=== PATIENT | male | born 1940 | race Caucasian/White ===

== ENCOUNTER → 2016-06-23 | Outpatient (CLI) | payer OTHER, BC ==
[~2016-06-23] MED LIST: CLC100 PO; CMD5 PO; CRD4 PO; CZR25 PO; DOCU100C31 PO; DOXA4TAB2 PO; FINA5TAB PO; FLV1 PO; HMLI SC; INSDGI SC; INSDGIPEN SC; INSU100I2 SQ; ISOS30TA3 PO; LEVO25TA5 PO; LSN25 PO; LUTE15CA PO; LUTE20CA PO; MAGN250T3 PO; MELA1TAB49 PO; METO25TA56 PO; MULT-506 PO; NTRGSL/4 UT; PLV75 PO; RPF/8 PO; SIMV40TA4 PO; THM100 PO; WARF-246 PO; WARF5TAB7 PO; WARF5TAB90 PO
[2016-06-23 12:56] LABS: ALT/SGPT 35 U/L (12-78); AST/SGOT 22 U/L (15-37); BLOOD UREA NITROGEN 29 mg/dl (7-18); BUN/CREATININE RATIO 20.4 (10-20); CALCIUM 9.1 mg/dl (8.5-10.1); CARBON DIOXIDE 28 mmol/L (21-32); CHLORIDE 102 mmol/L (98-107); GLUCOSE 165 mg/dl (70-99); POTASSIUM 4.7 mmol/L (3.5-5.1); SODIUM 139 mmol/L (136-145); TRIGLYCERIDES 62 mg/dl (0-150); VERY LOW DENSITY LIPOPROT CALC 12 mg/dl
[2016-06-23 13:07] LABS: ALB/GLOB RATIO 1.3 (0.9-2); ALKALINE PHOSPHATASE 55 U/L (45-117); CHOLESTEROL 170 mg/dl (0-200); HDL CHOLESTEROL 86 mg/dl; LDL CHOLESTEROL CALCULATED 72 mg/dl
[2016-06-23 13:13] LABS: HEMATOCRIT 42.6 % (42-52); MEAN CELL VOLUME 98.8 fL (80-100); MEAN CORPUSCULAR HGB CONC 35.4 g/dl (32-36); MEAN PLATELET VOLUME 10.7 fL (7.4-10.4); PLATELET COUNT 130 K/uL (130-400); RED BLOOD COUNT 4.31 M/uL (4.7-6.1); WHITE BLOOD COUNT 5.02 K/uL (4.8-10.8)
[2016-06-23 13:39] LABS: ESTIMATED AVERAGE GLUCOSE 169 mg/dl; HA1C FLAG Normal (Normal)
== END | disposition home or self-care (01) ==
LOC: C.LABBFT 07:54
PROVIDERS: ATTEND Internal Medicine Cardiovascular Disease
DX: E10.8 Type 1 diabetes mellitus with unspecified complications (principal); I10 Essential (primary) hypertension; E78.5 Hyperlipidemia, unspecified; I25.10 Atherosclerotic heart disease of native coronary artery without angina pectoris

== ENCOUNTER → 2016-10-07 | Outpatient (CLI) | payer OTHER, BC ==
[2016-10-07 13:12] LABS: ESTIMATED AVERAGE GLUCOSE 169 mg/dl; HA1C FLAG Normal (Normal)
== END | disposition home or self-care (01) ==
LOC: C.LABBFT 08:48
PROVIDERS: ATTEND Nurse Practitioner Adult Health
DX: E10.8 Type 1 diabetes mellitus with unspecified complications (principal)

== ENCOUNTER → 2016-12-18 | Outpatient (CLI) | payer OTHER, BC ==
[~2016-12-18] VITALS: Ht 182.9 cm; Wt 87.9 kg
[2016-12-18 13:43] VITALS: BP 157/93; PULSE 79; Ht 182.9 cm; Wt 87.9 kg
[2016-12-18 13:44] VITALS: BP 162/90; PULSE 71
== END | disposition home or self-care (01) ==
LOC: C.NEUR 13:11
PROVIDERS: ATTEND Internal Medicine Pulmonary Disease
DX: G47.31 Primary central sleep apnea (principal); I25.10 Atherosclerotic heart disease of native coronary artery without angina pectoris; R53.83 Other fatigue

== ENCOUNTER → 2016-12-22 | Outpatient (CLI) | payer OTHER, BC | END | disposition home or self-care (01) | LOC: C.LABBFT 11:08 | PROVIDERS: ATTEND Urology | DX: R35.1 Nocturia (principal) ==

== ENCOUNTER 2017-01-10 13:46 | Emergency (ER) | payer OTHER, BC ==
[~2017-01-10] VITALS: Ht 182.9 cm; Wt 87.0 kg
[~2017-01-10 13:46] MED LIST changes: -CZR25 PO; -DOCU100C31 PO; -DOXA4TAB2 PO; -INSDGIPEN SC; -INSU100I2 SQ; -ISOS30TA3 PO; -LEVO25TA5 PO; -LUTE15CA PO; -MAGN250T3 PO; -MELA1TAB49 PO; -WARF-246 PO; -WARF5TAB7 PO; -WARF5TAB90 PO
[2017-01-10 13:47] VITALS: TEMP 36.6; Ht 182.9 cm; Wt 87.0 kg
--- NOTE | 2017-01-10 14:12 | EMERGENCY ROOM VISIT NOTE ---
History First contact with patient: 14:05 Chief Complaint: BLEEDING Stated Complaint: HEMORRAGING SECOND TOE ON RT FOOT Nursing Triage Summary: pt reports he was clipping toenail cut toe has bleeding from middle toe. pt has hx of diabetes and is on coumadin. being teated at [facility] for hematoma on left foot History of Present Illness The patient is a 76 year old male who presents to the Emergency Room with complaints of bleeding. The patient has a history of CVA, PE and DVT. He takes Plavix and Coumadin. The patient states that he was cutting his toenails and accidentally cut his right third toe. It has been bleeding and he has been unable to get the bleeding to stop. His tetanus is up-to-date. He states his last INR was 2 weeks ago and was normal. He denies any falls or other injuries. He denies any pain. Review of Systems A 10 system review of systems was completed with positives and pertinent negatives listed in the HPI. Past Medical/Surgical History Medical Problems: (1) acute DVt and PE (2) Diabetes (3) Hyperlipemia (4) Hypertension Family History Cancer Diabetes mellitus Gallbladder disease Heart disease Hypertension Stroke Social History Smoking Status: Never Smoker Alcohol Use: none Drug Use: none Marital Status: Housing Status: lives with family Occupation Status: retired Current/Historical Medications Scheduled Clopidogrel Bisulfate (Clopidogrel), 75 MG PO QAM Docusate Sodium (Colace *), 300 MG PO QAM Doxazosin Mesylate (Cardura *), 4 MG PO QAM Finasteride (Proscar), 5 MG PO DAILY Folic Acid (Folic Acid), 1 MG PO QAM Insulin Glargine (Lantus), 13 UNITS SC QPM Insulin Lispro (Humalog), UNITS SC ACHS Lutein (Lutein), 25 MG PO DAILY Metoprolol Tartrate (Lopressor) (Lopressor), 25 MG PO BID Multivitamin (Multivitamin), 1 TABLET PO DAILY Nitroglycerin (Nitrostat), 0.4 MG UT PRN Silodosin (Rapaflo), 8 MG PO PM Simvastatin (Zocor), 40 MG PO QPM Thiamine HCl (Vitamin B-1), 100 MG PO QAM Warfarin Sod (Jantoven), 5 MG PO 6XWK Warfarin Sodium (Warfarin Sodium), 2.5 MG PO WEDNESDAY Physical Exam Vital Signs Date Time Temp Pulse Resp B/P (MAP) Pulse Ox O2 Delivery O2 Flow Rate FiO2 01/10/17 15:32 67 18 179/78 97 01/10/17 13:47 36.6 70 18 156/83 94 Room Air Physical Exam VITALS: Vitals are noted on the nurse's note and reviewed by myself. Vital signs stable. GENERAL: This is a 76-year-old male, in no acute distress, nondiaphoretic, well- developed well-nourished. SKIN: There is a very small, less than 0.5 cm she facial skin avulsion to the very distal aspect of the right second toe. This is just distal to the nail and does not seem to involve the nail. HEAD: Normocephalic atraumatic. EARS: The external ears are normal in appearance. EYES: Pupils equal round and reactive to light and accommodation. Conjunctivae without injection, sclerae without icterus. Extraocular movements intact. NOSE: Patent, turbinates without inflammation or discharge. MOUTH: Mucous membranes moist. Tongue does not deviate. NECK: Supple without nuchal rigidity. HEART: Regular rate and rhythm without murmurs gallops or rubs. LUNGS: Clear to auscultation bilaterally without wheezes, rales or rhonchi. No retractions or accessory muscle use. MUSCULOSKELETAL: Skin avulsion as above. There is a nonhealing wound to the left second toe for which he is been evaluated by wound care center and podiatry. The remaining extremities are otherwise unremarkable. NEURO: Patient was alert and oriented to person place and time. No focal neurological deficits. Medical Decision & Procedures Procedure The patient has a small skin avulsion to the right second toe. The patient is on Coumadin and Plavix. The wound continues to bleed. I gave the patient the option of trying Gelfoam or sutures. He and his with like to try the least invasive route. The wound was cleaned. Gelfoam was placed as well as cleaning. The patient was monitored for approximately 15 minutes but the wound continued to ooze. At this time, sutures were placed. A less then 0.5 cm skin avulsion/laceration to the right second toe was repaired. Using sterile technique the wound was cleaned with Betadine. The area was sterilely draped. 2 ml of 1% buffered lidocaine was used to anesthetize the toe. Once the patient was numb, the wound was copiously irrigated under pressure with sterile saline. The wound was explored and there were no deep structures such as tendons, bone, or ligaments present. The laceration was repaired using 2 simple interrupted 4-0 nylon sutures with the wound edges being well approximated. The patient tolerated the procedure well. The bleeding stopped. The area was cleaned with sterile saline and dressed with bacitracin ointment and bandage. ED Course The patient was seen and examined. Previous visits were reviewed. The patient has a small bleeding skin avulsion to the right second toe. He is on Coumadin and Plavix. He could not get the bleeding to stop at home. Initially, Gelfoam was tried but was unsuccessful. 2 sutures were then placed as above and the bleeding stopped. The patient's INR was checked and found to be 2.7. The patient should have the sutures removed in 10-12 days. He should return sooner with any worsening symptoms. He was advised to follow very closely with the wound care center and/or his family doctor to ensure that this heals well without infection given his history of neuropathy and diabetes. The patient was also seen and examined by who agrees with the assessment and treatment plan. Medical Decision The differential diagnosis includes arterial bleed, supratherapeutic INR, skin avulsion, laceration, among others Medication Reconcilliation Current Medication List: was personally reviewed by me Blood Pressure Screening Patient's blood pressure: Elevated blood pressure Blood pressure disposition: Elevated BP felt to be situational, Did not require urgent referral Impression Primary Impression: Toe laceration Departure Information Dispostion Home / Self-Care Condition GOOD Referrals Sheng Sherman M.D. (PCP) Patient Instructions ED Laceration All, My [facility] Additional Instructions Your INR was 2.7 today Keep wound clean and dry. Do not allow any crusting or dried blood to accumulate on sutures. If this occurs, use a 1:1 solution of hydrogen peroxide/ water on a Q-tip to clean the wound. Use an antibiotic ointment for 3-4 days, then let wound dry. Suture removal in 10-12 days. Return sooner for any signs of infection (increasing redness, swelling, drainage). Ice and elevate for swelling and pain. Keep covered when in sun until sutures removed then SPF 50 or higher for one year. Vitamin E oil if desired two weeks after suture removal for reduction of scar. Given the neuropathy, close follow up is imperative to ensure that this heals well and without infection. Follow up with podiatry, the wound center and/or your family doctor. Problem Qualifiers Primary Impression: Toe laceration Encounter type: initial encounter Toe: unspecified toe Damage to nail status: without damage Foreign body presence: without foreign body Laterality: right Qualified Codes: S91.119A - Laceration without foreign body of unspecified toe without damage to nail, initial encounter
[2017-01-10] MEDS ORDERED: WARF-246 PO (14:14)
[2017-01-10] MEDS ORDERED: WARF5TAB7 PO (14:15)
[2017-01-10] MEDS ORDERED: XYLOCAINE 1%/SOD BICARB 20 ML VIAL INFIL ONE (14:15)
[2017-01-10] MEDS ORDERED: GELATIN SPONGE 12-7MM ONE (14:31)
[2017-01-10 15:32] VITALS: BP 179/78; PULSE 67; O2SAT 97
--- NOTE | 2017-01-11 12:56 | EMERGENCY ROOM VISIT NOTE ---
ED Visit Note First contact with patient: 14:05 HPI: Skin avulsion or right 2nd phalanx after cutting nails. On coumadin. PE: AFVSS, NAD NC/AT RRR, no murmurs CTAB Abd soft NT/ND Ext: no edema, erythema. Skin avulsion or right 2nd phalanx with slow ooze/ bleeding. Neuro: grossly intact Plan: Surgi-foam attempted but not successful. Sutures placed. INR wnl. Already had scheduled f/u with wound clinic. I reviewed the patient's past medical history, medications, and visit nursing notes. I discussed the case with the physician senior office support assistant sosa, examined the patient, and agree with the findings and plan as documented in the physician assistants note. Problem List Medical Problems: (1) Diabetes Status: Chronic (2) Hyperlipemia Status: Chronic (3) Hypertension Status: Chronic Current/Historical Medications Scheduled Clopidogrel Bisulfate (Clopidogrel), 75 MG PO QAM Docusate Sodium (Colace *), 300 MG PO QAM Doxazosin Mesylate (Cardura *), 4 MG PO QAM Finasteride (Proscar), 5 MG PO DAILY Folic Acid (Folic Acid), 1 MG PO QAM Insulin Glargine (Lantus), 13 UNITS SC QPM Insulin Lispro (Humalog), UNITS SC ACHS Lutein (Lutein), 25 MG PO DAILY Metoprolol Tartrate (Lopressor) (Lopressor), 25 MG PO BID Multivitamin (Multivitamin), 1 TABLET PO DAILY Nitroglycerin (Nitrostat), 0.4 MG UT PRN Silodosin (Rapaflo), 8 MG PO PM Simvastatin (Zocor), 40 MG PO QPM Thiamine HCl (Vitamin B-1), 100 MG PO QAM Warfarin Sod (Jantoven), 5 MG PO 6XWK Warfarin Sodium (Warfarin Sodium), 2.5 MG PO WEDNESDAY Allergies Coded Allergies: Clindamycin (Verified Allergy, Intermediate, Rash, 01/10/17) Penicillins (Verified Allergy, Unknown, 01/10/17) Sulfa Antibiotics (Verified Allergy, Unknown, HIVES, 01/10/17) PER YUNIOR REYNOLDS (SHE SPOKE WITH PATIENT) Vital Signs Date Time Temp Pulse Resp B/P (MAP) Pulse Ox O2 Delivery O2 Flow Rate FiO2 01/10/17 15:32 67 18 179/78 97 01/10/17 13:47 36.6 70 18 156/83 94 Room Air Laboratory Results Test 01/10/17 14:25 Bedside Prothrombin Time INR 2.7 (0.9-1.1) Departure Information Impression Primary Impression: Toe laceration Dispostion Home / Self-Care Condition GOOD Referrals Sheng Sherman M.D. (PCP) Forms HOME CARE DOCUMENTATION FORM, IMPORTANT VISIT INFORMATION Patient Instructions My [facility], ED Laceration All Additional Instructions Your INR was 2.7 today Keep wound clean and dry. Do not allow any crusting or dried blood to accumulate on sutures. If this occurs, use a 1:1 solution of hydrogen peroxide/ water on a Q-tip to clean the wound. Use an antibiotic ointment for 3-4 days, then let wound dry. Suture removal in 10-12 days. Return sooner for any signs of infection (increasing redness, swelling, drainage). Ice and elevate for swelling and pain. Keep covered when in sun until sutures removed then SPF 50 or higher for one year. Vitamin E oil if desired two weeks after suture removal for reduction of scar. Given the neuropathy, close follow up is imperative to ensure that this heals well and without infection. Follow up with podiatry, the wound center and/or your family doctor.
== END 2017-01-10 15:33 | disposition home or self-care (01) ==
LOC: C.EDB 13:48
DX: S91.114A Laceration without foreign body of right lesser toe(s) without damage to nail, initial encounter (principal); W26.8XXA Contact with other sharp object(s), not elsewhere classified, initial encounter; Z79.01 Long term (current) use of anticoagulants; E11.9 Type 2 diabetes mellitus without complications; Z79.4 Long term (current) use of insulin; I10 Essential (primary) hypertension; E78.5 Hyperlipidemia, unspecified; Z79.899 Other long term (current) drug therapy; Z86.711 Personal history of pulmonary embolism; Z86.718 Personal history of other venous thrombosis and embolism; Z82.49 Family history of ischemic heart disease and other diseases of the circulatory system

== ENCOUNTER → 2017-01-13 | Outpatient (CLI) | payer OTHER, BC ==
[~2017-01-13] MED LIST changes: -CMD5 PO; +CZR25 PO; +DOCU100C31 PO; +DOXA4TAB2 PO; +INSDGIPEN SC; +INSU100I2 SQ; +LEVO25TA5 PO; -LSN25 PO; +LUTE15CA PO; +MAGN250T3 PO; +MELA1TAB49 PO; +WARF-246 PO; +WARF5TAB7 PO; +WARF5TAB90 PO
[2017-01-13 13:18] LABS: ESTIMATED AVERAGE GLUCOSE 157 mg/dl; HA1C FLAG Normal (Normal)
[2017-01-13 17:55] LABS: BLOOD UREA NITROGEN 20 mg/dl (7-18); BUN/CREATININE RATIO 16.6 (10-20); CALCIUM 8.8 mg/dl (8.5-10.1); CARBON DIOXIDE 26 mmol/L (21-32); CHLORIDE 104 mmol/L (98-107); GLUCOSE 236 mg/dl (70-99); POTASSIUM 4.3 mmol/L (3.5-5.1); SODIUM 136 mmol/L (136-145)
== END | disposition home or self-care (01) ==
LOC: C.LABBFT 11:03
PROVIDERS: ATTEND Nurse Practitioner Adult Health
DX: I10 Essential (primary) hypertension (principal); E55.9 Vitamin D deficiency, unspecified; E03.9 Hypothyroidism, unspecified; E10.8 Type 1 diabetes mellitus with unspecified complications

== ENCOUNTER → 2017-01-13 | Outpatient (CLI) | payer OTHER, BC ==
[2017-01-14 14:03] LABS: RATIO 6.5 mcg/mg (0-30.0)
== END | disposition home or self-care (01) ==
LOC: C.LABSPEC 09:23
PROVIDERS: ATTEND Nurse Practitioner Adult Health
DX: I10 Essential (primary) hypertension (principal); E55.9 Vitamin D deficiency, unspecified; E03.9 Hypothyroidism, unspecified; E10.8 Type 1 diabetes mellitus with unspecified complications

== ENCOUNTER 2017-01-18 23:24 | Emergency (ER) | payer OTHER, BC ==
[~2017-01-18] VITALS: Ht 182.9 cm; Wt 87.4 kg
[~2017-01-18 23:24] MED LIST changes: -CZR25 PO; -DOCU100C31 PO; -DOXA4TAB2 PO; -INSDGIPEN SC; -INSU100I2 SQ; -LEVO25TA5 PO; -LUTE15CA PO; -MAGN250T3 PO; -MELA1TAB49 PO; -WARF5TAB90 PO
[2017-01-18 23:33] VITALS: TEMP 37; O2SAT 96; Ht 182.9 cm; Wt 87.4 kg
[2017-01-18] MEDS ORDERED: LABETALOL HCL IV 5 MG/ML 20ML IV STA (23:33)
--- NOTE | 2017-01-18 23:41 | EMERGENCY ROOM VISIT NOTE ---
History Report prepared by Leroy: Yesenia Rai Under the Supervision of: Dr. Martin Blankenship M.D. First contact with patient: 23:29 Chief Complaint: HYPERTENSION Stated Complaint: HYPERTENSION History of Present Illness The patient is a 76 year old male who presents to the Emergency Room with complaints of an episode of hypertension starting this evening. He states he was started on Locorten 25 mg half a pill this morning. He reports that this evening he started feeling warm. He states he got up and moved around to try to help it. He notes that it didn't go away so he took his blood pressure. He reports that it was 110 over something. The patient notes that it he decided to come in. He denies shortness of breath, chest pain, nausea, vomiting, back pain , abdominal pain, headache, and falls. He notes he is on Warfarin and Insulin. He notes he was here a week ago for a laceration that required stitched on his foot. Source of History: patient Onset: this evening Position: other (global) Quality: other (global) Timing: other (episode) Associated Symptoms: No headache, No chest pain, No SOB, No nausea, No vomiting, No abdominal pain, No back pain Note: The patient complains of feeling warm. The patient denies any recent falls. Review of Systems See HPI for pertinent positives & negatives. A total of 10 systems reviewed and were otherwise negative. Past Medical & Surgical Medical Problems: (1) acute DVt and PE (2) Diabetes (3) Hyperlipemia (4) Hypertension Family History Cancer Diabetes mellitus Gallbladder disease Heart disease Hypertension Stroke Social History Smoking Status: Never Smoker Alcohol Use: none Drug Use: none Marital Status: Housing Status: lives with family Occupation Status: retired Current/Historical Medications Scheduled Clopidogrel Bisulfate (Clopidogrel), 75 MG PO QAM Docusate Sodium (Docusate Sodium), 300 MG PO QPM Doxazosin Mesylate (Cardura), 4 MG PO QAM Finasteride (Proscar), 5 MG PO QPM Folic Acid (Folic Acid), 1 MG PO QAM Insulin Glargine (Lantus Solostar), 12 UNITS SC HS Insulin Lispro (Human) (Humalog Kwikpen), UNITS SQ ACHS Levothyroxine Sodium (Levothyroxine Sodium), 25 MCG PO DAILY Losartan Potassium (Losartan Potassium), 12.5 MG PO DAILY Lutein-Zeaxanthin (Lutein), 1 CAP PO DAILY Magnesium (Magnesium 250 mg), 250 MG PO QAM Melatonin (Melatonin), 3 MG PO HS Metoprolol Tartrate (Lopressor) (Lopressor), 25 MG PO BID Multivitamin (Multivitamin), 1 TABLET PO DAILY Silodosin (Rapaflo), 8 MG PO PM Simvastatin (Zocor), 40 MG PO QPM Thiamine HCl (Vitamin B-1), 100 MG PO QAM Warfarin Sodium (Coumadin), 5 MG PO DAILY Scheduled PRN Nitroglycerin (Nitrostat), 0.4 MG UT UD PRN for Chest Pain Allergies Coded Allergies: Clindamycin (Verified Allergy, Intermediate, Rash, 01/19/17) Penicillins (Verified Allergy, Unknown, 01/19/17) Sulfa Antibiotics (Verified Allergy, Unknown, HIVES, 01/19/17) PER YUNIOR REYNOLDS (SHE SPOKE WITH PATIENT) Physical Exam Vital Signs Date Time Temp Pulse Resp B/P (MAP) Pulse Ox O2 Delivery O2 Flow Rate FiO2 01/19/17 00:36 82 18 180/101 94 Room Air 01/19/17 00:08 79 18 165/95 96 Room Air 01/19/17 00:04 81 18 191/92 95 Room Air 01/18/17 23:41 84 18 204/111 94 Room Air 01/18/17 23:33 99 01/18/17 23:33 96 Room Air 01/18/17 23:33 37.0 97 18 226/136 96 Room Air Physical Exam GENERAL: Patient is well appearing and in no acute distress. HEENT: No acute trauma, normocephalic atraumatic, mucous membranes moist, no nasal congestion, no scleral icterus. NECK: No stridor, no adenopathy, no meningismus, trachea is midline. LUNGS: No dyspnea. Clear to auscultation and equal bilaterally. No wheeze, no rhonchi. HEART: Regular rate and rhythm. No murmurs, rubs, gallops appreciated. ABDOMEN: Soft, nontender, bowel sounds positive, no masses appreciated, no peritonitis. BACK: No midline tenderness, no CVA tenderness EXTREMITIES: Normal motion all extremities, no cyanosis, no edema. Second toe of right foot has well healed laceration with sutures intact. NEUROLOGIC: Alert and oriented, no acute motor or sensory deficits, no focal weakness, cranial nerves grossly intact. SKIN: No rash, no jaundice, no diaphoresis. Medical Decision & Procedures Laboratory Results 01/18/17 23:48 Red Blood Count 4.34, Mean Corpuscular Volume 97.9, Mean Corpuscular Hemoglobin 34.3, Mean Corpuscular Hemoglobin Concent 35.1, Mean Platelet Volume 9.8, Neutrophils (%) (Auto) 64.7, Lymphocytes (%) (Auto) 22.1, Monocytes (%) (Auto) 11.1, Eosinophils (%) (Auto) 1.7, Basophils (%) (Auto) 0.2, Neutrophils # (Auto ) 3.83, Lymphocytes # (Auto) 1.31, Monocytes # (Auto) 0.66, Eosinophils # (Auto ) 0.10, Basophils # (Auto) 0.01 01/18/17 23:48 Test 01/18/17 23:48 White Blood Count 5.92 K/uL (4.8-10.8) Red Blood Count 4.34 M/uL (4.7-6.1) Hemoglobin 14.9 g/dL (14.0-18.0) Hematocrit 42.5 % (42-52) Mean Corpuscular Volume 97.9 fL (80-100) Mean Corpuscular Hemoglobin 34.3 pg (25-34) Mean Corpuscular Hemoglobin Concent 35.1 g/dl (32-36) Platelet Count 128 K/uL (130-400) Mean Platelet Volume 9.8 fL (7.4-10.4) Neutrophils (%) (Auto) 64.7 % Lymphocytes (%) (Auto) 22.1 % Monocytes (%) (Auto) 11.1 % Eosinophils (%) (Auto) 1.7 % Basophils (%) (Auto) 0.2 % Neutrophils # (Auto) 3.83 K/uL (1.4-6.5) Lymphocytes # (Auto) 1.31 K/uL (1.2-3.4) Monocytes # (Auto) 0.66 K/uL (0.11-0.59) Eosinophils # (Auto) 0.10 K/uL (0-0.5) Basophils # (Auto) 0.01 K/uL (0-0.2) RDW Standard Deviation 41.8 fL (36.4-46.3) RDW Coefficient of Variation 11.7 % (11.5-14.5) Immature Granulocyte % (Auto) 0.2 % Immature Granulocyte # (Auto) 0.01 K/uL (0.00-0.02) Prothrombin Time 20.7 SECONDS (9.0-12.0) Prothromb Time International Ratio 1.9 (0.9-1.1) Anion Gap 10.0 mmol/L (3-11) Est Creatinine Clear Calc Drug Dose 53.1 ml/min Estimated GFR () 61.4 Estimated GFR (Non- 53.0 BUN/Creatinine Ratio 18.0 (10-20) Calcium Level 8.7 mg/dl (8.5-10.1) Troponin I < 0.015 ng/ml (0-0.045) Chemistry Specimen Hemolysis Laboratory results as reviewed by me. Medications Administered Medications (Trade) Dose Ordered Sig/Yadi Route Start Time Stop Time Status Last Admin Dose Admin Labetalol HCl (Normodyne IV) 10 mg NOW STAT IV 01/18/17 23:33 01/18/17 23:35 DC 01/19/17 00:03 10 MG ECG Indication: other (hypertensive) Rate (beats per minute): 96 Rhythm: sinus rhythm Findings: PAC, PVC, no acute ischemic change ED Course 2329: The patient was evaluated in room A11B. A complete history and physical exam was performed. 2333: Ordered Labetalol HCl 10 mg IV. 0010: I removed 2 stitches from his toe. His blood pressure is 160/90. He has no further symptoms. 0058: Reevaluated the patient. Discussed results and discharge instructions: He verbalized understanding and agreement. The patient is ready for discharge. Medical Decision Differential: Benign Hypertension, Hypertensive Urgency/Emergency, Cardiovascular Pathology, Endocrine, Metabolic/Electrolyte, Renal Disease, Endorgan Damage, amongst other pathologies entertained. 76 yr old male arrives for complaint of HTN. Notes that he started feeling warm earlier and took his blood pressure with SBP 180s and thus called 911. At no time did he have any other symptoms. He looks fine other than a bit anxious. SBP 210 on arrival thus small dose Labetalol with SBP dropping to 160s. Assymtomatic and feeling well. Labs unremarkable. It doesn't appear 12.5 Losartan will be doing the trick, thus will have him increase this to 25 daily and continue monitoring BPs at home and with PCP. He was instructed symptoms to monitor for that would require RTED. INR mildly low side and will discuss with coumadin provider. Sutures right toe removed without issue. Head Trauma GCS Score: 15 Medication Reconcilliation Current Medication List: was personally reviewed by me Blood Pressure Screening Patient's blood pressure: Elevated blood pressure Blood pressure disposition: Referred to PCP Impression Primary Impression: Hypertension Additional Impressions: Encounter for removal of sutures Subtherapeutic anticoagulation Scribe Attestation The scribe's documentation has been prepared under my direction and personally reviewed by me in its entirety. I confirm that the note above accurately reflects all work, treatment, procedures, and medical decision making performed by me. Departure Information Dispostion Home / Self-Care Referrals Sheng Sherman M.D. (PCP) Forms HOME CARE DOCUMENTATION FORM, IMPORTANT VISIT INFORMATION, WORK / SCHOOL INSTRUCTIONS Patient Instructions My [facility] Additional Instructions Please increase your Losartan dose to 25 mg (one tablet) daily. It may be necessary to increase this even further down the road, though you should discuss this with your primary care provider for further decision regarding medication choices. Your blood pressure was elevated during this visit. This is quite common in many people who are being evaluated in the Emergency Department for many reasons. However, it is important that you have your Primary Care Provider recheck your blood pressure and discuss whether treatment will be needed. halfway elevated blood pressure can lead to strokes, heart attacks, kidney failure amongst other medical issues. If you develop severe headaches, chest pain, weakness in arms or legs, or other concerning symptoms call 911. Your INR was 1.9 today. This may just be variation in the timing of the lab check, but you should discuss this as soon as possible with your Coumadin Clinic , or whoever manages your Coumadin dosing. Your sutures were removed. Avoid further trauma to the area. Return if swelling, drainage, rash, pain, or other concerning symptoms. Problem Qualifiers
[2017-01-19 00:12] LABS: BASO % 0.2 %; BASO ABS # 0.01 K/uL (0-0.2); COMPLETE YES; EOS % 1.7 %; HEMATOCRIT 42.5 % (42-52); IG% 0.2 %; LYMPH % 22.1 %; LYMPH ABS # 1.31 K/uL (1.2-3.4); MEAN CELL VOLUME 97.9 fL (80-100); MEAN CORPUSCULAR HEMOGLOBIN 34.3 pg (25-34); MEAN CORPUSCULAR HGB CONC 35.1 g/dl (32-36); MEAN PLATELET VOLUME 9.8 fL (7.4-10.4); MONO % 11.1 %; NEUT % 64.7 %; PLATELET COUNT 128 K/uL (130-400); RED BLOOD COUNT 4.34 M/uL (4.7-6.1); WHITE BLOOD COUNT 5.92 K/uL (4.8-10.8)
[2017-01-19] MEDS ORDERED: WARF5TAB90 PO (00:15)
[2017-01-19] MEDS ORDERED: CZR25 PO (00:18)
[2017-01-19] MEDS ORDERED: LEVO25TA5 PO (00:18)
[2017-01-19 00:23] LABS: INR 1.9 (0.9-1.1); PROTHROMBIN TIME (PATIENT) 20.7 SECONDS (9.0-12.0)
[2017-01-19] MEDS ORDERED: DOXA4TAB2 PO (00:24)
[2017-01-19] MEDS ORDERED: INSU100I2 SQ (00:24)
[2017-01-19] MEDS ORDERED: LUTE15CA PO (00:24)
[2017-01-19] MEDS ORDERED: DOCU100C31 PO (00:24)
[2017-01-19] MEDS ORDERED: MELA1TAB49 PO (00:24)
[2017-01-19] MEDS ORDERED: MAGN250T3 PO (00:24)
[2017-01-19] MEDS ORDERED: INSDGIPEN SC (00:24)
[2017-01-19 00:32] LABS: BLOOD UREA NITROGEN 23 mg/dl (7-18); CALCIUM 8.7 mg/dl (8.5-10.1); CARBON DIOXIDE 25 mmol/L (21-32); CHLORIDE 103 mmol/L (98-107); GLUCOSE 233 mg/dl (70-99); POTASSIUM 4.1 mmol/L (3.5-5.1); SODIUM 138 mmol/L (136-145)
[2017-01-19 00:36] VITALS: BP 180/101; PULSE 82; O2SAT 94
== END 2017-01-19 01:02 | disposition home or self-care (01) ==
LOC: EDBD 23:24 → C.EDA 23:26
DX: I10 Essential (primary) hypertension (principal); R79.1 Abnormal coagulation profile; Z86.718 Personal history of other venous thrombosis and embolism; Z86.711 Personal history of pulmonary embolism; E11.9 Type 2 diabetes mellitus without complications; E78.5 Hyperlipidemia, unspecified; Z80.9 Family history of malignant neoplasm, unspecified; Z83.3 Family history of diabetes mellitus; Z83.79 Family history of other diseases of the digestive system; Z82.49 Family history of ischemic heart disease and other diseases of the circulatory system; Z79.4 Long term (current) use of insulin; Z79.01 Long term (current) use of anticoagulants; Z79.899 Other long term (current) drug therapy

== ENCOUNTER → 2017-01-29 | Outpatient (CLI) | payer OTHER, BC ==
[~2017-01-29] MED LIST changes: -CLC100 PO; -CRD4 PO; +CZR25 PO; +DOCU100C31 PO; +DOXA4TAB2 PO; -HMLI SC; -INSDGI SC; +INSDGIPEN SC; +INSU100I2 SQ; +LEVO25TA5 PO; +LUTE15CA PO; -LUTE20CA PO; +MAGN250T3 PO; +MELA1TAB49 PO; -WARF-246 PO; -WARF5TAB7 PO; +WARF5TAB90 PO
[2017-01-29 17:07] LABS: BLOOD UREA NITROGEN 19 mg/dl (7-18); BUN/CREATININE RATIO 13.7 (10-20); CALCIUM 8.5 mg/dl (8.5-10.1); CARBON DIOXIDE 27 mmol/L (21-32); CHLORIDE 102 mmol/L (98-107); GLUCOSE 186 mg/dl (70-99); MAGNESIUM 2.3 mg/dl (1.8-2.4); POTASSIUM 3.9 mmol/L (3.5-5.1); SODIUM 136 mmol/L (136-145)
== END | disposition home or self-care (01) ==
LOC: C.LABBFT 13:43
PROVIDERS: ATTEND Physician Assistant Medical
DX: I10 Essential (primary) hypertension (principal)

== ENCOUNTER → 2017-03-12 | Outpatient (CLI) | payer OTHER, BC ==
[2017-03-12 12:55] LABS: INR 2.2 (0.9-1.1); PROTHROMBIN TIME (PATIENT) 24.7 SECONDS (9.0-12.0)
[2017-03-12 13:11] LABS: BLOOD UREA NITROGEN 20 mg/dl (7-18); BUN/CREATININE RATIO 14.4 (10-20); CARBON DIOXIDE 27 mmol/L (21-32); CHLORIDE 102 mmol/L (98-107); GLUCOSE 248 mg/dl (70-99); POTASSIUM 4.6 mmol/L (3.5-5.1); SODIUM 135 mmol/L (136-145)
== END | disposition home or self-care (01) ==
LOC: C.LABBFT 10:07
PROVIDERS: ATTEND Physician Assistant Medical
DX: I10 Essential (primary) hypertension (principal); Z51.81 Encounter for therapeutic drug level monitoring; Z79.01 Long term (current) use of anticoagulants

== ENCOUNTER → 2017-06-14 | Outpatient (CLI) | payer OTHER, BC ==
[2017-06-14 18:22] LABS: HEMOGLOBIN 14.4 g/dL (14.0-18.0); MEAN CELL VOLUME 99.5 fL (80-100); MEAN CORPUSCULAR HGB CONC 35.1 g/dl (32-36); MEAN PLATELET VOLUME 10.3 fL (7.4-10.4); PLATELET COUNT 135 K/uL (130-400); RED CELL DISTRIBUTION WIDTH CV 12.5 % (11.5-14.5); RED CELL DISTRIBUTION WIDTH SD 45.1 fL (36.4-46.3); WHITE BLOOD COUNT 4.47 K/uL (4.8-10.8)
[2017-06-14 18:43] LABS: HEMOGLOBIN A1C 7.3 % (4.5-5.6)
== END | disposition home or self-care (01) ==
LOC: C.LABBFT 13:41
PROVIDERS: ATTEND Nurse Practitioner Adult Health
DX: E03.9 Hypothyroidism, unspecified (principal); E10.29 Type 1 diabetes mellitus with other diabetic kidney complication; I10 Essential (primary) hypertension; E78.5 Hyperlipidemia, unspecified; I25.10 Atherosclerotic heart disease of native coronary artery without angina pectoris; D68.59 Other primary thrombophilia; Z79.01 Long term (current) use of anticoagulants

== ENCOUNTER → 2017-06-18 | Outpatient (CLI) | payer OTHER, BC ==
[2017-06-18 14:16] LABS: ALKALINE PHOSPHATASE 67 U/L (45-117); ALT/SGPT 40 U/L (12-78); AST/SGOT 32 U/L (15-37); BLOOD UREA NITROGEN 23 mg/dl (7-18); CALCIUM 9.1 mg/dl (8.5-10.1); CARBON DIOXIDE 27 mmol/L (21-32); CHOLESTEROL 149 mg/dl (0-200); CREATININE 1.24 mg/dl (0.60-1.40); GLUCOSE 195 mg/dl (70-99); LDL CHOLESTEROL CALCULATED 57 mg/dl; SODIUM 137 mmol/L (136-145); TOTAL PROTEIN 7.2 gm/dl (6.4-8.2)
== END | disposition home or self-care (01) ==
LOC: C.LABBC 11:41
PROVIDERS: ATTEND Internal Medicine
DX: I12.9 Hypertensive chronic kidney disease with stage 1 through stage 4 chronic kidney disease, or unspecified chronic kidney disease (principal); I25.10 Atherosclerotic heart disease of native coronary artery without angina pectoris; G47.31 Primary central sleep apnea; D68.51 Activated protein C resistance; E03.9 Hypothyroidism, unspecified; N18.2 Chronic kidney disease, stage 2 (mild)

== ENCOUNTER → 2017-06-22 | Outpatient (CLI) | payer OTHER, BC ==
[~2017-06-22] VITALS: Ht 182.9 cm; Wt 90.9 kg
[2017-06-22 15:24] VITALS: BP 150/81; PULSE 77; Ht 182.9 cm; Wt 90.9 kg
== END | disposition home or self-care (01) ==
LOC: C.NEUR 14:10
PROVIDERS: ATTEND Internal Medicine Pulmonary Disease
DX: G47.31 Primary central sleep apnea (principal); G47.33 Obstructive sleep apnea (adult) (pediatric); R09.81 Nasal congestion

== ENCOUNTER 2017-09-22 16:31 | Emergency (ER) | payer OTHER, BC ==
[~2017-09-22] VITALS: Ht 182.9 cm; Wt 91.3 kg
[2017-09-22 16:38] VITALS: TEMP 36.3; Ht 182.9 cm; Wt 91.3 kg
[2017-09-22 18:19] LABS: BASO % 0.3 %; BASO ABS # 0.02 K/uL (0-0.2); EOS % 1.3 %; EOS ABS # 0.08 K/uL (0-0.5); HEMATOCRIT 40.3 % (42-52); HEMOGLOBIN 14.5 g/dL (14.0-18.0); IG# 0.01 K/uL (0.00-0.02); LYMPH % 25.3 %; LYMPH ABS # 1.52 K/uL (1.2-3.4); MEAN CELL VOLUME 97.6 fL (80-100); MEAN CORPUSCULAR HEMOGLOBIN 35.1 pg (25-34); MEAN PLATELET VOLUME 9.6 fL (7.4-10.4); MONO % 12.2 %; MONO ABS # 0.73 K/uL (0.11-0.59); NEUT % 60.7 %; NEUT ABS # 3.64 K/uL (1.4-6.5); PLATELET COUNT 151 K/uL (130-400)
[2017-09-22 18:33] LABS: BLOOD UREA NITROGEN 23 mg/dl (7-18); CALCIUM 9.1 mg/dl (8.5-10.1); CARBON DIOXIDE 30 mmol/L (21-32); CREATININE 1.45 mg/dl (0.60-1.40); GLUCOSE 238 mg/dl (70-99); POTASSIUM 4.4 mmol/L (3.5-5.1); SODIUM 134 mmol/L (136-145)
--- NOTE | 2017-09-22 18:37 | DIAGNOSTIC IMAGING REPORT ---
CHEST ONE VIEW PORTABLE CLINICAL HISTORY: 76 years-old Male presenting with Chest Pain. TECHNIQUE: Portable upright AP view of the chest was obtained. COMPARISON: 12/15/2015. FINDINGS: Atherosclerosis of aortic arch. Tortuosity of the descending thoracic aorta. Cardiac silhouette mildly enlarged. Minimal linear opacities at the left lung base. Lungs otherwise clear. No large pleural effusion or pneumothorax. Degenerative changes of the thoracic spine. IMPRESSION: 1. Mild cardiomegaly, however, this artifactual due to AP technique. 2. Suggestion of minimal left basilar atelectasis or scarring. Electronically signed by: Sheng Marroquin M.D. 09/22/2017 6:35 PM Dictated Date/Time: 09/22/2017 6:34 PM
[2017-09-22 18:38] LABS: CKMB 3.8 ng/ml (0.5-3.6)
[2017-09-22] MEDS ORDERED: FOLI1TAB8 PO (18:49)
[2017-09-22] MEDS ORDERED: WARF-246 PO ×2 (18:49)
[2017-09-22] MEDS ORDERED: CRD4 PO (18:49)
[2017-09-22] MEDS ORDERED: INSDGI SC (18:49)
[2017-09-22] MEDS ORDERED: PRS5 PO (18:49)
[2017-09-22] MEDS ORDERED: ZCR40 PO (18:49)
[2017-09-22] MEDS ORDERED: LOSA100T65 PO (18:49)
[2017-09-22] MEDS ORDERED: LPR25 PO (18:49)
[2017-09-22] MEDS ORDERED: PYRI100T4 PO (18:53)
[2017-09-22 18:57] LABS: INR 2.2 (0.9-1.1)
[2017-09-22] MEDS ORDERED: INSU100I SC (18:57)
[2017-09-22 19:43] VITALS: BP 177/93; PULSE 73; O2SAT 96
--- NOTE | 2017-09-23 00:01 | EMERGENCY ROOM VISIT NOTE ---
History Report prepared by Leroy: Caitlin Woo Under the Supervision of: Dr. Kishan Lloyd D.O. First contact with patient: 17:40 Chief Complaint: BACK PAIN Stated Complaint: UPPER BACK PAIN History of Present Illness The patient is a 76 year old male who presents to the Emergency Room with complaints of intermittent left upper back pain starting 3 days ago. The pain is near his shoulder blade. It worsens with movement and bending over and twisting his upper body towards the right. He has been taking Tylenol to some relief. There is no change with breathing. He has been coughing for the past 2 months. The cough has improved. He denies any weakness, numbness, runny nose, sore throat, abdominal pain, chest pain, or leg pain. His notes that he appeared flushed in the face one morning. His left ankle was also swollen yesterday. The patient is on warfarin for a history of blood clots. His INR 2 weeks ago and today was 2.5. He does not recall the last time his INR was low. He has a history of factor V Leiden. Source of History: patient, spouse/significant other Onset: 3 days ago Position: back (upper) Timing: intermittent Modifying Factors (Worsening): other (bending over) Modifying Factors (Relieving): tylenol Associated Symptoms: + cough, No sorethroat, No chest pain, No abdominal pain, No weakness, No numbness Review of Systems See HPI for pertinent positives & negatives. A total of 10 systems reviewed and were otherwise negative. Past Medical & Surgical Medical Problems: (1) acute DVt and PE (2) Diabetes (3) Hyperlipemia (4) Hypertension Family History Cancer Diabetes mellitus Gallbladder disease Heart disease Hypertension Stroke Social History Smoking Status: Never Smoker Alcohol Use: none Drug Use: none Marital Status: Housing Status: lives with family Occupation Status: retired Current/Historical Medications Scheduled Docusate Sodium (Docusate Sodium), 300 MG PO QPM Doxazosin Mesylate (Doxazosin Mesylate), 4 MG PO QAM Finasteride (Finasteride), 5 MG PO QPM Folic Acid (Folvite), 1 MG PO DAILY Insulin Glargine (Lantus), 25 UNITS SC QPM Insulin Lispro (Human) (Humalog), 1 DOSE SC ACHS Levothyroxine Sodium (Levothyroxine Sodium), 25 MCG PO DAILY Losartan Potassium (Cozaar), 100 MG PO QAM Lutein-Zeaxanthin (Lutein), 1 CAP PO DAILY Magnesium (Magnesium 250 mg), 250 MG PO DAILY Metoprolol Tartrate (Lopressor), 25 MG PO BID Multivitamin (Multivitamin), 1 TABLET PO DAILY Pyridoxine (Vitamin B6), 100 MG PO DAILY Silodosin (Rapaflo), 8 MG PO PM Simvastatin (Simvastatin), 40 MG PO QPM Warfarin Sodium (Warfarin Sodium), 2.5 MG PO 2XWK Warfarin Sodium (Warfarin Sodium), 5 MG PO 5XWK Scheduled PRN Nitroglycerin (Nitrostat), 0.4 MG UT UD PRN for Chest Pain Allergies Coded Allergies: Clindamycin (Verified Allergy, Intermediate, Rash, 01/19/17) Penicillins (Verified Allergy, Unknown, 01/19/17) Sulfa Antibiotics (Verified Allergy, Unknown, HIVES, 01/19/17) PER YUNIOR REYNOLDS (SHE SPOKE WITH PATIENT) Physical Exam Vital Signs Date Time Temp Pulse Resp B/P (MAP) Pulse Ox O2 Delivery O2 Flow Rate FiO2 09/22/17 19:43 73 16 177/93 96 09/22/17 19:07 67 18 163/93 96 Room Air 09/22/17 18:23 69 09/22/17 16:38 36.3 84 18 144/73 94 Room Air Physical Exam GENERAL: Sitting up in bed, alert, well appearing, well nourished, no distress, non-toxic EYE EXAM: normal conjunctiva. OROPHARYNX: no exudate, no erythema, lips, buccal mucosa, and tongue normal and mucous membranes are moist NECK: supple, no nuchal rigidity, no adenopathy, non-tender LUNGS: Clear to auscultation. Normal chest wall mechanics HEART: no murmurs, S1 normal and S2 normal ABDOMEN: abdomen soft, non-tender, normo-active bowel sounds, no masses, no rebound or guarding. BACK: Back is symmetrical on inspection and there is no deformity, no midline tenderness, no CVA tenderness. SKIN: no rashes and no bruising UPPER EXTREMITIES: upper extremities are grossly normal. LOWER EXTREMITIES: No pitting edema. NEURO EXAM: Normal sensorium, cranial nerves II-XII grossly intact, normal speech, no gross weakness of arms, no gross weakness of legs. Medical Decision & Procedures ER Provider Diagnostic Interpretation: Radiology results as stated below per my review and the radiologist's interpretation: CHEST ONE VIEW PORTABLE CLINICAL HISTORY: 76 years-old Male presenting with Chest Pain. TECHNIQUE: Portable upright AP view of the chest was obtained. COMPARISON: 12/15/2015. FINDINGS: Atherosclerosis of aortic arch. Tortuosity of the descending thoracic aorta. Cardiac silhouette mildly enlarged. Minimal linear opacities at the left lung base. Lungs otherwise clear. No large pleural effusion or pneumothorax. Degenerative changes of the thoracic spine. IMPRESSION: 1. Mild cardiomegaly, however, this artifactual due to AP technique. 2. Suggestion of minimal left basilar atelectasis or scarring. Electronically signed by: Sheng Marroquin M.D. 09/22/2017 6:35 PM Dictated Date/Time: 09/22/2017 6:34 PM Laboratory Results 09/22/17 18:05 Red Blood Count 4.13, Mean Corpuscular Volume 97.6, Mean Corpuscular Hemoglobin 35.1, Mean Corpuscular Hemoglobin Concent 36.0, Mean Platelet Volume 9.6, Neutrophils (%) (Auto) 60.7, Lymphocytes (%) (Auto) 25.3, Monocytes (%) (Auto) 12.2, Eosinophils (%) (Auto) 1.3, Basophils (%) (Auto) 0.3, Neutrophils # (Auto ) 3.64, Lymphocytes # (Auto) 1.52, Monocytes # (Auto) 0.73, Eosinophils # (Auto ) 0.08, Basophils # (Auto) 0.02 09/22/17 18:05 Test 09/22/17 18:05 White Blood Count 6.00 K/uL (4.8-10.8) Red Blood Count 4.13 M/uL (4.7-6.1) Hemoglobin 14.5 g/dL (14.0-18.0) Hematocrit 40.3 % (42-52) Mean Corpuscular Volume 97.6 fL (80-100) Mean Corpuscular Hemoglobin 35.1 pg (25-34) Mean Corpuscular Hemoglobin Concent 36.0 g/dl (32-36) Platelet Count 151 K/uL (130-400) Mean Platelet Volume 9.6 fL (7.4-10.4) Neutrophils (%) (Auto) 60.7 % Lymphocytes (%) (Auto) 25.3 % Monocytes (%) (Auto) 12.2 % Eosinophils (%) (Auto) 1.3 % Basophils (%) (Auto) 0.3 % Neutrophils # (Auto) 3.64 K/uL (1.4-6.5) Lymphocytes # (Auto) 1.52 K/uL (1.2-3.4) Monocytes # (Auto) 0.73 K/uL (0.11-0.59) Eosinophils # (Auto) 0.08 K/uL (0-0.5) Basophils # (Auto) 0.02 K/uL (0-0.2) RDW Standard Deviation 43.0 fL (36.4-46.3) RDW Coefficient of Variation 12.0 % (11.5-14.5) Immature Granulocyte % (Auto) 0.2 % Immature Granulocyte # (Auto) 0.01 K/uL (0.00-0.02) Prothrombin Time 22.7 SECONDS (9.0-12.0) Prothromb Time International Ratio 2.2 (0.9-1.1) D-Dimer 260 ug/L FEU (0-500) Anion Gap 1.0 mmol/L (3-11) Est Creatinine Clear Calc Drug Dose 47.6 ml/min Estimated GFR () 53.8 Estimated GFR (Non- 46.4 BUN/Creatinine Ratio 15.9 (10-20) Calcium Level 9.1 mg/dl (8.5-10.1) Total Creatine Kinase 239 U/L (39-308) Creatine Kinase MB 3.8 ng/ml (0.5-3.6) Creatine Kinase MB Ratio 1.6 (0-3.0) Troponin I < 0.015 ng/ml (0-0.045) Laboratory results per my review. ECG Per My Interpretation Indication: back/shoulder pain Rate (beats per minute): 74 Rhythm: sinus rhythm Findings: Q waves (Septal), T-wave inversion (Lateral), other (normal axis, ST wave flattening laterally) Comparison ECG Date: 18-Jan-2017 Change: T wave inversion in V4 is new. ED Course ED COURSE: Vital signs were reviewed and showed normal vitals. The patients medical record was reviewed The above diagnostic studies were performed and reviewed. ED treatments and interventions as stated above. 1744: The patient was evaluated in room B6. A complete history and physical examination was performed. 1910: Upon reevaluation, the patient is resting comfortably.I discussed my findings with the patient and he understands and agrees with the treatment plan. Based on the patients age, coexisting illnesses, exam and lab findings the decision to treat as an outpatient was made. The patient remained stable while under my care. The patient appeared well at the time of discharge. Medical Decision Differential diagnoses includes but is not limited to lumbar radiculopathy, kidney stone, muscle strain, facture, cauda equina, mass, and disc herniation. Patient is a 76-year-old male that presents to ER for left upper shoulder/back pain which started Wednesday. It is worse with twisting turning bending. He did have an upper respiratory infection which resolved about a week ago. CBC along with BMP and troponin was unremarkable with pain that has been present for greater than 8 hours. BSG was slightly elevated. D-dimer was negative. Chest x-ray did show some atelectasis in the left lower lobe. No fevers. Cough has nearly completely resolved. Based on symptoms I do believe as though this is likely musculoskeletal secondary to the coughing. INR was therapeutic at 2.2. We will not CT PE at this time especially with a normal dimer, therapeutic INR and EKG which only has one new flipped T-wave in V4. Discussed with Pt concerning signs and symptoms to watch out for. Pt was instructed to follow up with their PCP and discussed with the patient their option to return to the ED at anytime for persistent or worsening symptoms. The appropriate anticipatory guidance and out-patient management, including indications for return to the emergency department, were explained at length to the patient and understood. Medication Reconcilliation Current Medication List: was personally reviewed by me Blood Pressure Screening Patient's blood pressure: Normal blood pressure Blood pressure disposition: Did not require urgent referral Impression Primary Impression: Back pain Scribe Attestation The scribe's documentation has been prepared under my direction and personally reviewed by me in its entirety. I confirm that the note above accurately reflects all work, treatment, procedures, and medical decision making performed by me. Departure Information Dispostion Home / Self-Care Referrals Sheng Sherman M.D. (PCP) Forms HOME CARE DOCUMENTATION FORM, IMPORTANT VISIT INFORMATION Patient Instructions Back Pain - [facility], My [facility] Additional Instructions Please follow up with your primary care doctor with in the next 24 hours. Any worsening of your symptoms, please return to the ED immediately. This includes any fevers greater than 100.4, worsening pain, chest pain, shortness breath, persistent nausea, vomiting, unable to eat or drink, or any other concerning signs or symptoms from your standpoint. Please take Tylenol or Motrin as needed for pain. Problem Qualifiers Primary Impression: Back pain Back pain location: back pain in unspecified location Chronicity: acute Back pain laterality: left Qualified Codes: M54.9 - Dorsalgia, unspecified
== END 2017-09-22 19:46 | disposition home or self-care (01) ==
LOC: C.EDB 16:32
DX: M54.9 Dorsalgia, unspecified (principal); E11.9 Type 2 diabetes mellitus without complications; E78.5 Hyperlipidemia, unspecified; I10 Essential (primary) hypertension; Z79.4 Long term (current) use of insulin; Z79.01 Long term (current) use of anticoagulants; Z51.81 Encounter for therapeutic drug level monitoring; Z88.8 Allergy status to other drugs, medicaments and biological substances; Z88.0 Allergy status to penicillin; Z88.2 Allergy status to sulfonamides

== ENCOUNTER 2017-10-12 11:04 | Inpatient (IN) | payer OTHER, BC ==
[~2017-10-12] VITALS: Ht 182.9 cm; Wt 85.6 kg
[~2017-10-12 11:04] MED LIST changes: +CRD4 PO; -CZR25 PO; -DOXA4TAB2 PO; -FINA5TAB PO; -FLV1 PO; +FOLI1TAB8 PO; +INSDGI SC; -INSDGIPEN SC; +INSU100I SC; -INSU100I2 SQ; +LOSA100T65 PO; +LPR25 PO; -MELA1TAB49 PO; -METO25TA56 PO; -PLV75 PO; +PRS5 PO; +PYRI100T4 PO; -SIMV40TA4 PO; -THM100 PO; +WARF-246 PO; -WARF5TAB90 PO; +ZCR40 PO
--- NOTE | 2017-10-12 11:44 | EMERGENCY ROOM VISIT NOTE ---
History Report prepared by Leroy: Estevan Trivedi Under the Supervision of: Dr. Duncan Teague M.D. First contact with patient: 11:26 Chief Complaint: CHEST PAIN Stated Complaint: TINGLING LEFT ARM, HIGH BP History of Present Illness The patient is a 76 year old male who presents to the Emergency Room with complaints of intermittent shortness of breath and chest pain that has been "going on for a few days." The patient describes the pain as feeling like "indigestion." His shortness of breath was noticeably worsened this afternoon by walking up and down his driveway, which is at an incline. He also notes some "tingling" in his left arm. Nothing seems to improve any of his symptoms. 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 He is on Coumadin and had his INR checked 3 weeks ago. There was no shortness of breath with his previous PE episodes. Source of History: patient Onset: a few days Position: chest Quality: other ("indigestion feeling) Timing: intermittent Modifying Factors (Worsening): exertion (worsens the SOB) Associated Symptoms: + SOB, + numbness (and tingling in the left arm) Review of Systems See HPI for pertinent positives & negatives. A total of 10 systems reviewed and were otherwise negative. Past Medical & Surgical Medical Problems: (1) acute DVt and PE (2) Diabetes (3) Hyperlipemia (4) Hypertension (5) Stroke (6) Troponin I above reference range Family History Cancer Diabetes mellitus Gallbladder disease Heart disease Hypertension Stroke Social History Smoking Status: Never Smoker Alcohol Use: none Drug Use: none Marital Status: Housing Status: lives with family Occupation Status: retired Current/Historical Medications Scheduled Docusate Sodium (Docusate Sodium), 300 MG PO QPM Doxazosin Mesylate (Doxazosin Mesylate), 4 MG PO QAM Finasteride (Finasteride), 5 MG PO QPM Folic Acid (Folvite), 1 MG PO DAILY Insulin Glargine (Lantus), 25 UNITS SC QPM Insulin Lispro (Human) (Humalog), 1 DOSE SC ACHS Levothyroxine Sodium (Levothyroxine Sodium), 25 MCG PO DAILY Losartan Potassium (Cozaar), 100 MG PO QAM Lutein-Zeaxanthin (Lutein), 1 CAP PO DAILY Magnesium (Magnesium 250 mg), 250 MG PO DAILY Metoprolol Tartrate (Lopressor), 25 MG PO BID Multivitamin (Multivitamin), 1 TABLET PO DAILY Pyridoxine (Vitamin B6), 100 MG PO DAILY Silodosin (Rapaflo), 8 MG PO PM Simvastatin (Simvastatin), 40 MG PO QPM Warfarin Sodium (Warfarin Sodium), 2.5 MG PO 2XWK Warfarin Sodium (Warfarin Sodium), 5 MG PO 5XWK Scheduled PRN Nitroglycerin (Nitrostat), 0.4 MG UT UD PRN for Chest Pain Allergies Coded Allergies: Clindamycin (Verified Allergy, Intermediate, Rash, 01/19/17) Penicillins (Verified Allergy, Unknown, 01/19/17) Sulfa Antibiotics (Verified Allergy, Unknown, HIVES, 01/19/17) PER YUNIOR REYNOLDS (SHE SPOKE WITH PATIENT) Physical Exam Vital Signs Date Time Temp Pulse Resp B/P (MAP) Pulse Ox O2 Delivery O2 Flow Rate FiO2 10/12/17 13:31 66 16 136/87 10/12/17 12:34 71 20 141/75 96 Room Air 10/12/17 12:18 96 Room Air 10/12/17 12:18 96 Ambu-Bag 10/12/17 12:16 74 16 129/77 10/12/17 12:01 70 10/12/17 11:09 36.5 89 22 139/80 96 Room Air Physical Exam GENERAL: Awake, alert, well-appearing, in no acute distress HENT: Normocephalic, atraumatic. Oropharynx unremarkable. EYES: Normal conjunctiva. Sclera non-icteric. NECK: Supple. No nuchal rigidity. FROM. No JVD. RESPIRATORY: Clear to auscultation. CARDIAC: Regular rate, normal rhythm. Extremities warm and well perfused. Pulses equal. ABDOMEN: Soft, non-distended. No tenderness to palpation. No rebound or guarding. No masses. RECTAL: Deferred. MUSCULOSKELETAL: Chest examination reveals no tenderness. The back is symmetrical on inspection without obvious abnormality. There is no CVA tenderness to palpation. No joint edema. LOWER EXTREMITIES: Calves are equal size bilaterally and non-tender. No edema. No discoloration. NEURO: Normal sensorium. No sensory or motor deficits noted. SKIN: No rash or jaundice noted. Medical Decision & Procedures ER Provider Diagnostic Interpretation: Radiology results as stated below per my review and radiologist interpretation: (CHEST FOR PE) ANGIO WITH CT DOSE: 441.63 mGy.cm HISTORY: 76 years-old Male presents with acute atypical chest pain, shortness of breath and left arm tingling TECHNIQUE: Multiple CTA images of the chest were obtained after the intravenous administration of 93 ml Optiray 320. Coronal and sagittal MIPS were obtained from the axial data set and were submitted for review. A dose lowering technique was utilized adhering to the principles of ALARA. COMPARISON: Chest radiograph of same day, CTA chest 12/15/2015. FINDINGS: CTA: Mild multichamber cardiac enlargement without pericardial effusion. Three-vessel distribution of coronary arterial calcifications. Mild dilation of the ascending thoracic aorta, 4.0 x 4.0 cm. No dissection. Moderate atherosclerosis of the aorta and proximal great vessels. Mild kinking of the mid left subclavian artery causing approximately 50% luminal narrowing. Reflux of contrast into the IVC. Pulmonary arterial tree is opacified to level of the subsegmental branches. Evaluation is somewhat limited secondary to respiratory motion. No focal filling defects identified to suggest pulmonary thromboembolic disease. CT CHEST: No dominant thyroid nodule identified. No pathologic adenopathy. There is no pneumothorax or pleural effusion. Dependent subsegmental atelectasis with linear subsegmental opacities of the right lower lobe suggesting atelectasis or scarring. There are no suspicious pulmonary nodules or masses identified. Central airways are patent. Multiple low attenuating lesions throughout the liver redemonstrated measuring up to 1.7 cm within the posterior right hepatic lobe suggesting probable hepatic cysts. No acute process of the imaged upper abdomen. Soft tissues are within normal limits. Multilevel facet arthrosis and endplate spurring about the spine. The bones appear intact. IMPRESSION: 1. Mild fusiform dilation of the ascending thoracic aorta, 4.0 x 4.0 cm. No thoracic aortic dissection. 2. No evidence of pulmonary thromboembolic disease. 3. No lobar airspace consolidation or pathologic adenopathy. 4. Additional findings as above. The above report was generated using voice recognition software. It may contain grammatical, syntax or spelling errors. Electronically signed by: Sadiq Morin M.D. 10/12/2017 1:15 PM Dictated Date/Time: 10/12/2017 1:09 PM CHEST ONE VIEW PORTABLE HISTORY: 76 years-old Male CHEST PAIN acute atypical chest pain COMPARISON: Chest radiograph 09/22/2017 TECHNIQUE: Portable AP view of the chest FINDINGS: Cardiac silhouette is mildly enlarged. Atherosclerosis of the aorta. No pneumothorax, pleural effusion or overt pulmonary edema. Subsegmental bibasilar opacities favor atelectasis. Degenerative changes of the shoulders and spine. IMPRESSION: 1. No acute process. 2. Cardiomegaly without overt pulmonary edema. 3. Minimal subsegmental bibasilar atelectasis. The above report was generated using voice recognition software. It may contain grammatical, syntax or spelling errors. Electronically signed by: Sadiq Morin M.D. 10/12/2017 12:04 PM Dictated Date/Time: 10/12/2017 12:03 PM Laboratory Results 10/12/17 11:55 Red Blood Count 4.34, Mean Corpuscular Volume 96.3, Mean Corpuscular Hemoglobin 34.6, Mean Corpuscular Hemoglobin Concent 35.9, Mean Platelet Volume 9.8, Neutrophils (%) (Auto) 77.0, Lymphocytes (%) (Auto) 14.9, Monocytes (%) (Auto) 7.0, Eosinophils (%) (Auto) 0.6, Basophils (%) (Auto) 0.2, Neutrophils # (Auto) 4.97, Lymphocytes # (Auto) 0.96, Monocytes # (Auto) 0.45, Eosinophils # (Auto) 0.04, Basophils # (Auto) 0.01 10/12/17 11:55 Test 10/12/17 11:55 White Blood Count 6.45 K/uL (4.8-10.8) Red Blood Count 4.34 M/uL (4.7-6.1) Hemoglobin 15.0 g/dL (14.0-18.0) Hematocrit 41.8 % (42-52) Mean Corpuscular Volume 96.3 fL (80-100) Mean Corpuscular Hemoglobin 34.6 pg (25-34) Mean Corpuscular Hemoglobin Concent 35.9 g/dl (32-36) Platelet Count 145 K/uL (130-400) Mean Platelet Volume 9.8 fL (7.4-10.4) Neutrophils (%) (Auto) 77.0 % Lymphocytes (%) (Auto) 14.9 % Monocytes (%) (Auto) 7.0 % Eosinophils (%) (Auto) 0.6 % Basophils (%) (Auto) 0.2 % Neutrophils # (Auto) 4.97 K/uL (1.4-6.5) Lymphocytes # (Auto) 0.96 K/uL (1.2-3.4) Monocytes # (Auto) 0.45 K/uL (0.11-0.59) Eosinophils # (Auto) 0.04 K/uL (0-0.5) Basophils # (Auto) 0.01 K/uL (0-0.2) RDW Standard Deviation 42.3 fL (36.4-46.3) RDW Coefficient of Variation 12.0 % (11.5-14.5) Immature Granulocyte % (Auto) 0.3 % Immature Granulocyte # (Auto) 0.02 K/uL (0.00-0.02) Prothrombin Time 18.0 SECONDS (9.0-12.0) Prothromb Time International Ratio 1.7 (0.9-1.1) Anion Gap 8.0 mmol/L (3-11) Est Creatinine Clear Calc Drug Dose 50.0 ml/min Estimated GFR () 57.2 Estimated GFR (Non- 49.3 BUN/Creatinine Ratio 14.1 (10-20) Calcium Level 8.7 mg/dl (8.5-10.1) Total Bilirubin 0.8 mg/dl (0.2-1) Direct Bilirubin 0.2 mg/dl (0-0.2) Aspartate Amino Transf (AST/SGOT) 25 U/L (15-37) Alanine Aminotransferase (ALT/SGPT) 32 U/L (12-78) Alkaline Phosphatase 63 U/L (45-117) Total Creatine Kinase 194 U/L (39-308) Creatine Kinase MB 3.0 ng/ml (0.5-3.6) Creatine Kinase MB Ratio 1.5 (0-3.0) Troponin I 0.415 ng/ml (0-0.045) Total Protein 7.3 gm/dl (6.4-8.2) Albumin 3.8 gm/dl (3.4-5.0) Lipase 153 U/L (73-393) Labs reviewed by ED physician. Medications Administered Medications (Trade) Dose Ordered Sig/Yadi Route Start Time Stop Time Status Last Admin Dose Admin Aspirin (Aspirin Chew) 324 mg NOW STAT PO 10/12/17 11:45 10/12/17 11:46 DC 10/12/17 12:16 324 MG ECG Per My Interpretation Indication: SOB/dyspnea Rate (beats per minute): 80 Rhythm: normal sinus Findings: other (Old anterior infarct, no YEE/STD) Change: Repeat EKG is unchanged at 70 bpm. ED Course 1131: Past medical records reviewed. The patient was evaluated in room C8. A complete history and physical examination was performed. 1145: Ordered Nitroglycerin 0.4 mg SL, Aspirin 234 mg PO. 1242: I [facility] She will evaluate the patient for further treatment. Medical Decision Differential diagnosis: Etiologies such as infections, reactive airway disease, pneumonia, pneumothorax , COPD, CHF, cardiac ischemia, pulmonary embolism, musculoskeletal, gastrointestinal, as well as others were entertained. This is a 76-year-old male who presents emergency department complaining of chest pain along with left arm numbness and tingling. Patient was given aspirin here in the emergency department however he refused nitro. He was found to have an elevation in his troponin. His INR was also found to be subtherapeutic. For this reason and based on the patient's past medical history he was sent for a CAT scan of the chest. This did not show any evidence of a PE. Based on the patient's EKGs and troponin I recommended he be admitted to the hospital. I did discuss the case with the hospitalist service who agreed to admit the patient. Both patient and are in agreement with the treatment plan. Medication Reconcilliation Current Medication List: was personally reviewed by me Blood Pressure Screening Patient's blood pressure: Elevated blood pressure Blood pressure disposition: Elevated BP felt to be situational Consults Time Called: [phone] Consulting Physician: Denise Melissa PA-C Returned Call: [phone] I discussed the case with Denise Melissa PA-C. She will evaluate the patient for further treatment. Impression Primary Impression: Substernal precordial chest pain Scribe Attestation The scribe's documentation has been prepared under my direction and personally reviewed by me in its entirety. I confirm that the note above accurately reflects all work, treatment, procedures, and medical decision making performed by me. Departure Information Dispostion Being Evaluated By Hospitalist Referrals Sheng Sherman M.D. (PCP) Patient Instructions My [facility]
[2017-10-12] MEDS ORDERED: NITROGLYCERIN 0.4 MG SL PER TAB CHARGE SL PRN ×2 (11:45→14:00)
[2017-10-12] MEDS ORDERED: ASPIRIN 81 MG CHEW PO STA (11:45)
--- NOTE | 2017-10-12 12:06 | DIAGNOSTIC IMAGING REPORT ---
CHEST ONE VIEW PORTABLE HISTORY: 76 years-old Male CHEST PAIN acute atypical chest pain COMPARISON: Chest radiograph 09/22/2017 TECHNIQUE: Portable AP view of the chest FINDINGS: Cardiac silhouette is mildly enlarged. Atherosclerosis of the aorta. No pneumothorax, pleural effusion or overt pulmonary edema. Subsegmental bibasilar opacities favor atelectasis. Degenerative changes of the shoulders and spine. IMPRESSION: 1. No acute process. 2. Cardiomegaly without overt pulmonary edema. 3. Minimal subsegmental bibasilar atelectasis. The above report was generated using voice recognition software. It may contain grammatical, syntax or spelling errors. Electronically signed by: Sadiq Morin M.D. 10/12/2017 12:04 PM Dictated Date/Time: 10/12/2017 12:03 PM
[2017-10-12 12:07] LABS: BASO % 0.2 %; BASO ABS # 0.01 K/uL (0-0.2); EOS % 0.6 %; EOS ABS # 0.04 K/uL (0-0.5); HEMATOCRIT 41.8 % (42-52); IG# 0.02 K/uL (0.00-0.02); LYMPH % 14.9 %; LYMPH ABS # 0.96 K/uL (1.2-3.4); MEAN CELL VOLUME 96.3 fL (80-100); MEAN CORPUSCULAR HEMOGLOBIN 34.6 pg (25-34); MEAN CORPUSCULAR HGB CONC 35.9 g/dl (32-36); MEAN PLATELET VOLUME 9.8 fL (7.4-10.4); MONO ABS # 0.45 K/uL (0.11-0.59); NEUT ABS # 4.97 K/uL (1.4-6.5); PLATELET COUNT 145 K/uL (130-400); RED CELL DISTRIBUTION WIDTH SD 42.3 fL (36.4-46.3); WHITE BLOOD COUNT 6.45 K/uL (4.8-10.8)
[2017-10-12 12:14] LABS: INR 1.7 (0.9-1.1)
[2017-10-12 12:23] LABS: ALBUMIN 3.8 gm/dl (3.4-5.0); CALCIUM 8.7 mg/dl (8.5-10.1); CREATININE 1.38 mg/dl (0.60-1.40); POTASSIUM 4.1 mmol/L (3.5-5.1)
[2017-10-12 12:30] LABS: TOTAL PROTEIN 7.3 gm/dl (6.4-8.2)
[2017-10-12] MEDS ORDERED: OPTIRAY 320 IV PRN (12:30)
--- NOTE | 2017-10-12 13:17 | DIAGNOSTIC IMAGING REPORT ---
(CHEST FOR PE) ANGIO WITH CT DOSE: 441.63 mGy.cm HISTORY: 76 years-old Male presents with acute atypical chest pain, shortness of breath and left arm tingling TECHNIQUE: Multiple CTA images of the chest were obtained after the intravenous administration of 93 ml Optiray 320. Coronal and sagittal MIPS were obtained from the axial data set and were submitted for review. A dose lowering technique was utilized adhering to the principles of ALARA. COMPARISON: Chest radiograph of same day, CTA chest 12/15/2015. FINDINGS: CTA: Mild multichamber cardiac enlargement without pericardial effusion. Three-vessel distribution of coronary arterial calcifications. Mild dilation of the ascending thoracic aorta, 4.0 x 4.0 cm. No dissection. Moderate atherosclerosis of the aorta and proximal great vessels. Mild kinking of the mid left subclavian artery causing approximately 50% luminal narrowing. Reflux of contrast into the IVC. Pulmonary arterial tree is opacified to level of the subsegmental branches. Evaluation is somewhat limited secondary to respiratory motion. No focal filling defects identified to suggest pulmonary thromboembolic disease. CT CHEST: No dominant thyroid nodule identified. No pathologic adenopathy. There is no pneumothorax or pleural effusion. Dependent subsegmental atelectasis with linear subsegmental opacities of the right lower lobe suggesting atelectasis or scarring. There are no suspicious pulmonary nodules or masses identified. Central airways are patent. Multiple low attenuating lesions throughout the liver redemonstrated measuring up to 1.7 cm within the posterior right hepatic lobe suggesting probable hepatic cysts. No acute process of the imaged upper abdomen. Soft tissues are within normal limits. Multilevel facet arthrosis and endplate spurring about the spine. The bones appear intact. IMPRESSION: 1. Mild fusiform dilation of the ascending thoracic aorta, 4.0 x 4.0 cm. No thoracic aortic dissection. 2. No evidence of pulmonary thromboembolic disease. 3. No lobar airspace consolidation or pathologic adenopathy. 4. Additional findings as above. The above report was generated using voice recognition software. It may contain grammatical, syntax or spelling errors. Electronically signed by: Sadiq Morin M.D. 10/12/2017 1:15 PM Dictated Date/Time: 10/12/2017 1:09 PM
[2017-10-12] MEDS ORDERED: POLYETHYLENE (MIRALAX) 17 GM PACK PO PRN (14:00)
[2017-10-12] MEDS ORDERED: ONDANSETRON INJ 2 MG/ML 2 ML VIAL IV PRN (14:00)
[2017-10-12] MEDS ORDERED: MAGNESIUM HYDROXIDE SUSP 30 ML UDC PO PRN (14:00)
[2017-10-12] MEDS ORDERED: ACETAMINOPHEN 325 MG TAB PO PRN (14:00)
[2017-10-12] MEDS ORDERED: MoRPHine SULFATE 4 MG/ML 1 ML CARP\\VIAL IV PRN (14:00)
[2017-10-12] MEDS ORDERED: ALUMINUM/MAGNESIUM/SIMETH (MAALOX MAX) 30 ML UDC PO PRN (14:00)
--- NOTE | 2017-10-12 14:01 | History and Physical ---
History & Physical Date & Time of Service: October 12, 2017 at 13:30 Chief Complaint: Tingling Left Arm, High Bp Primary Care Physician: Sheng Sherman M.D. History of Present Illness Source: patient 76 y/o M Hx Factor V Leiden mutation - previous DVT/PE, HTN, HPL, BPH, CVA, DM II. Presents with indigestion-like CP in addition to L arm paresthesias and exertional dyspnea. The pain has been present intermittently for approximately one week. He denies diaphoresis, nausea, vomiting or lightheadedness. Initial labs are notable for an elevated trop. Considering the pt's history he was sent for a CTA, which proved negative for PE or additional acute findings. An EKG was WNL. Past Medical/Surgical History 1) CVA 2014 - received TPA - no residuals 2) HTN 3) HPL 4) Factor V Leiden mutation 5) DVT/PE 6) BPH 7) DM II Family History Cancer Diabetes mellitus Gallbladder disease Heart disease Hypertension Stroke Social History Smoking Status: Never Smoker Drug Use: none Marital Status: Occupational Status: retired Allergies Coded Allergies: Clindamycin (Verified Allergy, Intermediate, Rash, 01/19/17) Penicillins (Verified Allergy, Unknown, 01/19/17) Sulfa Antibiotics (Verified Allergy, Unknown, HIVES, 01/19/17) PER YUNIOR REYNOLDS (SHE SPOKE WITH PATIENT) Home Medications Scheduled Docusate Sodium (Docusate Sodium), 300 MG PO QPM Doxazosin Mesylate (Doxazosin Mesylate), 4 MG PO QAM Finasteride (Finasteride), 5 MG PO QPM Folic Acid (Folvite), 1 MG PO DAILY Insulin Glargine (Lantus), 25 UNITS SC QPM Insulin Lispro (Human) (Humalog), 1 DOSE SC ACHS Levothyroxine Sodium (Levothyroxine Sodium), 25 MCG PO DAILY Losartan Potassium (Cozaar), 100 MG PO QAM Lutein-Zeaxanthin (Lutein), 1 CAP PO DAILY Magnesium (Magnesium 250 mg), 250 MG PO DAILY Metoprolol Tartrate (Lopressor), 25 MG PO BID Multivitamin (Multivitamin), 1 TABLET PO DAILY Pyridoxine (Vitamin B6), 100 MG PO DAILY Silodosin (Rapaflo), 8 MG PO PM Simvastatin (Simvastatin), 40 MG PO QPM Warfarin Sodium (Warfarin Sodium), 2.5 MG PO 2XWK Warfarin Sodium (Warfarin Sodium), 5 MG PO 5XWK Scheduled PRN Nitroglycerin (Nitrostat), 0.4 MG UT UD PRN for Chest Pain Review of Systems Constitutional: No fever, No chills, No sweats Eyes: No worsening of vision ENT: No hearing loss, No unusual epistaxis, No nasal symptoms Respiratory: + dyspnea on exertion, No cough, No sputum, No wheezing Cardiovascular: + chest pain, No orthopnea, No PND Abdomen: No pain, No nausea, No vomiting Musculoskeletal: No joint pain Genitourinary - Male: No hematuria, No dysuria Neurologic: + problem reported (parasthesias L arm), No memory loss, No paralysis, No weakness Psychiatric: No depression symptoms Endocrine: No fatigue Hematologic / Lymphatic: No abnormal bleeding/bruising Integumentary: No rash Physical Exam Vital Signs Date Time Temp Pulse Resp B/P (MAP) Pulse Ox O2 Delivery O2 Flow Rate FiO2 10/12/17 12:34 71 20 141/75 96 Room Air 10/12/17 12:18 96 Room Air 10/12/17 12:18 96 Ambu-Bag 10/12/17 12:16 74 16 129/77 10/12/17 12:01 70 10/12/17 11:09 36.5 89 22 139/80 96 Room Air General Appearance: WD/WN, no apparent distress Head: normocephalic Eyes: normal inspection ENT: normal ENT inspection, pharynx normal Neck: supple, no JVD Respiratory/Chest: chest non-tender, lungs clear Cardiovascular: regular rate, rhythm, no edema Abdomen/GI: normal bowel sounds, non tender, soft Back: normal inspection Extremities/Musculoskelatal: normal inspection, no calf tenderness, normal capillary refill Neurologic/Psych: design maker II-XII nml as tested, no motor/sensory deficits, alert, oriented x 3 Skin: normal color Diagnostics Laboratory Results Results Past 24 Hours Test 10/12/17 11:55 Range/Units White Blood Count 6.45 4.8-10.8 K/uL Red Blood Count 4.34 4.7-6.1 M/uL Hemoglobin 15.0 14.0-18.0 g/dL Hematocrit 41.8 42-52 % Mean Corpuscular Volume 96.3 80-100 fL Mean Corpuscular Hemoglobin 34.6 25-34 pg Mean Corpuscular Hemoglobin Concent 35.9 32-36 g/dl Platelet Count 145 130-400 K/uL Mean Platelet Volume 9.8 7.4-10.4 fL Neutrophils (%) (Auto) 77.0 % Lymphocytes (%) (Auto) 14.9 % Monocytes (%) (Auto) 7.0 % Eosinophils (%) (Auto) 0.6 % Basophils (%) (Auto) 0.2 % Neutrophils # (Auto) 4.97 1.4-6.5 K/uL Lymphocytes # (Auto) 0.96 1.2-3.4 K/uL Monocytes # (Auto) 0.45 0.11-0.59 K/uL Eosinophils # (Auto) 0.04 0-0.5 K/uL Basophils # (Auto) 0.01 0-0.2 K/uL RDW Standard Deviation 42.3 36.4-46.3 fL RDW Coefficient of Variation 12.0 11.5-14.5 % Immature Granulocyte % (Auto) 0.3 % Immature Granulocyte # (Auto) 0.02 0.00-0.02 K/uL Prothrombin Time 18.0 9.0-12.0 SECONDS Prothromb Time International Ratio 1.7 0.9-1.1 Sodium Level 137 136-145 mmol/L Potassium Level 4.1 3.5-5.1 mmol/L Chloride Level 103 98-107 mmol/L Carbon Dioxide Level 26 21-32 mmol/L Anion Gap 8.0 3-11 mmol/L Blood Urea Nitrogen 19 7-18 mg/dl Creatinine 1.38 0.60-1.40 mg/dl Est Creatinine Clear Calc Drug Dose 50.0 ml/min Estimated GFR () 57.2 Estimated GFR (Non- 49.3 BUN/Creatinine Ratio 14.1 10-20 Random Glucose 215 70-99 mg/dl Calcium Level 8.7 8.5-10.1 mg/dl Total Bilirubin 0.8 0.2-1 mg/dl Direct Bilirubin 0.2 0-0.2 mg/dl Aspartate Amino Transf (AST/SGOT) 25 15-37 U/L Alanine Aminotransferase (ALT/SGPT) 32 12-78 U/L Alkaline Phosphatase 63 45-117 U/L Total Creatine Kinase 194 39-308 U/L Creatine Kinase MB 3.0 0.5-3.6 ng/ml Creatine Kinase MB Ratio 1.5 0-3.0 Troponin I 0.415 0-0.045 ng/ml Total Protein 7.3 6.4-8.2 gm/dl Albumin 3.8 3.4-5.0 gm/dl Lipase 153 73-393 U/L Diagnostic Radiology CTA: Mild multichamber cardiac enlargement without pericardial effusion. Three- vessel distribution of coronary arterial calcifications. Mild dilation of the ascending thoracic aorta, 4.0 x 4.0 cm. No dissection. Moderate atherosclerosis of the aorta and proximal great vessels. Mild kinking of the mid left subclavian artery causing approximately 50% luminal narrowing. No focal filling defects identified to suggest pulmonary thromboembolic disease. EKG NSR Impression Assessment and Plan 76 y/o M Hx Factor V Leiden mutation - previous DVT, HTN, HPL, BPH, CVA, DM II. Presents with indigestion-like CP in addition to L arm paresthesias and exertional dyspnea. The pain has been present intermittently for approximately one week. He denies diaphoresis, nausea, vomiting or lightheadedness. Initial labs are notable for an elevated trop. Considering the pt's history he was sent for a CTA, which proved negative for PE or additional acute findings. An EKG was WNL. 1) CP, SOB - elevated trop - INR is subtherapeutic on Coumadin - we will place pt on Heparin. An echo and card consult have been requested. ASA provided - Statin continued. NTG or Morphine PRN for CP. Cont Metoprolol. 2) Factor V mutation - placed on Heparin at present 3) DM - placed on a SS and will receive HS Lantus 4) HTN - cont Losartan, Metoprolol 5) BPH - cont Rapaflo, Finasteride Full code - Coumadin prophylaxis Total time fir this admit including review of labs, meds, imaging, EKG, records - discussion with pt and ER attending - 38 min Resuscitation Status VTE Prophylaxis Will order VTE Prophylaxis: Yes
[2017-10-12] MEDS ORDERED: IV FLUIDS COMPLETED PRN (14:30)
[2017-10-12 15:08] LABS: PTT PATIENT 32.5 SECONDS (21.0-31.0)
[2017-10-12] MEDS ORDERED: PERFLUTREN LIPID MICROSPHERE (DEFINITY) IV ONE (15:13)
[2017-10-12] MEDS ORDERED: GLUCOSE 10 TABS/TUBE PO PRN (15:15)
[2017-10-12] MEDS ORDERED: DEXTROSE 50% 50 ML SYR IV PRN (15:15)
[2017-10-12] MEDS ORDERED: GLUCAGON FOR INJ 1 MG VIAL IM PRN (15:15)
[2017-10-12] MEDS ORDERED: GLUCOSE 40% GEL 15 GM TUBE PO PRN (15:15)
[2017-10-12] MEDS ORDERED: CARBOHYDRATES FOR HYPOGLYCEMIA PO PRN (15:15)
[2017-10-12 16:07] VITALS: BP_SYST 161; BP_SYST 167; BP_DIAS 115; BP_DIAS 92; PULSE 81; TEMP 36.8; O2SAT 97; Ht 182.9 cm; Wt 85.6 kg
--- NOTE | 2017-10-12 16:16 | ECHOCARDIOGRAM REPORT ---
*NOTICE TO RECEIVING DEMOCRAT AGENCY This information is strictly Confidential and protected under [place] law. [place] law prohibits you from making any further disclosure of this information unless further disclosure is expressly permitted by the written consent of the person to whom it pertains or is authorized by law. A general authorization for the release of medical or other information is not sufficient for this purpose. Hospital accepts no responsibility if the information is made available to any other person, INCLUDING THE PATIENT. Interpretation Summary * Name: RADHA NINA Study Date: 10/12/2017 02:32 PM BP: 122/72 mmHg * Patient Location: [facility] HR: 67 * : 1940 (M/d/yyyy) Gender: Male Height: 72 in * Age: 76 yrs Ethnicity: CA Weight: 199 lb * Ordering Physician: Emil Wang * Performed By: Unique Todd RDCS * * Reason For Study: Elevated Troponin * BSA: 2.1 m2 * -- Conclusions -- * There is mild concentric left ventricular hypertrophy. * Left ventricular systolic function is normal. * Grade I diastolic dysfunction, (abnormal relaxation pattern). * Mild aortic regurgitation. * There is mild to moderate mitral regurgitation. * Right ventricular systolic pressure is normal. Procedure Details * A complete two-dimensional transthoracic echocardiogram was performed (2D, M-mode, Doppler and color flow Doppler). * The study was technically difficult. * The study was technically difficult, but visualization was adequate with the administration of Definity ultrasound contrast. * A contrast injection of Definity was performed to improve assessment of LV function. * Contrast was injected into an intravenous site in the right arm. * One vial of Definity ultrasound contrast was diluted in normal saline to a total volume of 10 ml. A total of '1' ml of solution was administered during imaging. * Lot # [id number] of Definity utilized for procedure. * Expiration date . * The attending nurse who injected the contrast agent was Yanira Villavicencio RN. Left Ventricle * The left ventricle is normal in size. * There is mild concentric left ventricular hypertrophy. * Ejection Fraction = 55-60%. * Left ventricular systolic function is normal. * Grade I diastolic dysfunction, (abnormal relaxation pattern). * MIld basal inferior hypokinesis Right Ventricle * The right ventricle is normal in size and function. * The right ventricular systolic function is normal as assessed by tricuspid annular plane systolic excursion (TAPSE) (normal >1.5 cm). Atria * The left atrial size is normal. * Right atrial size is normal. Mitral Valve * The mitral valve is grossly normal. * There is mild to moderate mitral regurgitation. Tricuspid Valve * The tricuspid valve is not well visualized, but is grossly normal. * There is mild tricuspid regurgitation. * Right ventricular systolic pressure is normal. Aortic Valve * The aortic valve is normal in structure and function. * No hemodynamically significant valvular aortic stenosis. * Mild aortic regurgitation. Pulmonic Valve * The pulmonic valve is not well visualized. Great Vessels * The aortic root is normal size. Pericardium/Pleural * There is no pericardial effusion. Great Vessels * Normal inferior vena cava diameter and respiratory variation suggests normal central venous pressure. MMode 2D Measurements and Calculations IVSd 1.3 cm IVSs 1.7 cm LVIDd 4.7 cm LVIDs 3.2 cm LVPWd 1.3 cm LVPWs 1.6 cm IVS/LVPW 1.0 FS 31.1 % EDV(Teich) 103.0 ml ESV(Teich) 42.5 ml EF(Teich) 58.8 % EDV(cubed) 104.7 ml ESV(cubed) 34.3 ml EF(cubed) 67.2 % % IVS thick 30.0 % % LVPW thick 23.9 % LV mass(C)d 243.3 grams LV mass(C)dI 114.5 grams/m\S\2 LV mass(C)s 210.5 grams LV mass(C)sI 99.0 grams/m\S\2 SV(Teich) 60.5 ml SI(Teich) 28.5 ml/m\S\2 SV(cubed) 70.4 ml SI(cubed) 33.1 ml/m\S\2 Ao root diam 3.5 cm Ao root area 9.8 cm\S\2 ACS 1.6 cm LA dimension 3.1 cm LA/Ao 0.87 LVAd ap4 36.5 cm\S\2 LVLd ap4 9.0 cm EDV(MOD-sp4) 117.9 ml EDV(sp4-el) 124.9 ml LVAs ap4 20.4 cm\S\2 LVLs ap4 7.8 cm ESV(MOD-sp4) 45.9 ml ESV(sp4-el) 45.4 ml EF(MOD-sp4) 61.0 % EF(sp4-el) 63.7 % LVAd ap2 34.4 cm\S\2 LVLd ap2 8.9 cm EDV(MOD-sp2) 114.7 ml EDV(sp2-el) 112.0 ml LVAs ap2 17.2 cm\S\2 LVLs ap2 7.1 cm ESV(MOD-sp2) 37.5 ml ESV(sp2-el) 35.6 ml EF(MOD-sp2) 67.3 % EF(sp2-el) 68.2 % LVLd %diff -0.93 % EDV(MOD-bp) 116.4 ml LVLs %diff -9.94 % ESV(MOD-bp) 43.1 ml EF(MOD-bp) 63.0 % SV(MOD-sp4) 72.0 ml SI(MOD-sp4) 33.8 ml/m\S\2 SV(MOD-sp2) 77.2 ml SI(MOD-sp2) 36.3 ml/m\S\2 SV(MOD-bp) 73.3 ml SI(MOD-bp) 34.5 ml/m\S\2 SV(sp4-el) 79.5 ml SI(sp4-el) 37.4 ml/m\S\2 SV(sp2-el) 76.4 ml SI(sp2-el) 35.9 ml/m\S\2 Doppler Measurements and Calculations MV E max chelsy 75.7 cm/sec MV A max chelsy 102.3 cm/sec MV E/A 0.74 MV dec time 0.21 sec Ao V2 max 118.3 cm/sec Ao max PG 5.6 mmHg Ao max PG (full) 2.6 mmHg AI max chelsy 383.5 cm/sec AI max PG 58.9 mmHg AI dec slope 199.9 cm/sec\S\2 AI P1/2t 562.0 msec LV V1 max PG 3.0 mmHg LV V1 max 87.0 cm/sec MR max chelsy 533.8 cm/sec MR max PG 114.3 mmHg MR mean chelsy 383.8 cm/sec MR mean PG 68.0 mmHg MR VTI 204.3 cm PA V2 max 73.3 cm/sec PA max PG 2.2 mmHg PI max chelsy 162.2 cm/sec PI max PG 10.7 mmHg PI dec slope 165.2 cm/sec\S\2 PI P1/2t 287.7 msec TR max chelsy 221.3 cm/sec
[2017-10-12] MEDS ORDERED: SODIUM CHLORIDE 0.9% 1000ML 1,000 ML IV SCH (17:00)
[2017-10-12] MEDS ORDERED: INSULIN ASPART 100 UNITS/ML 3 ML PEN SC SCH (18:00)
[2017-10-12] MEDS: HEPARIN 25,000 UNIT/500ML D5W 500 ML IV SCH (18:02)
[2017-10-12 18:50] VITALS: BP 157/79; PULSE 76; TEMP 36.8; O2SAT 96
[2017-10-12] MEDS: DOCUSATE SODIUM 100 MG CAP PO SCH (20:03)
[2017-10-12] MEDS: FINASTERIDE 5 MG TAB PO SCH (20:03)
[2017-10-12] MEDS ORDERED: NURSING VERBAL MED ORDER ONE (20:15)
[2017-10-12] MEDS ORDERED: SIMVASTATIN 40 MG TAB PO SCH (21:00)
[2017-10-12] MEDS ORDERED: METOPROLOL TARTRATE 25 MG TAB PO SCH (21:00)
[2017-10-12] MEDS: INSULIN ASPART 100 UNITS/ML 3 ML PEN SC SCH (21:00)
[2017-10-12] MEDS: INSULIN GLARGINE SOLOSTAR 100 UNITS/ML 3 ML PEN SC SCH (21:59)
[2017-10-12 23:15] VITALS: BP 158/80; PULSE 69; TEMP 36.9; O2SAT 94
[2017-10-13] VITALS (14 sets, daily range): BP systolic 134–173; BP diastolic 69–100; PULSE 65–84; TEMP 36.3–37.6; O2SAT 92–97
[2017-10-13 00:44] LABS: PTT PATIENT 78.8 SECONDS (21.0-31.0)
[2017-10-13] MEDS: HEPARIN 25,000 UNIT/500ML D5W 500 ML IV SCH ×3 (01:00→11:33)
[2017-10-13] MEDS: LEVOTHYROXINE 25 MCG TAB PO SCH (05:51)
[2017-10-13] MEDS: INSULIN ASPART 100 UNITS/ML 3 ML PEN SC SCH ×4 (07:00→20:47)
[2017-10-13 07:40] LABS: PTT PATIENT 93.5 SECONDS (21.0-31.0)
--- NOTE | 2017-10-13 07:57 | Cardiology Consultation ---
Cardiology Consultation Date of Consultation: October 13, 2017. Requesting Physician: Dr. Wang Reason for Consultation: NSTEMI Pt evaluation today including: conversation w/ patient, physical exam, chart review, lab review, review of studies, review of inpatient medication list, conversation w/ attending History of Present Illness Mr. Cagle is a pleasant 76-year-old gentleman with a history significant for type 1 diabetes, hypertension, dyslipidemia, presumed CAD based on prior nuclear perfusion studies. He also has a history of stroke (2014) and sleep apnea on BiPAP. In December of 2015, he had DVT and extensive pulmonary emboli and was diagnosed with factor V Leiden and anticardiolipin antibody. He is now on lifelong anticoagulation therapy. He was diagnosed by Dr. Harrell with presumed CAD based on abnormal nuclear studies in the past, , although 2014 myocardial perfusion study suggested attenuation artifact. He has had the following studies/procedures: 1. Nuclear stress 08/20/2014: No evidence of infarct or ischemia. Small inferior defect consistent with diaphragmatic attenuation. EF 65%. Normal wall motion. 2. Echo 02/20/2015: Normal LV systolic function and wall motion. EF 65-70%. Mild AI. Negative bubble study. 3. Carotid duplex 02/19/2015: No significant stenosis. 4. CT angiogram neck 02/19/2015: Left vertebral artery 50% proximally and distally due to mass effect from facet hypertrophy. Mild to moderate calcified plaque within bilateral carotid bifurcations. 5. Event monitor 03/05/2015 to 03/13/2015: Sinus rhythm. PACs. PVC. Short nonsustained atrial run. No symptoms reported. 6. CTA 12/15/2015: Extensive bilateral pulmonary emboli. 7. Echo 12/16/2015: Normal LV size and systolic function. EF 65-70%. No wall motion abnormalities. Mild LVH. Type 1 diastolic dysfunction. Sclerotic aortic valve with trace AI. RVSP 38 He was hospitalized yesterday with chest discomfort and shortness of breath. He states that intermittently for the past several days or weeks he has been having a minor chest discomfort which he considered to be indigestion. Three days ago however symptoms worsen. While laying in bed on Wednesday night he developed left arm pain with minor substernal chest pressure. There was no associated shortness of breath, diaphoresis, or other radiation of the pain. He is unsure how long it lasted but potentially for hours. Then yesterday, while walking up a steep driveway for [employer] he was significantly dyspneic upon exertion. This was much more significant dyspnea that he has had, which was alarming to him. He also had minor chest discomfort once again with left arm pain. He believes he continued to have left arm pain was was evaluated in the emergency department but has since resolved. He is currently free of left arm pain, chest pain, or shortness of breath. He denies orthopnea, shortness of breath at rest, syncope, near-syncope, palpitations, or edema. He denies melena, hematochezia, hematuria, or other bleeding. He admits that he missed a dose of Coumadin over the weekend accidentally, which is not usual for him. He denies recent fevers, chills, nausea, vomiting, abdominal pain, or other symptom. He is currently asymptomatic. He is NPO since 10:00 p.m.. Review of systems: As above in review of systems otherwise negative/ unremarkable. Past Medical/Surgical History 1. Presumed CAD/atherosclerotic disease based on history of abnormal nuclear perfusion study. More recent studies were unremarkable. 2. Hypertension 3. Dyslipidemia 4. Type 1 diabetes 5. Stroke 2014 6. Sleep apnea on BiPAP 7. Factor 5 Leiden and anticardiolipin antibody 8. DVT and extensive pulmonary emboli December of 2015 9. Chronic anticoagulation therapy 10. Diabetic nephropathy 11. Diabetic retinopathy 12. Diabetic nephropathy 13. Esophageal reflux 14. CKD 15. Vitamin-D deficiency 16. Gout 17. Hypothyroidism Family History Cancer Diabetes mellitus Gallbladder disease Heart disease Hypertension Stroke Brother had MN at the age of 60. Son had MN at the age of 44. Social History Denies smoking. Approximately 2 alcoholic beverages per day. No drugs. 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 . Two children. He was unaccompanied at the bedside during our visit today. All Other Systems: Reviewed and Negative Allergies Coded Allergies: Clindamycin (Verified Allergy, Intermediate, Rash, 10/12/17) Penicillins (Verified Allergy, Unknown, 10/12/17) Sulfa Antibiotics (Verified Allergy, Unknown, HIVES, 10/12/17) PER YUNIOR REYNOLDS (SHE SPOKE WITH PATIENT) Medications Current Inpatient Medications Medications (Trade) Dose Ordered Sig/Yadi Route Start Time Stop Time Status Last Admin Dose Admin Ioversol (Optiray 320) 125 ml UD PRN IV 10/12/17 12:30 10/16/17 12:29 Docusate Sodium (coLACE CAP) 300 mg QPM PO 10/12/17 21:00 11/11/17 20:59 10/12/17 20:03 300 MG Doxazosin Mesylate (Cardura Tab) 4 mg QAM PO 10/13/17 09:00 11/12/17 08:59 Finasteride (Proscar Tab) 5 mg QPM PO 10/12/17 21:00 11/11/17 20:59 10/12/17 20:03 5 MG Folic Acid (Folvite Tab) 1 mg DAILY PO 10/13/17 09:00 11/12/17 08:59 Insulin Glargine (Lantus Solostar Pen) 25 units QPM SC 10/12/17 21:00 11/11/17 20:59 10/12/17 21:59 25 UNITS Levothyroxine Sodium (Synthroid Tab) 25 mcg DAILYBB PO 10/13/17 06:00 11/12/17 06:59 10/13/17 05:51 25 MCG Losartan Potassium (coZAAR TAB) 100 mg QAM PO 10/13/17 09:00 11/12/17 08:59 Metoprolol Tartrate (Lopressor Tab) 25 mg BID PO 10/12/17 21:00 11/11/17 20:59 10/12/17 20:03 25 MG Pyridoxine HCl (Vitamin B-6 Tab) 100 mg DAILY PO 10/13/17 09:00 11/12/17 08:59 Simvastatin (Zocor Tab) 40 mg QPM PO 10/12/17 21:00 11/11/17 20:59 10/12/17 20:03 40 MG Magnesium Oxide (Mag-Ox Tab) 200 mg DAILY PO 10/13/17 09:00 11/12/17 08:59 Miscellaneous Information (Order Awaiting Action) 1 ea QS N/A 10/12/17 16:00 11/11/17 15:59 Acetaminophen (Tylenol Tab) 650 mg Q4H PRN PO 10/12/17 14:00 11/11/17 13:59 Al Hydrox/Mg Hydrox/Simethicone (Maalox Max Susp) 15 ml Q4H PRN PO 10/12/17 14:00 11/11/17 13:59 Magnesium Hydroxide (Milk Of Magnesia Susp) 30 ml Q12H PRN PO 10/12/17 14:00 11/11/17 13:59 Ondansetron HCl (Zofran Inj) 4 mg Q6H PRN IV 10/12/17 14:00 11/11/17 13:59 Nitroglycerin (Nitrostat Tab) 0.4 mg UD PRN SL 10/12/17 14:00 11/11/17 13:59 Morphine Sulfate (MoRPHine SULFATE INJ) 2 mg Q30M PRN IV 10/12/17 14:00 10/26/17 13:59 Aspirin (Ecotrin Tab) 81 mg QAM PO 10/13/17 09:00 11/12/17 08:59 Polyethylene (Miralax Powder Packet) 17 gm DAILY PRN PO 10/12/17 14:00 11/11/17 13:59 Miscellaneous (Iv Fluids Completed) 1 ea PRN PRN N/A 10/12/17 14:30 10/12/18 14:29 Glucose (Glucose 40% Gel) 15-30 GRAMS 15 GRAMS... UD PRN PO 10/12/17 15:15 11/11/17 15:14 Glucose (Glucose Chew Tab) 4-8 Tablets 4 Tabl... UD PRN PO 10/12/17 15:15 11/11/17 15:14 Dextrose (Dextrose 50% 50ML Syringe) 25-50ML 25ML FOR ... UD PRN IV 10/12/17 15:15 11/11/17 15:14 Glucagon (Glucagon Inj) 1 mg UD PRN IM 10/12/17 15:15 11/11/17 15:14 Carbohydrates (Carbohydrates For Hypoglycemia) 15-30 GRAMS 15 grams if BSG 54-69... UD PRN PO 10/12/17 15:15 11/11/17 15:14 Heparin Sodium/ Dextrose 500 ml @ 27 mls/hr [id number] IV 10/12/17 17:15 11/11/17 17:14 10/13/17 01:00 27 MLS/HR Insulin Aspart (novoLOG ASPART) SLIDING SCALE G... ACHS SC 10/12/17 21:00 11/11/17 20:59 Physical Exam Vital Signs Past 12 Hours Date Time Temp Pulse Resp B/P (MAP) Pulse Ox O2 Delivery O2 Flow Rate FiO2 10/13/17 07:08 36.6 75 16 168/91 (116) 94 Room Air 10/13/17 04:00 Room Air 10/13/17 03:45 36.6 76 16 160/93 (115) 94 Room Air 10/12/17 23:59 Room Air 10/12/17 23:15 36.9 69 16 158/80 (106) 94 Room Air 10/12/17 20:01 Room Air Gen.: No acute distress. Alert and oriented. HEENT: Anicteric sclera. Neck: No JVD. No bruits. Normal carotid upstrokes bilaterally. Cardiac: PMI was nondisplaced. No ventricular heave. Regular rate and rhythm. Normal S1-S2. No murmurs, rubs, or gallops. Pulmonary: Initially, bibasilar crackles that cleared after coughing. Otherwise clear. Abdomen: Soft, nontender, nondistended, with normoactive bowel sounds. No bruits noted. Extremities: 2+ radial pulses bilaterally; Allens's ok. 2+ femoral pulses bilaterally; no bruit. 2+ posterior tibialis pulses bilaterally. No edema or cyanosis. No palpable cords. Psychiatric: Affect appears appropriate. Data Laboratory Results: Last 24 Hours Test 10/12/17 11:55 10/12/17 16:16 10/12/17 17:02 10/12/17 18:10 White Blood Count 6.45 K/uL Red Blood Count 4.34 M/uL Hemoglobin 15.0 g/dL Hematocrit 41.8 % Mean Corpuscular Volume 96.3 fL Mean Corpuscular Hemoglobin 34.6 pg Mean Corpuscular Hemoglobin Concent 35.9 g/dl Platelet Count 145 K/uL Mean Platelet Volume 9.8 fL Neutrophils (%) (Auto) 77.0 % Lymphocytes (%) (Auto) 14.9 % Monocytes (%) (Auto) 7.0 % Eosinophils (%) (Auto) 0.6 % Basophils (%) (Auto) 0.2 % Neutrophils # (Auto) 4.97 K/uL Lymphocytes # (Auto) 0.96 K/uL Monocytes # (Auto) 0.45 K/uL Eosinophils # (Auto) 0.04 K/uL Basophils # (Auto) 0.01 K/uL RDW Standard Deviation 42.3 fL RDW Coefficient of Variation 12.0 % Immature Granulocyte % (Auto) 0.3 % Immature Granulocyte # (Auto) 0.02 K/uL Prothrombin Time 18.0 SECONDS Prothromb Time International Ratio 1.7 Activated Partial Thromboplast Time 32.5 SECONDS Partial Thromboplastin Ratio 1.3 Sodium Level 137 mmol/L Potassium Level 4.1 mmol/L Chloride Level 103 mmol/L Carbon Dioxide Level 26 mmol/L Anion Gap 8.0 mmol/L Blood Urea Nitrogen 19 mg/dl Creatinine 1.38 mg/dl Est Creatinine Clear Calc Drug Dose 50.0 ml/min Estimated GFR () 57.2 Estimated GFR (Non- 49.3 BUN/Creatinine Ratio 14.1 Random Glucose 215 mg/dl Calcium Level 8.7 mg/dl Total Bilirubin 0.8 mg/dl Direct Bilirubin 0.2 mg/dl Aspartate Amino Transf (AST/SGOT) 25 U/L Alanine Aminotransferase (ALT/SGPT) 32 U/L Alkaline Phosphatase 63 U/L Total Creatine Kinase 194 U/L Creatine Kinase MB 3.0 ng/ml Creatine Kinase MB Ratio 1.5 Troponin I 0.415 ng/ml 0.852 ng/ml Total Protein 7.3 gm/dl Albumin 3.8 gm/dl Lipase 153 U/L Bedside Glucose 122 mg/dl 168 mg/dl Test 10/12/17 20:28 10/12/17 22:59 10/13/17 00:10 10/13/17 07:04 Bedside Glucose 136 mg/dl Troponin I 0.932 ng/ml Activated Partial Thromboplast Time 78.8 SECONDS Partial Thromboplastin Ratio 3.0 Telemetry personally reviewed. No arrhythmia. Echo 10/12/2017 reported: Normal LV systolic function. EF 55-60%. Mild basal inferior hypokinesis. Type 1 diastolic dysfunction. Mild AI. Mild to moderate MR. ECGs personally reviewed. ECG 10/12/2017 at 11:16 a.m.: Sinus rhythm [address]/T-wave abnormality. ECG 10/12/2017 12:40 p.m.: Sinus rhythm 70 bpm. Nonspecific T-wave abnormality. CTA chest 10/12/2017: Ascending thoracic aorta dilated 4 x 4 cm. No thoracic aortic dissection. No evidence of pulmonary thromboembolic disease per Radiology. Assessment & Plan ASSESSMENT/PLAN: 1. NSTEMI: Presented with symptoms concerning for unstable angina including rest pain 3 days ago. Elevated troponins. We discussed the diagnosis. Coronary angiography was recommended. Risks and benefits were discussed with him in detail. He was made aware that CT surgery is not available at this facility. He is agreeable to undergo coronary angiography, and PCI, if deemed appropriate, at [facility]. There is no emergent indication as he is currently asymptomatic. Continue heparin drip. Continue anti-platelet therapy. Continue beta-kristin. Recommend high-intensity statin therapy. 2. Hypertension: Blood pressure elevated. Increase metoprolol to 50 mg twice daily. 3. Dyslipidemia: Recommend high-intensity statin therapy in place of simvastatin. He was agreeable. Will start atorvastatin. 4. Chronic anticoagulation therapy: He is chronically on Coumadin for extensive PE and DVT as per his PCP for factor 5 Leiden and anticardiolipin antibody. Can resume Coumadin. 5. Disposition: Coronary angiography is pending. Patient care has been discussed with Dr. العراقي of the primary hospitalist service. Cardiology will continue to follow. Highly complex medical issues. Thank you for allowing me to participate in the care of your patient. Please call for any other questions or concerns. Sincerely, Patel Castillo M.D.
[2017-10-13] MEDS ORDERED: WARFARIN SOD 5 MG TAB PO SCH (09:00)
[2017-10-13] MEDS: PYRIDOXINE HCL 50 MG TAB PO SCH (09:12)
[2017-10-13] MEDS: METOPROLOL TARTRATE 50 MG TAB PO SCH ×2 (09:12→20:43)
[2017-10-13] MEDS: DOXAZosin MESYLATE TAB 4 MG TAB PO SCH (09:13)
[2017-10-13] MEDS: ASPIRIN 81 MG ECTAB PO SCH (09:13)
[2017-10-13] MEDS: LOSARTAN POTASSIUM 50 MG TAB PO SCH (09:13)
[2017-10-13] MEDS: MAGNESIUM OXIDE 400 MG TAB PO SCH (09:14)
--- NOTE | 2017-10-13 12:23 | Progress Note ---
Subjective Date of Service: October 13, 2017. Subjective Pt evaluation today including: conversation w/ patient, conversation w/ family , physical exam, chart review, lab review, review of studies, conversation w/ home sales consultant, review of inpatient medication list Doing fair, no chest pain, Problem List Medical Problems: (1) Back pain Status: Acute (2) Bilateral pulmonary embolism Status: Acute (3) Deep vein thrombosis Status: Acute (4) Deep vein thrombosis (DVT) Status: Acute (5) Encounter for removal of sutures Status: Acute (6) Substernal precordial chest pain Status: Acute (7) Subtherapeutic anticoagulation Status: Acute (8) Toe laceration Status: Acute Review of Systems Constitutional: No fever, No chills, No sweats, No weight loss, No weakness, No fatigue, No problem reported Eyes: No worsening of vision, No eye pain, No redness, No discharge, No diplopia ENT: No hearing loss, No unusual epistaxis, No nasal symptoms, No sore throat, No tinnitus, No dental problems, No trouble swallowing Respiratory: No cough, No sputum, No wheezing, No shortness of breath, No dyspnea on exertion, No dyspnea at rest, No hemoptysis Cardiac: No chest pain, No orthopnea, No PND, No edema, No claudication, No palpitations Abdomen: No pain, No nausea, No vomiting, No diarrhea, No constipation Musculoskeletal: No joint pain, No muscle pain, No swelling, No calf pain Male : No dysuria, No urinary frequency, No incontinence, No nocturia more than once/night, No slowing stream, No hematuria Neurologic: No memory loss, No paralysis, No weakness, No numbness/tingling, No vertigo, No balance problems Psychiatric: No depression symptoms, No anhedonism, No anxiety, No insomnia, No substance abuse Heme: No abnormal bleeding/bruising, No clotting problems, No swollen lymph nodes, No night sweats Endo: No fatigue, No excessive thirst, No excessive urination Skin: No rash, No itch, No new/changing skin lesions, No color change, No bleeding Objective Vital Signs Date Time Temp Pulse Resp B/P (MAP) Pulse Ox O2 Delivery O2 Flow Rate FiO2 10/13/17 11:01 36.5 65 20 153/95 (114) 96 Room Air 10/13/17 09:06 83 16 165/95 (118) 95 Room Air 10/13/17 08:00 Room Air 10/13/17 07:08 36.6 75 16 168/91 (116) 94 Room Air 10/13/17 04:00 Room Air 10/13/17 03:45 36.6 76 16 160/93 (115) 94 Room Air 10/12/17 23:59 Room Air 10/12/17 23:15 36.9 69 16 158/80 (106) 94 Room Air 10/12/17 20:01 Room Air 10/12/17 18:50 36.8 76 18 157/79 (105) 96 Room Air 10/12/17 16:07 36.8 81 18 161/92 97 Room Air 167/115 10/12/17 15:54 36.5 67 16 122/72 96 10/12/17 14:30 67 16 122/72 10/12/17 13:31 66 16 136/87 10/12/17 12:34 71 20 141/75 96 Room Air Physical Exam General Appearance: WD/WN, no apparent distress Eyes: normal inspection, PERRL, EOMI, sclerae normal ENT: normal ENT inspection, hearing grossly normal, pharynx normal Neck: supple, no adenopathy, thyroid normal, no JVD, no carotid bruits, trachea midline Respiratory/Chest: chest non-tender, lungs clear, normal breath sounds, no respiratory distress, no accessory muscle use Cardiovascular: regular rate, rhythm, no edema, no gallop, no JVD, no murmur Abdomen: normal bowel sounds, non tender, soft, no organomegaly, no pulsatile mass Extremities: normal range of motion, non-tender, normal inspection, no pedal edema, no calf tenderness, normal capillary refill, pelvis stable Neurologic/Psychiatric: facilities painter II-XII nml as tested, no motor/sensory deficits, alert, normal mood/affect, oriented x 3 Skin: normal color, warm/dry, no rash Lymphatic: no adenopathy Laboratory Results Last 24 Hours Test 10/12/17 16:16 10/12/17 17:02 10/12/17 18:10 10/12/17 20:28 Bedside Glucose 122 mg/dl 168 mg/dl 136 mg/dl Troponin I 0.852 ng/ml Test 10/12/17 22:59 10/13/17 00:10 10/13/17 07:04 10/13/17 07:19 Troponin I 0.932 ng/ml 0.726 ng/ml Activated Partial Thromboplast Time 78.8 SECONDS 93.5 SECONDS Partial Thromboplastin Ratio 3.0 3.6 Bedside Glucose 115 mg/dl Test 10/13/17 11:16 Bedside Glucose 121 mg/dl Assessment and Plan 76 y/o M admitted on October 12, 2017 because of non-STEMI with indigestion-like CP Past medical Hx Factor V Leiden mutation - previous DVT, HTN, HPL, BPH, CVA, DM II Possible non-STEMI with CP, SOB Associated with elevated trop INR is subtherapeutic on Coumadin Continue heparin drip, continue ASA, beta kristin, statin continued Cardiology input appreciated, planning cardiac cath PCI History of factor V mutation Type II diabetic, DM , check HbA1c, continue sliding scale at home dose of Lantus Accelerated hypertension: cont Losartan, Metoprolol BPH: cont Rapaflo, Finasteride GI DVT prophylaxis covered, Full code - Coumadin prophylaxis Continued [facility] stay due to: multiple IV medications needed Discharge planning: home
[2017-10-13] MEDS ORDERED: LIDOCAINE HCL 1% 20 ML VIAL ONE (13:10)
[2017-10-13] MEDS ORDERED: MIDAZOLAM HCL 1 MG/ML 2ML VIAL ONE (13:10)
[2017-10-13] MEDS ORDERED: FENTANYL CITRATE INJ 50 MCG/1 ML 2 ML VIAL ONE (13:10)
[2017-10-13] MEDS ORDERED: NiCARDipine HCL INJ 2.5 MG/ML 10 ML AMP ONE (13:10)
[2017-10-13] MEDS ORDERED: HEPARIN SOD (PORCINE) 1000 UNIT/ML 10 ML VIAL ONE (13:10)
[2017-10-13] MEDS ORDERED: NITROGLYCERIN/D5W 100MCG/ML 20ML SYR ONE (13:11)
--- NOTE | 2017-10-13 14:45 | Pre Sedation Assessment ---
Pre Sedation Assessment General Date of Sedation: October 13, 2017. Vital Signs Past 12 Hours Date Time Temp Pulse Resp B/P (MAP) Pulse Ox O2 Delivery O2 Flow Rate FiO2 10/13/17 14:39 69 16 121/65 (83) 99 Mask 3 10/13/17 11:01 36.5 65 20 153/95 (114) 96 Room Air 10/13/17 09:06 83 16 165/95 (118) 95 Room Air 10/13/17 08:00 Room Air 10/13/17 07:08 36.6 75 16 168/91 (116) 94 Room Air 10/13/17 04:00 Room Air 10/13/17 03:45 36.6 76 16 160/93 (115) 94 Room Air Review Cardiovascular: regular rate, rhythm, no edema Lungs: chest non-tender, lungs clear Pre-Sedation Airway Assessment Hx of Sleep Apnea: Yes Hx of difficult intubation: No Short Thick Neck: No Oral Cavity: WNL Mallampati Classification: Class II ASA Classification: Class III NPO Status Date of Last Intake of Fluids: October 13, 2017 Time of Last Intake of Fluids: 0700 Date of Last Intake of Solids: October 12, 2017 Time of Last Intake of Solids: 2359 Procedure Planning Contraindications for Sedation: None Current Medications Reviewed: Yes Notes The planned sedation has been discussed with the patient. Informed Consent was obtained. I have identified the patient, determined the appropriateness of sedation and have assessed the patient immediately prior to the procedure. All medicine(s) and interventions are by my order.
--- NOTE | 2017-10-13 14:46 | Post Sedation Assessment ---
Post Sedation Assessment General Date of Sedation October 13, 2017. Vital Signs: Vital Signs Past 12 Hours Date Time Temp Pulse Resp B/P (MAP) Pulse Ox O2 Delivery O2 Flow Rate FiO2 10/13/17 14:39 69 16 121/65 (83) 99 Mask 3 10/13/17 11:01 36.5 65 20 153/95 (114) 96 Room Air 10/13/17 09:06 83 16 165/95 (118) 95 Room Air 10/13/17 08:00 Room Air 10/13/17 07:08 36.6 75 16 168/91 (116) 94 Room Air 10/13/17 04:00 Room Air 10/13/17 03:45 36.6 76 16 160/93 (115) 94 Room Air Post Procedure Recovery Score Activity: (2) Moves 4 extremities * Respiration: (2) Deep breath/cough Circulation: (2) +/-20% PreAnes Value Consciousness: (2) Fully Awake Oxygen Saturation: (1) O2 needed for >90% Post Anesthesia Score: 9 Discharge Sedation Level of Care: Fast Track Phase II Post Sedation Plan On clinical assessment, the patient appears to have tolerated the sedation without complications. Patient is recovering as anticipated. Patient will continue to be monitored by nursing and may be discharged when sedation discharge criteria are met per below protocol. Upon Completions of procedure and additional 15 minutes continue every 5 minute vital signs and the P.A.R. score; then discharge to a Phase I or Fast Track to Phase II per the following guidelines: * Discharge Patient to appropriate Phase II area if PAR is 8 or greater or return to pre- procedure baseline. The post - procedure orders will be as directed. * If PAR score is less than 8 or not return to pre-procedure baseline then patient will follow Phase I monitoring till PAR is reached for Phase II. The Phase I may be done in procedure room or may call to secure a Phase I area. * If naloxone or flumazenil are used for reversal, hold in Phase I for an additional 60 -120 minutes before discharge to Phase II. Please call the Sedation Physician to re-evaluate and complete post-note for discharge to Phase II area. Do NOT discharge from procedure sedation or Phase 1 until post- sedation evaluation note is complete by procedure /sedation MD Sedation Discharge Instructions to be given to the patient at discharge to home.
[2017-10-13] MEDS ORDERED: CLOPIDOGREL BISULFATE 300 MG TAB PO ONE (14:47)
--- NOTE | 2017-10-13 14:49 | [facility] Post Operative Brief Note ---
Preliminary Procedure Note Procedure Date October 13, 2017. Pre-Procedure Diagnosis Non STEMI AUC Score 8 Post-Procedure Diagnosis Severe CAD, Successful PCI, Normal Intracardiac Pressures Procedure(s) Performed Coronary Angiography, Left Heart Cath, Drug Eluting Stent Safety Net Maker [place]ordo Bath Attendant(s) Rudi Estimated Blood Loss 15 Medication(s) Clopidogrel, Fentanyl, Heparin, Nicardipine, Nitroglycerin, Versed, Lidocaine 1% Preliminary Findings 95% proximal RCA stenosis Successful PCI of proximal to mid RCA with single ERIC Recommendations PCI without planned CABG Specimens None Anesthesia Moderate Procedural Complication(s) None Disposition PCU
[2017-10-13] MEDS ORDERED: SODIUM CHLORIDE 0.9% 1000ML 1,000 ML IV SCH (15:00)
--- NOTE | 2017-10-13 15:17 | Cardiac Catheterization ---
Procedure Note Procedure Date October 13, 2017. Pre-Procedure Diagnosis Non STEMI AUC Score 8 Post-Procedure Diagnosis Severe CAD, Successful PCI, Normal Intracardiac Pressures Procedure(s) Performed Coronary Angiography, Left Heart Cath, Drug Eluting Stent Car Rental Agent vladimir Labor Relations Analyst(s) shah Estimated Blood Loss 15 Medication(s) Clopidogrel, Fentanyl, Heparin, Nicardipine, Nitroglycerin, Versed, Lidocaine 1% Summary of Findings Indication: High-risk NSTEMI Access: 6Fr right radial artery Catheters: [place]; JR4 guide, AR1 guide with guideliner Findings: LM - short, heavily calcified with mild diffuse disease LAD - heavily calcified proximal to mid segment with 30-40% diffuse disease; small mid to distal vessel tortuous with luminal regularities as tapers to apex - gives off to small to moderate caliber diagonals with luminal irregularities Circumflex - small caliber vessel, 30% proximal disease; gives off 1 small obtuse marginal with focal 90% proximal stenosis RCA - large caliber, dominant vessel, moderately calcified. 95% focal hazy stenosis late-proximal focal stenosis; 20-30% mid segment disease; 30-40% focal distal disease; PLBs with luminal irregularities LVEDP - 15 -- PCI -- Antithrombotic therapy: Heparin, Clopidogrel Procedure: RCA cannulated with AR1 guide Whisper wire passed across lesion into distal vessel Balloon delivered past lesion with aid of guideliner, stenosis predilated with 2.5 compliant balloon Dilated lesion stented with 3.5 x 18 Diaz ERIC Stent post-dilated with 3.75 noncompliant balloon IC vasodilators administered for spasm Post procedure NICOLE 3 flow, stent well expanded with minimal residual stenosis and no apparent cardiac complications. Arterial Closure: TR Band Summary: 1. Severe single vessel coronary artery disease - 95% calcified proximal RCA 2. Normal intracardiac filling pressure 3. Successful PCI of proximal LAD with single drug-eluting stent (3.5 x 18 Diaz ; post dilated with 3.75 NC). Recommendations: To PCU for continued monitoring Loaded with clopidogrel 600 milligrams in operations label clerk Plan to continue on triple therapy with aspirin, clopidogrel, Coumadin for 1 month then likely transition to dual therapy with Plavix/Coumadin for at least 1 year Continue statin, and ASCVD risk factor modification Consult cardiac Rehab Hemodynamics Rest Ao: 114/46/76 Final Ao: 118/57/84 LV: 114/15 Recommendations PCI without planned CABG Specimens None Radiation Exposure (mGy) 3690 Contrast (mls) 130 Fluids (cc crystalloids) 130 Drains None Anesthesia Moderate Procedural Complication(s) None Disposition PCU ACC Data Cardiac Status Clinical evaluation leading to the procedure CAD Presntation: Non STEMI Anginal Classification: CCS IV Heart Failure: No, NYHA Class: CCS I Cardiogenic Shock w/in 24Hrs: No Cardiac Arrest w/in 24Hrs: No Imaging studies past 6 months: Yes Stress studies past 6 months: No Closure Device Percutaneous Entry Location: Radial Closure Device: Radial Band Recommendations: PCI without planned CABG PCI Indication: PCI for high risk Non-STEMI Lesion Segment Name: Proximal RCA Culprit Artery: Yes Stenosis Prior to Rx (%): 95 Chronic Total Occlusion: No IVUS: No FFR: No Pre-Procedure NICOLE Flow: 3 Previously Treated Lesion: No Lesion Complexity: Non-High/Non-C Lesion Length (mm): 12 Thrombus Present: Yes Bifurcation Lesion: No Guidewire Across Lesion: Yes Guidewire: Stenosis Post-Procedure (%): 0 Post-Procedure NICOLE Flow: 3 Device(s) Deployed: Yes Intraprocedure Events Significant Dissection: No Perforation: No
[2017-10-13 16:59] LABS: PTT PATIENT > 300.0 SECONDS (21.0-31.0)
[2017-10-13] MEDS: ATORVASTATIN 40 MG TAB PO SCH (20:42)
[2017-10-13] MEDS: DOCUSATE SODIUM 100 MG CAP PO SCH (20:42)
[2017-10-13] MEDS: FINASTERIDE 5 MG TAB PO SCH (20:43)
[2017-10-13] MEDS: SILODOSIN 8 MG CAP PO SCH (20:43)
[2017-10-13] MEDS: INSULIN GLARGINE SOLOSTAR 100 UNITS/ML 3 ML PEN SC SCH (20:47)
[2017-10-14] VITALS (8 sets, daily range): BP systolic 145–169; BP diastolic 84–98; PULSE 71–82; TEMP 36.6–37.2; O2SAT 95–97
[2017-10-14] MEDS: LEVOTHYROXINE 25 MCG TAB PO SCH (06:05)
[2017-10-14 06:50] LABS: PTT PATIENT 27.5 SECONDS (21.0-31.0)
[2017-10-14 07:10] LABS: CALCIUM 8.3 mg/dl (8.5-10.1); CREATININE 1.26 mg/dl (0.60-1.40); POTASSIUM 4.3 mmol/L (3.5-5.1)
[2017-10-14] MEDS ORDERED: ENOXAPARIN 1 MG/KG SQ SCH (07:45)
--- NOTE | 2017-10-14 07:58 | Clinical Documentation Query ---
CLINICAL DOCUMENTATION QUERY Dr. ADLER, In your clinical opinion is this patient being managed for: (x ) Chronic kidney disease, stage 3 ( ) Not Agree ( ) Other explanation of clinical findings (Please Explain; If no explanation given, this is considered a no response.) ( ) Unable to determine ( ) Need to Discuss (Please call CDS via extension or [email or web address]. If no interaction occurs, this is considered a no response.) The medical record reflects the following clinical findings, treatment, and risk factors. Clinical Indicators: 76 yo male presenting with an NSTEMI. Cardiology consult indicates pt has CKD. Review of historical GFR showed range of 46.4-58.8 over the past 2 years Treatment: monitor PRP's, treat comorbid diseases Risk Factors: age, DM, HTN, CVA, presumed CAD, sleep apnea Please clarify and document your clinical opinion in the progress notes and discharge summary. Terms such as "probable", "suspected", "likely", "questionable", "possible", or "still to be ruled out" are acceptable. IF IN AGREEMENT, YOU MUST DOCUMENT ABOVE DIAGNOSTIC STATEMENT IN DAILY PROGRESS NOTES AND DISCHARGE SUMMARY. This document is not part of the patient's record. Thank You, Lizet Caro, YUNIOR [phone]
--- NOTE | 2017-10-14 08:19 | CARDIOLOGY PROGRESS NOTE ---
DATE: 10/14/2017 TIME: 7:33 a.m. SUBJECTIVE: Mr. Cagle underwent PCI of his proximal RCA yesterday with Dr. Caro. He tolerated the procedure well. He has had intermittent chest discomfort this morning which is very mild, he stated. It was not accompanied by the left arm pain and he has not had any shortness of breath. Overall, he feels well. He has not yet walked in the hallways, however. He denies syncope, near syncope, palpitations or edema. He has not had any bleeding from his right radial cath site. OBJECTIVE: VITAL SIGNS: Temperature 36.6 degrees, heart rate 75 beats per minute, respiration rate 17, blood pressure 155/84 mmHg, oxygen saturation is 97% on room air. Weight is 87 kg. GENERAL: In no acute distress. He is alert. NECK: No JVD. CARDIAC: No ventricular heave. Regular, normal S1 and S2. There were no audible murmurs, rubs or gallops. LUNGS: Clear to auscultation bilaterally without wheezes, rales or rhonchi. ABDOMEN: Soft, nontender, nondistended. Normoactive bowel sounds. EXTREMITIES: No cyanosis or edema. Right radial cath site is clean, dry and intact without erythema or discharge. There is no hematoma. 2+ right radial pulse. PSYCHIATRIC: Affect appears appropriate. MEDICATIONS: Include aspirin 81 mg daily, atorvastatin 80 mg at bedtime, Plavix 75 mg daily, losartan 100 mg daily, metoprolol 50 mg twice daily, Rapaflo 8 mg daily. Telemetry personally reviewed. Did have a very brief episode of nonsustained SVT yesterday. LABORATORY DATA: Sodium 139, potassium 4.3, BUN 15, creatinine 1.26. Magnesium 2.1. Cardiac catheterization 10/13/2017: Proximal to mid LAD 30-40%. Proximal circumflex 30%. Small OM1 focal 90% proximally. Dominant RCA. Proximal RCA 95% hazy stenosis. Mid RCA 20-30%. Distal RCA 30-40%. LVEDP 15, underwent a proximal RCA PCI with a 3.5 x 18 mm [place] drug-eluting stent, postdilated with a 3.759 noncompliant balloon. ASSESSMENT AND PLAN: 1. Non-ST elevation myocardial infarction: He presented with unstable angina and has been found to have CAD. He underwent PCI of his proximal RCA. Dr. Caro has recommended Plavix, aspirin and Coumadin. 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 Continue high-intensity statin therapy, beta kristin, and ARB. 2. Coronary artery disease: Plan as above. Optimize antihypertensive regimen. Cardiac rehabilitation recommended. 3. Hypertension: We will increase metoprolol to 100 mg twice daily. If he remains hypertensive as an outpatient, could consider adding another medication such as HCTZ if no contraindications. Continue ARB. 4. Dyslipidemia: Continue high-intensity statin therapy in the form of atorvastatin upon discharge in place of his simvastatin. 5. 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 Recommend that he be fully anticoagulated now. 6. Chest pain: He has had intermittent chest discomfort since approximately 5:00 a.m. this morning. He has not had other symptoms that were consistent with his angina. We will repeat ECG and also recommend trending troponin levels to ensure that he is not infarcting; however, that is not likely at this point. 7. Disposition: If his troponins do not trend upward and he is able to ambulate in the hallway without symptoms, he could be discharged from a cardiac standpoint later this afternoon. Recommend that he be fully anticoagulated as noted above for his noncardiac issues. Plan of care discussed with primary hospitalist, Dr. العراقي.
[2017-10-14] MEDS: INSULIN ASPART 100 UNITS/ML 3 ML PEN SC SCH ×5 (08:37→21:01)
[2017-10-14] MEDS: DOXAZosin MESYLATE TAB 4 MG TAB PO SCH (08:38)
[2017-10-14] MEDS: LOSARTAN POTASSIUM 50 MG TAB PO SCH (08:38)
[2017-10-14] MEDS: METOPROLOL TARTRATE 50 MG TAB PO SCH ×2 (08:38→17:23)
[2017-10-14] MEDS: MAGNESIUM OXIDE 400 MG TAB PO SCH (08:39)
[2017-10-14] MEDS: PYRIDOXINE HCL 50 MG TAB PO SCH (08:40)
[2017-10-14] MEDS: ASPIRIN 81 MG ECTAB PO SCH (08:40)
[2017-10-14] MEDS ORDERED: WARFARIN SOD 5 MG TAB PO SCH (09:00)
[2017-10-14 09:01] LABS: HEMOGLOBIN A1C 7.6 % (4.5-5.6)
[2017-10-14] MEDS: CLOPIDOGREL BISULFATE 75 MG TAB PO SCH (09:08)
[2017-10-14 09:39] LABS: INR 1.3 (0.9-1.1)
--- NOTE | 2017-10-14 09:40 | Progress Note ---
Subjective Date of Service: October 14, 2017. Subjective Pt evaluation today including: conversation w/ patient, physical exam, chart review, lab review, review of studies, conversation w/ new home sales consultant, review of inpatient medication list Report mild chest pain in this morning when woke up, no more chest pain Problem List Medical Problems: (1) Back pain Status: Acute (2) Bilateral pulmonary embolism Status: Acute (3) Deep vein thrombosis Status: Acute (4) Deep vein thrombosis (DVT) Status: Acute (5) Encounter for removal of sutures Status: Acute (6) Substernal precordial chest pain Status: Acute (7) Subtherapeutic anticoagulation Status: Acute (8) Toe laceration Status: Acute Review of Systems Constitutional: No fever, No chills, No sweats, No weight loss, No weakness, No fatigue, No problem reported Eyes: No worsening of vision, No eye pain, No redness, No discharge, No diplopia ENT: No hearing loss, No unusual epistaxis, No nasal symptoms, No sore throat, No tinnitus, No dental problems, No trouble swallowing Respiratory: No cough, No sputum, No wheezing, No shortness of breath, No dyspnea on exertion, No dyspnea at rest, No hemoptysis Cardiac: No chest pain, No orthopnea, No PND, No edema, No claudication, No palpitations Abdomen: No pain, No nausea, No vomiting, No diarrhea, No constipation Musculoskeletal: No joint pain, No muscle pain, No swelling, No calf pain Male : No dysuria, No urinary frequency, No incontinence, No nocturia more than once/night, No slowing stream, No hematuria Neurologic: No memory loss, No paralysis, No weakness, No numbness/tingling, No vertigo, No balance problems Psychiatric: No depression symptoms, No anhedonism, No anxiety, No insomnia, No substance abuse Heme: No abnormal bleeding/bruising, No clotting problems, No swollen lymph nodes, No night sweats Endo: No fatigue, No excessive thirst, No excessive urination Skin: No rash, No itch, No new/changing skin lesions, No color change, No bleeding Objective Vital Signs Date Time Temp Pulse Resp B/P (MAP) Pulse Ox O2 Delivery O2 Flow Rate FiO2 10/14/17 07:08 37.2 75 20 166/90 (115) 97 10/14/17 05:03 36.6 75 17 155/84 (107) 97 Room Air 10/14/17 04:00 Room Air 10/14/17 00:24 36.8 71 17 154/88 (110) 95 Room Air 10/14/17 00:00 Room Air 10/13/17 20:40 36.6 84 20 170/84 (112) 96 Room Air 10/13/17 20:00 Room Air 10/13/17 17:45 37.6 16 173/94 (120) 94 Room Air 10/13/17 16:45 36.6 78 16 146/87 (106) 97 Nasal Cannula 10/13/17 16:15 36.7 74 18 134/84 (101) 96 Room Air 10/13/17 16:00 Room Air 10/13/17 15:45 36.8 74 16 144/88 (106) 97 Room Air 10/13/17 15:30 36.3 77 20 141/85 (103) 96 Room Air 10/13/17 15:15 36.3 67 20 136/81 (99) 96 Room Air 10/13/17 15:00 36.7 76 18 153/100 (117) 96 Room Air 10/13/17 14:54 66 18 123/66 (85) 96 Room Air 10/13/17 14:39 69 16 121/65 (83) 99 Mask 3 10/13/17 11:01 36.5 65 20 153/95 (114) 96 Room Air Physical Exam General Appearance: WD/WN, no apparent distress Eyes: normal inspection, PERRL, EOMI, sclerae normal ENT: normal ENT inspection, hearing grossly normal, pharynx normal Neck: supple, no adenopathy, thyroid normal, no JVD, no carotid bruits, trachea midline Respiratory/Chest: chest non-tender, normal breath sounds, no respiratory distress, no accessory muscle use, + decreased breath sounds Cardiovascular: regular rate, rhythm, no edema, no gallop, no JVD, no murmur Abdomen: normal bowel sounds, non tender, soft, no organomegaly, no pulsatile mass Extremities: normal range of motion, non-tender, normal inspection, no pedal edema, no calf tenderness, normal capillary refill, pelvis stable Neurologic/Psychiatric: alarm installation technician II-XII nml as tested, no motor/sensory deficits, alert, normal mood/affect, oriented x 3 Skin: normal color, warm/dry, no rash Lymphatic: no adenopathy Laboratory Results Last 24 Hours Test 10/13/17 11:16 10/13/17 14:06 10/13/17 14:38 10/13/17 15:27 Bedside Glucose 121 mg/dl [place] Activated Coagulation Time 252 SECONDS 263 SECONDS Activated Partial Thromboplast Time > 300.0 SECONDS Partial Thromboplastin Ratio > 11.0 Test 10/13/17 16:15 10/13/17 18:13 10/13/17 20:31 10/14/17 06:13 Bedside Glucose 124 mg/dl 188 mg/dl 217 mg/dl Activated Partial Thromboplast Time 27.5 SECONDS Partial Thromboplastin Ratio 1.1 Sodium Level 139 mmol/L Potassium Level 4.3 mmol/L Chloride Level 107 mmol/L Carbon Dioxide Level 24 mmol/L Anion Gap 7.0 mmol/L Blood Urea Nitrogen 15 mg/dl Creatinine 1.26 mg/dl Est Creatinine Clear Calc Drug Dose 54.8 ml/min Estimated GFR () 63.8 Estimated GFR (Non- 55.0 BUN/Creatinine Ratio 12.2 Random Glucose 174 mg/dl Estimated Average Glucose 171 mg/dl Hemoglobin A1c 7.6 % Calcium Level 8.3 mg/dl Phosphorus Level 3.0 mg/dl Magnesium Level 2.1 mg/dl Troponin I 0.699 ng/ml Test 10/14/17 07:09 10/14/17 09:22 Bedside Glucose 184 mg/dl Assessment and Plan 76 y/o M admitted on October 12, 2017 because of non-STEMI with indigestion-like CP , underwent PCI of his proximal RCA yesterday on October 13, 2017 Past medical Hx Factor V Leiden mutation - previous DVT, HTN, HPL, BPH, CVA, DM II non-STEMI with CP, SOB Associated with elevated trop INR is subtherapeutic on Coumadin s/p PCI of his proximal RCA on October 13, 2017 Dr. Caro has recommended Plavix, aspirin and Coumadin. 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 Continue high-intensity statin therapy, beta kristin , and ARB. discontinue heparin drip, Lovenox 1 mg/kg bridging when Coumadin is subtherapeutic First dose of Coumadin started today, has ordered a PT/INR check History of factor V mutation; see above Uncontrolled type II diabetic, DM , with HbA1c 7.6, continue sliding scale and home dose of Lantus Accelerated hypertension: cont Losartan, cardiology has increased metoprolol BPH: cont Rapaflo, Finasteride GI DVT prophylaxis covered, Full code - Coumadin prophylaxis Increase activities, watch for blood pressure heart rate, watch for sign of chest pain, Possible discharge home tomorrow morning This chart was completed in part utilizing [employer] Speech Voice Recognition software. Attempts were made to minimize the grammatical errors, random word insertions, pronoun errors and incomplete sentences. Any formal questions or concerns about the content, text or information contained within the body of this dictation should be directly addressed to the provider for clarification. Continued [facility] stay due to: home environment unsafe for pt Discharge planning: home
[2017-10-14] MEDS: ENOXAPARIN 100 MG/1ML SYR SQ SCH ×2 (11:39→20:58)
[2017-10-14] MEDS ORDERED: PHARMACY GLYCEMIC MGMT CONSULT SCH (12:07)
[2017-10-14] MEDS ORDERED: NURSING VERBAL MED ORDER ONE ×3 (12:15→17:30)
[2017-10-14] MEDS ORDERED: PHARMACY GLYCEMIC MGMT CONSULT PRN (12:30)
--- NOTE | 2017-10-14 13:42 | Pharmacy Progress Note ---
Glycemic Control Intl Consult Date of Service October 14, 2017. Scope Glycemic Pharmacist consulted by Dr العراقي on 10/14/17 for glycemic control and to write orders per [facility] inpatient glycemic control protocol Objective Weight (Kilograms): 87.000 Accuchecks BSG (last 24hrs): Test 10/13/17 16:15 10/13/17 18:13 10/13/17 20:31 10/14/17 06:13 Bedside Glucose 124 mg/dl (70-99) 188 mg/dl (70-99) 217 mg/dl (70-99) Random Glucose 174 mg/dl (70-99) Test 10/14/17 07:09 10/14/17 11:07 Bedside Glucose 184 mg/dl (70-99) 296 mg/dl (70-99) Laboratory Data (last 24hrs) Test 10/14/17 06:13 Anion Gap 7.0 mmol/L BUN/Creatinine Ratio 12.2 Blood Urea Nitrogen 15 mg/dl Creatinine 1.26 mg/dl Hemoglobin A1c 7.6 % Potassium Level 4.3 mmol/L Sodium Level 139 mmol/L HbA1c Test 10/14/17 06:13 Hemoglobin A1c 7.6 % (4.5-5.6) H Recent Pertinent Medications Outpatient Anti-diabetic Regimen: * Lantus 25 units SQ HS + humalog SS The patient is currently receiving: * Basal insulin: Lantus 25 units every 24 hours * Correctional Insulin: Novolog Correction per scale ACHS Goal Range: Low 120 mg/dL - High 160 mg/dL Correction Factor: 40 mg/dL/unit * Prandial insulin: none * Oral Agents: none Assessment & Plan ASSESSMENT: * 76 yr old T2DM male admitted for NSTEMI s/p PCI of proximal RCA * Patient developed hyperglycemia on 10/13 PM. Current BSG is 296 mg/dL. * Fasting BSG of 184 mg/dL is above goal - increase basal insulin by 20% * Post prandial BSGs are also above goal - tighten CF/CR PLAN FOR INPATIENT GLYCEMIC CONTROL: * Basal insulin * Increase Lantus to 30 units SQ HS (will give with dinner today only) * Bolus Insulin - increase * NOVOLOG per scale ACHS or Q6hrs while NPO * Lower Goal Range to: Low 110 mg/dL - High 140 mg/dL * Correction Factor: 25 mg/dL/unit * Nutritional / Prandial insulin per carb ratio of 1 unit per 9 grams CHO consumed * Add overnight check with coverage at 00 DISCHARGE RECOMMENDATIONS: * Adequate outpatient glycemic control evidenced by HbA1c of 7.6% * Continue home regimen on discharge and titrate to goal per outpatient provider. Thank you.
[2017-10-14] MEDS ORDERED: INSULIN GLARGINE SOLOSTAR 100 UNITS/ML 3 ML PEN SC SCH (16:45)
[2017-10-14] MEDS ORDERED: METOPROLOL TARTRATE 50 MG TAB PO ONE (17:00)
[2017-10-14] MEDS: ATORVASTATIN 40 MG TAB PO SCH (20:06)
[2017-10-14] MEDS: DOCUSATE SODIUM 100 MG CAP PO SCH (20:07)
[2017-10-14] MEDS: FINASTERIDE 5 MG TAB PO SCH (20:08)
[2017-10-14] MEDS: SILODOSIN 8 MG CAP PO SCH (20:09)
[2017-10-15] MEDS ORDERED: INSULIN ASPART 100 UNITS/ML 3 ML PEN SC SCH
[2017-10-15 03:53] VITALS: BP 130/87; TEMP 36.4; O2SAT 95
[2017-10-15] MEDS: LEVOTHYROXINE 25 MCG TAB PO SCH (05:44)
[2017-10-15 06:53] LABS: HEMATOCRIT 40.3 % (42-52); HEMOGLOBIN 14.4 g/dL (14.0-18.0); MEAN CELL VOLUME 97.1 fL (80-100); MEAN CORPUSCULAR HEMOGLOBIN 34.7 pg (25-34); MEAN CORPUSCULAR HGB CONC 35.7 g/dl (32-36); MEAN PLATELET VOLUME 9.6 fL (7.4-10.4); PLATELET COUNT 140 K/uL (130-400); WHITE BLOOD COUNT 4.86 K/uL (4.8-10.8)
[2017-10-15 07:02] LABS: INR 1.2 (0.9-1.1); PTT PATIENT 33.6 SECONDS (21.0-31.0)
[2017-10-15 07:12] VITALS: BP 157/79; PULSE 76; TEMP 36.7; O2SAT 96
[2017-10-15] MEDS ORDERED: PLV75 PO (07:43)
[2017-10-15] MEDS: INSULIN ASPART 100 UNITS/ML 3 ML PEN SC SCH ×2 (07:43→12:06)
[2017-10-15] MEDS ORDERED: LPT40 PO (07:43)
[2017-10-15] MEDS ORDERED: LVNIS100 SQ (07:43)
[2017-10-15] MEDS ORDERED: METO50TA16 PO (07:43)
[2017-10-15] MEDS ORDERED: ASPI-320 PO (07:43)
[2017-10-15] MEDS: CLOPIDOGREL BISULFATE 75 MG TAB PO SCH (07:44)
[2017-10-15] MEDS: ENOXAPARIN 100 MG/1ML SYR SQ SCH (07:44)
--- NOTE | 2017-10-15 07:44 | Discharge Instructions ---
Discharge Instructions Date of Service October 15, 2017. Admission Reason for Admission: Substernal Precordial Chest Pain Discharge Discharge Diagnosis / Problem: non-STEM Discharge Goals Goal(s): Decrease discomfort, Improve function, Increase independence, Improve disease control, Improve nutritional status, Learn about illness, Diagnostic testing, Therapeutic intervention, Prevent Disease Progression, Specific goals Activity Recommendations Activity Limitations: as noted below Lifting Limitations: no more than 5 pounds . Instructions / Follow-Up Instructions / Follow-Up you had heart attack had PCI of his proximal RCA Dr. Caro has recommended Plavix, aspirin and Coumadin. He recommended aspirin for 1 month and then continuation with Plavix and Coumadin you have Hx Factor V Leiden mutation - previous DVT, INR is subtherapeutic on Coumadin Rx of Lovenox 1 mg/kg bridging when Coumadin is subtherapeutic Lovenox need to be stopped when INR reach to 2 you need to check INR on Wednesday, and report to pcp, Rx of PT/INR is given - you need to follow up with your primary care physician in 1 week, - take medication as instructed, never overdose or any misuse, or take with alcohol, because misuse of medicine may cause organ damage or , call me , or your primary care physician if have questions of discharge medicaitons. - call your primary care physician, or go to local emergency room if has any fever/chill, chest pain, shortness of breathing, nausea/vomiting/abdominal pain , facial droop/slurry speech/local weakness, or if has any questions. - fall precaution - diet as instructed - you need to follow up with your subspecialist, such as Dr. Caro , you will get a phone call from their service for the appointment, but, you need to call if no body call you in 2-3 days. - you should understand that it is important to follow up the above instruction , and "not following the above instruction" may cause delayed or missed care of your medical conditions which may cause permanent organ damage and even . Home Care: * Take your medications exactly as directed. Don't skip doses. * Remember that recovery after a heart attack takes time. Plan to rest for at lease 4-8 weeks while you recover. Then return to normal activity when your doctor says it's okay. * Ask your doctor about joining a heart rehabilitation program. * Tell your doctor if you are feeling depressed. Feelings of sadness are common after a heart attack, but it is important that you speak to someone if you are feeling overwhelmed by these feelings. * If you are having chest pain, call 911 for an ambulance. Do NOT drive yourself to the hospital. * Ask your family members to learn CPR. * Learn to take your own blood pressure and pulse. Keep a record of your results. Ask your doctor when you should seek emergency medical attention. He or she will tell you which blood pressure reading is dangerous. Lifestyle Changes: * Maintain a healthy weight. Get help to lose any extra pounds. * Cut back on salt. * Limit canned, dried, packaged, and fast foods. * Don't add salt to your food. * Season foods with herbs instead of salt when you cook. * Break the smoking habit. Enroll in a stop-smoking program to improve your chances of success. * Limit fatty foods. * Ask your doctor about having your lipid levels checked regularly. * Build up your activity according to your doctor's recommendation. * Ask your doctor when it's okay to resume sexual activity. * Tell your doctor about any erectile dysfunction (ED) medication you are taking. Some ED medications are not safe if you take certain heart medications. * Try to manage stress. Follow Up: It is important for you to keep your follow up appointments with your medical provider. Current Hospital Diet Patient's current hospital diet: Diabetes Type 2 Diet, AHA Diet (Heart Healthy) Discharge Diet Recommended Diet: AHA Diet (Heart Healthy), Low Sodium Diet (2gm Na), Diabetes Type 2 Diet Pending Studies Studies pending at discharge: no Laboratory Results Hemoglobin A1c Test 10/14/17 06:13 Range/Units Estimated Average Glucose 171 mg/dl Hemoglobin A1c 7.6 H 4.5-5.6 % Medical Emergencies . Who to Call and When: Medical Emergencies: If at any time you feel your situation is an emergency, please call 911 immediately. Call 911 immediately or go to your nearest Emergency Room if you experience any of the following: Warning Signs and Symptoms of a Heart Attack * Chest pain that is not relieved by medication * Shortness of breath . Non-Emergent Contact Non-Emergency issues call your: Primary Care Provider, Oil Changer . . "Provider Documentation" section prepared by Martin العراقي. . AMI Core Measures Reason no ASA as I/P: Treatment provided - N/A Reason no ASA at D/C: Treatment provided - N/A Reason no statin as I/P: Treatment provided - N/A Reason no statin at D/C: Treatment provided - N/A
[2017-10-15] MEDS: METOPROLOL TARTRATE 50 MG TAB PO SCH (07:45)
[2017-10-15] MEDS: ASPIRIN 81 MG ECTAB PO SCH (07:46)
[2017-10-15] MEDS: DOXAZosin MESYLATE TAB 4 MG TAB PO SCH (07:46)
[2017-10-15] MEDS: PYRIDOXINE HCL 50 MG TAB PO SCH (07:46)
[2017-10-15] MEDS: LOSARTAN POTASSIUM 50 MG TAB PO SCH (07:47)
[2017-10-15] MEDS: MAGNESIUM OXIDE 400 MG TAB PO SCH (07:47)
[2017-10-15 12:02] VITALS: BP 126/81; PULSE 68; TEMP 36.7; O2SAT 97
--- NOTE | 2017-10-15 12:52 | Discharge Summary ---
Discharge Summary Date of Service October 15, 2017. 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 Medication Reconciliation New Medications: Aspirin (Aspirin EC Low Dose) 81 Mg Ectab 81 MG PO QAM for 30 Days Atorvastatin (Lipitor) 40 Mg Tab 80 MG PO HS for 30 Days, TAB Clopidogrel Bisulfate (Clopidogrel) 75 Mg Tab 75 MG PO QAM for 30 Days, #30 TAB Enoxaparin (Enoxaparin Sodium) 100 Mg/Ml Inj 90 MG SQ Q12H for 5 Days need to stop when INR>2 Metoprolol Tartrate (Lopressor) (Lopressor) 50 Mg Tab 100 MG PO BID for 30 Days, #120 TAB Continued Medications: Docusate Sodium (Docusate Sodium) 100 Mg Cap 300 MG PO QPM, CAP Doxazosin Mesylate (Doxazosin Mesylate) 4 Mg Tab 4 MG PO QAM Finasteride (Finasteride) 5 Mg Tab 5 MG PO QPM Folic Acid (Folvite) 1 Mg Tab 1 MG PO DAILY, TAB Insulin Glargine (Lantus) 100 Unit/Ml Inj 25 UNITS SC QPM Insulin Lispro (Human) (Humalog) 100 Unit/Ml Inj 1 DOSE SC ACHS COVERAGE DIRECTED BY SLIDING SCALE Levothyroxine Sodium (Levothyroxine Sodium) 25 Mcg Tab 25 MCG PO DAILY TAKE THIS MEDICATION ON AN EMPTY STOMACH 30 MINUTES BEFORE EATING OR TAKING ANY OTHER MEDICATIONS Losartan Potassium (Cozaar) 100 Mg Tab 100 MG PO QAM Lutein-Zeaxanthin (Lutein) 1 Cap Cap 1 CAP PO DAILY Magnesium (Magnesium 250 mg) 1 Tab Tab 250 MG PO DAILY Multivitamin (Multivitamin) Tab 1 TABLET PO DAILY Nitroglycerin (Nitrostat) 0.4 Mg Tab 0.4 MG UT UD PRN for Chest Pain PLACE ONE TABLET UNDER THE TONGUE EVERY 5 MINUTES FOR UP TO 3 DOSES OVER 15 MINUTES IF NEEDED FOR CHEST PAIN Pyridoxine (Vitamin B6) 100 Mg Tab 100 MG PO DAILY, TAB Silodosin (Rapaflo) 8 Mg Cap 8 MG PO PM Warfarin Sodium (Warfarin Sodium) 5 Mg Tab 2.5 MG PO 2XWK, TAB TAKE HALF A TABLET (2.5 MG) EVERY WEDNESDAY AND WEDNESDAY OR OTHERWISE DIRECTED TO TAKE BY ANTICOAGULATION CLINIC/MD Warfarin Sodium (Warfarin Sodium) 5 Mg Tab 5 MG PO 5XWK TAKE 5 MG EVERY WEDNESDAY,WEDNESDAY,WEDNESDAY,WEDNESDAY AND WEDNESDAY OR OTHERWISE DIRECTED TO TAKE BY ANTICOAGULATION CLINIC/MD Discontinued Medications: Metoprolol Tartrate (Lopressor) 25 Mg Tab 25 MG PO BID Simvastatin (Simvastatin) 40 Mg Tab 40 MG PO QPM Discharge Exam Up and walk, no chest pain, denies shortness of breath, no lower extremity swelling Review of Systems: Constitutional: No fever, No chills, No sweats, No weight loss, No weakness , No fatigue, No problem reported Eyes: No worsening of vision, No eye pain, No redness, No discharge, No diplopia, No problem reported ENT: No hearing loss, No unusual epistaxis, No nasal symptoms, No sore throat, No tinnitus, No dental problems, No trouble swallowing, No problem reported Respiratory: No cough, No sputum, No wheezing, No shortness of breath, No dyspnea on exertion, No dyspnea at rest, No hemoptysis, No problem reported Cardiovascular: No chest pain, No orthopnea, No PND, No edema, No claudication, No palpitations, No problem reported Abdomen: No pain, No nausea, No vomiting, No diarrhea, No constipation, No GI bleeding, No problem reported Musculoskeletal: No joint pain, No muscle pain, No swelling, No calf pain, No problem reported Genitourinary - Male: No hematuria, No dysuria, No urinary frequency, No urinary urgency, No urinary hesitancy, No urinary retention, No urinary incontinence, No penile discharge, No lesions, No impotence, No problem reported Neurologic: No memory loss, No paralysis, No weakness, No numbness/tingling , No vertigo, No balance problems, No problem reported Psychiatric: No depression symptoms, No anhedonism, No anxiety, No insomnia , No substance abuse, No problem reported Endocrine: No fatigue, No excessive thirst, No excessive urination, No problem reported Hematologic / Lymphatic: No abnormal bleeding/bruising, No clotting problems , No swollen lymph nodes, No night sweats, No problem reported Integumentary: No rash, No itch, No new/changing skin lesions, No color change, No bleeding, No problem reported Physical Exam: General Appearance: WD/WN, no apparent distress Eyes: normal inspection, PERRL, EOMI ENT: normal ENT inspection, hearing grossly normal Neck: supple, no adenopathy Respiratory/Chest: chest non-tender, normal breath sounds, no respiratory distress, no accessory muscle use, + decreased breath sounds Cardiovascular: regular rate, rhythm, no edema, no gallop, no JVD, no murmur Abdomen / GI: normal bowel sounds, non tender, soft, no organomegaly, no pulsatile mass, normal rectal exam Extremities: normal inspection, no calf tenderness, normal capillary refill , no pedal edema, normal range of motion Neurologic/Psychiatric: superintendent mechanical II-XII nml as tested, no motor/sensory deficits , alert, normal mood/affect, normal reflexes, oriented x 3 Skin: normal color, warm/dry, no rash Hospital Course 76 y/o M admitted on October 12, 2017 because of non-STEMI with indigestion-like CP , underwent PCI of his proximal RCA yesterday on October 13, 2017 Past medical Hx Factor V Leiden mutation - previous DVT, HTN, HPL, BPH, CVA, DM II non-STEMI with CP, SOB upon admission Associated with elevated trop appointment INR is subtherapeutic on Coumadin s/p PCI of his proximal RCA on October 13, 2017 has been continued to be stable Dr. Caro has recommended Plavix, aspirin and Coumadin. 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 Continue high-intensity statin therapy, beta kristin , and ARB. discontinue heparin drip, Lovenox 1 mg/kg bridging when Coumadin is subtherapeutic First dose of Coumadin restarted yesterday, will continue home dose of Coumadin for now , has ordered a PT/INR check Has instructed to continue Lovenox 1 mg/kg bridging until INR reaching to 2 History of factor V mutation; see above Uncontrolled type II diabetic, DM , with HbA1c 7.6, continue sliding scale and home dose of Lantus Accelerated hypertension: cont Losartan, cardiology has increased metoprolol BPH: cont Rapaflo, Finasteride GI DVT prophylaxis covered, Full code - Coumadin prophylaxis Increase activities, watch for blood pressure heart rate, watch for sign of chest pain, Upon discharge discussed with Dr. Caro, detailed discharge instruction has been given, which includes " need to be seen by Dr. Larsen in 1 week, per Gordo Cisse you can resume mild activity in 3 days, ok to walk up stair, in the follow up appointment with Dr. Larsen, he will help you for cardiac rehab program", these are specific questions from patient's son as well Instructions / Follow-Up you had heart attack had PCI of his proximal RCA Dr. Caro has recommended Plavix, aspirin and Coumadin. He recommended aspirin for 1 month and then continuation with Plavix and Coumadin you have Hx Factor V Leiden mutation - previous DVT, INR is subtherapeutic on Coumadin Rx of Lovenox 1 mg/kg bridging when Coumadin is subtherapeutic Lovenox need to be stopped when INR reach to 2 you need to check INR on Wednesday, and report to pcp, Rx of PT/INR is given - you need to follow up with your primary care physician in 1 week, - take medication as instructed, never overdose or any misuse, or take with alcohol, because misuse of medicine may cause organ damage or , call me , or your primary care physician if have questions of discharge medicaitons. - call your primary care physician, or go to local emergency room if has any fever/chill, chest pain, shortness of breathing, nausea/vomiting/abdominal pain , facial droop/slurry speech/local weakness, or if has any questions. - fall precaution - diet as instructed - you need to follow up with your subspecialist, such as Dr. Caro , you will get a phone call from their service for the appointment, but, you need to call if no body call you in 2-3 days. - you should understand that it is important to follow up the above instruction , and "not following the above instruction" may cause delayed or missed care of your medical conditions which may cause permanent organ damage and even . This chart was completed in part utilizing [employer] Speech Voice Recognition software. Attempts were made to minimize the grammatical errors, random word insertions, pronoun errors and incomplete sentences. Any formal questions or concerns about the content, text or information contained within the body of this dictation should be directly addressed to the provider for clarification. Total Time Spent: Greater than 30 minutes This includes examination of the patient, discharge planning, medication reconciliation, and communication with other providers. Discharge Instructions Please refer to the electronic Patient Visit Report (Discharge Instructions) for additional information. Additional Copies To Sheng Sherman M.D.; Earl Caro MD; Alberto Castillo MD
== END 2017-10-15 13:35 | disposition home or self-care (01) | DRG 247 ==
LOC: C.EDB 11:06 → C.2T 14:00 → ENRESERV 14:38 → OBSVTOIN 10-13 12:17
PROVIDERS: ADMIT Internal Medicine; ATTEND Hospitalist
PROC: B210YZZ Fluoroscopy of Single Coronary Artery using Other Contrast (ICD-10-PCS; principal; 2017-10-13 13:27)
PROC: 4A023N7 Measurement of Cardiac Sampling and Pressure, Left Heart, Percutaneous Approach (ICD-10-PCS; principal; 2017-10-13 13:27)
PROC: 027034Z Dilation of Coronary Artery, One Artery with Drug-eluting Intraluminal Device, Percutaneous Approach (ICD-10-PCS; principal; 2017-10-13 13:27)
DX: I21.4 Non-ST elevation (NSTEMI) myocardial infarction (principal); D68.51 Activated protein C resistance; E78.5 Hyperlipidemia, unspecified; N40.0 Benign prostatic hyperplasia without lower urinary tract symptoms; I25.10 Atherosclerotic heart disease of native coronary artery without angina pectoris; I12.9 Hypertensive chronic kidney disease with stage 1 through stage 4 chronic kidney disease, or unspecified chronic kidney disease; G47.30 Sleep apnea, unspecified; M10.9 Gout, unspecified; E03.9 Hypothyroidism, unspecified; E11.22 Type 2 diabetes mellitus with diabetic chronic kidney disease; N18.3 Chronic kidney disease, stage 3 (moderate); E55.9 Vitamin D deficiency, unspecified; Z86.711 Personal history of pulmonary embolism; Z86.718 Personal history of other venous thrombosis and embolism; Z88.0 Allergy status to penicillin; Z88.2 Allergy status to sulfonamides; Z79.01 Long term (current) use of anticoagulants; Z79.4 Long term (current) use of insulin; Z86.73 Personal history of transient ischemic attack (TIA), and cerebral infarction without residual deficits; Z80.9 Family history of malignant neoplasm, unspecified; Z82.49 Family history of ischemic heart disease and other diseases of the circulatory system; Z82.3 Family history of stroke; Z83.3 Family history of diabetes mellitus

== ENCOUNTER 2017-10-21 14:45 | Emergency (ER) | payer OTHER, BC ==
[~2017-10-21] VITALS: Ht 182.9 cm; Wt 89.0 kg
[~2017-10-21 14:45] MED LIST changes: +ASPI-320 PO; -LPR25 PO; +LPT40 PO; +LVNIS100 SQ; +METO50TA16 PO; +PLV75 PO; -ZCR40 PO
[2017-10-21 14:50] VITALS: TEMP 36.7; O2SAT 95; Ht 182.9 cm; Wt 89.0 kg
[2017-10-21] MEDS ORDERED: ATOR-26 PO (15:24)
[2017-10-21 15:28] LABS: HEMATOCRIT 37.4 % (42-52); HEMOGLOBIN 13.3 g/dL (14.0-18.0); MEAN CELL VOLUME 96.9 fL (80-100); MEAN CORPUSCULAR HEMOGLOBIN 34.5 pg (25-34); MEAN CORPUSCULAR HGB CONC 35.6 g/dl (32-36); MEAN PLATELET VOLUME 9.7 fL (7.4-10.4); PLATELET COUNT 185 K/uL (130-400); RED CELL DISTRIBUTION WIDTH CV 12.1 % (11.5-14.5); RED CELL DISTRIBUTION WIDTH SD 42.5 fL (36.4-46.3); WHITE BLOOD COUNT 6.05 K/uL (4.8-10.8)
--- NOTE | 2017-10-21 15:35 | DIAGNOSTIC IMAGING REPORT ---
CHEST ONE VIEW PORTABLE CLINICAL HISTORY: 76 years-old Male presenting with s/p stenting, recent TN,. TECHNIQUE: Portable upright AP view of the chest was obtained. COMPARISON: 10/12/2017. FINDINGS: Atherosclerosis of aortic arch. Cardiac silhouette mildly enlarged. Mild prominence of pulmonary vasculature. No focal opacity. No large effusion or pneumothorax. Degenerative changes of the thoracic spine. IMPRESSION: 1. Mild cardiomegaly. No other convincing evidence of acute cardiopulmonary disease. Electronically signed by: Sheng Marroquin M.D. 10/21/2017 3:34 PM Dictated Date/Time: 10/21/2017 3:33 PM
[2017-10-21 15:39] LABS: ALBUMIN 3.5 gm/dl (3.4-5.0); CALCIUM 8.4 mg/dl (8.5-10.1); CREATININE 1.38 mg/dl (0.60-1.40); POTASSIUM 4.5 mmol/L (3.5-5.1); TOTAL PROTEIN 6.4 gm/dl (6.4-8.2)
[2017-10-21 15:43] LABS: INR 1.7 (0.9-1.1); PTT PATIENT 31.8 SECONDS (21.0-31.0)
[2017-10-21 15:49] LABS: ISTAT CREATININE 1.3 mg/dl (0.6-1.3); ISTAT IONIZED CALCIUM 1.13 mmol/l (1.12-1.32); ISTAT POTASSIUM 4.1 mEq/L (3.3-5.0)
--- NOTE | 2017-10-21 16:53 | DIAGNOSTIC IMAGING REPORT ---
HEAD CT NONCONTRAST CT DOSE: 537.48 mGy.cm HISTORY: slurred speech TECHNIQUE: Multiaxial CT images of the head were performed without the use of intravenous contrast. Automated exposure control was utilized for this study. A dose lowering technique was utilized adhering to the principles of ALARA. Comparison: Head CT 02/20/2015 Findings: The paranasal sinuses and mastoid air cells are clear. The calvarium and skull base are intact. The ventricles and sulci are within normal limits. There is no mass, hematoma, midline shift, or acute infarct. Impression: No acute intracranial abnormality. Electronically signed by: Matthew Marina M.D. 10/21/2017 4:52 PM Dictated Date/Time: 10/21/2017 4:48 PM
--- NOTE | 2017-10-21 17:57 | EMERGENCY ROOM VISIT NOTE ---
History Report prepared by Leroy: Caitlin Woo Under the Supervision of: Dr. Andressa eMyers D.O. First contact with patient: 14:49 Stated Complaint: AMS History of Present Illness The patient is a 76 year old male who presents to the Emergency Room with complaints of persistent speech difficulty starting around 1330. He presents to the ED by EMS. The patient was trying to explain something to his when he started stumbling over his words. He seemed to be unable to explain what he wanted to say. The patient states that he was able to think of what he wanted to say, but was unable to say the words. His did not notice any weakness or facial droop. His speech is improved now, but is not back to normal. It sounds slightly slurred per his . He feels slightly dizzy or "off". He denies any headache, blurry or double vision, lightheadedness, chest pain, SOB, or nausea. He had similar symptoms with his previous CVA 2 years ago where he was unable to explain something to his . He received TPA at that time which improved his symptoms. He had a stent placed last week after an [place]. He is on ASA , Plavix and Coumadin. He finished his Lovenox shots yesterday. His last INR was 2 taken at home today. He has a history of diabetes. Review of EMR shows patient had an NSTEMI and had a stent placed in the proximal LAD. Source of History: patient, spouse/significant other Onset: 1330 Position: head Quality: other (speech difficulty) Timing: other (persistent, improved) Associated Symptoms: No headache, No chest pain, No SOB, No nausea, No weakness Review of Systems See HPI for pertinent positives & negatives. A total of 10 systems reviewed and were otherwise negative. Past Medical & Surgical Medical Problems: (1) acute DVt and PE (2) Diabetes (3) Hyperlipemia (4) Hypertension (5) NSTEMI (6) NSTEMI (7) NSTEMI (non-ST elevated myocardial infarction) (8) Stroke (9) Troponin I above reference range Family History Cancer Diabetes mellitus Gallbladder disease Heart disease Hypertension Stroke Social History Alcohol Use: none Drug Use: none Marital Status: Housing Status: lives with family Occupation Status: retired Current/Historical Medications Scheduled Aspirin (Aspirin EC Low Dose), 81 MG PO QAM Atorvastatin (Lipitor), 80 MG PO QPM Clopidogrel Bisulfate (Clopidogrel), 75 MG PO QAM Docusate Sodium (Docusate Sodium), 300 MG PO QPM Doxazosin Mesylate (Doxazosin Mesylate), 4 MG PO QAM Finasteride (Finasteride), 5 MG PO QPM Folic Acid (Folvite), 1 MG PO DAILY Insulin Glargine (Lantus), 25 UNITS SC QPM Insulin Lispro (Human) (Humalog), 1 DOSE SC ACHS Levothyroxine Sodium (Levothyroxine Sodium), 25 MCG PO DAILY Losartan Potassium (Cozaar), 100 MG PO QAM Lutein-Zeaxanthin (Lutein), 1 CAP PO DAILY Magnesium (Magnesium 250 mg), 250 MG PO DAILY Metoprolol Tartrate (Lopressor) (Lopressor), 100 MG PO BID Multivitamin (Multivitamin), 1 TABLET PO DAILY Pyridoxine (Vitamin B6), 100 MG PO DAILY Silodosin (Rapaflo), 8 MG PO PM Warfarin Sodium (Warfarin Sodium), 2.5 MG PO 2XWK Warfarin Sodium (Warfarin Sodium), 5 MG PO 5XWK Scheduled PRN Nitroglycerin (Nitrostat), 0.4 MG UT UD PRN for Chest Pain Allergies Coded Allergies: Clindamycin (Verified Allergy, Intermediate, Rash, 10/12/17) Penicillins (Verified Allergy, Unknown, 10/12/17) Sulfa Antibiotics (Verified Allergy, Unknown, HIVES, 10/12/17) PER YUNIOR REYNOLDS (SHE SPOKE WITH PATIENT) Physical Exam Vital Signs Date Time Temp Pulse Resp B/P (MAP) Pulse Ox O2 Delivery O2 Flow Rate FiO2 10/21/17 23:44 85 15 149/82 96 10/21/17 22:00 67 18 161/69 95 Room Air 10/21/17 20:00 61 18 149/78 95 Room Air 10/21/17 19:21 62 10/21/17 18:00 58 18 155/83 97 Room Air 10/21/17 16:20 64 18 132/64 97 Room Air 10/21/17 15:14 70 10/21/17 14:50 95 Room Air 10/21/17 14:50 36.7 66 18 141/69 95 Room Air Physical Exam GENERAL: alert, well appearing, well nourished, no distress, non-toxic EYE EXAM: normal conjunctiva, PERRL and EOM's grossly intact OROPHARYNX: no exudate, no erythema, lips, buccal mucosa, and tongue normal and mucous membranes are moist NECK: supple, no nuchal rigidity, no adenopathy, non-tender LUNGS: Clear to auscultation. Normal chest wall mechanics, no w/r/r HEART: no murmurs, S1 normal and S2 normal ABDOMEN: abdomen soft, non-tender, normo-active bowel sounds, no masses, no rebound or guarding. BACK: Back is symmetrical on inspection and there is no deformity, no midline tenderness, no CVA tenderness. SKIN: no rashes or sores UPPER EXTREMITIES: resolving ecchymosis noted to bilateral forearms consistent with recent hospitalization. FROM, nml pulses. LOWER EXTREMITIES: No pitting edema. FROM, nml pulses. NEURO EXAM: Normal sensorium, cranial nerves II-XII intact, speech slightly deliberate but no slurring, appropriate answers to questions, no weakness of arms, no weakness of legs. No drift. Finger to nose intact. Gross sensation intact. No facial droop. NIH stroke score 0. Medical Decision & Procedures ER Provider Diagnostic Interpretation: Radiology results have been interpreted by the radiologist and reviewed by me. CHEST ONE VIEW PORTABLE CLINICAL HISTORY: 76 years-old Male presenting with s/p stenting, recent [place],. TECHNIQUE: Portable upright AP view of the chest was obtained. COMPARISON: 10/12/2017. FINDINGS: Atherosclerosis of aortic arch. Cardiac silhouette mildly enlarged. Mild prominence of pulmonary vasculature. No focal opacity. No large effusion or pneumothorax. Degenerative changes of the thoracic spine. IMPRESSION: 1. Mild cardiomegaly. No other convincing evidence of acute cardiopulmonary disease. Electronically signed by: Sheng Marroquin M.D. 10/21/2017 3:34 PM Dictated Date/Time: 10/21/2017 3:[address]AST CT DOSE: 537.48 mGy.cm HISTORY: slurred speech TECHNIQUE: Multiaxial CT images of the head were performed without the use of intravenous contrast. Automated exposure control was utilized for this study. A dose lowering technique was utilized adhering to the principles of ALARA. Comparison: Head CT 02/20/2015 Findings: The paranasal sinuses and mastoid air cells are clear. The calvarium and skull base are intact. The ventricles and sulci are within normal limits. There is no mass, hematoma, midline shift, or acute infarct. Impression: No acute intracranial abnormality. Electronically signed by: Matthew Marina M.D. 10/21/2017 4:52 PM Dictated Date/Time: 10/21/2017 4:[address] ANGIOGRAM OF THE BRAIN; CT ANGIOGRAM OF THE NECK CLINICAL HISTORY: Transient ischemic attack. Neck pain. COMPARISON STUDY: Unenhanced CT scan of the brain dated 10/21/2017. CT angiogram of the head and neck dated 02/19/2015. TECHNIQUE: Following the IV administration of 119 of Optiray 320, CT angiogram of the head and neck was performed from the aortic arch to the vertex. Images are reviewed in the axial, sagittal, and coronal planes. 3-D MIPS images are created and assessed. IV contrast was administered without complication. All measurements were calculated based on NASCET criteria. A dose lowering technique was utilized adhering to the principles of ALARA. CT DOSE: 494.48 mGy.cm FINDINGS: Brain parenchyma: There are age-related involutional changes noting mild patchy subcortical and periventricular microangiopathic disease. There is no hemorrhage, mass effect, or evidence of acute territorial ischemia by CT criteria. There is no evidence of enhancing mass lesion on the angiogram phase images. The ventricles, sulci, and cisterns are prominent secondary to involutional change. Carrillo-white matter differentiation is preserved. No extra-axial fluid collection is seen. Thoracic aorta: There is atherosclerotic calcification of the imaged portions of the thoracic aorta. The visualized thoracic aorta is normal in caliber and the arch demonstrates standard 3-vessel anatomy. Right carotid arterial system: The right common carotid artery is widely patent, as are the right internal and external carotid arteries. There is atherosclerotic calcification of the carotid bulb. Left carotid arterial system: The left common carotid artery is widely patent, as are the left internal and external carotid arteries. There is evidence carotid calcification of the left carotid bulb. 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 This is immediately reconstituted, and the remainder of the left vertebral artery is patent. The right vertebral artery is patent throughout. The right vertebral artery is dominant. Subclavian arteries: Widely patent bilaterally. Intracranial vasculature: There is origin of both posterior cerebral arteries. After carotid calcification is noted in the cavernous carotid and vertebral arteries. There is slightly greater then 50% stenosis of the petrous portion of the left internal carotid artery seen on axial image #343. The internal carotid arteries at the skull base are otherwise widely patent, as are the anterior and middle cerebral arteries bilaterally. The vertebrobasilar system is patent, as are the posterior cerebral arteries. The basilar artery is diminutive with atherosclerotic irregularity. The right vertebral artery is dominant. There is no aneurysm or focal vessel cut off seen throughout the intracranial circulation. Jugular veins: Widely patent bilaterally. Dural sinuses: Patent. Orbits: The bony orbits are intact. Orbital contents are normal as visualized. Lung apices: Partially visualized upper lobe lung parenchyma appears clear. Soft tissues: The visualized pharyngeal soft tissues are normal in appearance noting angiographic phase technique. The oropharyngeal airway appears widely patent. The salivary and thyroid glands are normal in appearance. No cervical lymphadenopathy is seen. Skeletal structures: The skeletal structures are osteopenic. The calvarium is normal in appearance. The cervical spine appears intact noting multilevel spondylosis. Sinuses and mastoids: There is trace mucosal thickening within the maxillary antra. The paranasal sinuses are otherwise clear. There is a trace right mastoid effusion. The left mastoid air cells are well pneumatized. IMPRESSION: 1. There is no hemorrhage, mass effect, or evidence of acute territorial ischemia by CT criteria. 2. 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 This is immediately reconstituted and the remainder of the vessel is patent. This is of indeterminate chronicity but is new from the 2015 examination. 3. 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 This has progress from the 2015 examination. 4. The carotid arteries are otherwise widely patent bilaterally, as is the right vertebral artery. 5. No aneurysm is seen. 6. There is atherosclerotic irregularity of the basilar artery. Electronically signed by: Jalen Taylor M.D. 10/21/2017 8:17 PM Dictated Date/Time: 10/21/2017 8:02 PM Laboratory Results 10/21/17 14:50 10/21/17 14:50 Test 10/21/17 14:50 10/21/17 15:34 10/21/17 15:43 10/21/17 22:42 Red Blood Count 3.86 M/uL (4.7-6.1) Mean Corpuscular Volume 96.9 fL (80-100) Mean Corpuscular Hemoglobin 34.5 pg (25-34) Mean Corpuscular Hemoglobin Concent 35.6 g/dl (32-36) RDW Standard Deviation 42.5 fL (36.4-46.3) RDW Coefficient of Variation 12.1 % (11.5-14.5) Mean Platelet Volume 9.7 fL (7.4-10.4) Prothrombin Time 18.0 SECONDS (9.0-12.0) Prothromb Time International Ratio 1.7 (0.9-1.1) Activated Partial Thromboplast Time 31.8 SECONDS (21.0-31.0) Partial Thromboplastin Ratio 1.2 Est Creatinine Clear Calc Drug Dose 50.0 ml/min Estimated GFR () 57.2 Estimated GFR (Non- 49.3 BUN/Creatinine Ratio 14.6 (10-20) Estimated Average Glucose 166 mg/dl Hemoglobin A1c 7.4 % (4.5-5.6) Calcium Level 8.4 mg/dl (8.5-10.1) Total Bilirubin 0.6 mg/dl (0.2-1) Aspartate Amino Transf (AST/SGOT) 31 U/L (15-37) Alanine Aminotransferase (ALT/SGPT) 39 U/L (12-78) Alkaline Phosphatase 60 U/L (45-117) Total Protein 6.4 gm/dl (6.4-8.2) Albumin 3.5 gm/dl (3.4-5.0) Globulin 2.9 gm/dl (2.5-4.0) Albumin/Globulin Ratio 1.2 (0.9-2) Bedside Hemoglobin 12.6 g/dl (14.0-18.0) Bedside Hematocrit 37 % (42-52) Bedside Sodium 137 mEq/L (135-144) Bedside Potassium 4.1 mEq/L (3.3-5.0) Bedside Chloride 100 mEq/L (101-112) Bedside Total CO2 24 mEq/l (24-31) Anion Gap 19.0 mmol/L (16-25) Bedside Blood Urea Nitrogen 22 mg/dl (7-18) Bedside Creatinine 1.3 mg/dl (0.6-1.3) Bedside Glucose (other) 236 mg/dl (70-99) Bedside Ionized Calcium (Yayo) 1.13 mmol/l (1.12-1.32) Bedside Prothrombin Time INR 1.9 (0.9-1.1) Bedside Glucose 148 mg/dl (70-99) Test 10/21/17 23:16 Troponin I < 0.015 ng/ml (0-0.045) Laboratory results per my review. Medications Administered Medications (Trade) Dose Ordered Sig/Yadi Route Start Time Stop Time Status Last Admin Dose Admin Warfarin Sodium (Coumadin Tab) 7.5 mg NOW STAT PO 10/21/17 23:33 10/21/17 23:34 DC 10/21/17 23:41 7.5 MG Enoxaparin Sodium (Lovenox Inj) 129 mg NOW STAT SQ 10/21/17 23:34 10/21/17 23:35 DC 10/21/17 23:43 129 MG ECG Per My Interpretation Indication: altered mental status Rate (beats per minute): 65 Rhythm: sinus rhythm Findings: 1st degree AV block, Q waves (lead 3), T-wave inversion (2, 3, aVF, V5, V6) Comparison ECG Date: 14-Oct-2017 Change: T-wave inversions are new. ED Course 1506: The patient was evaluated in room A9B. A complete history and physical exam was performed. 1711: Upon reevaluation, the patient is back to baseline. I discussed the findings and the treatment plan with the patient. He expresses agreement and understanding. He will be evaluated for further management. 1738: I reviewed the patient's case with CHIDI Barrett [facility] hospitalist. He will evaluate the patient for further management. 1840: Dr. Wang requests that I consult neuro. 1845: I discussed the patient's [facility] He recommends CTA head and neck. Hospitalist will follow this up. 2200: Dr. Chen, [facility] resident came to me stating that patient could be discharged. I asked if she had discussed the angiography readings with neurology. She stated that she had not, I asked her to do so to verify with neurology agreed that this was a safe plan and to make recommendations regarding his anticoagulation and antiplatelet therapy. 2315: Dr. Chen has discussed the case with Dr. Dial, neurology. I am told that they will place additional orders for additional anticoagulation to bridge patient to therapeutic levels, and asked the patient to do close follow-up on his anticoagulation and follow-up with his neurologist Dr. Stein. 2325: Dr. Sommers asked if I would place discharge orders for the patient. Patient has been giving an additional dose of Lovenox 1.5 mg/kg here, an additional dose of Coumadin. He is to recheck his INR at home tomorrow and follow-up with his regular doctor. If he does not already have a follow-up appointment scheduled so he is also see his neurologist next week. Medical Decision Differential diagnosis: CVA/TIA, ICH, seizure, panic attack, medication reaction. Medication Reconcilliation Current Medication List: was personally reviewed by me Blood Pressure Screening Patient's blood pressure: Elevated blood pressure Referred to hospitalist. Consults Time Called: 172 Consulting Physician: CHIDI Barrett hospitalist Returned Call: [phone] I reviewed the patient's case with him. He will evaluate the patient for further management. Additional Consults: Time Called: [phone] Consulted Physician: ALLA Chiu neurology Returned Call: [phone] Additional Comments: I discussed the patient's case with him. He recommends CTA head and neck. Impression Primary Impression: TIA (transient ischemic attack) Additional Impressions: Subtherapeutic international normalized ratio (INR) Neck pain Critical Care I have personally spent greater than 45 minutes of critical care time in the direct management of this patient. This includes bedside care, interpretation of diagnostic studies, and testing, discussion with consultants, patient, and family members, and other required patient management activities. This 45 minutes is in excess of all separately billable procedures. Scribe Attestation The scribe's documentation has been prepared under my direction and personally reviewed by me in its entirety. I confirm that the note above accurately reflects all work, treatment, procedures, and medical decision making performed by me. Departure Information Dispostion Being Evaluated By Hospitalist Sheng Hernandez M.D. (PCP) Stroke History Time Last Known Well 1330 Stroke t-PA Criteria Reviewed Does NOT meet criteria for t-PA Reason t-PA Not Given Treatment not indicated Strict Exclusion Criteria INR greater than 1.7 Relative Exclusion Criteria [place] in last 3 months Extended Window (3-4.5 hour) Any anticoagulant use Problem Qualifiers Primary Impression: TIA (transient ischemic attack) Transient cerebral ischemia type: unspecified Qualified Codes: G45.9 - Transient cerebral ischemic attack, unspecified
--- NOTE | 2017-10-21 18:30 | History and Physical ---
History & Physical Date & Time of Service: October 21, 2017 at 17:57 Chief Complaint: AMS Primary Care Physician: Sheng Sherman M.D. History of Present Illness Source: patient, hospital records, other 76 y/o M Hx Factor V Leiden mutation - previous DVT/PE, HTN, HPL, BPH, CVA, DM II. Recent admission for NSTEMI 10/12. 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 He presented to the ER, although his aphasia had resolved at the time of arrival. He does complain of neck pain on admission. He denies CP or SOB. He has not had unilateral weakness, numbness or visual changes. Past Medical/Surgical History 1) CVA 2014 - received TPA - no residuals 2) HTN 3) HPL 4) Factor V Leiden mutation 5) DVT/PE 6) BPH 7) DM II 8) CAD - NSTEMI 10/12/17 Cardiac catheterization: 10/13/17 - Proximal to mid LAD 30-40%. Proximal circumflex 30%. Small OM1 focal 90% proximally. Dominant RCA. Proximal RCA 95% hazy stenosis. Mid RCA 20-30%. Distal RCA 30-40%. LVEDP 15, underwent a proximal RCA PCI with a 3.5 x 18 mm [place] drug-eluting stent. Family History Cancer Diabetes mellitus Gallbladder disease Heart disease Hypertension Stroke Social History Smoking Status: Never Smoker Drug Use: none Marital Status: Occupational Status: retired Allergies Coded Allergies: Clindamycin (Verified Allergy, Intermediate, Rash, 10/12/17) Penicillins (Verified Allergy, Unknown, 10/12/17) Sulfa Antibiotics (Verified Allergy, Unknown, HIVES, 10/12/17) PER YUNIOR REYNOLDS (SHE SPOKE WITH PATIENT) Home Medications Scheduled Aspirin (Aspirin EC Low Dose), 81 MG PO QAM Atorvastatin (Lipitor), 80 MG PO QPM Clopidogrel Bisulfate (Clopidogrel), 75 MG PO QAM Docusate Sodium (Docusate Sodium), 300 MG PO QPM Doxazosin Mesylate (Doxazosin Mesylate), 4 MG PO QAM Finasteride (Finasteride), 5 MG PO QPM Folic Acid (Folvite), 1 MG PO DAILY Insulin Glargine (Lantus), 25 UNITS SC QPM Insulin Lispro (Human) (Humalog), 1 DOSE SC ACHS Levothyroxine Sodium (Levothyroxine Sodium), 25 MCG PO DAILY Losartan Potassium (Cozaar), 100 MG PO QAM Lutein-Zeaxanthin (Lutein), 1 CAP PO DAILY Magnesium (Magnesium 250 mg), 250 MG PO DAILY Metoprolol Tartrate (Lopressor) (Lopressor), 100 MG PO BID Multivitamin (Multivitamin), 1 TABLET PO DAILY Pyridoxine (Vitamin B6), 100 MG PO DAILY Silodosin (Rapaflo), 8 MG PO PM Warfarin Sodium (Warfarin Sodium), 2.5 MG PO 2XWK Warfarin Sodium (Warfarin Sodium), 5 MG PO 5XWK Scheduled PRN Nitroglycerin (Nitrostat), 0.4 MG UT UD PRN for Chest Pain Review of Systems Constitutional: No fever, No chills, No sweats Eyes: No worsening of vision ENT: No hearing loss, No unusual epistaxis, No nasal symptoms Respiratory: No cough, No sputum, No wheezing Cardiovascular: No chest pain, No orthopnea, No PND Abdomen: No pain, No nausea, No vomiting Musculoskeletal: + problem reported (Neck pain) Genitourinary - Male: No hematuria, No dysuria Neurologic: + problem reported (Acute aphasia ), No memory loss, No paralysis Psychiatric: No depression symptoms Endocrine: No fatigue Hematologic / Lymphatic: No abnormal bleeding/bruising Integumentary: No rash Allergic / Immunologic: No environmental allergies, No seasonal allergies Physical Exam Vital Signs Date Time Temp Pulse Resp B/P (MAP) Pulse Ox O2 Delivery O2 Flow Rate FiO2 10/21/17 16:20 64 18 132/64 97 Room Air 10/21/17 15:14 70 10/21/17 14:50 95 Room Air 10/21/17 14:50 36.7 66 18 141/69 95 Room Air General Appearance: WD/WN, no apparent distress Head: normocephalic Eyes: normal inspection ENT: normal ENT inspection, pharynx normal Neck: supple, no JVD Respiratory/Chest: chest non-tender, lungs clear, normal breath sounds Cardiovascular: regular rate, rhythm, no edema, no gallop Abdomen/GI: normal bowel sounds, non tender, soft Back: normal inspection, no CVA tenderness Extremities/Musculoskelatal: normal inspection, no calf tenderness, normal capillary refill 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, no motor/sensory deficits, alert, oriented x 3 Skin: normal color Diagnostics Laboratory Results Results Past 24 Hours Test 10/21/17 14:50 10/21/17 15:34 Range/Units White Blood Count 6.05 4.8-10.8 K/uL Red Blood Count 3.86 4.7-6.1 M/uL Hemoglobin 13.3 14.0-18.0 g/dL Hematocrit 37.4 42-52 % Mean Corpuscular Volume 96.9 80-100 fL Mean Corpuscular Hemoglobin 34.5 25-34 pg Mean Corpuscular Hemoglobin Concent 35.6 32-36 g/dl RDW Standard Deviation 42.5 36.4-46.3 fL RDW Coefficient of Variation 12.1 11.5-14.5 % Platelet Count 185 130-400 K/uL Mean Platelet Volume 9.7 7.4-10.4 fL Prothrombin Time 18.0 9.0-12.0 SECONDS Prothromb Time International Ratio 1.7 0.9-1.1 Activated Partial Thromboplast Time 31.8 21.0-31.0 SECONDS Partial Thromboplastin Ratio 1.2 Sodium Level 137 136-145 mmol/L Potassium Level 4.5 3.5-5.1 mmol/L Chloride Level 104 98-107 mmol/L Carbon Dioxide Level 26 21-32 mmol/L Anion Gap 7.0 19.0 16-25 mmol/L Blood Urea Nitrogen 20 7-18 mg/dl Creatinine 1.38 0.60-1.40 mg/dl Est Creatinine Clear Calc Drug Dose 50.0 ml/min Estimated GFR () 57.2 Estimated GFR (Non- 49.3 BUN/Creatinine Ratio 14.6 10-20 Random Glucose 187 70-99 mg/dl Calcium Level 8.4 8.5-10.1 mg/dl Total Bilirubin 0.6 0.2-1 mg/dl Aspartate Amino Transf (AST/SGOT) 31 15-37 U/L Alanine Aminotransferase (ALT/SGPT) 39 12-78 U/L Alkaline Phosphatase 60 45-117 U/L Total Protein 6.4 6.4-8.2 gm/dl Albumin 3.5 3.4-5.0 gm/dl Globulin 2.9 2.5-4.0 gm/dl Albumin/Globulin Ratio 1.2 0.9-2 Bedside Hemoglobin 12.6 14.0-18.0 g/dl Bedside Hematocrit 37 42-52 % Bedside Sodium 137 135-144 mEq/L Bedside Potassium 4.1 3.3-5.0 mEq/L Bedside Chloride 100 101-112 mEq/L Bedside Total CO2 24 24-31 mEq/l Bedside Blood Urea Nitrogen 22 7-18 mg/dl Bedside Creatinine 1.3 0.6-1.3 mg/dl Bedside Glucose (other) 236 70-99 mg/dl Bedside Ionized Calcium ([place]) 1.13 1.12-1.32 mmol/l Diagnostic Radiology CT head: no acute abnormalities EKG Sinus, previous inferior ND - no acute changes Impression Assessment and Plan 76 y/o M Hx Factor V Leiden mutation - previous DVT/PE, HTN, HPL, BPH, CVA, DM II. Recent admission for NSTEMI 10/12. 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 He presented to the ER, although his aphasia had resolved at the time of arrival. He does complain of neck pain on admission. He denies CP or SOB. He has not had unilateral weakness, numbness or visual changes. 1) TIA - the pt is anticoagulated with Coumadin, takes daily ASA and a daily Statin. 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 It is unlikely that we would provide additional medications and he is not a candidate for TPA. As the pt has neck pain, he is pending a vascular study to r/o dissection. If the study is negative, he may elect to return home. We will keep him for monitoring otherwise. 2) DM II - placed on a SS 3) HTN - BP meds held in setting of TIA 4) Factor V mutation - cont Coumadin - he is slightly subtherapeutic with an INR of 1.7 on arrival. We will provide an additional 5mg this aurelio. Full code - Coumadin prophylaxis Total time for this admit including review of labs, meds, imaging. records - discussion with pt, and ER attending - 38 min Resuscitation Status VTE Prophylaxis Will order VTE Prophylaxis: Yes
[2017-10-21] MEDS ORDERED: OPTIRAY 320 IV PRN (19:00)
[2017-10-21] MEDS ORDERED: PHARMACIST DISCHARGE MED REC CONSULT PRN (19:15)
[2017-10-21] MEDS ORDERED: WARFARIN SOD 5 MG TAB PO SCH (19:15)
--- NOTE | 2017-10-21 20:18 | DIAGNOSTIC IMAGING REPORT ---
CT ANGIOGRAM OF THE BRAIN; CT ANGIOGRAM OF THE NECK CLINICAL HISTORY: Transient ischemic attack. Neck pain. COMPARISON STUDY: Unenhanced CT scan of the brain dated 10/21/2017. CT angiogram of the head and neck dated 02/19/2015. TECHNIQUE: Following the IV administration of 119 of Optiray 320, CT angiogram of the head and neck was performed from the aortic arch to the vertex. Images are reviewed in the axial, sagittal, and coronal planes. 3-D MIPS images are created and assessed. IV contrast was administered without complication. All measurements were calculated based on NASCET criteria. A dose lowering technique was utilized adhering to the principles of ALARA. CT DOSE: 494.48 mGy.cm FINDINGS: Brain parenchyma: There are age-related involutional changes noting mild patchy subcortical and periventricular microangiopathic disease. There is no hemorrhage, mass effect, or evidence of acute territorial ischemia by CT criteria. There is no evidence of enhancing mass lesion on the angiogram phase images. The ventricles, sulci, and cisterns are prominent secondary to involutional change. Carrillo-white matter differentiation is preserved. No extra-axial fluid collection is seen. Thoracic aorta: There is atherosclerotic calcification of the imaged portions of the thoracic aorta. The visualized thoracic aorta is normal in caliber and the arch demonstrates standard 3-vessel anatomy. Right carotid arterial system: The right common carotid artery is widely patent, as are the right internal and external carotid arteries. There is atherosclerotic calcification of the carotid bulb. Left carotid arterial system: The left common carotid artery is widely patent, as are the left internal and external carotid arteries. There is evidence carotid calcification of the left carotid bulb. 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 This is immediately reconstituted, and the remainder of the left vertebral artery is patent. The right vertebral artery is patent throughout. The right vertebral artery is dominant. Subclavian arteries: Widely patent bilaterally. Intracranial vasculature: There is origin of both posterior cerebral arteries. After carotid calcification is noted in the cavernous carotid and vertebral arteries. There is slightly greater then 50% stenosis of the petrous portion of the left internal carotid artery seen on axial image #343. The internal carotid arteries at the skull base are otherwise widely patent, as are the anterior and middle cerebral arteries bilaterally. The vertebrobasilar system is patent, as are the posterior cerebral arteries. The basilar artery is diminutive with atherosclerotic irregularity. The right vertebral artery is dominant. There is no aneurysm or focal vessel cut off seen throughout the intracranial circulation. Jugular veins: Widely patent bilaterally. Dural sinuses: Patent. Orbits: The bony orbits are intact. Orbital contents are normal as visualized. Lung apices: Partially visualized upper lobe lung parenchyma appears clear. Soft tissues: The visualized pharyngeal soft tissues are normal in appearance noting angiographic phase technique. The oropharyngeal airway appears widely patent. The salivary and thyroid glands are normal in appearance. No cervical lymphadenopathy is seen. Skeletal structures: The skeletal structures are osteopenic. The calvarium is normal in appearance. The cervical spine appears intact noting multilevel spondylosis. Sinuses and mastoids: There is trace mucosal thickening within the maxillary antra. The paranasal sinuses are otherwise clear. There is a trace right mastoid effusion. The left mastoid air cells are well pneumatized. IMPRESSION: 1. There is no hemorrhage, mass effect, or evidence of acute territorial ischemia by CT criteria. 2. 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 This is immediately reconstituted and the remainder of the vessel is patent. This is of indeterminate chronicity but is new from the 2015 examination. 3. 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 This has progress from the 2015 examination. 4. The carotid arteries are otherwise widely patent bilaterally, as is the right vertebral artery. 5. No aneurysm is seen. 6. There is atherosclerotic irregularity of the basilar artery. Electronically signed by: Jalen Taylor M.D. 10/21/2017 8:17 PM Dictated Date/Time: 10/21/2017 8:02 PM
[2017-10-21] MEDS ORDERED: DOCUSATE SODIUM 100 MG CAP PO SCH (21:00)
[2017-10-21] MEDS ORDERED: ATORVASTATIN 40 MG TAB PO SCH (21:00)
[2017-10-21] MEDS ORDERED: INSULIN GLARGINE SOLOSTAR 100 UNITS/ML 3 ML PEN SC SCH (21:00)
[2017-10-21] MEDS ORDERED: FINASTERIDE 5 MG TAB PO SCH (21:00)
[2017-10-21] MEDS ORDERED: ENOXAPARIN 1.5 MG/KG SQ SCH (23:30)
[2017-10-21] MEDS ORDERED: WARFARIN SOD 7.5 MG TAB PO STA (23:33)
[2017-10-21] MEDS ORDERED: ENOXAPARIN 150 MG/1ML SYR SQ STA (23:34)
[2017-10-21 23:44] VITALS: BP 149/82; PULSE 85; O2SAT 96
[2017-10-22 06:07] LABS: HEMOGLOBIN A1C 7.4 % (4.5-5.6)
[2017-10-22] MEDS ORDERED: LEVOTHYROXINE 25 MCG TAB PO SCH (07:00)
[2017-10-22] MEDS ORDERED: CLOPIDOGREL BISULFATE 75 MG TAB PO SCH (09:00)
[2017-10-22] MEDS ORDERED: PYRIDOXINE HCL 50 MG TAB PO SCH (09:00)
[2017-10-22] MEDS ORDERED: ASPIRIN 81 MG ECTAB PO SCH (09:00)
[2017-10-22] MEDS ORDERED: DOXAZosin MESYLATE TAB 4 MG TAB PO SCH (09:00)
[2017-10-22] MEDS ORDERED: WARFARIN SOD 5 MG TAB PO SCH (16:00)
== END 2017-10-21 23:45 | disposition home or self-care (01) ==
LOC: EDBD 14:45 → C.EDA 14:46
DX: G45.9 Transient cerebral ischemic attack, unspecified (principal); R79.1 Abnormal coagulation profile; M54.2 Cervicalgia; E11.9 Type 2 diabetes mellitus without complications; I10 Essential (primary) hypertension; E78.5 Hyperlipidemia, unspecified; I44.0 Atrioventricular block, first degree; I25.2 Old myocardial infarction; Z95.5 Presence of coronary angioplasty implant and graft; Z86.73 Personal history of transient ischemic attack (TIA), and cerebral infarction without residual deficits; Z79.01 Long term (current) use of anticoagulants; Z79.82 Long term (current) use of aspirin; Z79.4 Long term (current) use of insulin; Z79.899 Other long term (current) drug therapy; Z86.718 Personal history of other venous thrombosis and embolism; Z86.711 Personal history of pulmonary embolism; Z82.49 Family history of ischemic heart disease and other diseases of the circulatory system; Z82.3 Family history of stroke; Z88.0 Allergy status to penicillin; Z88.1 Allergy status to other antibiotic agents; Z88.2 Allergy status to sulfonamides

== ENCOUNTER → 2017-12-28 | Outpatient (CLI) | payer OTHER, BC ==
[~2017-12-28] MED LIST changes: +ATOR-26 PO; -LPT40 PO; -LVNIS100 SQ; -METO50TA16 PO; -RPF/8 PO; +SILO8CAP3 PO
[2017-12-28 13:20] LABS: HEMOGLOBIN A1C 7.1 % (4.5-5.6)
[2017-12-28 17:46] LABS: BLOOD UREA NITROGEN 20 mg/dl (7-18); CREATININE 1.29 mg/dl (0.60-1.40)
== END | disposition home or self-care (01) ==
LOC: C.LABBFT 10:58
PROVIDERS: ATTEND Nurse Practitioner Adult Health
DX: E10.29 Type 1 diabetes mellitus with other diabetic kidney complication (principal); Z79.4 Long term (current) use of insulin; R31.29 Other microscopic hematuria

== ENCOUNTER 2018-08-12 14:49 | Inpatient (IN) ==
--- NOTE | 2018-08-12 15:15 | CT Scan Report ---
CT head/brain wo con CLINICAL HISTORY: 77 years-old Male with Stroke evaluation . Acute strokelike symptoms TECHNIQUE: Multiple axial CT images of the head were obtained without contrast. A dose lowering tech nique was utilized adhering to the principles of ALARA. CT DOSE: 537.48 mGy.cm COMPARISON: CT head 10/21/2017. FINDINGS: No acute intracranial hemorrhage, midline shift, intracranial mass, hydrocephalus, territorial ischem ia or abnormal extra-axial collection. Age-related involutional changes with ex vacuo ventriculomegal y. Mild degree of ill-defined low-attenuation about the white matter suggestive of chronic microvascu lar ischemic changes. Cerebral vascular calcifications are noted. The calvarium is intact. The paranasal sinuses, mastoid air cells, and middle ear cavities are clear . IMPRESSION: No acute intracranial abnormality. The above report was generated using voice recognition software. It may contain grammatical, syntax o r spelling errors. Electronically signed by: Sadiq Morin M.D. 08/12/2018 3:13 PM
[2018-08-12 15:31] LABS: Basophils # (auto) 0.02 K/uL (0-0.2); Basophils % (auto) 0.4 %; Eosinophils # (auto) 0.05 K/uL (0-0.5); Eosinophils % (auto) 0.9 %; Hematocrit (blood only) 44.7 % (42-52); Hemoglobin 15.9 g/dL (14.0-18.0); Immature Granulocytes # (auto) 0.01 K/uL (0.00-0.02); Immature Granulocytes % (auto) 0.2 %; Lymphocytes # (auto) 1.56 K/uL (1.2-3.4); Lymphocytes % (auto) 28.5 %; Mean Corpuscular Hgb Conc 35.6 g/dL (32-36); Mean Corpuscular Volume 99.1 fL (80-100); Mean Platelet Volume 10.4 fL (7.4-10.4); Monocytes # (auto) 0.51 K/uL (0.11-0.59); Monocytes % (auto) 9.3 %; Neutrophils # (auto) 3.33 K/uL (1.4-6.5); Neutrophils % (auto) 60.7 %; Platelet Count 142 K/uL (130-400); RDW Coefficient of Variation 12.3 % (11.5-14.5); RDW Standard Deviation 44.7 fL (36.4-46.3); Red Blood Count 4.51 M/uL (4.7-6.1); White Blood Count 5.48 K/uL (4.8-10.8)
[2018-08-12 15:45] LABS: INR 2.7 (0.9-1.1); Partial Thromboplastin Ratio 1.3; Partial Thromboplastin Time 34.2 Seconds (21.0-31.0); Prothrombin Time 25.4 Seconds (9.0-12.0)
[2018-08-12] MEDS ORDERED: SODIUM CHLORIDE 0.9% 1000ML 1,000 ML IV SCH (15:45)
[2018-08-12 15:50] LABS: Alanine Aminotransferase 55 U/L (12-78); Albumin Level 4.1 gm/dl (3.4-5.0); Aspartate Aminotransferase 30 U/L (15-37); BUN Creatinine Ratio 15.3 (10-20); Blood Urea Nitrogen 19 mg/dl (7-18); Calcium 9.4 mg/dl (8.5-10.1); Carbon Dioxide 28 mmol/L (21-32); Chloride 101 mmol/L (98-107); Creatinine Clr Calc Pharmacy 53.9 ml/min; Est GFR (African American) 63.3; Est GFR (Non-African American) 54.7; Glucose 216 mg/dl (70-99); Magnesium 2.1 mg/dl (1.8-2.4); Potassium 4.1 mmol/L (3.5-5.1); Sodium 137 mmol/L (136-145)
[2018-08-12 15:54] LABS: Albumin Globulin Ratio 1.2 (0.9-2); Alkaline Phosphatase 75 U/L (45-117); Bilirubin,Total 1.1 mg/dl (0.2-1); Globulin 3.5 gm/dl (2.5-4.0); Total Protein 7.6 gm/dl (6.4-8.2); Troponin I < 0.015 ng/ml (0-0.045)
[2018-08-12] MEDS ORDERED: OPTIRAY 320 125ml IV PRN (16:19)
--- NOTE | 2018-08-12 16:44 | CT Scan Report ---
HEAD & NECK CTA HISTORY: Stroke symptoms. TECHNIQUE: Multiaxial CT images of the head were performed following the intravenous administration o f contrast to evaluate the major cerebral vessels. Multiaxial CT images of the neck were also perform ed following the intravenous administration of contrast to evaluate the major cervical vessels. Maxim um intensity projection images were also obtained. A dose lowering technique was utilized adhering to the principles of ALARA. COMPARISON: Head CT 08/12/2018. FINDINGS: There is no mass, hematoma, midline shift, or acute infarct. Moderate focal stenosis within the mid b asilar artery best seen on image 51 of approximately 60%. The proximal and distal basilar artery are patent. Bilateral hotel desk clerk are fed primarily through the posterior communicating arteries. This is consid ered to be a normal variant. There is also focal stenosis within the petrous segment of the left inte rnal carotid artery best seen on image 37. The stenosis is approximately 60% area no significant sten osis within the intracranial right internal carotid artery. No significant stenosis, occlusion, or an eurysm within the bilateral ACAs, MCAs, or hotel desk clerk. The major dural venous sinuses appear patent. The aortic arch and proximal great vessels are widely patent. Moderate focal narrowing within the m id left vertebral artery due to mass effect from the osteophytes encroaching on the vertebral canal a t the C5-C6 level. Otherwise, the remaining left vertebral artery, right vertebral artery, bilateral common carotid arteries, and cervical portions of the bilateral internal carotid arteries are patent. There is moderate calcified plaque within the bilateral carotid bifurcations. Multiple intermediate to low density nodules identified at the lingual tonsils. Dominant nodule measures 1.5 cm. IMPRESSION: 1. 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 2. Focal stenosis of approximately 60% at the petrous segment of the left internal carotid artery. 3. Focal moderate narrowing of the mid left vertebral artery due to mass effect from the adjacent ost eophytes at the C5-C6 level. 4. Multiple intermediate to low density nodules identified within the lingual tonsils. The largest me asures 1.5 cm. Direct visualization recommended for further evaluation. Electronically signed by: Matthew Marina M.D. 08/12/2018 4:43 PM
--- NOTE | 2018-08-12 16:44 | CT Scan Report ---
HEAD & NECK CTA HISTORY: Stroke symptoms. TECHNIQUE: Multiaxial CT images of the head were performed following the intravenous administration o f contrast to evaluate the major cerebral vessels. Multiaxial CT images of the neck were also perform ed following the intravenous administration of contrast to evaluate the major cervical vessels. Maxim um intensity projection images were also obtained. A dose lowering technique was utilized adhering to the principles of ALARA. COMPARISON: Head CT 08/12/2018. FINDINGS: There is no mass, hematoma, midline shift, or acute infarct. Moderate focal stenosis within the mid b asilar artery best seen on image 51 of approximately 60%. The proximal and distal basilar artery are patent. Bilateral web content & social media manager are fed primarily through the posterior communicating arteries. This is consid ered to be a normal variant. There is also focal stenosis within the petrous segment of the left inte rnal carotid artery best seen on image 37. The stenosis is approximately 60% area no significant sten osis within the intracranial right internal carotid artery. No significant stenosis, occlusion, or an eurysm within the bilateral ACAs, MCAs, or web content & social media manager. The major dural venous sinuses appear patent. The aortic arch and proximal great vessels are widely patent. Moderate focal narrowing within the m id left vertebral artery due to mass effect from the osteophytes encroaching on the vertebral canal a t the C5-C6 level. Otherwise, the remaining left vertebral artery, right vertebral artery, bilateral common carotid arteries, and cervical portions of the bilateral internal carotid arteries are patent. There is moderate calcified plaque within the bilateral carotid bifurcations. Multiple intermediate to low density nodules identified at the lingual tonsils. Dominant nodule measures 1.5 cm. IMPRESSION: 1. 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 2. Focal stenosis of approximately 60% at the petrous segment of the left internal carotid artery. 3. Focal moderate narrowing of the mid left vertebral artery due to mass effect from the adjacent ost eophytes at the C5-C6 level. 4. Multiple intermediate to low density nodules identified within the lingual tonsils. The largest me asures 1.5 cm. Direct visualization recommended for further evaluation. Electronically signed by: Matthew Marina M.D. 08/12/2018 4:43 PM
[2018-08-12] MEDS ORDERED: ASPIRIN CHEW 324 MG PO STA (17:03)
[2018-08-12] MEDS ORDERED: ASPIRIN 81 MG CHEW ONE (17:32)
--- NOTE | 2018-08-12 17:58 | History & Physical Report ---
Date of Service August 12, 2018 Assessment & Plan (1) CVA (cerebral vascular accident): 76 y/o M Hx Factor V Leiden mutation - previous DVT/PE, HTN, HPL, hypothyroid, BPH, CVA, DM II, CAD - NSTEMI 10/2017. The pt had a nuclear stress test today and following the test developed slurred, R sided weakness and an unsteady gait. His phoned the nurse to alert her of the symptoms and inquire if they might be a side effect of the medications which were administered. She was directed to bring him to the ER for evaluation. A stroke alert was called on arrival as his symptoms persisted. He is not a candidate for TPA as he takes Coumadin. His INR is therapeutic on admission. A CTA demonstrated cerebrovascular disease including 60% focal stenosis at the mid basilar artery and 60% stenosis at the petrous segment of the left internal carotid artery. No acute abnormalities were present on a noncontrast CT of the head. 1) CVA - Admitted with a CVA protocol. MRI and neuro consult pending. He was evaluated by telestroke who have advised on ading low dose ASA to his Plavix and Coumadin. He may need a carotid doppler to determine if his stenosis requires evaluation by vascular. Neurochecks are scheduled Q2H. Antihypertensives presently held. Pt and are aware of increased bleeding risk with antiplatelet agents and anticoagulation. He takes high-dose Lipitor daily. Regarding any aspiration risk - he passed a bedside swallow eval. He was recently worked up for dysphagia and did not have any aspiration issue. He is scheduled for additional workup for GERD although it was not clear what test 2) Factor V Leiden, prior DVT/PE - cont Coumadin - INR is therapeutic 3) CAD - no evidence of ACS - stress result from earlier pending. ASA, plavix, statin provided. 4) DM II - placed on a SS 5) HTN - meds held due to acute CVA 6) Hypothyroid - cont Synthroid 7) BPH - cont Silodosin, Finasteride Full code - Anticoagulated with Coumadin Total time for this admit including review of labs, meds, imaging, records - discussion with pt, , ER attending - 41 min Present on Admission?: Yes History of Present Illness Chief Complaint: Acute R weakness, unsteady gait, slurred speech Primary Care Provider: Sheng Sherman MD 76 y/o M Hx Factor V Leiden mutation - previous DVT/PE, HTN, HPL, hypothyroid, BPH, CVA, DM II, CAD - NSTEMI 10/2017. The pt had a nuclear stress test today and following the test developed slurred, R sided weakness and an unsteady gait. His phoned the nurse to alert her of the symptoms and inquire if they might be a side effect of the medications which were administered. She was directed to bring him to the ER for evaluation. A stroke alert was called on arrival as his symptoms persisted. He is not a candidate for TPA as he takes Coumadin. His INR is therapeutic on admission. A CTA demonstrated cerebrovascular disease including 60% focal stenosis at the mid basilar artery and 60% stenosis at the petrous segment of the left internal carotid artery. No acute abnormalities were present on a noncontrast CT of the head. 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 Family: Early CAD and Factor V Leiden mutation Allergies Allergy/AdvReac Type Severity Reaction Status Date / Time clindamycin Allergy Intermediate Rash Verified 08/12/18 15:19 Penicillins Allergy Unknown Verified 08/12/18 15:19 Sulfa (Sulfonamide Allergy Unknown HIVES Verified 08/12/18 15:19 Antibiotics) Home Medications Home Medications Medication Instructions Recorded Confirmed Type multivitamin 1 tab PO DAILY #0 11/28/08 08/12/18 History nitroglycerin [Nitrostat] 0.4 mg UT UD PRN #0 11/28/08 08/12/18 History silodosin 8 mg PO QPM #0 08/21/14 08/12/18 History docusate sodium 300 mg PO QPM #0 cap 01/19/17 08/12/18 History levothyroxine 25 mcg PO DAILY #0 01/19/17 08/12/18 History lutein-zeaxanthin 1 cap PO DAILY #0 01/19/17 08/12/18 History magnesium 250 mg PO DAILY #0 01/19/17 08/12/18 History doxazosin 4 mg PO QAM #0 09/22/17 08/12/18 History finasteride 5 mg PO QPM #0 09/22/17 08/12/18 History folic acid 1 mg PO DAILY #0 tab 09/22/17 08/12/18 History insulin glargine [Lantus Solostar 25 unit SUBCUT QPM #0 09/22/17 08/12/18 History U-100 Insulin] insulin lispro [Humalog KwikPen 0 unit SUBCUT ACHS #0 09/22/17 08/12/18 History Insulin] losartan 100 mg PO DAILY #0 09/22/17 08/12/18 History pyridoxine (vitamin B6) 100 mg PO DAILY #0 tab 09/22/17 08/12/18 History warfarin 2.5 mg PO WK #0 tab 09/22/17 08/12/18 History warfarin 5 mg PO 6XWK #0 09/22/17 08/12/18 History atorvastatin 80 mg PO HS #0 10/21/17 08/12/18 History clopidogrel 75 mg PO DAILY 08/12/18 08/12/18 History Past Med/Surg History Medical History Acquired claw toe of left foot (Acute) Acquired claw toe of right foot (Acute) Acquired hallux valgus of right foot (Acute) Callus (Acute) Hallux valgus (acquired), left foot (Acute) 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) Hypertension (Chronic) Hyperlipemia (Chronic) Social History Feels Safe at Home: Yes Smoking Status: Never smoker Review of Systems Gen: Denies fevers, night sweats, rigors, fatigue, malaise, weight loss/gain ENT: Denies congestion, throat pain, hearing loss Eyes: Reports some blurred vision earlier in day CV: Denies CP, palpitations Pulmonary: Denies SOB, cough, wheezing GI: Denies N/V, diarrhea, constipation Neuro: Unsteady gait, slurred speech, weakness as per HPI Musculoskeletal: Denies joint pain, inflammation Endocrine: Denies polydipsia, polyuria Skin: Denies acute rashes or ulcers Physical Exam Vital Signs (Past 24 Hours): Last Vital Signs Temp 36.5 C 08/12/18 14:52 Pulse 63 08/12/18 17:36 Resp 16 08/12/18 17:36 BP 180/106 H 08/12/18 17:36 Pulse Ox 97 08/12/18 17:36 Physical Exam: General: AAO x 3, no distress ENT: No erythema or exudates, no thrush Eyes: NEELIMA, EOMI Head and neck: Normocephalic, atraumatic, No JVD, neck is supple. Chest/heart: Nontender, S1,2, RRR, no murmurs, no gallops Lungs: CTAB, no wheezing or crackles Abdomen: Nontender, nondistended, BS+ Neuro: There is slight slurring of speech although he does not appear to have difficulty with word finding. There is a pronator drift on the R with good distal strength BL, lower ext strength is maintained, coordination is maintained. Musculoskeletal: No joint inflammation, muscle tenderness, FROM Skin: No acute rashes or ulcers, facial erythema is present. Extremities: No clubbing, cyanosis, edema Results & Data Diagnostic Findings CTA: 1. 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 2. Focal stenosis of approximately 60% at the petrous segment of the left internal carotid artery. 3. Focal moderate narrowing of the mid left vertebral artery due to mass effect from the adjacent osteophytes at the C5-C6 level. 4. Multiple intermediate to low density nodules identified within the lingual tonsils. The largest measures 1.5 cm. Direct visualization recommended for further evaluation.
[2018-08-12] MEDS ORDERED: ONDANSETRON INJ 2 MG/ML 2 ML VIAL IV PRN (19:23)
[2018-08-12] MEDS ORDERED: POLYETHYLENE (MIRALAX) 17 GM PACK PO PRN (19:23)
[2018-08-12] MEDS ORDERED: ACETAMINOPHEN 325 MG TAB PO PRN (19:23)
[2018-08-12] MEDS ORDERED: ALUMINUM/MAGNESIUM SUSP 30 ML UDC PO PRN (19:23)
[2018-08-12] MEDS ORDERED: PHARMACIST DISCHARGE MED REC CONSULT PRN (19:23)
[2018-08-12] MEDS ORDERED: MAGNESIUM HYDROXIDE SUSP 30 ML UDC PO PRN (19:23)
[2018-08-12] MEDS ORDERED: WARFARIN SOD 2.5 MG TAB PO SCH (20:00)
[2018-08-12] MEDS ORDERED: NSS + 20MEQ KCL 20 MEQ/1,000 ML BAG IV SCH (20:00)
[2018-08-12] MEDS ORDERED: GLUCOSE 10 TABS/TUBE PO PRN (20:15)
[2018-08-12] MEDS ORDERED: GLUCAGON FOR INJ 1 MG VIAL IM PRN (20:15)
[2018-08-12] MEDS ORDERED: CARBOHYDRATES FOR HYPOGLYCEMIA PO PRN (20:15)
[2018-08-12] MEDS ORDERED: GLUCOSE 40% GEL 15 GM TUBE PO PRN (20:15)
[2018-08-12] MEDS ORDERED: DEXTROSE 50% 50 ML SYRINGE IV PRN (20:15)
[2018-08-12] MEDS ORDERED: FINASTERIDE 5 MG TAB PO SCH (21:00)
[2018-08-12] MEDS ORDERED: ATORVASTATIN 40 MG TAB PO SCH (21:00)
[2018-08-12] MEDS ORDERED: INSULIN GLARGINE SOLOSTAR 100 UNITS/ML 3 ML PEN SQ SCH (21:00)
[2018-08-12] MEDS ORDERED: DOCUSATE SODIUM 100 MG CAP PO SCH (21:00)
[2018-08-12] MEDS: INSULIN ASPART 100 UNITS/ML 3 ML PEN SC SCH (21:20)
--- NOTE | 2018-08-12 22:11 | Emergency Department Note ---
Entered by Neftali Isabel acting as a scribe for History of Present Illness General Chief complaint: Stroke/CVA Symptoms Stated complaint: STROKE SYMPTOMS Time Seen by Provider: 08/12/18 14:58 Source: patient Limitations: no limitations History of Present Illness Onset (ago): hour(s) 5 Location: head Pain Consistency: + constant Quality: + constant Exacerbated By: + other (stress test) Associated symptoms: + weakness and + other (double vision, difficulties walking) The patient is a 77 year old male who presents to the Emergency Room with complaints of constant stroke-like symptoms starting 5 hours ago. The patient states he had a stress test this morning and felt wobbly after. He notes his stated he had slurred speech when he got home. He states he finished the test at 10 AM this morning. The patient states he had difficulties walking and notes he takes Coumadin. He states his last Coumadin level was 2.5. He states Dr. Lee ordered the stress test. The patient's states the patient was getting more unsteady when he got home and complained about double vision. Home Medications Home Medications Medication Instructions Recorded Confirmed Type multivitamin 1 tab PO DAILY #0 11/28/08 08/12/18 History nitroglycerin [Nitrostat] 0.4 mg UT UD PRN #0 11/28/08 08/12/18 History silodosin 8 mg PO QPM #0 08/21/14 08/12/18 History docusate sodium 300 mg PO QPM #0 cap 01/19/17 08/12/18 History levothyroxine 25 mcg PO DAILY #0 01/19/17 08/12/18 History lutein-zeaxanthin 1 cap PO DAILY #0 01/19/17 08/12/18 History magnesium 250 mg PO DAILY #0 01/19/17 08/12/18 History doxazosin 4 mg PO QAM #0 09/22/17 08/12/18 History finasteride 5 mg PO QPM #0 09/22/17 08/12/18 History folic acid 1 mg PO DAILY #0 tab 09/22/17 08/12/18 History insulin glargine [Lantus Solostar 25 unit SUBCUT QPM #0 09/22/17 08/12/18 History U-100 Insulin] insulin lispro [Humalog KwikPen 0 unit SUBCUT ACHS #0 04/18/18 03/08/19 History Insulin] losartan 100 mg PO DAILY #0 09/22/17 08/12/18 History pyridoxine (vitamin B6) 100 mg PO DAILY #0 tab 09/22/17 08/12/18 History warfarin 2.5 mg PO WK #0 tab 09/22/17 08/12/18 History warfarin 5 mg PO 6XWK #0 09/22/17 08/12/18 History atorvastatin 80 mg PO HS #0 10/21/17 08/12/18 History clopidogrel 75 mg PO DAILY 08/12/18 08/12/18 History Allergies Allergy/AdvReac Type Severity Reaction Status Date / Time clindamycin Allergy Intermediate Rash Verified 08/12/18 15:19 Penicillins Allergy Unknown Verified 08/12/18 15:19 Sulfa (Sulfonamide Allergy Unknown HIVES Verified 08/12/18 15:19 Antibiotics) Past Med/Surg History Medical History Acquired claw toe of left foot (Acute) Acquired claw toe of right foot (Acute) Acquired hallux valgus of right foot (Acute) Callus (Acute) Hallux valgus (acquired), left foot (Acute) 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 and A total of 10 systems reviewed and were otherwise negative Physical Exam Vital Signs Vital Signs - 24 hr 08/12/18 14:52 08/12/18 15:13 08/12/18 15:14 Temperature 36.5 C Temperature Source Oral Sepsis Recent Fever Within 48 Hours No Sepsis Action Taken by Nursing No Action Required Pulse Rate 72 70 Pulse Rate [Right Finger] 76 Pulse Rate from SpO2 Sensor Pulse Rhythm Regular Pulse Rhythm [Right Finger] Pulse Strength Normal Pulse Strength [Right Finger] Respiratory Rate 18 20 25 H Respiratory Effort / Characteristics Non-Labored Respiratory Depth Normal Respiratory Pattern Regular Blood Pressure 174/88 H 174/79 H Blood Pressure [Right Arm] 174/79 H Blood Pressure Mean 116 110 Blood Pressure Mean [Right Arm] 110 Blood Pressure Position Sitting Blood Pressure Position [Right Arm] Pulse Oximetry 98 98 Oxygen Delivery Method Room Air 08/12/18 15:20 08/12/18 15:27 08/12/18 15:30 Temperature Temperature Source Sepsis Recent Fever Within 48 Hours Sepsis Action Taken by Nursing Pulse Rate 74 70 Pulse Rate [Right Finger] 66 Pulse Rate from SpO2 Sensor Pulse Rhythm Pulse Rhythm [Right Finger] Pulse Strength Pulse Strength [Right Finger] Respiratory Rate 21 19 17 Respiratory Effort / Characteristics Respiratory Depth Respiratory Pattern Blood Pressure Blood Pressure [Right Arm] 174/79 H Blood Pressure Mean Blood Pressure Mean [Right Arm] 110 Blood Pressure Position Blood Pressure Position [Right Arm] Pulse Oximetry 97 Oxygen Delivery Method 08/12/18 16:00 08/12/18 17:36 08/12/18 18:40 Temperature Temperature Source Sepsis Recent Fever Within 48 Hours Sepsis Action Taken by Nursing Pulse Rate 65 Pulse Rate [Right Finger] 63 Pulse Rate from SpO2 Sensor 65 Pulse Rhythm Pulse Rhythm [Right Finger] Regular Pulse Strength Pulse Strength [Right Finger] Normal Respiratory Rate 15 16 Respiratory Effort / Characteristics Non-Labored Respiratory Depth Normal Respiratory Pattern Regular Blood Pressure Blood Pressure [Right Arm] 180/106 H 204/64 H Blood Pressure Mean Blood Pressure Mean [Right Arm] 130 110 Blood Pressure Position Blood Pressure Position [Right Arm] Lying Pulse Oximetry 96 97 Oxygen Delivery Method 08/12/18 18:46 08/12/18 19:27 Temperature 36.3 C L Temperature Source Oral Sepsis Recent Fever Within 48 Hours Sepsis Action Taken by Nursing Pulse Rate 63 Pulse Rate [Right Finger] 66 Pulse Rate from SpO2 Sensor Pulse Rhythm Pulse Rhythm [Right Finger] Regular Pulse Strength Pulse Strength [Right Finger] Normal Respiratory Rate 18 16 Respiratory Effort / Characteristics Non-Labored Respiratory Depth Normal Respiratory Pattern Regular Blood Pressure 178/67 H Blood Pressure [Right Arm] 156/77 H Blood Pressure Mean Blood Pressure Mean [Right Arm] 103 Blood Pressure Position Blood Pressure Position [Right Arm] Sitting Pulse Oximetry 97 96 Oxygen Delivery Method Room Air Room Air GENERAL: He is oriented to person, place, and time. He appears well-developed and well-nourished. He does not appear distressed. HENT: Exam performed. - Head: Normocephalic and atraumatic. - Right Ear: External ear normal. No mastoid tenderness. - Left Ear: External ear normal. No mastoid tenderness. - Mouth/Throat: The oropharynx is clear and moist. No trismus in the jaw. No dental abscesses or uvula swelling. No oropharyngeal exudate or tonsillar abscesses. EYES: Conjunctivae and EOM are normal. Pupils are equal, round, and reactive to light. Right eye exhibits no discharge. Left eye exhibits no discharge. No scleral icterus. NECK: Normal range of motion. Neck supple. No JVD present. No spinous process tenderness present. No carotid bruit present. No rigidity. No tracheal deviation and normal range of motion present. No Brudzinski's sign and no Kernig's sign noted. CV: Normal rate, regular rhythm, normal heart sounds and intact distal pulses. There is no peripheral edema. Palpable radial pulses bue. PULM/CHEST: Effort normal and breath sounds normal. No respiratory distress. No stridor. He has no wheezes. He has no rales. - Chest Wall: He exhibits no tenderness. ABD: The abdomen is soft. Bowel sounds are normal. He has no distension. No mass is present. There is no tenderness. There is no rebound, no guarding, no Goldman's sign and no tenderness at McBurney's point. Rovsig negative. MUSC/SKEL: Normal range of motion. There is no peripheral edema, tenderness or deformity. LYMPH: No cervical adenopathy. NEURO: He is alert and oriented to person, place, and time. He has normal strength. No cranial nerve deficit or sensory deficit. Difficulty walking. Mild dysarthria. GCS eye subscore is 4. GCS verbal subscore is 4. GCS motor subscore is 6. NIHSS 3 (Dysarthria: 1 Cerebellar: 2 multiple exremeties) SKIN: Skin is warm and dry. He is not diaphoretic. PSYCH: He has a normal mood and affect. Behavior is normal. Judgment and thought content normal. Course 1459: Past medical records reviewed. The patient was evaluated in room A9B, and a complete history and physical examination were performed. Slurred speech score is 1. Cerebellar ataxia score is 2. Stroke score is 3. Stroke alert was called at this point. The patient's INR level was last checked a week ago. Last Coumadin level was 2.5. 1514: I spoke with Dr. Morin. He states the head CT was negative. The POC INR was 2.7 while the glucose showed to be 216. Dr. Morin states the patient is not a TPA candidate given the INR. 1523: I tried to call [facility] multiple times and have not received a call back. 1530: I spoke with Dr. Godwin - Neurologist. He states the patient should get a CTA of head and neck. He states the patient should obtain a MRI. The patient states he has a staple in his body and so he cannot get a MRI. Dr. Godwin states if the patient is unable to get a MRI he should be admitted but if he is able to get a MRI and a large vessel occulison is shown we should call him back. Dr. Hatfield states the patient is not a TPA candidate and states the patient should get a therapeutic INR. 1702: I spoke with [facility] tele-stroke Dr. Hatfield, CTA shows no large vessel occlusion. He suggest the patient should be admitted into the hospital and aspirin be given. No need for transfer. 1706: I reviewed the patient's case with Dr. Wang - [facility]. He will evaluate the patient for further management. Administered Medications Atorvastatin Calcium (Lipitor) 80 mg PO HS PENNY Stop: 09/11/18 20:59 Last Admin: 08/12/18 21:23 Dose: 80 mg Documented by: [id number] Docusate Sodium (Colace) 300 mg PO QPM PENNY Stop: 09/11/18 20:59 Last Admin: 08/12/18 21:21 Dose: 300 mg Documented by: [id number] Finasteride (Proscar) 5 mg PO QPM PENNY Stop: 09/11/18 20:59 Last Admin: 08/12/18 21:23 Dose: 5 mg Documented by: [id number] Potassium Chloride/Sodium Chloride (Normal Saline W/20 Meq Kcl) 20 meq in 1,000 mls @ 60 mls/hr IV .[id number] PENNY Stop: 08/13/18 12:39 Last Admin: 08/12/18 21:18 Dose: 60 mls/hr Documented by: [id number] Insulin Aspart (Novolog Flexpen) 0 units SC ACHS PENNY Stop: 09/11/18 20:59 Last Admin: 08/12/18 21:20 Dose: 4 units Documented by: [id number] Cosigned by: [id number] Insulin Glargine (Lantus Solostar Pen) 25 units SQ QPM PENNY Stop: 09/11/18 20:59 Last Admin: 08/12/18 21:21 Dose: 25 units Documented by: [id number] Cosigned by: [id number] Warfarin Sodium (Coumadin) 2.5 mg PO MoFr@1600 PENNY Stop: 09/11/18 15:59 Last Admin: 08/12/18 21:22 Dose: 2.5 mg Documented by: [id number] Discontinued Medications Aspirin (Aspirin) 324 mg PO NOW STA Stop: 08/12/18 17:04 Last Admin: 08/12/18 17:38 Dose: 324 mg Documented by: [id number] Aspirin (Aspirin Chew) Confirm Administered Dose 324 mg .ROUTE .STK-MED ONE Stop: 08/12/18 17:33 Last Admin: 08/12/18 17:37 Dose: Not Given Documented by: [id number] Sodium Chloride (Nss 1000ml) 1,000 mls @ 100 mls/hr IV .Q10H [facility] Stop: 09/11/18 15:44 Last Infusion: 08/12/18 19:42 Dose: 0 mls/hr Documented by: [id number] Admin: 08/12/18 15:47 Dose: 100 mls/hr Documented by: [id number] Ioversol (Optiray 320 125ml) 120 ml IV ONCE PRN PRN Reason: Interaction Checking Stop: 08/16/18 16:18 Last Admin: 08/12/18 16:19 Dose: 120 ml Documented by: [id number] Medical Decision Making Medical Records Attestation: I reviewed the patient's medical records. Home Medications Current Medication List: was personally reviewed by me Laboratory Data Result diagrams: 08/12/18 15:19 08/12/18 15:19 Lab Results 08/12/18 08/12/18 08/12/18 Range/Units 15:15 15:15 15:18 WBC (4.8-10.8) K/uL RBC (4.7-6.1) M/uL Hgb (14.0-18.0) g/dL Hct (42-52) % MCV (80-100) fL MCH (25-34) pg MCHC (32-36) g/dL RDW Std Deviation (36.4-46.3) fL RDW Coeff of Mary (11.5-14.5) % Plt Count (130-400) K/uL MPV (7.4-10.4) fL Immature Gran % (Auto) % Neut % (Auto) % Lymph % (Auto) % Slope % (Auto) % Eos % (Auto) % Baso % (Auto) % Immature Gran # (Auto) (0.00-0.02) K/uL Neut # (Auto) (1.4-6.5) K/uL Lymph # (Auto) (1.2-3.4) K/uL Slope # (Auto) (0.11-0.59) K/uL Eos # (Auto) (0-0.5) K/uL Baso # (Auto) (0-0.2) K/uL PT (9.0-12.0) Seconds POC INR 2.7 H (0.9-1.1) INR (0.9-1.1) APTT (21.0-31.0) Seconds PTT Ratio Sodium (136-145) mmol/L Potassium (3.5-5.1) mmol/L Chloride (98-107) mmol/L Carbon Dioxide (21-32) mmol/L Anion Gap (3-11) BUN (7-18) mg/dl Creatinine (0.6-1.4) mg/dl Est Cr Clr Drug Dosing ml/min Est GFR ( Amer) Est GFR (Non-Af Amer) BUN/Creatinine Ratio (10-20) Glucose (70-99) mg/dl POC Glucose 218 H (70-99) Calcium (8.5-10.1) mg/dl Magnesium (1.8-2.4) mg/dl Total Bilirubin (0.2-1) mg/dl AST (15-37) U/L ALT (12-78) U/L Alkaline Phosphatase (45-117) U/L Troponin I (0-0.045) ng/ml Total Protein (6.4-8.2) gm/dl Albumin (3.4-5.0) gm/dl Globulin (2.5-4.0) gm/dl Albumin/Globulin Ratio (0.9-2) Blood Type B Positive Antibody Screen NEGATIVE 08/12/18 08/12/18 08/12/18 Range/Units 15:19 15:19 15:19 WBC 5.48 (4.8-10.8) K/uL RBC 4.51 L (4.7-6.1) M/uL Hgb 15.9 (14.0-18.0) g/dL Hct 44.7 (42-52) % MCV 99.1 (80-100) fL MCH 35.3 H (25-34) pg MCHC 35.6 (32-36) g/dL RDW Std Deviation 44.7 (36.4-46.3) fL RDW Coeff of Mary 12.3 (11.5-14.5) % Plt Count 142 (130-400) K/uL MPV 10.4 (7.4-10.4) fL Immature Gran % (Auto) 0.2 % Neut % (Auto) 60.7 % Lymph % (Auto) 28.5 % Slope % (Auto) 9.3 % Eos % (Auto) 0.9 % Baso % (Auto) 0.4 % Immature Gran # (Auto) 0.01 (0.00-0.02) K/uL Neut # (Auto) 3.33 (1.4-6.5) K/uL Lymph # (Auto) 1.56 (1.2-3.4) K/uL Slope # (Auto) 0.51 (0.11-0.59) K/uL Eos # (Auto) 0.05 (0-0.5) K/uL Baso # (Auto) 0.02 (0-0.2) K/uL PT 25.4 H (9.0-12.0) Seconds POC INR (0.9-1.1) INR 2.7 H (0.9-1.1) APTT 34.2 H (21.0-31.0) Seconds PTT Ratio 1.3 Sodium 137 (136-145) mmol/L Potassium 4.1 (3.5-5.1) mmol/L Chloride 101 (98-107) mmol/L Carbon Dioxide 28 (21-32) mmol/L Anion Gap 8.0 (3-11) BUN 19 H (7-18) mg/dl Creatinine 1.26 (0.6-1.4) mg/dl Est Cr Clr Drug Dosing 53.9 ml/min Est GFR ( Amer) 63.3 Est GFR (Non-Af Amer) 54.7 BUN/Creatinine Ratio 15.3 (10-20) Glucose 216 H (70-99) mg/dl POC Glucose (70-99) Calcium 9.4 (8.5-10.1) mg/dl Magnesium 2.1 (1.8-2.4) mg/dl Total Bilirubin 1.1 H (0.2-1) mg/dl AST 30 (15-37) U/L ALT 55 (12-78) U/L Alkaline Phosphatase 75 (45-117) U/L Troponin I < 0.015 (0-0.045) ng/ml Total Protein 7.6 (6.4-8.2) gm/dl Albumin 4.1 (3.4-5.0) gm/dl Globulin 3.5 (2.5-4.0) gm/dl Albumin/Globulin Ratio 1.2 (0.9-2) Blood Type Antibody Screen 08/12/18 08/12/18 Range/Units 19:23 20:56 WBC (4.8-10.8) K/uL RBC (4.7-6.1) M/uL Hgb (14.0-18.0) g/dL Hct (42-52) % MCV (80-100) fL MCH (25-34) pg MCHC (32-36) g/dL RDW Std Deviation (36.4-46.3) fL RDW Coeff of Mary (11.5-14.5) % Plt Count (130-400) K/uL MPV (7.4-10.4) fL Immature Gran % (Auto) % Neut % (Auto) % Lymph % (Auto) % Slope % (Auto) % Eos % (Auto) % Baso % (Auto) % Immature Gran # (Auto) (0.00-0.02) K/uL Neut # (Auto) (1.4-6.5) K/uL Lymph # (Auto) (1.2-3.4) K/uL Slope # (Auto) (0.11-0.59) K/uL Eos # (Auto) (0-0.5) K/uL Baso # (Auto) (0-0.2) K/uL PT (9.0-12.0) Seconds POC INR (0.9-1.1) INR (0.9-1.1) APTT (21.0-31.0) Seconds PTT Ratio Sodium (136-145) mmol/L Potassium (3.5-5.1) mmol/L Chloride (98-107) mmol/L Carbon Dioxide (21-32) mmol/L Anion Gap (3-11) BUN (7-18) mg/dl Creatinine (0.6-1.4) mg/dl Est Cr Clr Drug Dosing ml/min Est GFR ( Amer) Est GFR (Non-Af Amer) BUN/Creatinine Ratio (10-20) Glucose (70-99) mg/dl POC Glucose 164 H 281 H (70-99) Calcium (8.5-10.1) mg/dl Magnesium (1.8-2.4) mg/dl Total Bilirubin (0.2-1) mg/dl AST (15-37) U/L ALT (12-78) U/L Alkaline Phosphatase (45-117) U/L Troponin I (0-0.045) ng/ml Total Protein (6.4-8.2) gm/dl Albumin (3.4-5.0) gm/dl Globulin (2.5-4.0) gm/dl Albumin/Globulin Ratio (0.9-2) Blood Type Antibody Screen Imaging Data Radiologist's Impression: Radiology results as stated below per my review and the radiologist's interpretation: CT head/brain wo con CLINICAL HISTORY: 77 years-old Male with Stroke evaluation . Acute strokelike symptoms TECHNIQUE: Multiple axial CT images of the head were obtained without contrast. A dose lowering technique was utilized adhering to the principles of ALARA. CT DOSE: 537.48 mGy.cm COMPARISON: CT head 10/21/2017. FINDINGS: No acute intracranial hemorrhage, midline shift, intracranial mass, hydrocephalus, territorial ischemia or abnormal extra-axial collection. Age- related involutional changes with ex vacuo ventriculomegaly. Mild degree of ill- defined low-attenuation about the white matter suggestive of chronic microvascular ischemic changes. Cerebral vascular calcifications are noted. The calvarium is intact. The paranasal sinuses, mastoid air cells, and middle ear cavities are clear. IMPRESSION: No acute intracranial abnormality. The above report was generated using voice recognition software. It may contain grammatical, syntax or spelling errors. Electronically signed by: Sadiq Morin M.D. 08/12/2018 3:13 PM HEAD & NECK CTA HISTORY: Stroke symptoms. TECHNIQUE: Multiaxial CT images of the head were performed following the intravenous administration of contrast to evaluate the major cerebral vessels. Multiaxial CT images of the neck were also performed following the intravenous administration of contrast to evaluate the major cervical vessels. Maximum intensity projection images were also obtained. A dose lowering technique was utilized adhering to the principles of ALARA. COMPARISON: Head CT 08/12/2018. FINDINGS: There is no mass, hematoma, midline shift, or acute infarct. Moderate focal stenosis within the mid basilar artery best seen on image 51 of approximately 60%. The proximal and distal basilar artery are patent. Bilateral escalator operator are fed primarily through the posterior communicating arteries. This is considered to be a normal variant. There is also focal stenosis within the petrous segment of the left internal carotid artery best seen on image 37. The stenosis is approximately 60% area no significant stenosis within the intracranial right internal carotid artery. No significant stenosis, occlusion, or aneurysm within the bilateral ACAs, MCAs, or escalator operator. The major dural venous sinuses appear patent. The aortic arch and proximal great vessels are widely patent. Moderate focal narrowing within the mid left vertebral artery due to mass effect from the o steophytes encroaching on the vertebral canal at the C5-C6 level. Otherwise, the remaining left vertebral artery, right vertebral artery, bilateral common carotid arteries, and cervical portions of the bilateral internal carotid arteries are patent. There is moderate calcified plaque within the bilateral carotid bifurcations. Multiple intermediate to low density nodules identified at the lingual tonsils. Dominant nodule measures 1.5 cm. IMPRESSION: 1. 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 2. Focal stenosis of approximately 60% at the petrous segment of the left internal carotid artery. 3. Focal moderate narrowing of the mid left vertebral artery due to mass effect from the adjacent osteophytes at the C5-C6 level. 4. Multiple intermediate to low density nodules identified within the lingual tonsils. The largest measures 1.5 cm. Direct visualization recommended for further evaluation. Electronically signed by: Matthew Marina M.D. 08/12/2018 4:43 PM ECG Data Attestation: I personally reviewed and interpreted this ECG as follows: Indication: weakness Rate (beats per minute): 70 Rhythm: sinus rhythm Findings: + other (NV interval is 224. QRS interval is within normal limits) and + 1st degree AV block; no ST depression and no ST elevation Blood Pressure Blood Pressure Findings: Elevated blood pressure Blood Pressure Disposition: further management by hospitalist KAYA Narrative 1459: Past medical records reviewed. The patient was evaluated in room A9B, and a complete history and physical examination were performed. Slurred speech score is 1. Cerebellar ataxia score is 2. Stroke score is 3. Stroke alert was called at this point. The patient's INR level was last checked a week ago. Last Coumadin level was 2.5. 1514: I spoke with Dr. Morin. He states the head CT was negative. The POC INR was 2.7 while the glucose showed to be 216. Dr. Morin states the patient is not a TPA candidate given the INR. 1523: I tried to call [facility] multiple times and have not received a call back. 1530: I spoke with Dr. Godwin - Neurologist. He states the patient should get a CTA of head and neck. He states the patient should obtain a MRI. The patient states he has a staple in his body and so he cannot get a MRI. Dr. Godwin states if the patient is unable to get a MRI he should be admitted but if he is able to get a MRI and a large vessel occulison is shown we should call him back. Dr. Hatfield states the patient is not a TPA candidate and states the patient should get a therapeutic INR. 1702: I spoke with [facility] tele-stroke Dr. Hatfield, CTA shows no large vessel occlusion. He suggest the patient should be admitted into the hospital and aspirin be given. No need for transfer. 1706: I reviewed the patient's case with Dr. Wang - [facility]ist. He will evaluate the patient for further management. Impression & Plan CVA (cerebral vascular accident) Discharge Plan Visit Data *Final* Discharge Date/Time: 08/12/18 18:46 Chief Complaint: Stroke/CVA Symptoms Stated Complaint: STROKE SYMPTOMS ED Provider: Colin Costa Discharge Problem: CVA (cerebral vascular accident) Patient Disposition: Being Evaluated by Hospitalist Discharge Instructions Interventions: ED Discharge Assessment Last Done: 08/12/18 18:46 Discharge Problem: CVA (cerebral vascular accident) Qualifiers: CVA mechanism: unspecified Qualified Code(s): I63.9 - Cerebral infarction, unspecified The scribe's documentation has been prepared under my direction and personally reviewed by me in its entirety. I confirm that the note above accurately reflects all work, treatment, procedures, and medical decision making performed by me.
[2018-08-13 06:25] LABS: Basophils # (auto) 0.01 K/uL (0-0.2); Basophils % (auto) 0.2 %; Eosinophils # (auto) 0.11 K/uL (0-0.5); Eosinophils % (auto) 2.1 %; Hematocrit (blood only) 40.3 % (42-52); Hemoglobin 14.4 g/dL (14.0-18.0); Immature Granulocytes # (auto) 0.01 K/uL (0.00-0.02); Immature Granulocytes % (auto) 0.2 %; Lymphocytes # (auto) 1.13 K/uL (1.2-3.4); Lymphocytes % (auto) 21.6 %; Mean Corpuscular Hgb Conc 35.7 g/dL (32-36); Mean Corpuscular Volume 99.5 fL (80-100); Monocytes # (auto) 0.57 K/uL (0.11-0.59); Monocytes % (auto) 10.9 %; Neutrophils # (auto) 3.41 K/uL (1.4-6.5); Platelet Count 123 K/uL (130-400); RDW Coefficient of Variation 12.4 % (11.5-14.5); Red Blood Count 4.05 M/uL (4.7-6.1); White Blood Count 5.24 K/uL (4.8-10.8)
[2018-08-13] MEDS ORDERED: LEVOTHYROXINE SODIUM 25 MCG TABLET PO SCH (06:30)
[2018-08-13 06:40] LABS: BUN Creatinine Ratio 17.2 (10-20); Calcium 8.5 mg/dl (8.5-10.1); Creatinine Clr Calc Pharmacy 66.6 ml/min; Est GFR (African American) 81.8; Est GFR (Non-African American) 70.6; Potassium 3.6 mmol/L (3.5-5.1)
[2018-08-13] MEDS: INSULIN ASPART 100 UNITS/ML 3 ML PEN SC SCH ×3 (07:36→16:55)
[2018-08-13 08:02] LABS: Estimated Average Glucose 180 mg/dl; Hemoglobin A1C 7.9 % (4.5-5.6)
[2018-08-13] MEDS ORDERED: CLOPIDOGREL BISULFATE 75 MG TAB PO SCH (09:00)
[2018-08-13] MEDS ORDERED: ASPIRIN 81 MG ECTAB PO SCH (09:00)
[2018-08-13] MEDS ORDERED: FOLIC ACID 1 MG TAB PO SCH (09:00)
[2018-08-13] MEDS ORDERED: DOXAZosin MESYLATE 4 MG TAB PO SCH (09:00)
--- NOTE | 2018-08-13 09:36 | Neurology Consultation ---
Date of Consultation August 13, 2018 Assessment & Plan (1) CVA (cerebral vascular accident): Suspected small ischemic posterior circulation stroke or TIA. He does have very mild dysarthria this morning but otherwise has an intact neurological examination other than some sensory loss probably related to a diabetic peripheral neuropathy. He does not appear to be ataxic or have signs of a hemiparesis at this time. 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 It is difficult to determine if either of these lesions would have been clinically significant, although either 1 of them could have produced stroke or TIA like symptoms as described in his presentation. Yet, the degree of stenosis for these lesions would not appear to be hemodynamically significant under most circumstances and there was no evidence of plaque rupture with either of them. However, it is possible that the proceeding cardiac stress test was a provoking factor in the setting of these two vascular lesions. Unfortunately, it sounds like a brain MRI cannot be completed for this patient as he has a chronic abdominal surgical staple. I do not think additional neurological testing needs to be completed during this hospitalization. However, I would recommend a follow-up CT angiogram of the head and neck in 6-12 months. Unfortunately, under most circumstances, neither a mid basilar stenosis or petrous internal carotid artery stenosis would be amenable to intervention. Medical management is the preferred option and this patient should continue with atorvastatin, low-dose aspirin, Plavix, and warfarin. Clearly, he has other indications for his anticoagulant and antiplatelet therapy as well. His blood pressure has been running a little high during this hospitalization. Would recommend a systolic blood pressure goal of 140-160 mmHg during this hospitalization with further gentle reductions as medically appropriate on an outpatient basis. Consultations with PT/OT/speech therapy. Please contact me if I may be of further assistance. History of Present Illness Reason for Consultation: TIA/stroke Requesting Physician: Dr. Wang Attending Physician: Kishan Santamaria DO History of Present Illness The patient is a 77-year-old male presented with a complaint of slurred speech, right-sided weakness, and unsteady gait which began yesterday morning at home. He had had a cardiac stress test earlier that morning. He was observed to have some difficulty walking and mild dysarthria while in the emergency department. 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 His INR was 2.7 at the time of presentation and he was not considered an appropriate candidate for tPA. A CT of the head was negative for acute process. I reviewed the images as well as the radiologist's interpretation of this test. A CT angiogram of the head and neck were also completed. 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 The patient's glucose at the time of presentation was 76. His hemoglobin A1c is 7.9. Electrocardiogram reveals a sinus rhythm, 70 beats per minute. The emergency department physician discussed his case with the stroke specialist at [facility] as well who concurred that he was not an appropriate tPA candidate. It was recommended that aspirin be added to his medication regimen. He is already prescribed warfarin as above and is also prescribed Plavix in light of his history of coronary artery disease with a history of coronary stenting. Currently, the patient denies any significant, progressive, or new neurological symptoms. He believes his speech, right-sided weakness, and unsteady gait have improved. He has been up out of bed to use the commode without difficulty. Upon further questioning, he does recall having some diplopia recently while looking at objects at a distance. This symptom has not recurred. He denies headache. Allergies Allergy/AdvReac Type Severity Reaction Status Date / Time clindamycin Allergy Intermediate Rash Verified 08/12/18 15:19 Penicillins Allergy Unknown Verified 08/12/18 15:19 Sulfa (Sulfonamide Allergy Unknown HIVES Verified 08/12/18 15:19 Antibiotics) Home Medications Home Medications Medication Instructions Recorded Confirmed Type multivitamin 1 tab PO DAILY #0 11/28/08 08/12/18 History nitroglycerin [Nitrostat] 0.4 mg UT UD PRN #0 11/28/08 08/12/18 History silodosin 8 mg PO QPM #0 08/21/14 08/12/18 History docusate sodium 300 mg PO QPM #0 cap 01/19/17 08/12/18 History levothyroxine 25 mcg PO DAILY #0 01/19/17 08/12/18 History lutein-zeaxanthin 1 cap PO DAILY #0 01/19/17 08/12/18 History magnesium 250 mg PO DAILY #0 01/19/17 08/12/18 History doxazosin 4 mg PO QAM #0 09/22/17 08/12/18 History finasteride 5 mg PO QPM #0 09/22/17 08/12/18 History folic acid 1 mg PO DAILY #0 tab 09/22/17 08/12/18 History insulin glargine [Lantus Solostar 25 unit SUBCUT QPM #0 09/22/17 08/12/18 History U-100 Insulin] insulin lispro [Humalog KwikPen 0 unit SUBCUT ACHS #0 09/22/17 08/12/18 History Insulin] losartan 100 mg PO DAILY #0 09/22/17 08/12/18 History pyridoxine (vitamin B6) 100 mg PO DAILY #0 tab 09/22/17 08/12/18 History warfarin 2.5 mg PO WK #0 tab 09/22/17 08/12/18 History warfarin 5 mg PO 6XWK #0 09/22/17 08/12/18 History atorvastatin 80 mg PO HS #0 10/21/17 08/12/18 History clopidogrel 75 mg PO DAILY 08/12/18 08/12/18 History Patient History Medical History Acquired claw toe of left foot (Acute) Acquired claw toe of right foot (Acute) Acquired hallux valgus of right foot (Acute) Callus (Acute) Hallux valgus (acquired), left foot (Acute) 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) Hypertension (Chronic) Hyperlipemia (Chronic) Social History Preferred Language: Wolof Communication Ability: Effective 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 Beliefs That Will Affect Care: None Current Living Situation: Spouse Other Information That Helps Us Care for You: No Feels Safe at Home: Yes Safety Concerns: Feels Safe At This Time Smoking Status: Never smoker Hx Alcohol Use: Yes Hx Substance Use: No Review of Systems Constitutional: no fever and no chills Eyes: as per Subjective / HPI Ear, Nose, Mouth, Throat: no hearing loss Respiratory: no cough and no dyspnea Cardiovascular: no chest pain and no palpitations Gastrointestinal: no abdominal pain and no vomiting Genitourinary (Male): no dysuria and no urinary incontinence Musculoskeletal: no myalgia Integumentary: no rash and no lesions Neurologic: as per Subjective / HPI Psychiatric: no depression and no anxiety Hematologic / Lymphatic: no easy bleeding Physical Exam Vital Signs (Past 24 Hours): Last Vital Signs Temp 36.4 C L 08/13/18 07:00 Pulse 70 08/13/18 08:00 Resp 95 H 08/13/18 07:00 BP 189/79 H 08/13/18 07:00 Pulse Ox 95 08/13/18 07:00 Physical Exam: The patient is a well-developed, well-nourished elderly male. He is alert and fully oriented. Recent and remote memory intact. Attention and concentration normal. Patient is able to name objects and repeat phrases. His speech is slightly dysarthric sound in. He exhibits an age-appropriate fund of knowledge a normal vocabulary. Visual cintron full to confrontation. Visual acuity normal. Pupils equal round react to light and accommodation. Eye movements normal. Facial sensation intact. There is no facial droop or weakness. Hearing intact. Palate elevates to midline. Shoulder shrug intact. Tongue protrudes to midline. There is diminished vibratory sensation at the ankles. Light touch, temperature, and proprioception are otherwise intact for all 4 limbs. Deep tendon reflexes are intact and symmetrical, although diminished at the Achilles tendons bilaterally. Plantar responses downgoing bilaterally. There is no dysdiadochokinesia or dysmetria of [id number] or heel to hilton bilaterally. Ophthalmoscopic examination reveals normal-appearing optic discs and posterior segments. No papilledema or hemorrhages. Carotid pulses normal bilaterally, no bruits to auscultation. Gait and station not tested due to safety concerns. Patient exhibits normal muscle strength and tone for all 4 limbs proximally and distally. There is no pronator drift. There is no atrophy. No abnormal movements observed.
[2018-08-13] MEDS ORDERED: WARFARIN SOD 5 MG TAB PO SCH (16:00)
[2018-08-13] MEDS ORDERED: LISINOPRIL 2.5 MG TAB PO SCH (16:00)
[2018-08-13] MEDS ORDERED: STROKE PATIENT DISCHARGE STA (16:12)
--- NOTE | 2018-08-13 17:48 | Discharge Summary ---
Date of Service August 13, 2018 Admission HPI Per Admitting Provider 76 y/o M Hx Factor V Leiden mutation - previous DVT/PE, HTN, HPL, hypothyroid, BPH, CVA, DM II, CAD - NSTEMI 10/2017. The pt had a nuclear stress test today and following the test developed slurred, R sided weakness and an unsteady gait. His phoned the nurse to alert her of the symptoms and inquire if they might be a side effect of the medications which were administered. She was directed to bring him to the ER for evaluation. A stroke alert was called on arrival as his symptoms persisted. He is not a candidate for TPA as he takes Coumadin. His INR is therapeutic on admission. A CTA demonstrated cerebrovascular disease including 60% focal stenosis at the mid basilar artery and 60% stenosis at the petrous segment of the left internal carotid artery. No acute abnormalities were present on a noncontrast CT of the head. 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 HEENT normal cephalic atraumatic mucous membranes are moist. Breathing is unlabored no accessory muscle use good effort. Skin shows no rashes no pallor or icterus. Neuro shows maybe the slightest of the actually left side of his face facial droop, no slurred speech and full range of motion of upper and lower extremities. Mental status shows good recent and remote recall normal mood and affect good judgment and insight Discharge Data Allergies Allergy/AdvReac Type Severity Reaction Status Date / Time clindamycin Allergy Intermediate Rash Verified 08/12/18 15:19 Penicillins Allergy Unknown Verified 08/12/18 15:19 Sulfa (Sulfonamide Allergy Unknown HIVES Verified 08/12/18 15:19 Antibiotics) Consultations 08/12/18 17:04 ED Decision to Admit Stat 08/12/18 19:15 Consult Neurology Routine 08/12/18 19:23 Consult Case Management - Discharge Planning Routine Ordered Studies 08/12/18 15:03 CT head/brain wo con Stat CT head/brain wo con CLINICAL HISTORY: 77 years-old Male with Stroke evaluation . Acute strokelike symptoms TECHNIQUE: Multiple axial CT images of the head were obtained without contrast. A dose lowering technique was utilized adhering to the principles of ALARA. CT DOSE: 537.48 mGy.cm COMPARISON: CT head 10/21/2017. FINDINGS: No acute intracranial hemorrhage, midline shift, intracranial mass, hydrocephalus, territorial ischemia or abnormal extra-axial collection. Age- related involutional changes with ex vacuo ventriculomegaly. Mild degree of ill- defined low-attenuation about the white matter suggestive of chronic microvascular ischemic changes. Cerebral vascular calcifications are noted. The calvarium is intact. The paranasal sinuses, mastoid air cells, and middle ear cavities are clear. IMPRESSION: No acute intracranial abnormality. 08/12/18 15:32 CT angio head w con Stat CT angio neck with con Stat HEAD & NECK CTA HISTORY: Stroke symptoms. TECHNIQUE: Multiaxial CT images of the head were performed following the intravenous administration of contrast to evaluate the major cerebral vessels. Multiaxial CT images of the neck were also performed following the intravenous administration of contrast to evaluate the major cervical vessels. Maximum intensity projection images were also obtained. A dose lowering technique was utilized adhering to the principles of ALARA. COMPARISON: Head CT 08/12/2018. FINDINGS: There is no mass, hematoma, midline shift, or acute infarct. Moderate focal stenosis within the mid basilar artery best seen on image 51 of approximately 60%. The proximal and distal basilar artery are patent. Bilateral middle school tutor are fed primarily through the posterior communicating arteries. This is considered to be a normal variant. There is also focal stenosis within the petrous segment of the left internal carotid artery best seen on image 37. The stenosis is approximately 60% area no significant stenosis within the intracranial right internal carotid artery. No significant stenosis, occlusion, or aneurysm within the bilateral ACAs, MCAs, or middle school tutor. The major dural venous sinuses appear patent. The aortic arch and proximal great vessels are widely patent. Moderate focal narrowing within the mid left vertebral artery due to mass effect from the osteophytes encroaching on the vertebral canal at the C5-C6 level. Otherwise, the remaining left vertebral artery, right vertebral artery, bilateral common carotid arteries, and cervical portions of the bilateral internal carotid arteries are patent. There is moderate calcified plaque within the bilateral carotid bifurcations. Multiple intermediate to low density nodules identified at the lingual tonsils. Dominant nodule measures 1.5 cm. IMPRESSION: 1. 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 2. Focal stenosis of approximately 60% at the petrous segment of the left internal carotid artery. 3. Focal moderate narrowing of the mid left vertebral artery due to mass effect from the adjacent osteophytes at the C5-C6 level. 4. Multiple intermediate to low density nodules identified within the lingual tonsils. The largest measures 1.5 cm. Direct visualization recommended for further evaluation. Electronically signed by: Matthew Marina M.D. 08/12/2018 4:43 PM Lab Results 08/12/18 08/12/18 08/12/18 Range/Units 15:15 15:15 15:18 WBC (4.8-10.8) K/uL RBC (4.7-6.1) M/uL Hgb (14.0-18.0) g/dL Hct (42-52) % MCV (80-100) fL MCH (25-34) pg MCHC (32-36) g/dL RDW Std Deviation (36.4-46.3) fL RDW Coeff of Mary (11.5-14.5) % Plt Count (130-400) K/uL MPV (7.4-10.4) fL Immature Gran % (Auto) % Neut % (Auto) % Lymph % (Auto) % [place] % (Auto) % Eos % (Auto) % Baso % (Auto) % Immature Gran # (Auto) (0.00-0.02) K/uL Neut # (Auto) (1.4-6.5) K/uL Lymph # (Auto) (1.2-3.4) K/uL [place] # (Auto) (0.11-0.59) K/uL Eos # (Auto) (0-0.5) K/uL Baso # (Auto) (0-0.2) K/uL PT (9.0-12.0) Seconds POC INR 2.7 H (0.9-1.1) INR (0.9-1.1) APTT (21.0-31.0) Seconds PTT Ratio Sodium (136-145) mmol/L Potassium (3.5-5.1) mmol/L Chloride (98-107) mmol/L Carbon Dioxide (21-32) mmol/L Anion Gap (3-11) BUN (7-18) mg/dl Creatinine (0.6-1.4) mg/dl Est Cr Clr Drug Dosing ml/min Est GFR ( Amer) Est GFR (Non-Af Amer) BUN/Creatinine Ratio (10-20) Glucose (70-99) mg/dl POC Glucose 218 H (70-99) Estimat Average Glucose mg/dl Hemoglobin A1c (4.5-5.6) % Calcium (8.5-10.1) mg/dl Magnesium (1.8-2.4) mg/dl Total Bilirubin (0.2-1) mg/dl AST (15-37) U/L ALT (12-78) U/L Alkaline Phosphatase (45-117) U/L Troponin I (0-0.045) ng/ml Total Protein (6.4-8.2) gm/dl Albumin (3.4-5.0) gm/dl Globulin (2.5-4.0) gm/dl Albumin/Globulin Ratio (0.9-2) Triglycerides (0-150) mg/dl Cholesterol (0-200) mg/dl LDL Cholesterol, Calc mg/dl VLDL Cholesterol, Calc mg/dl HDL Cholesterol mg/dl Cholesterol/HDL Ratio Blood Type B Positive Antibody Screen NEGATIVE 08/12/18 08/12/18 08/12/18 Range/Units 15:19 15:19 15:19 WBC 5.48 (4.8-10.8) K/uL RBC 4.51 L (4.7-6.1) M/uL Hgb 15.9 (14.0-18.0) g/dL Hct 44.7 (42-52) % MCV 99.1 (80-100) fL MCH 35.3 H (25-34) pg MCHC 35.6 (32-36) g/dL RDW Std Deviation 44.7 (36.4-46.3) fL RDW Coeff of Mary 12.3 (11.5-14.5) % Plt Count 142 (130-400) K/uL MPV 10.4 (7.4-10.4) fL Immature Gran % (Auto) 0.2 % Neut % (Auto) 60.7 % Lymph % (Auto) 28.5 % [place] % (Auto) 9.3 % Eos % (Auto) 0.9 % Baso % (Auto) 0.4 % Immature Gran # (Auto) 0.01 (0.00-0.02) K/uL Neut # (Auto) 3.33 (1.4-6.5) K/uL Lymph # (Auto) 1.56 (1.2-3.4) K/uL [place] # (Auto) 0.51 (0.11-0.59) K/uL Eos # (Auto) 0.05 (0-0.5) K/uL Baso # (Auto) 0.02 (0-0.2) K/uL PT 25.4 H (9.0-12.0) Seconds POC INR (0.9-1.1) INR 2.7 H (0.9-1.1) APTT 34.2 H (21.0-31.0) Seconds PTT Ratio 1.3 Sodium 137 (136-145) mmol/L Potassium 4.1 (3.5-5.1) mmol/L Chloride 101 (98-107) mmol/L Carbon Dioxide 28 (21-32) mmol/L Anion Gap 8.0 (3-11) BUN 19 H (7-18) mg/dl Creatinine 1.26 (0.6-1.4) mg/dl Est Cr Clr Drug Dosing 53.9 ml/min Est GFR ( Amer) 63.3 Est GFR (Non-Af Amer) 54.7 BUN/Creatinine Ratio 15.3 (10-20) Glucose 216 H (70-99) mg/dl POC Glucose (70-99) Estimat Average Glucose mg/dl Hemoglobin A1c (4.5-5.6) % Calcium 9.4 (8.5-10.1) mg/dl Magnesium 2.1 (1.8-2.4) mg/dl Total Bilirubin 1.1 H (0.2-1) mg/dl AST 30 (15-37) U/L ALT 55 (12-78) U/L Alkaline Phosphatase 75 (45-117) U/L Troponin I < 0.015 (0-0.045) ng/ml Total Protein 7.6 (6.4-8.2) gm/dl Albumin 4.1 (3.4-5.0) gm/dl Globulin 3.5 (2.5-4.0) gm/dl Albumin/Globulin Ratio 1.2 (0.9-2) Triglycerides (0-150) mg/dl Cholesterol (0-200) mg/dl LDL Cholesterol, Calc mg/dl VLDL Cholesterol, Calc mg/dl HDL Cholesterol mg/dl Cholesterol/HDL Ratio Blood Type Antibody Screen 08/12/18 08/12/18 08/12/18 Range/Units 15:19 19:23 20:56 WBC (4.8-10.8) K/uL RBC (4.7-6.1) M/uL Hgb (14.0-18.0) g/dL Hct (42-52) % MCV (80-100) fL MCH (25-34) pg MCHC (32-36) g/dL RDW Std Deviation (36.4-46.3) fL RDW Coeff of Mary (11.5-14.5) % Plt Count (130-400) K/uL MPV (7.4-10.4) fL Immature Gran % (Auto) % Neut % (Auto) % Lymph % (Auto) % [place] % (Auto) % Eos % (Auto) % Baso % (Auto) % Immature Gran # (Auto) (0.00-0.02) K/uL Neut # (Auto) (1.4-6.5) K/uL Lymph # (Auto) (1.2-3.4) K/uL [place] # (Auto) (0.11-0.59) K/uL Eos # (Auto) (0-0.5) K/uL Baso # (Auto) (0-0.2) K/uL PT (9.0-12.0) Seconds POC INR (0.9-1.1) INR (0.9-1.1) APTT (21.0-31.0) Seconds PTT Ratio Sodium (136-145) mmol/L Potassium (3.5-5.1) mmol/L Chloride (98-107) mmol/L Carbon Dioxide (21-32) mmol/L Anion Gap (3-11) BUN (7-18) mg/dl Creatinine (0.6-1.4) mg/dl Est Cr Clr Drug Dosing ml/min Est GFR ( Amer) Est GFR (Non-Af Amer) BUN/Creatinine Ratio (10-20) Glucose (70-99) mg/dl POC Glucose 164 H 281 H (70-99) Estimat Average Glucose 180 mg/dl Hemoglobin A1c 7.9 H (4.5-5.6) % Calcium (8.5-10.1) mg/dl Magnesium (1.8-2.4) mg/dl Total Bilirubin (0.2-1) mg/dl AST (15-37) U/L ALT (12-78) U/L Alkaline Phosphatase (45-117) U/L Troponin I (0-0.045) ng/ml Total Protein (6.4-8.2) gm/dl Albumin (3.4-5.0) gm/dl Globulin (2.5-4.0) gm/dl Albumin/Globulin Ratio (0.9-2) Triglycerides (0-150) mg/dl Cholesterol (0-200) mg/dl LDL Cholesterol, Calc mg/dl VLDL Cholesterol, Calc mg/dl HDL Cholesterol mg/dl Cholesterol/HDL Ratio Blood Type Antibody Screen 08/13/18 08/13/18 08/13/18 Range/Units 06:07 06:07 07:13 WBC 5.24 (4.8-10.8) K/uL RBC 4.05 L (4.7-6.1) M/uL Hgb 14.4 (14.0-18.0) g/dL Hct 40.3 L (42-52) % MCV 99.5 (80-100) fL MCH 35.6 H (25-34) pg MCHC 35.7 (32-36) g/dL RDW Std Deviation 45.0 (36.4-46.3) fL RDW Coeff of Mary 12.4 (11.5-14.5) % Plt Count 123 L (130-400) K/uL MPV 10.0 (7.4-10.4) fL Immature Gran % (Auto) 0.2 % Neut % (Auto) 65.0 % Lymph % (Auto) 21.6 % [place] % (Auto) 10.9 % Eos % (Auto) 2.1 % Baso % (Auto) 0.2 % Immature Gran # (Auto) 0.01 (0.00-0.02) K/uL Neut # (Auto) 3.41 (1.4-6.5) K/uL Lymph # (Auto) 1.13 L (1.2-3.4) K/uL [place] # (Auto) 0.57 (0.11-0.59) K/uL Eos # (Auto) 0.11 (0-0.5) K/uL Baso # (Auto) 0.01 (0-0.2) K/uL PT (9.0-12.0) Seconds POC INR (0.9-1.1) INR (0.9-1.1) APTT (21.0-31.0) Seconds PTT Ratio Sodium 140 (136-145) mmol/L Potassium 3.6 (3.5-5.1) mmol/L Chloride 109 H (98-107) mmol/L Carbon Dioxide 26 (21-32) mmol/L Anion Gap 5.0 (3-11) BUN 18 (7-18) mg/dl Creatinine 1.02 (0.6-1.4) mg/dl Est Cr Clr Drug Dosing 66.6 ml/min Est GFR ( Amer) 81.8 Est GFR (Non-Af Amer) 70.6 BUN/Creatinine Ratio 17.2 (10-20) Glucose 76 (70-99) mg/dl POC Glucose 72 (70-99) Estimat Average Glucose mg/dl Hemoglobin A1c (4.5-5.6) % Calcium 8.5 (8.5-10.1) mg/dl Magnesium (1.8-2.4) mg/dl Total Bilirubin (0.2-1) mg/dl AST (15-37) U/L ALT (12-78) U/L Alkaline Phosphatase (45-117) U/L Troponin I (0-0.045) ng/ml Total Protein (6.4-8.2) gm/dl Albumin (3.4-5.0) gm/dl Globulin (2.5-4.0) gm/dl Albumin/Globulin Ratio (0.9-2) Triglycerides 126 (0-150) mg/dl Cholesterol 135 (0-200) mg/dl LDL Cholesterol, Calc 57 mg/dl VLDL Cholesterol, Calc 25 mg/dl HDL Cholesterol 53 mg/dl Cholesterol/HDL Ratio 3 Blood Type Antibody Screen 08/13/18 08/13/18 Range/Units 11:10 16:10 WBC (4.8-10.8) K/uL RBC (4.7-6.1) M/uL Hgb (14.0-18.0) g/dL Hct (42-52) % MCV (80-100) fL MCH (25-34) pg MCHC (32-36) g/dL RDW Std Deviation (36.4-46.3) fL RDW Coeff of Mary (11.5-14.5) % Plt Count (130-400) K/uL MPV (7.4-10.4) fL Immature Gran % (Auto) % Neut % (Auto) % Lymph % (Auto) % [place] % (Auto) % Eos % (Auto) % Baso % (Auto) % Immature Gran # (Auto) (0.00-0.02) K/uL Neut # (Auto) (1.4-6.5) K/uL Lymph # (Auto) (1.2-3.4) K/uL [place] # (Auto) (0.11-0.59) K/uL Eos # (Auto) (0-0.5) K/uL Baso # (Auto) (0-0.2) K/uL PT (9.0-12.0) Seconds POC INR (0.9-1.1) INR (0.9-1.1) APTT (21.0-31.0) Seconds PTT Ratio Sodium (136-145) mmol/L Potassium (3.5-5.1) mmol/L Chloride (98-107) mmol/L Carbon Dioxide (21-32) mmol/L Anion Gap (3-11) BUN (7-18) mg/dl Creatinine (0.6-1.4) mg/dl Est Cr Clr Drug Dosing ml/min Est GFR ( Amer) Est GFR (Non-Af Amer) BUN/Creatinine Ratio (10-20) Glucose (70-99) mg/dl POC Glucose 223 H 302 H (70-99) Estimat Average Glucose mg/dl Hemoglobin A1c (4.5-5.6) % Calcium (8.5-10.1) mg/dl Magnesium (1.8-2.4) mg/dl Total Bilirubin (0.2-1) mg/dl AST (15-37) U/L ALT (12-78) U/L Alkaline Phosphatase (45-117) U/L Troponin I (0-0.045) ng/ml Total Protein (6.4-8.2) gm/dl Albumin (3.4-5.0) gm/dl Globulin (2.5-4.0) gm/dl Albumin/Globulin Ratio (0.9-2) Triglycerides (0-150) mg/dl Cholesterol (0-200) mg/dl LDL Cholesterol, Calc mg/dl VLDL Cholesterol, Calc mg/dl HDL Cholesterol mg/dl Cholesterol/HDL Ratio Blood Type Antibody Screen Hospital Course (1) CVA (cerebral vascular accident): 76 y/o M Hx Factor V Leiden mutation - previous DVT/PE, HTN, HPL, hypothyroid, BPH, CVA, DM II, CAD - NSTEMI 10/2017. The pt had a nuclear stress test today and following the test developed slurred, R sided weakness and an unsteady gait. His phoned the nurse to alert her of the symptoms and inquire if they might be a side effect of the medications which were administered. She was directed to bring him to the ER for evaluation. A stroke alert was called on arrival as his symptoms persisted. He is not a candidate for TPA as he takes Coumadin. His INR is therapeutic on admission. A CTA demonstrated cerebrovascular disease including 60% focal stenosis at the mid basilar artery and 60% stenosis at the petrous segment of the left internal carotid artery. No acute abnormalities were present on a noncontrast CT of the head. 1) CVA -appears either to have been related to his 60% stenosis of the petrous segment of the left internal carotid, or just as/more likely more distal small vessel disease. His risks appear to be hypertension, hyperlipidemia, diabetes, male, age. His lipids are well suppressed, it appears that normally his blood pressure is under good control, but right now autoregulation has him fairly significantly elevated (see below under hypertension), his A1c is 7.9 (see below under diabetes). No interventions are able to be done on the internal carotid given where it is according to neurology, he will be on dual antiplatelets for the short but indefinite time being. This will be managed and adjusted based on further follow-up with his PCP and neurology. He is stable for discharge home, outpatient PT eval and treat. per neuro consult: (1) CVA (cerebral vascular accident): Suspected small ischemic posterior circulation stroke or TIA. He does have very mild dysarthria this morning but otherwise has an intact neurological examination other than some sensory loss probably related to a diabetic peripheral neuropathy. He does not appear to be ataxic or have signs of a hemiparesis at this time. 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 It is difficult to determine if either of these lesions would have been clinically significant, although either 1 of them could have produced stroke or TIA like symptoms as described in his presentation. Yet, the degree of stenosis for these lesions would not appear to be hemodynamically significant under most circumstances and there was no evidence of plaque rupture with either of them. However, it is possible that the proceeding cardiac stress test was a provoking factor in the setting of these two vascular lesions. Unfortunately, it sounds like a brain MRI cannot be completed for this patient as he has a chronic abdominal surgical staple. I do not think additional neurological testing needs to be completed during this hospitalization. However, I would recommend a follow-up CT angiogram of the head and neck in 6-12 months. Unfortunately, under most circumstances, neither a mid basilar stenosis or petrous internal carotid artery stenosis would be amenable to intervention. Medical management is the preferred option and this patient should continue with atorvastatin, low-dose aspirin, Plavix, and warfarin. Clearly, he has other indications for his anticoagulant and antiplatelet therapy as well. His blood pressure has been running a little high during this hospitalization. Would recommend a systolic blood pressure goal of 140-160 mmHg during this hospitalization with further gentle reductions as medically appropriate on an outpatient basis. Consultations with PT/OT/speech therapy. Please contact me if I may be of further assistance. 2) Factor V Leiden, prior DVT/PE - cont Coumadin - INR is therapeutic, outpatient follow-up as before 3) CAD - no evidence of ACS - stress result from earlier pending. ASA, plavix, statin provided. 4) DM II -A1c elevated at 7.9%. He is quite muslim about carb counting and trying to match carb to insulin, but he does not check postprandial glucoses to "grade his work" we discussed that most likely if he starts checking then he will see some sugars higher than he realizes, likely due to some foods being more carbohydrate dense than he was realizing, and therefore would require a little bit more insulin to cover them. He expressed a good understanding of this. I anticipate that he will do well in getting his sugars under better con trol in a short period 5) HTN -he is a little bit higher than we would prefer with autoregulation, but is otherwise safe for home. I discussed this with him and his at length and in detail. Not wanting to precipitate any watershed hypotension, we have initiated lisinopril at 2.5 mg daily. He has a home blood pressure cuff, I have encouraged him to check things regularly, and as he follows up next week the lisinopril can continue to be adjusted up or down accordingly. Should he be on it for more than extremely short period of time, a basic metabolic panel should be checked next week or no later than the following. 6) Hypothyroid - cont Synthroid 7) BPH - cont Silodosin, Finasteride Full code - Anticoagulated with Coumadin Total Time Total Time Spent Total Time Spent (In Minutes): >30 mins Discharge Plan Discharge Items Patient Disposition: Home - Self-Care Reason For Visit: CVA Discharge Diagnosis: CVA Discharge Goals: Decrease discomfort Activity: Resume your previous activity Activity Comment: have outpatient physical therapy Non-emergency contact: Primary Care Provider and Neurologist Call non-emergency contact if: you have any medication questions Follow-up/Referrals: Sheng Sherman MD [Primary Care Provider] - Diet: Carb Count or DM1 Addtl Provider Instructions: stroke -the stroke appears to either have been related to the 60% blockage seen on CT angiogram versus just as likely small blood vessel blockages further downstream -either way the management is the same: -blood thinners - for now we'll have you on aspirin in addition to your plavix and warfarin; this is "open ended short term" depending on how you're doing - most of the time this is an overlap of about 30 days, but with your situation, it will be a balance of if you have any recurrence of symptoms from the stroke versus if you're having any bleeding troubles. Dr Sherman and Yojana will work together keeping an eye on this -cholesterol - your cholesterols are well suppressed, and 80mg of atorvastatin is a good medicine to stabilize plaque that is already in arteries, so there's no need to make changes there -blood pressure - right now your blood pressures are running too high - but will need to be carefully managed and followed closely. after a stroke, people often will have a process called "autoregulation" where their brain basically "tells" blood vessels to increase pressure to get flow through the blockages - this helps to protect surrounding brain tissue. in general this is something that we want to allow to happen, but not quite to the degree that you've been running. ideally we'd want to see you running around 140-160 for the next month and then gradually down to 110/70 ranges. because reviewing your outpatient pressures, it appears that recently you've really been running mostly at/around the goals we'd want to see, it's likely that we'll only need to treat gently, and for a short time. that said, you're definitely running higher than we want for now - so we've started a low dose of a medication called lisinopril (2.5mg - for reference typical treatment range for blood pressure is 10-40mg) and then we'll want you to follow pressures closely and follow up with Dr Sherman - as we see what you're pressures do, he might need to bump it up a little higher or actually if your pressures reduce again, he may be able to stop it fairly quickly. side effects are fortunately not very common - about 5% of people on it will develop an annoying dry cough that goes away if you stop the medicine. if you need to be on it past this coming week, Dr Sherman will check labwork (BMP) to make sure your kidneys are happy with it (most are, but a very small percentage of people can't tolerate it - problems resolve if the med is stopped when that happens) -sugars - since high sugars clog arteries, your A1c of 7.9% is certainly part of how we've got the blockages leading to the current stroke. that said, you do appear to be quite good and quite vigilant at keeping on top of your sugars - my guess with an A1c in the high 7's is that there are some foods some of the time that are more carb dense than you're realizing. the easiest way to get to the bottom of this will be to check sugars about 2 hours after you eat (just after you'll have reached peak absorption, and after your short acting insulin will have peaked) with a goal of seeing sugars between 100-150. as we discussed, you may find that you need to occassionally add a "fudge factor" to your carb ratio to make up for things that might have more carbs hidden in it than realized. Prescriptions: New aspirin [Ecotrin Low Strength] 81 mg Tablet,Delayed Release (Dr/Ec) 81 mg PO QAM Qty: 30 RF: 0 lisinopril 2.5 mg Tablet 2.5 mg PO QAM Qty: 30 RF: 0 Continued multivitamin Tablet 1 tab PO DAILY Qty: 0 RF: 0 nitroglycerin [Nitrostat] 0.4 mg Tablet, Sublingual 0.4 mg UT UD PRN (Reason: Chest Pain) Qty: 0 RF: 0 silodosin 8 mg Capsule 8 mg PO QPM Qty: 0 RF: 0 levothyroxine 25 mcg Tablet 25 mcg PO DAILY Qty: 0 RF: 0 docusate sodium 100 mg Capsule 300 mg PO QPM Qty: 0 RF: 0 magnesium 250 mg Tablet 250 mg PO DAILY Qty: 0 RF: 0 lutein-zeaxanthin 20 mg- 1,000 mcg Capsule 1 cap PO DAILY Qty: 0 RF: 0 warfarin 5 mg Tablet 2.5 mg PO WK Qty: 0 RF: 0 warfarin 5 mg Tablet 5 mg PO [id number] Qty: 0 RF: 0 folic acid 1 mg Tablet 1 mg PO DAILY Qty: 0 RF: 0 losartan 100 mg Tablet 100 mg PO DAILY Qty: 0 RF: 0 finasteride 5 mg Tablet 5 mg PO QPM Qty: 0 RF: 0 Lantus Solostar U-100 Insulin 100 unit/mL (3 mL) Insulin Pen 25 unit SUBCUT QPM Qty: 0 RF: 0 doxazosin 4 MG tablet 4 mg PO QAM Qty: 0 RF: 0 pyridoxine (vitamin B6) 100 mg Tablet 100 mg PO DAILY Qty: 0 RF: 0 Humalog KwikPen Insulin 100 unit/mL Insulin Pen SUBCUT ACHS Qty: 0 RF: 0 atorvastatin 80 mg Tablet 80 mg PO HS Qty: 0 RF: 0 clopidogrel 75 mg Tablet 75 mg PO DAILY RF: 0 Stand-Alone Forms: Medications to Prevent Stroke, My [facility] [facility]/Other Patient Handouts: Lisinopril Oral tablet, Aspirin Oral tablet, Stroke Sx, TIA, Stroke Taking Meds, High Blood Pressure Stroke Link, Attack Transient Ischemic Dc, Stroke Risk Factors Discharge Orders: Discharge Order (Routine); Ordered 08/13/18 Ordered By: Kishan Santamaria Admission Data Admit Date/Time: 08/12/18 18:07 Attending Provider: Kishan Santamaria Admit Provider: Emil Wang Primary Care Provider: Sheng Sherman Other Providers: Emil Wang ; Lavell Dial Service: Telemetry Other Interventions: Discharge Summary Assessment (RN) Last Done: 08/13/18 17:22
[2018-08-13] MEDS ORDERED: SILODOSIN 8 MG PO SCH (21:00)
--- NOTE | 2018-08-13 22:12 | Pharmacy Report ---
Pharmacist Stroke Counseling - Date of Service August 13, 2018 - Scope: Pharmacy has been consulted to provide medication discharge counseling for this patient admitted with ischemic stroke as per the Pharmacist Discharge Counseling for Stroke Patients Protocol. - Medications on Discharge: Home Medications Medication Instructions Recorded Confirmed multivitamin 1 tab PO DAILY #0 11/28/08 08/12/18 nitroglycerin [Nitrostat] 0.4 mg UT UD PRN #0 11/28/08 08/12/18 silodosin 8 mg PO QPM #0 08/21/14 08/12/18 docusate sodium 300 mg PO QPM #0 cap 01/19/17 08/12/18 levothyroxine 25 mcg PO DAILY #0 01/19/17 08/12/18 lutein-zeaxanthin 1 cap PO DAILY #0 01/19/17 08/12/18 magnesium 250 mg PO DAILY #0 01/19/17 08/12/18 Humalog KwikPen Insulin 0 unit SUBCUT ACHS #0 09/22/17 08/12/18 Lantus Solostar U-100 Insulin 25 unit SUBCUT QPM #0 09/22/17 08/12/18 doxazosin 4 mg PO QAM #0 09/22/17 08/12/18 finasteride 5 mg PO QPM #0 09/22/17 08/12/18 folic acid 1 mg PO DAILY #0 tab 09/22/17 08/12/18 losartan 100 mg PO DAILY #0 09/22/17 08/12/18 pyridoxine (vitamin B6) 100 mg PO DAILY #0 tab 09/22/17 08/12/18 warfarin 2.5 mg PO WK #0 tab 09/22/17 08/12/18 warfarin 5 mg PO 6XWK #0 09/22/17 08/12/18 atorvastatin 80 mg PO HS #0 10/21/17 08/12/18 clopidogrel 75 mg PO DAILY 08/12/18 08/12/18 New Rx's Medication Instructions Recorded aspirin [Ecotrin Low Strength] 81 mg PO QAM #30 tab 08/13/18 lisinopril 2.5 mg PO QAM #30 tab 08/13/18 - Action: The above medications, specifically ones for stroke treatment/prophylaxis, have been reviewed in detail with the patient and/or patient telephone sales representative(s) prior to discharge. This includes indication, common adverse reactions, drug interactions, and medication administration. Medication counseling has been employed using the teach-back method to ensure understanding. - Outcome: The patient and/or patient telephone sales representative(s) have demonstrated understanding of the medications. Please note, they are aware that the pharmacist will call them within 72 hours post-discharge to confirm that the appropriate medications are being taken and answer any further medication related questions the patient might have at that time. Contact information Individual to be contacted: Either Mr. Cagle or his Relationship to patient (if applicable): Phone number: [phone] Best time to call: after 9am Additional comments: Spoke with both patient and his regarding his medications. New meds are ASA EC 81mg po daily and Lisinopril 2.5mg po Daily. I spoke with him about the importance of picking up the new discharge medications. His had mentioned that she thought he had been on Lisinopril previously and that it had caused a cough. I told them that it was a possible side effect of the Lisinopril and if it became problematic to discuss with his PCP. He understood and said he would if he had problems. Thank you for allowing pharmacy to be involved in the care of this patient. Please call [phone] or [phone] with any additional questions
--- NOTE | 2018-08-15 10:05 | Pharmacy Report ---
Pharmacist Post D/C Phone Note - Phone Note: Date of phone call: August 15, 2018. Individual with whom pharmacist spoke to: Kelli NINA (patient's ) The following questions were reviewed during the phone call with responses listed below each: Can you tell me the medications that you are currently taking as well as when and how you take each medication? -See Table Below When have you missed any doses of your medications? - Has not missed any doses What side effects are you having from your medications, specifically, the new medications you were started on? - Blood pressures have been lower but not experiencing any fatigue, dizziness etc. No other symptoms What questions do you have about your medications? - Question about duration of lisinopril- written for 30 days- noticed patient was already on losartan-see comments below What problems are you having obtaining your medications? - No problems receiving medications When is your next appointment with your primary care doctor? - Patient does not have f/u at this time-making appointment for this week- see comments below Additional comments: - Patient's blood pressures were elevated at visit systolic 180s which would be consistent with CVA. Patient was started on lisinopril 2.5 mg- noticed that patient was already on losartan when reviewing medication list. Typically would use alternative agent before doing CONSTANTIN/ARB combination- patient's also reports patient developed cough on CONSTANTIN. Per patient's , BPs have been lower since going home 110/61 this morning but patient is not having any dizziness, fatigue etc. Discussed these two medications had work in similar ways and while sometimes used in combination may want alternative if additional agent is continued to be needed. Follow up appointment not yet made with family doctor- asked if it would be okay to call their family doctor to discuss the medications and she said that would be okay. Let her know the office would likely contact her. Also encouraged her to ask the doctor about the combination and if lisinopril is needed. Discharging hospitalist is not on service to discuss. Called Dr. Sherman's office (patient PCP) and spoke with YUNIOR Álvarez. Discussed that he was started on lisinopril and was already on losartan- not typical combination, pt's reporting lower BPs 110/61 most recent. Should lisinopril be continued or can it be discontinued or switched to alternative agent? Per Preeti a transition of care nurse had attempted contact this morning but did not reach patient and she would let the transition of care nurse know to task Dr. Sherman about the two agents. She also said that the losartan was prescribed by cardiology- explained losartan would likely be the agent that would need to be continued as the patient had been tolerating well, but the lisinopril was the drug prescribed by our hospitalist team that could need discontinued or switched to a different agent. The discharging hospitalist is off service today. As per the Pharmacist Discharge Counseling for Stroke Patients Protocol, this phone call has been completed within 72 hours of discharge. Thank you for allowing us to be involved in the care of this patient. - Home Medications: Home Medications Medication Instructions Recorded Confirmed multivitamin 1 tab PO DAILY #0 11/28/08 08/12/18 nitroglycerin [Nitrostat] 0.4 mg UT UD PRN #0 11/28/08 08/12/18 silodosin 8 mg PO QPM #0 08/21/14 08/12/18 docusate sodium 300 mg PO QPM #0 cap 01/19/17 08/12/18 levothyroxine 25 mcg PO DAILY #0 01/19/17 08/12/18 lutein-zeaxanthin 1 cap PO DAILY #0 01/19/17 08/12/18 magnesium 250 mg PO DAILY #0 01/19/17 08/12/18 Humalog KwikPen Insulin 0 unit SUBCUT ACHS #0 09/22/17 08/12/18 Lantus Solostar U-100 Insulin 25 unit SUBCUT QPM #0 09/22/17 08/12/18 doxazosin 4 mg PO QAM #0 09/22/17 08/12/18 finasteride 5 mg PO QPM #0 09/22/17 08/12/18 folic acid 1 mg PO DAILY #0 tab 09/22/17 08/12/18 losartan 100 mg PO DAILY #0 09/22/17 08/12/18 pyridoxine (vitamin B6) 100 mg PO DAILY #0 tab 09/22/17 08/12/18 warfarin 2.5 mg PO WK #0 tab 09/22/17 08/12/18 warfarin 5 mg PO 6XWK #0 09/22/17 08/12/18 atorvastatin 80 mg PO HS #0 10/21/17 08/12/18 clopidogrel 75 mg PO DAILY 08/12/18 08/12/18 New Rx's Medication Instructions Recorded aspirin [Ecotrin Low Strength] 81 mg PO QAM #30 tab 08/13/18 lisinopril 2.5 mg PO QAM #30 tab 08/13/18
== END 2018-08-13 18:15 | disposition home or self-care (01) | DRG 65 ==
LOC: ED 14:49 → 2S 18:07 → SUATTDRO 18:07 → 2S 18:46

== ENCOUNTER 2019-07-20 17:07 | Observation (INO) ==
[2019-07-20 17:32] LABS: Basophils # (auto) 0.01 K/uL (0-0.2); Basophils % (auto) 0.1 %; Eosinophils % (auto) 1.5 %; Hematocrit (blood only) 43.2 % (42-52); Hemoglobin 15.5 g/dL (14.0-18.0); Immature Granulocytes # (auto) 0.02 K/uL (0.00-0.02); Immature Granulocytes % (auto) 0.3 %; Lymphocytes # (auto) 1.65 K/uL (1.2-3.4); Lymphocytes % (auto) 24.6 %; Mean Corpuscular Hemoglobin 35.6 pg (25-34); Mean Corpuscular Hgb Conc 35.9 g/dL (32-36); Mean Corpuscular Volume 99.1 fL (80-100); Mean Platelet Volume 9.9 fL (7.4-10.4); Monocytes # (auto) 0.75 K/uL (0.11-0.59); Monocytes % (auto) 11.2 %; Neutrophils # (auto) 4.19 K/uL (1.4-6.5); Neutrophils % (auto) 62.3 %; Platelet Count 128 K/uL (130-400); RDW Coefficient of Variation 12.2 % (11.5-14.5); RDW Standard Deviation 44.4 fL (36.4-46.3); Red Blood Count 4.36 M/uL (4.7-6.1); White Blood Count 6.72 K/uL (4.8-10.8)
[2019-07-20] MEDS ORDERED: OPTIRAY 320 125ml IV PRN (17:34)
--- NOTE | 2019-07-20 17:35 | CT Scan Report ---
CT head/brain wo con CLINICAL HISTORY: Stroke evaluation CONFUSION, DYSARTHRIA. COMPARISON STUDY: 08/12/2018 TECHNIQUE: Axial CT of the brain is performed from the vertex to the skull base. IV contrast was not administered for this examination. A dose lowering technique was utilized adhering to the principles of ALARA. CT DOSE: 537.48 mGy.cm FINDINGS: No intra or extra-axial mass lesions are visualized. There is no CT evidence of acute cortical infarc tion. There is no evidence of midline shift. There is no acute hemorrhage. No calvarial fractures ar e visualized. There are patchy white matter hypodensities likely on a small vessel basis. There is mild ventricular prominence, finding which is felt to be secondary to volume loss. There is no evidence of acute sinusitis IMPRESSION: No acute intracranial findings ACT 112: Negative or not required by law. Electronically signed by: Naresh Beyer M.D. 07/20/2019 5:33 PM
[2019-07-20 17:47] LABS: INR 2.1 (0.9-1.1); Partial Thromboplastin Ratio 1.1; Partial Thromboplastin Time 30.3 Seconds (21.0-31.0); Prothrombin Time 20.6 Seconds (9.0-12.0)
[2019-07-20 17:48] LABS: Albumin Level 4.2 gm/dl (3.4-5.0); BUN Creatinine Ratio 15.3 (10-20); Blood Urea Nitrogen 24 mg/dl (7-18); Calcium 9.2 mg/dl (8.5-10.1); Carbon Dioxide 28 mmol/L (21-32); Chloride 101 mmol/L (98-107); Creatinine Clr Calc Pharmacy 44.7 ml/min; Est GFR (African American) 49.4; Est GFR (Non-African American) 42.6; Glucose 269 mg/dl (70-99); Magnesium 2.4 mg/dl (1.8-2.4); Potassium 4.5 mmol/L (3.5-5.1); Sodium 136 mmol/L (136-145)
--- NOTE | 2019-07-20 17:51 | CT Scan Report ---
CTA ANGIOGRAPHY OF THE HEAD CLINICAL HISTORY: code stroke COMPARISON STUDY: CTA of the head August 12, 2018. Head CT performed earlier today. TECHNIQUE: Helical axial images of the head were obtained following uneventful intravenous administr ation of 118 cc of Optiray 320. Sagittal and coronal reconstructions were viewed as well as maximal i ntensity projections on an independent 3-D workstation. Automated exposure control was utilized for the study. A dose lowering technique was utilized adhering to the principles of ALARA. FINDINGS: No acute intracranial hemorrhage, midline shift or mass effect is present. Ventricular syst em is stable. Basilar cisterns are patent. There are no extra axial collections. Moderate stenosis of the petrous portion of the left internal carotid artery is unchanged. Mild to moderate stenosis of t he petrous portion of the right internal carotid arteries also unchanged and CTA of August 12, 2018. Th ere is moderate plaque within the bilateral cavernous carotids. Note is made of persistence of the right posterior cerebral artery as well as persistence of the left posterior cerebral arter y. No intraluminal thrombus or abrupt vessel cut off is identified within the intracranial vessels. 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 IMPRESSION: 1. No intracranial aneurysm, abrupt vessel cut off or intraluminal thrombus. 2. No significant change since CTA of August 12, 2018. Moderate stenosis of the petrous portion of the left internal carotid artery and the basilar artery. ACT 112: Negative or not required by law. Electronically signed by: Billy Dominguez M.D. 07/20/2019 5:50 PM
[2019-07-20 17:53] LABS: Alanine Aminotransferase 57 U/L (12-78); Albumin Globulin Ratio 1.3 (0.9-2); Alkaline Phosphatase 68 U/L (45-117); Aspartate Aminotransferase 42 U/L (15-37); Bilirubin,Total 0.8 mg/dl (0.2-1); Globulin 3.3 gm/dl (2.5-4.0); Total Protein 7.5 gm/dl (6.4-8.2); Troponin I < 0.015 ng/ml (0-0.045)
--- NOTE | 2019-07-20 17:53 | CT Scan Report ---
CT angio neck with con CLINICAL HISTORY: Acute stroke COMPARISON STUDY: August 12, 2018 TECHNIQUE: CT angiography was performed from the aortic arch to the skull base. MIP imaging was perfo rmed. The patient was scanned in a dynamic helical fashion during intravenous administration of 118 c c of Optiray 320. A dose lowering technique was utilized adhering to the principles of ALARA. CT DOSE: 582.98 mGy.cm Technique: CT angiogram of the carotid and vertebral arteries was obtained using intravenous contrast and 3-D reconstruction. NASCET criteria was utilized. Findings: The right carotid revealed no evidence of aneurysm and no evidence of dissection. There is no evidenc e of hemodynamic significant stenosis. Calcified atheromatous plaque is present at the carotid bulb w ithout evidence of significant stenosis. The left carotid revealed no evidence of hemodynamic significant stenosis. There is no evidence of an eurysm. There is no evidence of dissection. Calcified atheromatous plaque is present the level of the carotid bulb without evidence of significant stenosis There is no evidence for hemodynamically significant right vertebral artery stenosis. There is modera te left vertebral artery narrowing at the C5-6 level due to facet joint arthropathy the basilar arter y is a relatively diminutive vessel. There is no evidence of vertebral artery dissection IMPRESSION: 1. Calcific atheromatous plaque at the level the carotid bifurcations. No evidence of hemodynamically significant carotid stenosis 2. 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 Electronically signed by: Naresh Beyer M.D. 07/20/2019 5:52 PM
[2019-07-20] MEDS ORDERED: SODIUM CHLORIDE 0.9% 1000ML 1,000 ML IV SCH (18:30)
[2019-07-20] MEDS ORDERED: KETOROLAC TROMETHAMINE 15 MG/ML VIAL IV STA (18:39)
--- NOTE | 2019-07-20 20:27 | History & Physical Report ---
Date of Service July 20, 2019 Assessment & Plan (1) TIA (transient ischemic attack): Admit to PCU on telemetry for observation for possible TIA versus stroke. Stroke pathway without tPA. Consult neurology Brain MRI without contrast pending. CT of the head and neck negative for acute stroke. We are waiting to receive the results from brain MRI and if no acute stroke/hemorrhage will continue with aspirin 81 clopidogrel 75 mg p.o. daily and warfarin. The case was discussed with neurology at tele-stroke Dr. Chetan Donnelly and he did not recommend TPA at this time since patient's INR was 2.2. Physical and Occupational Therapy. Patient able to swallow and will have dinner tonight. Speech therapy only if noticed any problems with swallowing. DVT prophylaxis SCDs and teds for now until brain MRI is completed, and then patient can resume his warfarin. Full CODE. Present on Admission?: Yes (2) Dyslipidemia: Lipid panel pending, continue atorvastatin 40 mg p.o. nightly. 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 Calorie count, sliding scale insulin, Accu-Cheks before meals and at bedtime. Glycemic control per pharmacy. 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 Continue monitoring creatinine. Avoid nephrotoxic agents. Present on Admission?: Yes (5) Irregular heartbeat: EKG showed normal sinus rhythm at this time. Patient is on warfarin for paroxysmal irregular heartbeat. Patient is therapeutic with INR 2.2. Present on Admission?: Yes (6) Hypothyroidism: TSH pending. Continue levothyroxine 25 MCG's p.o. daily. Present on Admission?: Yes (7) Complex sleep apnea syndrome: Patient can use BiPAP from home with his home setting. If BiPAP from home is not available he can use the BiPAP from the hospital. Please adjust settings. Start initially with IPAP 10 cm of water, EPAP 5 cm of water, adjust 2 to 5 cm of water, respiratory rate 10-12. Present on Admission?: Yes (8) CAD (coronary artery disease): Continue home medicine after MRI of the brain shows no acute stroke with hemorrhage. Aspirin 81 mg p.o. every morning, Atorvastatin 40 mg p.o. daily, Clopidogrel 75 mg p.o. daily Present on Admission?: Yes (9) CVA (cerebral vascular accident): As discussed above. Patient had previous 5 strokes. Neurology consult pending. 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 Present on Admission?: Yes (11) Alcohol abuse: Patient reports not using alcohol recently. Continue pyridoxine 100 mg p.o. daily, multivitamin 1 tablet p.o. daily, magnesium 250 mg p.o. daily, folic acid 1 mg p.o. daily, thiamine 100 mg p.o. daily. Present on Admission?: Yes (12) Benign prostatic hyperplasia: Stable, continue finasteride 5 mg p.o. daily and doxazosin 4 mg p.o. daily. Continue silodosin 8 mg p.o. every afternoon. Continue mirabegron on 50 mg p.o. daily. Present on Admission?: Yes (13) Hypertension: Patient had elevated blood pressure in the ER. The reason could be that he did not take all of his blood pressure medicine today. Continue home blood pressure medicine: Losartan 100 mg p.o. daily, Nitroglycerin 0.4 mg sublingual as needed. Continue aspirin, clopidogrel, once when patient brain MRI is completed and shows no hemorrhage in the brain. Present on Admission?: Yes (14) Constipation, acute: Stable, continue docusate sodium 300 mg p.o. every afternoon. 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 Patient takes for hypercoagulable state warfarin. His INR is 2.2. Patient was brought today by EMS to the emergency room after his noted that around 3:30 PM patient was unable to speak clearly nor he was able to remember the proper word. Stroke alert was called in the emergency room. Patient reports no weakness in his upper or lower extremity and all other intracranial nerves being intact. Patient complains of confusion that occurred today. Prior to this he was able to recall names of all of his medication which he could not today during the clinical exam. Patient reports taking all of his medication regularly. Patient is already on Plavix 75 mg daily, aspirin 81 mg daily and atorvastatin 40 mg p.o. daily. His noted that his blood pressure was also very elevated today which is not very usual for him. Patient denies fever, chills, chest pain, shortness of breath, abdominal pain, frequency, urgency. Labs are reviewed which shows: WBC 6.72, hemoglobin 15.5, hematocrit 43.2, platelets 128, PT 20.6, INR 2.2,/2.1, sodium 136, potassium 4.5, chloride 101, BUN 24, creatinine 1.54 which is slightly above his baseline in December 2018 1.43. GFR of 42.6, blood glucose of 258, hemoglobin A1c 8 point 4 June 23 2019, magnesium 2.4, total bilirubin 0.8, AST 42, ALT 57, troponin 0.015, TSH pending, BNP pending. CT of the head without contrast no acute intracranial findings. There is a mild ventricular prominence, which could be secondary to volume loss. No evidence of midline shift. No acute hemorrhage. No calvarial fractures are visualized. CTA of the head and neck: No intracranial aneurysm, abrupt vessel cutoff of intraluminal thrombus. No significant change since CTA of August 12, 2018. Moderate stenosis of the petrous portion of the left intracranial carotid artery and the basilar arteries. Calcified atheroma Andrew plaque at the level of the carotid bifurcation no evidence of hemodynamically significant carotid stenosis. 60% left vertebral artery stenosis at the C5-C6 level secondary to facet joint arthropathy.Decision is made to admit pt to PCU on tele for OBSV of possible stroke or TIA. Allergies Allergy/AdvReac Type Severity Reaction Status Date / Time clindamycin Allergy Intermediate Rash Verified 07/20/19 19:01 Penicillins Allergy Unknown Unknown Verified 07/20/19 19:01 Sulfa (Sulfonamide Allergy Unknown HIVES Verified 07/20/19 19:01 Antibiotics) lisinopril Allergy Unknown Verified 07/20/19 19:01 Home Medications Home Medications Medication Instructions Recorded Confirmed Type multivitamin 1 tab PO DAILY #0 11/28/08 07/20/19 History docusate sodium 300 mg PO QPM #0 cap 01/19/17 07/20/19 History magnesium 250 mg PO DAILY #0 01/19/17 07/20/19 History pyridoxine (vitamin B6) 100 mg PO DAILY #0 tab 09/22/17 07/20/19 History aspirin [Ecotrin Low Strength] 81 mg PO QAM #30 tab 08/13/18 07/20/19 Rx fluticasone propionate 50 2 sprays INTNAS DAILY PRN 01/10/19 07/20/19 History mcg/actuation nasal spray,suspension lutein 20 mg capsule 20 mg PO DAILY cap 01/10/19 07/20/19 History metoprolol tartrate 50 mg tablet 50 mg PO BID #180 tab 01/10/19 07/20/19 History thiamine HCl (vitamin B1) 100 mg 100 mg PO DAILY tab 01/10/19 07/20/19 History tablet doxazosin 4 mg tablet 4 mg PO DAILY #90 tab 01/13/19 07/20/19 Rx blood sugar diagnostic #10 ea 01/30/19 07/06/19 History insulin lispro 100 unit/mL See Rx Instructions SQ .COMPLEX ml 01/30/19 07/20/19 History subcutaneous solution insulin syringe-needle U-100 0.3 #10 ea 01/30/19 07/06/19 History mL 31 gauge x 5/16" lancets #50 ea 01/30/19 07/06/19 History folic acid 1 mg tablet 1 mg PO DAILY #90 tab 02/07/19 07/20/19 Rx finasteride 5 mg tablet 5 mg PO DAILY #30 tab 03/07/19 07/20/19 Rx silodosin 8 mg capsule 8 mg PO QPM #30 cap 03/07/19 07/20/19 Rx atorvastatin 40 mg tablet 40 mg PO DAILY #90 tab 03/31/19 07/20/19 Rx losartan 100 mg tablet 100 mg PO DAILY #90 tab 03/31/19 07/20/19 Rx nitroglycerin 0.4 mg sublingual 0.4 mg SUBLINGUAL UD PRN #25 tab 03/31/19 07/20/19 Rx tablet mirabegron 50 mg tablet,extended 50 mg PO DAILY #90 tab 04/11/19 07/20/19 Rx release 24 hr clopidogrel 75 mg tablet 75 mg PO DAILY #90 tab 04/26/19 07/20/19 Rx levothyroxine 25 mcg tablet 25 mcg PO DAILY #30 tab 05/03/19 07/20/19 Rx insulin glargine [Lantus U-100 20 units SQ QPM 07/20/19 07/20/19 History Insulin] warfarin [Coumadin] 0 mg PO DAILY 07/20/19 07/20/19 History Past Med/Surg History Medical History Abnormal EKG (Acute) Acquired claw toe of left foot (Acute) Acquired claw toe of right foot (Acute) Acquired hallux valgus of right foot (Acute) Anti-cardiolipin antibody positive (Acute) Anticoagulant long-term use (Acute) Ascending aorta dilation (Acute) Benign localized hyperplasia of prostate with urinary obstruction (Acute) BPH loc w urin obs/LUTS CAD (coronary artery disease) (Acute) Callus (Acute) Cerebrovascular ischemia, transient (Acute) 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 (Acute) Diabetic peripheral neuropathy (Acute) Diabetic retinopathy (Acute) Dysphagia, oropharyngeal phase (Acute) Factor V Leiden mutation (Acute) Fatigue (Acute) GERD without esophagitis (Acute) Glaucoma (Acute) Gout (Acute) Hallux valgus (acquired), left foot (Acute) Hoarseness (Acute) Hyperlipemia (Chronic) Hypertension (Chronic) Hypothyroidism (Acute) Insomnia (Acute) Irregular heartbeat (Acute) Kidney disease, chronic, stage II (mild, 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) (Acute) Left inguinal hernia (Acute) Leukopenia (Acute) Microscopic hematuria (Acute) Nocturia (Acute) Organic hypersomnia (Acute) Primary hypercoagulable state (Acute) Proteinuria (Acute) Type 1 diabetes mellitus with kidney complication, with long-term current use of insulin (Acute) 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, with long-term current use of insulin (Acute) 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) Vertebral artery stenosis/occlusion (Acute) Vitamin D deficiency (Acute) Surgical History H/O hernia repair Hx of appendectomy S/P coronary artery stent placement Family History Mother COPD (chronic obstructive pulmonary disease) Coronary heart disease Social History Preferred Language: Czech Communication Ability: Effective Cigarette Roller Required: No Beliefs That Will Affect Care: None marital status: Current Living Situation: Spouse Feels Safe at Home: Yes Smoking Status: Never smoker Second Hand Exposure: Yes ; Hx Alcohol Use: Yes Hx Substance Use: No caffeine: Yes Seatbelt Use: always Review of Systems Review of Systems: All systems reviewed & are unremarkable except as noted in HPI & below Physical Exam Constitutional: WD/WN, vitals as above well developed Eyes: PERRL, conjunctivae normal, anicteric sclerae ENMT: external ear and nose normal, oropharynx normal Neck: trachea midline, no thyromegaly Respiratory: normal respiratory effort, lungs clear to auscultation Cardiovascular: RRR, no murmur, no edema Gastrointestinal (Abdomen): normal bowel sounds, soft, nontender, no hepatosplenomegaly Musculoskeletal: no cyanosis or clubbing, extremities motor strength 5/5 Skin: no rashes, warm and dry Neurologic: PERRL, EOMI, accommodation nl, no face palsy, no dysarthria CN's II-XI intact bilaterally mild dysarthria Psychiatric: A+Ox3, euthymic affect Lymphatic: no cervical or axillary lymphadenopathy Results & Data Vital Signs (Past 12 Hours) Vital Signs Temp Pulse Pulse Resp BP BP Pulse Ox 07/20/19 20:00 65 15 220/70 H 96 07/20/19 19:18 70 16 197/78 H 97 07/20/19 18:37 72 18 184/69 H 96 07/20/19 17:56 74 16 187/68 H 96 07/20/19 17:15 36.8 C 75 16 188/71 H 98 Code Status & VTE Plan Code Status Full Code VTE Prophylaxis Plan VTE Prophylaxis will be ordered: Yes PG Care Time/CCT Total # of Minutes Spent Total Time Spent with Patient: Total time spent is greater than 50% in coordination of care (as documented) at patient's floor/unit and/or counseling patient: Coding Level of Care Code 79848 Initial Inpt Care Lvl 3 Diagnoses TIA (transient ischemic attack) G45.9 Dyslipidemia E78.5 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 transplanted heart: [place] heart Associated angina: without angina CVA (cerebral vascular accident) I63.9 CVA mechanism: unspecified Anti-cardiolipin antibody positive R76.0 Alcohol abuse F10.10 Benign prostatic hyperplasia N40.0 Hypertension I10 Constipation, acute K59.00 (1) CAD (coronary artery disease) Coronary Disease-Associated Artery/Lesion type: [place] artery [place] vs. transplanted heart: [place] heart Associated angina: without angina Qualified Code(s): I25.10 - Atherosclerotic heart disease of [place] coronary artery without angina pectoris (2) CVA (cerebral vascular accident) CVA mechanism: unspecified Qualified Code(s): I63.9 - Cerebral infarction, unspecified
--- NOTE | 2019-07-20 21:13 | Magnetic Resonance Report ---
MRI OF THE BRAIN WITHOUT CONTRAST CLINICAL HISTORY: possible stroke SLURRED SPEECH. COMPARISON STUDY: CT scan dated 07/20/2019 FINDINGS: Sagittal T1, axial diffusion, proton density and T2 weighted axial, coronal FLAIR, and axial T1-weigh samina images were acquired. No intra or extra-axial mass lesions are visualized Axial diffusion-weighted images reveal no evidence of acute or subacute infarction. There is mild ventricular prominence, finding which is felt to be secondary to volume loss Proton density T2-weighted and FLAIR images reveal scattered foci of increased T2 signal within the w grant matter, likely on a small vessel basis. There are no abnormal flow voids. The study is compromised due to patient motion artifact. IMPRESSION: 1. Motion degraded study 2. No acute intracranial findings 2. No evidence of intracranial mass in this noncontrast study 3. No evidence of acute or subacute infarction ACT 112: Negative or not required by law. Electronically signed by: Naresh Beyer M.D. 07/20/2019 9:11 PM
[2019-07-20] MEDS ORDERED: HydrALAZINE 10 MG TAB PO PRN (21:43)
[2019-07-20] MEDS ORDERED: GLUCAGON FOR INJ 1 MG VIAL SQ PRN ×2 (21:43→22:30)
[2019-07-20] MEDS ORDERED: ONDANSETRON INJ 2 MG/ML 2 ML VIAL IV PRN (21:43)
[2019-07-20] MEDS ORDERED: GLUCOSE 40% GEL 15 GM TUBE PO PRN ×2 (21:43→22:30)
[2019-07-20] MEDS ORDERED: POLYETHYLENE (MIRALAX) 17 GM PACK PO PRN (21:43)
[2019-07-20] MEDS ORDERED: NITROGLYCERIN SL 0.4 MG/TAB TAB SL PRN (21:43)
[2019-07-20] MEDS ORDERED: SILODOSIN 8 MG PO SCH (21:43)
[2019-07-20] MEDS ORDERED: FLUTICASONE PROPIONATE NA SPR 16 GM BTL NAE PRN (21:43)
[2019-07-20] MEDS ORDERED: ACETAMINOPHEN 325 MG TAB PO PRN (21:43)
[2019-07-20] MEDS ORDERED: PHARMACIST DISCHARGE MED REC CONSULT PRN (21:43)
[2019-07-20] MEDS ORDERED: DEXTROSE 50% 50 ML SYRINGE IV PRN ×2 (21:43→22:30)
[2019-07-20] MEDS ORDERED: MAGNESIUM HYDROXIDE SUSP 30 ML UDC PO PRN (21:43)
[2019-07-20] MEDS ORDERED: ALUMINUM/MAGNESIUM SUSP 30 ML UDC PO PRN (21:43)
[2019-07-20] MEDS ORDERED: CARBOHYDRATES FOR HYPOGLYCEMIA PO PRN ×2 (21:43→22:30)
[2019-07-20] MEDS ORDERED: GLUCOSE 10 TABS/TUBE PO PRN ×2 (21:43→22:30)
[2019-07-20] MEDS ORDERED: PHARMACY GLYCEMIC MGMT CONSULT PRN (21:57)
--- NOTE | 2019-07-20 22:46 | Emergency Department Note ---
Entered by Hillary Bello acting as a scribe for Colin Costa History of Present Illness General Chief complaint: Stroke/CVA Symptoms Stated complaint: SLURRED SPEECH, BALANCE IS OFF- HX STROKE Time Seen by Provider: 07/20/19 17:21 Source: family () History of Present Illness Onset (ago): day(s) (last night) Location: head, upper extremity and lower extremity Maximum Pain Intensity: 0 Quality: + other (CVA symptoms) Associated symptoms: + other (Positive slurring of speech, being off balance. ) The patient is a 78 year old male who presents to the ED with complaints of CVA symptoms. He has a hx of DM type 1 and Factor 5. He is on coumadin. He has a hx of strokes in the past. He is accompanied by his who states the patient's last known well time was last night. His states this morning, the patient woke up abnormally late at 0930. She states she gave him his medications but his balance seemed slightly off. During lunch at 1400, she states he became more off balance. His states after physical therapy at 1500, the patient had difficulty speaking. She reports she thought he had low blood sugar, so she gave him diabetes medication. She states after the medication, his speech was slurring, so they came to the ED. His reports the patient has not had any blood transfusions in the past month. His online community manager is Dr. Velasquez. Home Medications Home Medications Medication Instructions Recorded Confirmed Type multivitamin 1 tab PO DAILY #0 11/28/08 07/20/19 History docusate sodium 300 mg PO QPM #0 cap 01/19/17 07/20/19 History magnesium 250 mg PO DAILY #0 01/19/17 07/20/19 History pyridoxine (vitamin B6) 100 mg PO DAILY #0 tab 09/22/17 07/20/19 History aspirin [Ecotrin Low Strength] 81 mg PO QAM #30 tab 08/13/18 07/20/19 Rx fluticasone propionate 50 2 sprays INTNAS DAILY PRN 01/10/19 07/20/19 History mcg/actuation nasal spray,suspension lutein 20 mg capsule 20 mg PO DAILY cap 01/10/19 07/20/19 History metoprolol tartrate 50 mg tablet 50 mg PO BID #180 tab 01/10/19 07/20/19 History thiamine HCl (vitamin B1) 100 mg 100 mg PO DAILY tab 01/10/19 07/20/19 History tablet doxazosin 4 mg tablet 4 mg PO DAILY #90 tab 01/13/19 07/20/19 Rx blood sugar diagnostic #10 ea 01/30/19 07/06/19 History insulin lispro 100 unit/mL See Rx Instructions SQ .COMPLEX ml 01/30/19 07/20/19 History subcutaneous solution insulin syringe-needle U-100 0.3 #10 ea 01/30/19 07/06/19 History mL 31 gauge x 5/16" lancets #50 ea 01/30/19 07/06/19 History folic acid 1 mg tablet 1 mg PO DAILY #90 tab 02/07/19 07/20/19 Rx finasteride 5 mg tablet 5 mg PO DAILY #30 tab 03/07/19 07/20/19 Rx silodosin 8 mg capsule 8 mg PO QPM #30 cap 03/07/19 07/20/19 Rx atorvastatin 40 mg tablet 40 mg PO DAILY #90 tab 03/31/19 07/20/19 Rx losartan 100 mg tablet 100 mg PO DAILY #90 tab 03/31/19 07/20/19 Rx nitroglycerin 0.4 mg sublingual 0.4 mg SUBLINGUAL UD PRN #25 tab 03/31/19 07/20/19 Rx tablet mirabegron 50 mg tablet,extended 50 mg PO DAILY #90 tab 04/11/19 07/20/19 Rx release 24 hr clopidogrel 75 mg tablet 75 mg PO DAILY #90 tab 04/26/19 07/20/19 Rx levothyroxine 25 mcg tablet 25 mcg PO DAILY #30 tab 05/03/19 07/20/19 Rx insulin glargine [Lantus U-100 20 units SQ QPM 07/20/19 07/20/19 History Insulin] warfarin [Coumadin] 0 mg PO DAILY 07/20/19 07/20/19 History Allergies Allergy/AdvReac Type Severity Reaction Status Date / Time clindamycin Allergy Intermediate Rash Verified 07/20/19 19:01 Penicillins Allergy Unknown Unknown Verified 07/20/19 19:01 Sulfa (Sulfonamide Allergy Unknown HIVES Verified 07/20/19 19:01 Antibiotics) lisinopril Allergy Unknown Verified 07/20/19 19:01 Past Med/Surg History Medical History Abnormal EKG (Acute) Acquired claw toe of left foot (Acute) Acquired claw toe of right foot (Acute) Acquired hallux valgus of right foot (Acute) Anti-cardiolipin antibody positive (Acute) Anticoagulant long-term use (Acute) Ascending aorta dilation (Acute) Benign localized hyperplasia of prostate with urinary obstruction (Acute) BPH loc w urin obs/LUTS CAD (coronary artery disease) (Acute) Callus (Acute) Cerebrovascular ischemia, transient (Acute) 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 (Acute) Diabetic peripheral neuropathy (Acute) Diabetic retinopathy (Acute) Dysphagia, oropharyngeal phase (Acute) Factor V Leiden mutation (Acute) Fatigue (Acute) GERD without esophagitis (Acute) Glaucoma (Acute) Gout (Acute) Hallux valgus (acquired), left foot (Acute) Hoarseness (Acute) Hyperlipemia (Chronic) Hypertension (Chronic) Hypothyroidism (Acute) Insomnia (Acute) Irregular heartbeat (Acute) Kidney disease, chronic, stage II (mild, 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) (Acute) Left inguinal hernia (Acute) Leukopenia (Acute) Microscopic hematuria (Acute) Nocturia (Acute) Organic hypersomnia (Acute) Primary hypercoagulable state (Acute) Proteinuria (Acute) Type 1 diabetes mellitus with kidney complication, with long-term current use of insulin (Acute) 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, with long-term current use of insulin (Acute) 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) Vertebral artery stenosis/occlusion (Acute) Vitamin D deficiency (Acute) Surgical History H/O hernia repair Hx of appendectomy S/P coronary artery stent placement Family History Mother COPD (chronic obstructive pulmonary disease) Coronary heart disease Social History Preferred Language: Mont[place]erratian Communication Ability: Impaired 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 and A total of 10 systems reviewed and were otherwise negative Physical Exam Vital Signs Vital Signs - 24 hr 07/20/19 17:15 07/20/19 17:56 07/20/19 18:37 Temperature 36.8 C Temperature Source Oral Pulse Rate 75 Pulse Rate [Apical] 74 72 Pulse Rhythm Regular Pulse Rhythm [Apical] Regular Regular Pulse Strength Normal Pulse Strength [Apical] Normal Normal Respiratory Rate 16 16 18 Respiratory Effort / Characteristics Non-Labored Non-Labored Spontaneous Non-Labored Spontaneous Respiratory Depth Normal Normal Normal Respiratory Pattern Regular Regular Regular Blood Pressure 188/71 H Blood Pressure [Left Arm] 187/68 H 184/69 H Blood Pressure Mean 110 Blood Pressure Mean [Left Arm] 107 107 Blood Pressure Position Sitting Blood Pressure Position [Left Arm] Sitting Sitting Pulse Oximetry 98 96 96 Oxygen Delivery Method Room Air Room Air Room Air Sepsis Recent Fever Within 48 Hours No Sepsis Action Taken by Nursing No Action Required 07/20/19 19:18 07/20/19 20:00 Temperature Temperature Source Pulse Rate Pulse Rate [Apical] 70 65 Pulse Rhythm Pulse Rhythm [Apical] Pulse Strength Pulse Strength [Apical] Respiratory Rate 16 15 Respiratory Effort / Characteristics Respiratory Depth Respiratory Pattern Blood Pressure Blood Pressure [Left Arm] 197/78 H 220/70 H Blood Pressure Mean Blood Pressure Mean [Left Arm] 117 120 Blood Pressure Position Blood Pressure Position [Left Arm] Pulse Oximetry 97 96 Oxygen Delivery Method Room Air Room Air Sepsis Recent Fever Within 48 Hours Sepsis Action Taken by Nursing GENERAL: He is oriented to person, place, and time. He appears well-developed and well-nourished. He does not appear distressed. HENT: Exam performed. - Head: Normocephalic and atraumatic. - Right Ear: External ear normal. No mastoid tenderness. - Left Ear: External ear normal. No mastoid tenderness. - Mouth/Throat: The oropharynx is clear and moist. No trismus in the jaw. No dental abscesses or uvula swelling. No oropharyngeal exudate or tonsillar abscesses. EYES: Conjunctivae and EOM are normal. Pupils are equal, round, and reactive to light. Right eye exhibits no discharge. Left eye exhibits no discharge. No scleral icterus. NECK: Normal range of motion. Neck supple. No JVD present. No spinous process tenderness present. No carotid bruit present. No rigidity. No tracheal deviation and normal range of motion present. No Brudzinski's sign and no Kernig's sign noted. CV: Normal rate, regular rhythm, normal heart sounds and intact distal pulses. There is no peripheral edema. Palpable radial pulses bue. PULM/CHEST: Effort normal and breath sounds normal. No respiratory distress. No stridor. He has no wheezes. He has no rales. - Chest Wall: He exhibits no tenderness. ABD: The abdomen is soft. Bowel sounds are normal. He has no distension. No mass is present. There is no tenderness. There is no rebound, no guarding, no Goldman's sign and no tenderness at McBurney's point. Rovsig negative. MUSC/SKEL: Normal range of motion. There is no peripheral edema, tenderness or deformity. LYMPH: No cervical adenopathy. NEURO: NIH stroke scale 6. 1 for dysarthria. 1 for aphasia. 2 for cerebellar ataxia. 2 for orientation SKIN: Skin is warm and dry. He is not diaphoretic. Course Course 172: Past medical records reviewed. The patient was evaluated in room B1. A complete history and physical exam was performed.A code stroke was called. NIH stroke scale of 6. I spoke with Benita Finn [facility]. He asked a CTA of the head and neck be conducted if CT of the head did not show acute hemorrhage. I reviewed CT of the head which had no significant findings. CTA of the head and neck are being conducted. 174: POC INR machine keeps reading error. 181: Discussed the patient's case with Benita [facility]. He recommends no tPA in the elevated INR and to admit the patient to medicine. He states no aspirin is necessary at this time as the patient already took aspirin and Plavix today. 1900: Discussed the patient's case with Dr. Pinto, [facility] Hospitalist. The patient will be evaluated for further management. Administered Medications Discontinued Medications Sodium Chloride (Nss 1000ml) 1,000 mls @ 80 mls/hr IV .[id number] PENNY Stop: 08/19/19 18:29 Last Infusion: 07/20/19 21:48 Dose: 0 mls/hr Documented by: [id number] Infusion: 07/20/19 20:30 Dose: 0 mls/hr Documented by: [id number] Admin: 07/20/19 18:37 Dose: 80 mls/hr Documented by: [id number] Ioversol (Optiray 320 125ml) 118 ml IV ONCE PRN PRN Reason: Interaction Checking Stop: 07/24/19 17:33 Last Admin: 07/20/19 17:35 Dose: 118 ml Documented by: [id number] Ketorolac Tromethamine (Toradol) 15 mg IV NOW STA Stop: 07/20/19 18:40 Last Admin: 07/20/19 18:47 Dose: 15 mg Documented by: [id number] Critical Care Time Critical Care Time: Yes Total Critical Care Time: 50 I have personally spent approximate 50 minutes of critical care time in the direct management of this patient. This includes bedside care, interpretation of diagnostic studies, and testing, discussion with consultants, patient, and family members, and other required patient management activities. This approximately 50 minutes is in excess of all separately billable procedures. Medical Decision Making Medical Records Attestation: I reviewed the patient's medical records. Home Medications Current Medication List: was personally reviewed by me Laboratory Data Attestation: I reviewed the patient's lab results. Result diagrams: 07/20/19 17:23 07/20/19 17:23 Lab Results 07/20/19 07/20/19 07/20/19 Range/Units 17:23 17:23 17:23 WBC 6.72 (4.8-10.8) K/uL RBC 4.36 L (4.7-6.1) M/uL Hgb 15.5 (14.0-18.0) g/dL Hct 43.2 (42-52) % MCV 99.1 (80-100) fL MCH 35.6 H (25-34) pg MCHC 35.9 (32-36) g/dL RDW Std Deviation 44.4 (36.4-46.3) fL RDW Coeff of Mary 12.2 (11.5-14.5) % Plt Count 128 L (130-400) K/uL MPV 9.9 (7.4-10.4) fL Immature Gran % (Auto) 0.3 % Neut % (Auto) 62.3 % Lymph % (Auto) 24.6 % Crosby % (Auto) 11.2 % Eos % (Auto) 1.5 % Baso % (Auto) 0.1 % Immature Gran # (Auto) 0.02 (0.00-0.02) K/uL Neut # (Auto) 4.19 (1.4-6.5) K/uL Lymph # (Auto) 1.65 (1.2-3.4) K/uL Crosby # (Auto) 0.75 H (0.11-0.59) K/uL Eos # (Auto) 0.10 (0-0.5) K/uL Baso # (Auto) 0.01 (0-0.2) K/uL PT 20.6 H (9.0-12.0) Seconds POC INR (0.9-1.1) INR 2.1 H (0.9-1.1) APTT 30.3 (21.0-31.0) Seconds PTT Ratio 1.1 Sodium (136-145) mmol/L Potassium (3.5-5.1) mmol/L Chloride (98-107) mmol/L Carbon Dioxide (21-32) mmol/L Anion Gap (3-11) BUN (7-18) mg/dl Creatinine (0.6-1.4) mg/dl Est Cr Clr Drug Dosing ml/min Est GFR ( Amer) Est GFR (Non-Af Amer) BUN/Creatinine Ratio (10-20) Glucose (70-99) mg/dl POC Glucose (70-99) mg/dl Calcium (8.5-10.1) mg/dl Magnesium (1.8-2.4) mg/dl Total Bilirubin (0.2-1) mg/dl AST (15-37) U/L ALT (12-78) U/L Alkaline Phosphatase (45-117) U/L Troponin I (0-0.045) ng/ml Total Protein (6.4-8.2) gm/dl Albumin (3.4-5.0) gm/dl Globulin (2.5-4.0) gm/dl Albumin/Globulin Ratio (0.9-2) Blood Type B Positive Antibody Screen NEGATIVE 02/13/20 02/13/20 02/13/20 Range/Units 17:23 17:23 17:49 WBC (4.8-10.8) K/uL RBC (4.7-6.1) M/uL Hgb (14.0-18.0) g/dL Hct (42-52) % MCV (80-100) fL MCH (25-34) pg MCHC (32-36) g/dL RDW Std Deviation (36.4-46.3) fL RDW Coeff of Mary (11.5-14.5) % Plt Count (130-400) K/uL MPV (7.4-10.4) fL Immature Gran % (Auto) % Neut % (Auto) % Lymph % (Auto) % Crosby % (Auto) % Eos % (Auto) % Baso % (Auto) % Immature Gran # (Auto) (0.00-0.02) K/uL Neut # (Auto) (1.4-6.5) K/uL Lymph # (Auto) (1.2-3.4) K/uL Crosby # (Auto) (0.11-0.59) K/uL Eos # (Auto) (0-0.5) K/uL Baso # (Auto) (0-0.2) K/uL PT (9.0-12.0) Seconds POC INR 2.2 H (0.9-1.1) INR (0.9-1.1) APTT (21.0-31.0) Seconds PTT Ratio Sodium 136 (136-145) mmol/L Potassium 4.5 (3.5-5.1) mmol/L Chloride 101 (98-107) mmol/L Carbon Dioxide 28 (21-32) mmol/L Anion Gap 7.0 (3-11) BUN 24 H (7-18) mg/dl Creatinine 1.54 H (0.6-1.4) mg/dl Est Cr Clr Drug Dosing 44.7 ml/min Est GFR ( Amer) 49.4 Est GFR (Non-Af Amer) 42.6 BUN/Creatinine Ratio 15.3 (10-20) Glucose 269 H (70-99) mg/dl POC Glucose 258 H (70-99) mg/dl Calcium 9.2 (8.5-10.1) mg/dl Magnesium 2.4 (1.8-2.4) mg/dl Total Bilirubin 0.8 (0.2-1) mg/dl AST 42 H (15-37) U/L ALT 57 (12-78) U/L Alkaline Phosphatase 68 (45-117) U/L Troponin I < 0.015 (0-0.045) ng/ml Total Protein 7.5 (6.4-8.2) gm/dl Albumin 4.2 (3.4-5.0) gm/dl Globulin 3.3 (2.5-4.0) gm/dl Albumin/Globulin Ratio 1.3 (0.9-2) Blood Type Antibody Screen Imaging Data Radiologist's Impression: Radiology results as stated below per my review and the radiologist's interpretation: CT head/brain wo con CLINICAL HISTORY: Stroke evaluation CONFUSION, DYSARTHRIA. COMPARISON STUDY: 08/12/2018 TECHNIQUE: Axial CT of the brain is performed from the vertex to the skull base. IV contrast was not administered for this examination. A dose lowering technique was utilized adhering to the principles of ALARA. CT DOSE: 537.48 mGy.cm FINDINGS: No intra or extra-axial mass lesions are visualized. There is no CT evidence of acute cortical infarction. There is no evidence of midline shift. There is no acute hemorrhage. No calvarial fractures are visualized. There are patchy white matter hypodensities likely on a small vessel basis. There is mild ventricular prominence, finding which is felt to be secondary to volume loss. There is no evidence of acute sinusitis IMPRESSION: No acute intracranial findings ACT 112: Negative or not required by law. Electronically signed by: Naresh Beyer M.D. 07/20/2019 5:[address] angio neck with con CLINICAL HISTORY: Acute stroke COMPARISON STUDY: August 12, 2018 TECHNIQUE: CT angiography was performed from the aortic arch to the skull base. MIP imaging was performed. The patient was scanned in a dynamic helical fashion during intravenous administration of 118 cc of Optiray 320. A dose lowering technique was utilized adhering to the principles of ALARA. CT DOSE: 582.98 mGy.cm Technique: CT angiogram of the carotid and vertebral arteries was obtained using intravenous contrast and 3-D reconstruction. NASCET criteria was utilized. Findings: The right carotid revealed no evidence of aneurysm and no evidence of dissection. There is no evidence of hemodynamic significant stenosis. Calcified atheromatous plaque is present at the carotid bulb without evidence of significant stenosis. The left carotid revealed no evidence of hemodynamic significant stenosis. There is no evidence of aneurysm. There is no evidence of dissection. Calcified atheromatous plaque is present the level of the carotid bulb without evidence of significant stenosis There is no evidence for hemodynamically significant right vertebral artery stenosis. There is moderate left vertebral artery narrowing at the C5-6 level due to facet joint arthropathy the basilar artery is a relatively diminutive vessel. There is no evidence of vertebral artery dissection IMPRESSION: 1. Calcific atheromatous plaque at the level the carotid bifurcations. No evidence of hemodynamically significant carotid stenosis 2. 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 Electronically signed by: Naresh Beyer M.D. 07/20/2019 5:52 PM CTA ANGIOGRAPHY OF THE HEAD CLINICAL HISTORY: code stroke COMPARISON STUDY: CTA of the head August 12, 2018. Head CT performed earlier today. TECHNIQUE: Helical axial images of the head were obtained following uneventful intravenous administration of 118 cc of Optiray 320. Sagittal and coronal branden nstructions were viewed as well as maximal intensity projections on an independent 3-D workstation. Automated exposure control was utilized for the study. A dose lowering technique was utilized adhering to the principles of ALARA. FINDINGS: No acute intracranial hemorrhage, midline shift or mass effect is present. Ventricular system is stable. Basilar cisterns are patent. There are no extra axial collections. Moderate stenosis of the petrous portion of the left internal carotid artery is unchanged. Mild to moderate stenosis of the petrous portion of the right internal carotid arteries also unchanged and CTA of August 12, 2018. There is moderate plaque within the bilateral cavernous carotids. Note is made of persistence of the right posterior cerebral artery as well as persistence of the left posterior cerebral artery. No intraluminal thrombus or abrupt vessel cut off is identified within the intracranial vessels. 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 IMPRESSION: 1. No intracranial aneurysm, abrupt vessel cut off or intraluminal thrombus. 2. No significant change since CTA of August 12, 2018. Moderate stenosis of the petrous portion of the left internal carotid artery and the basilar artery. ACT 112: Negative or not required by law. Electronically signed by: Billy Dominguez M.D. 07/20/2019 5:50 PM ECG Data Attestation: I personally reviewed and interpreted this ECG as follows: Indication: + other (CVA symptoms) Rate (beats per minute): 73 Rhythm: + sinus rhythm ECG Intervals/blocks: + Normal QRS, + Normal RI and + Normal QT-c ECG ST segments: no ST depression and no ST elevation Blood Pressure Blood Pressure Findings: Elevated blood pressure Blood Pressure Disposition: further management by hospitalist KAYA Narrative 172: Past medical records reviewed. The patient was evaluated in room B1. A complete history and physical exam was performed.A code stroke was called. NIH s troke scale of 6. I spoke with Benita [facility]. He asked a CTA of the head and neck be conducted if CT of the head did not show acute hemorrhage. I reviewed CT of the head which had no significant findings. CTA of the head and neck are being conducted. 174: POC INR machine keeps reading error. 181: Discussed the patient's case with Benita [facility]. He recommends no tPA in the elevated INR and to admit the patient to medicine. He states no aspirin is necessary at this time as the patient already took aspirin and Plavix today. 1900: Discussed the patient's case with Dr. Pinto, [facility] Hospitalist. The patient will be evaluated for further management. Impression & Plan CVA (cerebral vascular accident) Discharge Plan Visit Data *Final* Discharge Date/Time: 07/20/19 20:50 Chief Complaint: Stroke/CVA Symptoms Stated Complaint: SLURRED SPEECH, BALANCE IS OFF- HX STROKE ED Provider: Colin Costa Discharge Problem: CVA (cerebral vascular accident) Patient Disposition: Admitted As Inpatient Discharge Instructions Interventions: ED Discharge Assessment Last Done: 07/20/19 20:50 Discharge Problem: CVA (cerebral vascular accident) Qualifiers: CVA mechanism: unspecified Qualified Code(s): I63.9 - Cerebral infarction, unspecified The scribe's documentation has been prepared under my direction and personally reviewed by me in its entirety. I confirm that the note above accurately reflects all work, treatment, procedures, and medical decision making performed by me.
[2019-07-20] MEDS: DOCUSATE SODIUM 100 MG CAP PO SCH (23:28)
[2019-07-20] MEDS: FINASTERIDE 5 MG TAB PO SCH (23:29)
[2019-07-20] MEDS: WARFARIN SOD 2.5 MG TAB PO SCH (23:29)
[2019-07-20] MEDS: DOXAZosin MESYLATE 4 MG TAB PO SCH (23:29)
[2019-07-20] MEDS: ATORVASTATIN 40 MG TAB PO SCH (23:29)
[2019-07-20] MEDS: METOPROLOL TARTRATE 50 MG TAB PO SCH (23:29)
[2019-07-20] MEDS: INSULIN ASPART 100 UNITS/ML 3 ML PEN SC SCH (23:32)
[2019-07-21] MEDS ORDERED: INSULIN ASPART 100 UNITS/ML 3 ML PEN SC SCH (04:00)
[2019-07-21 06:15] LABS: Estimated Average Glucose 186 mg/dl; Hemoglobin A1C 8.1 % (4.5-5.6)
[2019-07-21] MEDS: LEVOTHYROXINE SODIUM 25 MCG TABLET PO SCH (06:39)
[2019-07-21 07:12] LABS: Basophils # (auto) 0.01 K/uL (0-0.2); Basophils % (auto) 0.2 %; Eosinophils # (auto) 0.14 K/uL (0-0.5); Eosinophils % (auto) 2.9 %; Hematocrit (blood only) 40.6 % (42-52); Hemoglobin 14.2 g/dL (14.0-18.0); Immature Granulocytes # (auto) 0.02 K/uL (0.00-0.02); Immature Granulocytes % (auto) 0.4 %; Lymphocytes # (auto) 1.42 K/uL (1.2-3.4); Mean Corpuscular Hemoglobin 35.2 pg (25-34); Mean Corpuscular Volume 100.7 fL (80-100); Mean Platelet Volume 10.4 fL (7.4-10.4); Monocytes # (auto) 0.55 K/uL (0.11-0.59); Monocytes % (auto) 11.2 %; Neutrophils # (auto) 2.76 K/uL (1.4-6.5); Neutrophils % (auto) 56.3 %; Platelet Count 105 K/uL (130-400); RDW Coefficient of Variation 12.5 % (11.5-14.5); RDW Standard Deviation 45.7 fL (36.4-46.3); Red Blood Count 4.03 M/uL (4.7-6.1)
[2019-07-21 07:18] LABS: Prothrombin Time 19.8 Seconds (9.0-12.0)
[2019-07-21 07:55] LABS: Albumin Globulin Ratio 1.2 (0.9-2); Albumin Level 3.4 gm/dl (3.4-5.0); BUN Creatinine Ratio 16.9 (10-20); Bilirubin,Total 1.1 mg/dl (0.2-1); Calcium 8.9 mg/dl (8.5-10.1); Creatinine Clr Calc Pharmacy 56.6 ml/min; Est GFR (African American) 68.1; Est GFR (Non-African American) 58.8; Globulin 2.8 gm/dl (2.5-4.0); Potassium 3.8 mmol/L (3.5-5.1); Total Protein 6.2 gm/dl (6.4-8.2)
--- NOTE | 2019-07-21 08:17 | Neurology Consultation ---
Date of Consultation July 21, 2019 Assessment & Plan (1) TIA (transient ischemic attack): (2) Dysarthria: (3) Hypertension: (4) Basilar artery stenosis: (5) Carotid stenosis, left: (6) Vertebral artery stenosis/occlusion: (7) Factor V Leiden mutation: (8) Diabetic peripheral neuropathy: (9) Hyperlipemia: Patient had an episode of slurred speech and word-finding problems with increased balance issues and headache July 20. He has largely recovered today and has some residual cognitive issues and balance problems. I suspect mild underlying dementia. Etiology of his neurologic issues is likely secondary to his hypertension and blood pressure fluctuation. This could be called a TIA but the source maybe vasospasm. MRI of the brain shows no new stroke and is relatively unchanged compared to 2015. The patient has left carotid, left vertebral, and basilar artery stenosis as before. The CT angiography is unchanged compared to August of 2018. Currently she is on maximal on medical therapy, including 81 mg aspirin, 75 mg clopidogrel, and warfarin (INR is therapeutic). he has factor 5 Leiden mutation and positive anticardiolipin antibodies which put him at risk for stroke. He also has hypertension, diabetes, and dyslipidemia as stroke risk factors. Patient has a diabetic polyneuropathy which is chronic and has not changed. Recommendations: 1. Control blood pressure, aiming for a mean arterial pressure of 95-100. He has a very wide pulse pressure. 2. Better glucose control trying to lower hemoglobin A1c closer to 7. 3. Continue atorvastatin 40 mg daily. He would not be a high dose statin candidate given his age and condition as well as his total cholesterol less than 150. 4. There is really nothing further I can do from a medication standpoint but I would continue the aspirin, clopidogrel, and anticoagulant as you are doing. 5. If the patient needs to discontinue alcohol use as this may be leading to some cognitive problems. I believe he may have some underlying mild dementia currently. 6. PT, OT, and speech therapy as needed. Overall, I spent a total 110 minutes with this case including review of records, review of MRI and CT films (with Dr. Dominguez in Radiology), direct evaluation the patient at bedside, and discussion of the case with the patient and RN at bedside, Dr. Dominguez, and Dr. Cho including differential diagnosis and treatment options. History of Present Illness Reason for Consultation: Patient is a 78-year-old, who I was asked to see at the request of Dr. Pinto, for neurologic consultation regarding stroke versus TIA Requesting Physician: Dr. Pinto Attending Physician: Jonah Pinto MD History of Present Illness Patient has a history of insulin-dependent diabetes, type 1, coronary artery disease, hypertension, dyslipidemia, sleep apnea, factor 5 Leiden, and positive anticardiolipin antibodies. Patient was seen by Dr. Dial in March of 2012 in consultation for involuntary vocalizations. There were no motor tics and no other issues including no dementia or Tourette's diagnoses. These vocalizations were mostly nonspecific an MRI at that time was unremarkable. In October of 2017 patient had a 20 minutes episode word-finding difficulties. MRI of the brain showed some tiny old nonspecific small vessel ischemic changes but no stroke. In August of 2018, the patient was again seen by Dr. Dial for dysarthria, right- sided weakness, and some unsteady gait. This was felt to be a small posterior stroke or TIA but an MRI of the brain was not obtained at that time because of some abdominal surgical staple. Patient did well. He has remained on 81 mg aspirin, clopidogrel 75 mg, and Coumadin. CT angiography at that time revealed stenosis of the petrous portion of the left internal carotid artery, the basilar artery, and the left vertebral artery at the C5-6 level. These were graded at 50-60%. Apparently woke later than usual on July 20 getting up at 0930. The patient's said that his balance was off. At 1400 she noted that he was more off balance after having finished lunch. He finished physical therapy around 1500 and was noted to have some slurred speech and other word-finding problems. He was also somewhat confused. He arrived to the emergency room at 1715 with a temperature 36.8, pulse 75 and regular, respiratory rate 16, blood pressure 188/71, and O2 saturation 98%. On exam, he had some dysarthria, aphasia, ataxia of limbs and disorientation giving him an NIH stroke scale of 6. CT scan of the head was unremarkable. CT angiography of the head and neck revealed approximate 60% stenoses of the left vertebral artery at the C5-6 level, left internal carotid artery at the petrous level, and the basilar artery. There was some nonspecific plaque seen in the carotid bifurcations bilaterally. I reviewed these films and discussed them with Dr. Dominguez. They are no different than the previous studies of August 2018. MRI of the brain showed no acute stroke. There was some mild old small vessel ischemic changes and atrophy in general. Again, I reviewed these films and in comparison to the previous films of 2014 (also discussed with the Dr. Dominguez) there has been no significant change. CBC was looked unremarkable and Chem profile showed elevated glucose. Triglyceride was 118 in total cholesterol 138. This morning, patient feels much better. He still believes he is not thinking as sharp as he should and his balance is still a little bit off but he has no weakness or numbness, headache, or speech problems. Blood pressure was elevated overnight and is currently 168/64. Hemoglobin A1c is 8.1 Allergies Allergy/AdvReac Type Severity Reaction Status Date / Time clindamycin Allergy Intermediate Rash Verified 07/20/19 19:01 Penicillins Allergy Unknown Unknown Verified 07/20/19 19:01 Sulfa (Sulfonamide Allergy Unknown HIVES Verified 07/20/19 19:01 Antibiotics) lisinopril Allergy Unknown Verified 07/20/19 19:01 Home Medications Home Medications Medication Instructions Recorded Confirmed Type multivitamin 1 tab PO DAILY #0 11/28/08 07/20/19 History docusate sodium 300 mg PO QPM #0 cap 01/19/17 07/20/19 History magnesium 250 mg PO DAILY #0 01/19/17 07/20/19 History pyridoxine (vitamin B6) 100 mg PO DAILY #0 tab 09/22/17 07/20/19 History aspirin [Ecotrin Low Strength] 81 mg PO QAM #30 tab 08/13/18 07/20/19 Rx fluticasone propionate 50 2 sprays INTNAS DAILY PRN 01/10/19 07/20/19 History mcg/actuation nasal spray,suspension lutein 20 mg capsule 20 mg PO DAILY cap 01/10/19 07/20/19 History metoprolol tartrate 50 mg tablet 50 mg PO BID #180 tab 01/10/19 07/20/19 History thiamine HCl (vitamin B1) 100 mg 100 mg PO DAILY tab 01/10/19 07/20/19 History tablet doxazosin 4 mg tablet 4 mg PO DAILY #90 tab 01/13/19 07/20/19 Rx blood sugar diagnostic #10 ea 01/30/19 07/06/19 History insulin lispro 100 unit/mL See Rx Instructions SQ .COMPLEX ml 01/30/19 07/20/19 History subcutaneous solution insulin syringe-needle U-100 0.3 #10 ea 01/30/19 07/06/19 History mL 31 gauge x 5/16" lancets #50 ea 01/30/19 07/06/19 History folic acid 1 mg tablet 1 mg PO DAILY #90 tab 02/07/19 07/20/19 Rx finasteride 5 mg tablet 5 mg PO DAILY #30 tab 03/07/19 07/20/19 Rx silodosin 8 mg capsule 8 mg PO QPM #30 cap 03/07/19 07/20/19 Rx atorvastatin 40 mg tablet 40 mg PO DAILY #90 tab 03/31/19 07/20/19 Rx losartan 100 mg tablet 100 mg PO DAILY #90 tab 03/31/19 07/20/19 Rx nitroglycerin 0.4 mg sublingual 0.4 mg SUBLINGUAL UD PRN #25 tab 03/31/19 07/20/19 Rx tablet mirabegron 50 mg tablet,extended 50 mg PO DAILY #90 tab 04/11/19 07/20/19 Rx release 24 hr clopidogrel 75 mg tablet 75 mg PO DAILY #90 tab 04/26/19 07/20/19 Rx levothyroxine 25 mcg tablet 25 mcg PO DAILY #30 tab 05/03/19 07/20/19 Rx insulin glargine [Lantus U-100 20 units SQ QPM 07/20/19 07/20/19 History Insulin] warfarin [Coumadin] 0 mg PO DAILY 07/20/19 07/20/19 History Patient History Medical History Abnormal EKG (Acute) Acquired claw toe of left foot (Acute) Acquired claw toe of right foot (Acute) Acquired hallux valgus of right foot (Acute) Anti-cardiolipin antibody positive (Acute) Anticoagulant long-term use (Acute) Ascending aorta dilation (Acute) Benign localized hyperplasia of prostate with urinary obstruction (Acute) BPH loc w urin obs/LUTS CAD (coronary artery disease) (Acute) Callus (Acute) Cerebrovascular ischemia, transient (Acute) 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 (Acute) Diabetic peripheral neuropathy (Acute) Diabetic retinopathy (Acute) Dysphagia, oropharyngeal phase (Acute) Factor V Leiden mutation (Acute) Fatigue (Acute) GERD without esophagitis (Acute) Glaucoma (Acute) Gout (Acute) Hallux valgus (acquired), left foot (Acute) Hoarseness (Acute) Hyperlipemia (Chronic) Hypertension (Chronic) Hypothyroidism (Acute) Insomnia (Acute) Irregular heartbeat (Acute) Kidney disease, chronic, stage II (mild, 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) (Acute) Left inguinal hernia (Acute) Leukopenia (Acute) Microscopic hematuria (Acute) Nocturia (Acute) Organic hypersomnia (Acute) Primary hypercoagulable state (Acute) Proteinuria (Acute) Type 1 diabetes mellitus with kidney complication, with long-term current use of insulin (Acute) 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, with long-term current use of insulin (Acute) 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) Vertebral artery stenosis/occlusion (Acute) Vitamin D deficiency (Acute) Surgical History H/O hernia repair Hx of appendectomy S/P coronary artery stent placement Family History Mother , in her 60s of heart disease COPD (chronic obstructive pulmonary disease) Coronary heart disease Father , age 62 of melanoma Melanoma Social History Preferred Language: Norwegian Communication Ability: Impaired 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 Beliefs That Will Affect Care: None marital status: Current Living Situation: Spouse current occupational status: retired current occupation: Retired from [employer] age 40 to Feels Safe at Home: Yes Smoking Status: Never smoker Second Hand Exposure: No ; Hx Alcohol Use: Yes Alcohol type: hard liquor Alcohol Intake Frequency Comment: Two shots per night (or more) Hx Substance Use: No caffeine: Yes Seatbelt Use: always Review of Systems Constitutional: + fatigue and + weakness; no fever Eyes: no diplopia, no eye pain and no worsening vision Ear, Nose, Mouth, Throat: no ear pain, no tinnitus, no hearing loss, no dizziness, no snoring, no hoarseness and no dysphagia Respiratory: + dyspnea; no cough Cardiovascular: no chest pain, no palpitations and no lightheadedness Gastrointestinal: no abdominal pain, no nausea and no vomiting Genitourinary: + urinary incontinence; no dysuria Musculoskeletal: no back pain, no neck pain, no radicular pain, no joint pain and no myalgia Integumentary: no rash and no lesions Neurologic: + gait abnormality, + generalized weakness and + memory loss; no localized weakness, no tingling, no numbness, no tremor(s), no abnormal movements, no headache(s), no abnormal speech and no confusion Psychiatric: no depression, no irritability, no anxiety, no difficulty c oncentrating, no confusion and no hallucinations Endocrine: + fatigue; no flushing Hematologic / Lymphatic: no easy bleeding and no easy bruising Allergy / Immunological: no urticaria and no problem reported Physical Exam Physical Exam: The patient is right-handed. The patient is awake, alert, and attentive. Speech is normal without any aphasia or dysarthria. he can name objects, repeat phrases, and has normal spontaneous speech. Mentation and thought processes are reasonable, with orientation to person, place and time, and mildly impaired fund of knowledge. Attention and concentration are normal. Mood and affect are normal and appropriate. General appearance and grooming are normal. Short and long-term memory are mildly impaired The discs are sharp with positive venous pulsations bilaterally. There are no exudates, hemorrhages, or blood vessel changes seen. Pupils are 3 mm bilaterally and reactive to light. Extraocular eye muscles are intact without nystagmus. Visual acuity and visual cintron seem normal grossly to confrontation. There are no deficits to sensation in the face in all 3 distributions of the fifth cranial nerve bilaterally. Corneal reflexes are positive bilaterally. Facial strength and symmetry was normal bilaterally. Hearing seems normal to whisper and finger rub bilaterally. Palate moves well without asymmetry. There is normal sternocleidomastoid and trapezius (shoulder shrug) strength bi laterally. Tongue is midline with good strength bilaterally. Neck has a full range of motion without discomfort. There are no cervical bruits bilaterally. There are no cranial or ocular bruits. Heart is without murmur. There is a regular rhythm and rate. Cervical, thoracic, and lumbar spine are nontender to palpation. Gait is narrow based, and cautious. He has slow turns. Balance is reasonable eyes open. With outstretched arms there is no drift. There are no resting, postural, or action tremors. There is no ataxia with finger to nose testing. There is good facility in the hands. No other abnormal involuntary movements are noted. 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 The right deltoid is 4/5 due to rotator cuff issues and the left is 5/5. Motor strength is 5/5 diffusely in the legs bilaterally including hip flexors, quadriceps, hamstrings, gastrocnemius, tibialis anterior, tibialis posterior, and Peroneii muscles. Toe extensors are normal and there is good bulk in the extensor digitorum brevis muscles bilaterally. The limbs have good tone without rigidity or spasticity. There is no atrophy noted in the muscles. Muscle bulk is normal, there is no tenderness to palpation, no myotonia to percussion, and no fasciculations seen. Sensory examination is intact to touch and pin throughout all 4 limbs diffusely. Reflexes are 0/4 in the biceps, triceps, brachioradialis, quadriceps, and Achilles tendons bilaterally. There is no clonus bilaterally. Toes are downgoing with plantar stimulation bilaterally. Peripheral pulses are present and of normal quality distally in all 4 limbs. There is no peripheral edema noted in the limbs. Results & Data Vital Signs (Past 12 Hours) Vital Signs Temp Pulse Pulse Resp BP BP Pulse Ox 07/21/19 07:09 36.5 C 56 L 18 168/64 H 95 07/21/19 04:14 37 C 76 18 167/89 H 96 07/21/19 01:27 68 16 97 07/21/19 00:24 184/69 H 07/20/19 23:27 36.5 C 56 L 20 203/59 H 96 07/20/19 23:24 60 18 98 07/20/19 21:53 36.9 C 75 175/72 H 94 07/20/19 21:44 36.6 C 84 18 146/85 H 97 07/20/19 20:33 66 19 171/72 H 97 Diagnostic Findings MRI OF THE BRAIN WITHOUT CONTRAST CLINICAL HISTORY: possible stroke SLURRED SPEECH. COMPARISON STUDY: CT scan dated 07/20/2019 FINDINGS: Sagittal T1, axial diffusion, proton density and T2 weighted axial, coronal FLAIR, and axial T1-weighted images were acquired. No intra or extra-axial mass lesions are visualized Axial diffusion-weighted images reveal no evidence of acute or subacute infarction. There is mild ventricular prominence, finding which is felt to be secondary to volume loss Proton density T2-weighted and FLAIR images reveal scattered foci of increased T2 signal within the white matter, likely on a small vessel basis. There are no abnormal flow voids. The study is compromised due to patient motion artifact. IMPRESSION: 1. Motion degraded study 2. No acute intracranial findings 2. No evidence of intracranial mass in this noncontrast study 3. No evidence of acute or subacute infarction ACT 112: Negative or not required by law. Electronically signed by: Naresh PG Care Time/CCT Total # of Minutes Spent Total Time Spent with Patient: Total time spent is greater than 50% in coordination of care (as documented) at patient's floor/unit and/or counseling patient: Coding Level of Care Code 68039 OBS Care - Level 3 Diagnoses TIA (transient ischemic attack) G45.9 Dysarthria R47.1 Hypertension I10 Basilar artery stenosis I65.1 Carotid stenosis, left I65.22 Vertebral artery stenosis/occlusion I65.09 Laterality: unspecified laterality Factor V Leiden mutation D68.51 Diabetic peripheral neuropathy E11.42 Hyperlipemia E78.5 Time Spent (min) [address] [place] [address] to the [address] (1) Vertebral artery stenosis/occlusion Laterality: unspecified laterality Qualified Code(s): I65.09 - Occlusion and stenosis of unspecified vertebral artery
--- NOTE | 2019-07-21 08:27 | Pharmacy Report ---
Pharmacy Glycemic Short Note 2 - Date of Service July 21, 2019 - Glycemic Short BSG Results (Last 24 hours): 07/20/19 07/20/19 07/20/19 17:23 17:23 22:25 Glucose 269 H POC Glucose 258 H 329 H* 07/21/19 07/21/19 07/21/19 04:16 06:44 07:20 Glucose 181 H POC Glucose 162 H 204 H OUTPATIENT ANTIDIABETIC REGIMEN: * Lantus 20 units Q PM * Humalog up to 40 units daily * A1c = 8.1% 07/20/19 ASSESSMENT: * Type 1 v 2 ? diabetic admitted for possible CVA yesterday * Fasting AM BSG 204 this AM, however it appears the patient was not given his evening basal insulin last night * Will give 1/2 his usual basal insulin dose this AM and increase his Novolog doses to compensate today. Will then resume his usual basal dose this PM. PLAN FOR INPATIENT GLYCEMIC CONTROL: * Basal insulin * Lantus 10 units SQ x1 this AM * then resume 20 units Q HS this evening * Bolus insulin * NovoLog per scale ACHS or Q6hrs while NPO * Goal Range: Low 110 mg/dL - High 140 mg/dL * Correction Factor: 20 mg/dL/unit * Nutritional / Prandial insulin per carb ratio of 1 unit per 8 grams CHO consumed PLAN FOR DISCHARGE: * to be determined
[2019-07-21] MEDS ORDERED: INSULIN GLARGINE SOLOSTAR 100 UNITS/ML 3 ML PEN SC ONE (08:30)
[2019-07-21] MEDS ORDERED: NON-FORMULARY MEDICATION (Lutein 20 MG) PO SCH (09:00)
--- NOTE | 2019-07-21 09:49 | XCELERA ---
[id number] \\[id number]
[2019-07-21] MEDS: ATORVASTATIN 40 MG TAB PO SCH (10:05)
[2019-07-21] MEDS: CLOPIDOGREL BISULFATE 75 MG TAB PO SCH (10:05)
[2019-07-21] MEDS: LOSARTAN POTASSIUM 50 MG TAB PO SCH (10:05)
[2019-07-21] MEDS: MULTIVITAMIN TAB PO SCH (10:06)
[2019-07-21] MEDS: ASPIRIN 81 MG ECTAB PO SCH (10:06)
[2019-07-21] MEDS: FOLIC ACID 1 MG TAB PO SCH (10:06)
[2019-07-21] MEDS: MIRABEGRON ER 25 MG TAB PO SCH (10:06)
[2019-07-21] MEDS: PYRIDOXINE HCL 50 MG TAB PO SCH (10:06)
[2019-07-21] MEDS: THIAMINE HCL 100 MG TAB PO SCH (10:06)
[2019-07-21] MEDS: FINASTERIDE 5 MG TAB PO SCH (10:07)
[2019-07-21] MEDS: DOXAZosin MESYLATE 4 MG TAB PO SCH (10:07)
[2019-07-21] MEDS: MAGNESIUM OXIDE 400 MG TAB PO SCH (10:07)
[2019-07-21] MEDS: METOPROLOL TARTRATE 50 MG TAB PO SCH ×2 (10:08→19:42)
[2019-07-21] MEDS: INSULIN ASPART 100 UNITS/ML 3 ML PEN SC SCH ×4 (10:09→20:58)
[2019-07-21] MEDS ORDERED: AMLODIPINE BESYLATE 5 MG TAB PO ONE (14:45)
[2019-07-21] MEDS ORDERED: WARFARIN SOD 2.5 MG TAB PO SCH (16:00)
[2019-07-21] MEDS: DOCUSATE SODIUM 100 MG CAP PO SCH (19:40)
[2019-07-21] MEDS: WARFARIN SOD 2.5 MG TAB PO SCH (19:42)
--- NOTE | 2019-07-21 20:33 | Hospitalist Progress Note ---
Date of Service July 21, 2019 Assessment & Plan (1) TIA (transient ischemic attack): MRI brain w/o acute stroke. CTA head/neck w/o any stenosis that requires immediate attention. He is optimized from a medical perspective - he already takes plavix, asa, and warfarin daily. PT, OT, speech evals. Appreciate neuro consult - I did discuss his case with Dr Stein today. Will not change his antiplatelet agent or warfarin. Cont statin. LDL is well-controlled at 50. Will work on BP control prior to discharge home. 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 pharmacy was consulted for glycemic management. 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 Continue levothyroxine 25 MCG's p.o. daily. (6) Complex sleep apnea syndrome: Patient can use BiPAP from home with his home setting. (7) CAD (coronary artery disease): Continue beta kristin. Aspirin 81 mg p.o. every morning. Atorvastatin 40 mg p.o. daily. Clopidogrel 75 mg p.o. daily. (8) CVA (cerebral vascular accident): Patient had previous 5 strokes. Now with TIA. Appreciate Dr Stein's consultation. (9) Anti-cardiolipin antibody positive: Continue on warfarin daily INR (10) Alcohol abuse: Patient reports not using alcohol recently. Continue pyridoxine 100 mg p.o. daily, multivitamin 1 tablet p.o. daily, magnesium 250 mg p.o. daily, folic acid 1 mg p.o. daily, thiamine 100 mg p.o. daily. (11) Benign prostatic hyperplasia: No issues Continue finasteride 5 mg p.o. daily and doxazosin 4 mg p.o. daily. Continue silodosin 8 mg p.o. every afternoon. Continue mirabegron on 50 mg p.o. daily (12) Hypertension: labile and uncontrolled added norvasc 5mg daily cont all other home meds follow bps overnight for improvement (13) Constipation, acute: continue docusate sodium 300 mg p.o. every afternoon Admission and Anticipated Discharge Date Admission Date: July 20, 2019 Anticipated date of discharge: 07/22/19 Subjective patient feeling well no further altered MS or speech difficulties denies new motor weakness eating well ambulating telemetry wnl BPs have remained high throughout the day Review of Systems Constitutional: no fever and no chills Respiratory: no cough, no dyspnea and no dyspnea on exertion Cardiovascular: no chest pain Gastrointestinal: no abdominal pain Physical Exam Constitutional: no acute distress and no altered mental status ENMT: external ear and nose normal, oropharynx normal Respiratory: normal respiratory effort, lungs clear to auscultation Cardiovascular: Rate/Rhythm: regular rate and regular rhythm Heart Sounds: normal S1 and normal S2; no murmur Vessels: posterior tibial pulses present and dorsalis pedis pulses present; no JVD Extremities: + edema (trace b/l ) Gastrointestinal (Abdomen): normal bowel sounds, soft, nontender, no hepatosplenomegaly Neurologic: no facial droop; speech clear; strength b/l arms and legs symmetric, 5/5 Psychiatric: A+Ox3, euthymic affect Results & Data ([facility]) Vital Signs (Past 12 Hours) Vital Signs Temp Pulse Resp BP BP Pulse Ox 07/21/19 20:00 36.7 C 69 20 162/62 H 96 07/21/19 15:18 36.4 C L 63 20 169/73 H 97 07/21/19 11:32 36.6 C 69 19 185/83 H 97 Laboratory Results Laboratory Results - last 24 hr 07/20/19 07/21/19 07/21/19 17:23 04:16 06:44 WBC 4.90 RBC 4.03 L Hgb 14.2 Hct 40.6 L MCV 100.7 H MCH 35.2 H MCHC 35.0 RDW Std Deviation 45.7 RDW Coeff of Mary 12.5 Plt Count 105 L MPV 10.4 Immature Gran % (Auto) 0.4 Neut % (Auto) 56.3 Lymph % (Auto) 29.0 [place] % (Auto) 11.2 Eos % (Auto) 2.9 Baso % (Auto) 0.2 Immature Gran # (Auto) 0.02 Neut # (Auto) 2.76 Lymph # (Auto) 1.42 [place] # (Auto) 0.55 Eos # (Auto) 0.14 Baso # (Auto) 0.01 PT INR Sodium Potassium Chloride Carbon Dioxide Anion Gap BUN Creatinine Est Cr Clr Drug Dosing Est GFR ( Amer) Est GFR (Non-Af Amer) BUN/Creatinine Ratio Glucose POC Glucose 162 H Estimat Average Glucose 186 Hemoglobin A1c 8.1 H Calcium Total Bilirubin AST ALT Alkaline Phosphatase Total Protein Albumin Globulin Albumin/Globulin Ratio Triglycerides Cholesterol LDL Cholesterol, Calc VLDL Cholesterol, Calc HDL Cholesterol Cholesterol/HDL Ratio 07/21/19 07/21/19 07/21/19 06:44 06:44 07:20 WBC RBC Hgb Hct MCV MCH MCHC RDW Std Deviation RDW Coeff of Mary Plt Count MPV Immature Gran % (Auto) Neut % (Auto) Lymph % (Auto) [place] % (Auto) Eos % (Auto) Baso % (Auto) Immature Gran # (Auto) Neut # (Auto) Lymph # (Auto) [place] # (Auto) Eos # (Auto) Baso # (Auto) PT 19.8 H INR 2.0 H Sodium 137 Potassium 3.8 D Chloride 105 Carbon Dioxide 24 Anion Gap 8.0 BUN 20 H Creatinine 1.18 D Est Cr Clr Drug Dosing 56.6 Est GFR ( Amer) 68.1 Est GFR (Non-Af Amer) 58.8 BUN/Creatinine Ratio 16.9 Glucose 181 H POC Glucose 204 H Estimat Average Glucose Hemoglobin A1c Calcium 8.9 Total Bilirubin 1.1 H AST 26 ALT 43 Alkaline Phosphatase 60 Total Protein 6.2 L Albumin 3.4 Globulin 2.8 Albumin/Globulin Ratio 1.2 Triglycerides 118 Cholesterol 138 LDL Cholesterol, Calc 50 VLDL Cholesterol, Calc 24 HDL Cholesterol 64 Cholesterol/HDL Ratio 2 07/21/19 07/21/19 07/21/19 09:44 11:15 11:43 WBC RBC Hgb Hct MCV MCH MCHC RDW Std Deviation RDW Coeff of Mary Plt Count MPV Immature Gran % (Auto) Neut % (Auto) Lymph % (Auto) [place] % (Auto) Eos % (Auto) Baso % (Auto) Immature Gran # (Auto) Neut # (Auto) Lymph # (Auto) [place] # (Auto) Eos # (Auto) Baso # (Auto) PT INR Sodium Potassium Chloride Carbon Dioxide Anion Gap BUN Creatinine Est Cr Clr Drug Dosing Est GFR ( Amer) Est GFR (Non-Af Amer) BUN/Creatinine Ratio Glucose POC Glucose 255 H 356 H* 377 H* Estimat Average Glucose Hemoglobin A1c Calcium Total Bilirubin AST ALT Alkaline Phosphatase Total Protein Albumin Globulin Albumin/Globulin Ratio Triglycerides Cholesterol LDL Cholesterol, Calc VLDL Cholesterol, Calc HDL Cholesterol Cholesterol/HDL Ratio 07/21/19 07/21/19 07/22/19 15:59 20:56 02:07 WBC RBC Hgb Hct MCV MCH MCHC RDW Std Deviation RDW Coeff of Mary Plt Count MPV Immature Gran % (Auto) Neut % (Auto) Lymph % (Auto) [place] % (Auto) Eos % (Auto) Baso % (Auto) Immature Gran # (Auto) Neut # (Auto) Lymph # (Auto) [place] # (Auto) Eos # (Auto) Baso # (Auto) PT INR Sodium Potassium Chloride Carbon Dioxide Anion Gap BUN Creatinine Est Cr Clr Drug Dosing Est GFR ( Amer) Est GFR (Non-Af Amer) BUN/Creatinine Ratio Glucose POC Glucose 208 H 313 H* 132 H Estimat Average Glucose Hemoglobin A1c Calcium Total Bilirubin AST ALT Alkaline Phosphatase Total Protein Albumin Globulin Albumin/Globulin Ratio Triglycerides Cholesterol LDL Cholesterol, Calc VLDL Cholesterol, Calc HDL Cholesterol Cholesterol/HDL Ratio PG Care Time/CCT Total # of Minutes Spent Total Time Spent with Patient: Total time spent is greater than 50% in coordination of care (as documented) at patient's floor/unit and/or counseling patient: Coding Level of Care Code 16768 Subseq Obs Care Lvl 3 Diagnoses TIA (transient ischemic attack) G45.9 Dyslipidemia E78.5 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 transplanted heart: [place] heart CVA (cerebral vascular accident) I63.9 CVA mechanism: unspecified Anti-cardiolipin antibody positive R76.0 Alcohol abuse F10.10 Benign prostatic hyperplasia N40.0 Hypertension I10 Constipation, acute K59.00 (1) CAD (coronary artery disease) Associated angina: without angina Coronary Disease-Associated Artery/Lesion type: [place] artery [place] vs. transplanted heart: [place] heart Qualified Code(s): I25.10 - Atherosclerotic heart disease of [place] coronary artery without angina pectoris (2) CVA (cerebral vascular accident) CVA mechanism: unspecified Qualified Code(s): I63.9 - Cerebral infarction, unspecified
[2019-07-21] MEDS ORDERED: INSULIN GLARGINE SOLOSTAR 100 UNITS/ML 3 ML PEN SC SCH (21:00)
[2019-07-22] MEDS ORDERED: INSULIN ASPART 100 UNITS/ML 3 ML PEN SC ONE (02:00)
[2019-07-22] MEDS: LEVOTHYROXINE SODIUM 25 MCG TABLET PO SCH (06:45)
[2019-07-22 07:24] LABS: Basophils # (auto) 0.02 K/uL (0-0.2); Basophils % (auto) 0.4 %; Eosinophils # (auto) 0.16 K/uL (0-0.5); Eosinophils % (auto) 3.2 %; Hematocrit (blood only) 41.3 % (42-52); Hemoglobin 14.9 g/dL (14.0-18.0); Immature Granulocytes # (auto) 0.02 K/uL (0.00-0.02); Immature Granulocytes % (auto) 0.4 %; Lymphocytes # (auto) 1.24 K/uL (1.2-3.4); Lymphocytes % (auto) 25.1 %; Mean Corpuscular Hemoglobin 35.6 pg (25-34); Mean Corpuscular Hgb Conc 36.1 g/dL (32-36); Mean Corpuscular Volume 98.6 fL (80-100); Mean Platelet Volume 10.2 fL (7.4-10.4); Monocytes # (auto) 0.66 K/uL (0.11-0.59); Monocytes % (auto) 13.3 %; Neutrophils # (auto) 2.85 K/uL (1.4-6.5); Neutrophils % (auto) 57.6 %; Platelet Count 125 K/uL (130-400); RDW Coefficient of Variation 12.3 % (11.5-14.5); Red Blood Count 4.19 M/uL (4.7-6.1); White Blood Count 4.95 K/uL (4.8-10.8)
[2019-07-22 07:47] LABS: Prothrombin Time 19.3 Seconds (9.0-12.0)
[2019-07-22] MEDS: MULTIVITAMIN TAB PO SCH (07:52)
[2019-07-22] MEDS: CLOPIDOGREL BISULFATE 75 MG TAB PO SCH (07:53)
[2019-07-22] MEDS: THIAMINE HCL 100 MG TAB PO SCH (07:53)
[2019-07-22] MEDS: LOSARTAN POTASSIUM 50 MG TAB PO SCH (07:53)
[2019-07-22] MEDS: MIRABEGRON ER 25 MG TAB PO SCH (07:53)
[2019-07-22] MEDS: PYRIDOXINE HCL 50 MG TAB PO SCH (07:53)
[2019-07-22] MEDS: MAGNESIUM OXIDE 400 MG TAB PO SCH (07:54)
[2019-07-22] MEDS: FOLIC ACID 1 MG TAB PO SCH (07:54)
[2019-07-22] MEDS: METOPROLOL TARTRATE 50 MG TAB PO SCH (07:54)
[2019-07-22] MEDS: ASPIRIN 81 MG ECTAB PO SCH (07:54)
[2019-07-22] MEDS: ATORVASTATIN 40 MG TAB PO SCH (07:54)
[2019-07-22] MEDS: FINASTERIDE 5 MG TAB PO SCH (07:54)
[2019-07-22] MEDS: DOXAZosin MESYLATE 4 MG TAB PO SCH (07:54)
[2019-07-22] MEDS: INSULIN ASPART 100 UNITS/ML 3 ML PEN SC SCH ×2 (07:57→12:22)
[2019-07-22] MEDS ORDERED: AMLODIPINE BESYLATE 5 MG TAB PO SCH (09:00)
--- NOTE | 2019-07-22 14:21 | Pharmacy Report ---
Pharmacy Glycemic Short Note 2 - Date of Service July 22, 2019 - Glycemic Short BSG Results (Last 24 hours): 07/21/19 07/21/19 07/22/19 15:59 20:56 02:07 POC Glucose 208 H 313 H* 132 H 07/22/19 07/22/19 07:32 11:27 POC Glucose 109 H 212 H OUTPATIENT ANTIDIABETIC REGIMEN: * Lantus 20 units Q PM * Humalog up to 40 units daily * A1c = 8.1% 07/20/19 ASSESSMENT: 07/22/19 * Blood sugars guillermo throughout the day with meals yesterday, tighten CR * Fasting blood sugar 109mg/dl - no change in basal at this time, continue home dose 07/21/19 * Type 1 v 2 ? diabetic admitted for possible CVA yesterday * Fasting AM BSG 204 this AM, however it appears the patient was not given his evening basal insulin last night * Will give 1/2 his usual basal insulin dose this AM and increase his Novolog doses to compensate today. Will then resume his usual basal dose this PM. PLAN FOR INPATIENT GLYCEMIC CONTROL: * Basal insulin * Lantus 20 units SQ HS * Bolus insulin * NovoLog per scale ACHS or Q6hrs while NPO * Goal Range: Low 110 mg/dL - High 140 mg/dL * Correction Factor: 20 mg/dL/unit * TIGHTEN: Nutritional / Prandial insulin per carb ratio of 1 unit per 5 gr ams CHO consumed PLAN FOR DISCHARGE: * to be determined
[2019-07-22] MEDS ORDERED: STROKE PATIENT DISCHARGE STA (14:41)
--- NOTE | 2019-07-22 15:40 | Discharge Summary ---
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 Patient takes for hypercoagulable state warfarin. His INR is 2.2. Patient was brought today by EMS to the emergency room after his noted that around 3:30 PM patient was unable to speak clearly nor he was able to remember the proper word. Stroke alert was called in the emergency room. Patient reports no weakness in his upper or lower extremity and all other intracranial nerves being intact. Patient complains of confusion that occurred today. Prior to this he was able to recall names of all of his medication which he could not today during the clinical exam. Patient reports taking all of his medication regularly. Patient is already on Plavix 75 mg daily, aspirin 81 mg daily and atorvastatin 40 mg p.o. daily. His noted that his blood pressure was also very elevated today which is not very usual for him. Patient denies fever, chills, chest pain, shortness of breath, abdominal pain, frequency, urgency. Labs are reviewed which shows: WBC 6.72, hemoglobin 15.5, hematocrit 43.2, platelets 128, PT 20.6, INR 2.2,/2.1, sodium 136, potassium 4.5, chloride 101, BUN 24, creatinine 1.54 which is slightly above his b aseline in December 2018 1.43. GFR of 42.6, blood glucose of 258, hemoglobin A1c 8 point 4 June 23 2019, magnesium 2.4, total bilirubin 0.8, AST 42, ALT 57, troponin 0.015, TSH pending, BNP pending. CT of the head without contrast no acute intracranial findings. Principal Diagnosis TIA Discharge Exam Constitutional no acute distress and no altered mental status ENMT external ear and nose normal, oropharynx normal Respiratory normal respiratory effort, lungs clear to auscultation Cardiovascular Rate/Rhythm: regular rate and regular rhythm Heart Sounds: normal S1 and normal S2; no murmur Vessels: posterior tibial pulses present and dorsalis pedis pulses present; no JVD Extremities: + edema (trace b/l ) Gastrointestinal (Abdomen) normal bowel sounds, soft, nontender, no hepatosplenomegaly Neurologic moves all extremities (strength nearly 5/5 all extremities bilaterally ) Speech / Cognition: normal speech (fluent/clear) Psychiatric A+Ox3, euthymic affect Discharge Data Allergies Allergy/AdvReac Type Severity Reaction Status Date / Time clindamycin Allergy Intermediate Rash Verified 07/26/19 14:36 Penicillins Allergy Unknown Unknown Verified 07/26/19 14:36 Sulfa (Sulfonamide Allergy Unknown HIVES Verified 07/26/19 14:36 Antibiotics) lisinopril Allergy Unknown Verified 07/26/19 14:36 Consultations PT, OT Speech therapy neurology - Eugenio Stein MD Ordered Studies CT head - no acute process, no acute stroke. CT angio head - IMPRESSION: 1. No intracranial aneurysm, abrupt vessel cut off or intraluminal thrombus. 2. No significant change since CTA of August 12, 2018. Moderate stenosis of the petrous portion of the left internal carotid artery and the basilar artery. CT angio neck - IMPRESSION: 1. Calcific atheromatous plaque at the level the carotid bifurcations. No evidence of hemodynamically significant carotid stenosis 2. 60% left vertebral artery stenosis at the C5-6 level secondary to facet joint arthropathy MRI brain - IMPRESSION: 1. Motion degraded study 2. No acute intracranial findings 3. No evidence of intracranial mass in this noncontrast study 4. No evidence of acute or subacute infarction Echocardiogram - * EF >70% * no inter-atrial shunt * no source of thrombus * normal LV wall motion Hospital Course (1) TIA (transient ischemic attack): Presenting symptoms were felt 2nd to TIA. MRI brain w/o acute stroke. CTA head/neck w/o any stenosis that would require immediate attention. We were under the impression that the patient was already taking "triple therapy" with plavix, asa, and warfarin at time of presentation. However, on day of discharge, it was determined he had STOPPED the plavix in April 2019 after a discussion with his speech and language assistant. Thus, he had been off plavix since that time. We ultimately decided, given that he had this TIA on aspirin therapy, to STOP the aspirin and RESUME the plavix. He will continue on warfarin as previous. PT, OT, speech evals were completed; cleared for home. In addition to plavix/warfarin he will continue on statin. LDL was well-controlled at 50 on lipid profile. Blood pressures were markedly elevated at time of admission and remained so for much of his stay -- see below. (2) Hypertension: labile and uncontrolled throughout the stay. norvasc 5mg daily was added while here for improved control. he appeared to have significant orthostasis with adding the norvasc however. fortunately he did not report dizziness. 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 pharmacy was consulted for glycemic management. he will resume his normal regimen of lantus/novolog at discharge. 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 Continue levothyroxine 25 MCG p.o. daily. (7) Complex sleep apnea syndrome: Cont BiPAP (8) CAD (coronary artery disease): Continue beta kristin. Plavix resumed in [place] of aspirin (see above in TIA). Atorvastatin 40 mg p.o. daily. (9) CVA (cerebral vascular accident): Patient had previous 5 strokes. Now with TIA. (10) Anti-cardiolipin antibody positive: Continue on warfarin INR at discharge was 2 (11) Alcohol abuse: Patient reports not using alcohol recently. Continue pyridoxine 100 mg p.o. daily, multivitamin 1 tablet p.o. daily, magnesium 250 mg p.o. daily, folic acid 1 mg p.o. daily, thiamine 100 mg p.o. daily. (12) Benign prostatic hyperplasia: No issues while here Continue prevous BPH meds (13) Constipation, acute: continue docusate sodium 300 mg p.o. every afternoon Total Time Total Time Spent Total Time Spent (In Minutes): 35 Total Time Includes: Examination of the Patient, Discharge Planning, Medication Reconciliation and Communication With Other Providers Discharge Plan Discharge Items Patient Disposition: Home - Self-Care Reason For Visit: concern for stroke Discharge Diagnosis: TIA (transient ischemic attack) - NO evidence of new stroke on MRI brain Transient ischemic attack is a neurological symptom or set of symptoms that comes on and resolves, typically within 24 hours. TIA is NOT the same thing as a stroke. In a TIA the MRI brain is negative for stroke. Activity: As commented below Activity Comment: gradually increase your activities over the next 5-7 days Non-emergency contact: Primary Care Provider Call non-emergency contact if: you have any medication questions Follow-up/Referrals: Sheng Sherman MD [Primary Care Provider] - 07/26/19 12:45 pm (see Dr Sherman within 1 week ) Diet: Carb Count or DM1 and Heart Healthy Addtl Attending Provider Instructions: You presented with symptoms concerning for stroke. Your MRI brain did NOT show stroke. Thus, this was likely a TIA event (see description of TIA above in "discharge diagnoses"). You were seen by the neurologist, Dr Stein. He is recommending that we STOP your aspirin and RESUME your once daily plavix (clopidogrel). Continue on your coumadin as previous. We are hoping that the combination of plavix with coumadin will prevent future TIA/stroke events. Your blood pressures were elevated while hospitalized. You do have a drop in your blood pressure with standing thus we are advising, upon discharge, that you monitor your blood pressure at home before starting on a new medication. Recommendations - 1. STOP your aspirin. 2. RESTART your plavix 75mg once daily; please pick this up from the [facility] on your way home. 3. Continue coumadin as previous. Your INR today is 2. 4. Check your blood pressure in a seated position twice a day for the next several days. If your top number (the systolic reading) is consistently greater than 150 please FILL the amlodipine 2.5mg once daily for your blood pressure. You can take this medication at any time but most folks take it in the morning. Show these BP readings to Dr Sherman. Stroke instructions - Risk Factors for Stroke: You can reduce your chances of stroke by working with your medical provider to adopt a healthy lifestyle. Some specific ways to lower your chance of stroke are: * If you are a smoker, now is the time to stop smoking cigarettes * If you are diabetic, improve the control of your blood sugars * Avoid excessive amounts of alcohol * Control high blood pressure * Lose weight if you are overweight * Be sure to lead an active lifestyle * Eat a healthy diet low in salt, cholesterol and fat You should know about other risk factors for stroke that you are unable to control. These include: * Age 55 years or older * Male gender * Certain racial groups: , or / * Family History of Stroke, Mini stroke or Heart Attack * Sickle Cell Disease Who to Call and When: Medical Emergencies: Call 911 immediately if you experience any of the following warning signs and symptoms of Stroke: * Sudden numbness or weakness of the face, arm or leg, especially on one side of the body * Sudden confusion, trouble speaking or understanding * Sudden trouble seeing in one or both eyes * Sudden trouble walking, dizziness, loss of balance or coordination * Sudden severe headache with no cause Do not delay calling 911 if you experience any warning signs or symptoms of a stroke. Delay in seeking medical attention may affect what treatments can be given to you. Followup with Dr Sherman within 1 week Pending Studies at Discharge: No Stand-Alone Forms: Medications to Prevent Stroke, [facility], Smoking Cessation Medications and DC Order Prescriptions: New amlodipine 2.5 mg tablet 2.5 mg PO DAILY Qty: 30 RF: 2 Continued multivitamin Tablet 1 tab PO DAILY Qty: 0 RF: 0 docusate sodium 100 mg Capsule 300 mg PO QPM Qty: 0 RF: 0 magnesium 250 mg Tablet 250 mg PO DAILY Qty: 0 RF: 0 pyridoxine (vitamin B6) 100 mg Tablet 100 mg PO DAILY Qty: 0 RF: 0 doxazosin 4 mg tablet 4 mg PO DAILY Qty: 90 RF: 1 folic acid 1 mg tablet 1 mg PO DAILY Qty: 90 RF: 3 Myrbetriq 50 mg tablet extended release 24 hr 50 mg PO DAILY Qty: 90 RF: 3 clopidogrel 75 mg tablet 75 mg PO DAILY Qty: 90 RF: 1 levothyroxine 25 mcg tablet 25 mcg PO DAILY Qty: 30 RF: 11 finasteride 5 mg tablet 5 mg PO DAILY Qty: 30 RF: 11 silodosin 8 mg capsule 8 mg PO QPM Qty: 30 RF: 11 lutein 20 mg capsule 20 mg PO DAILY RF: 0 metoprolol tartrate 50 mg tablet 50 mg PO BID Qty: 180 RF: 0 thiamine HCl (vitamin B1) 100 mg tablet 100 mg PO DAILY RF: 0 losartan 100 mg tablet 100 mg PO DAILY Qty: 90 RF: 3 atorvastatin 40 mg tablet 40 mg PO DAILY Qty: 90 RF: 3 nitroglycerin [Nitrostat] 0.4 mg tablet, sublingual 0.4 mg sublingual UD PRN (Reason: Chest Pain) Qty: 25 RF: 3 fluticasone propionate 50 mcg/actuation spray,suspension 2 sprays INTNAS DAILY PRN (Reason: Nasal Congestion) RF: 0 (DME) Accu-Chek Cherelle Plus test strp strip See Dose Instructions .ROUTE .MEDSUPPLY Qty: 10 RF: 0 insulin lispro [Humalog U-100 Insulin] 100 unit/mL solution See Rx Instructions SQ .COMPLEX RF: 0 (DME) insulin syringe-needle U-100 [BD Insulin Syringe Ultra-Fine] 0.3 mL 31 gauge x 5/16" syringe See Dose Instructions .ROUTE .MEDSUPPLY Qty: 10 RF: 0 (DME) lancets [Accu-Chek Fastclix Lancet Drum] misc See Dose Instructions .ROUTE .MEDSUPPLY Qty: 50 RF: 0 Lantus U-100 Insulin 100 unit/mL solution 20 units SQ QPM RF: 0 Changed warfarin [Coumadin] 2.5 mg Tablet 2.5 mg PO DAILY Qty: 0 RF: 0 Discontinued aspirin [Ecotrin Low Strength] 81 mg Tablet,Delayed Release (Dr/Ec) 81 mg PO QAM Qty: 30 RF: 0 Discharge Orders: Discharge Order (Routine); Ordered 07/22/19 Ordered By: Sylvain Cho Admission Data Admit Date/Time: 07/20/19 20:03 Attending Provider: Sylvain Cho Admit Provider: Jonah Pinto Primary Care Provider: Sheng Sherman Other Providers: Jonah Pinto ; Tico Stein III Other Interventions: Discharge Summary Assessment (RN) Last Done: 07/22/19 15:09 DC Date/Time DO NOT enter until pt leaves facility: 07/22/19 16:11 Coding Level of Care Code 56212 OBS Care - Discharge Diagnoses TIA (transient ischemic attack) G45.9 Hypertension I10 Dyslipidemia E78.5 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 transplanted heart: [place] heart CVA (cerebral vascular accident) I63.9 CVA mechanism: unspecified Anti-cardiolipin antibody positive R76.0 Alcohol abuse F10.10 Benign prostatic hyperplasia N40.0 Constipation, acute K59.00
--- NOTE | 2019-07-22 15:44 | Pharmacy Report ---
Pharmacist Stroke Counseling - Date of Service July 22, 2019 - Scope: Pharmacy has been consulted to provide medication discharge counseling for this patient admitted with transient ischemic attack as per the Pharmacist Discharge Counseling for Stroke Patients Protocol. - Medications on Discharge: Home Medications Medication Instructions Recorded Confirmed multivitamin 1 tab PO DAILY #0 11/28/08 07/20/19 docusate sodium 300 mg PO QPM #0 cap 01/19/17 07/20/19 magnesium 250 mg PO DAILY #0 01/19/17 07/20/19 pyridoxine (vitamin B6) 100 mg PO DAILY #0 tab 09/22/17 07/20/19 fluticasone propionate 50 2 sprays INTNAS DAILY PRN 01/10/19 07/20/19 mcg/actuation nasal spray,suspension lutein 20 mg capsule 20 mg PO DAILY cap 01/10/19 07/20/19 metoprolol tartrate 50 mg tablet 50 mg PO BID #180 tab 01/10/19 07/20/19 thiamine HCl (vitamin B1) 100 mg 100 mg PO DAILY tab 01/10/19 07/20/19 tablet blood sugar diagnostic #10 ea 01/30/19 07/06/19 insulin lispro 100 unit/mL See Rx Instructions SQ .COMPLEX ml 01/30/19 07/20/19 subcutaneous solution insulin syringe-needle U-100 0.3 #10 ea 01/30/19 07/06/19 mL 31 gauge x 5/16" lancets #50 ea 01/30/19 07/06/19 Lantus U-100 Insulin 20 units SQ QPM 07/20/19 07/20/19 New Rx's Medication Instructions Recorded doxazosin 4 mg tablet 4 mg PO DAILY #90 tab 01/13/19 folic acid 1 mg tablet 1 mg PO DAILY #90 tab 02/07/19 finasteride 5 mg tablet 5 mg PO DAILY #30 tab 03/07/19 silodosin 8 mg capsule 8 mg PO QPM #30 cap 03/07/19 atorvastatin 40 mg tablet 40 mg PO DAILY #90 tab 03/31/19 losartan 100 mg tablet 100 mg PO DAILY #90 tab 03/31/19 nitroglycerin 0.4 mg sublingual 0.4 mg SUBLINGUAL UD PRN #25 tab 03/31/19 tablet mirabegron 50 mg tablet,extended 50 mg PO DAILY #90 tab 04/11/19 release 24 hr clopidogrel 75 mg tablet 75 mg PO DAILY #90 tab 04/26/19 levothyroxine 25 mcg tablet 25 mcg PO DAILY #30 tab 05/03/19 amlodipine 2.5 mg PO DAILY #30 tab 07/22/19 warfarin [Coumadin] 2.5 mg PO DAILY #0 tab 07/22/19 - Action: The above medications, specifically ones for stroke treatment/prophylaxis, have been reviewed in detail with the patient and/or patient patient portal representative(s) prior to discharge. This includes indication, common adverse reactions, drug interactions, and medication administration. Medication counseling has been employed using the teach-back method to ensure understanding. - Outcome: The patient and/or patient patient portal representative(s) have demonstrated understanding of the medications. Please note, they are aware that the pharmacist will call them within 72 hours post-discharge to confirm that the appropriate medications are being taken and answer any further medication related questions the patient might have at that time. Contact information Individual to be contacted: Self Relationship to patient (if applicable): Phone number: [phone] Best time to call: morning; Wednesday or Wednesday Additional comments: Met with patient and his 07/22/19 prior to discharge. Reviewed medication changes- specifically those to prevent stroke. Discussed how/when to take medications, what to do if a dose is missed, common drug interactions, possible side effects, and things to watch out for. Reviewed hospitalist's recommendations/discharge plan. 1. STOP your aspirin. 2. 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 Dose already given today but he will need a dose for tomorrow morning. 3. Continue coumadin as previously ordered. Your INR today is 2. 4. Wait to fill the new Rx for amlodipine. Hospitalist wants him to check your blood pressure in a seated position twice a day for the next several days. If your top number (the systolic reading) is consistently greater than 150 please FILL the amlodipine 2.5mg once daily for your blood pressure. You can take this medication at any time but most folks take it in the morning. Show these BP readings to Dr Sherman. Thank you for allowing pharmacy to be involved in the care of this patient. Please call [phone] or [phone] with any additional questions
--- NOTE | 2019-07-24 05:43 | Electrocardiogram Report ---
Test Reason : Blood Pressure : / mmHG Vent. Rate : 073 BPM Atrial Rate : 073 BPM P-R Int : 198 ms QRS Dur : 098 ms QT Int : 424 ms P-R-T Axes : 055 006 081 degrees QTc Int : 467 ms Poor data quality, interpretation may be adversely affected Normal sinus rhythm Nonspecific T wave abnormality Abnormal ECG When compared with ECG of 12-AUG-2018 15:14, No significant change Confirmed by David Rodriguez ([id number]) on 07/21/2019 4:32:20 PM Referred By: REFERRED SELF Confirmed By:David Rodriguez
--- NOTE | 2019-07-25 10:03 | Pharmacy Report ---
Pharmacist Post D/C Phone Note - Phone Note: Date of phone call: July 25, 2019. Individual with whom pharmacist spoke to: RADHA NINA The following questions were reviewed during the phone call with responses listed below each: Can you tell me the medications that you are currently taking as well as when and how you take each medication? - I asked open-ended questions with regards to his current medication regimen. Patient confirmed that he stopped his aspirin, resumed his Plavix, continued his atorvastatin, and confirmed current warfarin dose of 2.5 mg po daily When have you missed any doses of your medications? - None What side effects are you having from your medications, specifically, the new medications you were started on? - None What questions do you have about your medications? - None What problems are you having obtaining your medications? - None - He did not pickle maker the clopidogrel yet because he still had some left at home - He did not pickle maker the amlodipine yet, which is appropriate per his discharge instructions because he also confirmed he has been taking his BP twice a day in a seated position and his BP's have been "normal". I asked him what "normal" is and while he was unable to provide a specific number, he notes his BP machine has a green light that comes on if his BP is good. When is your next appointment with your primary care doctor? - Follow-up scheduled for tomorrow with his Coumadin clinic As per the Pharmacist Discharge Counseling for Stroke Patients Protocol, this phone call has been completed within 72 hours of discharge. Thank you for allowing us to be involved in the care of this patient.
== END 2019-07-22 16:11 | disposition home or self-care (01) ==
LOC: 2S 17:07 → ED 17:07 → SUATTDRO 20:03 → 2S 20:50

== ENCOUNTER 2021-07-13 08:43 | Inpatient (IN) ==
--- NOTE | 2021-07-13 08:55 | Emergency Department Note ---
Impression & Plan Acute alteration in mental status, Hypertension, Fever, Acute hyperglycemia, Abnormal EKG ED Provider Note NAME: RADHA NINA AGE: 80 SEX: M : 1940 ARRIVES VIA: Ambulance INFORMANT: Patient, EMS ED PROVIDER(S): Denys Currie DO CHIEF COMPLAINT: Altered mental status HPI: The patient is an 80-year-old male who has a history of diabetes as well as stroke who presented to the emergency department for an evaluation of altered mental status. The patient was found of a fever by prehospital personnel. The patient had an acute change in his mental status over the last 24 hours although his daughter stated to EMS that he has been declining over the last week. He has a history of urinary infections. He also has a history of diabetes. The patient has been compliant with his outpatient medications according to [facility]. There is no reported falls. The patient himself offers no complaints. He denies having any pain. He denies having any chest pain or abdominal pain. He said no diarrhea. He said no exposure to COVID-19 as far as he knows. ROS: See above HPI for pertinent positives & negatives. A total of 10 systems reviewed and were otherwise negative. PAST MEDICAL HISTORY: See Below PAST SURGICAL HISTORY: See Below FAMILY HISTORY: See Below SOCIAL HISTORY: See Below HOME MEDICATIONS: See Below ALLERGIES: See Below VITALS: See Below PHYSICAL EXAMINATION: GENERAL: The patient is awake and looking around the room. He is slow to answer questions. EYES: The conjunctivae are clear. The pupils are round and reactive. EARS, NOSE, MOUTH AND THROAT: The nose is without any evidence of any deformity. Mucous membranes are dry. NECK: The neck is nontender and supple. RESPIRATORY: Normal respiratory effort is noted there is no evidence of wheezing rhonchi or rales CARDIOVASCULAR: Regular rate and rhythm noted there no murmurs rubs or gallops normal S1 normal S2. GASTROINTESTINAL: The abdomen is soft and mildly distended. There is no specific tenderness guarding or rigidity. MUSCULOSKELETAL/EXTREMITIES: There is no evidence of gross deformity full range of motion is noted in the hips and shoulders. SKIN: The skin is warm and dry. There is trace pedal edema bilaterally. NEUROLOGIC: Patient is awake and oriented times person but not place or time. The patient moves all extremities symmetrically but strength is diminished. There is no facial droop appreciated. MEDICAL DECISION MAKING: The patient is a 80-year-old male who presented to the emergency department by ambulance. The patient has had worsening changes in his mental status over the course of the last few days. Symptoms became much worse over the last 24 hours. He presented to the emergency department by ambulance. His significant other did present to the emergency department with him. Apparently the patient has have worsening confusion. She is unsure if he is taking his medications appropriately. He has been complaining of a dry cough. She was unaware that he had a fever. I discussed the patient's laboratory and radiographic studies with him. He was treated with IV antihypertensive medication as well as IV fluids IV insulin and IV antibiotics. He was reevaluated multiple times. I discussed his case with the on-call [facility] hospitalist. They have agreed to evaluate the patient in the emergency department. His urinalysis was not consistent with infection however CT could be consistent with pyelonephritis. Chest x-ray did not show any definite infiltrate. CT the brain showed no definite changes even though has had ongoing symptoms for greater than 24 hours. At this time his EKG was abnormal however he complains of no chest pain and his troponin was not elevated at this time. Triage Nursing notes reviewed. Prior medical records reviewed Vital Signs: reviewed and remarkable for hypertension and fever. Differential diagnosis: Infection, hypoglycemia, electrolyte abnormalities, overdose, toxicologic, cardiac sources, intracerebral event, neurologic, trauma, as well as other pathologies. ER treatment provided: See below Diagnostics interpreted by me: ECG: EKG was obtained in the emergency department. My interpretation is sinus rhythm 93 bpm. First-degree block was noted. Poor R wave progression was noted. Left bundle branch block pattern was suggested. Lateral ST depressions with T wave inversions were noted. This was compared to a tracing from July 202019. The ischemic changes are more pronounced compared to the previous tracing. Cardiac Monitoring: An order was placed for continuous cardiac monitoring. The monitor shows a rate of 90 bpm with sinus rhythm. Laboratory studies: As stated above and show below. Imaging studies: See below Consultation(s): I discussed this case with Dr. Cho who is on-call for the [facility] hospitalist group. They will evaluate the patient in the emergency department for further management and disposition. Past Med/Surg History Medical History Acquired claw toe of both feet Acquired hallux valgus of both feet Anti-cardiolipin antibody positive Anticoagulant long-term use Ascending aorta dilation Back pain Background diabetic retinopathy associated with type 1 diabetes mellitus BPH loc w urin obs/LUTS CAD (coronary artery disease) Chronic fatigue disorder Complex sleep apnea syndrome CVA (cerebral vascular accident) Diabetes type 1, uncontrolled 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 Diabetic peripheral neuropathy associated with type 1 diabetes mellitus Dysphagia, oropharyngeal phase Factor V Leiden mutation GERD without esophagitis Glaucoma Gout History of diabetic ulcer of foot Hoarseness Hyperlipemia Hypertension Hypothyroidism Insomnia Kidney disease, chronic, stage II (mild, 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) Left inguinal hernia Leukopenia Microscopic hematuria NSTEMI (non-ST elevated myocardial infarction) Organic hypersomnia Pre-ulcerative corn or callous Primary hypercoagulable state Proteinuria Type 1 diabetes mellitus with complications Vertebral artery stenosis/occlusion Vitamin D deficiency Surgical History H/O hernia repair History of hand surgery History of hydrocelectomy History of surgical removal of ganglion cyst Hx of appendectomy S/P coronary artery stent placement Family History Mother , in her 60s of heart disease COPD (chronic obstructive pulmonary disease) Coronary heart disease Heart disease CHF Diabetes Hypertension Father , age 62 of melanoma Melanoma Heart disease Hypertension Brother Coronary heart disease Hypertension Myocardial infarction Son Diabetes Denies family history of Ovarian cancer Prostate cancer Breast cancer Lung cancer Colorectal cancer Stroke Social History Smoking Status: Never smoker Second Hand Exposure: No; Hx Alcohol Use: Yes Alcohol type: hard liquor Alcohol Intake Frequency: 4 or More x per/Week Alcohol Intake Frequency Comment: Two shots per night (or more) Hx Substance Use: No Preferred Language: Panamanian Communication Ability: Effective Visual Impairment: Limited Hearing Ability: Normal 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 Required: No Beliefs That Will Affect Care: None marital status: Current Living Situation: Spouse current occupational status: retired current occupation: Retired from [employer] age 40 to Feels Safe at Home: Yes Childhood Exposure to Second-Hand Smoke: Yes caffeine: Yes Dental Care, Regularly: Yes Physical Activity Frequency: Does not Exercise Seatbelt Use: always Sunscreen Use: Yes Assistive Devices: Glasses Allergies Allergies Allergy/AdvReac Type Severity Reaction Status Date / Time clindamycin Allergy Intermediate Rash Verified 06/30/21 13:39 Penicillins Allergy Unknown Unknown Verified 06/30/21 13:39 Sulfa (Sulfonamide Allergy Unknown HIVES Verified 06/30/21 13:39 Antibiotics) lisinopril Allergy Unknown Verified 06/30/21 13:39 Home Meds Home Medications Medication Instructions Recorded Confirmed multivitamin 1 tab PO QDL #0 11/28/08 07/13/21 docusate sodium 100 mg capsule 300 mg PO HS #0 cap 01/19/17 07/13/21 magnesium 250 mg tablet 250 mg PO QDL #0 01/19/17 07/13/21 fluticasone propionate 50 2 sprays INTNAS DAILY PRN 01/10/19 07/13/21 mcg/actuation nasal spray,suspension lutein 20 mg capsule 20 mg PO QDL cap 01/10/19 07/13/21 thiamine HCl (vitamin B1) 100 mg 100 mg PO QDL tab 01/10/19 07/13/21 tablet aspirin 81 mg tablet,delayed 81 mg PO QAM 11/10/19 07/13/21 release cholecalciferol (vitamin D3) 50 50 mcg PO DAILY 07/31/20 07/13/21 mcg (2,000 unit) capsule Previous Rx's Medication Instructions Recorded glucagon HCl 1 mg solution for 1 mg SUBCUT Q20M PRN #1 ea 06/18/20 injection (Glucagon (HCl) Emergency Kit) glucagon 3 mg/actuation nasal 3 mg INTRANASAL ONCE #2 ea 07/30/20 spray (Baqsimi) Humalog U-100 Insulin 100 unit/mL 40 unit SQ .COMPLEX #20 ml NS 09/30/20 subcutaneous solution (insulin lispro) isosorbide mononitrate 30 mg 30 mg PO QAM #30 tab 10/31/20 tablet,extended release 24 hr atorvastatin 40 mg tablet 40 mg PO HS #90 tab 12/02/20 metoprolol tartrate 50 mg tablet 50 mg PO BID #180 tab 12/02/20 warfarin 5 mg tablet 5 mg PO DAILY@1500 #90 tab 12/02/20 finasteride 5 mg tablet 5 mg PO DAILY #90 tab 12/30/20 doxazosin 4 mg tablet 4 mg PO QAM #90 tab 01/27/21 folic acid 1 mg tablet See Rx Instructions .ROUTE 04/24/21 .COMPLEX #90 tablet nitroglycerin 0.4 mg sublingual 0.4 mg SUBLINGUAL UD PRN #25 tab 05/21/21 tablet (Nitrostat) insulin glargine 100 unit/mL See Rx Instructions SQ DAILY 90 06/16/21 subcutaneous solution (Lantus Days #10 ml U-100 Insulin) losartan 25 mg tablet 50 mg PO DAILY #180 tab 06/27/21 levothyroxine 25 mcg tablet 25 mcg PO QAM #30 tab 07/03/21 Results & Data (ED) Vital Signs Vital Signs - 24 hr 07/13/21 09:16 07/13/21 09:38 07/13/21 09:52 Temperature 38.5 C H Temperature Source Axillary Pulse Rate 101 H 92 H 88 Pulse Rate from SpO2 Sensor 91 H 90 Respiratory Rate 18 14 17 Blood Pressure 228/99 H 228/99 H Blood Pressure Mean 142 142 Pulse Oximetry 94 93 95 Oxygen Delivery Method Room Air Room Air Sepsis Recent Fever Within 48 Hours Yes Sepsis New/Unexplained Change in Mental Status Yes Sepsis Action Taken by Nursing Physician Notified 07/13/21 10:00 Temperature Temperature Source Pulse Rate 90 Pulse Rate from SpO2 Sensor 89 Respiratory Rate 19 Blood Pressure 240/104 H Blood Pressure Mean 149 Pulse Oximetry 95 Oxygen Delivery Method Sepsis Recent Fever Within 48 Hours Sepsis New/Unexplained Change in Mental Status Sepsis Action Taken by Correction Medications Current Medication List: was personally reviewed by me Laboratory Data Attestation: I reviewed the patient's lab results. Result diagrams: 07/13/21 09:00 07/13/21 09:00 Lab Results 07/13/21 07/13/21 07/13/21 Range/Units 09:00 09:00 09:00 WBC 8.75 (4.8-10.8) K/uL RBC 4.58 L (4.7-6.1) M/uL Hgb 16.0 (14.0-18.0) g/dL Hct 45.9 (42-52) % MCV 100.2 H (80-100) fL MCH 34.9 H (25-34) pg MCHC 34.9 (32-36) g/dL RDW Std Deviation 45.1 (36.4-46.3) fL RDW Coeff of Mary 12.4 (11.5-14.5) % Plt Count 140 (130-400) K/uL MPV 11.0 H (7.4-10.4) fL Immature Gran % (Auto) 0.1 % Neut % (Auto) 87.3 % Lymph % (Auto) 8.5 % Overton % (Auto) 3.7 % Eos % (Auto) 0.2 % Baso % (Auto) 0.2 % Neut # (Auto) 7.64 H (1.4-6.5) K/uL Lymph # (Auto) 0.74 L (1.2-3.4) K/uL Overton # (Auto) 0.32 (0.11-0.59) K/uL Eos # (Auto) 0.02 (0-0.5) K/uL Baso # (Auto) 0.02 (0-0.2) K/uL Immature Gran # (Auto) 0.01 (0.00-0.02) K/uL PT 20.3 H (9.0-12.0) Seconds INR 2.1 H (0.9-1.1) APTT 30.9 (21.0-31.0) Seconds PTT Ratio 1.2 Sodium 133 L (136-145) mmol/L Potassium 4.9 (3.5-5.1) mmol/L Chloride 98 (98-107) mmol/L Carbon Dioxide 22 (21-32) mmol/L Anion Gap 13 H (3-11) BUN 30 H (6-23) mg/dl Creatinine 1.53 H (0.6-1.4) mg/dl Est Cr Clr Drug Dosing 44.9 ml/min Est GFR ( Amer) 49.0 ml/min Est GFR (Non-Af Amer) 42.3 ml/min BUN/Creatinine Ratio 19.6 (10-20) Glucose 420 H* (70-99(Fasting)) mg/dl POC Glucose (70-99) mg/dl Lactate (0.4-2.0) mmol/L Calcium 9.4 (8.5-10.1) mg/dl Magnesium 1.8 (1.7-2.4) mg/dl Total Bilirubin 1.2 H (0.2-1.0) mg/dl AST 30 (13-39) U/L ALT 31 (7-52) U/L Alkaline Phosphatase 68 (34-104) U/L Troponin I 0.04 (0-0.04) ng/ml Total Protein 7.1 (6.0-8.3) gm/dl Albumin 4.6 (3.4-5.0) gm/dl Globulin 2.5 (2.5-4.0) gm/dl Albumin/Globulin Ratio 1.8 (0.9-2) Procalcitonin (0-0.5) ng/ml Urine Color Urine Appearance (Clear) Urine pH (4.5-7.5) Ur Specific [place] (1.000-1.030) Urine Protein (Negative) Urine Glucose (UA) (Negative) Urine Ketones (Negative) Urine Blood (Negative) Urine Nitrite (Negative) Urine Bilirubin (Negative) Urine Urobilinogen (Negative) Ur Leukocyte Esterase (Negative) Urine WBC (Auto) (0-5) /hpf Urine RBC (Auto) (0-4) /hpf U Hyaline Cast (Auto) (0-5) /lpf U Epithel Cells (Auto) (0-5) /lpf Urine Bacteria (Auto) (Negative) SARS-CoV-2, RNA, NAAT (NEGATIVE) 07/13/21 07/13/21 07/13/21 Range/Units 09:00 09:00 09:01 WBC (4.8-10.8) K/uL RBC (4.7-6.1) M/uL Hgb (14.0-18.0) g/dL Hct (42-52) % MCV (80-100) fL MCH (25-34) pg MCHC (32-36) g/dL RDW Std Deviation (36.4-46.3) fL RDW Coeff of Mary (11.5-14.5) % Plt Count (130-400) K/uL MPV (7.4-10.4) fL Immature Gran % (Auto) % Neut % (Auto) % Lymph % (Auto) % Over[place] % (Auto) % Eos % (Auto) % Baso % (Auto) % Neut # (Auto) (1.4-6.5) K/uL Lymph # (Auto) (1.2-3.4) K/uL Overton # (Auto) (0.11-0.59) K/uL Eos # (Auto) (0-0.5) K/uL Baso # (Auto) (0-0.2) K/uL Immature Gran # (Auto) (0.00-0.02) K/uL PT (9.0-12.0) Seconds INR (0.9-1.1) APTT (21.0-31.0) Seconds PTT Ratio Sodium (136-145) mmol/L Potassium (3.5-5.1) mmol/L Chloride (98-107) mmol/L Carbon Dioxide (21-32) mmol/L Anion Gap (3-11) BUN (6-23) mg/dl Creatinine (0.6-1.4) mg/dl Est Cr Clr Drug Dosing ml/min Est GFR ( Amer) ml/min Est GFR (Non-Af Amer) ml/min BUN/Creatinine Ratio (10-20) Glucose (70-99(Fasting)) mg/dl POC Glucose 397 H* (70-99) mg/dl Lactate 2.2 H* (0.4-2.0) mmol/L Calcium (8.5-10.1) mg/dl Magnesium (1.7-2.4) mg/dl Total Bilirubin (0.2-1.0) mg/dl AST (13-39) U/L ALT (7-52) U/L Alkaline Phosphatase (34-104) U/L Troponin I (0-0.04) ng/ml Total Protein (6.0-8.3) gm/dl Albumin (3.4-5.0) gm/dl Globulin (2.5-4.0) gm/dl Albumin/Globulin Ratio (0.9-2) Procalcitonin < 0.05 (0-0.5) ng/ml Urine Color Urine Appearance (Clear) Urine pH (4.5-7.5) Ur Specific [place] (1.000-1.030) Urine Protein (Negative) Urine Glucose (UA) (Negative) Urine Ketones (Negative) Urine Blood (Negative) Urine Nitrite (Negative) Urine Bilirubin (Negative) Urine Urobilinogen (Negative) Ur Leukocyte Esterase (Negative) Urine WBC (Auto) (0-5) /hpf Urine RBC (Auto) (0-4) /hpf U Hyaline Cast (Auto) (0-5) /lpf U Epithel Cells (Auto) (0-5) /lpf Urine Bacteria (Auto) (Negative) SARS-CoV-2, RNA, NAAT (NEGATIVE) 07/13/21 07/13/21 Range/Units 09:05 09:09 WBC (4.8-10.8) K/uL RBC (4.7-6.1) M/uL Hgb (14.0-18.0) g/dL Hct (42-52) % MCV (80-100) fL MCH (25-34) pg MCHC (32-36) g/dL RDW Std Deviation (36.4-46.3) fL RDW Coeff of Mary (11.5-14.5) % Plt Count (130-400) K/uL MPV (7.4-10.4) fL Immature Gran % (Auto) % Neut % (Auto) % Lymph % (Auto) % [place] % (Auto) % Eos % (Auto) % Baso % (Auto) % Neut # (Auto) (1.4-6.5) K/uL Lymph # (Auto) (1.2-3.4) K/uL [place] # (Auto) (0.11-0.59) K/uL Eos # (Auto) (0-0.5) K/uL Baso # (Auto) (0-0.2) K/uL Immature Gran # (Auto) (0.00-0.02) K/uL PT (9.0-12.0) Seconds INR (0.9-1.1) APTT (21.0-31.0) Seconds PTT Ratio Sodium (136-145) mmol/L Potassium (3.5-5.1) mmol/L Chloride (98-107) mmol/L Carbon Dioxide (21-32) mmol/L Anion Gap (3-11) BUN (6-23) mg/dl Creatinine (0.6-1.4) mg/dl Est Cr Clr Drug Dosing ml/min Est GFR ( Amer) ml/min Est GFR (Non-Af Amer) ml/min BUN/Creatinine Ratio (10-20) Glucose (70-99(Fasting)) mg/dl POC Glucose (70-99) mg/dl Lactate (0.4-2.0) mmol/L Calcium (8.5-10.1) mg/dl Magnesium (1.7-2.4) mg/dl Total Bilirubin (0.2-1.0) mg/dl AST (13-39) U/L ALT (7-52) U/L Alkaline Phosphatase (34-104) U/L Troponin I (0-0.04) ng/ml Total Protein (6.0-8.3) gm/dl Albumin (3.4-5.0) gm/dl Globulin (2.5-4.0) gm/dl Albumin/Globulin Ratio (0.9-2) Procalcitonin (0-0.5) ng/ml Urine Color Yellow Urine Appearance Clear (Clear) Urine pH 5.0 (4.5-7.5) Ur Specific [place] 1.023 (1.000-1.030) Urine Protein Negative (Negative) Urine Glucose (UA) 3+ H (Negative) Urine Ketones 1+ H (Negative) Urine Blood 1+ H (Negative) Urine Nitrite Negative (Negative) Urine Bilirubin Negative (Negative) Urine Urobilinogen Negative (Negative) Ur Leukocyte Esterase Negative (Negative) Urine WBC (Auto) 0 (0-5) /hpf Urine RBC (Auto) 0-4 (0-4) /hpf U Hyaline Cast (Auto) 0 (0-5) /lpf U Epithel Cells (Auto) 0-5 (0-5) /lpf Urine Bacteria (Auto) Negative (Negative) SARS-CoV-2, RNA, NAAT NEGATIVE (NEGATIVE) Administered Medications Ceftriaxone Sodium (Rocephin) 1,000 mg in 50 mls @ 100 mls/hr IV NOW STA Stop: 07/13/21 10:30 Last Admin: 07/13/21 10:07 Dose: 100 mls/hr Documented by: [id number] Discontinued Medications Insulin Human Regular (Novolin-R Insulin Per Unit Charge) 6 units IV NOW STA Stop: 07/13/21 10:06 Last Admin: 07/13/21 10:08 Dose: 6 units Documented by: [id number] Cosigned by: [id number] Labetalol HCl (Labetalol Hcl Iv 5 Mg/Ml 20ml) 10 mg IV NOW STA Stop: 07/13/21 10:02 Last Admin: 07/13/21 10:07 Dose: 10 mg Documented by: [id number] Cosigned by: [id number] Imaging Data Radiologist's Impression: Abdomen/Pelvis CT 07/13/21 08:51 CT abd pelvis wo con CLINICAL HISTORY: UTI . Abdominal pain COMPARISON STUDY: No previous studies for comparison. CT DOSE: TECHNIQUE: Standard CT of the Abdomen and Pelvis was performed without IV contrast. The patient did not receive oral contrast. A dose lowering technique was utilized adhering to the principles of ALARA. FINDINGS: Lung base: The lung bases are clear. There is minimal dependent atelectasis at the lung bases. The heart is enlarged with extensive coronary artery calcification. Abdominal cavity: There is no evidence for abdominal mass, adenopathy or a scites. Liver: The liver is homogeneous in attenuation on these limited noncontrast images..Sharply defined hepatic cyst is present. Spleen: The spleen is homogeneous in attenuation on these limited noncontrast images. Pancreas: The pancreas is homogeneous in attenuation on these limited noncontrast images. Gall Bladder: The gallbladder is well distended with no evidence for cholelithiasis, wall thickening or pericholecystic edema.. Adrenal glands: The adrenal glands are normal in size and attenuation on these limited noncontrast images. Kidneys: The kidneys are homogeneous in attenuation on these limited noncontrast images. There is no evidence for gross renal mass, calculus or hydronephrosis bilaterally. There is bilateral perinephric stranding present. However, the presence of acute pyelonephritis cannot be evaluated due to lack of intravenous contrast. Bowel: There is a small to moderate size hiatal hernia. The bowel loops are normally placed within the abdomen and pelvis without evidence for dilatation or obstruction. There is no evidence for mass lesion. There is mild fecal stasis without impaction. There are no inflammatory changes present. There is no evidence for free air. The appendix is not visualized. Bladder: There is no evidence for focal bladder wall thickening, calculus or diverticulum. There is diffuse thickening of the bladder wall characteristic of chronic bladder outlet obstruction. : There is no evidence for pelvic mass or adenopathy. The prostate is moderately enlarged. Vasculature: There is no evidence for focal aneurysmal dilatation of the abdominal aorta. Extensive atherosclerotic calcification is present. Osseous structures: There is no acute osseous pathology. Prominent degenerative changes are seen throughout the lumbar spine and within both hips. IMPRESSION: 1. Mild bilateral perinephric stranding with no definite evidence for pyelonephritis on this limited noncontrast study. 2. Otherwise, no acute intra-abdominal or pelvic abnormality on these limited noncontrast images. 3. Mild fecal stasis without impaction or obstruction. 4. Small to moderate size hiatal hernia. 5. Additional nonacute findings are delineated above. ACT 112: Negative or not required by law. Electronically signed by: Pedro Thayer M.D. 07/13/2021 9:41 AM Chest X-Ray 07/13/21 08:51 XR chest 1V portable CLINICAL HISTORY: SEPSIS. Evaluate cardiopulmonary status COMPARISON STUDY: 07/18/2018 TECHNIQUE: 1 view of the chest FINDINGS: Single frontal view of the chest demonstrates the cardiomediastinal silhouette to be within normal limits. There is a decreased inspiratory effort with elevation of the hemidiaphragms and crowding of the bronchovascular markings at the lung bases and centrally. There is minimal right basilar atelectasis. The lungs are clear of alveolar opacities. There is no evidence for pleural effusion. There is no evidence for vascular congestion. There is no acute osseous pathology. IMPRESSION: There is a decreased inspiratory effort with minimal bibasilar at electasis. Otherwise no acute chest disease. ACT 112: Negative or not required by law. Electronically signed by: Pedro Thayer M.D. 07/13/2021 9:[address] 07/13/21 08:51 CT head/brain wo con CLINICAL HISTORY: AMS COMPARISON STUDY: 07/20/2019 CT DOSE: 1988.41 mGy.cm TECHNIQUE: Standard CT of the Brain was performed without IV contrast. A dose lowering technique was utilized adhering to the principles of ALARA. FINDINGS: Extraaxial space: There is no evidence for subdural hematoma. There are no extra-axial fluid collections. Ventricles and cisterns: The ventricles are mildly dilated bilaterally. There is no evidence for midline shift or mass effect. Parenchyma: There is no subarachnoid or intraparenchymal hemorrhage. There is no evidence for an acute infarct or cerebral edema. There is mild cerebral cortical atrophy and decreased attenuation in the periventricular white matter representing remote small vessel disease. There are no gross mass lesions. Osseous structures: There is no evidence for an acute fracture. The visualized paranasal sinuses are clear. The mastoid air cells are clear bilaterally. Soft tissues: There is no evidence for focal soft tissue swelling. IMPRESSION: No acute intracerebral pathology. ACT 112: Negative or not required by law. Electronically signed by: Pedro Thayer M.D. 07/13/2021 9:45 AM Discharge Plan Visit Data Chief Complaint: Illness Stated Complaint: HYPERGLYCEMIA, FEVER ED Provider: Denys Currie Discharge Problem: Acute alteration in mental status, Hypertension, Fever, Acute hyperglycemia, Abnormal EKG Patient Disposition: Being Evaluated by Hospitalist Forms Stand Alone Forms: My [facility] Prescriptions Prescriptions: No Action multivitamin Tablet 1 tab PO QDL Qty: 0 RF: 0 docusate sodium 100 mg Capsule 300 mg PO HS Qty: 0 RF: 0 magnesium 250 mg Tablet 250 mg PO QDL Qty: 0 RF: 0 Glucagon (HCl) Emergency Kit 1 mg recon soln 1 mg subcut Q20M PRN (Reason: hypoglycemia) Qty: 1 RF: 1 Baqsimi 3 mg/actuation spray,non-aerosol 3 mg intranasal ONCE Qty: 2 RF: 5 insulin lispro [Humalog U-100 Insulin] 100 unit/mL solution 40 unit SQ .COMPLEX Qty: 20 RF: 11 isosorbide mononitrate 30 mg tablet extended release 24 hr 30 mg PO QAM Qty: 30 RF: 11 doxazosin 4 mg tablet 4 mg PO QAM Qty: 90 RF: 3 folic acid 1 mg tablet See Rx Instructions .ROUTE .COMPLEX Qty: 90 RF: 3 nitroglycerin [Nitrostat] 0.4 mg tablet, sublingual 0.4 mg sublingual UD PRN (Reason: Chest Pain) Qty: 25 RF: 3 Lantus U-100 Insulin 100 unit/mL solution See Rx Instructions SQ DAILY 90 Days Qty: 10 RF: 5 losartan 25 mg tablet 50 mg PO DAILY Qty: 180 RF: 3 levothyroxine 25 mcg tablet 25 mcg PO QAM Qty: 30 RF: 5 aspirin 81 mg tablet,delayed release (DR/EC) 81 mg PO QAM RF: 0 cholecalciferol (vitamin D3) 50 mcg (2,000 unit) capsule 50 mcg PO DAILY RF: 0 lutein 20 mg capsule 20 mg PO QDL RF: 0 thiamine HCl (vitamin B1) 100 mg tablet 100 mg PO QDL RF: 0 fluticasone propionate 50 mcg/actuation spray,suspension 2 sprays INTNAS DAILY PRN (Reason: Nasal Congestion) RF: 0 finasteride 5 mg tablet 5 mg PO DAILY Qty: 90 RF: 3 metoprolol tartrate 50 mg tablet 50 mg PO BID Qty: 180 RF: 3 warfarin 5 mg tablet 5 mg PO DAILY@1500 Qty: 90 RF: 3 atorvastatin 40 mg tablet 40 mg PO HS Qty: 90 RF: 3 Referrals Referrals: Radha Sherman MD [Primary Care Provider] -
[2021-07-13 09:17] LABS: Basophils # (auto) 0.02 K/uL (0-0.2); Basophils % (auto) 0.2 %; Eosinophils # (auto) 0.02 K/uL (0-0.5); Eosinophils % (auto) 0.2 %; Hematocrit (blood only) 45.9 % (42-52); Immature Granulocytes # (auto) 0.01 K/uL (0.00-0.02); Immature Granulocytes % (auto) 0.1 %; Lymphocytes # (auto) 0.74 K/uL (1.2-3.4); Lymphocytes % (auto) 8.5 %; Mean Corpuscular Hemoglobin 34.9 pg (25-34); Mean Corpuscular Hgb Conc 34.9 g/dL (32-36); Mean Corpuscular Volume 100.2 fL (80-100); Monocytes # (auto) 0.32 K/uL (0.11-0.59); Monocytes % (auto) 3.7 %; Neutrophils # (auto) 7.64 K/uL (1.4-6.5); Neutrophils % (auto) 87.3 %; Platelet Count 140 K/uL (130-400); RDW Coefficient of Variation 12.4 % (11.5-14.5); RDW Standard Deviation 45.1 fL (36.4-46.3); Red Blood Count 4.58 M/uL (4.7-6.1); White Blood Count 8.75 K/uL (4.8-10.8)
[2021-07-13 09:23] LABS: Appearance Urine Clear (Clear); Bacteria Urine Automated Negative (Negative); Bilirubin Urine Negative (Negative); Blood Urine 1+ (Negative); Cast Urine Automated 0 /lpf (0-5); Color Urine Yellow; Epithelial Cell Urine Auto 0-5 /lpf (0-5); Glucose Urine UA 3+ (Negative); Ketones Urine 1+ (Negative); Leukocyte Esterase Urine Negative (Negative); Nitrite Urine Negative (Negative); Protein Urine Negative (Negative); RBC Urine Automated 0-4 /hpf (0-4); Specific Gravity Urine 1.023 (1.000-1.030); Urobilinogen Urine Negative (Negative); WBC Urine Automated 0 /hpf (0-5)
[2021-07-13 09:29] LABS: INR 2.1 (0.9-1.1); Partial Thromboplastin Ratio 1.2; Partial Thromboplastin Time 30.9 Seconds (21.0-31.0); Prothrombin Time 20.3 Seconds (9.0-12.0)
--- NOTE | 2021-07-13 09:39 | Electrocardiogram Report ---
Test Reason : Blood Pressure : / mmHG Vent. Rate : 093 BPM Atrial Rate : 093 BPM P-R Int : 220 ms QRS Dur : 102 ms QT Int : 360 ms P-R-T Axes : 052 000 109 degrees QTc Int : 447 ms Poor data quality, interpretation may be adversely affected Sinus rhythm with 1st degree A-V block Possible Old Anteroseptal infarct Abnormal ECG When compared with ECG of 20-JUL-2019 17:47, Borderline Criteria for Anteroseptal infarct is now Present Inverted T waves have replaced nonspecific T wave abnormality in Lateral leads ST depression in Anterolateral leads more pronounced Confirmed by Tristan Harrell ([id number]) on 07/13/2021 9:38:50 AM Referred By: Confirmed By:Tristan Harrell
[2021-07-13 09:40] LABS: Troponin I 0.04 ng/ml (0-0.04)
--- NOTE | 2021-07-13 09:43 | CT Scan Report ---
CT abd pelvis wo con CLINICAL HISTORY: UTI . Abdominal pain COMPARISON STUDY: No previous studies for comparison. CT DOSE: TECHNIQUE: Standard CT of the Abdomen and Pelvis was performed without IV contrast. The patient did not receive oral contrast. A dose lowering technique was utilized adhering to the principles of GINNA Rush. FINDINGS: Lung base: The lung bases are clear. There is minimal dependent atelectasis at the lung bases. The h eart is enlarged with extensive coronary artery calcification. Abdominal cavity: There is no evidence for abdominal mass, adenopathy or ascites. Liver: The liver is homogeneous in attenuation on these limited noncontrast images..Sharply defined h epatic cyst is present. Spleen: The spleen is homogeneous in attenuation on these limited noncontrast images. Pancreas: The pancreas is homogeneous in attenuation on these limited noncontrast images. Gall Bladder: The gallbladder is well distended with no evidence for cholelithiasis, wall thickening or pericholecystic edema.. Adrenal glands: The adrenal glands are normal in size and attenuation on these limited noncontrast im ages. Kidneys: The kidneys are homogeneous in attenuation on these limited noncontrast images. There is no evidence for gross renal mass, calculus or hydronephrosis bilaterally. There is bilateral perinephric stranding present. However, the presence of acute pyelonephritis cannot be evaluated due to lack of intravenous contrast. Bowel: There is a small to moderate size hiatal hernia. The bowel loops are normally placed within th e abdomen and pelvis without evidence for dilatation or obstruction. There is no evidence for mass le alvino. There is mild fecal stasis without impaction. There are no inflammatory changes present. There is no evidence for free air. The appendix is not visualized. Bladder: There is no evidence for focal bladder wall thickening, calculus or diverticulum. There is d iffuse thickening of the bladder wall characteristic of chronic bladder outlet obstruction. : There is no evidence for pelvic mass or adenopathy. The prostate is moderately enlarged. Vasculature: There is no evidence for focal aneurysmal dilatation of the abdominal aorta. Extensive a therosclerotic calcification is present. Osseous structures: There is no acute osseous pathology. Prominent degenerative changes are seen thro ughout the lumbar spine and within both hips. IMPRESSION: 1. Mild bilateral perinephric stranding with no definite evidence for pyelonephritis on this limited noncontrast study. 2. Otherwise, no acute intra-abdominal or pelvic abnormality on these limited noncontrast images. 3. Mild fecal stasis without impaction or obstruction. 4. Small to moderate size hiatal hernia. 5. Additional nonacute findings are delineated above. ACT 112: Negative or not required by law. Electronically signed by: Pedro Thayer M.D. 07/13/2021 9:41 AM
--- NOTE | 2021-07-13 09:44 | XRay Report ---
XR chest 1V portable CLINICAL HISTORY: SEPSIS. Evaluate cardiopulmonary status COMPARISON STUDY: 07/18/2018 TECHNIQUE: 1 view of the chest FINDINGS: Single frontal view of the chest demonstrates the cardiomediastinal silhouette to be within normal li mits. There is a decreased inspiratory effort with elevation of the hemidiaphragms and crowding of th e bronchovascular markings at the lung bases and centrally. There is minimal right basilar atelectasi s. The lungs are clear of alveolar opacities. There is no evidence for pleural effusion. There is no evidence for vascular congestion. There is no acute osseous pathology. IMPRESSION: There is a decreased inspiratory effort with minimal bibasilar atelectasis. Otherwise no acute chest disease. ACT 112: Negative or not required by law. Electronically signed by: Pedro Thayer M.D. 07/13/2021 9:43 AM
--- NOTE | 2021-07-13 09:46 | CT Scan Report ---
CT head/brain wo con CLINICAL HISTORY: AMS COMPARISON STUDY: 07/20/2019 CT DOSE: 1988.41 mGy.cm TECHNIQUE: Standard CT of the Brain was performed without IV contrast. A dose lowering technique was utilized adhering to the principles of ALARA. FINDINGS: Extraaxial space: There is no evidence for subdural hematoma. There are no extra-axial fluid collecti ons. Ventricles and cisterns: The ventricles are mildly dilated bilaterally. There is no evidence for mid line shift or mass effect. Parenchyma: There is no subarachnoid or intraparenchymal hemorrhage. There is no evidence for an acu te infarct or cerebral edema. There is mild cerebral cortical atrophy and decreased attenuation in th e periventricular white matter representing remote small vessel disease. There are no gross mass lesi ons. Osseous structures: There is no evidence for an acute fracture. The visualized paranasal sinuses are clear. The mastoid air cells are clear bilaterally. Soft tissues: There is no evidence for focal soft tissue swelling. IMPRESSION: No acute intracerebral pathology. ACT 112: Negative or not required by law. Electronically signed by: Pedro Thayer M.D. 07/13/2021 9:45 AM
[2021-07-13 09:51] LABS: Albumin Globulin Ratio 1.8 (0.9-2); Albumin Level 4.6 gm/dl (3.4-5.0); BUN Creatinine Ratio 19.6 (10-20); Bilirubin,Total 1.2 mg/dl (0.2-1.0); Calcium 9.4 mg/dl (8.5-10.1); Creatinine Clr Calc Pharmacy 44.9 ml/min; Est GFR (Non-African American) 42.3 ml/min; Globulin 2.5 gm/dl (2.5-4.0); Magnesium 1.8 mg/dl (1.7-2.4); Potassium 4.9 mmol/L (3.5-5.1); Total Protein 7.1 gm/dl (6.0-8.3)
[2021-07-13] MEDS ORDERED: cefTRIAXone SODIUM 1,000 MG/50 ML BAG IV STA (10:01)
[2021-07-13] MEDS ORDERED: LABETALOL HCL IV 5 MG/ML 20ML IV STA (10:01)
[2021-07-13] MEDS ORDERED: NovoLIN-R INSULIN PER UNIT CHARGE IV STA (10:05)
--- NOTE | 2021-07-13 11:00 | History & Physical Report ---
Date of Service July 13, 2021 Assessment & Plan (1) Acute alteration in mental status: Plan: The cause of patient's altered mental status is unclear at this time, he will be admitted to the hospital proceeding as follows: We will maintain the patient on empiric Rocephin and await culture results. A urine culture will be sent even though UA was not indicative of infection. Antibiotics with further be tailored based on culture results as infectious etiology could be the cause of patient's altered mental status -we will evaluate for influenza a potential cause of AMS Patient certainly could have suffered a stroke that is not evident on CT scan we will therefore follow neuro checks. We will check an MRI of the patient's brain. Certainly the patient's uncontrolled diabetes could be contributing. We will place the patient on an insulin drip using the DKA protocol (2) Hypertension: Plan: Patient's blood pressure is noted to be elevated. 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 (7) Hypothyroidism: Plan: We will maintain the patient on his home dose of levothyroxine 25 mcg daily We will check a TSH if not already done We will maintain the patient on his home dose of Coumadin. He is therapeutic so no further DVT preventative measures will be needed I have discussed CODE STATUS with the patient's who was present at bedside and she notes in the event of cardiopulmonary arrest CPR is an acceptable modality of care. She also notes that if his respiratory status should decrease mechanical ventilation is acceptable. He will therefore be a level 1 full code History of Present Illness Chief Complaint: Confusion Primary Care Provider: Sheng Sherman MD This is an 80-year-old male who presented to the [facility] emergency department with his secondary to confusion. Should be noted that the patient was confused to time, placealert only to person and therefore could not provide any meaningful information regarding his history of present illness. The HPI and historical information was obtained from discussion with the treating emergency room staff, review of records, and discussion with patient's who is at the bedside. This patient is a insulin-dependent diabetic. According to the patient's he takes his own insulin and takes his own medications and checks his own blood sugars. She believes that he has been taking his medications as prescribed but could not verify or ascertain this. She does note that over the past week he has seemed more confused. She did not initially seek medical attention for the patient's confusion but when she went into his bedroom this morning she noted that he was sleeping upside down in the bedroom and appeared somewhat disheveled. She said that the patient said that he felt cold and did not offer any other specific complaints. Because of his ongoing confusion she brought him to the emergency department today. When I visited with the patient in the emergency department I did attempt to question him on numerous symptoms. To the best of their knowledge she has not had any falls or head injuries. He denies any visual changes or visual loss. He denies any sore throat. Patient's does note that he does have shortness of breath as well as cough. She feels as though his cough is secondary to when he eats that he has had some difficulty swallowing and feels that this has been an ongoing problem. The patient specifically denies any chest pain. He has not had any nausea vomiting and he denies any abdominal pain. The patient denies any dysuria and his does not report that he wears adult diapers as he is incontinent. She also notes that he has had a sore on his right great toe that has been treated by podiatry. To the best of her knowledge when he was at home there have been no fevers. In addition she reports that both herself and her are fully vaccinated against COVID-19, having received her booster shots in June of this year. It is also no over the mention that the patient's reports he is an alcoholic. She could not quantify the exact amount he drinks each day but notes that he does drink frequently each day and his most recent alcoholic beverage was last evening. Today in the emergency department the patient was noted to be hypertensive with a blood pressure of 202/103. He was also noted to be febrile with a temperature 38.5. He did have labs and imaging which I independently reviewed. CBC revealed white blood cell count was 8.7. His hemoglobin, hematocrit, and platelet count were all within normal range. His INR is noted to be 2.1. Chemistry profile showed sodium was 133 with a potassium of 4.9. BUN and creatinine were 31.5. This level of creatinine was not far off the patient's baseline which usually runs around 1.3. There is no significant elevation of LFTs. Urinalysis was not indicative of infection. A Covid test was negative. Lactic acid level is elevated at 2.2. The patient's glucose was noted to be elevated at 420. 9 gap was elevated at 13. Cardiac enzymes were checked and were noted to be nonelevated. Imaging included a CT scan abdomen and pelvis that showed some mild bilateral perinephric stranding. There is no convincing evidence for pyelonephritis. Chest x-ray showed no evidence of infiltrate or pneumonia. A CT scan showed no evidence of acute stroke or fracture. An EKG was performed that showed sinus rhythm. There is concern for possible ST depression in leads V4 through V6. At the time of my interview the patient was resting comfortably in bed. He was in no distress. Thus far in the emergency department the patient has received empiric Rocephin. Allergies Allergy/AdvReac Type Severity Reaction Status Date / Time clindamycin Allergy Intermediate Rash Verified 06/30/21 13:39 Penicillins Allergy Unknown Unknown Verified 06/30/21 13:39 Sulfa (Sulfonamide Allergy Unknown HIVES Verified 06/30/21 13:39 Antibiotics) lisinopril Allergy Unknown Verified 06/30/21 13:39 Home Medications Medication Instructions Recorded Confirmed Type multivitamin 1 tab PO QDL #0 11/28/08 07/13/21 History docusate sodium 100 mg capsule 300 mg PO HS #0 cap 01/19/17 07/13/21 History magnesium 250 mg tablet 250 mg PO QDL #0 01/19/17 07/13/21 History fluticasone propionate 50 2 sprays INTNAS DAILY PRN 01/10/19 07/13/21 History mcg/actuation nasal spray,suspension lutein 20 mg capsule 20 mg PO QDL cap 01/10/19 07/13/21 History thiamine HCl (vitamin B1) 100 mg 100 mg PO QDL tab 01/10/19 07/13/21 History tablet aspirin 81 mg tablet,delayed 81 mg PO QAM 11/10/19 07/13/21 History release glucagon HCl 1 mg solution for 1 mg SUBCUT Q20M PRN #1 ea 06/18/20 07/13/21 Rx injection (Glucagon (HCl) Emergency Kit) glucagon 3 mg/actuation nasal 3 mg INTRANASAL ONCE #2 ea 07/30/20 07/13/21 Rx spray (Baqsimi) cholecalciferol (vitamin D3) 50 50 mcg PO DAILY 07/31/20 07/13/21 History mcg (2,000 unit) capsule Humalog U-100 Insulin 100 unit/mL 40 unit SQ .COMPLEX #20 ml NS 09/30/20 07/13/21 Rx subcutaneous solution (insulin lispro) isosorbide mononitrate 30 mg 30 mg PO QAM #30 tab 10/31/20 07/13/21 Rx tablet,extended release 24 hr atorvastatin 40 mg tablet 40 mg PO HS #90 tab 12/02/20 07/13/21 Rx metoprolol tartrate 50 mg tablet 50 mg PO BID #180 tab 12/02/20 07/13/21 Rx warfarin 5 mg tablet 5 mg PO DAILY@1500 #90 tab 12/02/20 07/13/21 Rx finasteride 5 mg tablet 5 mg PO DAILY #90 tab 12/30/20 07/13/21 Rx doxazosin 4 mg tablet 4 mg PO QAM #90 tab 01/27/21 07/13/21 Rx folic acid 1 mg tablet See Rx Instructions .ROUTE 04/24/21 07/13/21 Rx .COMPLEX #90 tablet nitroglycerin 0.4 mg sublingual 0.4 mg SUBLINGUAL UD PRN #25 tab 05/21/21 07/13/21 Rx tablet (Nitrostat) insulin glargine 100 unit/mL See Rx Instructions SQ DAILY 90 06/16/21 07/13/21 Rx subcutaneous solution (Lantus Days #10 ml U-100 Insulin) losartan 25 mg tablet 50 mg PO DAILY #180 tab 06/27/21 07/13/21 Rx levothyroxine 25 mcg tablet 25 mcg PO QAM #30 tab 07/03/21 07/13/21 Rx Past Med/Surg History Medical History Acquired claw toe of both feet Acquired hallux valgus of both feet Anti-cardiolipin antibody positive Anticoagulant long-term use Ascending aorta dilation Back pain Background diabetic retinopathy associated with type 1 diabetes mellitus BPH loc w urin obs/LUTS CAD (coronary artery disease) Chronic fatigue disorder Complex sleep apnea syndrome CVA (cerebral vascular accident) Diabetes type 1, uncontrolled 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 Diabetic peripheral neuropathy associated with type 1 diabetes mellitus Dysphagia, oropharyngeal phase Factor V Leiden mutation GERD without esophagitis Glaucoma Gout History of diabetic ulcer of foot Hoarseness Hyperlipemia Hypertension Hypothyroidism Insomnia Kidney disease, chronic, stage II (mild, 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) Left inguinal hernia Leukopenia Microscopic hematuria NSTEMI (non-ST elevated myocardial infarction) Organic hypersomnia Pre-ulcerative corn or callous Primary hypercoagulable state Proteinuria Type 1 diabetes mellitus with complications Vertebral artery stenosis/occlusion Vitamin D deficiency Surgical History H/O hernia repair History of hand surgery History of hydrocelectomy History of surgical removal of ganglion cyst Hx of appendectomy S/P coronary artery stent placement Family History Mother , in her 60s of heart disease COPD (chronic obstructive pulmonary disease) Coronary heart disease Heart disease CHF Diabetes Hypertension Father , age 62 of melanoma Melanoma Heart disease Hypertension Brother Coronary heart disease Hypertension Myocardial infarction Son Diabetes Denies family history of Ovarian cancer Prostate cancer Breast cancer Lung cancer Colorectal cancer Stroke Social History Smoking Status: Never smoker Second Hand Exposure: No; Hx Alcohol Use: Yes Alcohol type: hard liquor Alcohol Intake Frequency: 4 or More x per/Week Alcohol Intake Frequency Comment: Two shots per night (or more) Hx Substance Use: No Preferred Language: Albanian Communication Ability: Effective Visual Impairment: Limited Hearing Ability: Normal Card Clothier Required: No Beliefs That Will Affect Care: None marital status: Current Living Situation: Spouse current occupational status: retired current occupation: Retired from [employer] age 40 to Feels Safe at Home: Yes Childhood Exposure to Second-Hand Smoke: Yes caffeine: Yes Dental Care, Regularly: Yes Physical Activity Frequency: Does not Exercise Seatbelt Use: always Sunscreen Use: Yes Assistive Devices: Glasses Review of Systems Review of Systems: Patient was able to participate in the review of systems, however due to his confusion the validity of his information is questionable Constitutional: + fever and + chills Eyes: no blind spots and no diplopia Ear, Nose, Mouth, Throat: no ear pain Respiratory: + cough and + dyspnea Cardiovascular: no chest pain Gastrointestinal: no abdominal pain, no nausea and no vomiting Genitourinary: + urinary incontinence; no dysuria Musculoskeletal: no back pain Integumentary: no rash Neurologic: as per Subjective / HPI; no falls and no localized weakness Physical Exam Physical Exam: No signs of head trauma Constitutional: well developed and well nourished; no acute distress Eyes: PERRL, conjunctivae normal, anicteric sclerae ENMT: Ears: no hearing impairment Neck: trachea midline Respiratory: normal respiratory effort, lungs clear to auscultation Cardiovascular: Rate/Rhythm: regular rate and regular rhythm Gastrointestinal (Abdomen): Abdomen is soft, nondistended, palpation did not cause pain Musculoskeletal: No calf tenderness, there is a small 1 mm blister on patient's right great toe without any drainage. Skin: no rashes Neurologic: The patient is awake. He is able to move all 4 extremities without noted focal deficits. He is able to follow commands without any noted focal deficits. Cranial nerves II through XII appear to be intact Psychiatric: Patient is alert only to person. He is confused to time, and place Results & Data Results & Data ([facility]) Vital Signs (Past 12 Hours) Vital Signs Temp Pulse Resp BP Pulse Ox 07/13/21 10:30 102 H 19 202/103 H 96 07/13/21 10:00 90 19 240/104 H 95 07/13/21 09:52 88 17 228/99 H 95 07/13/21 09:38 92 H 14 228/99 H 93 07/13/21 09:16 38.5 C H 101 H 18 94 Supervising Physician Co-Signing Physician Notes Attending Attestation and Admission note- Pt seen/examined, chart reviewed, care plan d/w RUBEN Barnett. I agree w/ the quiroz components of his documentation. 80yo male with CAD, BPH, T1DM, alcoholism, HTN, hypothyroidism - presents from home with his with the following - * confusion x 1 week, much worse today * cough, congestion, mild dyspnea - most of which is chronic * fever today only * ?"wandering" eye -- noted by the pt's son (per the 's account) Despite the above the pt's states he has been eating fine over the last few days. No sick contacts. No recent travel. reports that their son recently came to stay with them - about 2-3 weeks ago - and still remains at their home. PMH, PSH, allergies, meds, sochx, famhx - reviewed Vitals - BP markedly elevated, febrile, O2 sats mid-90s gen - confused, could not tell me his 's name or why he was here eyes - conjunctiva and sclera injected - no discharge, however mouth - MMM, no lesions neck - no meningismus heart - 1/6 LEFTY LLSB, RR, tachy, s1 s2 lungs - fine rales R base, CTA b/l otherwise; no distress abd - soft, NT, ND, BS+, no HSM; bruises on lower abdominal wall KAILA - prostate enlarged but smooth, no nodules, not tender, not boggy ext - trace edema b/l, pulses 2+ b/l skin - bruises lower abdominal wall; petechial rash b/l shins and distal thighs; stasis changes b/l shins; no cellulitis; calluses b/l feet neuro - strength 5/5 x 4 exts; EOMI, no nystagmus or strabismus psych - a/o x 1 (person) only labs reviewed; glucose >400; anion gap mildly elevated EKG - NSR, anterolateral ST segment depressions imaging reviewed including CTs ua with glucose and ketones A/P: 1. acute metabolic encephalopathy 2. fever without obvious source; ?viral (neg procal, b/l eye irritation, cough, etc) 3. BPH but no evidence of prostatitis 4. alcoholism 5. type 1 DM with mild DKA 6. CAD with abnormal EKG but neg trop and no ischemic symptoms 7. petechial rash on legs - cause? 8. factor 5 Leiden, etc - chronic coumadin, INR goal is presumably 2-3 but I cannot find an anticoagulation clinic note in his chart * send flu PCR; if flu is neg, consider a [employer] respiratory panel later today or in am * consider repeat cxr in am tomorrow in light of cough, fever; at this time no obvious pneumonia is seen, however * send blood/urine cx's * empiric abx * high-dose thiamine/folate IV due to #4 * for mild DKA - insulin infusion, serial labs, pharmacy consult * check TSH - has hypothyroidism * #7 -- viral? tick-borne (highly doubt)? vasculitis? consider checking sed rate/crp * agree with MRI brain - r/o subacute stroke; but even if CVA is present that would not explain #2 updated at bedside Sylvain Cho MD PG Care Time/CCT Total # of Minutes Spent Total Time Spent with Patient: Total time spent is greater than 50% in coordination of care (as documented) at patient's floor/unit and/or counseling patient: Coding Level of Care Code 34247 Initial Inpt Care Lvl 3 Diagnoses Acute alteration in mental status R41.82 Hypertension I10 Hypertension type: unspecified Diabetic ketoacidosis E11.10 Alcohol abuse F10.10 Kidney disease, chronic, stage II (mild, 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 transplanted heart: [place] heart Hypothyroidism E03.9 (1) CAD (coronary artery disease) Associated angina: without angina Coronary Disease-Associated Artery/Lesion type: [place] artery [place] vs. transplanted heart: [place] heart Qualified Code(s): I25.10 - Atherosclerotic heart disease of [place] coronary artery without angina pectoris (2) Hypertension Hypertension type: unspecified Qualified Code(s): I10 - Essential (primary) hypertension
[2021-07-13] MEDS ORDERED: STAT IV Infusion **Titration per Protocol STA ×3 (11:10→11:36)
[2021-07-13] MEDS ORDERED: THIAMINE HCL 500 MG in SODIUM CHLORIDE 0.9% 50 ML IV ONE (11:30)
[2021-07-13] MEDS ORDERED: FOLIC ACID 1 MG in SYRINGE 9.8 ML IV ONE (11:35)
[2021-07-13] MEDS ORDERED: GLUCAGON FOR INJ 1 MG VIAL SQ PRN (11:36)
[2021-07-13] MEDS ORDERED: DKA GOAL RANGE 150-250 mg/dl ONE ×2 (11:36→14:19)
[2021-07-13] MEDS ORDERED: CARBOHYDRATES FOR HYPOGLYCEMIA PO PRN (11:36)
[2021-07-13] MEDS ORDERED: DEXTROSE 50% 50 ML SYRINGE IV PRN (11:36)
[2021-07-13] MEDS ORDERED: GLUCOSE 40% GEL 15 GM TUBE PO PRN (11:36)
[2021-07-13] MEDS ORDERED: GLUCOSE 10 TABS/TUBE PO PRN (11:36)
[2021-07-13] MEDS ORDERED: SODIUM CHLORIDE 0.9% 1000ML 1,000 ML IV SCH (11:45)
[2021-07-13] MEDS ORDERED: INSULIN REGULAR 250 UNITS in SODIUM CHLORIDE 0.9% 247.5 ML IV SCH ×2 (11:45→14:19)
[2021-07-13] MEDS ORDERED: NovoLIN-R BOLUS FROM BAG IV ONE (11:45)
[2021-07-13 12:18] LABS: Influenza A virus by PCR Negative (Negative); Influenza B virus by PCR Negative (Negative)
[2021-07-13] MEDS ORDERED: GADOBUTROL 10ML VIAL IV ONE (13:03)
[2021-07-13] MEDS ORDERED: GADOBUTROL 65ML VIAL IV ONE (13:03)
--- NOTE | 2021-07-13 14:08 | Magnetic Resonance Report ---
MR brain wo/w con CLINICAL HISTORY: AMS, ? CVA. COMPARISON STUDY: 07/20/[address] brain from 07/13/2021 TECHNIQUE: Multiplanar multisequence images of the brain were performed before and after Gadavist, 8 mL of IV contrast. Diffusion weighted imaging and ADC mapping was also performed. FINDINGS: Extra-axial space: There is no evidence for a subdural hematoma, There are no extra-axial fluid zaki ections. Ventricles and cisterns: The ventricles are mildly dilated bilaterally. There is no evidence for mid line shift or mass effect. Parenchyma: On noncontrast images, there is no evidence for an acute hemorrhage or infarct. No acute diffusion abnormalities are noted on diffusion weighted imaging or ADC mapping. There is normal sutton -white differentiation. There is mild cerebral cortical atrophy present. The sulci and gyri appear no rmal without effacement. The midline structures are unremarkable. The posterior fossa structures appe ar normal. On postcontrast images, there is no evidence for enhancing mass lesion. Osseous structures: The paranasal sinuses are well aerated. There is mild mucosal thickening involvi ng the mastoid air cells on the right when compared to the left. Soft tissues: No focal soft tissue abnormalities are identified. IMPRESSION: No acute intracranial abnormalities. 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 ACT 112: Negative or not required by law. Electronically signed by: Pedro Thayer M.D. 07/13/2021 2:06 PM
[2021-07-13] MEDS ORDERED: FLUTICASONE PROPIONATE NA SPR 16 GM BTL PRN (14:19)
[2021-07-13] MEDS ORDERED: DC ALL PREVIOUSLY ORDERED DIABETES MEDS ONE (14:19)
[2021-07-13] MEDS ORDERED: INSULIN ASPART PER UNIT SC SCH (14:19)
[2021-07-13] MEDS ORDERED: SODIUM CHLORIDE 0.45 % 1,000 ML IV SCH (14:19)
[2021-07-13] MEDS ORDERED: PENDING 1/2NSS+20mEq KCL IVF SCH (14:19)
[2021-07-13] MEDS ORDERED: LORazepam 1 MG/2 ML VIAL IV PRN (14:19)
[2021-07-13] MEDS ORDERED: NITROGLYCERIN SL 0.4 MG/TAB TAB SL PRN (14:19)
[2021-07-13] MEDS ORDERED: PENDING D5 1/2NS+20mEq KCL IVF SCH (14:19)
[2021-07-13] MEDS ORDERED: ONDANSETRON INJ 2 MG/ML 2 ML VIAL IV PRN (14:19)
[2021-07-13] MEDS ORDERED: ACETAMINOPHEN 325 MG TAB PO PRN (14:19)
[2021-07-13] MEDS: PENDING 1/2NSS+20mEq KCL IVF SCH ×2 (14:51→16:42)
[2021-07-13] MEDS: PENDING D5 1/2NS+20mEq KCL IVF SCH ×2 (14:51→16:42)
[2021-07-13] MEDS ORDERED: cefTRIAXone SODIUM 1,000 MG in DEXTROSE 5% 50 ML IV ONE (15:00)
[2021-07-13 15:20] LABS: BUN Creatinine Ratio 18.6 (10-20); Calcium 9.3 mg/dl (8.5-10.1); Creatinine Clr Calc Pharmacy 44.6 ml/min; Est GFR (African American) 52.3 ml/min; Est GFR (Non-African American) 45.2 ml/min; Magnesium 1.8 mg/dl (1.7-2.4); Phosphorus 2.7 mg/dl (2.5-4.9); Potassium 4.2 mmol/L (3.5-5.1)
[2021-07-13] MEDS ORDERED: SODIUM CHLOR 0.45% + 20MEQ KCL 20 MEQ/1,000 ML BAG IV SCH (15:30)
[2021-07-13] MEDS ORDERED: NSS + 20MEQ KCL 20 MEQ/1,000 ML BAG IV SCH (15:45)
[2021-07-13] MEDS: FOLIC ACID 1 MG TAB PO SCH (16:02)
[2021-07-13] MEDS: WARFARIN SOD 5 MG TAB PO SCH (16:02)
[2021-07-13] MEDS: THIAMINE HCL 100 MG TAB PO SCH (16:03)
[2021-07-13] MEDS: INSULIN ASPART PER UNIT SC SCH ×2 (17:01→19:47)
[2021-07-13 19:13] LABS: Calcium 8.9 mg/dl (8.5-10.1); Creatinine Clr Calc Pharmacy 38.3 ml/min; Est GFR (African American) 43.5 ml/min; Est GFR (Non-African American) 37.5 ml/min; Magnesium 1.9 mg/dl (1.7-2.4); Phosphorus 2.2 mg/dl (2.5-4.9); Potassium 4.7 mmol/L (3.5-5.1)
[2021-07-13] MEDS: DOCUSATE SODIUM 100 MG CAP PO SCH (19:54)
[2021-07-13] MEDS: METOPROLOL TARTRATE 50 MG TAB PO SCH (19:54)
[2021-07-13] MEDS: ATORVASTATIN 40 MG TAB PO SCH (19:54)
[2021-07-13] MEDS ORDERED: PHARMACY GLYCEMIC MGMT CONSULT PRN (20:08)
[2021-07-13] MEDS ORDERED: INSULIN GLARGINE SOLOSTAR 100 UNITS/ML 3 ML PEN SC SCH (21:00)
--- NOTE | 2021-07-14 01:13 | Communication Note ---
Date of Service: July 14, 2021 Noted by RN that patient's troponin came back elevated to 5, which is a marked increase compared to previous draws. Patient's daytime notes were reviewed, and his significant history of CAD is noted. His RN denies any sort of chest discomfort or breathing difficulty. His VSS. He is therapeutic on Warfarin with INR 2.1 yesterday. Will obtain repeat ECG. Would consider transitioning to low- dose heparin gtt and holding warfarin once INR is subtherapeutic if troponin continues to up-trend, alongside possible cardiology consultation. Repeat troponin scheduled for 0600. Repeat INR scheduled with AM labs. Will monitor, in close touch with patient's RN.
[2021-07-14] MEDS: INSULIN ASPART PER UNIT SC SCH ×5 (03:36→21:26)
[2021-07-14] MEDS: LEVOTHYROXINE SODIUM 25 MCG TABLET PO SCH (06:10)
[2021-07-14 06:27] LABS: Basophils # (auto) 0.02 K/uL (0-0.2); Basophils % (auto) 0.3 %; Eosinophils # (auto) 0.06 K/uL (0-0.5); Eosinophils % (auto) 0.8 %; Hematocrit (blood only) 40.5 % (42-52); Hemoglobin 14.2 g/dL (14.0-18.0); Immature Granulocytes # (auto) 0.01 K/uL (0.00-0.02); Immature Granulocytes % (auto) 0.1 %; Lymphocytes # (auto) 1.68 K/uL (1.2-3.4); Lymphocytes % (auto) 23.1 %; Mean Corpuscular Hemoglobin 35.1 pg (25-34); Mean Corpuscular Hgb Conc 35.1 g/dL (32-36); Mean Corpuscular Volume 100.2 fL (80-100); Mean Platelet Volume 10.4 fL (7.4-10.4); Monocytes # (auto) 0.88 K/uL (0.11-0.59); Monocytes % (auto) 12.1 %; Neutrophils # (auto) 4.61 K/uL (1.4-6.5); Neutrophils % (auto) 63.6 %; Platelet Count 128 K/uL (130-400); RDW Coefficient of Variation 12.8 % (11.5-14.5); RDW Standard Deviation 46.4 fL (36.4-46.3); Red Blood Count 4.04 M/uL (4.7-6.1); White Blood Count 7.26 K/uL (4.8-10.8)
[2021-07-14 06:35] LABS: Prothrombin Time 18.8 Seconds (9.0-12.0)
[2021-07-14 06:44] LABS: Anion Gap 5 (3-11); BUN Creatinine Ratio 18.5 (10-20); Blood Urea Nitrogen 24 mg/dl (6-23); C Reactive Protein < 0.50 mg/dl (0-0.5); Calcium 8.4 mg/dl (8.5-10.1); Carbon Dioxide 26 mmol/L (21-32); Chloride 107 mmol/L (98-107); Creatinine Clr Calc Pharmacy 49.7 ml/min; Est GFR (African American) 59.7 ml/min; Est GFR (Non-African American) 51.5 ml/min; Glucose 179 mg/dl (70-99(Fasting)); Potassium 4.2 mmol/L (3.5-5.1); Sodium 138 mmol/L (136-145)
[2021-07-14 09:04] LABS: Folate (Folic Acid) > 22.30 ng/ml (>5.38)
[2021-07-14 09:05] LABS: Vitamin B12 328 pg/ml (211-911)
--- NOTE | 2021-07-14 09:12 | Cardiology Consultation ---
Date of Consultation July 14, 2021 Assessment & Plan (1) Non-ST elevation (NSTEMI) myocardial infarction: (2) CAD (coronary artery disease): (3) Hypertension: (4) Alcohol abuse: (5) Dyslipidemia: (6) Ascending aorta dilation: (7) Anticoagulant long-term use: ASSESSMENT/PLAN: 1. NSTEMI: No identifiable angina although there was mental status changes on presentation per records. Has known CAD including small vessel OM1 proximal stenosis in 2018. Troponin already trending downward. Normal LV systolic function. Troponin elevation likely due to demand ischemia in the setting of severe hypertension, or other driving force for his admission which included fever on presentation. Recommend conservative management. No indication for urgent cardiac catheterization. Completely asymptomatic at the time of our visit this morning. Already on anticoagulation therapy. Continue aspirin 81 mg daily. Continue beta-kristin, ARB, and high-intensity statin therapy. 2. CAD s/p RCA PCI (2018): No angina. Elevated troponin as above in the setting of severe hypertension and febrile illness. Continue aspirin 81 mg daily indefinitely. Continue high-intensity statin therapy, beta-kristin, ARB. Continue medical therapy. 3. Hypertension: Presentation concerning for hypertensive emergency with elevated troponin and mental status change. Blood pressure most recently normal. Continue home regimen. Blood pressure was well controlled when recently seen in the outpatient setting on 06/30/2021. 4. Alcohol abuse: Would avoid alcohol. He has been counseled. 5. Dyslipidemia: Continue high-intensity statin therapy. 6. Dilated ascending aorta: Surveillance is no longer being performed as patient/family was not interested in pursuing aortic valve repair/replacement if necessary in the future given his other comorbidities. Avoid strenuous lifting for which the Valsalva maneuver is required. Continue beta-kristin therapy. He remains asymptomatic. 7. Edema: Has chronic edema which appears improved today. 8. Anticoagulation therapy: He is on anticoagulation therapy for hypercoagulable state with left lower extremity DVT and extensive pulmonary emboli. 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 INR [place] [facility]. 9. Confusion: Seems to be a baseline when evaluated this morning. As per primary service. 10. Disposition: Attempt was made to contact patient's for update, but there was no answer. Patient care communicated with primary service, Maria iMke. Please call with any other questions or concerns. Thank you for allowing me to participate in the care of your patient. Please call for any other questions or concerns. Sincerely, Patel Castillo M.D. History of Present Illness Reason for Consultation: NSTEMI Requesting Physician: Maria Mike Attending Physician: Andrew Castellanos MD History of Present Illness Mr. Cagle is a pleasant 80-year-old gentleman with a history significant for CAD s/p RCA SC and PCI, type 1 diabetes, hypertension, and dyslipidemia. He also has a history of stroke (2014) and sleep apnea on BiPAP. In December of 2015, he had DVT and extensive pulmonary emboli and was diagnosed with factor V Leiden an d anticardiolipin antibody. He is on lifelong anticoagulation therapy. On 10/12/2017, he was hospitalized with chest discomfort (indigestion) with left arm radiation and dyspnea with exertion. Peak troponin was 0.932. He underwent cardiac catheterization and RCA PCI. On 10/21/2017, he was again seen in the ER for TIA symptoms with expressive aphasia with spontaneous resolution of his symptoms. No changes were made at that time. He has had the following studies/procedures: 1. Nuclear stress 08/20/2014: No evidence of infarct or ischemia. Small inferior defect consistent with diaphragmatic attenuation. EF 65%. Normal wall motion. 2. Echo 02/20/2015: Normal LV systolic function and wall motion. EF 65-70%. Mild AI. Negative bubble study. 3. Carotid duplex 02/19/2015: No significant stenosis. 4. CT angiogram neck 02/19/2015: Left vertebral artery 50% proximally and distally due to mass effect from facet hypertrophy. Mild to moderate calcified plaque within bilateral carotid bifurcations. 5. Event monitor 03/05/2015 to 03/13/2015: Sinus rhythm. PACs. PVC. Short nonsustained atrial run. No symptoms reported. 6. CTA 12/15/2015: Extensive bilateral pulmonary emboli. 7. Echo 12/16/2015: Normal LV size and systolic function. EF 65-70%. No wall motion abnormalities. Mild LVH. Type 1 diastolic dysfunction. Sclerotic aortic valve with trace AI. RVSP 38 8. Echo 07/08/2018: Normal LV size, wall motion, systolic function. EF 60- 65%. Mild LVH. Type 1 diastolic dysfunction. Sclerotic aortic valve. Mild MR. RVSP 30. Visualized portion of ascending aorta is not significantly dilated (3.5 cm). 8. Echo 10/12/2017: Normal LV systolic function. Hypokinesis of the basal inferior wall. EF 55-60%. Type 1 diastolic dysfunction. Mild LVH. Mild AI. Mild to moderate MR. Normal RVSP. 9. Cardiac catheterization 10/13/2017: Heavily calcified proximal to mid LAD with 30-40% diffuse disease. Small mid to distal vessel tortuous with luminal irregularities. Small caliber circumflex. Proximal circumflex 30%. Small OM1 focal 90% proximal stenosis. Proximal RCA 95% focal hazy stenosis. Mid RCA 20- 30%. Distal RCA 30-40%. LVEDP 15. Proximal RCA underwent PCI with 3.5 x 18 mm [place] ERIC, post dilated with 3.[address] chest 10/12/2017: Dilated ascending aorta 4 x 4 cm. No dissection. No PE. 11. Dobutamine stress echo 08/12/2018: Negative for ischemia at 90% MPHR. Normal LV systolic function. Normal wall motion. He was admitted on 07/13/2021 with mental status change and hyperglycemia. He does not recall why he was admitted but states that he feels back to baseline now. According to records, his provided the majority of presenting history. He apparently had been more confused over the past week. He has been having issues with coughing while swallowing which is a chronic issue. His last alcoholic beverage was the evening prior to presentation. he was hypertensive in the emergency department with a blood pressure as high as 240/104 mmHg initially and a systolic blood pressure approximately 2 hours later as high as 247 mmHg. He also had an elevated temperature of 38.5 C while in the emergency department on presentation. Unfortunately, he is unable to provide much history on presenting symptoms. He states that he remembers being home and then next thing he knows he was in the hospital. He denies any recent chest discomfort, shortness of breath at rest, syncope, near-syncope, palpitations, edema, or bleeding. He feels back to baseline based on conversation this morning when he was evaluated. He has chronic but stable dyspnea with exertion while climbing stairs. A phone call was placed to his to obtain more history, however there was no answer this afternoon. Review of systems: As above. Review of systems otherwise negative/unremarkable, or unobtainable. Family history:Brother had SC at 60. His son had SC at 44. Social history:Denies tobacco. Consumes several alcoholic beverages per day (approximately 4-6 drinks with scotch or bourbon). No drugs. 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 . Two children. He was alone in his hospital room. Allergies Allergy/AdvReac Type Severity Reaction Status Date / Time clindamycin Allergy Intermediate Rash Verified 06/30/21 13:39 Sulfa (Sulfonamide Allergy Intermediate HIVES Verified 07/13/21 19:00 Antibiotics) lisinopril Allergy Unknown Unknown Verified 07/13/21 19:00 Penicillins Allergy Unknown Unknown Verified 06/30/21 13:39 Home Medications Medication Instructions Recorded Confirmed Type multivitamin 1 tab PO QDL #0 11/28/08 07/13/21 History docusate sodium 100 mg capsule 300 mg PO HS #0 cap 01/19/17 07/13/21 History magnesium 250 mg tablet 250 mg PO QDL #0 01/19/17 07/13/21 History fluticasone propionate 50 2 sprays INTNAS DAILY PRN 01/10/19 07/13/21 History mcg/actuation nasal spray,suspension lutein 20 mg capsule 20 mg PO QDL cap 01/10/19 07/13/21 History thiamine HCl (vitamin B1) 100 mg 100 mg PO QDL tab 01/10/19 07/13/21 History tablet aspirin 81 mg tablet,delayed 81 mg PO QAM 11/10/19 07/13/21 History release glucagon HCl 1 mg solution for 1 mg SUBCUT Q20M PRN #1 ea 06/18/20 07/13/21 Rx injection (Glucagon (HCl) Emergency Kit) glucagon 3 mg/actuation nasal 3 mg INTRANASAL ONCE #2 ea 07/30/20 07/13/21 Rx spray (Baqsimi) cholecalciferol (vitamin D3) 50 50 mcg PO DAILY 07/31/20 07/13/21 History mcg (2,000 unit) capsule Humalog U-100 Insulin 100 unit/mL 40 unit SQ .COMPLEX #20 ml NS 09/30/20 07/13/21 Rx subcutaneous solution (insulin lispro) isosorbide mononitrate 30 mg 30 mg PO QAM #30 tab 10/31/20 07/13/21 Rx tablet,extended release 24 hr atorvastatin 40 mg tablet 40 mg PO HS #90 tab 12/02/20 07/13/21 Rx metoprolol tartrate 50 mg tablet 50 mg PO BID #180 tab 12/02/20 07/13/21 Rx warfarin 5 mg tablet 5 mg PO DAILY@1500 #90 tab 12/02/20 07/13/21 Rx finasteride 5 mg tablet 5 mg PO DAILY #90 tab 12/30/20 07/13/21 Rx doxazosin 4 mg tablet 4 mg PO QAM #90 tab 01/27/21 07/13/21 Rx folic acid 1 mg tablet See Rx Instructions .ROUTE 04/24/21 07/13/21 Rx .COMPLEX #90 tablet nitroglycerin 0.4 mg sublingual 0.4 mg SUBLINGUAL UD PRN #25 tab 05/21/21 07/13/21 Rx tablet (Nitrostat) insulin glargine 100 unit/mL See Rx Instructions SQ DAILY 90 06/16/21 07/13/21 Rx subcutaneous solution (Lantus Days #10 ml U-100 Insulin) losartan 25 mg tablet 50 mg PO DAILY #180 tab 06/27/21 07/13/21 Rx levothyroxine 25 mcg tablet 25 mcg PO QAM #30 tab 07/03/21 07/13/21 Rx Patient History Medical History Acquired claw toe of both feet Acquired hallux valgus of both feet Anti-cardiolipin antibody positive Anticoagulant long-term use Ascending aorta dilation Back pain Background diabetic retinopathy associated with type 1 diabetes mellitus BPH loc w urin obs/LUTS CAD (coronary artery disease) Chronic fatigue disorder Complex sleep apnea syndrome CVA (cerebral vascular accident) Diabetes type 1, uncontrolled 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 Diabetic peripheral neuropathy associated with type 1 diabetes mellitus Dysphagia, oropharyngeal phase Factor V Leiden mutation GERD without esophagitis Glaucoma Gout History of diabetic ulcer of foot Hoarseness Hyperlipemia Hypertension Hypothyroidism Insomnia Kidney disease, chronic, stage II (mild, 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) Left inguinal hernia Leukopenia Microscopic hematuria NSTEMI (non-ST elevated myocardial infarction) Organic hypersomnia Pre-ulcerative corn or callous Primary hypercoagulable state Proteinuria Type 1 diabetes mellitus with complications Vertebral artery stenosis/occlusion Vitamin D deficiency Surgical History H/O hernia repair History of hand surgery History of hydrocelectomy History of surgical removal of ganglion cyst Hx of appendectomy S/P coronary artery stent placement Family History Mother , in her 60s of heart disease COPD (chronic obstructive pulmonary disease) Coronary heart disease Heart disease CHF Diabetes Hypertension Father , age 62 of melanoma Melanoma Heart disease Hypertension Brother Coronary heart disease Hypertension Myocardial infarction Son Diabetes Denies family history of Ovarian cancer Prostate cancer Breast cancer Lung cancer Colorectal cancer Stroke Social History Smoking Status: Never smoker Second Hand Exposure: No; Hx Alcohol Use: Yes Alcohol type: hard liquor Alcohol Intake Frequency: 4 or More x per/Week Alcohol Intake Frequency Comment: Two shots per night (or more) Hx Substance Use: No Preferred Language: [place] Verdean Communication Ability: Effective Visual Impairment: Limited Hearing Ability: Normal 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 Beliefs That Will Affect Care: None marital status: Current Living Situation: Spouse current occupational status: retired current occupation: Retired from [employer] [place] [employer] age 40 to How many Children do You have: 2 Other Information That Helps Us Care for You: No Feels Safe at Home: Yes Safety Concerns: Feels Safe At This Time Childhood Exposure to Second-Hand Smoke: Yes caffeine: Yes Dental Care, Regularly: Yes Physical Activity Frequency: Does not Exercise Seatbelt Use: always Sunscreen Use: Yes Assistive Devices: Cane and CPAP Assistive Devices Comment: BIPAP HS Physical Exam Physical Exam: Gen.: No acute distress. Alert and oriented to place, self, year, month. HEENT: Anicteric sclera. Neck: No JVD. Normal carotid upstrokes bilaterally. Cardiac: PMI was nonpalpable. No ventricular heave. Regular. No ectopy. Normal S1-S2. 1/6 early peaking systolic ejection murmur. No rubs or gallops. Pulmonary: Clear to auscultation bilaterally without wheezes, rales, or rhonchi. Abdomen: Soft, nontender, nondistended, with normoactive bowel sounds. No bruits noted. Extremities: 2+ radial pulses bilaterally. 2+ posterior tibialis pulses bilaterally. Trace bilateral lower extremity edema, R > L. No cyanosis. Psychiatric: Affect appears appropriate. Results & Data ([facility]) Vital Signs (Past 12 Hours) Vital Signs Temp Pulse Pulse Resp BP Pulse Ox 07/14/21 07:29 36.7 C 65 18 151/65 H 99 07/14/21 04:35 36.6 C 70 16 145/58 H 98 07/14/21 03:15 60 16 98 07/13/21 23:18 63 07/13/21 22:55 36.9 C 74 18 144/56 H 97 07/13/21 22:40 65 20 95 Intake & Output 07/12/21 07/13/21 07/14/21 07/15/21 06:59 06:59 06:59 06:59 Intake Total 976.000 / 680.142 1454 / 1345 Output Total 851 / 851 Balance 125.000 / 672.000 9143 / 1345 Weight 194 lb 3.636 oz 194 lb 3.636 oz Laboratory Results Laboratory Results - last 24 hr 07/13/21 07/13/21 07/13/21 14:33 14:33 14:33 WBC RBC Hgb Hct MCV MCH MCHC RDW Std Deviation RDW Coeff of Mary Plt Count MPV Immature Gran % (Auto) Neut % (Auto) Lymph % (Auto) [place] % (Auto) Eos % (Auto) Baso % (Auto) Neut # (Auto) Lymph # (Auto) [place] # (Auto) Eos # (Auto) Baso # (Auto) Immature Gran # (Auto) PT INR VBG pH 7.42 H Sodium 136 Potassium 4.2 Chloride 101 Carbon Dioxide 23 Anion Gap 12 H BUN 27 H Creatinine 1.45 H Est Cr Clr Drug Dosing 44.6 Est GFR ( Amer) 52.3 Est GFR (Non-Af Amer) 45.2 BUN/Creatinine Ratio 18.6 Glucose 301 H* POC Glucose Calcium 9.3 Phosphorus 2.7 Magnesium 1.8 Troponin I 0.04 C-Reactive Protein Vitamin B12 Folate 07/13/21 07/13/21 07/13/21 14:59 16:13 16:52 WBC RBC Hgb Hct MCV MCH MCHC RDW Std Deviation RDW Coeff of Mary Plt Count MPV Immature Gran % (Auto) Neut % (Auto) Lymph % (Auto) [place] % (Auto) Eos % (Auto) Baso % (Auto) Neut # (Auto) Lymph # (Auto) [place] # (Auto) Eos # (Auto) Baso # (Auto) Immature Gran # (Auto) PT INR VBG pH Sodium Potassium Chloride Carbon Dioxide Anion Gap BUN Creatinine Est Cr Clr Drug Dosing Est GFR ( Amer) Est GFR (Non-Af Amer) BUN/Creatinine Ratio Glucose POC Glucose 299 H 208 H 250 H Calcium Phosphorus Magnesium Troponin I C-Reactive Protein Vitamin B12 Folate 07/13/21 07/13/21 07/13/21 17:43 18:39 18:39 WBC RBC Hgb Hct MCV MCH MCHC RDW Std Deviation RDW Coeff of Mary Plt Count MPV Immature Gran % (Auto) Neut % (Auto) Lymph % (Auto) [place] % (Auto) Eos % (Auto) Baso % (Auto) Neut # (Auto) Lymph # (Auto) [place] # (Auto) Eos # (Auto) Baso # (Auto) Immature Gran # (Auto) PT INR VBG pH 7.45 H Sodium 138 Potassium 4.7 Chloride 104 Carbon Dioxide 27 Anion Gap 7 BUN 27 H Creatinine 1.69 H Est Cr Clr Drug Dosing 38.3 Est GFR ( Amer) 43.5 Est GFR (Non-Af Amer) 37.5 BUN/Creatinine Ratio 16.0 Glucose 225 H POC Glucose 248 H Calcium 8.9 Phosphorus 2.2 L Magnesium 1.9 Troponin I C-Reactive Protein Vitamin B12 Folate 07/13/21 07/13/21 07/13/21 18:42 19:45 20:47 WBC RBC Hgb Hct MCV MCH MCHC RDW Std Deviation RDW Coeff of Mary Plt Count MPV Immature Gran % (Auto) Neut % (Auto) Lymph % (Auto) [place] % (Auto) Eos % (Auto) Baso % (Auto) Neut # (Auto) Lymph # (Auto) [place] # (Auto) Eos # (Auto) Baso # (Auto) Immature Gran # (Auto) PT INR VBG pH Sodium Potassium Chloride Carbon Dioxide Anion Gap BUN Creatinine Est Cr Clr Drug Dosing Est GFR ( Amer) Est GFR (Non-Af Amer) BUN/Creatinine Ratio Glucose POC Glucose 258 H 192 H 179 H Calcium Phosphorus Magnesium Troponin I C-Reactive Protein Vitamin B12 Folate 07/13/21 07/13/21 07/13/21 21:46 22:43 23:15 WBC RBC Hgb Hct MCV MCH MCHC RDW Std Deviation RDW Coeff of Mary Plt Count MPV Immature Gran % (Auto) Neut % (Auto) Lymph % (Auto) [place] % (Auto) Eos % (Auto) Baso % (Auto) Neut # (Auto) Lymph # (Auto) [place] # (Auto) Eos # (Auto) Baso # (Auto) Immature Gran # (Auto) PT INR VBG pH Sodium Potassium Chloride Carbon Dioxide Anion Gap BUN Creatinine Est Cr Clr Drug Dosing Est GFR ( Amer) Est GFR (Non-Af Amer) BUN/Creatinine Ratio Glucose POC Glucose 148 H 142 H Calcium Phosphorus Magnesium Troponin I 5.13 H* C-Reactive Protein Vitamin B12 Folate 07/13/21 07/14/21 07/14/21 23:49 01:08 03:28 WBC RBC Hgb Hct MCV MCH MCHC RDW Std Deviation RDW Coeff of Mary Plt Count MPV Immature Gran % (Auto) Neut % (Auto) Lymph % (Auto) [place] % (Auto) Eos % (Auto) Baso % (Auto) Neut # (Auto) Lymph # (Auto) [place] # (Auto) Eos # (Auto) Baso # (Auto) Immature Gran # (Auto) PT INR VBG pH Sodium Potassium Chloride Carbon Dioxide Anion Gap BUN Creatinine Est Cr Clr Drug Dosing Est GFR ( Amer) Est GFR (Non-Af Amer) BUN/Creatinine Ratio Glucose POC Glucose 136 H 103 H 166 H Calcium Phosphorus Magnesium Troponin I C-Reactive Protein Vitamin B12 Folate 07/14/21 07/14/21 07/14/21 06:03 06:03 06:03 WBC 7.26 RBC 4.04 L Hgb 14.2 Hct 40.5 L MCV 100.2 H MCH 35.1 H MCHC 35.1 RDW Std Deviation 46.4 H RDW Coeff of Mary 12.8 Plt Count 128 L MPV 10.4 Immature Gran % (Auto) 0.1 Neut % (Auto) 63.6 Lymph % (Auto) 23.1 [place] % (Auto) 12.1 Eos % (Auto) 0.8 Baso % (Auto) 0.3 Neut # (Auto) 4.61 Lymph # (Auto) 1.68 [place] # (Auto) 0.88 H Eos # (Auto) 0.06 Baso # (Auto) 0.02 Immature Gran # (Auto) 0.01 PT 18.8 H INR 2.0 H VBG pH Sodium 138 Potassium 4.2 Chloride 107 Carbon Dioxide 26 Anion Gap 5 BUN 24 H Creatinine 1.30 D Est Cr Clr Drug Dosing 49.7 Est GFR ( Amer) 59.7 Est GFR (Non-Af Amer) 51.5 BUN/Creatinine Ratio 18.5 Glucose 179 H POC Glucose Calcium 8.4 L Phosphorus Magnesium Troponin I C-Reactive Protein < 0.50 Vitamin B12 Folate 07/14/21 07/14/21 07/14/21 06:03 07:28 08:04 WBC RBC Hgb Hct MCV MCH MCHC RDW Std Deviation RDW Coeff of Mary Plt Count MPV Immature Gran % (Auto) Neut % (Auto) Lymph % (Auto) [place] % (Auto) Eos % (Auto) Baso % (Auto) Neut # (Auto) Lymph # (Auto) [place] # (Auto) Eos # (Auto) Baso # (Auto) Immature Gran # (Auto) PT INR VBG pH Sodium Potassium Chloride Carbon Dioxide Anion Gap BUN Creatinine Est Cr Clr Drug Dosing Est GFR ( Amer) Est GFR (Non-Af Amer) BUN/Creatinine Ratio Glucose POC Glucose 188 H Calcium Phosphorus Magnesium Troponin I 4.20 H* C-Reactive Protein Vitamin B12 328 Folate > 22.30 07/14/21 07/14/21 11:37 14:02 WBC RBC Hgb Hct MCV MCH MCHC RDW Std Deviation RDW Coeff of Mary Plt Count MPV Immature Gran % (Auto) Neut % (Auto) Lymph % (Auto) [place] % (Auto) Eos % (Auto) Baso % (Auto) Neut # (Auto) Lymph # (Auto) [place] # (Auto) Eos # (Auto) Baso # (Auto) Immature Gran # (Auto) PT INR VBG pH Sodium Potassium Chloride Carbon Dioxide Anion Gap BUN Creatinine Est Cr Clr Drug Dosing Est GFR ( Amer) Est GFR (Non-Af Amer) BUN/Creatinine Ratio Glucose POC Glucose 288 H 255 H Calcium Phosphorus Magnesium Troponin I C-Reactive Protein Vitamin B12 Folate Diagnostic Findings Telemetry personally reviewed: No arrhythmia. Brain MRI 07/13/2021: No acute intracranial abnormalities. Mild cerebral cortical atrophy. Chest x-ray 07/13/2021: Decreased inspiratory effort with minimal bibasilar atelectasis per Radiology. CT abdomen/pelvis 07/13/2021: Mild bilateral perinephric stranding with no definite evidence for pyelonephritis. Noncontrast CT. Small to moderate hiatal hernia. ECG personally reviewed: ECG 07/13/2021 at 8:51 a.m.: Sinus rhythm with first-degree AV block. Lateral ST/T-wave abnormality. Possible anteroseptal infarct. Compared to outpatient ECG on 11/10/2019, lateral ST/T-wave abnormality is now present. ECG 07/14/2021 at 12:31 a.m.: Sinus rhythm first-degree AV block 66 beats per minute. Prolonged QT. lateral ST/T-wave abnormality improved. Echo 07/14/2021: Normal LV size, wall motion, systolic function. EF 60-65%. Moderate LVH. Sclerotic aortic valve. Mild MR. RVSP 36. Medications Administered Current Inpatient Medications Acetaminophen (Acetaminophen 325 Mg Tab) 650 mg PO Q6H PRN PRN Reason: Pain or Fever Stop: 08/12/21 14:18 Aspirin (Aspirin 81 Mg Ectab) 81 mg PO QAM PENNY Stop: 08/13/21 08:59 Last Admin: 07/14/21 09:45 Dose: 81 mg Documented by: Atorvastatin Calcium (Atorvastatin 40 Mg Tab) 40 mg PO HS PENNY Stop: 08/12/21 20:59 Last Admin: 07/13/21 19:54 Dose: 40 mg Documented by: Dextrose (Dextrose 50% 50 Ml Syringe) 25 - 50 ml IV UD PRN; Protocol PRN Reason: Hypoglycemia Protocol Stop: 08/12/21 11:35 Docusate Sodium (Docusate Sodium 100 Mg Cap) 300 mg PO HS PENNY Stop: 08/12/21 20:59 Last Admin: 07/13/21 19:54 Dose: 300 mg Documented by: Doxazosin Mesylate (Doxazosin Mesylate 4 Mg Tab) 4 mg PO QAM PENNY Stop: 08/13/21 08:59 Last Admin: 07/14/21 09:45 Dose: 4 mg Documented by: Finasteride (Finasteride 5 Mg Tab) 5 mg PO DAILY PENNY Stop: 08/13/21 08:59 Last Admin: 07/14/21 09:44 Dose: 5 mg Documented by: Fluticasone Propionate (Fluticasone Propionate Na Spr 16 Gm Btl) 2 sprays NA DAILY PRN PRN Reason: Nasal Congestion Stop: 08/12/21 14:18 Folic Acid (Folic Acid 1 Mg Tab) 1 mg PO DAILY [facility] Stop: 08/12/21 14:44 Last Admin: 07/14/21 09:40 Dose: 1 mg Documented by: Glucagon (Glucagon For Inj 1 Mg Vial) 1 mg SQ UD PRN; Protocol PRN Reason: Hypoglycemia Protocol Stop: 08/12/21 11:35 Glucose (Glucose 10 Tabs/Tube) 4 - 8 tabs PO UD PRN; Protocol PRN Reason: Hypoglycemia Protocol Stop: 08/12/21 11:35 Glucose (Glucose 40% Gel 15 Gm Tube) 15 - 30 gm PO UD PRN; Protocol PRN Reason: Hypoglycemia Protocol Stop: 08/12/21 11:35 Lorazepam (Ativan) 1 mg in 2 mls @ 2 mls/min IV Q4H PRN PRN Reason: ETOH with drawal Stop: 08/12/21 14:18 Ceftriaxone Sodium 2,000 mg/ (Dextrose) 70 mls @ 140 mls/hr IV Q24H [facility]; Protocol Stop: 07/24/21 09:59 Last Infusion: 07/14/21 11:31 Dose: Infused Documented by: Insulin Aspart (Insulin Aspart Per Unit) 0 units SC ACHS [facility] Stop: 08/13/21 03:59 Last Admin: 07/14/21 12:00 Dose: 14 units Documented by: Insulin Aspart (Insulin Aspart Per Unit) 0 units SC 0200 [facility] Stop: 07/15/21 02:01 Insulin Glargine (Insulin Glargine Solostar 100 Units/Ml 3 Ml Pen) 0 units SC [facility]; Protocol Stop: 08/13/21 20:59 Isosorbide Mononitrate (Isosorbide [place] Extended Rel 30 Mg Tabcr) 30 mg PO QAM [facility] Stop: 08/13/21 08:59 Last Admin: 07/14/21 09:43 Dose: 30 mg Documented by: Levothyroxine Sodium (Levothyroxine Sodium 25 Mcg Tablet) 25 mcg PO DAILYBB [facility] Stop: 08/13/21 06:29 Last Admin: 07/14/21 06:10 Dose: 25 mcg Documented by: Losartan Potassium (Losartan Potassium 50 Mg Tab) 50 mg PO DAILY [facility] Stop: 08/13/21 08:59 Last Admin: 07/14/21 09:42 Dose: 50 mg Documented by: Magnesium Oxide (Magnesium Oxide 400 Mg Tab) 400 mg PO QDL [facility] Stop: 08/13/21 11:29 Last Admin: 07/14/21 11:44 Dose: 400 mg Documented by: Metoprolol Tartrate (Metoprolol Tartrate 50 Mg Tab) 50 mg PO BID [facility] Stop: 08/12/21 20:59 Last Admin: 07/14/21 10:18 Dose: 50 mg Documented by: Miscellaneous (Carbohydrates For Hypoglycemia ) 15 - 30 gm PO UD PRN PRN Reason: Hypoglycemia Protocol Stop: 08/12/21 11:35 Miscellaneous Information (Pharmacy Glycemic Mgmt Consult) 1 ea N/A UD PRN PRN Reason: Consult Stop: 08/12/21 20:07 Multivitamins (Multivitamin Tab) 1 tab PO QDL [facility] Stop: 08/13/21 11:29 Last Admin: 07/14/21 11:44 Dose: 1 tab Documented by: Nitroglycerin (Nitroglycerin Sl 0.4 Mg/Tab Tab) 0.4 mg SL UD PRN PRN Reason: Chest Pain Stop: 08/12/21 14:18 Ondansetron HCl (Ondansetron Inj 2 Mg/Ml 2 Ml Vial) 4 mg IV Q6H PRN PRN Reason: Nausea Stop: 08/12/21 14:18 Thiamine HCl (Thiamine Hcl 100 Mg Tab) 100 mg PO QDL [facility] Stop: 08/12/21 14:44 Last Admin: 07/14/21 11:44 Dose: 100 mg Documented by: Vitamin D (Cholecalciferol 1,000 Units 25 Mcg Tab) 2,000 units PO DAILY [facility] Stop: 08/13/21 08:59 Last Admin: 07/14/21 09:42 Dose: 2,000 units Documented by: Warfarin Sodium (Warfarin Sod 5 Mg Tab) 5 mg PO DAILY@1600 [facility] Stop: 08/12/21 15:59 Last Admin: 07/13/21 16:02 Dose: 5 mg Documented by: PG Care Time/CCT Total # of Minutes Spent Total Time Spent with Patient: Total time spent is greater than 50% in coordination of care (as documented) at patient's floor/unit and/or counseling patient: Coding Level of Care Code 27305 Initial In Care Lvl 3 Diagnoses Non-ST elevation (NSTEMI) myocardial infarction I21.4 CAD (coronary artery disease) I25.10 Coronary Disease-Associated Artery/Lesion type: [place] artery [place] vs. transplanted heart: [place] heart Associated angina: without angina Hypertension I10 Hypertension type: unspecified Alcohol abuse F10.10 Dyslipidemia E78.5 Ascending aorta dilation I77.810 Anticoagulant long-term use Z79.01 (1) CAD (coronary artery disease) Coronary Disease-Associated Artery/Lesion type: [place] artery [place] vs. transplanted heart: [place] heart Associated angina: without angina Qualified Code(s): I25.10 - Atherosclerotic heart disease of [place] coronary artery without angina pectoris (2) Hypertension Hypertension type: unspecified Qualified Code(s): I10 - Essential (primary) hypertension
--- NOTE | 2021-07-14 09:13 | Pharmacy Report ---
Pharmacy Glycemic Short Note 2 - Date of Service July 14, 2021 - Glycemic Short BSG Results (Last 24 hours): 07/13/21 07/13/21 07/13/21 09:00 09:01 11:17 Glucose 420 H* POC Glucose 397 H* 415 H* 07/13/21 07/13/21 07/13/21 13:02 13:57 13:58 Glucose POC Glucose 352 H* 547 H* 354 H* 07/13/21 07/13/21 07/13/21 14:00 14:33 14:59 Glucose 301 H* POC Glucose 338 H* 299 H 07/13/21 07/13/21 07/13/21 16:13 16:52 17:43 Glucose POC Glucose 208 H 250 H 248 H 07/13/21 07/13/21 07/13/21 18:39 18:42 19:45 Glucose 225 H POC Glucose 258 H 192 H 07/13/21 07/13/21 07/13/21 20:47 21:46 22:43 Glucose POC Glucose 179 H 148 H 142 H 07/13/21 07/14/21 07/14/21 23:49 01:08 03:28 Glucose POC Glucose 136 H 103 H 166 H 07/14/21 07/14/21 06:03 07:28 Glucose 179 H POC Glucose 188 H OUTPATIENT ANTIDIABETIC REGIMEN: * Lantus 23 units SC daily * Humalog SC ACHS - SSI up to 40 units/day * HbA1c: 8.8% (06/25/21) ASSESSMENT: * PL is a 80 year old male with T1DM who presented to ED on 07/13/21 with altered mental status, likely related to hyperglycemia/DKA * Pertinent labs on admission, serum bicarbonate 22, anion gap 13, glucose 420, VBG pH 7.45 * Insulin infusion initiated at time of presentation, repeat labs last evening much improved, basal insulin given and insulin infusion transitioned off overnight * Will plan to keep once daily Lantus scheduled at bedtime PLAN FOR INPATIENT GLYCEMIC CONTROL: * Basal insulin * Lantus 20-23 units SQ HS * Bolus insulin * NovoLog per scale ACHS or Q6hrs while NPO * Goal Range: Low 110 mg/dL - High 140 mg/dL * Correction Factor: 20 mg/dL/unit * Nutritional / Prandial insulin per carb ratio of 1 unit per 6 grams CHO consumed * 0200 check with same parameters PLAN FOR DISCHARGE: * Reasonable goal for this patient based on age and multiple comorbidities would be less than 8% * HbA1c of 8.8% is above goal * Patient follows with [facility], would recommend prompt follow-up upon discharge for assessment
[2021-07-14] MEDS: FOLIC ACID 1 MG TAB PO SCH (09:40)
[2021-07-14] MEDS: LOSARTAN POTASSIUM 50 MG TAB PO SCH (09:42)
[2021-07-14] MEDS: CHOLECALCIFEROL 1,000 UNITS 25 MCG TAB PO SCH (09:42)
[2021-07-14] MEDS: ISOSORBIDE MONO EXTENDED REL 30 MG TABCR PO SCH (09:43)
[2021-07-14] MEDS: FINASTERIDE 5 MG TAB PO SCH (09:44)
[2021-07-14] MEDS: DOXAZosin MESYLATE 4 MG TAB PO SCH (09:45)
[2021-07-14] MEDS: ASPIRIN 81 MG ECTAB PO SCH (09:45)
[2021-07-14] MEDS ORDERED: cefTRIAXone SODIUM 2,000 MG in DEXTROSE 5% 50 ML IV SCH (10:00)
[2021-07-14] MEDS: METOPROLOL TARTRATE 50 MG TAB PO SCH ×2 (10:18→21:25)
[2021-07-14] MEDS: MULTIVITAMIN TAB PO SCH (11:44)
[2021-07-14] MEDS: THIAMINE HCL 100 MG TAB PO SCH (11:44)
[2021-07-14] MEDS: MAGNESIUM OXIDE 400 MG TAB PO SCH (11:44)
[2021-07-14] MEDS ORDERED: INSULIN GLARGINE SOLOSTAR 100 UNITS/ML 3 ML PEN SC ONE (12:00)
--- NOTE | 2021-07-14 14:30 | XCELERA ---
[id number]
--- NOTE | 2021-07-14 15:19 | Hospitalist Progress Note ---
Date of Service July 14, 2021 Assessment & Plan (1) Metabolic encephalopathy: Plan: In setting of acute DKA, dehydration, and fever (only one true fever documented since admission) Admitted to telemetry, empirically started on Rocephin 2g IV daily, uncertain as to what is actually being treated, UA unremarkable and blood cultures thus far negative for growth MRI ordered and completed, no acute stroke DKA was treated with aggressive IVF hydration and IV insulin gtt which has since been converted back to lantus/log Pharmacy consulted for glycemic management, appreciate assistance His AMS has cleared today, he is mentating at baseline per (2) Diabetic ketoacidosis: Plan: As above, presented with hyperglycemia with slightly open gap Treated with IV insulin gtt and aggressive hydration Gap now closed, DKA now resolved, back on lantus/log regimen (3) Non-ST elevation (NSTEMI) myocardial infarction: Plan: Had abnormal EKG on admission, minimal ST depression in lateral leads Initial trop negative, but f/u trop elevated at 5.13 and 3rd trop 4.20 Echocardiogram ordered to update, results as above, EF preserved, no WM abnormalities Cardiology consulted, d/w Dr. Castillo who is known to patient, recommends conservative management at this time, appreciate input ?demand ischemia d/t fever and hypertensive urgency (4) Fever: Plan: Etiology?? Could be viral Blood cultures thus far no growth UA unremarkable CXR no evidence of PNA BioFire ordered as well as Lyme IgM w/ reflex WB No leukocytosis, but did have subtle left shift on differential ordered in ED (5) Hypertension: Plan: BP elevated 200/100s on admission which has since normalized Continue home medication as prescribed pre-hospital (6) Alcohol abuse: Plan: Alcohol abuse could be cause of patient's altered mental status We will monitor for symptoms of alcohol withdrawal We will place the patient on as needed ativan if alcohol withdrawal symptoms ensue We will place the patient on thiamine, multivitamin, and folic acid Vitamin B12 and folate level ordered d/t macrocytosis (7) Kidney disease, chronic, stage II (mild, 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): Plan: Nephrotoxins will be avoided Renal fxn now at baseline (8) CAD (coronary artery disease): Plan: We will maintain the patient on his home regimen of cardiac medications: Aspirin 81 mg daily Lipitor 40 mg daily Isosorbide 30 mg daily Losartan 25 mg daily Metoprolol 50 mg twice daily Abnormal EKG and +trop as above (9) Hypothyroidism: Plan: Continue levothyroxine 25 mcg daily TSH WNL (10) Diabetes type 1, uncontrolled: Plan: As above Now back on lantus/log regimen Pharmacy consulted for assistance in glycemic management A1c above goal at 8.8%, will need endocrine f/u upon d/c (11) Nocturnal hypoxemia: Plan: Utilize CPAP at HS Pt and admit to daytime drowsiness, may need settings adjusted (12) Factor V Leiden mutation: Plan: On Coumadin with therapeutic INR, continue current dose (13) Dyslipidemia: Plan: Continue statin therapy (14) BPH (benign prostatic hyperplasia): Plan: Continue Proscar and Cardura Plan: Interventions as outlined above. PT/OT eval. F/U labs in AM. D/C planning. Updated patient's at bedside. Admission and Anticipated Discharge Date Admission Date: July 13, 2021 Subjective Patient seen on rounds this morning. He was hospitalized yesterday d/t altered mental status which was suspected to be secondary to DKA. Pt is a known T1DM, last a1c 8.8%. He is unable to give an accurate account of events leading up to hospitalization. This morning, he has no complaints. Reports feeling "better." He is oriented x3. Denies cp, dyspnea, n/v/d, f/c, headache, or gu symptoms. Review of Systems Review of Systems: All systems reviewed and are unremarkable except as noted in HPI and below Denies fevers, chills, headache, nasal congestion, sore throat, cough, chest pain, shortness of breath, palpitations, orthopnea, PND, abdominal pain, nausea, vomiting, constipation, dysuria, hematuria, frequency, back pain, joint pain or swelling, easy bruising or bleeding, skin lesions or rashes. Physical Exam Physical Exam: GENERAL: 80 yo well-developed, well-nourished elderly WM. NAD. LUNGS: Clear to auscultation bilaterally. No accessory muscle use. No W/R/R. CARDIOVASCULAR: Regular rate and rhythm. No M/G/R. No JVD. ABDOMEN: Soft, non-tender and non-distended. BS normal x 4 quad. EXTREMITIES: No edema. Non-tender. Peripheral pulses +2/4. chronic venous stasis changes b/l LE. NEUROLOGIC: A&O x3. PSYCHIATRIC: Cooperative. Appropriate mood and affect. SKIN: Warm, dry, intact. Results & Data Results & Data ([facility]) Vital Signs (Past 12 Hours) Vital Signs Temp Pulse Pulse Resp BP Pulse Ox 07/14/21 10:35 36.7 C 78 16 136/64 97 07/14/21 07:59 61 07/14/21 07:29 36.7 C 65 18 151/65 H 99 07/14/21 04:35 36.6 C 70 16 145/58 H 98 07/14/21 03:15 60 16 98 Laboratory Results 07/14/21 06:03 07/14/21 06:03 Diagnostic Findings Echocardiogram: 07/14/21 1. Normal left ventricular size and systolic function. EF 60-65%. No regional wall motion abnormalities. Moderate concentric LVH. 2. Sclerotic aortic valve without significant stenosis. 3. Mild mitral regurgitation. 4. Top-normal estimated RVSP @ 36 mmHg 5. 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 transplanted heart: circle heart Hypothyroidism E03.9 Metabolic encephalopathy G93.41 Non-ST elevation (NSTEMI) myocardial infarction I21.4 Fever R50.9 Fever type: unspecified Diabetes type 1, uncontrolled E10.65 Nocturnal hypoxemia G47.34 Factor V Leiden mutation D68.51 Dyslipidemia E78.5 BPH (benign prostatic hyperplasia) N40.0 (1) Fever Fever type: unspecified Qualified Code(s): R50.9 - Fever, unspecified (2) CAD (coronary artery disease) Associated angina: without angina Coronary Disease-Associated Artery/Lesion type: circle artery [place] vs. transplanted heart: circle heart Qualified Code(s): I25.10 - Atherosclerotic heart disease of circle coronary artery without angina pectoris (3) Hypertension Hypertension type: unspecified Qualified Code(s): I10 - Essential (primary) hypertension
[2021-07-14] MEDS: WARFARIN SOD 5 MG TAB PO SCH (16:31)
[2021-07-14 18:36] LABS: Adenovirus PCR Not Detected (NotDetected); Bordetella parapertussis PCR Not Detected (NotDetected); Bordetella pertussis PCR Not Detected (NotDetected); Chlamydia pneumoniae PCR Not Detected (NotDetected); Coronavirus 229E PCR Not Detected (NotDetected); Coronavirus CoV-2 (COVID19)PCR Not Detected (NotDetected); Coronavirus HKU1 PCR Not Detected (NotDetected); Coronavirus NL63 PCR Not Detected (NotDetected); Coronavirus OC43PCR Not Detected (NotDetected); Human Metapneumovirus PCR Not Detected (NotDetected); Influenza A PCR Not Detected (NotDetected); Influenza B PCR Not Detected (NotDetected); Mycoplasma pneumoniae PCR Not Detected (NotDetected); Parainfluenza Virus 1 PCR Not Detected (NotDetected); Parainfluenza Virus 2 PCR Not Detected (NotDetected); Parainfluenza Virus 3 PCR Not Detected (NotDetected); Parainfluenza Virus 4 PCR Not Detected (NotDetected); Respiratory Syncytial VirusPCR Not Detected (NotDetected); Rhinovirus/Enterovirus PCR Not Detected (NotDetected)
[2021-07-14] MEDS ORDERED: INSULIN GLARGINE SOLOSTAR 100 UNITS/ML 3 ML PEN SC SCH (21:00)
[2021-07-14] MEDS: ATORVASTATIN 40 MG TAB PO SCH (21:25)
[2021-07-14] MEDS: DOCUSATE SODIUM 100 MG CAP PO SCH (21:26)
[2021-07-15] MEDS ORDERED: INSULIN ASPART PER UNIT SC SCH ×2 (02:00→16:30)
[2021-07-15] MEDS: LEVOTHYROXINE SODIUM 25 MCG TABLET PO SCH (05:39)
--- NOTE | 2021-07-15 06:16 | Electrocardiogram Report ---
Test Reason : Blood Pressure : / mmHG Vent. Rate : 066 BPM Atrial Rate : 066 BPM P-R Int : 254 ms QRS Dur : 098 ms QT Int : 486 ms P-R-T Axes : 020 -09 022 degrees QTc Int : 509 ms Sinus rhythm with 1st degree A-V block Prolonged QT Abnormal ECG When compared with ECG of 13-JUL-2021 08:51, Criteria for Anteroseptal infarct are no longer Present T wave inversion no longer evident in Lateral leads QT has lengthened Confirmed by Alberto Castillo ([id number]) on 07/15/2021 6:15:41 AM Referred By: REFERRED SELF Confirmed By:Alberto Castillo
[2021-07-15 07:23] LABS: Basophils # (auto) 0.02 K/uL (0-0.2); Basophils % (auto) 0.4 %; Eosinophils % (auto) 3.6 %; Hematocrit (blood only) 43.2 % (42-52); Hemoglobin 14.9 g/dL (14.0-18.0); Immature Granulocytes # (auto) 0.01 K/uL (0.00-0.02); Immature Granulocytes % (auto) 0.2 %; Lymphocytes # (auto) 1.51 K/uL (1.2-3.4); Lymphocytes % (auto) 27.4 %; Mean Corpuscular Hemoglobin 34.8 pg (25-34); Mean Corpuscular Hgb Conc 34.5 g/dL (32-36); Mean Corpuscular Volume 100.9 fL (80-100); Mean Platelet Volume 10.6 fL (7.4-10.4); Monocytes # (auto) 0.62 K/uL (0.11-0.59); Monocytes % (auto) 11.2 %; Neutrophils # (auto) 3.16 K/uL (1.4-6.5); Neutrophils % (auto) 57.2 %; Platelet Count 120 K/uL (130-400); RDW Coefficient of Variation 12.8 % (11.5-14.5); RDW Standard Deviation 47.2 fL (36.4-46.3); Red Blood Count 4.28 M/uL (4.7-6.1); White Blood Count 5.52 K/uL (4.8-10.8)
[2021-07-15 07:52] LABS: BUN Creatinine Ratio 20.2 (10-20); Calcium 8.5 mg/dl (8.5-10.1); Creatinine Clr Calc Pharmacy 56.7 ml/min; Est GFR (Non-African American) 60.4 ml/min
[2021-07-15] MEDS: FOLIC ACID 1 MG TAB PO SCH (08:16)
[2021-07-15] MEDS: LOSARTAN POTASSIUM 50 MG TAB PO SCH (08:16)
[2021-07-15] MEDS: METOPROLOL TARTRATE 50 MG TAB PO SCH (08:16)
[2021-07-15] MEDS: ISOSORBIDE MONO EXTENDED REL 30 MG TABCR PO SCH (08:16)
[2021-07-15] MEDS: FINASTERIDE 5 MG TAB PO SCH (08:16)
[2021-07-15] MEDS: DOXAZosin MESYLATE 4 MG TAB PO SCH (08:16)
[2021-07-15] MEDS: CHOLECALCIFEROL 1,000 UNITS 25 MCG TAB PO SCH (08:17)
[2021-07-15] MEDS: ASPIRIN 81 MG ECTAB PO SCH (08:17)
[2021-07-15] MEDS: INSULIN ASPART PER UNIT SC SCH ×2 (08:30→11:46)
--- NOTE | 2021-07-15 11:26 | Discharge Summary ---
Date of Service July 15, 2021 Admission HPI Per Admitting Provider This is an 80-year-old male who presented to the [facility] emergency department with his secondary to confusion. Should be noted that the patient was confused to time, placealert only to person and therefore could not provide any meaningful information regarding his history of present illness. The HPI and historical information was obtained from discussion with the treating emergency room staff, review of records, and discussion with patient's who is at the bedside. This patient is a insulin-dependent diabetic. According to the patient's he takes his own insulin and takes his own medications and checks his own blood sugars. She believes that he has been taking his medications as prescribed but could not verify or ascertain this. She does note that over the past week he has seemed more confused. She did not initially seek medical attention for the patient's confusion but when she went into his bedroom this morning she noted that he was sleeping upside down in the bedroom and appeared somewhat disheveled. She said that the patient said that he felt cold and did not offer any other specific complaints. Because of his ongoing confusion she brought him to the emergency department today. When I visited with the patient in the emergency department I did attempt to question him on numerous symptoms. To the best of their knowledge she has not had any falls or head injuries. He denies any visual changes or visual loss. He denies any sore throat. Patient's does note that he does have shortness of breath as well as cough. She feels as though his cough is secondary to when he eats that he has had some difficulty swallowing and feels that this has been an ongoing problem. The patient specifically denies any chest pain. He has not had any nausea vomiting and he denies any abdominal pain. The patient denies any dysuria and his does not report that he wears adult diapers as he is incontinent. She also notes that he has had a sore on his right great toe that has been treated by podiatry. To the best of her knowledge when he was at home there have been no fevers. In addition she reports that both herself and her are fully vaccinated against COVID-19, having received her booster shots in June of this year. It is also no over the mention that the patient's reports he is an alcoholic. She could not quantify the exact amount he drinks each day but notes that he does drink frequently each day and his most recent alcoholic beverage was last evening. Today in the emergency department the patient was noted to be hypertensive with a blood pressure of 202/103. He was also noted to be febrile with a temperature 38.5. He did have labs and imaging which I independently reviewed. CBC revealed white blood cell count was 8.7. His hemoglobin, hematocrit, and platelet count were all within normal range. His INR is noted to be 2.1. Chemistry profile showed sodium was 133 with a potassium of 4.9. BUN and creat inine were 31.5. This level of creatinine was not far off the patient's baseline which usually runs around 1.3. There is no significant elevation of LFTs. Urinalysis was not indicative of infection. A Covid test was negative. Lactic acid level is elevated at 2.2. The patient's glucose was noted to be elevated at 420. 9 gap was elevated at 13. Cardiac enzymes were checked and were noted to be nonelevated. Imaging included a CT scan abdomen and pelvis that showed some mild bilateral perinephric stranding. There is no convincing evidence for pyelonephritis. Chest x-ray showed no evidence of infiltrate or pneumonia. A CT scan showed no evidence of acute stroke or fracture. An EKG was performed that showed sinus rhythm. There is concern for possible ST depression in leads V4 through V6. At the time of my interview the patient was resting comfortably in bed. He was in no distress. Thus far in the emergency department the patient has received empiric Rocephin. Principal Diagnosis 1. DKA 2. Metabolic encephalopathy d/t #1 Discharge Exam GENERAL: 80 yo well-developed, well-nourished elderly WM. NAD. LUNGS: Clear to auscultation bilaterally. No accessory muscle use. No W/R/R. CARDIOVASCULAR: Regular rate and rhythm. No M/G/R. No JVD. ABDOMEN: Soft, non-tender and non-distended. BS normal x 4 quad. EXTREMITIES: No edema. Non-tender. Peripheral pulses +2/4. chronic venous stasis changes b/l LE. NEUROLOGIC: A&O x3. PSYCHIATRIC: Cooperative. Appropriate mood and affect. SKIN: Warm, dry, intact. Discharge Data Allergies Allergy/AdvReac Type Severity Reaction Status Date / Time clindamycin Allergy Intermediate Rash Verified 06/30/21 13:39 Sulfa (Sulfonamide Allergy Intermediate HIVES Verified 07/13/21 19:00 Antibiotics) lisinopril Allergy Unknown Unknown Verified 07/13/21 19:00 Penicillins Allergy Unknown Unknown Verified 06/30/21 13:39 Consultations Cardiology has been consulted d/t elevated troponin -- seen by Dr. Castillo, recommended conservative management Ordered Studies Abdomen/Pelvis CT 07/13/21 08:51 CT abd pelvis wo con CLINICAL HISTORY: UTI . Abdominal pain COMPARISON STUDY: No previous studies for comparison. CT DOSE: TECHNIQUE: Standard CT of the Abdomen and Pelvis was performed without IV contrast. The patient did not receive oral contrast. A dose lowering technique was utilized adhering to the principles of ALARA. FINDINGS: Lung base: The lung bases are clear. There is minimal dependent atelectasis at the lung bases. The heart is enlarged with extensive coronary artery calcification. Abdominal cavity: There is no evidence for abdominal mass, adenopathy or ascites. Liver: The liver is homogeneous in attenuation on these limited noncontrast images..Sharply defined hepatic cyst is present. Spleen: The spleen is homogeneous in attenuation on these limited noncontrast images. Pancreas: The pancreas is homogeneous in attenuation on these limited noncontrast images. Gall Bladder: The gallbladder is well distended with no evidence for cholelithiasis, wall thickening or pericholecystic edema.. Adrenal glands: The adrenal glands are normal in size and attenuation on these limited noncontrast images. Kidneys: The kidneys are homogeneous in attenuation on these limited noncontrast images. There is no evidence for gross renal mass, calculus or hydronephrosis bilaterally. There is bilateral perinephric stranding present. However, the presence of acute pyelonephritis cannot be evaluated due to lack of intravenous contrast. Bowel: There is a small to moderate size hiatal hernia. The bowel loops are normally placed within the abdomen and pelvis without evidence for dilatation or obstruction. There is no evidence for mass lesion. There is mild fecal stasis without impaction. There are no inflammatory changes present. There is no evidence for free air. The appendix is not visualized. Bladder: There is no evidence for focal bladder wall thickening, calculus or diverticulum. There is diffuse thickening of the bladder wall characteristic of chronic bladder outlet obstruction. : There is no evidence for pelvic mass or adenopathy. The prostate is moderately enlarged. Vasculature: There is no evidence for focal aneurysmal dilatation of the abdominal aorta. Extensive atherosclerotic calcification is present. Osseous structures: There is no acute osseous pathology. Prominent degenerative changes are seen throughout the lumbar spine and within both hips. IMPRESSION: 1. Mild bilateral perinephric stranding with no definite evidence for pyelonephritis on this limited noncontrast study. 2. Otherwise, no acute intra-abdominal or pelvic abnormality on these limited noncontrast images. 3. Mild fecal stasis without impaction or obstruction. 4. Small to moderate size hiatal hernia. 5. Additional nonacute findings are delineated above. ACT 112: Negative or not required by law. Electronically signed by: Pedro Thayer M.D. 07/13/2021 9:41 AM Chest X-Ray 07/13/21 08:51 XR chest 1V portable CLINICAL HISTORY: SEPSIS. Evaluate cardiopulmonary status COMPARISON STUDY: 07/18/2018 TECHNIQUE: 1 view of the chest FINDINGS: Single frontal view of the chest demonstrates the cardiomediastinal silhouette to be within normal limits. There is a decreased inspiratory effort with elevation of the hemidiaphragms and crowding of the bronchovascular markings at the lung bases and centrally. There is minimal right basilar atelectasis. The lungs are clear of alveolar opacities. There is no evidence for pleural effusion. There is no evidence for vascular congestion. There is no acute osseous pathology. IMPRESSION: There is a decreased inspiratory effort with minimal bibasilar atelectasis. Otherwise no acute chest disease. ACT 112: Negative or not required by law. Electronically signed by: Pedro Thayer M.D. 07/13/2021 9:[address] 07/13/21 08:51 CT head/brain wo con CLINICAL HISTORY: AMS COMPARISON STUDY: 07/20/2019 CT DOSE: 1988.41 mGy.cm TECHNIQUE: Standard CT of the Brain was performed without IV contrast. A dose lowering technique was utilized adhering to the principles of ALARA. FINDINGS: Extraaxial space: There is no evidence for subdural hematoma. There are no extra-axial fluid collections. Ventricles and cisterns: The ventricles are mildly dilated bilaterally. There is no evidence for midline shift or mass effect. Parenchyma: There is no subarachnoid or intraparenchymal hemorrhage. There is no evidence for an acute infarct or cerebral edema. There is mild cerebral cortical atrophy and decreased attenuation in the periventricular white matter representing remote small vessel disease. There are no gross mass lesions. Osseous structures: There is no evidence for an acute fracture. The visualized paranasal sinuses are clear. The mastoid air cells are clear bilaterally. Soft tissues: There is no evidence for focal soft tissue swelling. IMPRESSION: No acute intracerebral pathology. ACT 112: Negative or not required by law. Electronically signed by: Pedro Thayer M.D. 07/13/2021 9:45 AM Brain MRI 07/13/21 11:13 MR brain wo/w con CLINICAL HISTORY: AMS, ? CVA. COMPARISON STUDY: 07/20/[address] brain from 07/13/2021 TECHNIQUE: Multiplanar multisequence images of the brain were performed before and after Gadavist, 8 mL of IV contrast. Diffusion weighted imaging and ADC mapping was also performed. FINDINGS: Extra-axial space: There is no evidence for a subdural hematoma, There are no extra-axial fluid collections. Ventricles and cisterns: The ventricles are mildly dilated bilaterally. There is no evidence for midline shift or mass effect. Parenchyma: On noncontrast images, there is no evidence for an acute hemorrhage or infarct. No acute diffusion abnormalities are noted on diffusion weighted imaging or ADC mapping. There is normal sutton-white differentiation. There is mild cerebral cortical atrophy present. The sulci and gyri appear normal without effacement. The midline structures are unremarkable. The posterior fossa structures appear normal. On postcontrast images, there is no evidence for enhancing mass lesion. Osseous structures: The paranasal sinuses are well aerated. There is mild mucosal thickening involving the mastoid air cells on the right when compared to the left. Soft tissues: No focal soft tissue abnormalities are identified. IMPRESSION: No acute intracranial abnormalities. 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 ACT 112: Negative or not required by law. Electronically signed by: Pedro Thayer M.D. 07/13/2021 2:06 PM Echocardiogram: 07/14/21 1. Normal left ventricular size and systolic function. EF 60-65%. No regional wall motion abnormalities. Moderate concentric LVH. 2. Sclerotic aortic valve without significant stenosis. 3. Mild mitral regurgitation. 4. Top-normal estimated RVSP @ 36 mmHg 5. No significant change from prior study on 07/21/19 Hospital Course (1) Metabolic encephalopathy: In setting of acute DKA, dehydration, and fever (only one true fever do cumented since admission); RESOLVED Admitted to telemetry, empirically started on Rocephin 2g IV daily, uncertain as to what is actually being treated, UA unremarkable and blood cultures thus far negative for growth MRI ordered and completed, no acute stroke DKA was treated with aggressive IVF hydration and IV insulin gtt which has since been converted back to lantus/log Pharmacy consulted for glycemic management, appreciate assistance His AMS has cleared today, he is mentating at baseline per (2) Diabetic ketoacidosis: As above, presented with hyperglycemia with slightly open gap Treated with IV insulin gtt and aggressive hydration Gap now closed, DKA now resolved, back on lantus/log regimen (3) Non-ST elevation (NSTEMI) myocardial infarction: Had abnormal EKG on admission, minimal ST depression in lateral leads Initial trop negative, but f/u trop elevated at 5.13 and 3rd trop 4.20 Echocardiogram ordered to update, results as above, EF preserved, no WM abnormalities Cardiology consulted, d/w Dr. Castillo who is known to patient, recommends conservative management at this time, appreciate input ?demand ischemia d/t fever and hypertensive urgency (4) Fever: Etiology?? Could be viral Blood cultures thus far no growth UA unremarkable CXR no evidence of PNA BioFire ordered as well as Lyme IgM w/ reflex WB, both negative No leukocytosis, but did have subtle left shift on differential ordered in ED No further fevers, subsequently will discontinue Rocephin. No convincing evidence of acute infection (5) Hypertension: BP elevated 200/100s on admission which has since normalized Continue home medication as prescribed pre-hospital Blood pressure has been well controlled since admission on current regimen (6) Alcohol abuse: Alcohol abuse could be cause of patient's altered mental status We will monitor for symptoms of alcohol withdrawal We will place the patient on as needed ativan if alcohol withdrawal symptoms ensue We will place the patient on thiamine, multivitamin, and folic acid Vitamin B12 and folate level ordered d/t macrocytosis, B12 deficient, see below (7) Kidney disease, chronic, stage II (mild, 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): Nephrotoxins will be avoided Renal fxn now at baseline (8) CAD (coronary artery disease): We will maintain the patient on his home regimen of cardiac medications: Aspirin 81 mg daily Lipitor 40 mg daily Isosorbide 30 mg daily Losartan 25 mg daily Metoprolol 50 mg twice daily Abnormal EKG and +trop as above (9) Hypothyroidism: Continue levothyroxine 25 mcg daily TSH WNL (10) Diabetes type 1, uncontrolled: As above Now back on lantus/log regimen Pharmacy consulted for assistance in glycemic management A1c above goal at 8.8%, will need endocrine f/u upon d/c--appt scheduled 08/04 (11) Nocturnal hypoxemia: Utilize CPAP at HS Pt and admit to daytime drowsiness, may need settings adjusted is to contact ordering physician in order to determine if any settings may need adjusted, may need updated sleep study (12) Factor V Leiden mutation: On Coumadin with therapeutic INR, continue current dose (13) Dyslipidemia: Continue statin therapy (14) BPH (benign prostatic hyperplasia): Continue Proscar and Cardura (15) Vitamin B 12 deficiency: Ordered a dose of cyanocobalamin 1000 mcg IM x1 prior to discharge d/t B12 level of 328 Discharge home with daily supplementation of 2000 mcg orally daily Recommend follow-up B12 level in 3 months which can be done as an outpatient ordered by his PCP PT/OT eval. Anticipate recommendation for home therapy services. Case management to make those referrals after evaluation is completed. He has been advised to follow-up with endocrine on 08/04/21 as scheduled. Recommend follow- up with primary care physician within 1 week of discharge. Above plan of care has been discussed with Dr. Castellanos who is also seen and evaluated this patient prior to discharge. Total Time Total Time Spent Total Time Spent (In Minutes): >30 minutes Discharge Plan Discharge Items Patient Disposition: Home - Home Health Services Reason For Visit: AMS, DKA Discharge Diagnosis: Diabetic ketoacidosis causing confusion Activity: Resume your previous activity Non-emergency contact: Primary Care Provider Call non-emergency contact if: you have any medication questions and your symptoms worsen Follow-up/Referrals: Sheng Sherman MD [Primary Care Provider] - Diet: Carb Count or DM1 and Heart Healthy Addtl Attending Provider Instructions: You were hospitalized with a condition called diabetic ketoacidosis. This is a complication of your type 1 diabetes mellitus. It occurs when the body begins breaking down fat at a rate that is too fast and liver processes the fat into ketones. A buildup of ketones in your bloodstream is what causes your blood to be acidic. As a result, you can have confusion or altered mental status, other times it will include symptoms of nausea, vomiting, abdominal pain and sometimes even a loss of consciousness. This condition can be life-threatening if not promptly treated. In order to treat this, you were given intravenous insulin at a slow and steady rate to correct your elevated blood sugar. You were also given large amounts of IV fluids to hydrate you. The condition has now been corrected and you have been returned to your insulin regimen of Lantus and analog with meals. It is vital to be compliant with your diet, exercise as able, and monitor your blood sugars closely. We would strongly recommend that you follow up with your digital associate as soon as you are able to get an appointment. Ideally, within the next week. In addition, while you were in the hospital, you had a rise in one of your heart enzymes called troponin. This can sometimes become elevated due to an oxygen supply-demand mismatch when your body is under stress. Due to the elevated troponin, we asked your heart doctor, Dr. Castillo, to see you while you were here. We also updated an echocardiogram. Your echo looked stable from the last one done in July 2019. Dr. Castillo will see you as an outpatient in the office and would like you to continue your current medications without change. As it was observed that you had some unsteady gait when walking to the bathroom with nursing, it is recommended that you have home therapy services to increase your strength and steadiness to reduce falls. This will be arranged by our case management department prior to your discharge. Pending Studies at Discharge: No Stand-Alone Forms: My [facility], Smoking Cessation Medications and DC Order Prescriptions: New cyanocobalamin (vitamin B-12) 1,000 mcg capsule 1,000 mcg PO DAILY Qty: 30 RF: 0 Continued multivitamin Tablet 1 tab PO QDL Qty: 0 RF: 0 docusate sodium 100 mg Capsule 300 mg PO HS Qty: 0 RF: 0 magnesium 250 mg Tablet 250 mg PO QDL Qty: 0 RF: 0 Glucagon (HCl) Emergency Kit 1 mg recon soln 1 mg subcut Q20M PRN (Reason: hypoglycemia) Qty: 1 RF: 1 Baqsimi 3 mg/actuation spray,non-aerosol 3 mg intranasal ONCE Qty: 2 RF: 5 insulin lispro [Humalog U-100 Insulin] 100 unit/mL solution 40 unit SQ .COMPLEX Qty: 20 RF: 11 isosorbide mononitrate 30 mg tablet extended release 24 hr 30 mg PO QAM Qty: 30 RF: 11 doxazosin 4 mg tablet 4 mg PO QAM Qty: 90 RF: 3 folic acid 1 mg tablet See Rx Instructions .ROUTE .COMPLEX Qty: 90 RF: 3 nitroglycerin [Nitrostat] 0.4 mg tablet, sublingual 0.4 mg sublingual UD PRN (Reason: Chest Pain) Qty: 25 RF: 3 Lantus U-100 Insulin 100 unit/mL solution See Rx Instructions SQ DAILY 90 Days Qty: 10 RF: 5 losartan 25 mg tablet 50 mg PO DAILY Qty: 180 RF: 3 levothyroxine 25 mcg tablet 25 mcg PO QAM Qty: 30 RF: 5 aspirin 81 mg tablet,delayed release (DR/EC) 81 mg PO QAM RF: 0 cholecalciferol (vitamin D3) 50 mcg (2,000 unit) capsule 50 mcg PO DAILY RF: 0 lutein 20 mg capsule 20 mg PO QDL RF: 0 thiamine HCl (vitamin B1) 100 mg tablet 100 mg PO QDL RF: 0 fluticasone propionate 50 mcg/actuation spray,suspension 2 sprays INTNAS DAILY PRN (Reason: Nasal Congestion) RF: 0 finasteride 5 mg tablet 5 mg PO DAILY Qty: 90 RF: 3 metoprolol tartrate 50 mg tablet 50 mg PO BID Qty: 180 RF: 3 warfarin 5 mg tablet 5 mg PO DAILY@1500 Qty: 90 RF: 3 atorvastatin 40 mg tablet 40 mg PO HS Qty: 90 RF: 3 Discharge Orders: Discharge Order (Routine); Ordered 07/15/21 Ordered By: Maria Henriquez/Other Patient Handouts: Diabetic Ketoacidosis Admission Data Admit Date/Time: 07/13/21 11:04 Attending Provider: Andrew Castellanos Admit Provider: Sylvain Cho Primary Care Provider: Sheng Sherman Other Providers: Sylvain Cho ; Alberto Castillo Coding Level of Care Code D/C DAY MANAGEMENT >30 MINS Diagnoses Metabolic encephalopathy G93.41 Diabetic ketoacidosis E11.10 Non-ST elevation (NSTEMI) myocardial infarction I21.4 Fever R50.9 Fever type: unspecified Hypertension I10 Hypertension type: unspecified Alcohol abuse F10.10 Kidney disease, chronic, stage II (mild, 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 vs. transplanted heart: [place] heart Hypothyroidism E03.9 Diabetes type 1, uncontrolled E10.65 Nocturnal hypoxemia G47.34 Factor V Leiden mutation D68.51 Dyslipidemia E78.5 BPH (benign prostatic hyperplasia) N40.0 Vitamin B 12 deficiency E53.8 Home Health Attestation I certify that this patient is under my care and that I, or a physicians assistant mechanic working with me, had a face to-face encounter that meets the home health [id number] encounter requirements with this patient. The encounter with the patient was in whole, or in part, for the following medical condition, which is the primary reason for home health care (list medical condition): I certify that, based on my findings, the following services are medically necessary home health services: My clinical findings support the need for the above services because: Further, I certify that my clinical findings support that this patient is homebound (i.e. absences from home require considerable and taxing effort and are for medical reasons or yazidism services or infrequently or of short duration when for other reasons) because: Certification for Home Health Services: Based on the above findings, I certify that this patient is confined to the home and needs intermittent usp care, physical therapy and/or speech therapy or continues to need occupational therapy. The patient is under my care, and I have initiated the establishment of the plan of care. This patient will be followed by a physician who will periodically review the plan of care.
[2021-07-15] MEDS: MAGNESIUM OXIDE 400 MG TAB PO SCH (11:46)
[2021-07-15] MEDS: MULTIVITAMIN TAB PO SCH (11:46)
[2021-07-15] MEDS: THIAMINE HCL 100 MG TAB PO SCH (11:46)
[2021-07-15] MEDS ORDERED: CYANOCOBALAMIN 1000 MCG/ML VIAL IM ONE (11:56)
--- NOTE | 2021-07-15 15:54 | Cardiology Progress Note ---
Date of Service July 15, 2021 Assessment & Plan (1) Non-ST elevation (NSTEMI) myocardial infarction: (2) CAD (coronary artery disease): (3) Hypertension: (4) Dyslipidemia: Plan: ASSESSMENT/PLAN: 1. NSTEMI: No identifiable angina although there was mental status changes on presentation per records. Has known CAD including small vessel OM1 proximal stenosis in 2018.Troponin peaked at 5.13. Normal LV systolic function. Troponin elevation likely due to demand ischemia in the setting of severe hypertension, DKA, and also had fever on presentation. Recommend conservative management. No indication for urgent cardiac catheterization. Has remained asymptomatic in this regard. Already on anticoagulation therapy. Continue aspirin 81 mg daily. Continue beta-kristin, ARB, and high-intensity statin therapy. 2. CAD s/p RCA PCI (2018): No angina. Elevated troponin as above in the setting of severe hypertension and reported DKA. Continue aspirin 81 mg daily indefinitely. Continue high-intensity statin therapy, beta-kristin, ARB. Continue medical therapy. 3. Hypertension: Presentation concerning for hypertensive emergency with elevated troponin and mental status change. Blood pressure reasonably controlled today. Continue home regimen. Blood pressure was well controlled when recently seen in the outpatient setting on 06/30/2021. 4. Alcohol abuse: Would avoid alcohol. He has been counseled. 5. Dyslipidemia: Continue high-intensity statin therapy. 6. Dilated ascending aorta: Surveillance is no longer being performed as patient/family was not interested in pursuing aortic valve repair/replacement if necessary in the future given his other comorbidities. Avoid strenuous lifting for which the Valsalva maneuver is required. Continue beta-kristin therapy. He remains asymptomatic. 7. Edema: Has chronic edema which appears improved today. 8. Anticoagulation therapy: He is on anticoagulation therapy for hypercoagulable state with left lower extremity DVT and extensive pulmonary emboli. 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 [place] [facility]. 9. Confusion: Seems to be a baseline. As per primary service. 10. Disposition:He was seen this morning but at the time of this note, he has already been discharged from the hospitalist service. Continue to follow-up with Cardiology as an outpatient. Admission and Anticipated Discharge Date Admission Date: July 13, 2021 Subjective Patient was seen around noon time today. He had just completed walking with physical therapy. He states that he did not experience any dyspnea or chest discomfort. Overall he felt well and back to baseline. He denies shortness of breath, syncope, near-syncope, palpitations, or bleeding. Review of systems: As above. Physical Exam Physical Exam: Gen.: No acute distress. Alert and oriented. HEENT: Anicteric sclera. Neck: No JVD. Cardiac: Regular, without ectopy. Normal S1-S2. 1/6 early peaking systolic ejection murmur. No rubs or gallops. Pulmonary: Clear to auscultation bilaterally without wheezes, rales, or rhonchi. Abdomen: Soft, nontender, nondistended, with normoactive bowel sounds. No bruits noted. Extremities: 2+ radial pulses bilaterally. 2+ posterior tibialis pulses bilaterally. No significant edema. No cyanosis. Psychiatric: Affect appears appropriate. Results & Data ([facility]) Vital Signs (Past 12 Hours) Vital Signs Temp Pulse Pulse Resp BP BP Pulse Ox 07/15/21 13:50 36.5 C 73 20 131/56 L 98 07/15/21 11:44 36.5 C 73 20 90/57 L 98 07/15/21 07:30 36.8 C 72 20 124/63 95 07/15/21 07:14 58 L Laboratory Results Laboratory Results - last 24 hr 07/14/21 07/14/21 07/14/21 15:36 16:26 20:52 WBC RBC Hgb Hct MCV MCH MCHC RDW Std Deviation RDW Coeff of Mary Plt Count MPV Immature Gran % (Auto) Neut % (Auto) Lymph % (Auto) [place] % (Auto) Eos % (Auto) Baso % (Auto) Neut # (Auto) Lymph # (Auto) [place] # (Auto) Eos # (Auto) Baso # (Auto) Immature Gran # (Auto) Sodium Potassium Chloride Carbon Dioxide Anion Gap BUN Creatinine Est Cr Clr Drug Dosing Est GFR ( Amer) Est GFR (Non-Af Amer) BUN/Creatinine Ratio Glucose POC Glucose 196 H 115 H Calcium Adenovirus (PCR) B. pertussis DNA (PCR) B.parapertussis DNA PCR Lyme Disease IgM Ab Negative C. pneumoniae DNA (PCR) Coronavirus OC43 (PCR) Coronavirus HKU1 (PCR) Coronavirus 229E (PCR) SARS-CoV-2 (PCR) Coronavirus NL63 (PCR) Human Metapneumovir PCR Influenza Type A (PCR) Influenza Type B (PCR) M. pneumoniae (PCR) Parainfluenza 1 (PCR) Parainfluenza 2 (PCR) Parainfluenza 3 (PCR) Parainfluenza 4 (PCR) RSV (PCR) Entero/Rhino (PCR) 07/14/21 07/15/21 07/15/21 Unknown 06:52 06:52 WBC 5.52 RBC 4.28 L Hgb 14.9 Hct 43.2 MCV 100.9 H MCH 34.8 H MCHC 34.5 RDW Std Deviation 47.2 H RDW Coeff of Mary 12.8 Plt Count 120 L MPV 10.6 H Immature Gran % (Auto) 0.2 Neut % (Auto) 57.2 Lymph % (Auto) 27.4 [place] % (Auto) 11.2 Eos % (Auto) 3.6 Baso % (Auto) 0.4 Neut # (Auto) 3.16 Lymph # (Auto) 1.51 [place] # (Auto) 0.62 H Eos # (Auto) 0.20 Baso # (Auto) 0.02 Immature Gran # (Auto) 0.01 Sodium 136 Potassium 4.0 Chloride 106 Carbon Dioxide 24 Anion Gap 6 BUN 23 Creatinine 1.14 Est Cr Clr Drug Dosing 56.7 Est GFR ( Amer) 70.0 Est GFR (Non-Af Amer) 60.4 BUN/Creatinine Ratio 20.2 H Glucose 147 H POC Glucose Calcium 8.5 Adenovirus (PCR) Not Detected B. pertussis DNA (PCR) Not Detected B.parapertussis DNA PCR Not Detected Lyme Disease IgM Ab C. pneumoniae DNA (PCR) Not Detected Coronavirus OC43 (PCR) Not Detected Coronavirus HKU1 (PCR) Not Detected Coronavirus 229E (PCR) Not Detected SARS-CoV-2 (PCR) Not Detected Coronavirus NL63 (PCR) Not Detected Human Metapneumovir PCR Not Detected Influenza Type A (PCR) Not Detected Influenza Type B (PCR) Not Detected M. pneumoniae (PCR) Not Detected Parainfluenza 1 (PCR) Not Detected Parainfluenza 2 (PCR) Not Detected Parainfluenza 3 (PCR) Not Detected Parainfluenza 4 (PCR) Not Detected RSV (PCR) Not Detected Entero/Rhino (PCR) Not Detected 07/15/21 07/15/21 07:07 11:01 WBC RBC Hgb Hct MCV MCH MCHC RDW Std Deviation RDW Coeff of Mary Plt Count MPV Immature Gran % (Auto) Neut % (Auto) Lymph % (Auto) [place] % (Auto) Eos % (Auto) Baso % (Auto) Neut # (Auto) Lymph # (Auto) [place] # (Auto) Eos # (Auto) Baso # (Auto) Immature Gran # (Auto) Sodium Potassium Chloride Carbon Dioxide Anion Gap BUN Creatinine Est Cr Clr Drug Dosing Est GFR ( Amer) Est GFR (Non-Af Amer) BUN/Creatinine Ratio Glucose POC Glucose 149 H 275 H Calcium Adenovirus (PCR) B. pertussis DNA (PCR) B.parapertussis DNA PCR Lyme Disease IgM Ab C. pneumoniae DNA (PCR) Coronavirus OC43 (PCR) Coronavirus HKU1 (PCR) Coronavirus 229E (PCR) SARS-CoV-2 (PCR) Coronavirus NL63 (PCR) Human Metapneumovir PCR Influenza Type A (PCR) Influenza Type B (PCR) M. pneumoniae (PCR) Parainfluenza 1 (PCR) Parainfluenza 2 (PCR) Parainfluenza 3 (PCR) Parainfluenza 4 (PCR) RSV (PCR) Entero/Rhino (PCR) Diagnostic Findings Telemetry personally reviewed: Sinus rhythm with occasional PVCs. ECG personally reviewed from 07/15/2021 at 5:47 a.m.: Sinus rhythm 62 beats per minute. Inferior infarct. Medications Administered Discontinued Medications Aspirin (Aspirin 81 Mg Ectab) 81 mg PO QAM [facility] Stop: 08/13/21 08:59 Last Admin: 07/15/21 08:17 Dose: 81 mg Documented by: [id number] Admin: 07/14/21 09:45 Dose: 81 mg Documented by: [id number] Cosigned by: [id number] Atorvastatin Calcium (Atorvastatin 40 Mg Tab) 40 mg PO PENNY Stop: 08/12/21 20:59 Last Admin: 07/14/21 21:25 Dose: 40 mg Documented by: [id number] Admin: 07/13/21 19:54 Dose: 40 mg Documented by: [id number] Cyanocobalamin (Cyanocobalamin 1000 Mcg/Ml Vial) 1,000 mcg IM QAM ONE Stop: 07/15/21 11:57 Last Admin: 07/15/21 14:05 Dose: 1,000 mcg Documented by: [id number] Docusate Sodium (Docusate Sodium 100 Mg Cap) 300 mg PO HS [facility] Stop: 08/12/21 20:59 Last Admin: 07/14/21 21:26 Dose: 300 mg Documented by: [id number] Admin: 07/13/21 19:54 Dose: 300 mg Documented by: [id number] Doxazosin Mesylate (Doxazosin Mesylate 4 Mg Tab) 4 mg PO QAM [facility] Stop: 08/13/21 08:59 Last Admin: 07/15/21 08:16 Dose: 4 mg Documented by: [id number] Admin: 07/14/21 09:45 Dose: 4 mg Documented by: [id number] Cosigned by: [id number] Finasteride (Finasteride 5 Mg Tab) 5 mg PO DAILY P[facility] Stop: 08/13/21 08:59 Last Admin: 07/15/21 08:16 Dose: 5 mg Documented by: [id number] Admin: 07/14/21 09:44 Dose: 5 mg Documented by: [id number] Cosigned by: [id number] Folic Acid (Folic Acid 1 Mg Tab) 1 mg PO DAILY [facility] Stop: 08/12/21 14:44 Last Admin: 07/15/21 08:16 Dose: 1 mg Documented by: [id number] Admin: 07/14/21 09:40 Dose: 1 mg Documented by: [id number] Cosigned by: [id number] Admin: 07/13/21 16:02 Dose: 1 mg Documented by: [id number] Gadobutrol (Gadobutrol 65ml Vial) 9 ml IV ONCE ONE Stop: 07/13/21 13:04 Last Admin: 07/13/21 14:51 Dose: Not Given Documented by: [id number] Gadobutrol (Gadobutrol 10ml Vial) 9 ml IV ONCE ONE Stop: 07/13/21 13:04 Last Admin: 07/13/21 12:43 Dose: 9 ml Documented by: [id number] Ceftriaxone Sodium (Rocephin) 1,000 mg in 50 mls @ 100 mls/hr IV NOW STA Stop: 07/13/21 10:30 Last Infusion: 07/13/21 11:09 Dose: 0 mls/hr Documented by: [id number] Admin: 07/13/21 10:07 Dose: 100 mls/hr Documented by: [id number] Thiamine HCl 500 mg/ Sodium (Chloride) 55 mls @ 220 mls/hr IV ONE ONE Stop: 07/13/21 11:44 Last Infusion: 07/13/21 13:35 Dose: 0 mls/hr Documented by: [id number] Admin: 07/13/21 13:06 Dose: 220 mls/hr Documented by: [id number] Folic Acid 1 mg/ Syringe 10 mls @ 5 mls/min IV ONE ONE Stop: 07/13/21 11:36 Last Admin: 07/13/21 12:14 Dose: 5 mls/min Documented by: [id number] Insulin Human Regular 250 (units/ Sodium Chloride) 250 mls @ 3.2 mls/hr IV .Q24H [facility]; Protocol Stop: 08/12/21 11:44 Last Titration: 07/14/21 01:41 Dose: 0 units/hr, 0 mls/hr Documented by: [id number] Cosigned by: [id number] Titration: 07/13/21 21:51 Dose: 3.2 units/hr, 3.2 mls/hr Documented by: [id number] Cosigned by: [id number] Titration: 07/13/21 20:24 Dose: 4 units/hr, 4 mls/hr Documented by: [id number] Cosigned by: [id number] Titration: 07/13/21 19:48 Dose: 0 units/hr, 0 mls/hr Documented by: [id number] Cosigned by: [id number] Titration: 07/13/21 18:53 Dose: 6.7 units/hr, 6.7 mls/hr Documented by: [id number] Cosigned by: [id number] Titration: 07/13/21 16:45 Dose: 5.6 units/hr, 5.6 mls/hr Documented by: [id number] Cosigned by: [id number] Titration: 07/13/21 16:15 Dose: 0 units/hr, 0 mls/hr Documented by: [id number] Cosigned by: [id number] Titration: 07/13/21 15:18 Dose: 9.3 units/hr, 9.3 mls/hr Documented by: [id number] Cosigned by: [id number] Titration: 07/13/21 14:02 Dose: 9.3 units/hr, 9.3 mls/hr Documented by: [id number] Cosigned by: [id number] Admin: 07/13/21 13:03 Dose: 9.3 units/hr, 9.3 mls/hr Documented by: [id number] Cosigned by: [id number] Sodium Chloride (Nss 1000ml) 1,000 mls @ 125 mls/hr IV .Q8H [facility] Stop: 08/12/21 11:44 Last Infusion: 07/14/21 07:38 Dose: 0 mls/hr Documented by: [id number] Admin: 07/13/21 13:32 Dose: 125 mls/hr Documented by: [id number] Ceftriaxone Sodium 1,000 mg/ (Dextrose) 50 mls @ 100 mls/hr IV ONE ONE; Protocol Stop: 07/13/21 15:29 Last Infusion: 07/13/21 16:37 Dose: 0 mls/hr Documented by: [id number] Admin: 07/13/21 15:56 Dose: 100 mls/hr Documented by: [id number] Ceftriaxone Sodium 2,000 mg/ (Dextrose) 70 mls @ 140 mls/hr IV Q24H [facility]; Protocol Stop: 07/24/21 09:59 Last Infusion: 07/14/21 11:31 Dose: 0 mls/hr Documented by: [id number] Admin: 07/14/21 10:52 Dose: 140 mls/hr Documented by: [id number] Potassium Chloride/Sodium Chloride (1/2 Nss + 20meq Kcl 1000ml) 20 meq in 1,000 mls @ 125 mls/hr IV .Q8H [facility] Stop: 08/12/21 15:29 Last Admin: 07/13/21 16:43 Dose: Not Given Documented by: [id number] Potassium Chloride/Sodium Chloride (Normal Saline W/20 Meq Kcl) 20 meq in 1,000 mls @ 125 mls/hr IV .Q8H [facility]; Protocol Stop: 08/12/21 15:44 Last Infusion: 07/13/21 21:30 Dose: 0 mls/hr Documented by: [id number] Admin: 07/13/21 16:39 Dose: 125 mls/hr Documented by: [id number] Insulin Aspart (Insulin Aspart Per Unit) 0 units SC ACHS [facility] Stop: 08/12/21 16:29 Last Admin: 07/13/21 19:47 Dose: Not Given Documented by: [id number] Admin: 07/13/21 17:01 Dose: 8 units Documented by: [id number] Cosigned by: [id number] Insulin Aspart (Insulin Aspart Per Unit) 0 units SC [facility] Stop: 08/13/21 03:59 Last Admin: 07/15/21 11:46 Dose: 11 units Documented by: [id number] Cosigned by: [id number] Admin: 07/15/21 08:30 Dose: 3 units Documented by: [id number] Cosigned by: [id number] Admin: 07/14/21 21:26 Dose: Not Given Documented by: [id number] Admin: 07/14/21 16:32 Dose: 11 units Documented by: [id number] Cosigned by: [id number] Admin: 07/14/21 12:00 Dose: 14 units Documented by: [id number] Cosigned by: [id number] Admin: 07/14/21 09:19 Dose: 10 units Documented by: [id number] Cosigned by: [id number] Admin: 07/14/21 03:36 Dose: 2 units Documented by: [id number] Cosigned by: [id number] Insulin Glargine (Insulin Glargine Solostar 100 Units/Ml 3 Ml Pen) 20 units SC [facility]; Protocol Stop: 08/12/21 20:59 Last Admin: 07/13/21 21:06 Dose: 20 units Documented by: [id number] Cosigned by: [id number] Insulin Glargine (Insulin Glargine Solostar 100 Units/Ml 3 Ml Pen) 0 units SC [facility]; Protocol Stop: 08/13/21 20:59 Last Admin: 07/14/21 21:24 Dose: 20 units Documented by: [id number] Cosigned by: [id number] Insulin Human Regular (Novolin-R Insulin Per Unit Charge) 6 units IV NOW STA Stop: 07/13/21 10:06 Last Admin: 07/13/21 10:08 Dose: 6 units Documented by: [id number] Cosigned by: [id number] Insulin Human Regular (Novolin-R Bolus From Bag) 3 units IV ONE ONE Stop: 07/13/21 11:46 Last Admin: 07/13/21 13:04 Dose: 3 units Documented by: [id number] Cosigned by: [id number] Isosorbide Mononitrate (Isosorbide [place] Extended Rel 30 Mg Tabcr) 30 mg PO QAM [facility] Stop: 08/13/21 08:59 Last Admin: 07/15/21 08:16 Dose: 30 mg Documented by: [id number] Admin: 07/14/21 09:43 Dose: 30 mg Documented by: [id number] Cosigned by: [id number] Labetalol HCl (Labetalol Hcl Iv 5 Mg/Ml 20ml) 10 mg IV NOW STA Stop: 07/13/21 10:02 Last Admin: 07/13/21 10:07 Dose: 10 mg Documented by: [id number] Cosigned by: [id number] Levothyroxine Sodium (Levothyroxine Sodium 25 Mcg Tablet) 25 mcg PO DAILYBB [facility] Stop: 08/13/21 06:29 Last Admin: 07/15/21 05:39 Dose: 25 mcg Documented by: [id number] Admin: 07/14/21 06:10 Dose: 25 mcg Documented by: [id number] Losartan Potassium (Losartan Potassium 50 Mg Tab) 50 mg PO DAILY [facility] Stop: 08/13/21 08:59 Last Admin: 07/15/21 08:16 Dose: 50 mg Documented by: [id number] Admin: 07/14/21 09:42 Dose: 50 mg Documented by: [id number] Cosigned by: [id number] Magnesium Oxide (Magnesium Oxide 400 Mg Tab) 400 mg PO QDL [facility] Stop: 08/13/21 11:29 Last Admin: 07/15/21 11:46 Dose: 400 mg Documented by: [id number] Admin: 07/14/21 11:44 Dose: 400 mg Documented by: [id number] Metoprolol Tartrate (Metoprolol Tartrate 50 Mg Tab) 50 mg PO BID [facility] Stop: 08/12/21 20:59 Last Admin: 07/15/21 08:16 Dose: 50 mg Documented by: [id number] Admin: 07/14/21 21:25 Dose: 50 mg Documented by: [id number] Admin: 07/14/21 10:18 Dose: 50 mg Documented by: [id number] Cosigned by: [id number] Admin: 07/13/21 19:54 Dose: 50 mg Documented by: [id number] Miscellaneous (Stat Iv Infusion Titration Per Protocol) 1 ea N/A NOW STA Stop: 07/13/21 11:11 Last Admin: 07/13/21 13:06 Dose: Not Given Documented by: [id number] Miscellaneous (Stat Iv Infusion Titration Per Protocol) 1 ea N/A NOW STA Stop: 07/13/21 11:11 Last Admin: 07/13/21 13:06 Dose: Not Given Documented by: [id number] Arlet (Dka Goal Range 150-250 Mg/Dl) 1 ea N/A ONE ONE Stop: 07/13/21 11:37 Last Admin: 07/13/21 13:06 Dose: 1 ea Documented by: [id number] Geraldinecellaneous (Pending 1/2nss+20meq Kcl Ivf) 1 ea N/A Q2H [facility] Stop: 08/12/21 11:59 Last Admin: 07/13/21 16:42 Dose: Not Given Documented by: [id number] Admin: 07/13/21 14:51 Dose: Not Given Documented by: [id number] Arlet (Pending D5 1/2ns+20meq Kcl Ivf) 1 ea N/A Q2H PENNY Stop: 08/12/21 11:59 Last Admin: 07/13/21 16:42 Dose: Not Given Documented by: [id number] Admin: 07/13/21 14:51 Dose: Not Given Documented by: [id number] Arlet (Pending Order) 1 ea N/A DAILY@1000 [facility] Stop: 08/12/21 20:34 Last Admin: 07/14/21 07:39 Dose: Not Given Documented by: [id number] Multivitamins (Multivitamin Tab) 1 tab PO QDL [facility] Stop: 08/13/21 11:29 Last Admin: 07/15/21 11:46 Dose: 1 tab Documented by: [id number] Admin: 07/14/21 11:44 Dose: 1 tab Documented by: [id number] Thiamine HCl (Thiamine Hcl 100 Mg Tab) 100 mg PO QDL [facility] Stop: 08/12/21 14:44 Last Admin: 07/15/21 11:46 Dose: 100 mg Documented by: [id number] Admin: 07/14/21 11:44 Dose: 100 mg Documented by: [id number] Admin: 07/13/21 16:03 Dose: 100 mg Documented by: [id number] Vitamin D (Cholecalciferol 1,000 Units 25 Mcg Tab) 2,000 units PO DAILY [facility] Stop: 08/13/21 08:59 Last Admin: 07/15/21 08:17 Dose: 2,000 units Documented by: [id number] Admin: 07/14/21 09:42 Dose: 2,000 units Documented by: [id number] Cosigned by: [id number] Warfarin Sodium (Warfarin Sod 5 Mg Tab) 5 mg PO DAILY@1600 [facility] Stop: 08/12/21 15:59 Last Admin: 07/14/21 16:31 Dose: 5 mg Documented by: [id number] Admin: 07/13/21 16:02 Dose: 5 mg Documented by: [id number] PG Care Time/CCT Total # of Minutes Spent Total Time Spent with Patient: Total time spent is greater than 50% in coordination of care (as documented) at patient's floor/unit and/or counseling patient: Coding Level of Care Code 23759 Subseq Hosp Care Lvl 3 Diagnoses Non-ST elevation (NSTEMI) myocardial infarction I21.4 CAD (coronary artery disease) I25.10 Coronary Disease-Associated Artery/Lesion type: [place] artery [place] vs. transplanted heart: [place] heart Associated angina: without angina Hypertension I10 Hypertension type: unspecified Dyslipidemia E78.5 (1) CAD (coronary artery disease) Coronary Disease-Associated Artery/Lesion type: [place] artery [place] vs. transplanted heart: [place] heart Associated angina: without angina Qualified Code(s): I25.10 - Atherosclerotic heart disease of [place] coronary artery without angina pectoris (2) Hypertension Hypertension type: unspecified Qualified Code(s): I10 - Essential (primary) hypertension
--- NOTE | 2021-07-16 06:42 | Electrocardiogram Report ---
Test Reason : Blood Pressure : / mmHG Vent. Rate : 062 BPM Atrial Rate : 062 BPM P-R Int : 200 ms QRS Dur : 092 ms QT Int : 472 ms P-R-T Axes : 028 -16 008 degrees QTc Int : 479 ms Normal sinus rhythm Inferior infarct , age undetermined Cannot rule out Anterior infarct , age undetermined Abnormal ECG When compared with ECG of 14-JUL-2021 00:31, [place] interval has decreased Confirmed by Alberto Castillo ([id number]) on 07/16/2021 6:42:13 AM Referred By: REFERRED SELF Confirmed By:Alberto Castillo
[2021-07-16] MEDS ORDERED: INSULIN ASPART PER UNIT SC SCH (07:30)
== END 2021-07-15 14:49 | disposition home health service (06) | DRG 637 ==
LOC: ED 08:43 → SUATTDRO 11:04 → 2S 11:04

== ENCOUNTER 2021-11-23 00:44 | Observation (INO) ==
[2021-11-23 01:11] LABS: Basophils # (auto) 0.01 K/uL (0-0.2); Basophils % (auto) 0.1 %; Eosinophils # (auto) 0.17 K/uL (0-0.5); Eosinophils % (auto) 2.2 %; Hematocrit (blood only) 42.3 % (42-52); Hemoglobin 15.1 g/dL (14.0-18.0); Immature Granulocytes # (auto) 0.01 K/uL (0.00-0.02); Immature Granulocytes % (auto) 0.1 %; Lymphocytes # (auto) 1.81 K/uL (1.2-3.4); Lymphocytes % (auto) 23.1 %; Mean Corpuscular Hemoglobin 34.2 pg (25-34); Mean Corpuscular Hgb Conc 35.7 g/dL (32-36); Mean Corpuscular Volume 95.7 fL (80-100); Mean Platelet Volume 10.6 fL (7.4-10.4); Monocytes # (auto) 0.53 K/uL (0.11-0.59); Monocytes % (auto) 6.8 %; Neutrophils % (auto) 67.7 %; Platelet Count 168 K/uL (130-400); RDW Coefficient of Variation 12.2 % (11.5-14.5); RDW Standard Deviation 42.4 fL (36.4-46.3); Red Blood Count 4.42 M/uL (4.7-6.1); White Blood Count 7.83 K/uL (4.8-10.8)
--- NOTE | 2021-11-23 01:22 | Emergency Department Note ---
Impression & Plan Stroke-like symptoms, Expressive aphasia Admission to the [facility] ED Provider Note NAME: SHENG NINA AGE: 80 SEX: M ARRIVES VIA: Ambulance INFORMANT: EMS and the patient's ED PROVIDER(S): Amy Gonzales DO CHIEF COMPLAINT: Difficulty with speech PLAN: Disposition: Evaluation by the [facility] group Condition: Stable MEDICAL DECISION MAKING: This is an 80-year-old male patient brought to the emergency department by EMS with speech difficulties. Patient has a history of previous strokes. He has a history of factor V Leiden deficiency and current anticardiolipin antibody. He is on Coumadin. He presents to the emergency department with strokelike symptoms. CT of the brain, CTA of the head and neck were all negative for acute findings. His expressive aphasia has not resolved. EKG was unremarkable. Laboratory studies were for the most part normal. Patient was moderately hypertensive and received a dose of IV labetalol. I discussed the case with the [facility] and they will evaluate for further management. Triage Nursing notes reviewed and agree with them. Additional history obtained from EMS and the patient's when she arrived at the bedside Prior medical records reviewed Vital Signs: reviewed and remarkable for hypertension Differential diagnosis: TIA, CVA, intracranial hemorrhage, expressive aphasia, hypoglycemia ER treatment provided: IV labetalol Diagnostics interpreted by me: ECG: Normal sinus rhythm at a rate of 93 with a first-degree AV block and PVCs. There is ST segment depression in leads I, aVL, V4, V5 and V6 which are all new in comparison to an EKG from 07/15/2021. Cardiac Monitoring: Normal sinus rhythm at a rate of 87. Laboratory studies: See below Imaging studies: As per stat rad CT head: Moderate brain volume loss. Mild chronic ischemic changes. Sinuses, mastoids and the bones are intact. Impression: No acute findings. CTA head: Moderate to severe atherosclerosis of the cavernous carotid arteries. MCAs and ACAs are intact. Mild atherosclerosis of the vertebral arteries. Basilar and cake maker are intact. There is origin of both cake maker. Impression no acute findings CTA neck: Moderate atherosclerosis of the aortic arch. Moderate atherosclerosis of the right carotid bulb and proximal right ICA. No significant stenosis. Moderate atherosclerosis of the left carotid bulb and proximal left ICA without significant stenosis. The vertebral arteries are intact. Upper lung cintron are clear. Soft tissue structures are intact. DJD. Impression no acute findings. HPI: 80/M arrives for evaluation of abnormal speech. The explains that the patient has had worsening gait over the past couple weeks. Tonight, the patient began to have some speech abnormalities after dinner. Initially, the thought it may be from the alcoholic beverage the patient consumed with dinner but then noted that he was unable to form his words correctly. She explains that it seemed as if he knew what he wanted to say but could not say it ROS: See above HPI for pertinent positives & negatives. A total of 10 systems reviewed and were otherwise negative. PAST MEDICAL HISTORY:See Below PAST SURGICAL HISTORY:See Below FAMILY HISTORY:See Below SOCIAL HISTORY:See Below HOME MEDICATIONS:See list ALLERGIES:See list VITALS:See Below PHYSICAL EXAMINATION: HEENT: Head - normocephalic and atraumatic. Pupils are equal, round, and reac tive to light. Extraocular eye muscles are intact and sclera are anicteric. Ears - bilaterally patent canals with noninjected tympanic membranes and no evidence of hemotympanum. Nose - moist nasal mucosa without discharge. Mouth - moist buccal mucosa. Oropharynx is nonerythematous and there is no tonsillar exudate or edema noted. Neck: Supple; no JVD, nuchal rigidity, cervical lymphadenopathy, or auscultated bruits. Heart: Regular rate and rhythm. There is a normal S1 and S2 with no murmurs, clicks, or gallops appreciated. Lungs: Clear to auscultation bilaterally with no wheezes, rales, or rhonchi. Abdomen: Soft, completely nontender, nondistended, with good bowel sounds. There are no palpable pulsatile masses or hepatosplenomegaly. There is no guarding, rigidity, or rebound noted. Extremities: No evidence of cyanosis, clubbing, or edema. There are easily palpable peripheral pulses. Neuro:The patient is awake and alert. He seems to be oriented to place and person. Muscle strength is 5/5 in all 4 extremities. Annual nerves II through XII are intact. The patient has equal fire lookout strength and equal pedal push and pull. There are no cerebellar signs. ED COURSE: Times/Reassessments: 0050: The patient was evaluated in roomA2. A complete history and physical was performed. I discussed the case with EMS at the bedside. An order was placed for continuous cardiac monitoring. The patient was in a normal sinus rhythm at a rate of 87. A twelve-lead EKG was obtained as described above. Patient's arrived at the bedside and I discussed the situation with her. Laboratory studies were drawn as above. An i-STAT was performed. The patient will go for CT brain and CT angiogram of the brain and neck. Upon returning from radiology, the patient had persistent expressive aphasia. I reviewed the results of the laboratory studies and CT/CTA with the patient and his . He remained hypertensive and received a dose of IV labetalol. Amy Gonzales, Past Med/Surg History Medical History Acquired claw toe of both feet Acquired hallux valgus of both feet Anti-cardiolipin antibody positive Anticoagulant long-term use Ascending aorta dilation Back pain Background diabetic retinopathy associated with type 1 diabetes mellitus BPH loc w urin obs/LUTS CAD (coronary artery disease) Chronic fatigue disorder Complex sleep apnea syndrome CVA (cerebral vascular accident) Diabetes type 1, uncontrolled 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 Diabetic peripheral neuropathy associated with type 1 diabetes mellitus Dysphagia, oropharyngeal phase Factor V Leiden mutation GERD without esophagitis Glaucoma Gout History of diabetic ulcer of foot Hoarseness Hyperlipemia Hypertension Hypothyroidism Insomnia Kidney disease, chronic, stage II (mild, 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) Left inguinal hernia Leukopenia Microscopic hematuria NSTEMI (non-ST elevated myocardial infarction) Organic hypersomnia Pre-ulcerative corn or callous Primary hypercoagulable state Proteinuria Type 1 diabetes mellitus with complications Vertebral artery stenosis/occlusion Vitamin D deficiency Surgical History H/O hernia repair History of hand surgery History of hydrocelectomy History of surgical removal of ganglion cyst Hx of appendectomy S/P coronary artery stent placement Family History Mother COPD (chronic obstructive pulmonary disease) Coronary heart disease Heart disease Diabetes Hypertension Father Melanoma Heart disease Hypertension Brother Coronary heart disease Hypertension Myocardial infarction Son Diabetes Denies family history of Ovarian cancer Prostate cancer Breast cancer Lung cancer Colorectal cancer Stroke Social History Smoking Status: Unknown if ever smoked Second Hand Exposure: No; Hx Alcohol Use: Yes Alcohol type: hard liquor Alcohol Intake Frequency: 4 or More x per/Week Alcohol Intake Frequency Comment: Two shots per night (or more) Hx Substance Use: No Preferred Language: Guamanian Communication Ability: Effective Visual Impairment: Limited Hearing Ability: Normal Barrel Burner Required: No Beliefs That Will Affect Care: None marital status: Current Living Situation: Spouse current occupational status: retired current occupation: Retired from [employer] age 40 to How many Children do You have: 2 Feels Safe at Home: Yes Childhood Exposure to Second-Hand Smoke: Yes caffeine: Yes Dental Care, Regularly: Yes Physical Activity Frequency: Does not Exercise Seatbelt Use: always Sunscreen Use: Yes Assistive Devices: Cane and CPAP Allergies Allergies Allergy/AdvReac Type Severity Reaction Status Date / Time clindamycin Allergy Intermediate Rash Verified 11/23/21 02:14 Sulfa (Sulfonamide Allergy Intermediate HIVES Verified 11/23/21 02:14 Antibiotics) lisinopril Allergy Unknown Unknown Verified 11/23/21 02:14 Penicillins Allergy Unknown Unknown Verified 10/30/21 11:28 Home Meds Home Medications Medication Instructions Recorded Confirmed multivitamin 1 tab PO QDL #0 11/28/08 11/23/21 docusate sodium 100 mg capsule 300 mg PO HS #0 cap 01/19/17 11/23/21 magnesium 250 mg tablet 250 mg PO QDL #0 01/19/17 11/23/21 fluticasone propionate 50 2 sprays INTNAS DAILY PRN 01/10/19 11/23/21 mcg/actuation nasal spray,suspension lutein 20 mg capsule 20 mg PO QDL cap 01/10/19 11/23/21 thiamine HCl (vitamin B1) 100 mg 100 mg PO QDL tab 01/10/19 11/23/21 tablet aspirin 81 mg tablet,delayed 81 mg PO QAM 11/10/19 11/23/21 release cholecalciferol (vitamin D3) 50 50 mcg PO DAILY 07/31/20 11/23/21 mcg (2,000 unit) capsule Previous Rx's Medication Instructions Recorded glucagon HCl 1 mg solution for 1 mg SUBCUT Q20M PRN #1 ea 06/18/20 injection (Glucagon (HCl) Emergency Kit) atorvastatin 40 mg tablet 40 mg PO HS #90 tab 12/02/20 metoprolol tartrate 50 mg tablet 50 mg PO BID #180 tab 12/02/20 warfarin 5 mg tablet 5 mg PO DAILY@1500 #90 tab 12/02/20 finasteride 5 mg tablet 5 mg PO DAILY #90 tab 12/30/20 doxazosin 4 mg tablet 4 mg PO QAM #90 tab 01/27/21 folic acid 1 mg tablet See Rx Instructions .ROUTE 04/24/21 .COMPLEX #90 tablet nitroglycerin 0.4 mg sublingual 0.4 mg SUBLINGUAL UD PRN #25 tab 05/21/21 tablet (Nitrostat) levothyroxine 25 mcg tablet 25 mcg PO QAM #30 tab 07/03/21 acetone (urine) test (Ketone Urine #50 ea 08/05/21 Test) insulin lispro 100 unit/mL See Rx Instructions SUBCUT TID #15 08/05/21 subcutaneous pen (Humalog KwikPen ml (U-100) Insulin) insulin glargine U-300 conc 300 40 unit SUBCUT DAILY #15 ml 09/10/21 unit/mL (1.5 mL) subcutaneous pen (Toujeo SoloStar U-300 Insulin) isosorbide mononitrate 30 mg 30 mg PO QAM #90 tab 10/28/21 tablet,extended release 24 hr pen needle, diabetic 31 gauge x #150 ea 10/30/21 1" (Comfort EZ Pen [place]) azelastine 137 mcg (0.1 %) nasal 1 spray INTRANASAL BID #30 ml 11/11/21 spray aerosol Results & Data (ED) Vital Signs Vital Signs - 24 hr 11/23/21 00:55 11/23/21 01:00 11/23/21 01:30 Temperature 37.1 C Temperature Source Oral Pulse Rate 72 Pulse Rate [Apical] 72 81 83 Pulse Rhythm Regular Pulse Rhythm [Apical] Regular Regular Regular Pulse Strength Normal Pulse Strength [Apical] Normal Normal Normal Respiratory Rate 18 18 18 Respiratory Effort / Characteristics Non-Labored Spontaneous Non-Labored Spontaneous Non-Labored Spontaneous Respiratory Depth Normal Normal Normal Respiratory Pattern Regular Regular Regular Blood Pressure 173/120 H Blood Pressure [Left Arm] 173/120 H 195/62 H 207/80 H Blood Pressure Mean 137 Blood Pressure Mean [Left Arm] 137 106 122 Blood Pressure Position Lying Blood Pressure Position [Left Arm] Lying Lying Lying Pulse Oximetry 97 97 96 Oxygen Delivery Method Room Air Nasal Cannula Nasal Cannula Oxygen Flow Rate 4 4 Sepsis Recent Fever Within 48 Hours No Sepsis New/Unexplained Change in Mental Status Yes Sepsis Action Taken by Nursing No Action Required 11/23/21 02:00 11/23/21 02:30 11/23/21 02:54 Temperature 37.1 C Temperature Source Oral Pulse Rate Pulse Rate [Apical] 84 81 86 Pulse Rhythm Pulse Rhythm [Apical] Regular Regular Regular Pulse Strength Pulse Strength [Apical] Normal Normal Normal Respiratory Rate 16 16 16 Respiratory Effort / Characteristics Non-Labored Spontaneous Non-Labored Spontaneous Non-Labored Spontaneous Respiratory Depth Normal Normal Normal Respiratory Pattern Regular Regular Blood Pressure Blood Pressure [Left Arm] 173/94 H 236/116 H 200/96 H Blood Pressure Mean Blood Pressure Mean [Left Arm] 120 156 130 Blood Pressure Position Blood Pressure Position [Left Arm] Lying Lying Lying Pulse Oximetry 96 97 98 Oxygen Delivery Method Nasal Cannula Nasal Cannula Nasal Cannula Oxygen Flow Rate 4 4 4 Sepsis Recent Fever Within 48 Hours Sepsis New/Unexplained Change in Mental Status Sepsis Action Taken by Nursing 11/23/21 03:15 11/23/21 03:30 Temperature Temperature Source Pulse Rate Pulse Rate [Apical] 86 89 Pulse Rhythm Pulse Rhythm [Apical] Regular Regular Pulse Strength Pulse Strength [Apical] Normal Normal Respiratory Rate 16 16 Respiratory Effort / Characteristics Non-Labored Spontaneous Non-Labored Spontaneous Respiratory Depth Normal Normal Respiratory Pattern Regular Regular Blood Pressure Blood Pressure [Left Arm] 210/78 H 171/85 H Blood Pressure Mean Blood Pressure Mean [Left Arm] 122 113 Blood Pressure Position Blood Pressure Position [Left Arm] Lying Lying Pulse Oximetry 97 97 Oxygen Delivery Method Nasal Cannula Nasal Cannula Oxygen Flow Rate 4 4 Sepsis Recent Fever Within 48 Hours Sepsis New/Unexplained Change in Mental Status Sepsis Action Taken by Nursing Laboratory Data Result diagrams: 11/23/21 00:56 11/23/21 00:56 Lab Results 11/23/21 11/23/21 11/23/21 Range/Units 00:56 00:56 00:56 WBC 7.83 (4.8-10.8) K/uL RBC 4.42 L (4.7-6.1) M/uL Hgb 15.1 (14.0-18.0) g/dL Hct 42.3 (42-52) % MCV 95.7 (80-100) fL MCH 34.2 H (25-34) pg MCHC 35.7 (32-36) g/dL RDW Std Deviation 42.4 (36.4-46.3) fL RDW Coeff of Mary 12.2 (11.5-14.5) % Plt Count 168 (130-400) K/uL MPV 10.6 H (7.4-10.4) fL Immature Gran % (Auto) 0.1 % Neut % (Auto) 67.7 % Lymph % (Auto) 23.1 % [place] % (Auto) 6.8 % Eos % (Auto) 2.2 % Baso % (Auto) 0.1 % Neut # (Auto) 5.30 (1.4-6.5) K/uL Lymph # (Auto) 1.81 (1.2-3.4) K/uL [place] # (Auto) 0.53 (0.11-0.59) K/uL Eos # (Auto) 0.17 (0-0.5) K/uL Baso # (Auto) 0.01 (0-0.2) K/uL Immature Gran # (Auto) 0.01 (0.00-0.02) K/uL PT 28.1 H (9.0-12.0) Seconds INR 2.8 H (0.9-1.1) APTT 37.5 H (21.0-31.0) Seconds PTT Ratio 1.4 Sodium 135 L (136-145) mmol/L Potassium 4.1 (3.5-5.1) mmol/L Chloride 101 (98-107) mmol/L Carbon Dioxide 25 (21-32) mmol/L Anion Gap 9 (3-11) BUN 29 H (6-23) mg/dl Creatinine 1.29 (0.6-1.4) mg/dl Est Cr Clr Drug Dosing 48.6 ml/min Est GFR ( Amer) 60.3 ml/min Est GFR (Non-Af Amer) 52.0 ml/min BUN/Creatinine Ratio 22.5 H (10-20) Glucose 286 H (70-99(Fasting)) mg/dl Calcium 9.0 (8.5-10.1) mg/dl Magnesium 2.1 (1.7-2.4) mg/dl Total Bilirubin 0.7 (0.2-1.0) mg/dl AST 36 (13-39) U/L ALT 47 (7-52) U/L Alkaline Phosphatase 65 (34-104) U/L Troponin I High Sens 10.0 (0-20) pg/ml Total Protein 7.2 (6.0-8.3) gm/dl Albumin 4.6 (3.4-5.0) gm/dl Globulin 2.6 (2.5-4.0) gm/dl Albumin/Globulin Ratio 1.8 (0.9-2) SARS-CoV-2, RNA, NAAT (NEGATIVE) Blood Type Antibody Screen 11/23/21 11/23/21 11/23/21 Range/Units 01:35 01:35 02:15 WBC (4.8-10.8) K/uL RBC (4.7-6.1) M/uL Hgb (14.0-18.0) g/dL Hct (42-52) % MCV (80-100) fL MCH (25-34) pg MCHC (32-36) g/dL RDW Std Deviation (36.4-46.3) fL RDW Coeff of Mary (11.5-14.5) % Plt Count (130-400) K/uL MPV (7.4-10.4) fL Immature Gran % (Auto) % Neut % (Auto) % Lymph % (Auto) % [place] % (Auto) % Eos % (Auto) % Baso % (Auto) % Neut # (Auto) (1.4-6.5) K/uL Lymph # (Auto) (1.2-3.4) K/uL [place] # (Auto) (0.11-0.59) K/uL Eos # (Auto) (0-0.5) K/uL Baso # (Auto) (0-0.2) K/uL Immature Gran # (Auto) (0.00-0.02) K/uL PT (9.0-12.0) Seconds INR (0.9-1.1) APTT (21.0-31.0) Seconds PTT Ratio Sodium (136-145) mmol/L Potassium (3.5-5.1) mmol/L Chloride (98-107) mmol/L Carbon Dioxide (21-32) mmol/L Anion Gap (3-11) BUN (6-23) mg/dl Creatinine (0.6-1.4) mg/dl Est Cr Clr Drug Dosing ml/min Est GFR ( Amer) ml/min Est GFR (Non-Af Amer) ml/min BUN/Creatinine Ratio (10-20) Glucose (70-99(Fasting)) mg/dl Calcium (8.5-10.1) mg/dl Magnesium (1.7-2.4) mg/dl Total Bilirubin (0.2-1.0) mg/dl AST (13-39) U/L ALT (7-52) U/L Alkaline Phosphatase (34-104) U/L Troponin I High Sens 9.8 (0-20) pg/ml Total Protein (6.0-8.3) gm/dl Albumin (3.4-5.0) gm/dl Globulin (2.5-4.0) gm/dl Albumin/Globulin Ratio (0.9-2) SARS-CoV-2, RNA, NAAT NEGATIVE (NEGATIVE) Blood Type B Positive Antibody Screen NEGATIVE Administered Medications Discontinued Medications Ioversol (Optiray 320 125ml) 119 ml IV ONCE ONE Stop: 11/23/21 01:29 Last Admin: 11/23/21 01:28 Dose: 119 ml Documented by: [id number] Labetalol HCl (Labetalol Hcl Iv 5 Mg/Ml 20ml) 10 mg IV NOW STA Stop: 11/23/21 03:04 Last Admin: 11/23/21 03:10 Dose: 10 mg Documented by: [id number] Cosigned by: [id number] Discharge Plan Visit Data Chief Complaint: Stroke/CVA Symptoms Stated Complaint: Stroke Sx ED Provider: Amy Gonzales Discharge Problem: Stroke-like symptoms, Expressive aphasia Forms Stand Alone Forms: My [facility] [place] [employer] Prescriptions Prescriptions: No Action multivitamin Tablet 1 tab PO QDL Qty: 0 RF: 0 docusate sodium 100 mg Capsule 300 mg PO HS Qty: 0 RF: 0 magnesium 250 mg Tablet 250 mg PO QDL Qty: 0 RF: 0 Glucagon (HCl) Emergency Kit 1 mg recon soln 1 mg subcut Q20M PRN (Reason: hypoglycemia) Qty: 1 RF: 1 doxazosin 4 mg tablet 4 mg PO QAM Qty: 90 RF: 3 folic acid 1 mg tablet See Rx Instructions .ROUTE .COMPLEX Qty: 90 RF: 3 nitroglycerin [Nitrostat] 0.4 mg tablet, sublingual 0.4 mg sublingual UD PRN (Reason: Chest Pain) Qty: 25 RF: 3 levothyroxine 25 mcg tablet 25 mcg PO QAM Qty: 30 RF: 5 isosorbide mononitrate 30 mg tablet extended release 24 hr 30 mg PO QAM Qty: 90 RF: 3 Toujeo SoloStar U-300 Insulin 300 unit/mL (1.5 mL) insulin pen 40 unit subcut DAILY Qty: 15 RF: 2 aspirin 81 mg tablet,delayed release (DR/EC) 81 mg PO QAM RF: 0 (DME) Ketone Urine Test Strip See Rx Instructions .MEDSUPPLY Qty: 50 RF: 2 insulin lispro [Humalog KwikPen Insulin] 100 unit/mL insulin pen See Rx Instructions subcut TID Qty: 15 RF: 5 cholecalciferol (vitamin D3) 50 mcg (2,000 unit) capsule 50 mcg PO DAILY RF: 0 azelastine 137 mcg (0.1 %) aerosol,spray 1 spray intranasal BID Qty: 30 RF: 11 lutein 20 mg capsule 20 mg PO QDL RF: 0 thiamine HCl (vitamin B1) 100 mg tablet 100 mg PO QDL RF: 0 fluticasone propionate 50 mcg/actuation spray,suspension 2 sprays INTNAS DAILY PRN (Reason: Nasal Congestion) RF: 0 finasteride 5 mg tablet 5 mg PO DAILY Qty: 90 RF: 3 metoprolol tartrate 50 mg tablet 50 mg PO BID Qty: 180 RF: 3 warfarin 5 mg tablet 5 mg PO DAILY@1500 Qty: 90 RF: 3 atorvastatin 40 mg tablet 40 mg PO HS Qty: 90 RF: 3 (DME) pen needle, diabetic [Comfort EZ Pen [place]] 31 gauge x 1/4" needle See Rx Instructions .Route Qty: 150 RF: 5 Referrals Referrals: Sheng Sherman MD [Primary Care Provider] -
[2021-11-23 01:23] LABS: INR 2.8 (0.9-1.1); Partial Thromboplastin Ratio 1.4; Partial Thromboplastin Time 37.5 Seconds (21.0-31.0); Prothrombin Time 28.1 Seconds (9.0-12.0)
[2021-11-23] MEDS ORDERED: OPTIRAY 320 125ml IV ONE (01:28)
[2021-11-23 01:30] LABS: BUN Creatinine Ratio 22.5 (10-20); Creatinine Clr Calc Pharmacy 48.6 ml/min; Est GFR (African American) 60.3 ml/min; Potassium 4.1 mmol/L (3.5-5.1)
[2021-11-23 01:31] LABS: Albumin Globulin Ratio 1.8 (0.9-2); Albumin Level 4.6 gm/dl (3.4-5.0); Bilirubin,Total 0.7 mg/dl (0.2-1.0); Globulin 2.6 gm/dl (2.5-4.0); Magnesium 2.1 mg/dl (1.7-2.4); Total Protein 7.2 gm/dl (6.0-8.3)
--- NOTE | 2021-11-23 02:54 | History & Physical Report ---
Date of Service November 23, 2021 Assessment & Plan (1) Dysarthria: Plan: 80yo male with history of DM-I, HTN, HLP, CAD, prior CVA and TIAs presenting with several hours (possibly longer) of expressive aphasia. Patient is unable to name items, cannot state 's name, unable to answer some questions. Also with dull CHACON, mild blurry vision and elevated BP. Concern for TIA vs CVA Workup thus far with atherosclerotic plaques noted in carotids, aortic arch. ?embolization? 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 Hyperglycemic with FFD=578 presently. Last SbfH9F=5.4 on 10/28/21 -Will administer IV insulin now - 8u -Lantus 20u daily -ISS -Goal blood sugar 140-180 for now -Pharmacy Glycemic management consultation appreciated (3) Hypertension: Plan: Elevated blood pressure in setting of likely TIA/CVA -Hold oral antihypertensives to allow for permissive HTN - Isosorbide mononitrate, Metoprolol -Labetalol IV as needed -Monitor (4) Dyslipidemia: Plan: Chronic. On Atorvastatin 40mg po daily -Check lipid panel -Continue Atorvastatin (5) Factor V Leiden mutation: Plan: Patient with prior VTE, h/o Factor V Leiden. On Coumadin anticoagulation with INR of 2.8 -Hold Coumadin for now -Repeat INR in AM (6) BPH (benign prostatic hyperplasia): Plan: Chronic -Continue Doxazosin and Finasteride -Bladder scan and straight cath as needed for urinary retention -Monitor I/Os (7) Alcohol abuse: Plan: Patient denies drinking alcohol. Has history of Etoh use. 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 Patient hypoxic in ER requiring supplemental O2 -CPAP qHS Plan: F/E/N - Heplock. Electrolytes WNL. Type I DM diet as tolerated with aspiration precautions and dysphagia screening PRN Ppx - SCDs Code -Full Dispo - Admit to PCU History of Present Illness Chief Complaint: aphasia Primary Care Provider: Sheng Sherman MD Sheng Cagle is an 80yo right-hand dominant male with history of DM-I, HTN, HLP, CAD. He has history of prior CVA and several TIAs in the past. He is on ASA and Atorvastatin 40mg daily as well as Coumadin for history of hypercoagul ability secondary to Factor V Leiden. Patient presents with expressive aphasia. Is unable to articulate details of events prior to arrival. History obtained mainly from at bedside. She reports that patient had similar episode of expressive aphasia approximately 2-3 days ago. The episode lasted approximately 30 minutes - patient was unable to say appropriate words; was unable to say his 's name. His symptoms resolved completely after appx 30 minutes. This evening patient again developed expressive aphasia and slightly slurred speech. She thinks that the symptoms began around 17:30, but did admit that they could have started earlier because they don't talk a lot. Patient and his went out to dinner at [facility] to celebrate Father's Day. He had some difficulty speaking prior to dinner - was not answering questions appropriately. Symptoms continued through dinner. thought that symptoms may have become worse during dinner but thought that this may be secondary to the drink that he had. No focal numbness or weakness noted. Patient has some gait disturbance at baseline and states that this is unchanged. He has frequent falls at home but no head trauma reported. Patient presently with complaint of dull headache and mildly blurred vision. He is aware that he is unable to say the proper words. He is somewhat frustrated by this but mostly tired and wants to go to sleep. No additional complaints at this time. He denies fever, chills, neck pain, chest pain, cough, SOB, abdominal pain, nausea, vomiting, diarrhea or constipation. Allergies Allergy/AdvReac Type Severity Reaction Status Date / Time clindamycin Allergy Intermediate Rash Verified 11/23/21 02:14 Sulfa (Sulfonamide Allergy Intermediate HIVES Verified 11/23/21 02:14 Antibiotics) lisinopril Allergy Unknown Unknown Verified 11/23/21 02:14 Penicillins Allergy Unknown Unknown Verified 10/30/21 11:28 Home Medications Medication Instructions Recorded Confirmed Type multivitamin 1 tab PO QDL #0 11/28/08 11/23/21 History docusate sodium 100 mg capsule 300 mg PO HS #0 cap 01/19/17 11/23/21 History magnesium 250 mg tablet 250 mg PO QDL #0 01/19/17 11/23/21 History fluticasone propionate 50 2 sprays INTNAS DAILY PRN 01/10/19 11/23/21 History mcg/actuation nasal spray,suspension lutein 20 mg capsule 20 mg PO QDL cap 01/10/19 11/23/21 History thiamine HCl (vitamin B1) 100 mg 100 mg PO QDL tab 01/10/19 11/23/21 History tablet aspirin 81 mg tablet,delayed 81 mg PO QAM 11/10/19 11/23/21 History release glucagon HCl 1 mg solution for 1 mg SUBCUT Q20M PRN #1 ea 06/18/20 11/23/21 Rx injection (Glucagon (HCl) Emergency Kit) cholecalciferol (vitamin D3) 50 50 mcg PO DAILY 07/31/20 11/23/21 History mcg (2,000 unit) capsule atorvastatin 40 mg tablet 40 mg PO HS #90 tab 12/02/20 11/23/21 Rx metoprolol tartrate 50 mg tablet 50 mg PO BID #180 tab 12/02/20 11/23/21 Rx warfarin 5 mg tablet 5 mg PO DAILY@1500 #90 tab 12/02/20 11/23/21 Rx finasteride 5 mg tablet 5 mg PO DAILY #90 tab 12/30/20 11/23/21 Rx doxazosin 4 mg tablet 4 mg PO QAM #90 tab 01/27/21 11/23/21 Rx folic acid 1 mg tablet See Rx Instructions .ROUTE 04/24/21 11/23/21 Rx .COMPLEX #90 tablet nitroglycerin 0.4 mg sublingual 0.4 mg SUBLINGUAL UD PRN #25 tab 05/21/21 11/23/21 Rx tablet (Nitrostat) levothyroxine 25 mcg tablet 25 mcg PO QAM #30 tab 07/03/21 11/23/21 Rx acetone (urine) test (Ketone Urine #50 ea 08/05/21 11/23/21 Rx Test) insulin lispro 100 unit/mL See Rx Instructions SUBCUT TID #15 08/05/21 11/23/21 Rx subcutaneous pen (Humalog KwikPen ml (U-100) Insulin) insulin glargine U-300 conc 300 40 unit SUBCUT DAILY #15 ml 09/10/21 11/23/21 Rx unit/mL (1.5 mL) subcutaneous pen (Toujeo SoloStar U-300 Insulin) isosorbide mononitrate 30 mg 30 mg PO QAM #90 tab 10/28/21 11/23/21 Rx tablet,extended release 24 hr pen needle, diabetic 31 gauge x #150 ea 10/30/21 11/23/21 Rx 1/4" (Comfort EZ Pen [place]) azelastine 137 mcg (0.1 %) nasal 1 spray INTRANASAL BID #30 ml 11/11/21 11/23/21 Rx spray aerosol Past Med/Surg History Medical History Acquired claw toe of both feet Acquired hallux valgus of both feet Anti-cardiolipin antibody positive Anticoagulant long-term use Ascending aorta dilation Back pain Background diabetic retinopathy associated with type 1 diabetes mellitus BPH loc w urin obs/LUTS CAD (coronary artery disease) Chronic fatigue disorder Complex sleep apnea syndrome CVA (cerebral vascular accident) Diabetes type 1, uncontrolled 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 Diabetic peripheral neuropathy associated with type 1 diabetes mellitus Dysphagia, oropharyngeal phase Factor V Leiden mutation GERD without esophagitis Glaucoma Gout History of diabetic ulcer of foot Hoarseness Hyperlipemia Hypertension Hypothyroidism Insomnia Kidney disease, chronic, stage II (mild, 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) Left inguinal hernia Leukopenia Microscopic hematuria NSTEMI (non-ST elevated myocardial infarction) Organic hypersomnia Pre-ulcerative corn or callous Primary hypercoagulable state Proteinuria Type 1 diabetes mellitus with complications Vertebral artery stenosis/occlusion Vitamin D deficiency Surgical History H/O hernia repair History of hand surgery History of hydrocelectomy History of surgical removal of ganglion cyst Hx of appendectomy S/P coronary artery stent placement Family History Mother COPD (chronic obstructive pulmonary disease) Coronary heart disease Heart disease Diabetes Hypertension Father Melanoma Heart disease Hypertension Brother Coronary heart disease Hypertension Myocardial infarction Son Diabetes Denies family history of Ovarian cancer Prostate cancer Breast cancer Lung cancer Colorectal cancer Stroke Social History Smoking Status: Unknown if ever smoked Second Hand Exposure: No; Hx Alcohol Use: Yes Alcohol type: hard liquor Alcohol Intake Frequency: 4 or More x per/Week Alcohol Intake Frequency Comment: Two shots per night (or more) Hx Substance Use: No Preferred Language: Trinidadian Communication Ability: Effective Visual Impairment: Limited Hearing Ability: Normal Medical Transcription Editor Required: No Beliefs That Will Affect Care: None marital status: Current Living Situation: Spouse current occupational status: retired current occupation: Retired from [employer] age 40 to How many Children do You have: 2 Feels Safe at Home: Yes Childhood Exposure to Second-Hand Smoke: Yes caffeine: Yes Dental Care, Regularly: Yes Physical Activity Frequency: Does not Exercise Seatbelt Use: always Sunscreen Use: Yes Assistive Devices: Cane and CPAP Review of Systems Review of Systems: All systems reviewed & are unremarkable except as noted in HPI & below Physical Exam Physical Exam: General: patient resting comfortably, NAD, non-toxic in appearance, able to state full name but not location/date. Answers yes or no questions. Skin: warm, dry, intact, no rashes or lesions HEENT: NC/AT, PERRL, EOMI, anicteric sclera, conjunctiva without injection, external ear normal to inspection and nontender, nares patent, moist mucus membranes, dentition intact, no oropharyngeal lesions, neck supple, trachea midline, no LAD, no thyromegaly, no JVD Heart: +S1/S2, regular, no m/r/g Lungs: equal air entry bilaterally, no rales/rhonchi/wheezes Abd: +BS, soft, NT/ND, no masses/organomegaly/ascites Ext: warm, 2+ pulses in UE/LE bilaterally, no clubbing/cyanosis or edema Neuro: patient able to state name, unable to state location/date/situation. CN II - XII grossly intact, tongue midline, sensation to light touch intact with slight decrease on lateral right leg, MS 5/5 in UE/LE bilaterally, difficult performing finger to nose testing. Patient is unable to name or state how many children he has Results & Data Results & Data ([facility]) Vital Signs (Past 12 Hours) Vital Signs Temp Pulse Pulse Resp BP BP Pulse Ox 11/23/21 02:00 37.1 C 84 16 173/94 H 96 11/23/21 01:30 83 18 207/80 H 96 11/23/21 01:00 81 18 195/62 H 97 11/23/21 00:55 37.1 C 72 72 18 173/120 H 173/120 H 97 Laboratory Results Laboratory Results WBC 7.83 K/uL (4.8-10.8) 11/23/21 00:56 RBC 4.42 M/uL (4.7-6.1) L 11/23/21 00:56 Hgb 15.1 g/dL (14.0-18.0) 11/23/21 00:56 Hct 42.3 % (42-52) 11/23/21 00:56 MCV 95.7 fL (80-100) 11/23/21 00:56 MCH 34.2 pg (25-34) H 11/23/21 00:56 MCHC 35.7 g/dL (32-36) 11/23/21 00:56 RDW Std Deviation 42.4 fL (36.4-46.3) 11/23/21 00:56 RDW Coeff of Mary 12.2 % (11.5-14.5) 11/23/21 00:56 Plt Count 168 K/uL (130-400) 11/23/21 00:56 MPV 10.6 fL (7.4-10.4) H 11/23/21 00:56 Immature Gran % (Auto) 0.1 % 11/23/21 00:56 Neut % (Auto) 67.7 % 11/23/21 00:56 Lymph % (Auto) 23.1 % 11/23/21 00:56 [place] % (Auto) 6.8 % 11/23/21 00:56 Eos % (Auto) 2.2 % 11/23/21 00:56 Baso % (Auto) 0.1 % 11/23/21 00:56 Neut # (Auto) 5.30 K/uL (1.4-6.5) 11/23/21 00:56 Lymph # (Auto) 1.81 K/uL (1.2-3.4) 11/23/21 00:56 [place] # (Auto) 0.53 K/uL (0.11-0.59) 11/23/21 00:56 Eos # (Auto) 0.17 K/uL (0-0.5) 11/23/21 00:56 Baso # (Auto) 0.01 K/uL (0-0.2) 11/23/21 00:56 Immature Gran # (Auto) 0.01 K/uL (0.00-0.02) 11/23/21 00:56 PT 28.1 Seconds (9.0-12.0) H 11/23/21 00:56 INR 2.8 (0.9-1.1) H 11/23/21 00:56 APTT 37.5 Seconds (21.0-31.0) H 11/23/21 00:56 PTT Ratio 1.4 11/23/21 00:56 Sodium 135 mmol/L (136-145) L 11/23/21 00:56 Potassium 4.1 mmol/L (3.5-5.1) 11/23/21 00:56 Chloride 101 mmol/L (98-107) 11/23/21 00:56 Carbon Dioxide 25 mmol/L (21-32) 11/23/21 00:56 Anion Gap 9 (3-11) 11/23/21 00:56 BUN 29 mg/dl (6-23) H 11/23/21 00:56 Creatinine 1.29 mg/dl (0.6-1.4) 11/23/21 00:56 Est Cr Clr Drug Dosing 48.6 ml/min 11/23/21 00:56 Est GFR ( Amer) 60.3 ml/min 11/23/21 00:56 Est GFR (Non-Af Amer) 52.0 ml/min 11/23/21 00:56 BUN/Creatinine Ratio 22.5 (10-20) H 11/23/21 00:56 Glucose 286 mg/dl (70-99(Fasting)) H 11/23/21 00:56 Calcium 9.0 mg/dl (8.5-10.1) 11/23/21 00:56 Magnesium 2.1 mg/dl (1.7-2.4) 11/23/21 00:56 Total Bilirubin 0.7 mg/dl (0.2-1.0) 11/23/21 00:56 AST 36 U/L (13-39) 11/23/21 00:56 ALT 47 U/L (7-52) 11/23/21 00:56 Alkaline Phosphatase 65 U/L (34-104) 11/23/21 00:56 Troponin I High Sens 9.8 pg/ml (0-20) 11/23/21 01:35 Total Protein 7.2 gm/dl (6.0-8.3) 11/23/21 00:56 Albumin 4.6 gm/dl (3.4-5.0) 11/23/21 00:56 Globulin 2.6 gm/dl (2.5-4.0) 11/23/21 00:56 Albumin/Globulin Ratio 1.8 (0.9-2) 11/23/21 00:56 SARS-CoV-2, RNA, NAAT NEGATIVE (NEGATIVE) 11/23/21 02:15 Blood Type B Positive 11/23/21 01:35 Antibody Screen NEGATIVE 11/23/21 01:35 Diagnostic Findings CXR by my interpretation- poor inspiratory effort - appear to have some bilateral airspace opacities - similar to prior study from 07/13/21 CT Head, CTA Head and Neck - Moderate atherosclerosis of the aortic arch. Moderate atherosclerosis of the right carotid bulb and proximal right ICA. No significant stenosis. Moderate atherosclerosis of the left carotid bulb an dproximal left ICA without significant stenosis. The vertebral arteries are intact. Upper lung cintron are clear. Soft tissue structures are intact. 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
[2021-11-23] MEDS ORDERED: LABETALOL HCL IV 5 MG/ML 20ML IV STA (03:03)
[2021-11-23] MEDS ORDERED: NovoLIN-R INSULIN PER UNIT CHARGE IV STA (03:22)
[2021-11-23] MEDS ORDERED: GLUCOSE 40% GEL 15 GM TUBE PO PRN (04:52)
[2021-11-23] MEDS ORDERED: ONDANSETRON INJ 2 MG/ML 2 ML VIAL IV PRN (04:52)
[2021-11-23] MEDS ORDERED: DEXTROSE 50% 50 ML SYRINGE IV PRN (04:52)
[2021-11-23] MEDS ORDERED: CARBOHYDRATES FOR HYPOGLYCEMIA PO PRN (04:52)
[2021-11-23] MEDS ORDERED: GLUCOSE 10 TABS/TUBE PO PRN (04:52)
[2021-11-23] MEDS ORDERED: PHARMACY GLYCEMIC MGMT CONSULT PRN (04:52)
[2021-11-23] MEDS ORDERED: LORazepam 1 MG TAB PO PRN (04:52)
[2021-11-23] MEDS ORDERED: LABETALOL HCL IV 5 MG/ML 20ML IV PRN (04:52)
[2021-11-23] MEDS ORDERED: PHARMACIST DISCHARGE MED REC CONSULT PRN (04:52)
[2021-11-23] MEDS ORDERED: ACETAMINOPHEN 325 MG TAB PO PRN (04:52)
[2021-11-23] MEDS ORDERED: GLUCAGON FOR INJ 1 MG VIAL SQ PRN (04:52)
--- NOTE | 2021-11-23 06:27 | XRay Report ---
XR chest 1V portable CLINICAL HISTORY: o2 requirement COMPARISON STUDY: Chest CT October 12, 2017. Chest radiograph July 13, 2021. FINDINGS: Cardiomegaly is unchanged. No pneumothorax or pleural effusion is present. Lower lung inter stitial thickening is unchanged. This is likely chronic. There is no consolidation to suggest pneumon ia. There has been no significant change in appearance of the chest. IMPRESSION: No acute cardiopulmonary findings. No change in appearance of the chest. ACT 112: Negative or not required by law. Electronically signed by: Billy Dominguez M.D. 11/23/2021 6:25 AM
[2021-11-23] MEDS: LEVOTHYROXINE SODIUM 25 MCG TABLET PO SCH (06:40)
--- NOTE | 2021-11-23 06:59 | CT Scan Report ---
CT OF THE HEAD WITHOUT CONTRAST CLINICAL HISTORY: Stroke Like Symptoms COMPARISON STUDY: MRI of the brain and head CT July 13, 2021. TECHNIQUE: Helical axial images of the head were obtained without IV contrast. Automated exposure con trol was utilized for the study. A dose lowering technique was utilized adhering to the principles o f ALARA. FINDINGS: No acute intracranial hemorrhage, midline shift or mass effect is present. The ventricular system is stable. White matter hypodensity suggests small vessel disease. The basal cisterns are [place] nt. No extra-axial collections are present. There are no findings to suggest acute dural sinus thromb osis or acute territorial infarct. No significant calvarial abnormalities are present. Visualized por tions of the sinuses and mastoid air cells are clear. IMPRESSION: No acute intracranial findings. No change in appearance of the brain. ACT 112: Negative or not required by law. Electronically signed by: Billy Dominguez M.D. 11/23/2021 6:58 AM
--- NOTE | 2021-11-23 07:11 | CT Scan Report ---
CT ANGIOGRAPHY OF THE NECK WITH CONTRAST CLINICAL HISTORY: Stroke Like Symptoms COMPARISON STUDY: CTA of the neck July 20, 2019. Technique: CT angiography of the carotid and vertebral arteries was obtained using Optiray and 3D rec onstruction on an independent workstation. NASCET criteria was utilized. Automated exposure control was utilized for the study. A dose lowering technique was utilized adhering to the principles of ALA RA. CT DOSE: 1249.28 mGy.cm Findings: Prominence of the lingual tonsils with suspected mucous retention cysts is similar to CTA o f July 20, 2019. Visualized portions of the lung apices are unremarkable. There is no cervical ly mphadenopathy. No acute cervical spine fracture is present. The origins of the bilateral vertebral ar teries are not well assessed on this examination due to artifact. However, the bilateral vertebral ar teries are patent. There is no dissection within these vessels. There is extensive calcified plaque w ithin the proximal bilateral internal carotid arteries without stenosis. The bilateral common carotid arteries are also patent. Extensive calcified plaque within visualized portions of the aortic arch. No aneurysm within the neck. IMPRESSION: 1. Extensive atherosclerotic plaque within the proximal bilateral internal carotid arteries without s tenosis. 2. No dissection or aneurysm within the neck. ACT 112: Negative or not required by law. Electronically signed by: Billy Dominguez M.D. 11/23/2021 7:09 AM
--- NOTE | 2021-11-23 07:33 | CT Scan Report ---
CTA ANGIOGRAPHY OF THE HEAD CLINICAL HISTORY: Stroke Like Symptoms COMPARISON STUDY: CTA of the head July 20, 2019. TECHNIQUE: Helical axial images of the head were obtained following uneventful intravenous administr ation of 119 cc of Optiray. Sagittal and coronal reconstructions were viewed as well as maximal inten sity projections on an independent 3-D workstation. Automated exposure control was utilized for the study. A dose lowering technique was utilized adhering to the principles of ALARA. FINDINGS: Head CT will be reported separately. Ventricular system is stable. Basal cisterns are paten t. There are no extra-axial collections. Moderate stenosis of the petrous portion of the left interna l carotid artery is similar to CT of July 20, 2019. This extensive calcified plaque within the bi lateral cavernous carotids. No additional stenoses are identified. The bilateral M1, M2, A1 and A2 se gments are patent. There is no intracranial aneurysm. persistence of the right posterior cerebr al artery is noted. 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 IMPRESSION: 1. No central vessel occlusion. No intracranial aneurysm. 2. No change in multifocal stenoses within the intracranial vessels since CTA of July 20, 2019, a s described above. ACT 112: Negative or not required by law. Electronically signed by: Billy Dominguez M.D. 11/23/2021 7:32 AM
[2021-11-23] MEDS: INSULIN ASPART PER UNIT SC SCH ×4 (08:11→21:24)
[2021-11-23] MEDS: INSULIN GLARGINE SOLOSTAR 100 UNITS/ML 3 ML PEN SC SCH (08:13)
[2021-11-23] MEDS: AZELASTINE HCL 0.1% NASAL 200 SPRAYS/27,400 MCG BTL SCH ×2 (08:15→20:15)
[2021-11-23] MEDS: DOXAZosin MESYLATE TAB 2 MG TAB PO SCH (08:17)
[2021-11-23] MEDS: CLOPIDOGREL BISULFATE 75 MG TAB PO SCH (08:17)
[2021-11-23] MEDS: FINASTERIDE 5 MG TAB PO SCH (08:17)
[2021-11-23] MEDS: FOLIC ACID 1 MG TAB PO SCH (08:17)
[2021-11-23] MEDS ORDERED: DOXAZosin MESYLATE 4 MG TAB PO SCH (09:00)
[2021-11-23] MEDS ORDERED: GADOBUTROL 10ML VIAL IV ONE (10:11)
--- NOTE | 2021-11-23 10:26 | Electrocardiogram Report ---
Test Reason : Blood Pressure : / mmHG Vent. Rate : 089 BPM Atrial Rate : 089 BPM P-R Int : 234 ms QRS Dur : 094 ms QT Int : 384 ms P-R-T Axes : 054 008 103 degrees QTc Int : 467 ms Poor data quality, interpretation may be adversely affected Sinus rhythm with 1st degree A-V block lateral ST depression Abnormal ECG When compared with ECG of 15-JUL-2021 05:47, AL interval has increased Criteria for both anterior and Inferior infarct are no longer Present T wave inversion no longer evident in Inferior leads Confirmed by Cody Salomon ([id number]) on 11/23/2021 10:26:11 AM Referred By: REFERRED SELF Confirmed By:Cody Salomon
--- NOTE | 2021-11-23 10:44 | Magnetic Resonance Report ---
MR brain wo/w con CLINICAL HISTORY: Aphasia. Headache and blurred vision. Evaluate for CVA. COMPARISON STUDY: 07/13/2021 TECHNIQUE: Multiplanar multisequence images of the brain were performed before and after Gadavist, 8 .5 mL of IV contrast. Diffusion weighted imaging and ADC mapping was also performed. FINDINGS: Extra-axial space: There is no evidence for a subdural hematoma, There are no extra-axial fluid zaki ections. Ventricles and cisterns: The ventricles are mildly dilated bilaterally. There is no evidence for mid line shift or mass effect. Parenchyma: On noncontrast images, there is no evidence for an acute hemorrhage or infarct. No acute diffusion abnormalities are noted on diffusion weighted imaging or ADC mapping. There is normal sutton -white differentiation. There is mild cerebral cortical atrophy present. There is bright signal seen on FLAIR weighted sequences within the centrum semiovale and periventricular white matter characteris tic of remote small vessel disease. The sulci and gyri appear normal without effacement. The midline structures are unremarkable. The posterior fossa structures appear normal. On postcontrast images, there is no evidence for enhancing mass lesion. Osseous structures: The paranasal sinuses are well aerated. The mastoid air cells are well aerated. Soft tissues: No focal soft tissue abnormalities are identified. IMPRESSION: 1. No acute intracranial abnormalities. 2. Cerebral cortical atrophy and remote small vessel disease are present. ACT 112: Negative or not required by law. Electronically signed by: Pedro Thayer M.D. 11/23/2021 10:41 AM
--- NOTE | 2021-11-23 11:36 | Pharmacy Report ---
Pharmacy Glycemic Short Note 2 - Date of Service November 23, 2021 - Glycemic Short BSG Results (Last 24 hours): 11/23/21 11/23/21 11/23/21 00:56 06:37 11:11 Glucose 286 H POC Glucose 240 H 216 H OUTPATIENT ANTIDIABETIC REGIMEN: * Per most recent outpatient endocrine note (10/27/21) * Lantus 20 units SC daily * Humalog TIDM (CF of 45, INS:CHO of 3) HbA1c: 8.4% (10/28/21) ASSESSMENT: * PL is an 80 year-old male w/ long-standing T1DM, followed by [facility] * Presented overnight with expressive aphasia (concern for TIA/CVA) * BSG of 286 mg/dL on presentation * Given home dose of Lantus this morning, will change Novolog parameters to approximate outpatient ones * will be slightly more conservative given aggressive CF in patient of advanced age PLAN FOR INPATIENT GLYCEMIC CONTROL: * Basal insulin * Lantus 20 units SQ daily * Bolus insulin * NovoLog per scale ACHS or Q6hrs while NPO * Goal Range: Low 110 mg/dL - High 140 mg/dL * Correction Factor: 45 mg/dL/unit * Nutritional / Prandial insulin per carb ratio of 1 unit per 4 grams CHO consumed
[2021-11-23] MEDS: THIAMINE HCL 100 MG TAB PO SCH (12:06)
[2021-11-23] MEDS ORDERED: DOCUSATE SODIUM 100 MG CAP PO SCH (21:00)
[2021-11-23] MEDS ORDERED: ATORVASTATIN 40 MG TAB PO SCH (21:00)
[2021-11-24] MEDS ORDERED: INSULIN ASPART PER UNIT SC SCH ×2 (02:00)
[2021-11-24 06:18] LABS: Basophils # (auto) 0.03 K/uL (0-0.2); Basophils % (auto) 0.4 %; Eosinophils # (auto) 0.25 K/uL (0-0.5); Eosinophils % (auto) 3.7 %; Hematocrit (blood only) 40.9 % (42-52); Immature Granulocytes # (auto) 0.02 K/uL (0.00-0.02); Immature Granulocytes % (auto) 0.3 %; Lymphocytes % (auto) 23.6 %; Mean Corpuscular Hemoglobin 32.4 pg (25-34); Mean Corpuscular Hgb Conc 34.2 g/dL (32-36); Mean Corpuscular Volume 94.7 fL (80-100); Mean Platelet Volume 10.5 fL (7.4-10.4); Monocytes # (auto) 0.82 K/uL (0.11-0.59); Monocytes % (auto) 12.1 %; Neutrophils # (auto) 4.07 K/uL (1.4-6.5); Neutrophils % (auto) 59.9 %; Platelet Count 152 K/uL (130-400); RDW Coefficient of Variation 12.6 % (11.5-14.5); RDW Standard Deviation 43.1 fL (36.4-46.3); Red Blood Count 4.32 M/uL (4.7-6.1); White Blood Count 6.79 K/uL (4.8-10.8)
[2021-11-24 06:28] LABS: INR 2.6 (0.9-1.1); Prothrombin Time 26.7 Seconds (9.0-12.0)
[2021-11-24 06:45] LABS: BUN Creatinine Ratio 18.1 (10-20); Calcium 8.8 mg/dl (8.5-10.1); Chol HDL Ratio 3.5 (0-5); Creatinine Clr Calc Pharmacy 49.4 ml/min; Est GFR (African American) 61.4 ml/min; Potassium 3.9 mmol/L (3.5-5.1)
[2021-11-24] MEDS: LEVOTHYROXINE SODIUM 25 MCG TABLET PO SCH (07:07)
[2021-11-24] MEDS: DOXAZosin MESYLATE TAB 2 MG TAB PO SCH (08:59)
[2021-11-24] MEDS: AZELASTINE HCL 0.1% NASAL 200 SPRAYS/27,400 MCG BTL SCH (08:59)
[2021-11-24] MEDS: CLOPIDOGREL BISULFATE 75 MG TAB PO SCH (08:59)
[2021-11-24] MEDS: FINASTERIDE 5 MG TAB PO SCH (08:59)
[2021-11-24] MEDS: FOLIC ACID 1 MG TAB PO SCH (09:00)
[2021-11-24] MEDS: INSULIN GLARGINE SOLOSTAR 100 UNITS/ML 3 ML PEN SC SCH (09:00)
[2021-11-24] MEDS: INSULIN ASPART PER UNIT SC SCH ×2 (09:05→12:10)
[2021-11-24 09:49] LABS: Estimated Average Glucose 197 mg/dl; Hemoglobin A1C 8.5 % (4.5-5.6)
--- NOTE | 2021-11-24 09:51 | Neurology Consultation ---
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 Currently he is asymptomatic and feels back to baseline with no focal findings, meningeal signs, or encephalopathy. patient is on an 81 mg aspirin tablet daily plus warfarin Although this patient may have had a TIA despite his antiplatelet and anticoagulation medication, I think it is more likely that he had vaso spasm and a speech problem secondary to significant hypertension. This is likely the 3rd or 4th episode that he has had over the last 5 years of a similar nature. His risk factors for stroke hypertension, diabetes, and dyslipidemia as well as advancing age and sleep apnea. He was drinking significantly last time I saw him but apparently has cut is consumption way down to 1 drink every several months. Recommendations: 1. Control blood pressure as you are doing, aiming for a mean arterial pressure of 95-100. Avoid over-correction. 2. Control glucose. Hemoglobin A1c is pending. Glucose was elevated on admission. 3. Continue with current dose of atorvastatin. Total cholesterol is 128 and triglycerides 120. given his advanced age and low total cholesterol he would not be a high dose statin candidate 4. increase activity as able. 5. there is no need for additional neurologic testing or treatment at this time. Please contact me if I can be of further assistance on this case. Overall, I spent a total of 75 minutes with this case including review of records, review of MRI films, direct evaluation the patient at bedside and discussion of the case with the patient and RN at bedside, and Dr. Devlin, including differential diagnosis and treatment options. History of Present Illness Reason for Consultation: Patient is an 80-year-old, who I was asked to see at the request of Dr. Hughes, for neurologic consultation regarding TIA versus stroke. Requesting Physician: Dr. Hughes Attending Physician: Phani Devlin History of Present Illness this patient has a history of type 1 diabetes, hypertension, coronary disease, dyslipidemia, factor 5 Leiden, sleep apnea, and positive anticardiolipin antibodies. Patient was seen by Dr. Dial in March of 2012 in consultation for involuntary vocalizations. There were no motor tics and no other issues including no dementia or Tourette's diagnoses. These vocalizations were mostly nonspecific an MRI at that time was unremarkable. In October of 2017, patient had a 20 minutes episode word-finding difficulties. MRI of the brain showed some tiny old nonspecific small vessel ischemic changes but no stroke. In August of 2018, the patient was again seen by Dr. Dial for dysarthria, right- sided weakness, and some unsteady gait. This was felt to be a small posterior stroke or TIA but an MRI of the brain was not obtained at that time because of some abdominal surgical aspen. Patient did well. He has remained on 81 mg aspirin, clopidogrel 75 mg, and Coumadin. CT angiography at that time revealed stenosis of the petrous portion of the left internal carotid artery, the basilar artery, and the left vertebral artery at the C5-6 level. These were graded at 50-60%. I 1st saw the patient in July of 2019 for an episode of slurred speech and word-finding difficulty, headache, and increased balance issues. These resolved within 24 hours an MRI of the brain was unremarkable with no new stroke. Small vessel ischemia and atrophy was similar to the previous study. He had the vascular stenoses intracranially as before, as noted on CT angiography. He was already on aspirin, Plavix, and Coumadin. atorvastatin 40 mg was continued and his blood pressure on admission was markedly elevated. It was improved by discharge. He was drinking hard liquor almost daily the was counseled to decrease this. On November 22, around 1700 he went out to dinner new and sometime noted a moderate pressure bi occipitally. He also may have been slightly disoriented and by 0 he was noted to have word-finding difficulties. He knew what he wanted to say but could not get the word out. This persisted but he did not arrive to the emergency room until November 23 at 0055 He was fairly oriented and had no focal neurologic findings although he still had some speech difficulties. Temperature was 37.1, pulse 72 and regular, blood pressure 173/120, and O2 saturation 97%. CBC and Chem profile were largely unremarkable although his glucose was 286. CT scan of the head was unremarkable. CT angiography of the neck revealed plaque without significant stenosis. CT angiography of the head showed multifocal stenoses of multiple vessels similar to July of 2019. MRI of the brain showed no acute stroke. There was moderate generalized atrophy and mild old small vessel ischemic disease. The patient had no further events and his speech problem resolved yesterday. This morning he feels back to baseline with no headache, speech issue, weakness, numbness, balance problems, or vision issues. Patient tells me that he has reduced his alcohol intake to 1 drink every 2-3 months. Allergies Allergy/AdvReac Type Severity Reaction Status Date / Time clindamycin Allergy Intermediate Rash Verified 11/23/21 02:14 Sulfa (Sulfonamide Allergy Intermediate HIVES Verified 11/23/21 02:14 Antibiotics) lisinopril Allergy Unknown Unknown Verified 11/23/21 02:14 Penicillins Allergy Unknown Unknown Verified 10/30/21 11:28 Home Medications Medication Instructions Recorded Confirmed Type multivitamin 1 tab PO QDL #0 11/28/08 11/23/21 History docusate sodium 100 mg capsule 300 mg PO HS #0 cap 01/19/17 11/23/21 History magnesium 250 mg tablet 250 mg PO QDL #0 01/19/17 11/23/21 History fluticasone propionate 50 2 sprays INTNAS DAILY PRN 01/10/19 11/23/21 History mcg/actuation nasal spray,suspension lutein 20 mg capsule 20 mg PO QDL cap 01/10/19 11/23/21 History thiamine HCl (vitamin B1) 100 mg 100 mg PO QDL tab 01/10/19 11/23/21 History tablet aspirin 81 mg tablet,delayed 81 mg PO QAM 11/10/19 11/23/21 History release glucagon HCl 1 mg solution for 1 mg SUBCUT Q20M PRN #1 ea 06/18/20 11/23/21 Rx injection (Glucagon (HCl) Emergency Kit) cholecalciferol (vitamin D3) 50 50 mcg PO DAILY 07/31/20 11/23/21 History mcg (2,000 unit) capsule atorvastatin 40 mg tablet 40 mg PO HS #90 tab 12/02/20 11/23/21 Rx metoprolol tartrate 50 mg tablet 50 mg PO BID #180 tab 12/02/20 11/23/21 Rx warfarin 5 mg tablet 5 mg PO DAILY@1500 #90 tab 12/02/20 11/23/21 Rx finasteride 5 mg tablet 5 mg PO DAILY #90 tab 12/30/20 11/23/21 Rx doxazosin 4 mg tablet 4 mg PO QAM #90 tab 01/27/21 11/23/21 Rx folic acid 1 mg tablet See Rx Instructions .ROUTE 04/24/21 11/23/21 Rx .COMPLEX #90 tablet nitroglycerin 0.4 mg sublingual 0.4 mg SUBLINGUAL UD PRN #25 tab 05/21/21 11/23/21 Rx tablet (Nitrostat) levothyroxine 25 mcg tablet 25 mcg PO QAM #30 tab 07/03/21 11/23/21 Rx acetone (urine) test (Ketone Urine #50 ea 08/05/21 11/23/21 Rx Test) insulin lispro 100 unit/mL See Rx Instructions SUBCUT TID #15 08/05/21 11/23/21 Rx subcutaneous pen (Humalog KwikPen ml (U-100) Insulin) insulin glargine U-300 conc 300 40 unit SUBCUT DAILY #15 ml 09/10/21 11/23/21 Rx unit/mL (1.5 mL) subcutaneous pen (Toujeo SoloStar U-300 Insulin) isosorbide mononitrate 30 mg 30 mg PO QAM #90 tab 10/28/21 11/23/21 Rx tablet,extended release 24 hr pen needle, diabetic 31 gauge x #150 ea 10/30/21 11/23/21 Rx 1/4" (Comfort EZ Pen Garrison) azelastine 137 mcg (0.1 %) nasal 1 spray INTRANASAL BID #30 ml 11/11/21 11/23/21 Rx spray aerosol Patient History Medical History Acquired claw toe of both feet Acquired hallux valgus of both feet Anti-cardiolipin antibody positive Anticoagulant long-term use Ascending aorta dilation Back pain Background diabetic retinopathy associated with type 1 diabetes mellitus BPH loc w urin obs/LUTS CAD (coronary artery disease) Chronic fatigue disorder Complex sleep apnea syndrome CVA (cerebral vascular accident) Diabetes type 1, uncontrolled 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 Diabetic peripheral neuropathy associated with type 1 diabetes mellitus Dysphagia, oropharyngeal phase Factor V Leiden mutation GERD without esophagitis Glaucoma Gout History of diabetic ulcer of foot Hoarseness Hyperlipemia Hypertension Hypothyroidism Insomnia Kidney disease, chronic, stage II (mild, 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) Left inguinal hernia Leukopenia Microscopic hematuria NSTEMI (non-ST elevated myocardial infarction) Organic hypersomnia Pre-ulcerative corn or callous Primary hypercoagulable state Proteinuria Type 1 diabetes mellitus with complications Vertebral artery stenosis/occlusion Vitamin D deficiency Surgical History H/O hernia repair History of hand surgery History of hydrocelectomy History of surgical removal of ganglion cyst Hx of appendectomy S/P coronary artery stent placement Family History Mother , in her 60s of heart disease COPD (chronic obstructive pulmonary disease) Coronary heart disease Heart disease CHF Diabetes Hypertension Father , age 62 of melanoma Melanoma Heart disease Hypertension Brother Coronary heart disease Hypertension Myocardial infarction Son Diabetes Denies family history of Ovarian cancer Prostate cancer Breast cancer Lung cancer Colorectal cancer Stroke Social History Smoking Status: Never smoker Second Hand Exposure: No; Hx Alcohol Use: Yes Alcohol type: hard liquor Alcohol Intake Frequency: 4 or More x per/Week Alcohol Intake Frequency Comment: Two shots per night (or more) Hx Substance Use: No Preferred Language: Kinyarwanda Communication Ability: Impaired Visual Impairment: Limited Hearing Ability: Normal 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 Beliefs That Will Affect Care: None marital status: Current Living Situation: Spouse current occupational status: retired current occupation: Retired from [employer] age 40 to How many Children do You have: 2 Feels Safe at Home: Yes Childhood Exposure to Second-Hand Smoke: Yes caffeine: Yes Dental Care, Regularly: Yes Physical Activity Frequency: Does not Exercise Seatbelt Use: always Sunscreen Use: Yes Assistive Devices: None Review of Systems Constitutional: no fever, no fatigue and no weakness Eyes: no diplopia, no eye pain and no worsening vision Ear, Nose, Mouth, Throat: no ear pain, no tinnitus, no hearing loss, no dizziness, no snoring, no hoarseness and no dysphagia Respiratory: no cough and no dyspnea Cardiovascular: no chest pain, no palpitations and no lightheadedness Gastrointestinal: no abdominal pain, no nausea and no vomiting Musculoskeletal: no back pain, no neck pain, no radicular pain, no joint pain and no myalgia Integumentary: no rash and no lesions Neurologic: no gait abnormality, no localized weakness, no generalized weakness, no tingling, no numbness, no tremor(s), no abnormal movements, no headache(s), no abnormal speech, no confusion and no memory loss Psychiatric: no depression, no irritability, no anxiety, no difficulty concentrating, no confusion and no hallucinations Endocrine: no fatigue and no flushing Hematologic / Lymphatic: no easy bleeding and no easy bruising Allergy / Immunological: no urticaria and no problem reported Exam (Neuro) Physical Exam: The patient is right-handed. The patient is awake, alert, and attentive. Speech is normal without any aphasia or dysarthria. The patient can name objects, repeat phrases, and has normal spontaneous speech. Mentation and thought processes are intact, with orientation to person, place and time, and normal fund of knowledge. Attention and concentration are normal. Mood and affect are normal and appropriate. General appearance and grooming are normal. Short and long-term memory are intact. Pupils are 3 mm bilaterally and reactive to light. Extraocular eye muscles are intact without nystagmus. Visual acuity and visual cintron seem normal grossly to confrontation. There are no deficits to sensation in the face in all 3 distributions of the fifth cranial nerve bilaterally. Corneal reflexes are positive bilaterally. Facial strength and symmetry was normal bilaterally. Hearing seems normal bilaterally. Palate moves well without asymmetry. There is normal sternocle idomastoid and trapezius (shoulder shrug) strength bilaterally. Tongue is midline with good strength bilaterally. Neck has a full range of motion without discomfort. There are no cervical bruits bilaterally. There are no cranial or ocular bruits. Heart is without murmur. There is a regular rhythm and rate. Cervical, thoracic, and lumbar spine are nontender to palpation. Gait was not tested but stance sitting up in bed is quite normal. With outstretched arms there is no drift. There are no resting tremors. Patient had mild postural and action tremor bilaterally. There is no ataxia with finger to nose testing. There is good facility in the hands. No other abnormal involuntary movements are noted. Motor strength is 5/5 diffusely in the arms bilaterally including deltoids, biceps, triceps, brachioradialis, wrist flexors and extensors, dog barber, and intrinsic hand muscles. Motor strength is 5/5 diffusely in the legs bilaterally including hip flexors, quadriceps, hamstrings, gastrocnemius, tibialis anterior, tibialis posterior, and Peroneii muscles. Toe extensors are normal and there is good bulk in the extensor digitorum brevis muscles bilaterally. The limbs have good tone without rigidity or spasticity. There is no atrophy noted in the muscles. Muscle bulk is normal, there is no tenderness to palpation, no myotonia to percussion, and no fasciculations seen. Sensory examination is intact to touch and pin throughout all 4 limbs diffusely. Reflexes are 2/4 in the biceps, triceps, brachioradialis, and quadriceps tendons bilaterally. Achilles tendon reflexes were absent bilaterally. There is no clonus bilaterally. Toes are downgoing with plantar stimulation bilaterally. Peripheral pulses are present and of normal quality distally in all 4 limbs. There is no peripheral edema noted in the limbs. Results & Data ([facility]) Vital Signs (Past 12 Hours) Vital Signs Temp Pulse Pulse Resp BP Pulse Ox 11/24/21 07:30 76 11/24/21 07:21 36.4 C L 63 20 126/48 L 97 11/24/21 04:21 36.5 C 70 22 132/57 L 96 11/24/21 04:10 68 19 96 11/24/21 01:04 72 11/24/21 00:20 36.8 C 66 18 108/53 L 96 11/23/21 22:39 86 18 100 PG Care Time/CCT Total # of Minutes Spent Total Time Spent with Patient: Total time spent is greater than 50% in coordination of care (as documented) at patient's floor/unit and/or counseling patient: Coding Level of Care Code 17272 Initial Inpt Care Lvl 3 Diagnoses Expressive aphasia R47.01 Type 1 diabetes mellitus with complications E10.8 Hypertension I10 TIA (transient ischemic attack) G45.9 Time Spent (min) 75
[2021-11-24 11:47] LABS: iSTAT Creatinine 1.3 mg/dl (0.6-1.3); iSTAT Potassium 4.3 mmol/L (3.3-5.0)
[2021-11-24 11:48] LABS: iSTAT Hemoglobin 14.6 g/dl (14.0-18.0); iSTAT Ionized Calcium 1.12 mmol/l (1.12-1.32)
[2021-11-24] MEDS: THIAMINE HCL 100 MG TAB PO SCH (12:11)
[2021-11-24] MEDS ORDERED: STROKE PATIENT DISCHARGE STA (13:08)
--- NOTE | 2021-11-26 07:43 | Discharge Summary ---
Date of Service November 24, 2021 Admission HPI Per Admitting Provider Sheng Cagle is an 80yo right-hand dominant male with history of DM-I, HTN, HLP, CAD. He has history of prior CVA and several TIAs in the past. He is on ASA and Atorvastatin 40mg daily as well as Coumadin for history of h ypercoagulability secondary to Factor V Leiden. Patient presents with expressive aphasia. Is unable to articulate details of events prior to arrival. History obtained mainly from at bedside. She reports that patient had similar episode of expressive aphasia approximately 2-3 days ago. The episode lasted approximately 30 minutes - patient was unable to say appropriate words; was unable to say his 's name. His symptoms resolved completely after appx 30 minutes. This evening patient again developed expressive aphasia and slightly slurred speech. She thinks that the symptoms began around 17:30, but did admit that they could have started earlier because they don't talk a lot. Patient and his went out to dinner at [facility] to celebrate Father's Day. He had some difficulty speaking prior to dinner - was not answering questions appropriately. Symptoms continued through dinner. thought that symptoms may have become worse during dinner but thought that this may be secondary to the drink that he had. No focal numbness or weakness noted. Patient has some gait disturbance at baseline and states that this is unchanged. He has frequent falls at home but no head trauma reported. Patient presently with complaint of dull headache and mildly blurred vision. He is aware that he is unable to say the proper words. He is somewhat frustrated by this but mostly tired and wants to go to sleep. No additional complaints at this time. He denies fever, chills, neck pain, chest pain, cough, SOB, abdominal pain, nausea, vomiting, diarrhea or constipation. Principal Diagnosis dysarthria Discharge Exam General: patient resting comfortably, NAD, non-toxic in appearance Skin: warm, dry, intact, no rashes or lesions HEENT: NC/AT, PERRL, EOMI, anicteric sclera, conjunctiva without injection, external ear normal to inspection and nontender, nares patent, moist mucus membranes, dentition intact, no oropharyngeal lesions, neck supple, trachea midline, no LAD, no thyromegaly, no JVD Heart: +S1/S2, regular, no m/r/g Lungs: equal air entry bilaterally, no rales/rhonchi/wheezes Abd: +BS, soft, NT/ND, no masses/organomegaly/ascites Ext: warm, 2+ pulses in UE/LE bilaterally, no clubbing/cyanosis or edema Neuro: CN II - XII grossly intact, tongue midline, sensation to light touch intact with slight decrease on lateral right leg, MS 5/5 in UE/LE bilaterally, difficult performing finger to nose testing. Patient's speech improved Discharge Data Allergies Allergy/AdvReac Type Severity Reaction Status Date / Time clindamycin Allergy Intermediate Rash Verified 11/23/21 02:14 Sulfa (Sulfonamide Allergy Intermediate HIVES Verified 11/23/21 02:14 Antibiotics) lisinopril Allergy Unknown Unknown Verified 11/23/21 02:14 Penicillins Allergy Unknown Unknown Verified 10/30/21 11:28 Consultations 11/23/21 01:51 ED Decision to Admit Stat 11/23/21 04:52 Consult Neurology Routine Ordered Studies 11/23/21 00:55 CT angio head w con Urgent CT angio neck with con Urgent CT head/brain wo con Urgent 11/23/21 04:52 MR brain wo/w con Routine Hospital Course (1) Dysarthria: 80yo male with history of DM-I, HTN, HLP, CAD, prior CVA and TIAs pr esenting with several hours (possibly longer) of expressive aphasia. Patient is unable to name items, cannot state 's name, unable to answer some questions. Also with dull CHACON, mild blurry vision and elevated BP. Concern for TIA vs CVA Workup thus far with atherosclerotic plaques noted in carotids, aortic arch. ?embolization? -Admit to PCU -Neuro checks, NIHSS per protocol -Dysphagia screening, aspiration precautions -Check MRI brain with/without contrast: negative -Check 2D echocardiogramL negative: -Continue Atorvastatin 40mg po daily -continue ASA. -Labetalol 10mg IV q 4 hours as needed for HTN >180/110 -Glycemic control -Neurology consultation appreciated Appreciate input from Neuro: Perhaps vasospasm from episode of uncontrolled hypertension. Thankfully, his neuro imaging is negative. Reviewing his medications, patient is taking short acting metoprolol. In case patient is perhaps having rebound hypertension, will transition to metoprolol succinate. However his daily dose will be decreased to 50 mg daily. Will trial another vasodilator at a lower dose and monitor how patient tolerates it. 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 Hyperglycemic with EPH=393 presently. Last RekI9H=6.4 on 10/28/21 -Will administer IV insulin now - 8u -Lantus 20u daily -ISS -Goal blood sugar 140-180 for now -Pharmacy Glycemic management consultation appreciated (3) Hypertension: Elevated blood pressure in setting of likely TIA/CVA -Hold oral antihypertensives to allow for permissive HTN - Isosorbide mononitrate, Metoprolol As stated above: placed on meotprolol succinate, isosorbide, and added amlodipine. Gave coupon from [employer] for metoprolol succinate. (4) Dyslipidemia: Chronic. On Atorvastatin 40mg po daily -Check lipid panel -Continue Atorvastatin (5) Factor V Leiden mutation: Patient with prior VTE, h/o Factor V Leiden. On Coumadin anticoagulation with INR of 2.8 -Hold Coumadin for now -Repeat INR in AM (6) BPH (benign prostatic hyperplasia): Chronic -Continue Doxazosin and Finasteride -Bladder scan and straight cath as needed for urinary retention -Monitor I/Os (7) Alcohol abuse: Patient denies drinking alcohol. Has history of Etoh use. 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 Patient hypoxic in ER requiring supplemental O2 -CPAP qHS F/E/N - [place]. Electrolytes WNL. Type I DM diet as tolerated with aspiration precautions and dysphagia screening PRN Ppx - SCDs Code -Full Total Time Total Time Spent Total Time Spent (In Minutes): 35 Discharge Plan Discharge Items Patient Disposition: Home - Self-Care Reason For Visit: DYSARTHRIA, ?TIA/CVA Discharge Diagnosis: DYSARTHRIA Activity: Resume your previous activity Non-emergency contact: Primary Care Provider Call non-emergency contact if: you have any medication questions Follow-up/Referrals: Sheng Sherman MD [Primary Care Provider] - (Follow up appointment scheduled with Annie Bradley PA-C.) Annie Bradley PA-C [Physician Headline Writer] - 12/01/21 2:00 pm (Please follow up with Annie Bradley PA-C on Wednesday12/01/21 at 2:00 pm. Please arrive to the office at 1:45 pm for your appointment. If you are unable to keep this appointment, please call the office to reschedule at [phone].) Diet: Carb Count or DM1 Addtl Attending Provider Instructions: Risk Factors for Stroke: You can reduce your chances of stroke by working with your medical provider to adopt a healthy lifestyle. Some specific ways to lower your chance of stroke are: * If you are a smoker, now is the time to stop smoking cigarettes * If you are diabetic, improve the control of your blood sugars * Avoid excessive amounts of alcohol * Control high blood pressure * Lose weight if you are overweight * Be sure to lead an active lifestyle * Eat a healthy diet low in salt, cholesterol and fat You should know about other risk factors for stroke that you are unable to control. These include: * Age 55 years or older * Male gender * Certain racial groups: , or / * Family History of Stroke, Mini stroke or Heart Attack * Sickle Cell Disease Follow Up: It is important for you to keep your follow up appointments with your medical provider. Who to Call and When: Medical Emergencies: Call 911 immediately if you experience any of the following warning signs and symptoms of Stroke: * Sudden numbness or weakness of the face, arm or leg, especially on one side of the body * Sudden confusion, trouble speaking or understanding * Sudden trouble seeing in one or both eyes * Sudden trouble walking, dizziness, loss of balance or coordination * Sudden severe headache with no cause Do not delay calling 911 if you experience any warning signs or symptoms of a stroke. Delay in seeking medical attention may affect what treatments can be given to you. . Recommend to control blood pressure: will switch metoprolol tartrate to long acting metoprolol, but decrease dose to 50mg in a day. Will add amlodipine 2.5 mg to your blood pressure regimen. Will recommend a followup in 1- 2 weeks with PCP. Pending Studies at Discharge: No Stand-Alone Forms: My [facility], Smoking Cessation Medications and DC Order Prescriptions: New metoprolol succinate 50 mg tablet extended release 24 hr 50 mg PO DAILY Qty: 30 RF: 0 amlodipine 2.5 mg tablet 2.5 mg PO PM Qty: 30 RF: 0 Continued multivitamin Tablet 1 tab PO QDL Qty: 0 RF: 0 docusate sodium 100 mg Capsule 300 mg PO HS Qty: 0 RF: 0 magnesium 250 mg Tablet 250 mg PO QDL Qty: 0 RF: 0 Glucagon (HCl) Emergency Kit 1 mg recon soln 1 mg subcut Q20M PRN (Reason: hypoglycemia) Qty: 1 RF: 1 doxazosin 4 mg tablet 4 mg PO QAM Qty: 90 RF: 3 folic acid 1 mg tablet See Rx Instructions .ROUTE .COMPLEX Qty: 90 RF: 3 nitroglycerin [Nitrostat] 0.4 mg tablet, sublingual 0.4 mg sublingual UD PRN (Reason: Chest Pain) Qty: 25 RF: 3 levothyroxine 25 mcg tablet 25 mcg PO QAM Qty: 30 RF: 5 isosorbide mononitrate 30 mg tablet extended release 24 hr 30 mg PO QAM Qty: 90 RF: 3 Toujeo SoloStar U-300 Insulin 300 unit/mL (1.5 mL) insulin pen 40 unit subcut DAILY Qty: 15 RF: 2 aspirin 81 mg tablet,delayed release (DR/EC) 81 mg PO QAM RF: 0 (DME) Ketone Urine Test Strip See Rx Instructions .MEDSUPPLY Qty: 50 RF: 2 insulin lispro [Humalog KwikPen Insulin] 100 unit/mL insulin pen See Rx Instructions subcut TID Qty: 15 RF: 5 cholecalciferol (vitamin D3) 50 mcg (2,000 unit) capsule 50 mcg PO DAILY RF: 0 azelastine 137 mcg (0.1 %) aerosol,spray 1 spray intranasal BID Qty: 30 RF: 11 lutein 20 mg capsule 20 mg PO QDL RF: 0 thiamine HCl (vitamin B1) 100 mg tablet 100 mg PO QDL RF: 0 fluticasone propionate 50 mcg/actuation spray,suspension 2 sprays INTNAS DAILY PRN (Reason: Nasal Congestion) RF: 0 finasteride 5 mg tablet 5 mg PO DAILY Qty: 90 RF: 3 warfarin 5 mg tablet 5 mg PO DAILY@1500 Qty: 90 RF: 3 atorvastatin 40 mg tablet 40 mg PO HS Qty: 90 RF: 3 (DME) pen needle, diabetic [Comfort EZ Pen [place]] 31 gauge x 1/4" needle See Rx Instructions .Route Qty: 150 RF: 5 Discontinued metoprolol tartrate 50 mg tablet 50 mg PO BID Qty: 180 RF: 3 Discharge Orders: Discharge Order (Routine); Ordered 11/24/21 Ordered By: Phani Henriquez/Other Patient Handouts: Managing Type 1 Diabetes Admission Data Admit Date/Time: 11/23/21 02:38 Attending Provider: Phani Devlin Admit Provider: Suze Hughes Primary Care Provider: Sheng Sherman Other Providers: Suze Hughes ; Lavell Dial Other Interventions: Discharge Summary Assessment (RN) Last Done: 11/24/21 13:40 Coding Level of Care Code 00031 OBS Care - Discharge Diagnoses Dysarthria R47.1 Type 1 diabetes mellitus with complications E10.8 Hypertension I10 Hypertension type: unspecified Dyslipidemia E78.5 Factor V Leiden mutation D68.51 BPH (benign prostatic hyperplasia) N40.0 Alcohol abuse F10.10 Kidney disease, chronic, stage II (mild, 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
== END 2021-11-24 14:20 | disposition home or self-care (01) ==
LOC: ED 00:44 → SUATTDRO 02:38 → INTOOBSV 02:38 → 2S 02:38

== ENCOUNTER 2022-12-02 21:43 | Inpatient (IN) ==
[2022-12-02] MEDS ORDERED: METOPROLOL TARTRATE 1 MG/ML VIAL IV STA (22:12)
[2022-12-02] MEDS ORDERED: SODIUM CHLORIDE 0.9% 1000ML 500 ML IV ONE ×2 (22:23→23:10)
--- NOTE | 2022-12-02 22:23 | Emergency Department Note ---
Impression & Plan SOB (shortness of breath), Atrial fibrillation with rapid ventricular response, Acute electrocardiogram changes, Acute hyperglycemia, Elevated troponin ED Provider Note NAME: RADHA NINA AGE: 82 SEX: M : 1940 ARRIVES VIA: Ambulance INFORMANT: [Patient][] ED PROVIDER(S): [Jalen Perla MD] CHIEF COMPLAINT: Short of breath HISTORY OF PRESENT ILLNESS: The patient is an 82-year-old male who states that he noticed some shortness of breath with exertion about a week or so ago. In the last 3 days, he is short of breath even without exertion. He has no chest pain but he has noticed an increased cough. He has also noticed some discomfort in the left arm--this arm discomfort was first noticed today. No fever. He has been dizzy and weak and actually stumbled and fell bruising in the right shoulder earlier today. He did not strike his head, there was no loss of consciousness. The patient is on anticoagulation for A-fib, Coumadin. He states that he takes metoprolol for rate control. There has been no abdominal pain. He does not have any diagnosed lung disease. He states he has had several heart attacks in the past. PMHx/PSHx: See Below SOCIAL HISTORY: See Below. PHYSICAL EXAM: GENERAL: Patient is in no acute distress. HEENT: No acute trauma, normocephalic atraumatic, mucous membranes dry, no nasal congestion. NECK: No stridor, no adenopathy, no meningismus, trachea is midline. LUNGS: Clear to auscultation bilaterally, no wheeze, no rhonchi, breath sounds equal. HEART: Slight systolic murmur, irregular rhythm, mildly tachycardic. ABDOMEN: Soft, nontender, bowel sounds positive, no peritonitis. EXTREMITIES: No cyanosis, mild bilateral pedal edema, full range of motion of all the joints without pain or difficulty. There is a contusion to the right lateral shoulder consistent with the fall earlier. NEUROLOGIC: Oriented x 3, no acute motor or sensory deficits, no focal weakness. SKIN: No rash, no jaundice, no diaphoresis. DIFFERENTIAL DIAGNOSIS: [place], anemia, A-fib, electrolyte imbalance, CHF, viral illness, pneumonia, among others. EMERGENCY DEPARTMENT COURSE/PROCEDURES: Prior/Outside records reviewed: EMS notes ECG per my interpretation: Indication was shortness of breath. The ECG shows a rapid atrial fibrillation with a rate of 114. There is an old anterior infarct. There is an old inferior infarct. There are ST depressions with some T wave inversion in the lateral leads. LVH is present. No PVCs but the QTc is 465. Compared to an ECG from 23 November 2021, significant changes have occurred. Repeat ECG my interpretation: Indication was shortness of breath. The ECG shows atrial fibrillation with a rate of 106. There is some ST depression in the lateral leads. There is an old anterior and potential old inferior infarct not ed. There is no concerning ST elevation. QTc is 464. Compared to an ECG from earlier today, the T wave changes appear improved. Continuous Cardiac Monitoring per my interpretation: An order was placed for continuous cardiac monitoring. The monitor shows a rate of 118 with rapid atrial fibrillation. Critical Care Note: I have personally spent 51 minutes of critical care time in the direct management of this patient. This includes bedside care, interpretation of diagnostic studies, and testing, discussion with consultants, patient, and family members, and other required patient management activities. This 51 minutes is in excess of all separately billable procedures. MEDICAL DECISION MAKING: There is no leukocytosis. The patient is not anemic. There is a normal platelet count. INR is therapeutic at 2, consistent with his Coumadin use. Sodium was low at 131, likely from his sugar value of 549. Renal panel testing does show elevation to the creatinine at 1.58. The patient has some known renal insufficiency. AST was slightly elevated, remaining liver enzymes were unremarkable. BNP was elevated however, the patient's lungs were clear by exam. Despite the BNP elevation, CHF seemed unlikely. ECG showed a rapid atrial fibrillation with T wave inversion and ST depression laterally. These changes were new compared to a recent ECG. Cardiac troponin was elevated at 387. This troponin elevation could be consistent with mismatch from his shortness of breath and rapid rate versus cardiac injury. TSH was slightly elevated, the T4 was normal. Urinalysis did not show infection. Respiratory bio fire was completely negative. Chest film per my review showed some chronic change, no CHF or pneumothorax, no pneumonia. Brain CT results are pending. On exam, the patient appeared somewhat dehydrated. He was tachycardic with an irregular rhythm. The patient received 1 L of IV saline for hydration. He was given 10 units of IV insulin. He was given 5 mg of IV Lopressor and eventually was given a bolus of IV diltiazem and placed on a diltiazem drip. He was given oral aspirin. I spoke with Dr. Pack of cardiology. I did send him a copy of the patient's ECGs by Guicho palomino. He was able to review the ECGs. The patient does not require any emergent cardiac intervention this evening. He will be rate controlled with diltiazem. The troponins will be trended. Has high sugar will be addressed. I spoke with the patient and case management, the patient is aware of his findings and the need to stay in the hospital. The on-call hospitalist was consulted. Of note, the patient's blood pressure is currently adequate. His heart rate is now in the 90s, he has done well with the diltiazem drip. His blood sugar on repeat has decreased, the value is now in the upper 300s. His ECG findings have improved now that his rate has slowed. DISPOSITION: Patient's presentation and findings warrant a hospital stay and further cardiac work-up. 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) Left inguinal hernia Leukopenia Organic hypersomnia Primary hypercoagulable state Proteinuria Type 1 diabetes mellitus with complications Vitamin D deficiency Surgical History H/O hernia repair History of hand surgery History of hydrocelectomy History of surgical removal of ganglion cyst Hx of appendectomy S/P coronary artery stent placement Family History Mother COPD (chronic obstructive pulmonary disease) Coronary heart disease Heart disease Diabetes Hypertension Father Melanoma Heart disease Hypertension Brother Coronary heart disease Hypertension Myocardial infarction Son Diabetes Denies family history of Ovarian cancer Prostate cancer Breast cancer Lung cancer Colorectal cancer Stroke Social History Smoking Status: Never smoker Second Hand Exposure: No; Do You Dip or Chew Tobacco: No; Hx Alcohol Use: Yes Alcohol type: hard liquor Alcohol Intake Frequency: 4 or More x per/Week Alcohol Intake Frequency Comment: Two shots per night (or more) Hx Substance Use: No Preferred Language: Danish Communication Ability: Impaired Communication Ability Comment: expressive and receptive aphasia Visual Impairment: Limited Hearing Ability: Normal Survey Operations Director Required: No Beliefs That Will Affect Care: None marital status: Current Living Situation: Spouse current occupational status: retired current occupation: Retired from [employer] age 40 to How many Children do You have: 2 Feels Safe at Home: Yes Childhood Exposure to Second-Hand Smoke: Yes caffeine: Yes Dental Care, Regularly: Yes Physical Activity Frequency: Does not Exercise Seatbelt Use: always Sunscreen Use: Yes Assistive Devices: None and Glasses Allergies Allergies Allergy/AdvReac Type Severity Reaction Status Date / Time clindamycin Allergy Intermediate Rash Verified 11/25/22 13:05 Sulfa (Sulfonamide Allergy Intermediate HIVES Verified 11/25/22 13:05 Antibiotics) lisinopril Allergy Unknown Unknown Verified 11/25/22 13:05 Penicillins Allergy Unknown Unknown Verified 11/25/22 13:05 Home Meds Home Medications Medication Instructions Recorded Confirmed multivitamin 1 tab PO QDL ##0 11/28/08 12/02/22 docusate sodium 100 mg capsule 300 mg PO HS #0 caps 01/19/17 12/02/22 magnesium 250 mg tablet 250 mg PO QDL ##0 01/19/17 12/02/22 fluticasone propionate 50 2 sprays intranasal DAILY PRN 01/10/19 12/02/22 mcg/actuation nasal Nasal Congestion spray,suspension lutein 20 mg capsule 20 mg PO QDL 01/10/19 12/02/22 thiamine HCl (vitamin B1) 100 mg 100 mg PO QDL 01/10/19 12/02/22 tablet aspirin 81 mg tablet,delayed 81 mg PO QAM 11/10/19 12/02/22 release cholecalciferol (vitamin D3) 50 50 mcg PO DAILY 07/31/20 12/02/22 mcg (2,000 unit) capsule polyethylene glycol 3350 17 17 g PO DAILY 12/01/21 12/02/22 gram/dose oral powder (Miralax) insulin glargine U-300 conc 300 28 unit subcut DAILY 11/25/22 12/02/22 unit/mL (1.5 mL) subcutaneous pen (Toujeo SoloStar U-300 Insulin) insulin lispro 100 unit/mL See Rx Instructions subcut TID 11/25/22 12/02/22 subcutaneous pen (Humalog KwikPen (U-100) Insulin) isosorbide mononitrate 30 mg 30 mg PO DAILY 11/25/22 12/02/22 tablet,extended release 24 hr folic acid 1 mg tablet 1 mg PO DAILY 12/02/22 12/02/22 Previous Rx's Medication Instructions Recorded acetone (urine) test (Ketone Urine #50 ea 08/05/21 Test strips) FreeStyle Anna 2 Sensor (flash #2 ea 11/27/21 glucose sensor) amlodipine 2.5 mg tablet 2.5 mg PO PM #90 tabs 05/14/22 atorvastatin 40 mg tablet 40 mg PO HS #90 tabs 05/18/22 doxazosin 4 mg tablet 4 mg PO QAM #90 tabs 05/18/22 levothyroxine 25 mcg tablet 25 mcg PO QAM #90 tabs 05/18/22 warfarin 5 mg tablet 5 mg PO DAILY@1500 #100 tabs 05/18/22 pen needle, diabetic 31 gauge x #150 ea 05/25/2206/10" (Comfort EZ [place]) metoprolol tartrate 25 mg tablet 25 mg PO BID #180 tabs 07/09/22 azelastine 137 mcg (0.1 %) nasal 1 spray intranasal BID #90 mL 08/20/22 spray aerosol nitroglycerin 0.4 mg sublingual 0.4 mg sublingual UD PRN Chest 09/02/22 tablet (Nitrostat) Pain #25 tabs finasteride 5 mg tablet 5 mg PO DAILY #10 tabs 09/22/22 glucagon HCl 1 mg solution for 1 mg subcut Q20M PRN hypoglycemia 11/25/22 injection (Glucagon (HCl) #1 ea Emergency Kit) Results & Data (ED) Vital Signs Vital Signs - 24 hr 12/02/22 21:55 12/02/22 21:50 12/02/22 22:08 Temperature 37.2 C Temperature Source Temporal Artery Scan Pulse Rate 110 H 127 H 109 H Pulse Rate from SpO2 Sensor Respiratory Rate 18 17 Respiratory Effort / Characteristics Non-Labored Spontaneous Respiratory Depth Normal Respiratory Pattern Regular Blood Pressure 163/95 H Blood Pressure Mean 117 Pulse Oximetry 96 96 Oxygen Delivery Method Room Air Room Air Sepsis Recent Fever Within 48 Hours No Sepsis New/Unexplained Change in Mental Status No Sepsis Action Taken by Nursing No Action Required 12/02/22 22:15 12/02/22 21:54 12/02/22 21:56 Temperature Temperature Source Pulse Rate 122 H 127 H 128 H Pulse Rate from SpO2 Sensor 127 H Respiratory Rate 19 18 Respiratory Effort / Characteristics Respiratory Depth Respiratory Pattern Blood Pressure 105/74 Blood Pressure Mean Pulse Oximetry 95 Oxygen Delivery Method Sepsis Recent Fever Within 48 Hours Sepsis New/Unexplained Change in Mental Status Sepsis Action Taken by Nursing 12/02/22 21:56 12/02/22 22:00 12/02/22 22:15 Temperature Temperature Source Pulse Rate 126 H Pulse Rate from SpO2 Sensor 123 H Respiratory Rate 18 Respiratory Effort / Characteristics Respiratory Depth Respiratory Pattern Blood Pressure 163/95 H 105/74 Blood Pressure Mean 113 94 Pulse Oximetry 94 Oxygen Delivery Method Sepsis Recent Fever Within 48 Hours Sepsis New/Unexplained Change in Mental Status Sepsis Action Taken by Nursing 12/02/22 22:15 12/02/22 22:30 12/02/22 22:30 Temperature Temperature Source Pulse Rate 116 H 106 H Pulse Rate from SpO2 Sensor 120 H 109 H Respiratory Rate 22 17 Respiratory Effort / Characteristics Respiratory Depth Respiratory Pattern Blood Pressure 155/101 H Blood Pressure Mean 109 Pulse Oximetry 96 94 Oxygen Delivery Method Sepsis Recent Fever Within 48 Hours Sepsis New/Unexplained Change in Mental Status Sepsis Action Taken by Nursing 12/02/22 23:00 12/02/22 23:01 12/02/22 23:01 Temperature Temperature Source Pulse Rate 108 H 122 H Pulse Rate from SpO2 Sensor 110 H 132 H Respiratory Rate 19 24 Respiratory Effort / Characteristics Respiratory Depth Respiratory Pattern Blood Pressure Blood Pressure Mean 118 Pulse Oximetry 93 96 Oxygen Delivery Method Sepsis Recent Fever Within 48 Hours Sepsis New/Unexplained Change in Mental Status Sepsis Action Taken by Nursing 12/02/22 23:21 12/02/22 23:21 12/02/22 23:24 Temperature Temperature Source Pulse Rate Pulse Rate from SpO2 Sensor 108 H 119 H Respiratory Rate Respiratory Effort / Characteristics Respiratory Depth Respiratory Pattern Blood Pressure 136/111 H Blood Pressure Mean 114 Pulse Oximetry 92 95 Oxygen Delivery Method Sepsis Recent Fever Within 48 Hours Sepsis New/Unexplained Change in Mental Status Sepsis Action Taken by Nursing 12/02/22 23:24 12/02/22 23:30 12/02/22 23:30 Temperature Temperature Source Pulse Rate Pulse Rate from SpO2 Sensor 101 H Respiratory Rate Respiratory Effort / Characteristics Respiratory Depth Respiratory Pattern Blood Pressure 173/97 H 127/104 H Blood Pressure Mean 116 116 Pulse Oximetry 95 Oxygen Delivery Method Sepsis Recent Fever Within 48 Hours Sepsis New/Unexplained Change in Mental Status Sepsis Action Taken by Nursing 12/02/22 23:38 12/02/22 23:38 12/02/22 23:57 Temperature Temperature Source Pulse Rate 93 H 97 H Pulse Rate from SpO2 Sensor 98 H 92 H Respiratory Rate 20 21 Respiratory Effort / Characteristics Respiratory Depth Respiratory Pattern Blood Pressure 163/84 H Blood Pressure Mean 109 Pulse Oximetry 94 95 Oxygen Delivery Method Sepsis Recent Fever Within 48 Hours Sepsis New/Unexplained Change in Mental Status Sepsis Action Taken by Nursing 12/02/22 23:57 12/03/22 00:00 12/03/22 00:00 Temperature Temperature Source Pulse Rate 97 H Pulse Rate from SpO2 Sensor 93 H Respiratory Rate 22 Respiratory Effort / Characteristics Respiratory Depth Respiratory Pattern Blood Pressure 149/89 H 175/85 H Blood Pressure Mean 124 100 Pulse Oximetry 94 Oxygen Delivery Method Sepsis Recent Fever Within 48 Hours Sepsis New/Unexplained Change in Mental Status Sepsis Action Taken by Care Home Medications Current Medication List: was personally reviewed by me Laboratory Data Attestation: I reviewed the patient's lab results. 12/02/22 22:00 12/02/22 22:00 Lab Results 12/02/22 12/02/22 12/02/22 Range/Units 22:00 22:00 22:00 WBC 9.00 (4.8-10.8) K/ul RBC 4.95 (4.70-6.10) M/uL Hgb 16.5 (14.0-18.0) g/dl Hct 45.6 (42.0-52.0) % MCV 92.1 (80.0-100.0) fL MCH 33.3 (25.0-34.0) pg MCHC 36.2 H (32.0-36.0) g/dL RDW Std Deviation 41.5 (36.4-46.3) fL RDW Coeff of Mary 12.4 (11.5-14.5) % Plt Count 168 (130-400) K/uL MPV 11.1 (9.4-12.4) fL Immature Gran % (Auto) 0.6 % Neut % (Auto) 79.8 % Lymph % (Auto) 12.4 % Mineral % (Auto) 5.9 % Eos % (Auto) 0.9 % Baso % (Auto) 0.4 % Neut # (Auto) 7.18 H (1.40-6.50) K/uL Lymph # (Auto) 1.12 L (1.2-3.4) K/uL Mineral # (Auto) 0.53 (0.11-0.59) K/uL Eos # (Auto) 0.08 (0-0.50) K/uL Baso # (Auto) 0.04 (0-0.2) K/uL Immature Gran # (Auto) 0.05 (0.01-0.20) K/uL PT (9.0-12.0) Seconds INR (0.9-1.1) APTT (21.0-31.0) Seconds PTT Ratio Sodium 131 L (136-145) mmol/L Potassium TNP Chloride 97 L (98-107) mmol/L Carbon Dioxide 24 (21-32) mmol/L Anion Gap 10 (3-11) BUN 30 H (6-23) mg/dl Creatinine 1.58 H (0.6-1.4) mg/dl Est Cr Clr Drug Dosing 39.6 ml/min Est GFR ( Amer) 46.5 ml/min Est GFR (Non-Af Amer) 40.1 ml/min BUN/Creatinine Ratio 19.0 (10-20) Glucose 549 H* (70-99(Fasting)) mg/dl POC Glucose (70-99) mg/dl Calcium 9.7 (8.6-10.3) mg/dl Magnesium 2.4 (1.7-2.4) mg/dl Total Bilirubin 0.6 (0.2-1.0) mg/dl AST TNP ALT 47 (7-52) U/L Alkaline Phosphatase 85 (34-104) U/L Troponin I High Sens 387.1 H* (0-20) pg/ml B-Natriuretic Peptide (0-100) pg/ml Total Protein 7.8 (6.0-8.3) gm/dl Albumin 4.9 (3.4-5.0) gm/dl Globulin 2.9 (2.5-4.0) gm/dl Albumin/Globulin Ratio 1.7 (0.9-2) TSH 5.353 H (0.300-4.500) uIu/ml Free T4 0.95 (0.61-1.60) ng/dl Urine Color Urine Appearance (Clear) Urine pH (4.5-7.5) Ur Specific [place] (1.000-1.030) Urine Protein (Negative) Urine Glucose (UA) (Negative) Urine Ketones (Negative) Urine Blood (Negative) Urine Nitrite (Negative) Urine Bilirubin (Negative) Urine Urobilinogen (Negative) Ur Leukocyte Esterase (Negative) Urine WBC (Auto) (0-5) /hpf Urine RBC (Auto) (0-4) /hpf U Hyaline Cast (Auto) (0-5) /lpf U Epithel Cells (Auto) (0-5) /lpf Urine Bacteria (Auto) (Negative) Adenovirus (PCR) (NotDetected) B. pertussis DNA (PCR) (NotDetected) B.parapertussis DNA PCR (NotDetected) C. pneumoniae DNA (PCR) (NotDetected) Coronavirus OC43 (PCR) (NotDetected) Coronavirus HKU1 (PCR) (NotDetected) Coronavirus 229E (PCR) (NotDetected) SARS-CoV-2 (PCR) (NotDetected) Coronavirus NL63 (PCR) (NotDetected) Human Metapneumovir PCR (NotDetected) Influenza Type A (PCR) (NotDetected) Influenza Type B (PCR) (NotDetected) M. pneumoniae (PCR) (NotDetected) Parainfluenza 1 (PCR) (NotDetected) Parainfluenza 2 (PCR) (NotDetected) Parainfluenza 3 (PCR) (NotDetected) Parainfluenza 4 (PCR) (NotDetected) RSV (PCR) (NotDetected) Entero/Rhino (PCR) (NotDetected) 12/02/22 12/02/22 12/02/22 Range/Units 22:00 22:00 22:00 WBC (4.8-10.8) K/ul RBC (4.70-6.10) M/uL Hgb (14.0-18.0) g/dl Hct (42.0-52.0) % MCV (80.0-100.0) fL MCH (25.0-34.0) pg MCHC (32.0-36.0) g/dL RDW Std Deviation (36.4-46.3) fL RDW Coeff of Mary (11.5-14.5) % Plt Count (130-400) K/uL MPV (9.4-12.4) fL Immature Gran % (Auto) % Neut % (Auto) % Lymph % (Auto) % Mineral % (Auto) % Eos % (Auto) % Baso % (Auto) % Neut # (Auto) (1.40-6.50) K/uL Lymph # (Auto) (1.2-3.4) K/uL Mineral # (Auto) (0.11-0.59) K/uL Eos # (Auto) (0-0.50) K/uL Baso # (Auto) (0-0.2) K/uL Immature Gran # (Auto) (0.01-0.20) K/uL PT 21.2 H (9.0-12.0) Seconds INR 2.0 H (0.9-1.1) APTT 35.4 H (21.0-31.0) Seconds PTT Ratio 1.3 Sodium (136-145) mmol/L Potassium Chloride (98-107) mmol/L Carbon Dioxide (21-32) mmol/L Anion Gap (3-11) BUN (6-23) mg/dl Creatinine (0.6-1.4) mg/dl Est Cr Clr Drug Dosing ml/min Est GFR ( Amer) ml/min Est GFR (Non-Af Amer) ml/min BUN/Creatinine Ratio (10-20) Glucose (70-99(Fasting)) mg/dl POC Glucose (70-99) mg/dl Calcium (8.6-10.3) mg/dl Magnesium (1.7-2.4) mg/dl Total Bilirubin (0.2-1.0) mg/dl AST ALT (7-52) U/L Alkaline Phosphatase (34-104) U/L Troponin I High Sens (0-20) pg/ml B-Natriuretic Peptide 236 H (0-100) pg/ml Total Protein (6.0-8.3) gm/dl Albumin (3.4-5.0) gm/dl Globulin (2.5-4.0) gm/dl Albumin/Globulin Ratio (0.9-2) TSH (0.300-4.500) uIu/ml Free T4 (0.61-1.60) ng/dl Urine Color Urine Appearance (Clear) Urine pH (4.5-7.5) Ur Specific [place] (1.000-1.030) Urine Protein (Negative) Urine Glucose (UA) (Negative) Urine Ketones (Negative) Urine Blood (Negative) Urine Nitrite (Negative) Urine Bilirubin (Negative) Urine Urobilinogen (Negative) Ur Leukocyte Esterase (Negative) Urine WBC (Auto) (0-5) /hpf Urine RBC (Auto) (0-4) /hpf U Hyaline Cast (Auto) (0-5) /lpf U Epithel Cells (Auto) (0-5) /lpf Urine Bacteria (Auto) (Negative) Adenovirus (PCR) Not Detected (NotDetected) B. pertussis DNA (PCR) Not Detected (NotDetected) B.parapertussis DNA PCR Not Detected (NotDetected) C. pneumoniae DNA (PCR) Not Detected (NotDetected) Coronavirus OC43 (PCR) Not Detected (NotDetected) Coronavirus HKU1 (PCR) Not Detected (NotDetected) Coronavirus 229E (PCR) Not Detected (NotDetected) SARS-CoV-2 (PCR) Not Detected (NotDetected) Coronavirus NL63 (PCR) Not Detected (NotDetected) Human Metapneumovir PCR Not Detected (NotDetected) Influenza Type A (PCR) Not Detected (NotDetected) Influenza Type B (PCR) Not Detected (NotDetected) M. pneumoniae (PCR) Not Detected (NotDetected) Parainfluenza 1 (PCR) Not Detected (NotDetected) Parainfluenza 2 (PCR) Not Detected (NotDetected) Parainfluenza 3 (PCR) Not Detected (NotDetected) Parainfluenza 4 (PCR) Not Detected (NotDetected) RSV (PCR) Not Detected (NotDetected) Entero/Rhino (PCR) Not Detected (NotDetected) 12/02/22 12/02/22 12/03/22 Range/Units 22:06 23:58 00:33 WBC (4.8-10.8) K/ul RBC (4.70-6.10) M/uL Hgb (14.0-18.0) g/dl Hct (42.0-52.0) % MCV (80.0-100.0) fL MCH (25.0-34.0) pg MCHC (32.0-36.0) g/dL RDW Std Deviation (36.4-46.3) fL RDW Coeff of Mary (11.5-14.5) % Plt Count (130-400) K/uL MPV (9.4-12.4) fL Immature Gran % (Auto) % Neut % (Auto) % Lymph % (Auto) % Mineral % (Auto) % Eos % (Auto) % Baso % (Auto) % Neut # (Auto) (1.40-6.50) K/uL Lymph # (Auto) (1.2-3.4) K/uL Mineral # (Auto) (0.11-0.59) K/uL Eos # (Auto) (0-0.50) K/uL Baso # (Auto) (0-0.2) K/uL Immature Gran # (Auto) (0.01-0.20) K/uL PT (9.0-12.0) Seconds INR (0.9-1.1) APTT (21.0-31.0) Seconds PTT Ratio Sodium (136-145) mmol/L Potassium 4.2 Chloride (98-107) mmol/L Carbon Dioxide (21-32) mmol/L Anion Gap (3-11) BUN (6-23) mg/dl Creatinine (0.6-1.4) mg/dl Est Cr Clr Drug Dosing ml/min Est GFR ( Amer) ml/min Est GFR (Non-Af Amer) ml/min BUN/Creatinine Ratio (10-20) Glucose (70-99(Fasting)) mg/dl POC Glucose 399 H* (70-99) mg/dl Calcium (8.6-10.3) mg/dl Magnesium (1.7-2.4) mg/dl Total Bilirubin (0.2-1.0) mg/dl AST 80 H ALT (7-52) U/L Alkaline Phosphatase (34-104) U/L Troponin I High Sens (0-20) pg/ml B-Natriuretic Peptide (0-100) pg/ml Total Protein (6.0-8.3) gm/dl Albumin (3.4-5.0) gm/dl Globulin (2.5-4.0) gm/dl Albumin/Globulin Ratio (0.9-2) TSH (0.300-4.500) uIu/ml Free T4 (0.61-1.60) ng/dl Urine Color Yellow Urine Appearance Clear (Clear) Urine pH 6.5 (4.5-7.5) Ur Specific [place] 1.021 (1.000-1.030) Urine Protein Negative (Negative) Urine Glucose (UA) 3+ H (Negative) Urine Ketones 1+ H (Negative) Urine Blood Trace H (Negative) Urine Nitrite Negative (Negative) Urine Bilirubin Negative (Negative) Urine Urobilinogen Negative (Negative) Ur Leukocyte Esterase Trace H (Negative) Urine WBC (Auto) 1-5 (0-5) /hpf Urine RBC (Auto) 0-4 (0-4) /hpf U Hyaline Cast (Auto) 1-5 (0-5) /lpf U Epithel Cells (Auto) 5-10 H (0-5) /lpf Urine Bacteria (Auto) Negative (Negative) Adenovirus (PCR) (NotDetected) B. pertussis DNA (PCR) (NotDetected) B.parapertussis DNA PCR (NotDetected) C. pneumoniae DNA (PCR) (NotDetected) Coronavirus OC43 (PCR) (NotDetected) Coronavirus HKU1 (PCR) (NotDetected) Coronavirus 229E (PCR) (NotDetected) SARS-CoV-2 (PCR) (NotDetected) Coronavirus NL63 (PCR) (NotDetected) Human Metapneumovir PCR (NotDetected) Influenza Type A (PCR) (NotDetected) Influenza Type B (PCR) (NotDetected) M. pneumoniae (PCR) (NotDetected) Parainfluenza 1 (PCR) (NotDetected) Parainfluenza 2 (PCR) (NotDetected) Parainfluenza 3 (PCR) (NotDetected) Parainfluenza 4 (PCR) (NotDetected) RSV (PCR) (NotDetected) Entero/Rhino (PCR) (NotDetected) Administered Medications Diltiazem HCl 125 mg/ Dextrose 125 mls @ 5 mls/hr IV .Q24H [facility]; Protocol Stop: 01/01/23 23:29 Last Admin: 12/02/22 23:57 Dose: 5 mg/hr, 5 mls/hr Documented By: MANUEL Co-signed By: CC Discontinued Medications Aspirin (Aspirin Chew 324 Mg) 324 mg PO NOW STA Stop: 12/02/22 23:29 Last Admin: 12/02/22 23:35 Dose: 324 mg Documented By: ISAIAH Diltiazem HCl (Diltiazem Hcl 5 Mg/Ml 5 Ml Vial) 10 mg IV NOW STA Stop: 12/02/22 23:27 Last Admin: 12/02/22 23:33 Dose: 10 mg Documented By: ISAIAH Co-signed By: MANUEL Sodium Chloride (Nss 1000ml) 500 mls @ 999 mls/hr IV .Q31M ONE Stop: 12/02/22 22:53 Last Infusion: 12/03/22 00:28 Dose: 0 mls/hr Documented By: Admin: 12/02/22 23:30 Dose: 999 mls/hr Documented By: ISAIAH Sodium Chloride (Nss 1000ml) 500 mls @ 999 mls/hr IV .Q31M ONE Stop: 12/02/22 23:40 Last Infusion: 12/03/22 00:28 Dose: 0 mls/hr Documented By: Admin: 12/02/22 23:30 Dose: 999 mls/hr Documented By: ISAIAH Insulin Human Regular (Novolin-R Insulin Per Unit Charge) 10 units IV NOW STA Stop: 12/02/22 23:11 Last Admin: 12/02/22 23:30 Dose: 10 units Documented By: ISAIAH Co-signed By: MANUEL Metoprolol Tartrate (Metoprolol Tartrate 1 Mg/Ml Vial) 5 mg IV NOW STA Stop: 12/02/22 22:13 Last Admin: 12/02/22 22:15 Dose: 5 mg Documented By: ISAIAH Miscellaneous (Stat Iv Infusion Titration Per Protocol) 1 each N/A NOW STA Stop: 12/02/22 23:27 Last Admin: 12/03/22 00:27 Dose: Not Given Documented By: AY Imaging Data My Impression: Chest x-ray: Per my review, there are some chronic parenchymal changes. The film looks similar to previous films. I see no CHF, pneumonia or pneumothorax. Discharge Plan Visit Data Chief Complaint: Cardiac Assessment Stated Complaint: ABNORMAL HEART RATE, SOB ED Provider: Jalen Perla Discharge Problem: SOB (shortness of breath), Atrial fibrillation with rapid ventricular response, Acute electrocardiogram changes, Acute hyperglycemia, Elevated troponin Patient Disposition: Admitted As Inpatient Condition: Fair Forms Stand Alone Forms: [facility] [employer] Prescriptions Prescriptions: No Action multivitamin Tablet 1 tab PO QDL Qty: 0 docusate sodium 100 mg Capsule 300 mg PO HS Qty: 0 magnesium 250 mg Tablet 250 mg PO QDL Qty: 0 (DME) FreeStyle Anna 2 Sensor Kit See Rx Instructions .Route Qty: 2 5RF Rx Instructions: Change every 14 days amlodipine 2.5 mg tablet 2.5 mg PO PM Qty: 90 3RF atorvastatin 40 mg tablet 40 mg PO HS Qty: 90 3RF doxazosin 4 mg tablet 4 mg PO QAM Qty: 90 3RF levothyroxine 25 mcg tablet 25 mcg PO QAM Qty: 90 3RF warfarin 5 mg tablet 5 mg PO DAILY@1500 Qty: 100 3RF Protocol: Dose Management Condition: Wednesday Dose/Route: 5 mg Instruction: 1 x 5 mg tablet Condition: Wednesday Dose/Route: 2.5 mg Instruction: 0.5 x 5 mg tablets Condition: Wednesday Dose/Route: 5 mg Instruction: 1 x 5 mg tablet Condition: Wednesday Dose/Route: 5 mg Instruction: 1 x 5 mg tablet Condition: Dose/Route: 5 mg Instruction: 1 x 5 mg tablet Condition: Wednesday Dose/Route: 2.5 mg Instruction: 0.5 x 5 mg tablets Condition: Wednesday Dose/Route: 5 mg Instruction: 1 x 5 mg tablet Protocol Text: Adjustment Start Date: Wednesday11/24/22 INR Value: 2.4 INR Date: 11/24/22 Recheck Date: 12/08/22 (DME) pen needle, diabetic [Comfort EZ Pen [place]] 31 gauge x 1/4" needle See Rx Instructions .Route Qty: 150 5RF Rx Instructions: As directed to use with insulin pen, QID metoprolol tartrate 25 mg tablet 25 mg PO BID Qty: 180 2RF Rx Instructions: take 1 tab PO BID azelastine 137 mcg (0.1 %) aerosol,spray 1 spray intranasal BID Qty: 90 3RF Rx Instructions: administer into each nostril nitroglycerin [Nitrostat] 0.4 mg tablet, sublingual 0.4 mg sublingual UD PRN (Reason: Chest Pain) Qty: 25 3RF Rx Instructions: q 5min for chest pain up to 3 doses. finasteride 5 mg tablet 5 mg PO DAILY Qty: 10 0RF aspirin 81 mg tablet,delayed release (DR/EC) 81 mg PO QAM (DME) Ketone Urine Test Strip See Rx Instructions .MEDSUPPLY Qty: 50 2RF Rx Instructions: As directed to check ketones in urine if blood sugar is higher than 300 cholecalciferol (vitamin D3) 50 mcg (2,000 unit) capsule 50 mcg PO DAILY Toujeo SoloStar U-300 Insulin 300 unit/mL (1.5 mL) insulin pen 28 unit subcut DAILY insulin lispro [Humalog KwikPen Insulin] 100 unit/mL insulin pen See Rx Instructions subcut TID Rx Instructions: use insulin to carbohydrate ratio of 1:3; up to TDD 105 units isosorbide mononitrate 30 mg tablet extended release 24 hr 30 mg PO DAILY glucagon HCl [Glucagon (HCl) Emergency Kit] 1 mg recon soln 1 mg subcut Q20M PRN (Reason: hypoglycemia) Qty: 1 1RF Rx Instructions: until target blood sugar attained lutein 20 mg capsule 20 mg PO QDL thiamine HCl (vitamin B1) 100 mg tablet 100 mg PO QDL fluticasone propionate 50 mcg/actuation spray,suspension 2 sprays INTNAS DAILY PRN (Reason: Nasal Congestion) polyethylene glycol 3350 [Miralax] 17 gram/dose powder 17 g PO DAILY folic acid 1 mg tablet 1 mg PO DAILY Referrals Referrals: Guilherme Moe DO [Primary Care Provider] -
[2022-12-02 22:31] LABS: Basophils # (auto) 0.04 K/uL (0-0.2); Basophils % (auto) 0.4 %; Eosinophils # (auto) 0.08 K/uL (0-0.50); Eosinophils % (auto) 0.9 %; Hematocrit (blood only) 45.6 % (42.0-52.0); Hemoglobin 16.5 g/dl (14.0-18.0); Immature Granulocytes # (auto) 0.05 K/uL (0.01-0.20); Immature Granulocytes % (auto) 0.6 %; Lymphocytes # (auto) 1.12 K/uL (1.2-3.4); Lymphocytes % (auto) 12.4 %; Mean Corpuscular Hemoglobin 33.3 pg (25.0-34.0); Mean Corpuscular Hgb Conc 36.2 g/dL (32.0-36.0); Mean Corpuscular Volume 92.1 fL (80.0-100.0); Mean Platelet Volume 11.1 fL (9.4-12.4); Monocytes # (auto) 0.53 K/uL (0.11-0.59); Monocytes % (auto) 5.9 %; Neutrophils # (auto) 7.18 K/uL (1.40-6.50); Neutrophils % (auto) 79.8 %; Platelet Count 168 K/uL (130-400); RDW Coefficient of Variation 12.4 % (11.5-14.5); RDW Standard Deviation 41.5 fL (36.4-46.3); Red Blood Count 4.95 M/uL (4.70-6.10)
[2022-12-02 22:44] LABS: Appearance Urine Clear (Clear); Bacteria Urine Automated Negative (Negative); Bilirubin Urine Negative (Negative); Blood Urine Trace (Negative); Color Urine Yellow; Glucose Urine UA 3+ (Negative); Ketones Urine 1+ (Negative); Leukocyte Esterase Urine Trace (Negative); Nitrite Urine Negative (Negative); Protein Urine Negative (Negative); RBC Urine Automated 0-4 /hpf (0-4); Specific Gravity Urine 1.021 (1.000-1.030); Urobilinogen Urine Negative (Negative); pH Urine 6.5 (4.5-7.5)
[2022-12-02 23:06] LABS: Thyroid Stimulating Hormone 5.353 uIu/ml (0.300-4.500)
[2022-12-02] MEDS ORDERED: NovoLIN-R INSULIN PER UNIT CHARGE IV STA (23:10)
[2022-12-02 23:11] LABS: Alanine Aminotransferase 47 U/L (7-52); Albumin Globulin Ratio 1.7 (0.9-2); Albumin Level 4.9 gm/dl (3.4-5.0); Alkaline Phosphatase 85 U/L (34-104); Anion Gap 10 (3-11); Bilirubin,Total 0.6 mg/dl (0.2-1.0); Blood Urea Nitrogen 30 mg/dl (6-23); Calcium 9.7 mg/dl (8.6-10.3); Carbon Dioxide 24 mmol/L (21-32); Chloride 97 mmol/L (98-107); Creatinine Clr Calc Pharmacy 39.6 ml/min; Est GFR (African American) 46.5 ml/min; Est GFR (Non-African American) 40.1 ml/min; Globulin 2.9 gm/dl (2.5-4.0); Glucose 549 mg/dl (70-99(Fasting)); Magnesium 2.4 mg/dl (1.7-2.4); Sodium 131 mmol/L (136-145); Total Protein 7.8 gm/dl (6.0-8.3); Troponin I High Sensitivity 387.1 pg/ml (0-20)
[2022-12-02 23:26] LABS: Adenovirus PCR Not Detected (NotDetected); Bordetella parapertussis PCR Not Detected (NotDetected); Bordetella pertussis PCR Not Detected (NotDetected); Chlamydia pneumoniae PCR Not Detected (NotDetected); Coronavirus 229E PCR Not Detected (NotDetected); Coronavirus CoV-2 (COVID19)PCR Not Detected (NotDetected); Coronavirus HKU1 PCR Not Detected (NotDetected); Coronavirus NL63 PCR Not Detected (NotDetected); Coronavirus OC43PCR Not Detected (NotDetected); Human Metapneumovirus PCR Not Detected (NotDetected); Influenza A PCR Not Detected (NotDetected); Influenza B PCR Not Detected (NotDetected); Mycoplasma pneumoniae PCR Not Detected (NotDetected); Parainfluenza Virus 1 PCR Not Detected (NotDetected); Parainfluenza Virus 2 PCR Not Detected (NotDetected); Parainfluenza Virus 3 PCR Not Detected (NotDetected); Parainfluenza Virus 4 PCR Not Detected (NotDetected); Respiratory Syncytial VirusPCR Not Detected (NotDetected); Rhinovirus/Enterovirus PCR Not Detected (NotDetected)
[2022-12-02] MEDS ORDERED: STAT IV Infusion **Titration per Protocol STA (23:26)
[2022-12-02] MEDS ORDERED: dilTIAZem HCl 5 MG/ML 5 ML VIAL IV STA (23:26)
[2022-12-02] MEDS ORDERED: ASPIRIN CHEW 324 MG PO STA (23:28)
[2022-12-02] MEDS ORDERED: dilTIAZem HCL 125 MG in DEXTROSE 5% 100 ML IV SCH (23:30)
[2022-12-02 23:42] LABS: T4 Free Thyroxine 0.95 ng/dl (0.61-1.60)
[2022-12-03 00:35] LABS: Potassium 4.2 mmol/L (3.5-5.1)
[2022-12-03 00:43] LABS: Partial Thromboplastin Ratio 1.3; Partial Thromboplastin Time 35.4 Seconds (21.0-31.0); Prothrombin Time 21.2 Seconds (9.0-12.0)
--- NOTE | 2022-12-03 00:45 | History & Physical Report ---
Date of Service December 03, 2022 Assessment & Plan (1) Atrial fibrillation with rapid ventricular response: Plan: Rate improved after IV Metoprolol and Diltiazem Anticoagulated on Coumadin - INR=2 -Admit to PCU -Continue Diltiazem drip for now -Continue Metoprolol -Continue Coumadin -Check INR in AM (2) SOB (shortness of breath): Plan: Possibly secondary to atrial fibrillation. Patient appears slightly dry to euvolemic on exam. Adequate oxygenation on room air (3) Acute hyperglycemia: Plan: Type I DM. Fairly well controlled with last YvlO1L=4.3 on 11/16/22 Acute hyperglycemia today - patient things he may have eaten too much for his birthday today. Has been given IV insulin 10u -Lantus 12u BID with ISS -Goal blood sugar 110-180 -Pharmacy Glycemic Management consultation (4) Elevated troponin: Plan: Patient denies chest pain. Possibly demand ischemia - rate related -Telemetry monitoring -Trend troponin -Check 2D echo -Cardiology consultation appreciated (5) Factor V Leiden mutation: Plan: Patient on Coumadin anticoagulation -Continue Coumadin -Repeat INR in AM (6) Hypothyroidism: Plan: Chronic. Stable -Continue Synthroid 25mcg po daily Monitor right arm hematoma for expansion F/E/N - LR at 100mL/hr x 2L, monitor electrolytes and replete as needed, continue PO Thiamine, Heart Healthy diet as tolerated Ppx - On Coumadin, continue Code - Full per discussion with patient Dispo - Admit to PCU PT/OT evaluation for gait and balance issues - recent fall History of Present Illness Chief Complaint: shortness of breath Primary Care Provider: DO Sheng Yeh Gurjit is an 82yo male with history of DM, AF, CAD, GERD and Factor V Leiden on Coumadin anticoagulation presenting with shortness of breath. He reports baseline SOB on exertion but over the last several days he has had increased ACOSTA as well as SOB at rest. He had a stable cough. He had some dizziness this AM after getting out of bed and fell on his right shoulder- no LOC or head trauma. Denies fever, chills, chest pain, abdominal pain, nausea, vomiting, diarrhea. In the ER patient was found to be in atrial fibrillation with RVR - rate in 120's. Initial EKG with some ST-T wave changes - lateral depressions and TWI. He was given Metoprolol 5mg IV with improvement in heart rate as well as EKG changes. Elevated blood sugar of 549. Patient reports that his blood sugars are typically high at night - in the 300's. He is otherwise fairly well controled Elevated troponin = 387.1. No chest pain. ER Course: Metoprolol 5mg IV NSS x 1L Insulin 10u IV Diltiazem 10mg IV then gtt ASA 324mg LR x 1L Allergies Allergy/AdvReac Type Severity Reaction Status Date / Time clindamycin Allergy Intermediate Rash Verified 11/25/22 13:05 Sulfa (Sulfonamide Allergy Intermediate HIVES Verified 11/25/22 13:05 Antibiotics) lisinopril Allergy Unknown Unknown Verified 11/25/22 13:05 Penicillins Allergy Unknown Unknown Verified 11/25/22 13:05 Home Medications Medication Instructions Recorded Confirmed Type multivitamin 1 tab PO QDL ##0 11/28/08 12/02/22 History docusate sodium 100 mg capsule 300 mg PO HS #0 caps 01/19/17 12/02/22 History magnesium 250 mg tablet 250 mg PO QDL ##0 01/19/17 12/02/22 History fluticasone propionate 50 2 sprays intranasal DAILY PRN 01/10/19 12/02/22 History mcg/actuation nasal Nasal Congestion spray,suspension lutein 20 mg capsule 20 mg PO QDL 01/10/19 12/02/22 History thiamine HCl (vitamin B1) 100 mg 100 mg PO QDL 01/10/19 12/02/22 History tablet aspirin 81 mg tablet,delayed 81 mg PO QAM 11/10/19 12/02/22 History release cholecalciferol (vitamin D3) 50 50 mcg PO DAILY 07/31/20 12/02/22 History mcg (2,000 unit) capsule acetone (urine) test (Ketone Urine #50 ea 08/05/21 12/02/22 Rx Test strips) FreeStyle Anna 2 Sensor (flash #2 ea 11/27/21 12/02/22 Rx glucose sensor) polyethylene glycol 3350 17 17 g PO DAILY 12/01/21 12/02/22 History gram/dose oral powder (Miralax) amlodipine 2.5 mg tablet 2.5 mg PO PM #90 tabs 05/14/22 12/02/22 Rx atorvastatin 40 mg tablet 40 mg PO HS #90 tabs 05/18/22 12/02/22 Rx doxazosin 4 mg tablet 4 mg PO QAM #90 tabs 05/18/22 12/02/22 Rx levothyroxine 25 mcg tablet 25 mcg PO QAM #90 tabs 05/18/22 12/02/22 Rx warfarin 5 mg tablet 5 mg PO DAILY@1500 #100 tabs 05/18/22 12/02/22 Rx pen needle, diabetic 31 gauge x #150 ea 05/25/22 12/02/22 Rx 1/4" (Comfort EZ Pen Forman) metoprolol tartrate 25 mg tablet 25 mg PO BID #180 tabs 07/09/22 12/02/22 Rx azelastine 137 mcg (0.1 %) nasal 1 spray intranasal BID #90 mL 08/20/22 12/02/22 Rx spray aerosol nitroglycerin 0.4 mg sublingual 0.4 mg sublingual UD PRN Chest 09/02/22 12/02/22 Rx tablet (Nitrostat) Pain #25 tabs finasteride 5 mg tablet 5 mg PO DAILY #10 tabs 09/22/22 12/02/22 Rx glucagon HCl 1 mg solution for 1 mg subcut Q20M PRN hypoglycemia 11/25/22 12/02/22 Rx injection (Glucagon (HCl) #1 ea Emergency Kit) insulin glargine U-300 conc 300 28 unit subcut DAILY 11/25/22 12/02/22 History unit/mL (1.5 mL) subcutaneous pen (Toujeo SoloStar U-300 Insulin) insulin lispro 100 unit/mL See Rx Instructions subcut TID 11/25/22 12/02/22 History subcutaneous pen (Humalog KwikPen (U-100) Insulin) isosorbide mononitrate 30 mg 30 mg PO DAILY 11/25/22 12/02/22 History tablet,extended release 24 hr folic acid 1 mg tablet 1 mg PO DAILY 12/02/22 12/02/22 History 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) Left inguinal hernia Leukopenia Organic hypersomnia Primary hypercoagulable state Proteinuria Type 1 diabetes mellitus with complications Vitamin D deficiency Surgical History H/O hernia repair History of hand surgery History of hydrocelectomy History of surgical removal of ganglion cyst Hx of appendectomy S/P coronary artery stent placement Family History Mother , in her 60s of heart disease COPD (chronic obstructive pulmonary disease) Coronary heart disease Heart disease CHF Diabetes Hypertension Father , age 62 of melanoma Melanoma Heart disease Hypertension Brother Coronary heart disease Hypertension Myocardial infarction Son Diabetes Denies family history of Ovarian cancer Prostate cancer Breast cancer Lung cancer Colorectal cancer Stroke Social History Smoking Status: Never smoker Second Hand Exposure: No; Do You Dip or Chew Tobacco: No; Hx Alcohol Use: Yes Alcohol type: beer Alcohol Intake Frequency: 4 or More x per/Week Alcohol Intake Frequency Comment: Two shots per night (or more) Hx Substance Use: No Preferred Language: [place] Communication Ability: Effective Communication Ability Comment: expressive and receptive aphasia Visual Impairment: Limited Hearing Ability: Normal 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 Automatic Required: No Beliefs That Will Affect Care: None marital status: Current Living Situation: Spouse current occupational status: retired current occupation: Retired from [employer] age 40 to How many Children do You have: 2 Other Information That Helps Us Care for You: No Feels Safe at Home: Yes Safety Concerns: Feels Safe At This Time Childhood Exposure to Second-Hand Smoke: Yes caffeine: Yes Dental Care, Regularly: Yes Physical Activity Frequency: Does not Exercise Seatbelt Use: always Sunscreen Use: Yes Assistive Devices: Cane Review of Systems Review of Systems: All systems reviewed & are unremarkable except as noted in HPI & below Physical Exam Physical Exam: General: patient resting comfortably, NAD, non-toxic in appearance, AA&O x 4 Skin: warm, dry, intact, no rashes or lesions HEENT: NC/AT, PERRL, EOMI, anicteric sclera, conjunctiva without injection, external ear normal to inspection and nontender, nares patent, moist mucus membranes, dentition intact, no oropharyngeal lesions, neck supple, trachea midline, no LAD, no thyromegaly, no JVD Heart: +S1/S2, irregularly irregular, no m/r/g Lungs: equal air entry bilaterally, no rales/rhonchi/wheezes Abd: +BS, soft, NT/ND, no masses/organomegaly/ascites Ext: warm, 2+ pulses in UE/LE bilaterally, no clubbing/cyanosis or edema, large hematoma right arm Neuro: nonfocal, patient AA&O x 4, speech intact, no facial droop, moving all extremities on command with equal strength 5/5 Results & Data Results & Data Vital Signs (Past 12 Hours) Vital Signs Temp Pulse Resp BP Pulse Ox O2 Del Method 12/03/22 00:00 97 H 22 94 12/03/22 00:00 175/85 H 12/02/22 23:57 149/89 H 12/02/22 23:57 97 H 21 95 12/02/22 23:38 163/84 H 12/02/22 23:38 93 H 20 94 12/02/22 23:30 95 12/02/22 23:30 127/104 H 12/02/22 23:24 173/97 H 12/02/22 23:24 95 12/02/22 23:21 136/111 H 12/02/22 23:21 92 12/02/22 23:01 122 H 24 96 12/02/22 23:00 108 H 19 93 12/02/22 22:30 106 H 17 94 12/02/22 22:30 155/101 H 12/02/22 22:15 116 H 22 96 12/02/22 22:15 105/74 12/02/22 22:00 126 H 18 94 12/02/22 21:56 163/95 H 12/02/22 21:56 128 H 18 95 12/02/22 21:54 127 H 19 12/02/22 22:15 122 H 105/74 12/02/22 22:08 109 H 17 96 Room Air 12/02/22 21:50 37.2 C 127 H 18 163/95 H 96 Room Air 12/02/22 21:55 110 H Laboratory Results Laboratory Results WBC 9.00 K/ul (4.8-10.8) 12/02/22 22:00 RBC 4.95 M/uL (4.70-6.10) 12/02/22 22:00 Hgb 16.5 g/dl (14.0-18.0) 12/02/22 22:00 Hct 45.6 % (42.0-52.0) 12/02/22 22:00 MCV 92.1 fL (80.0-100.0) 12/02/22 22:00 MCH 33.3 pg (25.0-34.0) 12/02/22 22:00 MCHC 36.2 g/dL (32.0-36.0) H 12/02/22 22:00 RDW Std Deviation 41.5 fL (36.4-46.3) 12/02/22 22:00 RDW Coeff of Mary 12.4 % (11.5-14.5) 12/02/22 22:00 Plt Count 168 K/uL (130-400) 12/02/22 22:00 MPV 11.1 fL (9.4-12.4) 12/02/22 22:00 Immature Gran % (Auto) 0.6 % 12/02/22 22:00 Neut % (Auto) 79.8 % 12/02/22 22:00 Lymph % (Auto) 12.4 % 12/02/22 22:00 [place] % (Auto) 5.9 % 12/02/22 22:00 Eos % (Auto) 0.9 % 12/02/22 22:00 Baso % (Auto) 0.4 % 12/02/22 22:00 Neut # (Auto) 7.18 K/uL (1.40-6.50) H 12/02/22 22:00 Lymph # (Auto) 1.12 K/uL (1.2-3.4) L 12/02/22 22:00 [place] # (Auto) 0.53 K/uL (0.11-0.59) 12/02/22 22:00 Eos # (Auto) 0.08 K/uL (0-0.50) 12/02/22 22:00 Baso # (Auto) 0.04 K/uL (0-0.2) 12/02/22 22:00 Immature Gran # (Auto) 0.05 K/uL (0.01-0.20) 12/02/22 22:00 PT 21.2 Seconds (9.0-12.0) H 12/02/22 22:00 INR 2.0 (0.9-1.1) H 12/02/22 22:00 APTT 35.4 Seconds (21.0-31.0) H 12/02/22 22:00 PTT Ratio 1.3 12/02/22 22:00 Sodium 131 mmol/L (136-145) L 12/02/22 22:00 Potassium 4.2 mmol/L (3.5-5.1) 12/02/22 23:58 Chloride 97 mmol/L (98-107) L 12/02/22 22:00 Carbon Dioxide 24 mmol/L (21-32) 12/02/22 22:00 Anion Gap 10 (3-11) 12/02/22 22:00 BUN 30 mg/dl (6-23) H 12/02/22 22:00 Creatinine 1.58 mg/dl (0.6-1.4) H 12/02/22 22:00 Est Cr Clr Drug Dosing 39.6 ml/min 12/02/22 22:00 Est GFR ( Amer) 46.5 ml/min 12/02/22 22:00 Est GFR (Non-Af Amer) 40.1 ml/min 12/02/22 22:00 BUN/Creatinine Ratio 19.0 (10-20) 12/02/22 22:00 Glucose 549 mg/dl (70-99(Fasting)) H* 12/02/22 22:00 POC Glucose 381 mg/dl (70-99) H* 12/03/22 01:31 Calcium 9.7 mg/dl (8.6-10.3) 12/02/22 22:00 Magnesium 2.4 mg/dl (1.7-2.4) 12/02/22 22:00 Total Bilirubin 0.6 mg/dl (0.2-1.0) 12/02/22 22:00 AST 80 U/L (13-39) H 12/02/22 23:58 ALT 47 U/L (7-52) 12/02/22 22:00 Alkaline Phosphatase 85 U/L (34-104) 12/02/22 22:00 Troponin I High Sens 55748.0 pg/ml (0-20) H* D 12/03/22 01:52 B-Natriuretic Peptide 236 pg/ml (0-100) H 12/02/22 22:00 Total Protein 7.8 gm/dl (6.0-8.3) 12/02/22 22:00 Albumin 4.9 gm/dl (3.4-5.0) 12/02/22 22:00 Globulin 2.9 gm/dl (2.5-4.0) 12/02/22 22:00 Albumin/Globulin Ratio 1.7 (0.9-2) 12/02/22 22:00 TSH 5.353 uIu/ml (0.300-4.500) H 12/02/22 22:00 Free T4 0.95 ng/dl (0.61-1.60) 12/02/22 22:00 Urine Color Yellow 12/02/22 22:06 Urine Appearance Clear (Clear) 12/02/22 22:06 Urine pH 6.5 (4.5-7.5) 12/02/22 22:06 Ur Specific [place] 1.021 (1.000-1.030) 12/02/22 22:06 Urine Protein Negative (Negative) 12/02/22 22:06 Urine Glucose (UA) 3+ (Negative) H 12/02/22 22:06 Urine Ketones 1+ (Negative) H 12/02/22 22:06 Urine Blood Trace (Negative) H 12/02/22 22:06 Urine Nitrite Negative (Negative) 12/02/22 22:06 Urine Bilirubin Negative (Negative) 12/02/22 22:06 Urine Urobilinogen Negative (Negative) 12/02/22 22:06 Ur Leukocyte Esterase Trace (Negative) H 12/02/22 22:06 Urine WBC (Auto) 1-5 /hpf (0-5) 12/02/22 22:06 Urine RBC (Auto) 0-4 /hpf (0-4) 12/02/22 22:06 U Hyaline Cast (Auto) 1-5 /lpf (0-5) 12/02/22 22:06 U Epithel Cells (Auto) 5-10 /lpf (0-5) H 12/02/22 22:06 Urine Bacteria (Auto) Negative (Negative) 12/02/22 22:06 Adenovirus (PCR) Not Detected (NotDetected) 12/02/22 22:00 B. pertussis DNA (PCR) Not Detected (NotDetected) 12/02/22 22:00 B.parapertussis DNA PCR Not Detected (NotDetected) 12/02/22 22:00 C. pneumoniae DNA (PCR) Not Detected (NotDetected) 12/02/22 22:00 Coronavirus OC43 (PCR) Not Detected (NotDetected) 12/02/22 22:00 Coronavirus HKU1 (PCR) Not Detected (NotDetected) 12/02/22 22:00 Coronavirus 229E (PCR) Not Detected (NotDetected) 12/02/22 22:00 SARS-CoV-2 (PCR) Not Detected (NotDetected) 12/02/22 22:00 Coronavirus NL63 (PCR) Not Detected (NotDetected) 12/02/22 22:00 Human Metapneumovir PCR Not Detected (NotDetected) 12/02/22 22:00 Influenza Type A (PCR) Not Detected (NotDetected) 12/02/22 22:00 Influenza Type B (PCR) Not Detected (NotDetected) 12/02/22 22:00 M. pneumoniae (PCR) Not Detected (NotDetected) 12/02/22 22:00 Parainfluenza 1 (PCR) Not Detected (NotDetected) 12/02/22 22:00 Parainfluenza 2 (PCR) Not Detected (NotDetected) 12/02/22 22:00 Parainfluenza 3 (PCR) Not Detected (NotDetected) 12/02/22 22:00 Parainfluenza 4 (PCR) Not Detected (NotDetected) 12/02/22 22:00 RSV (PCR) Not Detected (NotDetected) 12/02/22 22:00 Entero/Rhino (PCR) Not Detected (NotDetected) 12/02/22 22:[address] 12/02/22 22:23 Exam(s): CT HEAD Without Contrast EXAM: CT Head Without Intravenous Contrast CLINICAL HISTORY: Reason for exam: fall. TECHNIQUE: Axial computed tomography images of the head/brain without intravenous contrast. CTDI is 38.03 mGy and DLP is 625.8 mGy-cm. Automated exposure control was utilized for the study. A dose lowering technique was utilized adhering to the principles of ALARA. COMPARISON: No relevant prior studies available. FINDINGS: Brain: The cerebral and cerebellar sulci are mildly prominent consistent with mild brain atrophy. There are a few areas of decreased attenuation in the deep cerebral white matter consistent with mild small vessel ischemic/degenerative changes. No hemorrhage. Ventricles: Unremarkable. No ventriculomegaly. Bones/joints: Unremarkable. No acute fracture. Soft tissues: Unremarkable. Vasculature: Atherosclerotic disease. Sinuses: Unremarkable as visualized. No acute sinusitis. Mastoid air cells: Unremarkable as visualized. No mastoid effusion. IMPRESSION: No acute findings in the head/brain. Electronically signed by: Johnnie Sharma MD 12/03/22 01:07 AM Code Status & VTE Plan VTE Prophylaxis Plan VTE Prophylaxis will be ordered: Yes PG Care Time/CCT Total # of Minutes Spent Total Time Spent with Patient: Total time spent is greater than 50% in coordination of care (as documented) at patient's floor/unit and/or counseling patient: Coding Level of Care Code 04347 INT INP/OBS CARE 3/75MIN Diagnoses Atrial fibrillation with rapid ventricular response I48.91 SOB (shortness of breath) R06.02 Acute hyperglycemia R73.9 Elevated troponin R77.8 Factor V Leiden mutation D68.51 Hypothyroidism E03.9
--- NOTE | 2022-12-03 01:07 | CT Scan Report ---
Exam(s): CT HEAD Without Contrast EXAM: CT Head Without Intravenous Contrast CLINICAL HISTORY: Reason for exam: fall. TECHNIQUE: Axial computed tomography images of the head/brain without intravenous contrast. CTDI is 38.03 mGy and DLP is 625.8 mGy-cm. Automated exposure control was utilized for the study. A dose lowering technique was utilized adhering to the principles of ALARA. COMPARISON: No relevant prior studies available. FINDINGS: Brain: The cerebral and cerebellar sulci are mildly prominent consistent with mild brain atrophy. There are a few areas of decreased attenuation in the deep cerebral white matter consistent with mild small vessel ischemic/degenerative changes. No hemorrhage. Ventricles: Unremarkable. No ventriculomegaly. Bones/joints: Unremarkable. No acute fracture. Soft tissues: Unremarkable. Vasculature: Atherosclerotic disease. Sinuses: Unremarkable as visualized. No acute sinusitis. Mastoid air cells: Unremarkable as visualized. No mastoid effusion. IMPRESSION: No acute findings in the head/brain. Electronically signed by: Johnnie Sharma MD 12/03/22 01:07 AM
[2022-12-03] MEDS ORDERED: CARBOHYDRATES FOR HYPOGLYCEMIA PO PRN (01:37)
[2022-12-03] MEDS ORDERED: PHARMACY GLYCEMIC MGMT CONSULT PRN (01:37)
[2022-12-03] MEDS ORDERED: GLUCAGON FOR INJ 1 MG VIAL SQ PRN (01:37)
[2022-12-03] MEDS ORDERED: DEXTROSE 50% 50 ML SYRINGE IV PRN (01:37)
[2022-12-03] MEDS ORDERED: ONDANSETRON INJ 2 MG/ML 2 ML VIAL IV PRN (01:37)
[2022-12-03] MEDS ORDERED: GLUCOSE 10 TAB/TUBE PO PRN (01:37)
[2022-12-03] MEDS ORDERED: GLUCOSE 40% GEL 15 GM TUBE PO PRN (01:37)
[2022-12-03] MEDS ORDERED: LACTATED RINGER'S 1,000 ML IV SCH (02:00)
[2022-12-03] MEDS: INSULIN ASPART PER UNIT CHARGE SC SCH ×5 (02:02→20:24)
[2022-12-03] MEDS ORDERED: Heparin IV Adult Wt-Based Standard *NO* Bolus Protocol IV ONE (05:24)
[2022-12-03] MEDS: LEVOTHYROXINE SODIUM 25 MCG TABLET PO SCH (06:05)
[2022-12-03] MEDS: HEPARIN SODIUM/DEXTROSE 25,000 UNITS/500 ML BAG IV SCH (06:08)
--- NOTE | 2022-12-03 07:25 | XRay Report ---
SINGLE VIEW CHEST CLINICAL HISTORY: Generalized weakness. FINDINGS: 2 AP, portable, upright chest radiographs are compared to study dated 11/23/2021 and correla samina with chest CT dated 10/12/2017. The heart is enlarged and noting atherosclerotic calcification of t he thoracic aorta. The pulmonary vasculature is noncongested. Enlargement of the central pulmonary ar teries suggests pulmonary artery hypertension. Chronic interstitial thickening is similar to previous . There is bibasilar scarring/atelectasis. No airspace consolidation or large pleural effusion is lizzette ntified. No pneumothorax is seen. The skeletal structures are osteopenic. The bony thorax is grossly intact. Degenerative change and mild scoliosis is noted in the spine. IMPRESSION: Cardiomegaly with no acute cardiopulmonary abnormality identified. ACT 112: Negative or not required by law. Electronically signed by: Jalen Taylor M.D. 12/03/2022 7:24 AM
[2022-12-03] MEDS ORDERED: LANTUS PER UNIT CHARGE SQ ONE ×2 (07:30)
[2022-12-03] MEDS: POLYETHYLENE (MIRALAX) 17 GM PACK PO SCH (08:27)
[2022-12-03] MEDS: FINASTERIDE 5 MG TAB PO SCH (08:28)
[2022-12-03] MEDS: DOXAZosin MESYLATE 4 MG TAB PO SCH (08:29)
[2022-12-03] MEDS: ISOSORBIDE MONO EXTENDED REL 30 MG TABCR PO SCH (08:29)
[2022-12-03] MEDS: AZELASTINE HCL 0.1% NASAL 200 SPRAYS/27,400 MCG BTL SCH ×2 (08:29→20:27)
[2022-12-03] MEDS: ASPIRIN 81 MG ECTAB PO SCH (08:30)
[2022-12-03] MEDS: FOLIC ACID 1 MG TAB PO SCH (08:30)
--- NOTE | 2022-12-03 08:49 | Electrocardiogram Report ---
Test Reason : Blood Pressure : / mmHG Vent. Rate : 114 BPM Atrial Rate : 000 BPM P-R Int : 000 ms QRS Dur : 110 ms QT Int : 338 ms P-R-T Axes : 000 -16 131 degrees QTc Int : 465 ms Atrial fibrillation with rapid ventricular response ST depression in Lateral leads , consider ischemia Old Anteroseptal infarct Abnormal ECG When compared with ECG of 23-NOV-2021 00:54, Atrial fibrillation has replaced Sinus rhythm Abnormal right superior axis deviation by 25 bpm Criteria for Anterior infarct is now Present ST more depressed Lateral leads Confirmed by Tristan Harrell ([id number]) on 12/03/2022 8:49:19 AM Referred By: REFERRED SELF Confirmed By:Tristan Harrell
--- NOTE | 2022-12-03 08:52 | Electrocardiogram Report ---
Test Reason : Blood Pressure : / mmHG Vent. Rate : 106 BPM Atrial Rate : 000 BPM P-R Int : 000 ms QRS Dur : 108 ms QT Int : 350 ms P-R-T Axes : 000 -21 130 degrees QTc Int : 464 ms Atrial fibrillation with rapid ventricular response Incomplete right bundle branch block Old Anteroseptal infarct (cited on or before 13-JUL-2021) Marked ST abnormality, possible lateral subendocardial injury Abnormal ECG When compared with ECG of 02-DEC-2022 21:49, No significant change was found Confirmed by Tristan Harrell ([id number]) on 12/03/2022 8:52:16 AM Referred By: REFERRED SELF Confirmed By:Tristan Harrell
[2022-12-03] MEDS ORDERED: LANTUS PER UNIT CHARGE SQ SCH (09:00)
[2022-12-03] MEDS ORDERED: METOPROLOL TARTRATE 25 MG TAB PO SCH (09:00)
--- NOTE | 2022-12-03 09:27 | Pharmacy Report ---
Pharmacy Glycemic Short Note 2 - Date of Service December 03, 2022 - Glycemic Short BSG Results (Last 24 hours): 12/02/22 12/03/22 12/03/22 22:00 00:33 01:31 Glucose 549 H* POC Glucose 399 H* 381 H* 12/03/22 07:10 Glucose POC Glucose 277 H OUTPATIENT ANTIDIABETIC REGIMEN: * Toujeo 28 units SC daily * Humalog TIDM (insulin:carb ratio of 3, TDD up to 105 units) HbA1c: 8.3% (11/16/22) ASSESSMENT: * PL is an 82 year old male who presented to ED overnight w/ increased shortness of breath * Patient found to be in afib w/ RVR, hyperglycemic (BSG > 500 mg/dL), and to have elevated troponin * Cardiology consulted * Patient has history of T1DM and is followed by [facility] * Currently receiving diltiazem gtt and heparin gtt (both mixed in dextrose) * Given uncertainty with diet (pending cardiology consult) - will plan to utilize BID basal insulin for now * Initial hyperglycemia on admission treated with IV insulin bolus and SC Novolog, BSG of 277 mg/dL this morning PLAN FOR INPATIENT GLYCEMIC CONTROL: * Basal insulin * Lantus 15 unit SC x 1 this morning * Lantus 0-8 units SC HS (to equal up to 80% of home basal - converting from Toujeo) * Bolus insulin * NovoLog per scale ACHS or Q6hrs while NPO * Goal Range: Low 120 mg/dL - High 150 mg/dL * Correction Factor: 45 mg/dL/unit * Nutritional / Prandial insulin per carb ratio of 1 unit per 4 grams CHO consumed
[2022-12-03] MEDS: THIAMINE HCL 100 MG TAB PO SCH (12:26)
[2022-12-03 13:21] LABS: Partial Thromboplastin Ratio 4.2
[2022-12-03 13:40] LABS: Partial Thromboplastin Time 119.8 Seconds (21.0-31.0)
--- NOTE | 2022-12-03 14:03 | Cardiology Consultation ---
Date of Consultation December 03, 2022 Assessment & Plan (1) Atrial fibrillation with rapid ventricular response: New onset atrial fibrillation with primary symptom of increased dyspnea on exertion. Treated with IV diltiazem, converted to sinus rhythm. He is already on metoprolol as an outpatient (25 mg twice daily), would recommend titrating this upward rather than adding oral diltiazem to his regimen. Could currently increase metoprolol to 50 mg twice daily. He is chronically anticoagulated for his factor V Leiden genetics as well as prior thromboembolic disease, he will need to continue warfarin long-term given his elevated [id number] score (age, hypertension, diabetes). (2) SOB (shortness of breath): Likely secondary to atrial fibrillation with rapid ventricular sponsor, no evidence of heart failure, pneumonia, or other pulmonary process. Now that his rhythm has returned to sinus, would ambulate to reassess for any dyspneic symptoms or ambulatory hypoxemia. (3) Elevated troponin: He does have a history of fairly extensive underlying coronary artery disease and moderate left ventricular hypertrophy, likely these account for troponin elevation due to demand ischemia. However, given the magnitude of elevation in the context of non-extreme tachycardia, would continue heparin for now and ensure that his troponin is leveling out or decreasing. He has not had any chest pain and his ECG changes are nonspecific (exaggeration of underlying ST depression in the context of LVH). Will check echocardiogram to exclude new wall motion abnormality (previously he had normal wall motion). If he does develop chest pain, low threshold for cardiac catheterization. (4) Anticoagulant long-term use: As noted, once ongoing myocardial ischemia has been excluded, discontinue heparin and resume warfarin with INR goal 23 given his elevated [id number] score and prior thromboembolic disease. (5) Factor V Leiden mutation: On chronic warfarin. (6) Hypertension: Would hold amlodipine while metoprolol is titrated upward, if he remains hypertensive on higher dose metoprolol could restart low-dose amlodipine. History of Present Illness Reason for Consultation: Elevated troponin, atrial fibrillation Requesting Physician: Suze Hughes DO Attending Physician: Akin Robles MD History of Present Illness 82-year-old man with CAD (RCA ERIC for IWMI 2017, remaining vessels with borderline occlusive/branch vessel disease), diabetes mellitus (on insulin), CVA 2014, factor V Leiden with prior DVT/pulmonary embolism (chronic warfarin therapy), hypertension and dyslipidemia, no prior history of arrhythmias, who was admitted 12/03/2022 after several days of worsening dyspnea on exertion, f ound to be in new onset atrial fibrillation with rapid ventricular response. He is routinely followed by Dr. Castillo. Patient has chronic dyspnea on exertion which occurs when walking up a flight of stairs, however over the past week he is noted that he has difficulty catching his breath at the top of the stairs, which is unusual for him. Chronic nonproductive cough is unchanged. He denies chest pain at any time. No subjective palpitations. Did have a presyncopal episode this morning and fell and struck his shoulder, denies any actual loss of consciousness. ER evaluation with atrial fibrillation with rapid ventricular response (114 bpm), ECG with exaggeration of chronic anterolateral ST depressions, and troponin increasing markedly on serial draws (387/14,359/39,161). Telemetry showed that he had converted to sinus rhythm approximately 1 AM this morning with rate 60-70 bpm. He remains on a diltiazem drip and heparin. His INR on warfarin was 2.0 on admission. At the time of my evaluation, the patient was comfortable with no chest pain or dyspnea at rest. Allergies Allergy/AdvReac Type Severity Reaction Status Date / Time clindamycin Allergy Intermediate Rash Verified 11/25/22 13:05 Sulfa (Sulfonamide Allergy Intermediate HIVES Verified 11/25/22 13:05 Antibiotics) lisinopril Allergy Unknown Unknown Verified 11/25/22 13:05 Penicillins Allergy Unknown Unknown Verified 11/25/22 13:05 Home Medications Medication Instructions Recorded Confirmed Type multivitamin 1 tab PO QDL ##0 11/28/08 12/02/22 History docusate sodium 100 mg capsule 300 mg PO HS #0 caps 01/19/17 12/02/22 History magnesium 250 mg tablet 250 mg PO QDL ##0 01/19/17 12/02/22 History fluticasone propionate 50 2 sprays intranasal DAILY PRN 01/10/19 12/02/22 History mcg/actuation nasal Nasal Congestion spray,suspension lutein 20 mg capsule 20 mg PO QDL 01/10/19 12/02/22 History thiamine HCl (vitamin B1) 100 mg 100 mg PO QDL 01/10/19 12/02/22 History tablet aspirin 81 mg tablet,delayed 81 mg PO QAM 11/10/19 12/02/22 History release cholecalciferol (vitamin D3) 50 50 mcg PO DAILY 07/31/20 12/02/22 History mcg (2,000 unit) capsule acetone (urine) test (Ketone Urine #50 ea 08/05/21 12/02/22 Rx Test strips) FreeStyle Anna 2 Sensor (flash #2 ea 11/27/21 12/02/22 Rx glucose sensor) polyethylene glycol 3350 17 17 g PO DAILY 12/01/21 12/02/22 History gram/dose oral powder (Miralax) amlodipine 2.5 mg tablet 2.5 mg PO PM #90 tabs 05/14/22 12/02/22 Rx atorvastatin 40 mg tablet 40 mg PO HS #90 tabs 05/18/22 12/02/22 Rx doxazosin 4 mg tablet 4 mg PO QAM #90 tabs 05/18/22 12/02/22 Rx levothyroxine 25 mcg tablet 25 mcg PO QAM #90 tabs 05/18/22 12/02/22 Rx warfarin 5 mg tablet 5 mg PO DAILY@1500 #100 tabs 05/18/22 12/02/22 Rx pen needle, diabetic 31 gauge x #150 ea 05/25/22 12/02/22 Rx 1/4" (Comfort EZ Pen [place]) metoprolol tartrate 25 mg tablet 25 mg PO BID #180 tabs 07/09/22 12/02/22 Rx azelastine 137 mcg (0.1 %) nasal 1 spray intranasal BID #90 mL 08/20/22 12/02/22 Rx spray aerosol nitroglycerin 0.4 mg sublingual 0.4 mg sublingual UD PRN Chest 09/02/22 12/02/22 Rx tablet (Nitrostat) Pain #25 tabs finasteride 5 mg tablet 5 mg PO DAILY #10 tabs 09/22/22 12/02/22 Rx glucagon HCl 1 mg solution for 1 mg subcut Q20M PRN hypoglycemia 11/25/22 12/02/22 Rx injection (Glucagon (HCl) #1 ea Emergency Kit) insulin glargine U-300 conc 300 28 unit subcut DAILY 11/25/22 12/02/22 History unit/mL (1.5 mL) subcutaneous pen (Toujeo SoloStar U-300 Insulin) insulin lispro 100 unit/mL See Rx Instructions subcut TID 11/25/22 12/02/22 History subcutaneous pen (Humalog KwikPen (U-100) Insulin) isosorbide mononitrate 30 mg 30 mg PO DAILY 11/25/22 12/02/22 History tablet,extended release 24 hr folic acid 1 mg tablet 1 mg PO DAILY 12/02/22 12/02/22 History Patient History Medical History Alcohol abuse Anti-cardiolipin antibody positive Anticoagulant long-term use Ascending aorta dilation CAD (coronary artery disease) Complex sleep apnea syndrome Dysphagia, oropharyngeal phase Factor V Leiden mutation History of CVA (cerebrovascular accident) Hoarseness Insomnia Kidney disease, chronic, stage II (mild, 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) Left inguinal hernia Leukopenia Organic hypersomnia Primary hypercoagulable state Proteinuria Type 1 diabetes mellitus with complications Vitamin D deficiency Surgical History H/O hernia repair History of hand surgery History of hydrocelectomy History of surgical removal of ganglion cyst Hx of appendectomy S/P coronary artery stent placement Family History Mother , in her 60s of heart disease COPD (chronic obstructive pulmonary disease) Coronary heart disease Heart disease CHF Diabetes Hypertension Father , age 62 of melanoma Melanoma Heart disease Hypertension Brother Coronary heart disease Hypertension Myocardial infarction Son Diabetes Denies family history of Ovarian cancer Prostate cancer Breast cancer Lung cancer Colorectal cancer Stroke Social History Smoking Status: Never smoker Second Hand Exposure: No; Do You Dip or Chew Tobacco: No; Hx Alcohol Use: Yes Alcohol type: beer Alcohol Intake Frequency: 4 or More x per/Week Alcohol Intake Frequency Comment: Two shots per night (or more) Hx Substance Use: No Preferred Language: Polish Communication Ability: Effective Communication Ability Comment: expressive and receptive aphasia Visual Impairment: Limited Hearing Ability: Normal 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 BP mildly hypertensive. Pulse 64 bpm and regular. Skin: no ecchymoses or generalized lesions. HEENT: unremarkable. Neck: JVP at the clavicle at 90 degrees, no carotid bruits. Lungs: clear. Cardiac: regular rhythm, normal S1-2, no murmur. Abdomen: benign. Extremities: no edema, pulses intact. Neurologic: normal affect and conversation, nonfocal. Results & Data Vital Signs (Past 12 Hours) Vital Signs Temp Pulse Resp BP Pulse Ox O2 Del Method 12/03/22 11:43 98.1 F 65 14 141/68 H 94 Room Air 12/03/22 07:38 98.1 F 83 16 122/54 L 95 Room Air Laboratory Results Sodium 131, chloride 97, potassium 4.2, BUN 30, creatinine 1.58. INR 2.0. Troponin as noted in HPI. Diagnostic Findings Initial ECG showed atrial fibrillation with ventricular rate of 114 bpm, old anteroseptal infarct, significant anterolateral ST depression which is increased compared with prior study. Repeat ECG again showed atrial fibrillation with ventricular rate 106 bpm and an old anteroseptal infarct, no significant change in anterolateral ST depression. Chest x-ray showed cardiomegaly with no acute abnormalities. Echocardiogram from July 2021 showed EF 6065% with no wall motion abnormalities, moderate LVH, mild MR, mild pulmonary hypertension. No change compared with 2020 study. PG Care Time/CCT Total # of Minutes Spent Total Time Spent with Patient: Total time spent is greater than 50% in coordination of care (as documented) at patient's floor/unit and/or counseling patient: Coding Level of Care Code 00497 INT INP/OBS CARE 3/75MIN Diagnoses Atrial fibrillation with rapid ventricular response I48.91 SOB (shortness of breath) R06.02 Elevated troponin R77.8 Anticoagulant long-term use Z79.01 Factor V Leiden mutation D68.51 Hypertension I10
[2022-12-03] MEDS ORDERED: WARFARIN SOD 5 MG TAB PO SCH (15:00)
--- NOTE | 2022-12-03 15:59 | XCELERA ---
[id number] \\[id number]}___[id number]
[2022-12-03] MEDS: METOPROLOL TARTRATE 50 MG TAB PO SCH (20:26)
[2022-12-03] MEDS: DOCUSATE SODIUM 100 MG CAP PO SCH (20:27)
[2022-12-03] MEDS: ATORVASTATIN 40 MG TAB PO SCH (20:27)
[2022-12-03] MEDS ORDERED: amLODIPine BESYLATE 5 MG TAB PO SCH (21:00)
[2022-12-03] MEDS ORDERED: LANTUS PER UNIT CHARGE SC SCH (21:00)
[2022-12-04] LABS: Partial Thromboplastin Ratio 4.6
[2022-12-04 00:21] LABS: Partial Thromboplastin Time 130.7 Seconds (21.0-31.0)
[2022-12-04] MEDS: HEPARIN SODIUM/DEXTROSE 25,000 UNITS/500 ML BAG IV SCH ×2 (01:49→14:39)
[2022-12-04] MEDS: LEVOTHYROXINE SODIUM 25 MCG TABLET PO SCH (05:33)
--- NOTE | 2022-12-04 06:49 | Ultrasound Report ---
RIGHT UPPER EXTREMITY VENOUS DOPPLER ULTRASOUND CLINICAL HISTORY: Right upper extremity swelling, r/o dvt COMPARISON STUDY: Right upper extremity venous Doppler ultrasound October 21, 2018. TECHNIQUE: Sonography of the venous system of the right upper extremity was performed. FINDINGS: The right internal jugular, subclavian, axillary, brachial, radial, ulnar, cephalic and bas ilic veins were patent. No venous thrombus was identified within the right upper extremity. IMPRESSION: No venous thrombus within the right upper extremity. ACT 112: Negative or not required by law. Electronically signed by: Billy Dominguez M.D. 12/04/2022 6:47 AM
[2022-12-04 07:16] LABS: Hematocrit (blood only) 37.1 % (42.0-52.0); Hemoglobin 13.2 g/dl (14.0-18.0); Mean Corpuscular Hemoglobin 33.2 pg (25.0-34.0); Mean Corpuscular Hgb Conc 35.6 g/dL (32.0-36.0); Mean Corpuscular Volume 93.5 fL (80.0-100.0); Mean Platelet Volume 10.4 fL (9.4-12.4); Platelet Count 141 K/uL (130-400); RDW Coefficient of Variation 12.6 % (11.5-14.5); RDW Standard Deviation 43.7 fL (36.4-46.3); Red Blood Count 3.97 M/uL (4.70-6.10); White Blood Count 8.23 K/ul (4.8-10.8)
[2022-12-04 07:32] LABS: Albumin Level 3.5 gm/dl (3.4-5.0); Bilirubin Direct 0.2 mg/dl (0-0.2); Bilirubin,Total 0.9 mg/dl (0.2-1.0); Calcium 8.4 mg/dl (8.6-10.3); Est GFR (African American) 54.3 ml/min; Est GFR (Non-African American) 46.9 ml/min; Potassium 4.1 mmol/L (3.5-5.1); Total Protein 5.7 gm/dl (6.0-8.3)
--- NOTE | 2022-12-04 07:32 | Pharmacy Report ---
Pharmacy Glycemic Short Note 2 - Date of Service December 04, 2022 - Glycemic Short BSG Results (Last 24 hours): 12/03/22 12/03/22 12/03/22 11:28 15:39 20:05 POC Glucose 285 H 202 H 212 H 12/04/22 07:14 POC Glucose 198 H OUTPATIENT ANTIDIABETIC REGIMEN: * Toujeo 28 units SC daily * Humalog TIDM (insulin:carb ratio of 3, TDD up to 105 units) HbA1c: 8.3% (11/16/22) ASSESSMENT: 12/04/22: * BSGs elevated yesterday, ranging 202->300 mg/dL * Patient received 88 units of insulin (23 units of basal, 55 units of SC bolus, and 10 units of IV bolus) * Remains on heparin gtt (mixed in dextrose) * Fasting BSG improved at 198 mg/dL this morning, will increase to patient's home dose of basal this morning * Given persistent hyperglycemia yesterday, will tighten carb ratio to home parameters 12/03/22: * PL is an 82 year old male who presented to ED overnight w/ increased shortness of breath * Patient found to be in afib w/ RVR, hyperglycemic (BSG > 500 mg/dL), and to have elevated troponin * Cardiology consulted * Patient has history of T1DM and is followed by [place] [facility] * Currently receiving diltiazem gtt and heparin gtt (both mixed in dextrose) * Given uncertainty with diet (pending cardiology consult) - will plan to utilize BID basal insulin for now * Initial hyperglycemia on admission treated with IV insulin bolus and SC Novolog, BSG of 277 mg/dL this morning PLAN FOR INPATIENT GLYCEMIC CONTROL: * Basal insulin * Lantus 28 units SC daily * Bolus insulin * NovoLog per scale ACHS or Q6hrs while NPO * Goal Range: Low 120 mg/dL - High 150 mg/dL * Correction Factor: 45 mg/dL/unit * Nutritional / Prandial insulin per carb ratio of 1 unit per 3 grams CHO consumed
[2022-12-04 07:45] LABS: INR 2.5 (0.9-1.1); Prothrombin Time 25.4 Seconds (9.0-12.0)
[2022-12-04 08:00] LABS: Partial Thromboplastin Ratio 2.7
[2022-12-04] MEDS: INSULIN ASPART PER UNIT CHARGE SC SCH ×4 (08:13→20:58)
[2022-12-04] MEDS: LANTUS PER UNIT CHARGE SQ SCH (08:14)
[2022-12-04] MEDS: POLYETHYLENE (MIRALAX) 17 GM PACK PO SCH (08:20)
[2022-12-04] MEDS: FOLIC ACID 1 MG TAB PO SCH (08:20)
[2022-12-04] MEDS: ASPIRIN 81 MG ECTAB PO SCH (08:21)
[2022-12-04] MEDS: DOXAZosin MESYLATE 4 MG TAB PO SCH (08:21)
[2022-12-04] MEDS: FINASTERIDE 5 MG TAB PO SCH (08:21)
[2022-12-04] MEDS: ISOSORBIDE MONO EXTENDED REL 30 MG TABCR PO SCH (08:21)
[2022-12-04] MEDS: AZELASTINE HCL 0.1% NASAL 200 SPRAYS/27,400 MCG BTL SCH ×2 (08:22→20:53)
[2022-12-04] MEDS: METOPROLOL TARTRATE 50 MG TAB PO SCH (08:22)
[2022-12-04 08:29] LABS: Partial Thromboplastin Time 75.2 Seconds (21.0-31.0)
--- NOTE | 2022-12-04 11:16 | Cardiology Progress Note ---
Date of Service December 04, 2022 Assessment & Plan (1) Atrial fibrillation with rapid ventricular response: (2) Elevated troponin: (3) NSVT (nonsustained ventricular tachycardia): (4) Anticoagulant long-term use: (5) Factor V Leiden mutation: (6) Hypertension: Plan 1. Atrial fibrillation: He presented with relatively asymptomatic atrial fibrillation, his rate was somewhat fast but not terribly fast. He converted spontaneously shortly after presentation and has remained in sinus rhythm. Over the long run he needs to remain on anticoagulation, currently warfarin. 2. Elevated troponin: He had a quite significant elevation in troponin, although this could be demand ischemia it seems very high for that but the echocardiogram did not show a new wall motion abnormality. Still it is concerning. His electrocardiogram showed ST depression, but I do not see one done following conversion. I am going to get 1 this morning. 3. Ventricular tachycardia: Even in the setting of normal left ventricular function that run of ventricular tachycardia is worrisome. It may be indicative of ischemia. At the minimum I think we need 30-day monitoring if he goes home, although we may need to consider invasive evaluation given this and his elevated troponin. I will discuss with his primary finance director, Dr. Castillo, and perhaps we should consider keeping him overnight. 4. Anticoagulation: He is on warfarin rather than one of the newer agents, I have not altered that at this time. 5. Factor V Leiden: He remains on permanent anticoagulation for this and atrial fibrillation. 6. Hypertension: His blood pressure has been markedly elevated this admission. At home he was on metoprolol tartrate 50 mg twice a day but came in with rapid ventricular response in atrial fibrillation. I think he would do better with increased beta-blockade and I am going to increase him to 75 mg twice a day. Admission and Anticipated Discharge Date Admission Date: December 03, 2022 Subjective Patient examined and history reviewed. He presented with atrial fibrillation with a rapid heart rate but he spontaneously converted to sinus rhythm. He did feel he had a loss of balance when he went to the bathroom prior to presentation, he denies other symptoms of lightheadedness, dizziness, presyncope or syncope recently. He did have a run of nonsustained ventricular tachycardia 23 beats long at 730 last evening, he denies having symptoms of lightheadedness at that time. Physical Exam Physical Exam: Constitutional: Alert, cooperative and in no distress. HEENT: Unremarkable Neck: No jugular venous distention, carotid pulses are normal and equal bilaterally without bruits. Pulmonary: Clear to auscultation bilaterally. Cardiac: Regular rhythm with no murmur, gallop or rub. Abdomen: Soft, nontender with normal bowel sounds. Extremities: No edema. Distal pulses intact. Neurologic: No focal findings. Gait is steady. Skin: No rash, ecchymoses or petechiae. Results & Data Vital Signs (Past 12 Hours) Vital Signs Temp Pulse Pulse Resp BP Pulse Ox O2 Del Method 12/04/22 10:31 36.7 C 67 18 181/65 H 94 12/04/22 07:15 36.7 C 67 18 181/65 H 94 Room Air 12/04/22 03:00 36.7 C 69 18 148/77 H 97 Room Air 12/04/22 01:09 62 Laboratory Results Cardiac Enzymes 12/03/22 12/04/22 Range/Units 14:26 06:54 AST 69 H (13-39) U/L Troponin I High Sens 56295.9 H* (0-20) pg/ml Coagulation 12/03/22 12/03/22 12/04/22 Range/Units 12:22 22:44 06:54 PT 25.4 H (9.0-12.0) Seconds APTT 119.8 H* 130.7 H* (21.0-31.0) Seconds 12/04/22 Range/Units 06:54 PT (9.0-12.0) Seconds APTT 75.2 H* (21.0-31.0) Seconds CBC 12/04/22 Range/Units 06:54 WBC 8.23 (4.8-10.8) K/ul RBC 3.97 L (4.70-6.10) M/uL Hgb 13.2 L D (14.0-18.0) g/dl Hct 37.1 L (42.0-52.0) % Plt Count 141 (130-400) K/uL Comprehensive Metabolic Panel 12/04/22 Range/Units 06:54 Sodium 137 (136-145) mmol/L Potassium 4.1 (3.5-5.1) mmol/L Chloride 106 (98-107) mmol/L Carbon Dioxide 27 (21-32) mmol/L BUN 25 H (6-23) mg/dl Creatinine 1.39 (0.6-1.4) mg/dl Glucose 188 H (70-99(Fasting)) mg/dl Calcium 8.4 L (8.6-10.3) mg/dl Direct Bilirubin 0.2 (0-0.2) mg/dl AST 69 H (13-39) U/L ALT 34 (7-52) U/L Alkaline Phosphatase 50 (34-104) U/L Total Protein 5.7 L D (6.0-8.3) gm/dl Albumin 3.5 (3.4-5.0) gm/dl Intake and Output 12/03/22 12/04/22 12/04/22 22:59 06:59 14:59 Intake Total 543.75 / 1111.916 128.25 / 1111.916 154.167 / 154.167 Balance 543.75 / 1108.916 128.25 / 1108.916 154.167 / 154.167 Intake: IV 343.75 / 561.916 128.25 / 561.916 154.167 / 154.167 Heparin Sodium/Dextrose 25,000 343.75 / 500.00 128.25 / 500.00 154.167 / 154.167 units In 500 ml @ 900 UNITS/HR 18 mls/hr IV .Q24H [facility] Rx#: [id number] Oral 200 / 550 0 / 550 Other: # Unmeasured Voids 0 2 Weight 87.4 kg 87.4 kg 87.4 kg Weight Measurement Method Built in [facility] Patient Weight 12/05/22 06:59 Weight 87.4 kg Diagnostic Findings Telemetry: Sinus rhythm, 1 run of rapid ventricular tachycardia (just over 200 bpm) 23 beats long at 193December 03, 2022. PG Care Time/CCT Total # of Minutes Spent Total Time Spent with Patient: Total time spent is greater than 50% in coordination of care (as documented) at patient's floor/unit and/or counseling patient: Coding Level of Care Code 49494 SUB INP/OBS CARE 3/50MIN Diagnoses Atrial fibrillation with rapid ventricular response I48.91 Elevated troponin R77.8 NSVT (nonsustained ventricular tachycardia) I47.29 Anticoagulant long-term use Z79.01 Factor V Leiden mutation D68.51 Hypertension I10
--- NOTE | 2022-12-04 12:07 | Hospitalist Progress Note ---
Date of Service December 04, 2022 Assessment & Plan (1) V-tach: Plan: Runs of non sustained V tach last night Could be indicative of ischemia per cardiology May need cardiac cath (2) Atrial fibrillation with rapid ventricular response: Plan: Converted to NSR Cardizem drip has been discontinued Currently on Metoprolol 50mg BID On heparin drip, but on coumadin at home (3) SOB (shortness of breath): Plan: Now resolved, Possibly secondary to atrial fibrillation. (4) Acute hyperglycemia: Plan: Type I DM. Fairly well controlled with last RmmW6P=8.3 on 11/16/22 Blood glucose is now under better control -Lantus 12u BID with ISS -Goal blood sugar 110-180 -Pharmacy Glycemic Management consultation (5) Elevated troponin: Plan: Patient denies chest pain. Possibly demand ischemia - rate related -Telemetry monitoring -Trop trending down, from 39k to 35 k - 2D echo did not show any wall motion abnormality, EF 60-65% -Cardiology consultation appreciated (6) Factor V Leiden mutation: Plan: Patient on Coumadin anticoagulation at home -Continue Coumadin -Repeat INR in AM (7) Hypothyroidism: Plan: Chronic. Stable -Continue Synthroid 25mcg po daily Monitor right arm hematoma for expansion Plan F/E/N - LR at 100mL/hr x 2L, monitor electrolytes and replete as needed, continue PO Thiamine, Heart Healthy diet as tolerated Ppx - On Coumadin, continue Code - Full per discussion with patient Dispo - Hopefully d/c to moe PT/OT evaluation for gait and balance issues - recent fall Admission and Anticipated Discharge Date Admission Date: December 03, 2022 Subjective Patient seen and examined,He did have a run of nonsustained ventricular tachycardia 23 beats long at 730 last evening, he denies having symptoms of lightheadedness at that time. Also complained of right arm bruise and swelling, negative dvt on duplex Review of Systems Review of Systems: All systems reviewed are negative, apart from the ones contained in the history. Physical Exam Physical Exam: The patient is awake, alert and oriented 3, well developed and well nourished, normocephalic and atraumatic, lying in bed and in no acute distress. HEENT--PERRL, EOMI, mucous membranes and oropharynx mildly dry Neck--supple. No JVD. No bruits. Thyroid normal, trachea midline, no adenopathy. Heart--normal S1 and S2. No murmurs, rubs or gallops. Lungs--clear bilaterally, no respiratory distress, no accessory muscle use. Abdomen--normal bowel sounds and soft. Mild epigastric and left sided abdominal pain Extremities--no cyanosis or clubbing. No edema. Dermatologic--normal skin turgor, normal color, no abnormal lymph nodes, no rash. Neurologic--cranial nerves II through XII grossly intact. Rheumatologic--normal range of motion. Psychiatric--normal affect. Results & Data Results & Data Vital Signs (Past 12 Hours) Vital Signs Temp Pulse Pulse Resp BP Pulse Ox O2 Del Method 12/04/22 11:27 97.7 F 66 18 106/63 94 Room Air 12/04/22 07:15 98.1 F 67 18 181/65 H 94 Room Air 12/04/22 03:00 98.1 F 69 18 148/77 H 97 Room Air 12/04/22 01:09 62 PG Care Time/CCT Total # of Minutes Spent Total Time Spent with Patient: Total time spent is greater than 50% in coordination of care (as documented) at patient's floor/unit and/or counseling patient: Coding Level of Care Code 74429 SUB INP/OBS CARE 2/35MIN Diagnoses V-tach I47.20 Atrial fibrillation with rapid ventricular response I48.91 SOB (shortness of breath) R06.02 Acute hyperglycemia R73.9 Elevated troponin R77.8 Factor V Leiden mutation D68.51 Hypothyroidism E03.9 Time Spent (min) 35
[2022-12-04] MEDS: THIAMINE HCL 100 MG TAB PO SCH (12:14)
[2022-12-04] MEDS: ATORVASTATIN 40 MG TAB PO SCH (20:53)
[2022-12-04] MEDS: DOCUSATE SODIUM 100 MG CAP PO SCH (20:53)
[2022-12-04] MEDS: METOPROLOL TARTRATE 25 MG TAB PO SCH (20:54)
[2022-12-05] MEDS: LEVOTHYROXINE SODIUM 25 MCG TABLET PO SCH (06:01)
[2022-12-05] MEDS: FINASTERIDE 5 MG TAB PO SCH (08:49)
[2022-12-05] MEDS: DOXAZosin MESYLATE 4 MG TAB PO SCH (08:50)
[2022-12-05] MEDS: METOPROLOL TARTRATE 25 MG TAB PO SCH ×2 (08:50→20:05)
[2022-12-05] MEDS: ISOSORBIDE MONO EXTENDED REL 30 MG TABCR PO SCH (08:51)
[2022-12-05] MEDS: ASPIRIN 81 MG ECTAB PO SCH (08:51)
[2022-12-05] MEDS: AZELASTINE HCL 0.1% NASAL 200 SPRAYS/27,400 MCG BTL SCH ×2 (08:51→20:05)
[2022-12-05] MEDS: FOLIC ACID 1 MG TAB PO SCH (08:51)
[2022-12-05] MEDS: POLYETHYLENE (MIRALAX) 17 GM PACK PO SCH (08:51)
[2022-12-05] MEDS: INSULIN ASPART PER UNIT CHARGE SC SCH ×4 (08:55→20:15)
[2022-12-05] MEDS: LANTUS PER UNIT CHARGE SQ SCH (09:04)
--- NOTE | 2022-12-05 11:28 | Hospitalist Progress Note ---
Date of Service December 05, 2022 Assessment & Plan (1) V-tach: Plan: Runs of non sustained V tach last night Could be indicative of ischemia per cardiology Plan is cardiac cath on Wednesday (2) Atrial fibrillation with rapid ventricular response: Plan: Converted to NSR Cardizem drip has been discontinued Currently on Metoprolol 50mg BID (3) SOB (shortness of breath): Plan: Now resolved, Possibly secondary to atrial fibrillation. (4) Acute hyperglycemia: Plan: Type I DM. Fairly well controlled with last [id number]=3.3 on 11/16/22 Blood glucose is now under better control -Lantus 12u BID with ISS -Goal blood sugar 110-180 -Pharmacy Glycemic Management consultation (5) Elevated troponin: Plan: Patient denies chest pain. Possibly demand ischemia - rate related -Telemetry monitoring -Trop trending down, from 39k to 35 k - 2D echo did not show any wall motion abnormality, EF 60-65% -Cardiology consultation appreciated -Plan is cath on wednesday (6) Factor V Leiden mutation: Plan: Patient on Coumadin anticoagulation at home -Continue Coumadin -Repeat INR in AM (7) Hypothyroidism: Plan: Chronic. Stable -Continue Synthroid 25mcg po daily Monitor right arm hematoma for expansion Plan F/E/N - LR at 100mL/hr x 2L, monitor electrolytes and replete as needed, continue PO Thiamine, Heart Healthy diet as tolerated Ppx - On Coumadin, continue Code - Full per discussion with patient Dispo - continue hospitalization Admission and Anticipated Discharge Date Admission Date: December 03, 2022 Subjective patient seen and examined, feels fine, no new complaints Review of Systems Review of Systems: All systems reviewed are negative, apart from the ones contained in the history. Physical Exam Physical Exam: The patient is awake, alert and oriented 3, well developed and well nourished, normocephalic and atraumatic, lying in bed and in no acute distress. HEENT--PERRL, EOMI, mucous membranes and oropharynx mildly dry Neck--supple. No JVD. No bruits. Thyroid normal, trachea midline, no adenopathy. Heart--normal S1 and S2. No murmurs, rubs or gallops. Lungs--clear bilaterally, no respiratory distress, no accessory muscle use. Abdomen--normal bowel sounds and soft. Mild epigastric and left sided abdominal pain Extremities--no cyanosis or clubbing. No edema. Dermatologic--normal skin turgor, normal color, no abnormal lymph nodes, no rash. Neurologic--cranial nerves II through XII grossly intact. Rheumatologic--normal range of motion. Psychiatric--normal affect. Results & Data Results & Data Vital Signs (Past 12 Hours) Vital Signs Temp Pulse Resp BP Pulse Ox Pulse Ox O2 Del Method 12/05/22 07:53 98.4 F 68 18 149/65 H 93 Room Air 12/05/22 03:32 98.6 F 64 18 158/77 H 95 Room Air 12/05/22 01:00 94 O2 Del Method 12/05/22 07:53 12/05/22 03:32 12/05/22 01:00 CPAP PG Care Time/CCT Total # of Minutes Spent Total Time Spent with Patient: Total time spent is greater than 50% in coordination of care (as documented) at patient's floor/unit and/or counseling patient: Coding Level of Care Code 43821 SUB INP/OBS CARE 2/35MIN Diagnoses V-tach I47.20 Atrial fibrillation with rapid ventricular response I48.91 SOB (shortness of breath) R06.02 Acute hyperglycemia R73.9 Elevated troponin R77.8 Factor V Leiden mutation D68.51 Hypothyroidism E03.9 Time Spent (min) 35
[2022-12-05] MEDS: THIAMINE HCL 100 MG TAB PO SCH (12:28)
--- NOTE | 2022-12-05 17:48 | Cardiology Progress Note ---
Date of Service December 05, 2022 Assessment & Plan (1) NSVT (nonsustained ventricular tachycardia): (2) V-tach: (3) Paroxysmal atrial fibrillation: (4) Anticoagulant long-term use: (5) CAD (coronary artery disease): (6) Dyslipidemia: (7) Hypertension: (8) CKD (chronic kidney disease): (9) Ascending aorta dilation: (10) SOB (shortness of breath): Plan ASSESSMENT/PLAN: 1. NSTEMI: No angina but presented with A-fib and has had worsening dyspnea on exertion. [place] high-[place]itivity trop[place] [address]. Recommend cardiac catheterization. Risks and benefits were discussed with he and his in detail, including PA, stroke, renal failure, or . Also discussed alternat darvin of medical therapy. After consideration, he would like to proceed with cardiac catheterization. This is nonurgent and likely be performed on 12/07/2022. Currently not on warfarin but is so chronically. Check INR tomorrow. If INR is therapeutic for Wednesday, can still proceed via radial approach. 2. CAD s/p RCA PCI: No definite angina but worsening dyspnea and acutely elevated high-sensitivity troponin in the setting of A-fib on presentation. Continue aspirin 81 mg daily indefinitely. Continue beta-kristni and high intensity statin therapy. 3. Paroxysmal atrial fibrillation: Anticoagulation therapy is indicated but he chronically is on anticoagulation therapy due to hypercoagulable state with left lower extremity DVT and extensive pulmonary emboli in the past. Diagnosed with factor V Leiden and anticardiolipin antibody syndrome. Continue anticoagulation therapy. He has not received warfarin here. Will likely need heparin drip. Check INR. Beta-kristin was increased during this hospital stay. 4. Ventricular tachycardia: Reported earlier this hospital stay. Could be due to myocardial injury given timing. Continue beta-kristin. 5. Hypertension: Blood pressure reasonable. No changes made. 6. Dyslipidemia: Continue high intensity statin therapy. 7. Hypercoagulable state: Check INR tonight. If INR is subtherapeutic, recommend heparin drip. It does not appear as though he has received warfarin here. 8. Dilated ascending aorta: Surveillance is no longer being performed as patient/family was not interested in pursuing aortic valve repair/replacement if necessary in the future given his other comorbidities. Avoid strenuous lifting for which the Valsalva maneuver is required. Continue beta-kristin therapy. He remains asymptomatic. 9. Disposition: Cardiology will continue to follow. Plan of care communicated with primary hospitalist, Dr. Robles. Primary team aware that if INR subtherapeutic, to start heparin drip tonight given hypercoagulable state. Admission and Anticipated Discharge Date Admission Date: December 03, 2022 Subjective Patient seen earlier today with his at the bedside. He had worsening dyspnea on exertion, especially while climbing stairs prior to this presentation. He did not have exertional chest discomfort. Atrial fibrillation converted to sinus rhythm on 12/03/2022 at 1:39 AM. He has maintained sinus rhythm. While here, he has had intermittent posterior left arm pain at rest la sting a few minutes. He admits that this is near his glucometer site. He denies dyspnea on exertion while ambulating in his room. He also denies orthopnea, syncope, near syncope, palpitations, edema, or bleeding. He admits that prehospital, his blood pressure cuff indicated irregularity in his heart rate intermittently, but he was asymptomatic. Physical Exam Physical Exam: Gen.: No acute distress. Alert. HEENT: Anicteric sclera. Neck: No JVD. Cardiac: Regular, without ectopy. Distant heart sounds. 1/6 early peaking systolic ejection murmur. No rubs or gallops. Pulmonary: Clear to auscultation bilaterally without wheezes, rales, or rhonchi. Abdomen: Soft, nontender, nondistended, with normoactive bowel sounds. No bruits noted. Extremities: 1+ bilateral radial pulses. 2+ posterior tibialis pulses bilaterally. No edema. No cyanosis. Results & Data Vital Signs (Past 12 Hours) Vital Signs Temp Pulse Pulse Resp BP Pulse Ox O2 Del Method 12/05/22 15:33 36.3 C L 65 18 127/68 96 Room Air 12/05/22 14:20 63 12/05/22 12:00 36.7 C 62 19 153/73 H 93 Room Air 12/05/22 07:53 36.9 C 68 18 149/65 H 93 Room Air Laboratory Results Laboratory Results - last 24 hr 12/04/22 12/04/22 12/05/22 18:28 20:10 07:13 POC Glucose 148 H 114 H 178 H 12/05/22 12/05/22 11:24 16:07 POC Glucose 237 H 195 H Diagnostic Findings Telemetry personally reviewed: Sinus rhythm. A-fib converted to sinus rhythm on 12/03/2022 at 1:39 AM. Venous Doppler 12/03/2022: No right upper extremity thrombus. Chest x-ray 12/02/2022: No acute cardiopulmonary abnormality per radiology. ECG personally reviewed 12/04/2022 at 1218: Sinus rhythm first-degree AV block. 61 bpm. Echo 12/03/2022: Normal LV size, wall motion, systolic function. EF 60 to 65%. Moderate LVH. Moderate mitral regurgitation. Hospital records reviewed. Medications Administered Current Inpatient Medications Aspirin (Aspirin 81 Mg Ectab) 81 mg PO QAM [facility] Stop: 01/02/23 08:59 Last Admin: 12/05/22 08:51 Dose: 81 mg Atorvastatin Calcium (Atorvastatin 40 Mg Tab) 40 mg PO HS [facility] Stop: 01/02/23 20:59 Last Admin: 12/04/22 20:53 Dose: 40 mg Azelastine HCl (Azelastine Hcl 0.1% Nasal 200 Sprays/27,400 Mcg Btl) 1 sprays NA BID [facility] Stop: 01/02/23 08:59 Last Admin: 12/05/22 08:51 Dose: 1 sprays Dextrose (Dextrose 50% 50 Ml Syringe) 25 - 50 ml IV UD PRN; Protocol PRN Reason: Hypoglycemia Protocol Stop: 01/02/23 01:36 Docusate Sodium (Docusate Sodium 100 Mg Cap) 300 mg PO [facility] Stop: 01/02/23 20:59 Last Admin: 12/04/22 20:53 Dose: 300 mg Doxazosin Mesylate (Doxazosin Mesylate 4 Mg Tab) 4 mg PO QAM [facility] Stop: 01/02/23 08:59 Last Admin: 12/05/22 08:50 Dose: 4 mg Finasteride (Finasteride 5 Mg Tab) 5 mg PO DAILY [facility] Stop: 01/02/23 08:59 Last Admin: 12/05/22 08:49 Dose: 5 mg Folic Acid (Folic Acid 1 Mg Tab) 1 mg PO DAILY [facility] Stop: 01/02/23 08:59 Last Admin: 12/05/22 08:51 Dose: 1 mg Glucagon (Glucagon For Inj 1 Mg Vial) 1 mg SQ UD PRN; Protocol PRN Reason: Hypoglycemia Protocol Stop: 01/02/23 01:36 Glucose (Glucose 10 Tab/Tube) 4 - 8 tab PO UD PRN; Protocol PRN Reason: Hypoglycemia Treatment Stop: 01/02/23 01:36 Glucose (Glucose 40% Gel 15 Gm Tube) 15 - 30 gm PO UD PRN; Protocol PRN Reason: Hypoglycemia Protocol Stop: 01/02/23 01:36 Insulin Aspart (Insulin Aspart Per Unit Charge) 0 units SC ACHS [facility] Stop: 01/02/23 01:59 Last Admin: 12/05/22 12:29 Dose: 18 units Insulin Glargine (Lantus Per Unit Charge) 28 units SQ DAILY [facility] Stop: 01/03/23 08:59 Last Admin: 12/05/22 09:04 Dose: 28 units Isosorbide Mononitrate (Isosorbide Whites[place] Extended Rel 30 Mg Tabcr) 30 mg PO DAILY [facility] Stop: 01/02/23 08:59 Last Admin: 12/05/22 08:51 Dose: 30 mg Levothyroxine Sodium (Levothyroxine Sodium 25 Mcg Tablet) 25 mcg PO DAILYBB [facility] Stop: 01/02/23 06:29 Last Admin: 12/05/22 06:01 Dose: 25 mcg Metoprolol Tartrate (Metoprolol Tartrate 25 Mg Tab) 75 mg PO BID [facility] Stop: 01/03/23 20:59 Last Admin: 12/05/22 08:50 Dose: 75 mg Miscellaneous (Carbohydrates For Hypoglycemia ) 15 - 30 gm PO UD PRN PRN Reason: Hypoglycemia Protocol Stop: 01/02/23 01:36 Miscellaneous Information (Pharmacy Glycemic Mgmt Consult) 1 each N/A UD PRN PRN Reason: Consult Stop: 01/02/23 01:36 Ondansetron HCl (Ondansetron Inj 2 Mg/Ml 2 Ml Vial) 4 mg IV Q6H PRN PRN Reason: Nausea Stop: 01/02/23 01:36 Polyethylene Glycol (Polyethylene (Miralax) 17 Gm Pack) 17 gm PO DAILY [facility] Stop: 01/02/23 08:59 Last Admin: 12/05/22 08:51 Dose: 17 gm Thiamine HCl (Thiamine Hcl 100 Mg Tab) 100 mg PO QDL [facility] Stop: 01/02/23 11:29 Last Admin: 12/05/22 12:28 Dose: 100 mg PG Care Time/CCT Total # of Minutes Spent Total Time Spent with Patient: Total time spent is greater than 50% in coordination of care (as documented) at patient's floor/unit and/or counseling patient: Coding Level of Care Code 36230 SUB INP/OBS CARE 3/50MIN Diagnoses NSVT (nonsustained ventricular tachycardia) I47.29 V-tach I47.20 Paroxysmal atrial fibrillation I48.0 Anticoagulant long-term use Z79.01 CAD (coronary artery disease) I25.10 Coronary Disease-Associated Artery/Lesion type: [place] artery [place] vs. transplanted heart: [place] heart Associated angina: without angina Dyslipidemia E78.5 Hypertension I10 CKD (chronic kidney disease) N18.9 Ascending aorta dilation I77.810 SOB (shortness of breath) R06.02 (5) CAD (coronary artery disease) Coronary Disease-Associated Artery/Lesion type: [place] artery [place] vs. transplanted heart: [place] heart Associated angina: without angina Qualified Code(s): I25.10 - Atherosclerotic heart disease of [place] coronary artery without angina pectoris
[2022-12-05 19:02] LABS: INR 1.5 (0.9-1.1); Prothrombin Time 16.3 Seconds (9.0-12.0)
[2022-12-05] MEDS: ATORVASTATIN 40 MG TAB PO SCH (20:06)
[2022-12-05] MEDS: DOCUSATE SODIUM 100 MG CAP PO SCH (20:06)
--- NOTE | 2022-12-05 20:45 | Electrocardiogram Report ---
Test Reason : Blood Pressure : / mmHG Vent. Rate : 061 BPM Atrial Rate : 061 BPM P-R Int : 236 ms QRS Dur : 098 ms QT Int : 446 ms P-R-T Axes : 050 -08 064 degrees QTc Int : 448 ms Sinus rhythm with 1st degree A-V block Nonspecific ST abnormality When compared with ECG of 02-DEC-2022 23:31, Sinus rhythm has replaced Atrial fibrillation Vent. rate has decreased BY 45 BPM Borderline criteria for Anterior infarct are no longer Present ST no longer depressed in Lateral leads Confirmed by Alberto Castillo ([id number]) on 12/05/2022 8:45:47 PM Referred By: REFERRED SELF Confirmed By:Alberto Castillo
[2022-12-06] MEDS: LEVOTHYROXINE SODIUM 25 MCG TABLET PO SCH (06:36)
[2022-12-06 06:50] LABS: Hematocrit (blood only) 38.7 % (42.0-52.0); Hemoglobin 13.7 g/dl (14.0-18.0); Mean Corpuscular Hgb Conc 35.4 g/dL (32.0-36.0); Mean Corpuscular Volume 93.3 fL (80.0-100.0); Mean Platelet Volume 10.7 fL (9.4-12.4); Platelet Count 149 K/uL (130-400); RDW Coefficient of Variation 12.6 % (11.5-14.5); RDW Standard Deviation 43.6 fL (36.4-46.3); Red Blood Count 4.15 M/uL (4.70-6.10); White Blood Count 8.52 K/ul (4.8-10.8)
[2022-12-06 07:08] LABS: Calcium 8.8 mg/dl (8.6-10.3); Creatinine Clr Calc Pharmacy 48.8 ml/min; Est GFR (Non-African American) 51.8 ml/min; Potassium 4.2 mmol/L (3.5-5.1)
[2022-12-06 07:50] LABS: INR 1.3 (0.9-1.1); Prothrombin Time 14.5 Seconds (9.0-12.0)
[2022-12-06] MEDS: FINASTERIDE 5 MG TAB PO SCH (08:33)
[2022-12-06] MEDS: POLYETHYLENE (MIRALAX) 17 GM PACK PO SCH (08:33)
[2022-12-06] MEDS: ISOSORBIDE MONO EXTENDED REL 30 MG TABCR PO SCH (08:33)
[2022-12-06] MEDS: METOPROLOL TARTRATE 25 MG TAB PO SCH ×2 (08:33→20:21)
[2022-12-06] MEDS: FOLIC ACID 1 MG TAB PO SCH (08:33)
[2022-12-06] MEDS: AZELASTINE HCL 0.1% NASAL 200 SPRAYS/27,400 MCG BTL SCH ×2 (08:34→20:21)
[2022-12-06] MEDS: ASPIRIN 81 MG ECTAB PO SCH (08:34)
[2022-12-06] MEDS: DOXAZosin MESYLATE 4 MG TAB PO SCH (08:34)
[2022-12-06] MEDS: INSULIN ASPART PER UNIT CHARGE SC SCH ×4 (08:37→20:39)
[2022-12-06] MEDS: LANTUS PER UNIT CHARGE SQ SCH (08:38)
[2022-12-06] MEDS ORDERED: Heparin IV Adult Wt-Based Standard WITH Bolus Protocol IV STA (10:08)
[2022-12-06] MEDS ORDERED: HEPARIN SOD (PORCINE) 1000 UNIT/ML IV ONE (10:23)
[2022-12-06] MEDS: HEPARIN SODIUM/DEXTROSE 25,000 UNITS/500 ML BAG IV SCH (11:41)
[2022-12-06] MEDS: THIAMINE HCL 100 MG TAB PO SCH (11:45)
--- NOTE | 2022-12-06 12:55 | Hospitalist Progress Note ---
Date of Service December 06, 2022 Assessment & Plan (1) V-tach: Plan: Runs of non sustained V tach on 12/03 Could be indicative of ischemia per cardiology Plan is cardiac cath on Wednesday (2) Atrial fibrillation with rapid ventricular response: Plan: Converted to NSR On Coumadin at home, was held on admission Cardizem drip has been discontinued Currently on Metoprolol 50mg BID Continue Heparin drip, INR was 1.3 (3) SOB (shortness of breath): Plan: Now resolved, Possibly secondary to atrial fibrillation. (4) Acute hyperglycemia: Plan: Type I DM. Fairly well controlled with last [id number]=3.3 on 11/16/22 Blood glucose is now under better control -Lantus 12u BID with ISS -Goal blood sugar 110-180 -Pharmacy Glycemic Management consultation (5) Elevated troponin: Plan: Patient denies chest pain. Possibly demand ischemia - rate related -Telemetry monitoring -Trop trending down, from 39k to 35 k - 2D echo did not show any wall motion abnormality, EF 60-65% -Cardiology consultation appreciated -Plan is cath on wednesday (6) Factor V Leiden mutation: Plan: Patient on Coumadin anticoagulation at home -Hold Coumadin in view of anticipated cath on wednesday, on Heparin drip (7) Hypothyroidism: Plan: Chronic. Stable -Continue Synthroid 25mcg po daily Monitor right arm hematoma for expansion (no evidence of dvt on duplex) Plan Code - Full per discussion with patient Dispo - continue hospitalization Admission and Anticipated Discharge Date Admission Date: December 03, 2022 Subjective patient seen and examined, no new complaints, denies chest pain Review of Systems Review of Systems: All systems reviewed are negative, apart from the ones contained in the history. Physical Exam Physical Exam: The patient is awake, alert and oriented 3, well developed and well nourished, normocephalic and atraumatic, lying in bed and in no acute distress. HEENT--PERRL, EOMI, mucous membranes and oropharynx mildly dry Neck--supple. No JVD. No bruits. Thyroid normal, trachea midline, no adenopathy. Heart--normal S1 and S2. No murmurs, rubs or gallops. Lungs--clear bilaterally, no respiratory distress, no accessory muscle use. Abdomen--normal bowel sounds and soft. Mild epigastric and left sided abdominal pain Extremities--no cyanosis or clubbing. No edema. Dermatologic--normal skin turgor, normal color, no abnormal lymph nodes, no rash. Neurologic--cranial nerves II through XII grossly intact. Rheumatologic--normal range of motion. Psychiatric--normal affect. Results & Data Results & Data Vital Signs (Past 12 Hours) Vital Signs Temp Pulse Resp BP Pulse Ox Pulse Ox O2 Del Method 12/06/22 12:12 98.2 F 58 L 19 138/66 92 Room Air 12/06/22 08:56 139/77 12/06/22 07:33 98.1 F 63 18 170/73 H 96 Room Air 12/06/22 03:00 97.9 F 72 21 112/60 96 CPAP 12/06/22 01:00 96 O2 Del Method 12/06/22 12:12 12/06/22 08:56 12/06/22 07:33 12/06/22 03:00 12/06/22 01:00 Room Air PG Care Time/CCT Total # of Minutes Spent Total Time Spent with Patient: Total time spent is greater than 50% in coordination of care (as documented) at patient's floor/unit and/or counseling patient: Coding Level of Care Code 42757 SUB INP/OBS CARE 2/35MIN Diagnoses V-tach I47.20 Atrial fibrillation with rapid ventricular response I48.91 SOB (shortness of breath) R06.02 Acute hyperglycemia R73.9 Elevated troponin R77.8 Factor V Leiden mutation D68.51 Hypothyroidism E03.9 Time Spent (min) 35
--- NOTE | 2022-12-06 13:11 | Cardiology Progress Note ---
Date of Service December 06, 2022 Assessment & Plan (1) NSVT (nonsustained ventricular tachycardia): (2) V-tach: (3) Paroxysmal atrial fibrillation: (4) Anticoagulant long-term use: (5) CAD (coronary artery disease): (6) Dyslipidemia: (7) Hypertension: (8) CKD (chronic kidney disease): (9) Ascending aorta dilation: (10) SOB (shortness of breath): Plan ASSESSMENT/PLAN: 1. NSTEMI: No angina but presented with A-fib and has had worsening dyspnea on exertion as an outpatient. Peak high-sensitivity troponin was [address]. Recommend cardiac catheterization. Catheterization likely to be performed tomorrow. 2. CAD s/p RCA PCI: No definite angina but worsening dyspnea and acutely elevated high-sensitivity troponin in the setting of A-fib on presentation. Continue aspirin 81 mg daily indefinitely. Continue beta-kristin and high intensity statin therapy. 3. Paroxysmal atrial fibrillation: Anticoagulation therapy is indicated but he chronically is on anticoagulation therapy due to hypercoagulable state with left lower extremity DVT and extensive pulmonary emboli in the past. Diagnosed with factor V Leiden and anticardiolipin antibody syndrome. Continue anticoagulation therapy. He has not received warfarin here. INR is subtherapeutic. Heparin drip ordered. 4. Ventricular tachycardia: Reported earlier this hospital stay. Could be due to myocardial injury given timing. Continue beta-kristin. Rhythm strip not available for review but an episode of atrial tachycardia noted from 12/03/2022. 5. Hypertension: Blood pressure reasonable. No changes made. 6. Dyslipidemia: Continue high intensity statin therapy. 7. Hypercoagulable state: Should remain on anticoagulation therapy. Heparin drip initiated due to subtherapeutic INR. 8. Dilated ascending aorta: Surveillance is no longer being performed as patient/family was not interested in pursuing aortic valve repair/replacement if necessary in the future given his other comorbidities. Avoid strenuous lifting for which the Valsalva maneuver is required. Continue beta-kristin therapy. He remains asymptomatic. 9. Disposition: Cardiology will continue to follow. N.p.o. after midnight except for medications. Admission and Anticipated Discharge Date Admission Date: December 03, 2022 Subjective Patient was seen this morning. He denies chest pain, shortness of breath, syncope, near syncope, palpitations, edema, or bleeding. He was alone in his hospital room. Physical Exam Physical Exam: Gen.: No acute distress. Alert. HEENT: Anicteric sclera. Neck: No JVD. Cardiac: Regular, without ectopy. Distant heart sounds. 1/6 early peaking systolic ejection murmur. No rubs or gallops. Pulmonary: Clear to auscultation bilaterally without wheezes, rales, or rhonchi. Abdomen: Soft, nontender, nondistended, with normoactive bowel sounds. No bruits noted. Extremities: 1+ bilateral radial pulses. 2+ posterior tibialis pulses bilaterally. Trace bilateral lower extremity edema. No cyanosis. Results & Data Vital Signs (Past 12 Hours) Vital Signs Temp Pulse Resp BP Pulse Ox O2 Del Method 12/06/22 12:12 36.8 C 58 L 19 138/66 92 Room Air 12/06/22 08:56 139/77 12/06/22 07:33 36.7 C 63 18 170/73 H 96 Room Air 12/06/22 03:00 36.6 C 72 21 112/60 96 CPAP Laboratory Results Laboratory Results - last 24 hr 12/05/22 12/05/22 12/05/22 16:07 18:22 20:07 WBC RBC Hgb Hct MCV MCH MCHC RDW Std Deviation RDW Coeff of Mary Plt Count MPV PT 16.3 H INR 1.5 H Sodium Potassium Chloride Carbon Dioxide Anion Gap BUN Creatinine Est Cr Clr Drug Dosing Est GFR ( Amer) Est GFR (Non-Af Amer) BUN/Creatinine Ratio Glucose POC Glucose 195 H 180 H Calcium 12/05/22 12/06/22 12/06/22 22:35 06:18 06:18 WBC 8.52 RBC 4.15 L Hgb 13.7 L Hct 38.7 L MCV 93.3 MCH 33.0 MCHC 35.4 RDW Std Deviation 43.6 RDW Coeff of Mary 12.6 Plt Count 149 MPV 10.7 PT INR Sodium 139 Potassium 4.2 Chloride 107 Carbon Dioxide 26 Anion Gap 6 BUN 23 Creatinine 1.28 Est Cr Clr Drug Dosing 48.8 Est GFR ( Amer) 60.0 Est GFR (Non-Af Amer) 51.8 BUN/Creatinine Ratio 18.0 Glucose 126 H POC Glucose 76 Calcium 8.8 12/06/22 12/06/22 12/06/22 06:18 07:09 11:17 WBC RBC Hgb Hct MCV MCH MCHC RDW Std Deviation RDW Coeff of Mary Plt Count MPV PT 14.5 H INR 1.3 H Sodium Potassium Chloride Carbon Dioxide Anion Gap BUN Creatinine Est Cr Clr Drug Dosing Est GFR ( Amer) Est GFR (Non-Af Amer) BUN/Creatinine Ratio Glucose POC Glucose 156 H 207 H Calcium Diagnostic Findings Telemetry personally reviewed: Sinus rhythm. Labs reviewed from 12/06/2022: Stable renal function, stable hemoglobin. Medications Administered Current Inpatient Medications Aspirin (Aspirin 81 Mg Ectab) 81 mg PO QAM [facility] Stop: 01/02/23 08:59 Last Admin: 12/06/22 08:34 Dose: 81 mg Atorvastatin Calcium (Atorvastatin 40 Mg Tab) 40 mg PO [facility] Stop: 01/02/23 20:59 Last Admin: 12/05/22 20:06 Dose: 40 mg Azelastine HCl (Azelastine Hcl 0.1% Nasal 200 Sprays/27,400 Mcg Btl) 1 sprays NA BID [facility] Stop: 01/02/23 08:59 Last Admin: 12/06/22 08:34 Dose: 1 sprays Dextrose (Dextrose 50% 50 Ml Syringe) 25 - 50 ml IV UD PRN; Protocol PRN Reason: Hypoglycemia Protocol Stop: 01/02/23 01:36 Docusate Sodium (Docusate Sodium 100 Mg Cap) 300 mg PO [facility] Stop: 01/02/23 20:59 Last Admin: 12/05/22 20:06 Dose: 300 mg Doxazosin Mesylate (Doxazosin Mesylate 4 Mg Tab) 4 mg PO QAM [facility] Stop: 01/02/23 08:59 Last Admin: 12/06/22 08:34 Dose: 4 mg Finasteride (Finasteride 5 Mg Tab) 5 mg PO DAILY [facility] Stop: 01/02/23 08:59 Last Admin: 12/06/22 08:33 Dose: 5 mg Folic Acid (Folic Acid 1 Mg Tab) 1 mg PO DAILY [facility] Stop: 01/02/23 08:59 Last Admin: 12/06/22 08:33 Dose: 1 mg Glucagon (Glucagon For Inj 1 Mg Vial) 1 mg SQ UD PRN; Protocol PRN Reason: Hypoglycemia Protocol Stop: 01/02/23 01:36 Glucose (Glucose 10 Tab/Tube) 4 - 8 tab PO UD PRN; Protocol PRN Reason: Hypoglycemia Treatment Stop: 01/02/23 01:36 Glucose (Glucose 40% Gel 15 Gm Tube) 15 - 30 gm PO UD PRN; Protocol PRN Reason: Hypoglycemia Protocol Stop: 01/02/23 01:36 Heparin Sodium/Dextrose (Heparin Sodium/Dextrose) 25,000 units in 500 mls @ 29 mls/hr IV .[id number] [facility]; Protocol Stop: 01/05/23 10:29 Last Admin: 12/06/22 11:41 Dose: 1,450 units/hr, 29 mls/hr Insulin Aspart (Insulin Aspart Per Unit Charge) 0 units SC ACHS [facility] Stop: 01/02/23 01:59 Last Admin: 12/06/22 11:44 Dose: 13 units Insulin Glargine (Lantus Per Unit Charge) 28 units SQ DAILY [facility] Stop: 01/03/23 08:59 Last Admin: 12/06/22 08:38 Dose: 28 units Isosorbide Mononitrate (Isosorbide [place] Extended Rel 30 Mg Tabcr) 30 mg PO DAILY [facility] Stop: 01/02/23 08:59 Last Admin: 12/06/22 08:33 Dose: 30 mg Levothyroxine Sodium (Levothyroxine Sodium 25 Mcg Tablet) 25 mcg PO DAILYBB [facility] Stop: 01/02/23 06:29 Last Admin: 12/06/22 06:36 Dose: 25 mcg Metoprolol Tartrate (Metoprolol Tartrate 25 Mg Tab) 75 mg PO BID [facility] Stop: 01/03/23 20:59 Last Admin: 12/06/22 08:33 Dose: 75 mg Miscellaneous (Carbohydrates For Hypoglycemia ) 15 - 30 gm PO UD PRN PRN Reason: Hypoglycemia Protocol Stop: 01/02/23 01:36 Miscellaneous Information (Pharmacy Glycemic Mgmt Consult) 1 each N/A UD PRN PRN Reason: Consult Stop: 01/02/23 01:36 Ondansetron HCl (Ondansetron Inj 2 Mg/Ml 2 Ml Vial) 4 mg IV Q6H PRN PRN Reason: Nausea Stop: 01/02/23 01:36 Polyethylene Glycol (Polyethylene (Miralax) 17 Gm Pack) 17 gm PO DAILY [facility] Stop: 01/02/23 08:59 Last Admin: 12/06/22 08:33 Dose: 17 gm Thiamine HCl (Thiamine Hcl 100 Mg Tab) 100 mg PO QDL [facility] Stop: 01/02/23 11:29 Last Admin: 12/06/22 11:45 Dose: 100 mg PG Care Time/CCT Total # of Minutes Spent Total Time Spent with Patient: Total time spent is greater than 50% in coordination of care (as documented) at patient's floor/unit and/or counseling patient: Coding Level of Care Code 96815 SUB INP/OBS CARE 3/50MIN Diagnoses NSVT (nonsustained ventricular tachycardia) I47.29 V-tach I47.20 Paroxysmal atrial fibrillation I48.0 Anticoagulant long-term use Z79.01 CAD (coronary artery disease) I25.10 Coronary Disease-Associated Artery/Lesion type: [place] artery [place] vs. transplanted heart: [place] heart Associated angina: without angina Dyslipidemia E78.5 Hypertension I10 CKD (chronic kidney disease) N18.9 Ascending aorta dilation I77.810 SOB (shortness of breath) R06.02 (5) CAD (coronary artery disease) Coronary Disease-Associated Artery/Lesion type: [place] artery [place] vs. transplanted heart: [place] heart Associated angina: without angina Qualified Code(s): I25.10 - Atherosclerotic heart disease of [place] coronary artery without angina pectoris
[2022-12-06 18:22] LABS: Partial Thromboplastin Ratio 4.4
[2022-12-06 18:25] LABS: Partial Thromboplastin Time 123.5 Seconds (21.0-31.0)
[2022-12-06] MEDS: DOCUSATE SODIUM 100 MG CAP PO SCH (20:22)
[2022-12-06] MEDS: ATORVASTATIN 40 MG TAB PO SCH (20:22)
[2022-12-06 23:06] LABS: Partial Thromboplastin Ratio 1.6
[2022-12-06 23:11] LABS: Partial Thromboplastin Time 46.4 Seconds (21.0-31.0)
[2022-12-07] MEDS: INSULIN ASPART PER UNIT CHARGE SC SCH ×4 (05:49→20:05)
[2022-12-07] MEDS: LEVOTHYROXINE SODIUM 25 MCG TABLET PO SCH (05:49)
[2022-12-07 07:13] LABS: Hematocrit (blood only) 37.2 % (42.0-52.0); Hemoglobin 12.8 g/dl (14.0-18.0); Mean Corpuscular Hemoglobin 32.3 pg (25.0-34.0); Mean Corpuscular Hgb Conc 34.4 g/dL (32.0-36.0); Mean Corpuscular Volume 93.9 fL (80.0-100.0); Mean Platelet Volume 10.8 fL (9.4-12.4); Platelet Count 149 K/uL (130-400); RDW Coefficient of Variation 12.4 % (11.5-14.5); RDW Standard Deviation 42.8 fL (36.4-46.3); Red Blood Count 3.96 M/uL (4.70-6.10); White Blood Count 8.01 K/ul (4.8-10.8)
[2022-12-07] MEDS ORDERED: INSULIN ASPART PER UNIT CHARGE SC SCH (07:30)
[2022-12-07 07:35] LABS: BUN Creatinine Ratio 17.9 (10-20); Calcium 8.7 mg/dl (8.6-10.3); Creatinine Clr Calc Pharmacy 46.7 ml/min; Est GFR (African American) 56.8 ml/min; Potassium 3.9 mmol/L (3.5-5.1)
[2022-12-07] MEDS ORDERED: LANTUS PER UNIT CHARGE SQ SCH (09:00)
[2022-12-07] MEDS: AZELASTINE HCL 0.1% NASAL 200 SPRAYS/27,400 MCG BTL SCH ×2 (09:18→19:59)
[2022-12-07] MEDS: ISOSORBIDE MONO EXTENDED REL 30 MG TABCR PO SCH (09:20)
[2022-12-07] MEDS: amLODIPine BESYLATE 5 MG TAB PO SCH (09:21)
[2022-12-07] MEDS: METOPROLOL TARTRATE 25 MG TAB PO SCH ×2 (09:21→19:59)
[2022-12-07] MEDS: FINASTERIDE 5 MG TAB PO SCH (09:22)
[2022-12-07] MEDS: FOLIC ACID 1 MG TAB PO SCH (09:22)
[2022-12-07] MEDS: ASPIRIN 81 MG ECTAB PO SCH (09:23)
[2022-12-07] MEDS: DOXAZosin MESYLATE 4 MG TAB PO SCH (09:23)
[2022-12-07] MEDS ORDERED: niCARdipine HCL INJ 2.5 MG/ML 10 ML AMP ONE (09:32)
[2022-12-07] MEDS ORDERED: MIDAZOLAM HCL 1 MG/ML 2ML VIAL ONE (09:32)
[2022-12-07] MEDS ORDERED: fentaNYL citrate PF 100 MCG/2 ML VIAL ONE (09:32)
[2022-12-07] MEDS ORDERED: HEPARIN (PORCINE) 1000 UNIT/ML 10 ML (CATH LAB USE ONLY) ONE (09:32)
[2022-12-07] MEDS ORDERED: NITROGLYCERIN/D5W 100MCG/ML 20ML SYR ONE (09:33)
--- NOTE | 2022-12-07 09:58 | Pre Anesthesia Assessment ---
Date of Service December 07, 2022 Pre Sedation Assessment Vital Signs Temp Pulse Pulse Resp BP Pulse Ox Pulse Ox 12/07/22 09:40 64 18 167/63 H 96 12/07/22 07:39 36.5 C 67 18 191/70 H 98 12/07/22 03:40 36.5 C 60 20 153/74 H 95 12/07/22 01:32 94 12/06/22 23:55 62 12/06/22 23:18 37.3 C 64 18 148/71 H 96 12/06/22 19:47 36.9 C 68 20 149/67 H 97 12/06/22 16:17 36.8 C 58 L 18 116/52 L 98 12/06/22 13:15 60 12/06/22 12:12 36.8 C 58 L 19 138/66 92 O2 Del Method O2 Del Method O2 Flow Rate 12/07/22 09:40 Room Air 12/07/22 07:39 CPAP 12/07/22 03:40 CPAP 7 12/07/22 01:32 Room Air 12/06/22 23:55 12/06/22 23:18 Room Air 12/06/22 19:47 Room Air 12/06/22 16:17 Room Air 12/06/22 13:15 12/06/22 12:12 Room Air Cardiovascular + regular rate + murmur Respiratory normal respiratory effort, lungs clear to auscultation Pre-Sedation Airway Assessment Smoking Status: Never smoker Hx Sleep Apnea: No Short, Thick Neck: No Thyromental Distance: > or= 3.5 Finger Breadths Oral Cavity: + WNL Mallampati Class: III ASA: ASA3 NPO Status Date of Last Intake of Fluids: 12/07/22 Time of Last Intake of Fluids: 08:00 Last Oral Intake of Fluids Comment: water with pills Date of Last Intake of Solid Food: 12/06/22 Time of Last Intake of Solid Foods: 22:00 Procedure Planning Contraindications for Sedation: none Current Medications Reviewed: Yes Notes The planned sedation has been discussed with the patient. Informed Consent was obtained. I have identified the patient, determined the appropriateness of sedation and have assessed the patient immediately prior to the procedure. All medicine(s) and interventions are by my order.
--- NOTE | 2022-12-07 10:02 | Cardiology Progress Note ---
Date of Service December 07, 2022 Assessment & Plan (1) Non-ST elevation (NSTEMI) myocardial infarction: (2) CAD (coronary artery disease): (3) V-tach: (4) NSVT (nonsustained ventricular tachycardia): (5) Paroxysmal atrial fibrillation: (6) Anticoagulant long-term use: (7) Dyslipidemia: (8) Hypertension: (9) CKD (chronic kidney disease): (10) Ascending aorta dilation: (11) SOB (shortness of breath): Plan ASSESSMENT/PLAN: 1. NSTEMI: No angina but presented with A-fib and has had worsening dyspnea on exertion as an outpatient. Peak high-sensitivity troponin [place] [address]. Cardiac catheterization demonstrated severe multivessel CAD. 2. CAD s/p RCA PCI: No angina here. Has had worsening dyspnea on exertion and now found to have severe multivessel CAD. Recommend evaluation by CT surgery for potential CABG. [facility] was contacted and Dr. Bocanegra has accepted him in transfer, when bed available. Continue aspirin 81 mg daily indefinitely. Continue beta-kristin and high intensity statin therapy. 3. Paroxysmal atrial fibrillation: Sinus rhythm today. Continue beta-kristin. Anticoagulation therapy is indicated but he chronically is on anticoagulation therapy due to hypercoagulable state with left lower extremity DVT and extensive pulmonary emboli in the past. Diagnosed with factor V Leiden and anticardiolipin antibody syndrome. Continue anticoagulation therapy. He has not received warfarin here. Interested in DOAC agent rather than warfarin, which he had chronically been taking. 4. Ventricular tachycardia: Reported earlier this hospital stay. Could be due to myocardial injury given timing. Continue beta-kristin. Rhythm strip not available for review but an episode of atrial tachycardia noted from 12/03/2022. 5. Hypertension: Blood pressure more elevated today. Amlodipine given by primary hospitalist service at 5 mg this morning. Not on CONSTANTIN inhibitor due to previous adverse reaction. Beta-kristin has been titrated. Optimize blood pressure control, especially in light of multivessel CAD. 6. Dyslipidemia: Continue high intensity statin therapy. Most recent LDL was reasonably controlled, <70. 7. Hypercoagulable state: Should remain on anticoagulation therapy. On heparin drip. 8. Dilated ascending aorta: Surveillance is no longer being performed as patient/family was not interested in pursuing aorta repair/replacement if necessary in the future given his other comorbidities. Avoid strenuous lifting for which the Valsalva maneuver is required. Continue beta-kristin therapy. He remains asymptomatic. 9. Disposition: Transfer to [facility] for evaluation for CABG, when bed available. Has been accepted by Dr. Bocanegra. Plan of care communicated with primary hospitalist, Dr. Robles. Cardiology will continue to follow. Today's visit was approximately 60 minutes, including counseling patient, coordinating care, discussing with family, arranging for transfer, reviewing records, and completing documentation. Admission and Anticipated Discharge Date Admission Date: December 03, 2022 Subjective He denies chest pain, shortness of breath, syncope, near syncope, palpitations, edema, or bleeding. He fell earlier this hospital stay with a right upper extremity ecchymosis and hematoma. He states that he lost his balance and denies any syncopal or near syncopal episodes. He underwent cardiac catheterization today, demonstrating severe multivessel CAD. He was seen on multiple occasions today, and following cardiac catheterization, his was present at the bedside. Physical Exam Physical Exam: Gen.: No acute distress. Alert. HEENT: Anicteric sclera. Neck: No JVD. Cardiac: Regular, without ectopy. Distant heart sounds. 1/6 early peaking systolic ejection murmur. No rubs or gallops. Pulmonary: Clear to auscultation bilaterally without wheezes, rales, or rhonchi. Abdomen: Soft, nontender, nondistended, with normoactive bowel sounds. No bruits noted. Extremities: 1+ bilateral radial pulses. 2+ posterior tibialis pulses bilaterally. Trace bilateral lower extremity edema. No cyanosis. Right upper extremity hematoma and ecchymosis. Results & Data Vital Signs (Past 12 Hours) Vital Signs Temp Pulse Pulse Resp BP Pulse Ox Pulse Ox 12/07/22 09:40 64 18 167/63 H 96 12/07/22 07:39 36.5 C 67 18 191/70 H 98 12/07/22 03:40 36.5 C 60 20 153/74 H 95 12/07/22 01:32 94 12/06/22 23:55 62 12/06/22 23:18 37.3 C 64 18 148/71 H 96 O2 Del Method O2 Del Method O2 Flow Rate 12/07/22 09:40 Room Air 12/07/22 07:39 CPAP 12/07/22 03:40 CPAP 7 12/07/22 01:32 Room Air 12/06/22 23:55 12/06/22 23:18 Room Air Intake & Output 12/05/22 12/06/22 12/07/22 12/08/22 06:59 06:59 06:59 06:59 Intake Total 1564.167 / 0586.035 1441 / 1030 1184.317 / 1184.317 169.767 / 169.767 Output Total 2 / 2 0 / 0 Balance 1562.167 / 4870.737 1376 / 1029 1184.317 / 1184.317 169.767 / 169.767 Weight 193 lb 12.581 oz 193 lb 9.054 oz 192 lb 10.944 oz Laboratory Results Laboratory Results - last 24 hr 12/06/22 12/06/22 12/06/22 11:17 16:13 17:31 WBC RBC Hgb Hct MCV MCH MCHC RDW Std Deviation RDW Coeff of Mary Plt Count MPV APTT 123.5 H* PTT Ratio 4.4 Sodium Potassium Chloride Carbon Dioxide Anion Gap BUN Creatinine Est Cr Clr Drug Dosing Est GFR ( Amer) Est GFR (Non-Af Amer) BUN/Creatinine Ratio Glucose POC Glucose 207 H 214 H Calcium 12/06/22 12/06/22 12/06/22 20:31 21:35 22:59 WBC RBC Hgb Hct MCV MCH MCHC RDW Std Deviation RDW Coeff of Mary Plt Count MPV APTT 46.4 H* PTT Ratio 1.6 Sodium Potassium Chloride Carbon Dioxide Anion Gap BUN Creatinine Est Cr Clr Drug Dosing Est GFR ( Amer) Est GFR (Non-Af Amer) BUN/Creatinine Ratio Glucose POC Glucose 169 H 90 Calcium 12/07/22 12/07/22 12/07/22 05:48 06:24 06:24 WBC 8.01 RBC 3.96 L Hgb 12.8 L Hct 37.2 L MCV 93.9 MCH 32.3 MCHC 34.4 RDW Std Deviation 42.8 RDW Coeff of Mary 12.4 Plt Count 149 MPV 10.8 APTT PTT Ratio Sodium 138 Potassium 3.9 Chloride 106 Carbon Dioxide 26 Anion Gap 6 BUN 24 H Creatinine 1.34 Est Cr Clr Drug Dosing 46.7 Est GFR ( Amer) 56.8 Est GFR (Non-Af Amer) 49.0 BUN/Creatinine Ratio 17.9 Glucose 119 H POC Glucose 120 H Calcium 8.7 Diagnostic Findings Telemetry personally reviewed: Sinus rhythm. Labs reviewed from 12/07/2022: Stable renal function, mild anemia. Cardiac Cath 12/07/2022: Coronary angiography: 1. Heavy calcifications noted throughout the left system and the RCA. 2. Left main: Calcified. Distal left main 50 to 70%. 3. Left anterior descending: Extends to the apex. Diffusely diseased throughout the proximal and mid portions of the LAD with heavy calcification. Ostial LAD approximately 40%. Early mid LAD 70 to 80% followed by diffuse 50 to 70% stenosis. Large D1 without significant CAD. Large D2 with proximal/mid 90% stenosis at bifurcation of lateral branch. D2 lesion also appears to be heavily calcified. NICOLE-3 flow. 4. Circumflex: Medium caliber vessel. Proximal 80%. Distally small AV groove vessel. Medium caliber OM1 proximal 80% with NICOLE II flow. 5. Right coronary artery: Large and dominant RCA. Diffusely calcified througho ut the proximal and mid RCA. Proximal RCA stent 98% in-stent restenosis. Mild diffuse CAD throughout the mid RCA. Distal RCA 70 to 80%. PDA and PL branches without significant CAD. NICOLE-3 flow. Left heart catheterization: 1. Left ventriculography was not performed. 2. Peak to peak gradient across the aortic valve 5-10 mmHg. Very mild aortic stenosis. 3. Normal LVEDP; 11 mmHg. Medications Administered Current Inpatient Medications Amlodipine Besylate (Amlodipine Besylate 5 Mg Tab) 5 mg PO QAM [facility] Stop: 01/06/23 08:59 Last Admin: 12/07/22 09:21 Dose: 5 mg Aspirin (Aspirin 81 Mg Ectab) 81 mg PO QAM [facility] Stop: 01/02/23 08:59 Last Admin: 12/07/22 09:23 Dose: 81 mg Atorvastatin Calcium (Atorvastatin 40 Mg Tab) 40 mg PO HS [facility] Stop: 01/02/23 20:59 Last Admin: 12/06/22 20:22 Dose: 40 mg Azelastine HCl (Azelastine Hcl 0.1% Nasal 200 Sprays/27,400 Mcg Btl) 1 sprays NA BID [facility] Stop: 01/02/23 08:59 Last Admin: 12/07/22 09:18 Dose: 200 sprays Dextrose (Dextrose 50% 50 Ml Syringe) 25 - 50 ml IV UD PRN; Protocol PRN Reason: Hypoglycemia Protocol Stop: 01/02/23 01:36 Docusate Sodium (Docusate Sodium 100 Mg Cap) 300 mg PO HS [facility] Stop: 01/02/23 20:59 Last Admin: 12/06/22 20:22 Dose: 300 mg Doxazosin Mesylate (Doxazosin Mesylate 4 Mg Tab) 4 mg PO QAM [facility] Stop: 01/02/23 08:59 Last Admin: 12/07/22 09:23 Dose: 4 mg Finasteride (Finasteride 5 Mg Tab) 5 mg PO DAILY [facility] Stop: 01/02/23 08:59 Last Admin: 12/07/22 09:22 Dose: 5 mg Folic Acid (Folic Acid 1 Mg Tab) 1 mg PO DAILY [facility] Stop: 01/02/23 08:59 Last Admin: 12/07/22 09:22 Dose: 1 mg Glucagon (Glucagon For Inj 1 Mg Vial) 1 mg SQ UD PRN; Protocol PRN Reason: Hypoglycemia Protocol Stop: 01/02/23 01:36 Glucose (Glucose 10 Tab/Tube) 4 - 8 tab PO UD PRN; Protocol PRN Reason: Hypoglycemia Treatment Stop: 01/02/23 01:36 Glucose (Glucose 40% Gel 15 Gm Tube) 15 - 30 gm PO UD PRN; Protocol PRN Reason: Hypoglycemia Protocol Stop: 01/02/23 01:36 Heparin Sodium/Dextrose (Heparin Sodium/Dextrose) 25,000 units in 500 mls @ 22 mls/hr IV .[id number] [facility]; Protocol Stop: 01/05/23 10:29 Last Titration: 12/07/22 07:14 Dose: 1,100 units/hr, 22 mls/hr Insulin Aspart (Insulin Aspart Per Unit Charge) 0 units SC Q6 [facility] Stop: 01/06/23 05:59 Last Admin: 12/07/22 05:49 Dose: Not Given Insulin Glargine (Lantus Per Unit Charge) 21 units SQ DAILY [facility] Stop: 01/06/23 08:59 Last Admin: 12/07/22 09:24 Dose: 21 units Isosorbide Mononitrate (Isosorbide [place] Extended Rel 30 Mg Tabcr) 30 mg PO DAILY [facility] Stop: 01/02/23 08:59 Last Admin: 12/07/22 09:20 Dose: 30 mg Levothyroxine Sodium (Levothyroxine Sodium 25 Mcg Tablet) 25 mcg PO DAILYBB [facility] Stop: 01/02/23 06:29 Last Admin: 12/07/22 05:49 Dose: 25 mcg Metoprolol Tartrate (Metoprolol Tartrate 25 Mg Tab) 75 mg PO BID [facility] Stop: 01/03/23 20:59 Last Admin: 12/07/22 09:21 Dose: 75 mg Miscellaneous (Carbohydrates For Hypoglycemia ) 15 - 30 gm PO UD PRN PRN Reason: Hypoglycemia Protocol Stop: 01/02/23 01:36 Miscellaneous Information (Pharmacy Glycemic Mgmt Consult) 1 each N/A UD PRN PRN Reason: Consult Stop: 01/02/23 01:36 Ondansetron HCl (Ondansetron Inj 2 Mg/Ml 2 Ml Vial) 4 mg IV Q6H PRN PRN Reason: Nausea Stop: 01/02/23 01:36 Polyethylene Glycol (Polyethylene (Miralax) 17 Gm Pack) 17 gm PO DAILY [facility] Stop: 01/02/23 08:59 Last Admin: 12/06/22 08:33 Dose: 17 gm Thiamine HCl (Thiamine Hcl 100 Mg Tab) 100 mg PO QDL [facility] Stop: 01/02/23 11:29 Last Admin: 12/06/22 11:45 Dose: 100 mg PG Care Time/CCT Total # of Minutes Spent Total Time Spent with Patient: Total time spent is greater than 50% in coordination of care (as documented) at patient's floor/unit and/or counseling patient: Coding Level of Care Code 28758 SUB INP/OBS CARE 3/50MIN Diagnoses Non-ST elevation (NSTEMI) myocardial infarction I21.4 CAD (coronary artery disease) I25.10 Associated angina: without angina Coronary Disease-Associated Artery/Lesion type: [place] artery [place] vs. transplanted heart: [place] heart V-tach I47.20 NSVT (nonsustained ventricular tachycardia) I47.29 Paroxysmal atrial fibrillation I48.0 Anticoagulant long-term use Z79.01 Dyslipidemia E78.5 Hypertension I10 CKD (chronic kidney disease) N18.9 Ascending aorta dilation I77.810 SOB (shortness of breath) R06.02 (2) CAD (coronary artery disease) Associated angina: without angina Coronary Disease-Associated Artery/Lesion type: [place] artery [place] vs. transplanted heart: platinum heart Qualified Code(s): I25.10 - Atherosclerotic heart disease of [place] coronary artery without angina pectoris
--- NOTE | 2022-12-07 11:11 | Cardiac Catheterization ---
[facility] Data: Order Processing Clerk Cardiac Status Clinical evaluation leading to the procedure CAD Presenation: Non STEMI Anginal Classification: CCS III (dyspnea) Heart Failure: No Cardiogenic Shock within 24 Hours: No Cardiac Arrest within 24 Hours: No Imaging Studies Past 6 Months: Yes Stress Studies Past 6 Months: No Coronary Anatomy Dominant: Right Diagnostic Physicians Name: Alberto Castillo MD Status: Elective Closure Device Percutaneous Entry Location: Radial Closure Device: Radial Band Recommendations: CABG Cardiac Cath Procedure Full Procedure Date December 07, 2022 Pre-Procedure Diagnosis Pre-Procedure Diagnosis: Non STEMI and CAD AUC Score AUC Score: 8 Post-Procedure Diagnosis Post-Procedure Diagnosis: Severe CAD Procedure(s) Performed Procedure(s) Performed: Coronary Angiography and Left Heart Cath Band Sawmill Operator Alberto Castillo MD Wiring Technician(s) Myrtle Estimated Blood Loss Estimated Blood Loss: < 25 ml Medication(s) Medication(s): Fentanyl, Lidocaine 1%, Nicardipine and Versed Summary of Findings Procedures: 1. Coronary angiography 2. Left heart catheterization 3. Moderate sedation 4. Right subclavian artery angiography Indications: 1. Mr. Cagle is a pleasant 82-year-old gentleman with history significant for CAD and prior RCA stent, CKD, hypertension, type 1 diabetes, hypercoagulable state, and dyslipidemia. He presented with A-fib and had NSTEMI with high- sensitivity troponin of approximately 39,000. Has had worsened dyspnea on exertion prior to presentation. Coronary angiography: 1. Heavy calcifications noted throughout the left system and the RCA. 2. Left main: Calcified. Distal left main 50 to 70%. 3. Left anterior descending: Extends to the apex. Diffusely diseased throughout the proximal and mid portions of the LAD with heavy calcification. Ostial LAD approximately 40%. Early mid LAD 70 to 80% followed by diffuse 50 to 70% stenosis. Large D1 without significant CAD. Large D2 with proximal/mid 90% stenosis at bifurcation of lateral branch. D2 lesion also appears to be heavily calcified. NICOLE-3 flow. 4. Circumflex: Medium caliber vessel. Proximal 80%. Distally small AV groove vessel. Medium caliber OM1 proximal 80% with NICOLE II flow. 5. Right coronary artery: Large and dominant RCA. Diffusely calcified throughout the proximal and mid RCA. Proximal RCA stent 98% in-stent restenosis. Mild diffuse CAD throughout the mid RCA. Distal RCA 70 to 80%. PDA and PL branches without significant CAD. NICOLE-3 flow. Left heart catheterization: 1. Left ventriculography was not performed. 2. Peak to peak gradient across the aortic valve 5-10 mmHg. Very mild aortic stenosis. 3. Normal LVEDP; 11 mmHg. Right subclavian artery angiography: 1. Long exchange J-wire did not easily pass. Angiography was notable for patent KEZIA. Probable mild to moderate stenosis in the innominate artery. Glidewire was then advanced into the aorta. Moderate sedation: 1. Sedation start time: 10:24 AM 2. Sedation end time: 10:51 AM Access/catheters: 1. Right radial artery was easily cannulated with a 6 Gibraltarian glide sheath. 2. Angiography of the left system was performed via 6 Gibraltarian JL 3.5 diagnostic catheter. 3. Angiography of the RCA was performed with 6 Gibraltarian JR4 diagnostic catheter. Impression: 1. Severe multivessel CAD. 2. Severe proximal RCA in-stent restenosis. 3. Very mild aortic stenosis. 4. Normal left-sided filling pressure. Plan: 1. Recommend CT surgery evaluation for possible CABG. 2. Continue risk factor modification. Hemodynamics Rest Ao:: 113/42 Final Ao: 119/48 LV: 119/3/11 Recommendations Recommendations: CABG Specimens Specimens: None Radiation Exposure (mGy) 794 mGy. Fluoro time 8.4 min. Contrast (mls) 75 ml Procedural Complication(s) None Disposition PCU I attest to the content of the Intraoperative Record and any orders documented therein. Any exceptions are noted below. [facility] Card Cath Procedure Codes Cardiac Catheterization Procedure 1: Cardiovascular Cath Procedures: 45335 Coronaries and LHC (+/-LV) Moderate Sedation Procedure 1: Sedation/Anesthesia: 21889 Mod Sedation by the same physician;Init15 Min Child Age 5 & Up Procedure 2: Sedation/Anesthesia: 02115 Mod Sedation by the same physician; Ea [id number] Minutes PG Care Time/CCT Total # of Minutes Spent Total Time Spent with Patient: Total time spent is greater than 50% in coordination of care (as documented) at patient's floor/unit and/or counseling patient:
--- NOTE | 2022-12-07 11:12 | Post Anesthesia Assessment ---
Date of Service December 07, 2022 Post Sedation Assessment Vital Signs Temp Pulse Pulse Resp BP Pulse Ox Pulse Ox 12/07/22 11:00 59 L 14 122/75 95 12/07/22 11:05 59 L 16 120/75 98 12/07/22 10:52 66 16 131/63 98 12/07/22 09:40 64 18 167/63 H 96 12/07/22 07:39 36.5 C 67 18 191/70 H 98 12/07/22 03:40 36.5 C 60 20 153/74 H 95 12/07/22 01:32 94 12/06/22 23:55 62 12/06/22 23:18 37.3 C 64 18 148/71 H 96 12/06/22 19:47 36.9 C 68 20 149/67 H 97 12/06/22 16:17 36.8 C 58 L 18 116/52 L 98 12/06/22 13:15 60 12/06/22 12:12 36.8 C 58 L 19 138/66 92 O2 Del Method O2 Del Method O2 Flow Rate 12/07/22 11:00 Room Air 12/07/22 11:05 Room Air 12/07/22 10:52 Room Air 12/07/22 09:40 Room Air 12/07/22 07:39 CPAP 12/07/22 03:40 CPAP 7 12/07/22 01:32 Room Air 12/06/22 23:55 12/06/22 23:18 Room Air 12/06/22 19:47 Room Air 12/06/22 16:17 Room Air 12/06/22 13:15 12/06/22 12:12 Room Air Recovery Score Activity: Moves 4 extremities Respiration: Deep Breath/Cough Circulation: +/-20% PreAnes Value Consciousness: Fully Awake Oxygen Saturation: > 92% On Room Air Post Anesthesia Score: 10 Discharge Sedation Level of Care: Fast Track Phase II Post Sedation Plan On clinical assessment, the patient appears to have tolerated the sedation without complications. Patient is recovering as anticipated. Patient will continue to be monitored by nursing and may be discharged when sedation discharge criteria are met per below protocol. Upon Completions of procedure up to 15 minutes continue every 5 minute vital signs and the P.A.R. score; then discharge to a Phase I or Fast Track to Phase II per the following guidelines: * Discharge Patient to appropriate Phase II area if PAR is 8 or greater or return to pre- procedure baseline. The post - procedure orders will be as directed. * If PAR score is less than 8 or not return to pre-procedure baseline then patient will follow Phase I monitoring till PAR is reached for Phase II. The Phase I may be done in procedure room or may call to secure a Phase I area. * If naloxone or flumazenil are used for reversal, hold in Phase I for continued monitoring from when last reversal dose was given for a minimum of 60 minutes or longer pending the nurse and/or physician discretion of patient condition before discharge to Phase II. Please call the Sedation Physician to re-evaluate and complete post-note for discharge to Phase II area. Do NOT discharge from procedure sedation or Phase 1 until post- sedation evaluation note is complete by procedure /sedation MD Sedation Discharge Instructions to be given to the patient at discharge to home.
[2022-12-07] MEDS ORDERED: SODIUM CHLORIDE 0.9% 1000ML 1,000 ML IV SCH (11:15)
[2022-12-07] MEDS: THIAMINE HCL 100 MG TAB PO SCH (11:51)
--- NOTE | 2022-12-07 13:31 | Pharmacy Report ---
Pharmacy Glycemic Short Note 2 - Date of Service December 07, 2022 - Glycemic Short BSG Results (Last 24 hours): 12/06/22 12/06/22 12/06/22 16:13 20:31 22:59 Glucose POC Glucose 214 H 169 H 90 12/07/22 12/07/22 12/07/22 05:48 06:24 11:35 Glucose 119 H POC Glucose 120 H 119 H OUTPATIENT ANTIDIABETIC REGIMEN: * Toujeo 28 units SC daily * Humalog TIDM (insulin:carb ratio of 3, TDD up to 105 units) HbA1c: 8.3% (11/16/22) ASSESSMENT: 12/07/22: * Patient received total of 68 units of insulin yesterday, of which 28 units were basal (home dose) * Fasting BSG 119 mg/dL - patient NPO for cardiac cath, decreased basal by ~25% for NPO status 12/04/22: * BSGs elevated yesterday, ranging 202->300 mg/dL * Patient received 88 units of insulin (23 units of basal, 55 units of SC bolus, and 10 units of IV bolus) * Remains on heparin gtt (mixed in dextrose) * Fasting BSG improved at 198 mg/dL this morning, will increase to patient's home dose of basal this morning * Given persistent hyperglycemia yesterday, will tighten carb ratio to home parameters 12/03/22: * PL is an 82 year old male who presented to ED overnight w/ increased shortness of breath * Patient found to be in afib w/ RVR, hyperglycemic (BSG > 500 mg/dL), and to have elevated troponin * Cardiology consulted * Patient has history of T1DM and is followed by [facility] * Currently receiving diltiazem gtt and heparin gtt (both mixed in dextrose) * Given uncertainty with diet (pending cardiology consult) - will plan to utilize BID basal insulin for now * Initial hyperglycemia on admission treated with IV insulin bolus and SC Novolo g, BSG of 277 mg/dL this morning PLAN FOR INPATIENT GLYCEMIC CONTROL: * Basal insulin * Lantus 21 units SC daily (npo 12/07) * Will evaluate basal 7/4 AM and see if diet ordered * Bolus insulin * NovoLog per scale ACHS or Q6hrs while NPO * Goal Range: Low 120 mg/dL - High 150 mg/dL * Correction Factor: 50 mg/dL/unit * Nutritional / Prandial insulin per carb ratio of 1 unit per 4 grams CHO consumed
--- NOTE | 2022-12-07 14:02 | Hospitalist Progress Note ---
Date of Service December 07, 2022 Assessment & Plan (1) Multi-vessel coronary artery stenosis: Plan: Cardiac cath showed evidence of multi vessel CAD Plan is transfer to [facility] for CABG Continue Heparin infusion (2) V-tach: Plan: Runs of non sustained V tach on 12/03 Could be indicative of ischemia per cardiology Cath was done today, which showed multivessel disease plan is for CABG at [facility] (3) Atrial fibrillation with rapid ventricular response: Plan: Converted to NSR On Coumadin at home, was held on admission Continue heparin drip (4) SOB (shortness of breath): Plan: Now resolved, Possibly secondary to atrial fibrillation. (5) Acute hyperglycemia: Plan: Type I DM. Fairly well controlled with last NlxD4O=7.3 on 11/16/22 Blood glucose is now under better control -Lantus 12u BID with ISS -Goal blood sugar 110-180 -Pharmacy Glycemic Management consultation (6) Elevated troponin: Plan: Patient denies chest pain. Possibly demand ischemia - rate related -Telemetry monitoring -Trop trending down, from 39k to 35 k - 2D echo did not show any wall motion abnormality, EF 60-65% -Cath showed multivessel disease -Plan is for CABG (7) Factor V Leiden mutation: Plan: Patient on Coumadin anticoagulation at home -Hold Coumadin in view of anticipated cath on wednesday, on Heparin drip (8) Hypothyroidism: Plan: Chronic. Stable -Continue Synthroid 25mcg po daily Monitor right arm hematoma for expansion (no evidence of dvt on duplex) Plan Code - Full per discussion with patient Dispo - Transfer to [facility] Admission and Anticipated Discharge Date Admission Date: December 03, 2022 Subjective patient seen and examined, he is post cardiac cath Review of Systems Review of Systems: All systems reviewed are negative, apart from the ones contained in the history. Physical Exam Physical Exam: The patient is awake, alert and oriented 3, well developed and well nourished, normocephalic and atraumatic, lying in bed and in no acute distress. HEENT--PERRL, EOMI, mucous membranes and oropharynx mildly dry Neck--supple. No JVD. No bruits. Thyroid normal, trachea midline, no adenopathy. Heart--normal S1 and S2. No murmurs, rubs or gallops. Lungs--clear bilaterally, no respiratory distress, no accessory muscle use. Abdomen--normal bowel sounds and soft. Mild epigastric and left sided abdominal pain Extremities--no cyanosis or clubbing. No edema. Dermatologic--normal skin turgor, normal color, no abnormal lymph nodes, no rash. Neurologic--cranial nerves II through XII grossly intact. Rheumatologic--normal range of motion. Psychiatric--normal affect. Results & Data Results & Data Vital Signs (Past 12 Hours) Vital Signs Temp Pulse Resp BP Pulse Ox O2 Del Method O2 Flow Rate 12/07/22 13:26 56 L 18 138/72 97 Room Air 12/07/22 12:26 57 L 18 148/75 H 97 Room Air 12/07/22 11:56 97.3 F L 55 L 18 136/69 95 Room Air 12/07/22 11:00 59 L 14 122/75 95 Room Air 12/07/22 11:05 59 L 16 120/75 98 Room Air 12/07/22 10:52 66 16 131/63 98 Room Air 12/07/22 09:40 64 18 167/63 H 96 Room Air 12/07/22 07:39 97.7 F 67 18 191/70 H 98 CPAP 12/07/22 03:40 97.7 F 60 20 153/74 H 95 CPAP 7 PG Care Time/CCT Total # of Minutes Spent Total Time Spent with Patient: Total time spent is greater than 50% in coordination of care (as documented) at patient's floor/unit and/or counseling patient: Coding Level of Care Code 10379 SUB INP/OBS CARE 2/35MIN Diagnoses Multi-vessel coronary artery stenosis I25.10 V-tach I47.20 Atrial fibrillation with rapid ventricular response I48.91 SOB (shortness of breath) R06.02 Acute hyperglycemia R73.9 Elevated troponin R77.8 Factor V Leiden mutation D68.51 Hypothyroidism E03.9 Time Spent (min) 35
[2022-12-07] MEDS: HEPARIN SODIUM/DEXTROSE 25,000 UNITS/500 ML BAG IV SCH (14:10)
[2022-12-07] MEDS: POLYETHYLENE (MIRALAX) 17 GM PACK PO SCH ×2 (14:10→18:36)
[2022-12-07] MEDS: ATORVASTATIN 40 MG TAB PO SCH (19:59)
[2022-12-07] MEDS: DOCUSATE SODIUM 100 MG CAP PO SCH (20:00)
[2022-12-07 23:46] LABS: Partial Thromboplastin Ratio 1.4
[2022-12-08] MEDS: LEVOTHYROXINE SODIUM 25 MCG TABLET PO SCH (05:18)
[2022-12-08] MEDS: HEPARIN SODIUM/DEXTROSE 25,000 UNITS/500 ML BAG IV SCH ×2 (07:07→11:57)
[2022-12-08 08:09] LABS: Partial Thromboplastin Time 56.3 Seconds (21.0-31.0)
[2022-12-08] MEDS: DOXAZosin MESYLATE 4 MG TAB PO SCH (08:32)
[2022-12-08] MEDS: METOPROLOL TARTRATE 25 MG TAB PO SCH ×2 (08:32→20:18)
[2022-12-08] MEDS: INSULIN ASPART PER UNIT CHARGE SC SCH ×4 (08:32→21:19)
[2022-12-08] MEDS: FINASTERIDE 5 MG TAB PO SCH (08:33)
[2022-12-08] MEDS: amLODIPine BESYLATE 5 MG TAB PO SCH (08:33)
[2022-12-08] MEDS: ISOSORBIDE MONO EXTENDED REL 30 MG TABCR PO SCH (08:33)
[2022-12-08] MEDS: FOLIC ACID 1 MG TAB PO SCH (08:33)
[2022-12-08] MEDS: AZELASTINE HCL 0.1% NASAL 200 SPRAYS/27,400 MCG BTL SCH ×2 (08:33→20:18)
[2022-12-08] MEDS: ASPIRIN 81 MG ECTAB PO SCH (08:33)
[2022-12-08] MEDS: POLYETHYLENE (MIRALAX) 17 GM PACK PO SCH (08:34)
[2022-12-08 08:40] LABS: Hematocrit (blood only) 37.4 % (42.0-52.0); Hemoglobin 12.9 g/dl (14.0-18.0); Mean Corpuscular Hemoglobin 32.6 pg (25.0-34.0); Mean Corpuscular Hgb Conc 34.5 g/dL (32.0-36.0); Mean Corpuscular Volume 94.4 fL (80.0-100.0); Mean Platelet Volume 10.7 fL (9.4-12.4); Platelet Count 153 K/uL (130-400); RDW Coefficient of Variation 12.5 % (11.5-14.5); RDW Standard Deviation 43.3 fL (36.4-46.3); Red Blood Count 3.96 M/uL (4.70-6.10); White Blood Count 6.47 K/ul (4.8-10.8)
[2022-12-08 08:54] LABS: BUN Creatinine Ratio 18.5 (10-20); Creatinine Clr Calc Pharmacy 52.5 ml/min; Est GFR (African American) 65.5 ml/min; Est GFR (Non-African American) 56.5 ml/min; Potassium 4.5 mmol/L (3.5-5.1)
[2022-12-08] MEDS ORDERED: LANTUS PER UNIT CHARGE SQ SCH (09:00)
--- NOTE | 2022-12-08 11:50 | Discharge Summary ---
Date of Service December 08, 2022 Admission HPI Per Admitting Provider Sheng Cagle is an 82yo male with history of DM, AF, CAD, GERD and Factor V Leiden on Coumadin anticoagulation presenting with shortness of breath. He reports baseline SOB on exertion but over the last several days he has had increased ACOSTA as well as SOB at rest. He had a stable cough. He had some dizziness this AM after getting out of bed and fell on his right shoulder- no LOC or head trauma. Denies fever, chills, chest pain, abdominal pain, nausea, vomiting, diarrhea. In the ER patient was found to be in atrial fibrillation with RVR - rate in 120's. Initial EKG with some ST-T wave changes - lateral depressions and TWI. He was given Metoprolol 5mg IV with improvement in heart rate as well as EKG changes. Elevated blood sugar of 549. Patient reports that his blood sugars are typically high at night - in the 300's. He is otherwise fairly well controled Elevated troponin = 387.1. No chest pain. ER Course: Metoprolol 5mg IV NSS x 1L Insulin 10u IV Diltiazem 10mg IV then gtt ASA 324mg LR x 1L Principal Diagnosis multivessel disease Discharge Exam The patient is awake, alert and oriented 3, well developed and well nourished, normocephalic and atraumatic, lying in bed and in no acute distress. HEENT--PERRL, EOMI, mucous membranes and oropharynx mildly dry Neck--supple. No JVD. No bruits. Thyroid normal, trachea midline, no adenopathy. Heart--normal S1 and S2. No murmurs, rubs or gallops. Lungs--clear bilaterally, no respiratory distress, no accessory muscle use. Abdomen--normal bowel sounds and soft. Mild epigastric and left sided abdominal pain Extremities--no cyanosis or clubbing. No edema. Dermatologic--normal skin turgor, normal color, no abnormal lymph nodes, no rash. Neurologic--cranial nerves II through XII grossly intact. Rheumatologic--normal range of motion. Psychiatric--normal affect. Discharge Data Allergies Allergy/AdvReac Type Severity Reaction Status Date / Time clindamycin Allergy Intermediate Rash Verified 12/07/22 09:49 Sulfa (Sulfonamide Allergy Intermediate HIVES Verified 12/07/22 09:49 Antibiotics) lisinopril Allergy Unknown Unknown Verified 12/07/22 09:49 Penicillins Allergy Unknown Unknown Verified 12/07/22 09:49 Consultations 12/02/22 23:51 ED Decision to Admit Stat 12/03/22 01:37 Consult Cardiology Routine Procedures Performed Operation Date: 12/07/22 09:45 Actual Procedures s Cineradiography w/Routine Exam - Alberto Castillo MD p Cath, Left with Cors and Vent - Alberto Castillo MD Ordered Studies 12/02/22 22:23 CT head/brain wo con Stat 12/03/22 17:09 US venous duplex arm [US venous doppler UE RT] Routine 12/07/22 09:26 CL Cath Imgs for PACS use only Routine Hospital Course (1) Multi-vessel coronary artery stenosis: Cardiac cath showed evidence of multi vessel CAD Plan is transfer to [facility] for CABG Continue Heparin infusion (2) V-tach: Runs of non sustained V tach on 12/03 Could be indicative of ischemia per cardiology Cath was done today, which showed multivessel disease plan is for CABG at [facility] (3) Atrial fibrillation with rapid ventricular response: Converted to NSR On Coumadin at home, was held on admission Continue heparin drip (4) SOB (shortness of breath): Now resolved, Possibly secondary to atrial fibrillation. (5) Acute hyperglycemia: Type I DM. Fairly well controlled with last GudW3A=9.3 on 11/16/22 Blood glucose is now under better control -Lantus 12u BID with ISS -Goal blood sugar 110-180 -Pharmacy Glycemic Management consultation (6) Elevated troponin: Patient denies chest pain. Possibly demand ischemia - rate related -Telemetry monitoring -Trop trending down, from 39k to 35 k - 2D echo did not show any wall motion abnormality, EF 60-65% -Cath showed multivessel disease -Plan is for CABG (7) Factor V Leiden mutation: Patient on Coumadin anticoagulation at home -Hold Coumadin in view of anticipated cath on wednesday, on Heparin drip (8) Hypothyroidism: Chronic. Stable -Continue Synthroid 25mcg po daily Monitor right arm hematoma for expansion (no evidence of dvt on duplex) Plan Code - Full per discussion with patient Dispo - Transfer to [facility] when a bed is available Total Time Total Time Spent Total Time Spent (In Minutes): 35 Discharge Plan Discharge Items Patient Disposition: Transfer Acute [facility] Reason For Visit: FALL,SOB Discharge Diagnosis: Multivessel disease Condition on Discharge: Fair Activity: Per Instructions section Non-emergency contact: Primary Care Provider and Nuclear Plant Construction Worker Call non-emergency contact if: you have any medication questions Follow-up/Referrals: Brittni Sanchez PA-C [Physician Counter Top Assembler] - 12/10/22 3:00 pm Diet: Regular Addtl Attending Provider Instructions: please make appointment to follow up with your regular PCP ACTIVITY RECOMMENDATIONS: Excess manipulation of the wrist should be avoided for the next 24-48 hours. * No lifting over 2 pounds (approximately a 1/2 gallon of milk) with the utilized arm for 24 hours. * No strenuous activity such as bowling or tennis for 3 days. * Keep the site of the procedure covered with a bandage for 24 hours. *You may shower the day after the procedure. Do not take a tub bath or submerge the puncture site in water for the next 3 days. *Do not operate any motorized equipment for 3 days. SPECIAL CARE INSTRUCTIONS: The site may be slightly bruised and sore following your procedure. Should any of the following occur, contact the Dr. who performed your procedure. 1. Redness/inflammation, swelling, chills, or fever, or colored drainage at procedure site within 3-7 days after your procedure. 2. Coldness, discoloration, ongoing numbness, severe pain, or swelling. Expect mild tingling of hand and tenderness at the puncture site for up to three days. If this persists beyond three days, or other symptoms develop, notify the Dr. who performed your procedure. BLEEDING: If the procedure site on your wrist begins to bleed, do not panic 1. Place 1 or 2 fingers firmly just slightly above the insertion site to stop the bleeding. You may be able to feel your pulse as you hold pressure. 2. Lift your finger after 5 minutes to see if the bleeding has stopped. 3. Once the bleeding has stopped, gently wipe the wrist area clean with a bandage. * If the bleeding from your wrist does not stop after 10 minutes, or if there is a large amount of bleeding or spurting, call 911 (do not drive yourself to the hospital). SKIN IRRITATION: * You may experience some redness and/or swelling in the area where radiation was administered. If any skin irritation occurs, please contact your family physician. FOLLOW UP VISIT: Keep any scheduled doctor appointments. Pending Studies at Discharge: No Skilled Items Patient informed of condition?: Yes DNR: No Discharge Level of Care: Other Communicable Disease: No Discharge Prognosis: Stable Lines: Peripheral IV Urinary Catheter: No Medications and DC Order Prescriptions: New metoprolol tartrate 50 mg Tablet 50 mg PO BID 30 Days Qty: 60 0RF Continued multivitamin Tablet 1 tab PO QDL Qty: 0 docusate sodium 100 mg Capsule 300 mg PO HS Qty: 0 magnesium 250 mg Tablet 250 mg PO QDL Qty: 0 (DME) FreeStyle Anna 2 Sensor Kit See Rx Instructions .Route Qty: 2 5RF Rx Instructions: Change every 14 days amlodipine 2.5 mg tablet 2.5 mg PO PM Qty: 90 3RF atorvastatin 40 mg tablet 40 mg PO HS Qty: 90 3RF doxazosin 4 mg tablet 4 mg PO QAM Qty: 90 3RF levothyroxine 25 mcg tablet 25 mcg PO QAM Qty: 90 3RF warfarin 5 mg tablet 5 mg PO DAILY@1500 Qty: 100 3RF Protocol: Dose Management Condition: Wednesday Dose/Route: 5 mg Instruction: 1 x 5 mg tablet Condition: Wednesday Dose/Route: 2.5 mg Instruction: 0.5 x 5 mg tablets Condition: Wednesday Dose/Route: 5 mg Instruction: 1 x 5 mg tablet Condition: Wednesday Dose/Route: 5 mg Instruction: 1 x 5 mg tablet Condition: Dose/Route: 5 mg Instruction: 1 x 5 mg tablet Condition: Wednesday Dose/Route: 2.5 mg Instruction: 0.5 x 5 mg tablets Condition: Wednesday Dose/Route: 5 mg Instruction: 1 x 5 mg tablet Protocol Text: Adjustment Start Date: Wednesday11/24/22 INR Value: 2.4 INR Date: 11/24/22 Recheck Date: 12/08/22 (DME) pen needle, diabetic [Comfort EZ Pen [place]] 31 gauge x 1/4" needle See Rx Instructions .Route Qty: 150 5RF Rx Instructions: As directed to use with insulin pen, QID azelastine 137 mcg (0.1 %) aerosol,spray 1 spray intranasal BID Qty: 90 3RF Rx Instructions: administer into each nostril nitroglycerin [Nitrostat] 0.4 mg tablet, sublingual 0.4 mg sublingual UD PRN (Reason: Chest Pain) Qty: 25 3RF Rx Instructions: q 5min for chest pain up to 3 doses. finasteride 5 mg tablet 5 mg PO DAILY Qty: 10 0RF aspirin 81 mg tablet,delayed release (DR/EC) 81 mg PO QAM (DME) Ketone Urine Test Strip See Rx Instructions .MEDSUPPLY Qty: 50 2RF Rx Instructions: As directed to check ketones in urine if blood sugar is higher than 300 cholecalciferol (vitamin D3) 50 mcg (2,000 unit) capsule 50 mcg PO DAILY Toujeo SoloStar U-300 Insulin 300 unit/mL (1.5 mL) insulin pen 28 unit subcut DAILY insulin lispro [Humalog KwikPen Insulin] 100 unit/mL insulin pen See Rx Instructions subcut TID Rx Instructions: use insulin to carbohydrate ratio of 1:3; up to TDD 105 units isosorbide mononitrate 30 mg tablet extended release 24 hr 30 mg PO DAILY glucagon HCl [Glucagon (HCl) Emergency Kit] 1 mg recon soln 1 mg subcut Q20M PRN (Reason: hypoglycemia) Qty: 1 1RF Rx Instructions: until target blood sugar attained lutein 20 mg capsule 20 mg PO QDL thiamine HCl (vitamin B1) 100 mg tablet 100 mg PO QDL fluticasone propionate 50 mcg/actuation spray,suspension 2 sprays INTNAS DAILY PRN (Reason: Nasal Congestion) polyethylene glycol 3350 [Miralax] 17 gram/dose powder 17 g PO DAILY folic acid 1 mg tablet 1 mg PO DAILY Discontinued metoprolol tartrate 25 mg tablet 25 mg PO BID Qty: 180 2RF Rx Instructions: take 1 tab PO BID Discharge Orders: Discharge Order (Routine); Ordered 12/08/22 Ordered By: Akin Henriquez/Other Patient Handouts: High Blood Sugar (Hyperglycemia), Managing Type 2 Diabetes, Special Foot Care for Diabetes Admission Data Admit Date/Time: 12/03/22 00:44 Attending Provider: Akin Robles Admit Provider: Suze Hughes Primary Care Provider: Guilherme Moe Other Providers: Suze Hughes ; Earl Pack Coding Level of Care Code 62230 INP/OBS DISCH >30 MIN Diagnoses Multi-vessel coronary artery stenosis I25.10 V-tach I47.20 Atrial fibrillation with rapid ventricular response I48.91 SOB (shortness of breath) R06.02 Acute hyperglycemia R73.9 Elevated troponin R77.8 Factor V Leiden mutation D68.51 Hypothyroidism E03.9 Time Spent (min) 35
[2022-12-08] MEDS: THIAMINE HCL 100 MG TAB PO SCH (11:58)
--- NOTE | 2022-12-08 12:40 | Cardiology Progress Note ---
Date of Service December 08, 2022 Assessment & Plan (1) Non-ST elevation (NSTEMI) myocardial infarction: (2) CAD (coronary artery disease): (3) NSVT (nonsustained ventricular tachycardia): (4) Paroxysmal atrial fibrillation: (5) Anticoagulant long-term use: (6) Dyslipidemia: (7) Hypertension: (8) CKD (chronic kidney disease): (9) Ascending aorta dilation: (10) SOB (shortness of breath): Plan ASSESSMENT/PLAN: 1. NSTEMI: No angina but presented with A-fib and has had worsening dyspnea on exertion as an outpatient. Peak high-sensitivity troponin was 39,161. Cardiac catheterization demonstrated severe multivessel CAD. 2. CAD s/p RCA PCI: No angina here. Has had worsening dyspnea on exertion and now found to have severe multivessel CAD. Intermittent dyspnea on exertion in his hospital room. Is for to [facility] for consideration of CABG when bed available. Continue aspirin 81 mg daily indefinitely. Continue beta-kristin and high intensity statin therapy. 3. Paroxysmal atrial fibrillation: Sinus rhythm today. Continue beta-kristin. Anticoagulation therapy is indicated but he chronically is on anticoagulation therapy due to hypercoagulable state with left lower extremity DVT and extensive pulmonary emboli in the past. Diagnosed with factor V Leiden and anti cardiolipin antibody syndrome. Continue anticoagulation therapy. He has not received warfarin here. Interested in DOAC agent rather than warfarin, which he had chronically been taking. 4. Ventricular tachycardia: Reported earlier this hospital stay. Could be due to myocardial injury given timing. Continue beta-kristin. Rhythm strip not available for review but an episode of atrial tachycardia noted from 12/03/2022. 5. Hypertension: Blood pressure at times normotensive and other times hypertensive. Amlodipine increased yesterday. Titrate medical therapy. Not on CONSTANTIN inhibitor due to previous adverse reaction. Beta-krsitin has been titrated. Optimize blood pressure control, especially in light of multivessel CAD. 6. Dyslipidemia: Continue high intensity statin therapy. Most recent LDL was reasonably controlled, <70. 7. Hypercoagulable state: Should remain on anticoagulation therapy. On heparin drip. 8. Dilated ascending aorta: Surveillance is no longer being performed as patient/family was not interested in pursuing aorta repair/replacement if necessary in the future given his other comorbidities. Avoid strenuous lifting for which the Valsalva maneuver is required. Continue beta-kristin therapy. He remains asymptomatic. 9. Disposition: Transfer to [facility] for evaluation for CABG, when bed available. Has been accepted by Dr. Bocanegra. Cardiology will continue to follow. Admission and Anticipated Discharge Date Admission Date: December 03, 2022 Subjective Patient was seen this morning. He denies chest pain. He had dyspnea on exertion while walking to the restroom. He denies orthopnea, syncope, near sync ope, palpitations, or edema. He has not had any significant issues from his right radial cath site. He is awaiting transfer to [facility]. He was alone in his hospital room. Physical Exam Physical Exam: Gen.: No acute distress. Alert. HEENT: Anicteric sclera. Neck: No JVD. Cardiac: Regular, without ectopy. Distant heart sounds. 1/6 early peaking systolic ejection murmur. No rubs or gallops. Pulmonary: Clear to auscultation bilaterally without wheezes, rales, or rhonchi. Abdomen: Soft, nontender, nondistended, with normoactive bowel sounds. No bruits noted. Extremities: Right radial cath site is clean, dry, and intact without erythema or discharge. 1+ bilateral radial pulses. 2+ posterior tibialis pulses bilaterally. Trace bilateral lower extremity edema. No cyanosis. Right upper extremity hematoma and ecchymosis (from fall earlier during hospital stay). Results & Data Vital Signs (Past 12 Hours) Vital Signs Temp Pulse Pulse Resp BP Pulse Ox O2 Del Method 12/08/22 11:04 36.5 C 62 19 162/61 H 96 Room Air 12/08/22 08:00 57 L 12/08/22 06:57 36.6 C 63 19 185/69 H 97 Room Air 12/08/22 03:30 36.7 C 56 L 17 130/60 98 CPAP Laboratory Results Laboratory Results - last 24 hr 12/07/22 12/07/22 12/07/22 16:26 19:59 22:58 WBC RBC Hgb Hct MCV MCH MCHC RDW Std Deviation RDW Coeff of Mary Plt Count MPV APTT 39.0 H PTT Ratio 1.4 Sodium Potassium Chloride Carbon Dioxide Anion Gap BUN Creatinine Est Cr Clr Drug Dosing Est GFR ( Amer) Est GFR (Non-Af Amer) BUN/Creatinine Ratio Glucose POC Glucose 207 H 185 H Calcium 12/08/22 12/08/22 12/08/22 06:38 07:23 08:07 WBC 6.47 RBC 3.96 L Hgb 12.9 L Hct 37.4 L MCV 94.4 MCH 32.6 MCHC 34.5 RDW Std Deviation 43.3 RDW Coeff of Mary 12.5 Plt Count 153 MPV 10.7 APTT 56.3 H* PTT Ratio 2.0 Sodium Potassium Chloride Carbon Dioxide Anion Gap BUN Creatinine Est Cr Clr Drug Dosing Est GFR ( Amer) Est GFR (Non-Af Amer) BUN/Creatinine Ratio Glucose POC Glucose 232 H Calcium 12/08/22 12/08/22 08:07 11:03 WBC RBC Hgb Hct MCV MCH MCHC RDW Std Deviation RDW Coeff of Mary Plt Count MPV APTT PTT Ratio Sodium 137 Potassium 4.5 Chloride 105 Carbon Dioxide 26 Anion Gap 6 BUN 22 Creatinine 1.19 Est Cr Clr Drug Dosing 52.5 Est GFR ( Amer) 65.5 Est GFR (Non-Af Amer) 56.5 BUN/Creatinine Ratio 18.5 Glucose 224 H POC Glucose 315 H* Calcium 9.0 Diagnostic Findings Telemetry personally reviewed: Sinus rhythm. Chart reviewed. Labs reviewed and notable for stable renal function, normal potassium, stable hemoglobin. Medications Administered Current Inpatient Medications Amlodipine Besylate (Amlodipine Besylate 5 Mg Tab) 5 mg PO QAM [facility] Stop: 01/06/23 08:59 Last Admin: 12/08/22 08:33 Dose: 5 mg Aspirin (Aspirin 81 Mg Ectab) 81 mg PO QAM [facility] Stop: 01/02/23 08:59 Last Admin: 12/08/22 08:33 Dose: 81 mg Atorvastatin Calcium (Atorvastatin 40 Mg Tab) 40 mg PO HS [facility] Stop: 01/02/23 20:59 Last Admin: 12/07/22 19:59 Dose: 40 mg Azelastine HCl (Azelastine Hcl 0.1% Nasal 200 Sprays/27,400 Mcg Btl) 1 sprays NA BID [facility] Stop: 01/02/23 08:59 Last Admin: 12/08/22 08:33 Dose: 1 sprays Dextrose (Dextrose 50% 50 Ml Syringe) 25 - 50 ml IV UD PRN; Protocol PRN Reason: Hypoglycemia Protocol Stop: 01/02/23 01:36 Docusate Sodium (Docusate Sodium 100 Mg Cap) 300 mg PO HS [facility] Stop: 01/02/23 20:59 Last Admin: 12/07/22 20:00 Dose: 300 mg Doxazosin Mesylate (Doxazosin Mesylate 4 Mg Tab) 4 mg PO QAM [facility] Stop: 01/02/23 08:59 Last Admin: 12/08/22 08:32 Dose: 4 mg Finasteride (Finasteride 5 Mg Tab) 5 mg PO DAILY [facility] Stop: 01/02/23 08:59 Last Admin: 12/08/22 08:33 Dose: 5 mg Folic Acid (Folic Acid 1 Mg Tab) 1 mg PO DAILY [facility] Stop: 01/02/23 08:59 Last Admin: 12/08/22 08:33 Dose: 1 mg Glucagon (Glucagon For Inj 1 Mg Vial) 1 mg SQ UD PRN; Protocol PRN Reason: Hypoglycemia Protocol Stop: 01/02/23 01:36 Glucose (Glucose 10 Tab/Tube) 4 - 8 tab PO UD PRN; Protocol PRN Reason: Hypoglycemia Treatment Stop: 01/02/23 01:36 Glucose (Glucose 40% Gel 15 Gm Tube) 15 - 30 gm PO UD PRN; Protocol PRN Reason: Hypoglycemia Protocol Stop: 01/02/23 01:36 Heparin Sodium/Dextrose (Heparin Sodium/Dextrose) 25,000 units in 500 mls @ 24 mls/hr IV .[id number] [facility]; Protocol Stop: 01/05/23 10:29 Last Admin: 12/08/22 11:57 Dose: 1,200 units/hr, 24 mls/hr Insulin Aspart (Insulin Aspart Per Unit Charge) 0 units SC ACHS [facility]; Protocol Stop: 01/06/23 16:29 Last Admin: 12/08/22 11:57 Dose: 14 units Insulin Glargine (Lantus Per Unit Charge) 28 units SQ DAILY [facility]; Protocol Stop: 01/07/23 08:59 Last Admin: 12/08/22 08:31 Dose: 28 units Isosorbide Mononitrate (Isosorbide [place] Extended Rel 30 Mg Tabcr) 30 mg PO DAILY [facility] Stop: 01/02/23 08:59 Last Admin: 12/08/22 08:33 Dose: 30 mg Levothyroxine Sodium (Levothyroxine Sodium 25 Mcg Tablet) [facility]: 01/02/23 06:29 Last Admin: 12/08/22 05:18 Dose: 25 mcg Metoprolol Tartrate (Metoprolol Tartrate 25 Mg Tab) 75 mg PO BID [facility] Stop: 01/03/23 20:59 Last Admin: 12/08/22 08:32 Dose: 75 mg Miscellaneous (Carbohydrates For Hypoglycemia ) 15 - 30 gm PO UD PRN PRN Reason: Hypoglycemia Protocol Stop: 01/02/23 01:36 Miscellaneous Information (Pharmacy Glycemic Mgmt Consult) 1 each N/A UD PRN PRN Reason: Consult Stop: 01/02/23 01:36 Ondansetron HCl (Ondansetron Inj 2 Mg/Ml 2 Ml Vial) 4 mg IV Q6H PRN PRN Reason: Nausea Stop: 01/02/23 01:36 Polyethylene Glycol (Polyethylene (Miralax) 17 Gm Pack) 17 gm PO DAILY [facility] Stop: 01/02/23 08:59 Last Admin: 12/08/22 08:34 Dose: 17 gm Thiamine HCl (Thiamine Hcl 100 Mg Tab) 100 mg PO QDL [facility] Stop: 01/02/23 11:29 Last Admin: 12/08/22 11:58 Dose: 100 mg PG Care Time/CCT Total # of Minutes Spent Total Time Spent with Patient: Total time spent is greater than 50% in coordination of care (as documented) at patient's floor/unit and/or counseling patient: Coding Level of Care Code 13405 SUB INP/OBS CARE 3/50MIN Diagnoses Non-ST elevation (NSTEMI) myocardial infarction I21.4 CAD (coronary artery disease) I25.10 Coronary Disease-Associated Artery/Lesion type: [place] artery [place] vs. transplanted heart: [place] heart Associated angina: without angina NSVT (nonsustained ventricular tachycardia) I47.29 Paroxysmal atrial fibrillation I48.0 Anticoagulant long-term use Z79.01 Dyslipidemia E78.5 Hypertension I10 CKD (chronic kidney disease) N18.9 Ascending aorta dilation I77.810 SOB (shortness of breath) R06.02 (2) CAD (coronary artery disease) Coronary Disease-Associated Artery/Lesion type: [place] artery [place] vs. transplanted heart: [place] heart Associated angina: without angina Qualified Code(s): I25.10 - Atherosclerotic heart disease of [place] coronary artery without angina pectoris
--- NOTE | 2022-12-08 13:57 | Pharmacy Report ---
Pharmacy Glycemic Short Note 2 - Date of Service December 08, 2022 - Glycemic Short BSG Results (Last 24 hours): 12/07/22 12/07/22 12/08/22 16:26 19:59 07:23 Glucose POC Glucose 207 H 185 H 232 H 12/08/22 12/08/22 08:07 11:03 Glucose 224 H POC Glucose 315 H* OUTPATIENT ANTIDIABETIC REGIMEN: * Toujeo 28 units SC daily * Humalog TIDM (insulin:carb ratio of 3, TDD up to 105 units) * HbA1c: 8.3% (11/16/22) ASSESSMENT: 12/08: * Patient was NPO for a cardiac cath yesterday and didn't eat until the evening time. Received only 37 units of insulin secondary to this. Ordered a new diet and tolerating well this morning. * Fasting BSG increased to 232 mg/dL today. Will increase basal back to previous dose of 28 units. * Received call from RN that lunchtime BSG was elevated at 315. At that time, I tightened Novolog parameters to match home dose. Patient tends to overcorrect in the evening. Will need to monitor closely. 12/07: * Patient received total of 68 units of insulin yesterday, of which 28 units were basal (home dose) * Fasting BSG 119 mg/dL - patient NPO for cardiac cath, decreased basal by ~25% for NPO status 12/04: * BSGs elevated yesterday, ranging 202->300 mg/dL * Patient received 88 units of insulin (23 units of basal, 55 units of SC bolus, and 10 units of IV bolus) * Remains on heparin gtt (mixed in dextrose) * Fasting BSG improved at 198 mg/dL this morning, will increase to patient's home dose of basal this morning * Given persistent hyperglycemia yesterday, will tighten carb ratio to home parameters 12/03: * PL is an 82 year old male who presented to ED overnight w/ increased shortness of breath * Patient found to be in afib w/ RVR, hyperglycemic (BSG > 500 mg/dL), and to have elevated troponin * Cardiology consulted * Patient has history of T1DM and is followed by [place] [facility] * Currently receiving diltiazem gtt and heparin gtt (both mixed in dextrose) * Given uncertainty with diet (pending cardiology consult) - will plan to utilize BID basal insulin for now * Initial hyperglycemia on admission treated with IV insulin bolus and SC Novolog, BSG of 277 mg/dL this morning PLAN FOR INPATIENT GLYCEMIC CONTROL: * Basal insulin * Lantus 28 units SC daily * Bolus insulin * NovoLog per scale ACHS or Q6hrs while NPO * Goal Range: Low 120 mg/dL - High 150 mg/dL * Correction Factor: 45 mg/dL/unit * Nutritional / Prandial insulin per carb ratio of 1 unit per 3 grams CHO consumed
[2022-12-08] MEDS: ATORVASTATIN 40 MG TAB PO SCH (20:18)
[2022-12-08] MEDS: DOCUSATE SODIUM 100 MG CAP PO SCH (20:18)
== END 2022-12-09 03:10 | disposition short-term general hospital (02) | DRG 287 ==
LOC: ED 21:43 → 2S 12-03 00:44 → SUATTDRO 12-03 00:44 → 2S 12-03 01:35

== ENCOUNTER 2023-10-06 10:04 | Inpatient (IN) ==
[2023-10-06 11:07] LABS: Basophils # (auto) 0.04 K/uL (0.00-0.20); Basophils % (auto) 0.4 %; Eosinophils # (auto) 0.07 K/uL (0.00-0.50); Eosinophils % (auto) 0.7 %; Hematocrit (blood only) 38.1 % (42.0-52.0); Hemoglobin 12.8 g/dl (14.0-18.0); Immature Granulocytes # (auto) 0.04 K/uL (0.01-0.20); Immature Granulocytes % (auto) 0.4 %; Lymphocytes # (auto) 0.64 K/uL (1.20-3.40); Mean Corpuscular Hemoglobin 30.6 pg (25.0-34.0); Mean Corpuscular Hgb Conc 33.6 g/dL (32.0-36.0); Mean Corpuscular Volume 91.1 fL (80.0-100.0); Mean Platelet Volume 10.1 fL (9.4-12.4); Monocytes # (auto) 0.74 K/uL (0.11-0.59); Monocytes % (auto) 6.9 %; Neutrophils # (auto) 9.16 K/uL (1.40-6.50); Neutrophils % (auto) 85.6 %; Platelet Count 183 K/uL (130-400); RDW Coefficient of Variation 13.1 % (11.5-14.5); RDW Standard Deviation 43.5 fL (36.4-46.3); Red Blood Count 4.18 M/uL (4.70-6.10); White Blood Count 10.69 K/ul (4.8-10.8)
[2023-10-06 11:11] LABS: INR 1.9 (0.9-1.1); Partial Thromboplastin Ratio 1.5; Partial Thromboplastin Time 43 Seconds (21-31); Prothrombin Time 20.2 Seconds (9.0-12.0)
[2023-10-06 11:17] LABS: Albumin Level 3.9 gm/dl (3.4-5.0); Bilirubin,Total 1.5 mg/dl (0.2-1.0); Calcium 9.1 mg/dl (8.6-10.3); Magnesium 1.8 mg/dl (1.7-2.4); Potassium 4.2 mmol/L (3.5-5.1)
--- NOTE | 2023-10-06 11:17 | XRay Report ---
XR toe(s) RT min 2V HISTORY: 82 years-old Male infection acute pain and swelling of the right great toe COMPARISON: None TECHNIQUE: 3 views of the right great toe FINDINGS: Chronic-appearing 1.3 cm corticated ossification along the medial margin of the first tarsal metatars al joint. Arterial calcifications. Diffuse soft tissue swelling. Multifocal mild to moderate osteoart hritis. No acute fracture, dislocation, or opaque foreign body. There is suspected subtle osseous ero alvino involving the medial and plantar aspects of the first distal phalanx. IMPRESSION: Soft tissue swelling with small focus of suspected acute osteomyelitis of the first dista l phalanx. ACT 112: Negative or not required by law. The above report was generated using voice recognition software. It may contain grammatical, syntax o r spelling errors. Electronically signed by: Guille Morin M.D. 10/06/2023 11:16 AM
[2023-10-06 11:29] LABS: Albumin Globulin Ratio 1.2 (0.9-2); BUN Creatinine Ratio 15.6 (10-20); Creatinine Clr Calc Pharmacy 40.6 ml/min; Est GFR (African American) 56.3 ml/min; Est GFR (Non-African American) 48.5 ml/min; Globulin 3.3 gm/dl (2.5-4.0); Total Protein 7.2 gm/dl (6.0-8.3); Troponin I High Sensitivity 13.9 pg/ml (0-20)
--- NOTE | 2023-10-06 12:29 | Emergency Department Note ---
Impression & Plan Osteomyelitis of toe of right foot, Infection of great toe, Diabetic infection of right foot, Diabetic foot ulcer, Hyperglycemia due to type 1 diabetes mellitus ED Provider Note NAME: RADHA NINA AGE: 82 SEX: M : 1940 ARRIVES VIA: Walk-In INFORMANT: Patient ED PROVIDER(S): Doe Pemberton MD CHIEF COMPLAINT: Right great toe infection PLAN: Disposition: Admit MEDICAL DECISION MAKING: The patient is a pleasant 82-year-old gentleman with past medical history of Type 1 diabetes on insulin, diabetic nephropathy, CAD, history of PCI and CABG, paroxysmal atrial fibrillation on warfarin, hypothyroidism who presents to the emergency department via walk-in, accompanied by his for evaluation of right toe infection with redness, pain that is tracking up his foot and has been ongoing for at least several days per the patient's report. He correlates the infection to having his toenails cut by his chicken stuffer a month ago. However he did not notice any redness or pain until several days ago. He denies any fevers, chills, cough, congestion, GI or symptoms. Of note, the patient did arrive to emergency department during time of high volume, acuity and prolonged emergency department waiting times. Critical pathways initiated from triage. On my evaluation the patient no acute distress, afebrile stable vital signs. Patient's right great toe demonstrates erythema, warmth, tenderness with scant and ecchymosis of the distal aspect of the phalanx and superficial ulceration on the plantar aspect of the distal phalanx. There is no crepitus. There is moderate edema of the toe foot and ankle. EKG without overt acute ischemia. WBC and platelets within normal limits. H/H similar to prior. INR 1.9, subtherapeutic, chemistry without metabolic acidosis though glucose is 317 in the setting of the patient having waffles for breakfast before coming to emergency department. He did take his insulin. Lactate is 1.1. LFTs unremarkable. High-sensitivity troponin is 13.9 within normal limits. Procalcitonin is not elevated. ESR is mildly elevated 48. CRP 9.5. Plain film of the right great toe demonstrates soft tissue swelling and mild to moderate arthritis with subtle suspected osseous erosion involving the medial and plantar aspects of the distal first phalanx. Given the progression of the patient's toe infection with question of osteomyelitis patient and agree to plan for admission for further management. Blood cultures were obtained and treatment was initiated with IV cefepime and daptomycin. Case was d/w Dr. Walker [facility] [place] who will evaluate the patient for admission. Further management per admitting team. Triage Nursing notes reviewed and agree them. Prior/external medical records reviewed Vital Signs: reviewed Differential diagnosis: Cellulitis, abscess, MRSA infection, DVT, necrotizing fasciitis, dermatitis, drug eruption, allergic reaction, as well as other pathologies. ER treatment provided: See below. Diagnostics interpreted by me: ECG: Sinus rhythm with first-degree AV block, 91 bpm, ST and T wave abnormality, no overt ST elevation or depression, QTc 443, QRS 88. Cardiac Monitoring: An order for continuous cardiac monitoring was placed and demonstrated Sinus rhythm with first-degree AV block, 91 bpm. Laboratory studies: See below Imaging studies: See below Consultation(s): Case was d/w Dr. Walker [facility] [place] who will evaluate the patient for admission. HPI: The patient is a pleasant 82-year-old gentleman with past medical history of Type 1 diabetes on insulin, diabetic nephropathy, CAD, history of PCI and CABG, paroxysmal atrial fibrillation on warfarin, hypothyroidism who presents to the emergency department via walk-in, accompanied by his for evaluation of right toe infection with redness, pain that is tracking up his foot and has been ongoing for at least several days per the patient's report. He correlates the infection to having his toenails cut by his chicken stuffer a month ago. However he did not notice any redness or pain until several days ago. He denies any fevers, chills, cough, congestion, GI or symptoms. ROS: See above HPI for pertinent positives & negatives. A total of 10 systems reviewed and were otherwise negative. VITALS:See Below PHYSICAL EXAMINATION: GENERAL: Awake, alert, well-appearing, in no distress HENT: Normocephalic, atraumatic. Oropharynx unremarkable. EYES: Normal conjunctiva. Sclera non-icteric. NECK: Supple. No nuchal rigidity. FROM. No JVD. RESPIRATORY: Clear to auscultation. CARDIAC: Regular rate, normal rhythm. Extremities warm and well perfused. Pulses equal. ABDOMEN: Soft, non-distended. No tenderness to palpation. No rebound or guarding. No masses. MUSCULOSKELETAL: Chest examination reveals no tenderness. The back is symmetrical on inspection without obvious abnormality. There is no CVA tenderness to palpation. EXTREMITIES: Calves are equal size bilaterally and non-tender. Right great toe demonstrates erythema, warmth, tenderness with scant and ecchymosis of the distal aspect of the phalanx and superficial ulceration on the plantar aspect of the distal phalanx. There is no crepitus. There is moderate edema of the toe foot and ankle. NEURO: Normal sensorium. No sensory or motor deficits noted. SKIN: No rash or jaundice noted. 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) Insomnia Hoarseness Factor V Leiden mutation Dysphagia, oropharyngeal phase Complex sleep apnea syndrome CAD (coronary artery disease) Ascending aorta dilation Anticoagulant long-term use Anti-cardiolipin antibody positive Surgical History S/P CABG x 3 History of surgical removal of ganglion cyst History of hydrocelectomy History of hand surgery S/P coronary artery stent placement H/O hernia repair Hx of appendectomy Family History Mother , in her 60s of heart disease COPD (chronic obstructive pulmonary disease) Coronary heart disease Heart disease CHF Diabetes Hypertension Father , age 62 of melanoma Melanoma Heart disease Hypertension Brother Coronary heart disease Hypertension Myocardial infarction Son Diabetes Denies family history of Ovarian cancer Prostate cancer Breast cancer Lung cancer Colorectal cancer Stroke Social History Smoking Status: Never smoker Second Hand Exposure: Yes (As a child, parents smoked); Do You Dip or Chew Tobacco: No; Tobacco Cessation Education Requested by Patient: No Hx Alcohol Use: No Hx Substance Use: No Preferred Language: Indonesian Communication Ability: Effective Communication Ability Comment: expressive and receptive aphasia Visual Impairment: No Limitations Hearing Ability: Normal [employer] Required: No Beliefs That Will Affect Care: None marital status: Current Living Situation: Spouse and Family current occupational status: retired 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 How many Children do You have: 2 Other Information That Helps Us Care for You: No Feels Safe at Home: Yes Safety Concerns: Feels Safe At This Time Childhood Exposure to Second-Hand Smoke: Yes caffeine: Yes Dental Care, Regularly: Yes Physical Activity Frequency: Does not Exercise Seatbelt Use: always Sunscreen Use: Yes Assistive Devices: Cane and Glasses Allergies Allergies Allergy/AdvReac Type Severity Reaction Status Date / Time clindamycin Allergy Intermediate Rash Verified 10/06/23 15:35 Sulfa (Sulfonamide Allergy Intermediate HIVES Verified 10/06/23 15:35 Antibiotics) lisinopril Allergy Unknown Unknown Verified 10/06/23 15:35 Penicillins Allergy Unknown Unknown Verified 10/06/23 15:35 Home Meds Home Medications Medication Instructions Recorded Confirmed multivitamin 1 tab PO QDL ##0 11/28/10/06/23 docusate sodium 100 mg capsule 300 mg PO HS #0 caps 01/19/17 10/06/23 magnesium 250 mg tablet 250 mg PO QDL ##0 01/19/17 10/06/23 fluticasone propionate 50 2 sprays intranasal DAILY PRN 01/10/19 10/06/23 mcg/actuation nasal Nasal Congestion spray,suspension lutein 20 mg capsule 20 mg PO QDL 01/10/19 10/06/23 thiamine HCl (vitamin B1) 100 mg 100 mg PO QDL 01/10/19 10/06/23 tablet aspirin 81 mg tablet,delayed 81 mg PO QAM 11/10/19 10/06/23 release cholecalciferol (vitamin D3) 50 50 mcg PO DAILY 07/31/20 10/06/23 mcg (2,000 unit) capsule polyethylene glycol 3350 17 17 g PO DAILY 12/01/21 10/06/23 gram/dose oral powder (Miralax) folic acid 1 mg tablet 1 mg PO DAILY 12/02/22 10/06/23 insulin glargine U-300 conc 300 25 unit subcut DAILY 01/15/23 10/06/23 unit/mL (1.5 mL) subcutaneous pen (Toumichaelo SoloStar U-300 Insulin) doxazosin 2 mg tablet 2 mg PO DAILY 09/08/23 10/06/23 Previous Rx's Medication Instructions Recorded acetone (urine) test (Ketone Urine #50 ea 08/05/21 Test strips) FreeStyle Anna 2 Sensor (flash #2 ea 11/27/21 glucose sensor) atorvastatin 40 mg tablet 40 mg PO HS #90 tabs 05/18/22 levothyroxine 25 mcg tablet 25 mcg PO QAM #90 tabs 05/18/22 azelastine 137 mcg (0.1 %) nasal 1 spray intranasal BID #90 mL 08/20/22 spray aerosol torsemide 20 mg tablet 20 mg PO QAM #90 tabs 02/04/23 finasteride 5 mg tablet 5 mg PO DAILY #90 tabs 03/04/23 warfarin 5 mg tablet See Rx Instructions PO .COMPLEX 04/02/23 #90 tabs metoprolol tartrate 25 mg tablet 25 mg PO BID #180 tabs 06/21/23 nitroglycerin 0.4 mg sublingual 0.4 mg sublingual UD PRN Chest 06/21/23 tablet (Nitrostat) Pain #100 tabs glucagon HCl 1 mg solution for 1 mg subcut Q20M PRN hypoglycemia 06/28/23 injection (Glucagon (HCl) #1 ea Emergency Kit) isosorbide mononitrate 30 mg 30 mg PO DAILY #90 tabs 07/16/23 tablet,extended release 24 hr pen needle, diabetic 31 gauge x #200 ea 09/08/2306/10" (Comfort EZ Pen Gaffney) insulin lispro 100 unit/mL See Rx Instructions subcut TID #95 09/28/23 subcutaneous pen (Humalog KwikPen mL (U-100) Insulin) Results & Data (ED) Vital Signs Vital Signs - 24 hr 10/06/23 10:06 10/06/23 11:50 10/06/23 11:51 Temperature 36.7 C Temperature Source Temporal Artery Scan Pulse Rate 107 H 77 Pulse Rate [Apical] 82 Respiratory Rate 18 19 Respiratory Effort / Characteristics Non-Labored Spontaneous Non-Labored Spontaneous Respiratory Depth Normal Normal Blood Pressure 122/50 L Blood Pressure [Right Arm] 139/87 Blood Pressure Mean 74 Blood Pressure Mean [Right Arm] 104 Pulse Oximetry 97 97 Oxygen Delivery Method Room Air Room Air Sepsis Recent Fever Within 48 Hours No Sepsis New/Unexplained Change in Mental Status No Sepsis Action Taken by Nursing No Action Required 10/06/23 11:51 10/06/23 13:00 Temperature Temperature Source Pulse Rate Pulse Rate [Apical] 83 Respiratory Rate 15 Respiratory Effort / Characteristics Non-Labored Spontaneous Respiratory Depth Normal Blood Pressure Blood Pressure [Right Arm] 153/106 H Blood Pressure Mean Blood Pressure Mean [Right Arm] 121 Pulse Oximetry 97 98 Oxygen Delivery Method Room Air Room Air Sepsis Recent Fever Within 48 Hours Sepsis New/Unexplained Change in Mental Status Sepsis Action Taken by Nursing Laboratory Data Attestation: I reviewed the patient's lab results. 10/06/23 09:30 10/06/23 09:30 Lab Results 10/06/23 10/06/23 10/06/23 Range/Units 09:30 11:51 11:55 WBC 10.69 (4.8-10.8) K/ul RBC 4.18 L (4.70-6.10) M/uL Hgb 12.8 L (14.0-18.0) g/dl Hct 38.1 L (42.0-52.0) % MCV 91.1 (80.0-100.0) fL MCH 30.6 (25.0-34.0) pg MCHC 33.6 (32.0-36.0) g/dL RDW Std Deviation 43.5 (36.4-46.3) fL RDW Coeff of Mary 13.1 (11.5-14.5) % Plt Count 183 (130-400) K/uL MPV 10.1 (9.4-12.4) fL Immature Gran % (Auto) 0.4 % Neut % (Auto) 85.6 % Lymph % (Auto) 6.0 % [place] % (Auto) 6.9 % Eos % (Auto) 0.7 % Baso % (Auto) 0.4 % Neut # (Auto) 9.16 H (1.40-6.50) K/uL Lymph # (Auto) 0.64 L (1.20-3.40) K/uL [place] # (Auto) 0.74 H (0.11-0.59) K/uL Eos # (Auto) 0.07 (0.00-0.50) K/uL Baso # (Auto) 0.04 (0.00-0.20) K/uL Immature Gran # (Auto) 0.04 (0.01-0.20) K/uL ESR 48 H (0-20) mm/hr PT 20.2 H (9.0-12.0) Seconds INR 1.9 H (0.9-1.1) APTT 43 H (21-31) Seconds PTT Ratio 1.5 Sodium 133 L (136-145) mmol/L Potassium 4.2 (3.5-5.1) mmol/L Chloride 99 (98-107) mmol/L Carbon Dioxide 26 (21-32) mmol/L Anion Gap 8 (3-11) BUN 21 (6-23) mg/dl Creatinine 1.35 (0.6-1.4) mg/dl Est Cr Clr Drug Dosing 40.6 ml/min Est GFR ( Amer) 56.3 ml/min Est GFR (Non-Af Amer) 48.5 ml/min BUN/Creatinine Ratio 15.6 (10-20) Glucose 317 H* (70-99(Fasting)) mg/dl Lactate 1.1 (0.4-2.0) mmol/L Calcium 9.1 (8.6-10.3) mg/dl Magnesium 1.8 (1.7-2.4) mg/dl Total Bilirubin 1.5 H (0.2-1.0) mg/dl AST 18 (13-39) U/L ALT 21 (7-52) U/L Alkaline Phosphatase 91 (34-104) U/L Troponin I High Sens 13.9 (0-20) pg/ml C-Reactive Protein 9.56 H (0-0.5) mg/dl Total Protein 7.2 (6.0-8.3) gm/dl Albumin 3.9 (3.4-5.0) gm/dl Globulin 3.3 (2.5-4.0) gm/dl Albumin/Globulin Ratio 1.2 (0.9-2) Procalcitonin 0.07 (0-0.5) ng/ml Administered Medications Azelastine HCl (Azelastine Hcl 0.1% Nasal 200 Sprays/27,400 Mcg Btl) 1 sprays CASSANDRA BID PENNY Stop: 11/05/23 20:59 Last Admin: 10/06/23 21:02 Dose: 1 sprays Documented By: TOD Docusate Sodium (Docusate Sodium 100 Mg Cap) 300 mg PO HS [facility] Stop: 11/05/23 20:59 Last Admin: 10/06/23 21:03 Dose: 300 mg Documented By: TOD Insulin Aspart (Insulin Aspart Per Unit Charge) 0 units SC ACHS [facility]; Protocol Stop: 11/05/23 17:44 Last Admin: 10/06/23 21:03 Dose: Not Given Documented By: Admin: 10/06/23 18:02 Dose: 12 units Documented By: TRISTEN Co-signed By: OVIDIO Insulin Glargine (Lantus Per Unit Charge) 15 units SQ HS [facility]; Protocol Stop: 11/05/23 20:59 Last Admin: 10/06/23 21:15 Dose: 15 units Documented By: TOD Co-signed By: ARTURO Metoprolol Tartrate (Metoprolol Tartrate 25 Mg Tab) 25 mg PO BID [facility] Stop: 11/05/23 20:59 Last Admin: 10/06/23 21:04 Dose: 25 mg Documented By: TOD Discontinued Medications Aspirin (Aspirin 81 Mg Ectab) 81 mg PO NOW STA Stop: 10/06/23 14:37 Last Admin: 10/06/23 15:12 Dose: 81 mg Documented By: YOUSIF Doxazosin Mesylate (Doxazosin Mesylate Tab 2 Mg Tab) 2 mg PO ONE STA Stop: 10/06/23 14:37 Last Admin: 10/06/23 15:12 Dose: 2 mg Documented By: YOUSIF Sodium Chloride (Nss) 500 mls @ 999 mls/hr IV .Q31M ONE Stop: 10/06/23 12:58 Last Infusion: 10/06/23 13:10 Dose: Infused Documented By: Admin: 10/06/23 12:38 Dose: 999 mls/hr Documented By: ROBBI Cefepime HCl (Maxipime) 2,000 mg in 20 mls @ 5 mls/min IV NOW STA; Protocol Stop: 10/06/23 12:31 Last Admin: 10/06/23 12:38 Dose: 5 mls/min Documented By: MES Daptomycin 300 mg/ Syringe 6 mls @ 3 mls/min IV NOW STA; Protocol Stop: 10/06/23 12:29 Last Admin: 10/06/23 13:04 Dose: 3 mls/min Documented By: MES Isosorbide Mononitrate (Isosorbide [place] Extended Rel 30 Mg Tabcr) 30 mg PO NOW STA Stop: 10/06/23 14:37 Last Admin: 10/06/23 15:12 Dose: 30 mg Documented By: YOUSIF Metoprolol Tartrate (Metoprolol Tartrate 25 Mg Tab) 25 mg PO ONE STA Stop: 10/06/23 14:37 Last Admin: 10/06/23 15:12 Dose: 25 mg Documented By: YOUSIF Torsemide (Torsemide 20 Mg Tab) 20 mg PO ONE STA Stop: 10/06/23 14:37 Last Admin: 10/06/23 15:14 Dose: Not Given Documented By: YOUSIF Imaging Data Radiologist's Impression: Duplex Scan Lower Extremity Artery 10/06/23 12:51 US arterial duplex LE RT HISTORY: 82 years-old Male 1st toe diabetic OM ?PAD acute pain in the right lower leg with possible osteomyelitis COMPARISON: Right toe radiographs of same day TECHNIQUE: Multiple real-time sonographic images of the right lower extremity arterial structures were obtained assessing grayscale appearance, color and spectral flow FINDINGS: Diffuse atherosclerosis. Triphasic waveforms are noted from the common femoral to the anterior tibial arteries with monophasic waveforms in the posterior tibial, peroneal and dorsalis pedis arteries. Diminished peak systolic velocities in the dorsalis pedis artery, 13 cm/s. Nonspecific areas of increased echogenicity noted within the superficial femoral vein. No acute occlusive DVT identified. Likely benign inguinal chain lymph nodes. No brachial indices were unable to be obtained secondary to the patient's wound. IMPRESSION: 1. No arterial occlusion is identified. 2. Atherosclerosis with monophasic waveforms within the lower leg. ACT 112: Negative or not required by law. The above report was generated using voice recognition software. It may contain grammatical, syntax or spelling errors. Electronically signed by: Guille Morin M.D. 10/06/2023 3:32 PM Discharge Plan Visit Data Chief Complaint: Toe Injury/Pain Stated Complaint: RIGHT BIG TOE INFECTION ED Provider: Doe Pemberton Discharge Problem: Osteomyelitis of toe of right foot, Infection of great toe, Diabetic infection of right foot, Diabetic foot ulcer, Hyperglycemia due to type 1 diabetes mellitus Patient Disposition: Admitted As Inpatient Discharge Instructions Interventions: ED Discharge Assessment Last Done: 10/06/23 16:38 Discharge Problem: Diabetic foot ulcer Qualifiers: Diabetic foot ulcer location: midfoot Diabetes mellitus type: type 1 L aterality: right Non-pressure ulcer stage: unspecified non-pressure ulcer stage Qualified Code(s): E10.621 - Type 1 diabetes mellitus with foot ulcer
[2023-10-06] MEDS: SODIUM CHLORIDE 0.9% 500 ML IV ONE (12:38)
[2023-10-06] MEDS: CEFEPIME 2,000 MG/20 ML VIAL IV STA (12:38)
[2023-10-06] MEDS: DAPTOmycin 300 MG in SYRINGE 0 ML IV STA (13:04)
--- NOTE | 2023-10-06 13:06 | History & Physical Report ---
Date of Service October 06, 2023 Assessment & Plan (1) Osteomyelitis of toe of right foot: Plan: With associated cellulitis Cefepime + daptomycin Follow up blood cultures Consult podiatry Possible need for surgical treatment therefore will hold warfarin, NPO after midnight and consult cardiology for clearance (2) Diabetic foot ulcer: Plan: Arterial US, poorly palpable peripheral pulses (3) Murmur: Plan: TTE ordered (4) Paroxysmal atrial fibrillation: Plan: s/p left atrial appendage clip and partial Maze procedure during CABG in December 2022 Currently in NSR (5) S/P CABG x 3: Plan: December 2022 Continue aspirin, ISMN, metoprolol Atorvastatin on hold with daptomycin (6) Complex sleep apnea syndrome: Plan: BiPAP / HS, may use own BiPAP (7) Diabetes type 1, uncontrolled: Plan: Hemoglobin A1C 7.8 in September, no need to repeat Reduce Lantus dosing to 25 -> 15 units HS Novolog: --Goal BSG Range: Low 110 mg/dL, High 140 mg/dL --Correction Factor: 7 mg/dL/unit --Carbohydrate ratio = 25 g/unit --BSGs ACHS if eating, q6h if npo Consult pharmacy for ongoing management in setting of T1DM (8) Hypothyroidism: Plan: TSH 3.474 in 01/2023 Continue levothyroxine (9) Hypertension: Plan: Continue metoprolol, ISMN and torsemide (hold torsemide pre-operatively) (10) Anticoagulant long-term use: (11) Cellulitis: Plan VTE prophylaxis - INR 1.9 on admission Diet - T2DM, NPO after midnight Disposition - admit to med/surg Admission and Anticipated Discharge Date Admission Date: October 05, 2022 History of Present Illness Chief Complaint: Right 1st toe infection Primary Care Provider: DO Sheng Yeh is an 82 year old male with T1DM who presents to the ER with right 1st toe infection. He reports the toe was cut by his cutter machine tender too much 1 month ago. He has no prior foot infections or known peripheral artery disease but he does have peripheral neuropathy. He notes 3-4 days of worsening pain and redness. Not previously seen by his PCP or put on antibiotics for this infection. He has known hypercoagulable state with history of DVT and PEs (anticardiolipin antibody positive) for which he is on chronic warfarin but did not take his dose today. He missed all his morning medications. He has a significant history of CABG in December 2022. No current chest pain or shortness of breath on exertion. Allergies Allergy/AdvReac Type Severity Reaction Status Date / Time clindamycin Allergy Intermediate Rash Verified 10/06/23 15:35 Sulfa (Sulfonamide Allergy Intermediate HIVES Verified 10/06/23 15:35 Antibiotics) lisinopril Allergy Unknown Unknown Verified 10/06/23 15:35 Penicillins Allergy Unknown Unknown Verified 10/06/23 15:35 Home Medications Medication Instructions Recorded Confirmed Type multivitamin 1 tab PO QDL ##0 11/28/08 10/06/23 History docusate sodium 100 mg capsule 300 mg PO HS #0 caps 01/19/17 10/06/23 History magnesium 250 mg tablet 250 mg PO QDL ##0 01/19/17 10/06/23 History fluticasone propionate 50 2 sprays intranasal DAILY PRN 01/10/19 10/06/23 History mcg/actuation nasal Nasal Congestion spray,suspension lutein 20 mg capsule 20 mg PO QDL 01/10/19 10/06/23 History thiamine HCl (vitamin B1) 100 mg 100 mg PO QDL 01/10/19 10/06/23 History tablet aspirin 81 mg tablet,delayed 81 mg PO QAM 11/10/19 10/06/23 History release cholecalciferol (vitamin D3) 50 50 mcg PO DAILY 07/31/20 10/06/23 History mcg (2,000 unit) capsule acetone (urine) test (Ketone Urine #50 ea 08/05/21 09/08/23 Rx Test strips) FreeStyle Anna 2 Sensor (flash #2 ea 11/27/21 09/08/23 Rx glucose sensor) polyethylene glycol 3350 17 17 g PO DAILY 12/01/21 10/06/23 History gram/dose oral powder (Miralax) atorvastatin 40 mg tablet 40 mg PO HS #90 tabs 05/18/22 10/06/23 Rx levothyroxine 25 mcg tablet 25 mcg PO QAM #90 tabs 05/18/22 10/06/23 Rx azelastine 137 mcg (0.1 %) nasal 1 spray intranasal BID #90 mL 08/20/22 10/06/23 Rx spray aerosol folic acid 1 mg tablet 1 mg PO DAILY 12/02/22 10/06/23 History insulin glargine U-300 conc 300 25 unit subcut DAILY 01/15/23 10/06/23 History unit/mL (1.5 mL) subcutaneous pen (Toujeo SoloStar U-300 Insulin) torsemide 20 mg tablet 20 mg PO QAM #90 tabs 02/04/23 10/06/23 Rx finasteride 5 mg tablet 5 mg PO DAILY #90 tabs 03/04/23 10/06/23 Rx warfarin 5 mg tablet See Rx Instructions PO .COMPLEX 04/02/23 10/06/23 Rx #90 tabs metoprolol tartrate 25 mg tablet 25 mg PO BID #180 tabs 06/21/23 10/06/23 Rx nitroglycerin 0.4 mg sublingual 0.4 mg sublingual UD PRN Chest 06/21/23 10/06/23 Rx tablet (Nitrostat) Pain #100 tabs glucagon HCl 1 mg solution for 1 mg subcut Q20M PRN hypoglycemia 06/28/23 10/06/23 Rx injection (Glucagon (HCl) #1 ea Emergency Kit) isosorbide mononitrate 30 mg 30 mg PO DAILY #90 tabs 07/16/23 10/06/23 Rx tablet,extended release 24 hr doxazosin 2 mg tablet 2 mg PO DAILY 09/08/23 10/06/23 History pen needle, diabetic 31 gauge x #200 ea 09/08/23 09/08/23 Rx 1/4" (Comfort EZ Pen [place]) insulin lispro 100 unit/mL See Rx Instructions subcut TID #95 09/28/23 10/06/23 Rx subcutaneous pen (Humalog KwikPen mL (U-100) Insulin) Past Med/Surg History Medical History Aortic stenosis Urinary retention Paroxysmal atrial fibrillation History of CVA (cerebrovascular accident) Type 1 diabetes mellitus with complications Alcohol abuse Vitamin D deficiency Proteinuria Primary hypercoagulable state Organic hypersomnia Leukopenia Left inguinal hernia Kidney disease, chronic, stage II (mild, 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) Insomnia Hoarseness Factor V Leiden mutation Dysphagia, oropharyngeal phase Complex sleep apnea syndrome CAD (coronary artery disease) Ascending aorta dilation Anticoagulant long-term use Anti-cardiolipin antibody positive Surgical History S/P CABG x 3 History of surgical removal of ganglion cyst History of hydrocelectomy History of hand surgery S/P coronary artery stent placement H/O hernia repair Hx of appendectomy Family History Mother , in her 60s of heart disease COPD (chronic obstructive pulmonary disease) Coronary heart disease Heart disease CHF Diabetes Hypertension Father , age 62 of melanoma Melanoma Heart disease Hypertension Brother Coronary heart disease Hypertension Myocardial infarction Son Diabetes Denies family history of Ovarian cancer Prostate cancer Breast cancer Lung cancer Colorectal cancer Stroke Social History Smoking Status: Never smoker Second Hand Exposure: Yes (As a child, parents smoked); Do You Dip or Chew Tobacco: No; Tobacco Cessation Education Requested by Patient: No Hx Alcohol Use: No Hx Substance Use: No Preferred Language: Japanese Communication Ability: Effective Communication Ability Comment: expressive and receptive aphasia Visual Impairment: No Limitations Hearing Ability: Normal Ground Defence Officer Required: No Beliefs That Will Affect Care: None marital status: Current Living Situation: Spouse and Family current occupational status: retired 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 How many Children do You have: 2 Other Information That Helps Us Care for You: No Feels Safe at Home: Yes Safety Concerns: Feels Safe At This Time Childhood Exposure to Second-Hand Smoke: Yes caffeine: Yes Dental Care, Regularly: Yes Physical Activity Frequency: Does not Exercise Seatbelt Use: always Sunscreen Use: Yes Assistive Devices: Cane and Glasses Review of Systems Review of Systems: All systems reviewed & are unremarkable except as noted in HPI & below Physical Exam Constitutional: WD/WN, vitals as above Eyes: + anicteric sclerae; normal pupil size Respiratory: normal respiratory effort, lungs clear to auscultation Cardiovascular: Rate/Rhythm: regular rate and regular rhythm Heart Sounds: + murmur (systolic, loudest at apex) Vessels: posterior tibial pulses present and dorsalis pedis pulses present (poorly palpable on right side) Gastrointestinal (Abdomen): normal bowel sounds, soft, nontender, no hepatosplenomegaly Skin: Unstageable ulcer on tip distal right 1st toe Erythema, swelling and warmth surrounding this and tracking to ankle Neurologic: moves all extremities and awake; not confused Psychiatric: A+Ox3, euthymic affect Results & Data Results & Data Vital Signs (Past 12 Hours) Vital Signs Temp Pulse Pulse Resp BP BP Pulse Ox 10/06/23 11:51 97 10/06/23 11:51 82 19 139/87 97 10/06/23 11:50 77 10/06/23 10:06 36.7 C 107 H 18 122/50 L 97 O2 Del Method 10/06/23 11:51 Room Air 10/06/23 11:51 Room Air 10/06/23 11:50 10/06/23 10:06 Room Air Laboratory Results Abnormal lab results 10/06/23 10/06/23 Range/Units 09:30 11:51 RBC 4.18 L (4.70-6.10) M/uL Hgb 12.8 L (14.0-18.0) g/dl Hct 38.1 L (42.0-52.0) % Neut # (Auto) 9.16 H (1.40-6.50) K/uL Lymph # (Auto) 0.64 L (1.20-3.40) K/uL [place] # (Auto) 0.74 H (0.11-0.59) K/uL ESR 48 H (0-20) mm/hr PT 20.2 H (9.0-12.0) Seconds INR 1.9 H (0.9-1.1) APTT 43 H (21-31) Seconds Sodium 133 L (136-145) mmol/L Glucose 317 H* (70-99(Fasting)) mg/dl Total Bilirubin 1.5 H (0.2-1.0) mg/dl Diagnostic Findings XR toe(s) RT min 2V HISTORY: 82 years-old Male infection acute pain and swelling of the right great toe COMPARISON: None TECHNIQUE: 3 views of the right great toe FINDINGS: Chronic-appearing 1.3 cm corticated ossification along the medial margin of the first tarsal metatarsal joint. Arterial calcifications. Diffuse soft tissue swelling. Multifocal mild to moderate osteoarthritis. No acute fracture, dislocation, or opaque foreign body. There is suspected subtle osseous erosion involving the medial and plantar aspects of the first distal phalanx. IMPRESSION: Soft tissue swelling with small focus of suspected acute osteomyelitis of the first distal phalanx. Medications Administered ER Medications Given: Daptomycin 300mg IV Cefepime 2000mg IV Normal saline 500ml bolus ECG Rate (beats per minute): 91 Rhythm: normal sinus Findings: + 1st degree AV block and + nonspecific-ST abn (Lateral) Comparison ECG Date: from (December 04, 2022) Change: the following changes noted (St more depressed and TWI/flattening in lateral leads) Code Status & VTE Plan Code Status Full VTE Prophylaxis Plan VTE Prophylaxis will be ordered: Yes PG Care Time/CCT Total # of Minutes Spent Total Time Spent with Patient: Total time spent is greater than 50% in coordination of care (as documented) at patient's floor/unit and/or counseling patient: Coding Level of Care Code 97540 INT INP/OBS CARE 3MIN Diagnoses Osteomyelitis of toe of right foot M86.9 Diabetic foot ulcer E11.621; L97.509 Murmur R01.1 Paroxysmal atrial fibrillation I48.0 S/P CABG x 3 Z95.1 Complex sleep apnea syndrome G47.31 Diabetes type 1, uncontrolled E10.65 Hypothyroidism E03.9 Hypertension I10 Anticoagulant long-term use Z79.01 Cellulitis L03.90
[2023-10-06] MEDS: ISOSORBIDE MONO EXTENDED REL 30 MG TABCR PO STA (15:12)
[2023-10-06] MEDS: DOXAZosin MESYLATE TAB 2 MG TAB PO STA (15:12)
[2023-10-06] MEDS: METOPROLOL TARTRATE 25 MG TAB PO STA (15:12)
[2023-10-06] MEDS: ASPIRIN 81 MG ECTAB PO STA (15:12)
[2023-10-06] MEDS: TORSEMIDE 20 MG TAB PO STA (15:14)
--- NOTE | 2023-10-06 15:33 | Ultrasound Report ---
US arterial duplex LE RT HISTORY: 82 years-old Male 1st toe diabetic OM ?PAD acute pain in the right lower leg with possible osteomyelitis COMPARISON: Right toe radiographs of same day TECHNIQUE: Multiple real-time sonographic images of the right lower extremity arterial structures wer e obtained assessing grayscale appearance, color and spectral flow FINDINGS: Diffuse atherosclerosis. Triphasic waveforms are noted from the common femoral to the anterior tibial arteries with monophasic waveforms in the posterior tibial, peroneal and dorsalis pedis arteries. Di minished peak systolic velocities in the dorsalis pedis artery, 13 cm/s. Nonspecific areas of increas ed echogenicity noted within the superficial femoral vein. No acute occlusive DVT identified. Likely benign inguinal chain lymph nodes. No brachial indices were unable to be obtained secondary to the pa tient's wound. IMPRESSION: 1. No arterial occlusion is identified. 2. Atherosclerosis with monophasic waveforms within the lower leg. ACT 112: Negative or not required by law. The above report was generated using voice recognition software. It may contain grammatical, syntax o r spelling errors. Electronically signed by: Guille Morin M.D. 10/06/2023 3:32 PM
[2023-10-06] MEDS ORDERED: GLUCAGON FOR INJ 1 MG VIAL SQ PRN (16:53)
[2023-10-06] MEDS ORDERED: DEXTROSE 50% 50 ML SYRINGE IV PRN (16:53)
[2023-10-06] MEDS ORDERED: PHARMACY GLYCEMIC MGMT CONSULT PRN (16:53)
[2023-10-06] MEDS ORDERED: GLUCOSE 10 TAB/TUBE PO PRN (16:53)
[2023-10-06] MEDS ORDERED: GLUCOSE 40% GEL 15 GM TUBE PO PRN (16:53)
--- NOTE | 2023-10-06 17:31 | Podiatry Consultation ---
Date of Consultation October 06, 2023 Assessment & Plan (1) Diabetic infection of right foot: (2) Infection of great toe: (3) Osteomyelitis of toe of right foot: (4) Diabetic foot ulcer: Diabetes mellitus type: type 1 Diabetic foot ulcer location: midfoot Laterality: right Non-pressure ulcer stage: unspecified non-pressure ulcer stage Qualified Code(s): E10.621 - Type 1 diabetes mellitus with foot ulcer; L97.419 - Non-pressure chronic ulcer of right heel and midfoot with unspecified severity Plan - Pt seen at bedside. - Plan on surgical I&D tomorrow. Pt would like to attempt wound care/IV antibiotics. - Will benefit from ID and vascular surgery consults. Recs for diffuse vascular disease, half-way IV abx appreciated - NPO after midnight. - Will continue to follow. History of Present Illness Reason for Consultation: Right hallux osteomyelitis Attending Physician: Sylvain Walker MD History of Present Illness Pt seen at bedside. Longstanding history of callus to right foot. Recently trimmed down by air quality consultant outpatient and developed worsening infection since that time. Now has increasing pain, despite neuropathy. ED identified likely bone infection and consulted us after plain film imaging. Denies any history of infection. Denies any new systemic signs of infection. Allergies Allergy/AdvReac Type Severity Reaction Status Date / Time clindamycin Allergy Intermediate Rash Verified 10/07/23 12:57 lisinopril Allergy Intermediate falling Verified 10/07/23 12:57 down ? Penicillins Allergy Intermediate Hives Verified 10/07/23 12:57 Sulfa (Sulfonamide Allergy Intermediate HIVES Verified 10/07/23 12:57 Antibiotics) Home Medications Medication Instructions Recorded Confirmed Type multivitamin 1 tab PO QDL ##0 11/28/08 10/06/23 History docusate sodium 100 mg capsule 300 mg PO HS #0 caps 01/19/17 10/06/23 History magnesium 250 mg tablet 250 mg PO QDL ##0 01/19/17 10/06/23 History fluticasone propionate 50 2 sprays intranasal DAILY PRN 01/10/19 10/06/23 History mcg/actuation nasal Nasal Congestion spray,suspension lutein 20 mg capsule 20 mg PO QDL 01/10/19 10/06/23 History thiamine HCl (vitamin B1) 100 mg 100 mg PO QDL 01/10/19 10/06/23 History tablet aspirin 81 mg tablet,delayed 81 mg PO QAM 11/10/19 10/06/23 History release cholecalciferol (vitamin D3) 50 50 mcg PO DAILY 07/31/20 10/06/23 History mcg (2,000 unit) capsule acetone (urine) test (Ketone Urine #50 ea 08/05/21 09/08/23 Rx Test strips) FreeStyle Anna 2 Sensor (flash #2 ea 11/27/21 09/08/23 Rx glucose sensor) polyethylene glycol 3350 17 17 g PO DAILY 12/01/21 10/06/23 History gram/dose oral powder (Miralax) atorvastatin 40 mg tablet 40 mg PO HS #90 tabs 05/18/22 10/06/23 Rx levothyroxine 25 mcg tablet 25 mcg PO QAM #90 tabs 05/18/22 10/06/23 Rx azelastine 137 mcg (0.1 %) nasal 1 spray intranasal BID #90 mL 08/20/22 10/06/23 Rx spray aerosol folic acid 1 mg tablet 1 mg PO DAILY 12/02/22 10/06/23 History insulin glargine U-300 conc 300 25 unit subcut DAILY 01/15/23 10/06/23 History unit/mL (1.5 mL) subcutaneous pen (Ellie SolDennyar U-300 Insulin) torsemide 20 mg tablet 20 mg PO QAM #90 tabs 02/04/23 10/06/23 Rx finasteride 5 mg tablet 5 mg PO DAILY #90 tabs 03/04/23 10/06/23 Rx warfarin 5 mg tablet See Rx Instructions PO .COMPLEX 04/02/23 10/06/23 Rx #90 tabs metoprolol tartrate 25 mg tablet 25 mg PO BID #180 tabs 06/21/23 10/06/23 Rx nitroglycerin 0.4 mg sublingual 0.4 mg sublingual UD PRN Chest 06/21/23 10/06/23 Rx tablet (Nitrostat) Pain #100 tabs glucagon HCl 1 mg solution for 1 mg subcut Q20M PRN hypoglycemia 06/28/23 10/06/23 Rx injection (Glucagon (HCl) #1 ea Emergency Kit) isosorbide mononitrate 30 mg 30 mg PO DAILY #90 tabs 07/16/23 10/06/23 Rx tablet,extended release 24 hr doxazosin 2 mg tablet 2 mg PO DAILY 09/08/23 10/06/23 History pen needle, diabetic 31 gauge x #200 ea 09/08/23 09/08/23 Rx 1/4" (Comfort EZ Pen [place]) insulin lispro 100 unit/mL See Rx Instructions subcut TID #95 09/28/23 10/06/23 Rx subcutaneous pen (Humalog KwikPen mL (U-100) Insulin) Patient History Medical History Aortic stenosis Urinary retention Paroxysmal atrial fibrillation History of CVA (cerebrovascular accident) Type 1 diabetes mellitus with complications Alcohol abuse Vitamin D deficiency Proteinuria Primary hypercoagulable state Organic hypersomnia Leukopenia Left inguinal hernia Kidney disease, chronic, stage II (mild, 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) Insomnia Hoarseness Factor V Leiden mutation Dysphagia, oropharyngeal phase Complex sleep apnea syndrome CAD (coronary artery disease) Ascending aorta dilation Anticoagulant long-term use Anti-cardiolipin antibody positive Surgical History S/P CABG x 3 History of surgical removal of ganglion cyst History of hydrocelectomy History of hand surgery S/P coronary artery stent placement H/O hernia repair Hx of appendectomy Family History Mother , in her 60s of heart disease COPD (chronic obstructive pulmonary disease) Coronary heart disease Heart disease CHF Diabetes Hypertension Father , age 62 of melanoma Melanoma Heart disease Hypertension Brother Coronary heart disease Hypertension Myocardial infarction Son Diabetes Denies family history of Ovarian cancer Prostate cancer Breast cancer Lung cancer Colorectal cancer Stroke Social History Smoking Status: Never smoker Second Hand Exposure: Yes (As a child, parents smoked); Do You Dip or Chew Tobacco: No; Tobacco Cessation Education Requested by Patient: No Hx Alcohol Use: No Hx Substance Use: No Preferred Language: Swedish Communication Ability: Effective Communication Ability Comment: expressive and receptive aphasia Visual Impairment: No Limitations Hearing Ability: Normal Proof Plate Maker Required: No Beliefs That Will Affect Care: None marital status: Current Living Situation: Spouse and Family current occupational status: retired 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 How many Children do You have: 2 Other Information That Helps Us Care for You: No Feels Safe at Home: Yes Safety Concerns: Feels Safe At This Time Childhood Exposure to Second-Hand Smoke: Yes caffeine: Yes Dental Care, Regularly: Yes Physical Activity Frequency: Does not Exercise Seatbelt Use: always Sunscreen Use: Yes Assistive Devices: Cane and Walker Review of Systems Review of Systems: All systems reviewed & are unremarkable except as noted in HPI & below Constitutional: no fever, no chills and no fatigue Eyes: no problem reported Ear, Nose, Mouth, Throat: no problem reported Respiratory: no problem reported Cardiovascular: + edema; no problem reported Gastrointestinal: no nausea, no vomiting and no problem reported Musculoskeletal: no problem reported Integumentary: + skin ulcer, + wounds and + erythema Neurologic: + loss of sensation, + numbness and + pa resthesia; no generalized weakness Psychiatric: no problem reported Physical Exam Physical Exam: Lower extremity exam: DP/PT pulses nonpalpable. CFT brisk to digits. Right hallux ulcerated with underlying abscess. Ascending cellulitis to the level of the ankle. Edema noted to b/l LE. Pain on palpation of toe wit otherwise insensate foot. Advanced atrophic changes to b/l LE. Ulceration unstageable at this time. Constitutional: WD/WN, vitals as above + ill appearing and + obese Eyes: PERRL, conjunctivae normal, anicteric sclerae ENMT: external ear and nose normal, oropharynx normal Neck: trachea midline, no thyromegaly normal visual inspection Respiratory: normal respiratory effort; no respiratory distress Cardiovascular: Rate/Rhythm: regular rate and regular rhythm Chest (Breasts): Chest: normal inspection of chest Gastrointestinal (Abdomen): Inspection/Auscultation: abdomen normal to inspection Percussion/Palpation: + abdomen tender and abdomen soft Musculoskeletal: no cyanosis or clubbing, extremities motor strength 5/5 Head/Neck/Chest: normocephalic and head atraumatic Extremities: extremities normal to inspection Skin: + ulcer, + wound, + dry skin, + erythema and + fluctulance Neurologic: awake; no focal motor deficits Psychiatric: A+Ox3, euthymic affect Results & Data Vital Signs (Past 12 Hours) Vital Signs Temp Pulse Pulse Pulse Resp BP BP 10/06/23 16:54 36.7 C 78 18 188/70 H 10/06/23 16:00 86 10/06/23 15:10 82 17 10/06/23 13:11 10/06/23 13:00 83 15 10/06/23 11:51 10/06/23 11:51 82 19 10/06/23 11:50 77 10/06/23 10:06 36.7 C 107 H 18 122/50 L BP Pulse Ox O2 Del Method 10/06/23 16:54 96 Room Air 10/06/23 16:00 10/06/23 15:10 127/80 96 Room Air 10/06/23 13:11 Room Air 10/06/23 13:00 153/106 H 98 Room Air 10/06/23 11:51 97 Room Air 10/06/23 11:51 139/87 97 Room Air 10/06/23 11:50 10/06/23 10:06 97 Room Air Diagnostic Findings Plain film imaging reveals likely erosion of distal phalanx of right hallux with no soft tissue gas formation.
--- NOTE | 2023-10-06 17:53 | Pharmacy Report ---
Pharmacy Glycemic Short Note 2 - Date of Service October 06, 2023 - Glycemic Short BSG Results (Last 24 hours): 10/06/23 10/06/23 09:30 16:53 Glucose 317 H* POC Glucose 189 H OUTPATIENT ANTIDIABETIC REGIMEN: * Toujeo 25 units SC HS * Humalog SC AC * Carb ratio of 1:3 * Max dose of 105 units/day * HbA1c: 7.8% (09/06/23) ASSESSMENT: * 82 yo M admitted on 10/06/23 secondary to osteomyelitis. Pharmacy has been consulted to assist with inpatient glycemic management. Patient is a Type 1 diabetic as an outpatient. Please refer to outpatient regimen and most recent HbA1c above. * Possible need for patient to go to OR tomorrow so will be NPO after midnight. Ordered a T2DM diet for now. On cefepime and daptomycin. * BSG on AM lab was 317 mg/dL. Dinner accucheck was 189 mg/dL. Will base regimen on previous admission data. * Patient is on Toujeo at home, last dose last night per RN. Empirically required to reduce Toujeo by 20% when converting to Lantus. Will empirically reduce another 25% to account for patient being NPO after midnight. If no OR tomorrow, then can consider giving a small AM basal dose if BSG is elevated. PLAN FOR INPATIENT GLYCEMIC CONTROL: * Basal insulin * Lantus 15 units SC HS * Bolus insulin * NovoLog per scale ACHS or Q6hrs while NPO * Goal Range: Low 110 mg/dL - High 140 mg/dL * Correction Factor: 50 mg/dL/unit * Nutritional / Prandial insulin per carb ratio of 1 unit per 4 grams CHO consumed
[2023-10-06] MEDS: INSULIN ASPART PER UNIT CHARGE SC SCH (18:02)
[2023-10-06] MEDS: AZELASTINE HCL 0.1% NASAL 200 SPRAYS/27,400 MCG BTL NAE SCH (21:02)
[2023-10-06] MEDS: DOCUSATE SODIUM 100 MG CAP PO SCH (21:03)
[2023-10-06] MEDS: METOPROLOL TARTRATE 25 MG TAB PO SCH (21:04)
[2023-10-06] MEDS: LANTUS PER UNIT CHARGE SQ SCH (21:15)
[2023-10-06] MEDS: CEFEPIME 2,000 MG in SYRINGE 0 ML IV SCH (23:57)
[2023-10-07] MEDS ORDERED: oxyCODONE HCL IR 5 MG TAB (IMMEDIATE RELEASE) PO PRN ×2 (06:06)
[2023-10-07] MEDS ORDERED: ACETAMINOPHEN 325 MG TAB PO PRN (06:06)
[2023-10-07] MEDS: LEVOTHYROXINE SODIUM 25 MCG TABLET PO SCH (06:08)
[2023-10-07 06:33] LABS: Basophils # (auto) 0.05 K/uL (0.00-0.20); Basophils % (auto) 0.6 %; Eosinophils % (auto) 3.5 %; Hematocrit (blood only) 32.8 % (42.0-52.0); Hemoglobin 11.1 g/dl (14.0-18.0); Immature Granulocytes # (auto) 0.04 K/uL (0.01-0.20); Immature Granulocytes % (auto) 0.5 %; Lymphocytes # (auto) 0.87 K/uL (1.20-3.40); Mean Corpuscular Hemoglobin 30.7 pg (25.0-34.0); Mean Corpuscular Hgb Conc 33.8 g/dL (32.0-36.0); Mean Corpuscular Volume 90.6 fL (80.0-100.0); Mean Platelet Volume 10.1 fL (9.4-12.4); Monocytes # (auto) 0.69 K/uL (0.11-0.59); Neutrophils # (auto) 6.71 K/uL (1.40-6.50); Neutrophils % (auto) 77.4 %; Platelet Count 179 K/uL (130-400); RDW Coefficient of Variation 13.1 % (11.5-14.5); RDW Standard Deviation 43.5 fL (36.4-46.3); Red Blood Count 3.62 M/uL (4.70-6.10); White Blood Count 8.66 K/ul (4.8-10.8)
[2023-10-07 06:52] LABS: INR 1.8 (0.9-1.1)
[2023-10-07 06:54] LABS: BUN Creatinine Ratio 14.3 (10-20); Calcium 8.7 mg/dl (8.6-10.3); Est GFR (African American) 57.3 ml/min; Est GFR (Non-African American) 49.4 ml/min; Potassium 3.8 mmol/L (3.5-5.1)
[2023-10-07] MEDS: CHOLECALCIFEROL 25 MCG (1000 UNITS) TAB PO SCH (07:49)
[2023-10-07] MEDS: POLYETHYLENE (MIRALAX) 17 GM PACK PO SCH (07:50)
[2023-10-07] MEDS: ASPIRIN 81 MG ECTAB PO SCH (07:50)
[2023-10-07] MEDS: FOLIC ACID 1 MG TAB PO SCH (07:51)
[2023-10-07] MEDS: ISOSORBIDE MONO EXTENDED REL 30 MG TABCR PO SCH (07:51)
[2023-10-07] MEDS: DOXAZosin MESYLATE TAB 2 MG TAB PO SCH (07:51)
[2023-10-07] MEDS: FINASTERIDE 5 MG TAB PO SCH (07:51)
[2023-10-07] MEDS ORDERED: Nursing to Pharmacy Communication SCH ×2 (08:00→16:15)
[2023-10-07] MEDS ORDERED: TORSEMIDE 20 MG TAB PO SCH (09:00)
--- NOTE | 2023-10-07 09:03 | Anesthesiology Consultation ---
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 Surgery Operation Date: 10/07/23 07:00 Proposed Procedures p Right Hallux Incision and Drainage - Dm Gilbert DPM Height/Weight Height: 6 ft Weight: 83.4 kg Allergies Allergy/AdvReac Type Severity Reaction Status Date / Time clindamycin Allergy Intermediate Rash Verified 10/06/23 15:35 Sulfa (Sulfonamide Allergy Intermediate HIVES Verified 10/06/23 15:35 Antibiotics) lisinopril Allergy Unknown Unknown Verified 10/06/23 15:35 Penicillins Allergy Unknown Unknown Verified 10/06/23 15:35 Medications Home Medications Medication Instructions Recorded Confirmed Last Taken multivitamin 1 tab PO QDL ##0 11/28/08 10/06/23 11/27/19 docusate sodium 100 mg capsule 300 mg PO HS #0 caps 01/19/17 10/06/23 11/27/19 magnesium 250 mg tablet 250 mg PO QDL ##0 01/19/17 10/06/23 11/27/19 fluticasone propionate 50 2 sprays intranasal DAILY PRN 01/10/19 10/06/23 11/27/19 mcg/actuation nasal Nasal Congestion spray,suspension lutein 20 mg capsule 20 mg PO QDL 01/10/19 10/06/23 11/27/19 thiamine HCl (vitamin B1) 100 mg 100 mg PO QDL 01/10/19 10/06/23 11/27/19 tablet aspirin 81 mg tablet,delayed 81 mg PO QAM 11/10/19 10/06/23 11/28/19 release cholecalciferol (vitamin D3) 50 50 mcg PO DAILY 07/31/20 10/06/23 Unknown mcg (2,000 unit) capsule acetone (urine) test (Ketone Urine #50 ea 08/05/21 09/08/23 Unknown Test strips) FreeStyle Anna 2 Sensor (flash #2 ea 11/27/21 09/08/23 Unknown glucose sensor) polyethylene glycol 3350 17 17 g PO DAILY 12/01/21 10/06/23 Unknown gram/dose oral powder (Miralax) atorvastatin 40 mg tablet 40 mg PO HS #90 tabs 05/18/22 10/06/23 Unknown levothyroxine 25 mcg tablet 25 mcg PO QAM #90 tabs 05/18/22 10/06/23 Unknown azelastine 137 mcg (0.1 %) nasal 1 spray intranasal BID #90 mL 08/20/22 10/06/23 Unknown spray aerosol folic acid 1 mg tablet 1 mg PO DAILY 12/02/22 10/06/23 Unknown insulin glargine U-300 conc 300 25 unit subcut DAILY 01/15/23 10/06/23 Unknown unit/mL (1.5 mL) subcutaneous pen (Toujeo SoloStar U-300 Insulin) torsemide 20 mg tablet 20 mg PO QAM #90 tabs 02/04/23 10/06/23 Unknown finasteride 5 mg tablet 5 mg PO DAILY #90 tabs 03/04/23 10/06/23 Unknown warfarin 5 mg tablet See Rx Instructions PO .COMPLEX 04/02/23 10/06/23 Unknown #90 tabs metoprolol tartrate 25 mg tablet 25 mg PO BID #180 tabs 06/21/23 10/06/23 Unknown nitroglycerin 0.4 mg sublingual 0.4 mg sublingual UD PRN Chest 06/21/23 10/06/23 Unknown tablet (Nitrostat) Pain #100 tabs glucagon HCl 1 mg solution for 1 mg subcut Q20M PRN hypoglycemia 06/28/23 10/06/23 Unknown injection (Glucagon (HCl) #1 ea Emergency Kit) isosorbide mononitrate 30 mg 30 mg PO DAILY #90 tabs 07/16/23 10/06/23 Unknown tablet,extended release 24 hr doxazosin 2 mg tablet 2 mg PO DAILY 09/08/23 10/06/23 Unknown pen needle, diabetic 31 gauge x #200 ea 09/08/23 09/08/23 Unknown 1/4" (Comfort EZ Pen [place]) insulin lispro 100 unit/mL See Rx Instructions subcut TID #95 09/28/23 10/06/23 Unknown subcutaneous pen (Humalog KwikPen mL (U-100) Insulin) Active Medications Generic Name Dose Route Start Last Admin Trade Name Freq PRN Reason Stop Dose Admin Aspirin 81 mg 10/07/23 09:00 10/07/23 07:50 Aspirin 81 Mg Ectab PO 11/06/23 08:59 81 mg QAM PENNY Administration Azelastine HCl 1 sprays 10/06/23 21:00 10/07/23 07:51 Azelastine Hcl 0.1% Nasal 200 Sprays/27,400 Mcg Btl CASSANDRA 11/05/23 20:59 1 sprays BID PENNY Administration Docusate Sodium 300 mg 10/06/23 21:00 10/06/23 21:03 Docusate Sodium 100 Mg Cap PO 11/05/23 20:59 300 mg HS PENNY Administration Doxazosin Mesylate 2 mg 10/07/23 09:00 10/07/23 07:51 Doxazosin Mesylate Tab 2 Mg Tab PO 11/06/23 08:59 2 mg DAILY PENNY Administration Finasteride 5 mg 10/07/23 09:00 10/07/23 07:51 Finasteride 5 Mg Tab PO 11/06/23 08:59 5 mg DAILY PENNY Administration Folic Acid 1 mg 10/07/23 09:00 10/07/23 07:51 Folic Acid 1 Mg Tab PO 11/06/23 08:59 1 mg DAILY PENNY Administration Cefepime HCl 2,000 mg/ Syringe 20 mls @ 5 mls/min 10/07/23 00:30 10/06/23 23:57 IV 11/18/23 00:29 5 mls/min Q12H PENNY Administration Protocol Insulin Glargine 15 units 10/06/23 21:00 10/06/23 21:15 Lantus Per Unit Charge SQ 11/05/23 20:59 15 units HS PENNY Administration Protocol Isosorbide Mononitrate 30 mg 10/07/23 09:00 10/07/23 07:51 Isosorbide Kemper Extended Rel 30 Mg Tabcr PO 11/06/23 08:59 30 mg DAILY PENNY Administration Levothyroxine Sodium 25 mcg 10/07/23 06:30 10/07/23 06:08 Levothyroxine Sodium 25 Mcg Tablet PO 11/06/23 06:29 25 mcg DAILYBB PENNY Administration Metoprolol Tartrate 25 mg 10/06/23 21:00 10/07/23 07:50 Metoprolol Tartrate 25 Mg Tab PO 11/05/23 20:59 25 mg BID PENNY Administration Polyethylene Glycol 17 gm 10/07/23 09:00 10/07/23 07:50 Polyethylene (Miralax) 17 Gm Pack PO 11/06/23 08:59 Not Given DAILY PENNY Vitamin D 50 mcg 10/07/23 09:00 10/07/23 07:49 Cholecalciferol 25 Mcg (1000 Units) Tab PO 11/06/23 08:59 50 mcg DAILY PENNY Administration Past Medical History Medical History Aortic stenosis Urinary retention Paroxysmal atrial fibrillation History of CVA (cerebrovascular accident) Type 1 diabetes mellitus with complications Alcohol abuse Vitamin D deficiency Proteinuria Primary hypercoagulable state Organic hypersomnia Leukopenia Left inguinal hernia Kidney disease, chronic, stage II (mild, 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) Insomnia Hoarseness Factor V Leiden mutation Dysphagia, oropharyngeal phase Complex sleep apnea syndrome CAD (coronary artery disease) Ascending aorta dilation Anticoagulant long-term use Anti-cardiolipin antibody positive Past Family History Family History Mother , in her 60s of heart disease COPD (chronic obstructive pulmonary disease) Coronary heart disease Heart disease CHF Diabetes Hypertension Father , age 62 of melanoma Melanoma Heart disease Hypertension Brother Coronary heart disease Hypertension Myocardial infarction Son Diabetes Denies family history of Ovarian cancer Prostate cancer Breast cancer Lung cancer Colorectal cancer Stroke Past Surgical History Surgical History S/P CABG x 3 History of surgical removal of ganglion cyst History of hydrocelectomy History of hand surgery S/P coronary artery stent placement H/O hernia repair Hx of appendectomy Social History Smoking Status: Never smoker Do You Dip or Chew Tobacco: No Hx Alcohol Use: No Alcohol type: wine alcohol intake frequency: a few times a month Hx Substance Use: No substance use type: does not use Physical Exam Vital Signs Last Vital Signs Temp 98.1 F 10/07/23 07:47 Pulse 83 10/07/23 07:47 Resp 16 10/07/23 07:47 BP 178/75 H 10/07/23 07:47 Pulse Ox 95 10/07/23 07:47 O2 Del Method Room Air 10/07/23 07:47 FiO2 21 10/07/23 03:19 Testing Laboratory Results 10/07/23 05:55 10/07/23 05:55 PT 19.0 Seconds (9.0-12.0) H 10/07/23 05:55 INR 1.8 (0.9-1.1) H 10/07/23 05:55 APTT 43 Seconds (21-31) H 10/06/23 09:30 10/07/23 07:43 POC Glucose 82 Electrocardiogram Date: 10/06/23 Sinus rhythm with 1st degree A-V block Septal infarct , age undetermined ST & T wave abnormality, consider lateral ischemia Abnormal ECG When compared with ECG of 04-DEC-2022 12:18, Vent. rate has increased BY 30 BPM Septal infarct is now Present ST now depressed in Lateral leads T wave inversion now evident in Lateral leads Echocardiogram Date: 12/03/22 Compared with 11/23/21 study, mod MR now seen, otherwise no significant change LV systolic function is normal EF 60-65% LV wall motion is normal Mod concentric LVH RV is normal in size and function Mild valvular aortic stenosis Mod MR
--- NOTE | 2023-10-07 10:10 | Cardiology Consultation ---
Date of Consultation October 07, 2023 Assessment & Plan (1) Multi-vessel coronary artery stenosis: (2) Aortic stenosis: (3) Paroxysmal atrial fibrillation: (4) SOB (shortness of breath): Plan 1. Coronary disease: He has known coronary disease and has had bypass surgery a little less than 1 year ago. That improved his symptoms substantially and they have remained stable. He does not sense any recent worsening of his exertional ability and has had no exertional chest discomfort. His left ventricular function remains normal on echocardiography yesterday and cardiac enzymes have been negative. There is no reason to believe that his coronary artery situation has changed since his bypass surgery. I would not pursue further evaluation (such as stress testing). 2. Aortic stenosis: He does have mild aortic stenosis, that has not progressed to any significant extent and there is no indication for further evaluation or treatment. 3. Atrial fibrillation: He does carry diagnosis of paroxysmal atrial fibrillation, currently he is in sinus rhythm and he is on an anticoagulant for other reasons. I would continue this although it could safely be held throughout surgery. 4. Shortness of breath: He presented with primarily dyspnea on exertion prior to bypass surgery, that improved substantially with bypass surgery and has not worsened since. This is possibly an anginal equivalent, or was caused by left ventricular dysfunction with activity, but in any case is stable and I would not pursue evaluation. I would recommend proceeding with surgery without further cardiac evaluation. History of Present Illness Reason for Consultation: Coronary disease, preop Attending Physician: Edith Isabel MD History of Present Illness This is an 82-year-old male who follows with Dr. Castillo in the office and has a history of paroxysmal atrial fibrillation known to be present since November 2022 (he has had a left atrial appendage clip and partial Maze procedure in December 2022 but remains on anticoagulation with Coumadin due to a hypercoagulable state). Additionally he has coronary artery disease for which she had a right coronary artery PCI but then required bypass surgery in December 2022 (x 3 vessels, GOODRICH to LAD, SVG to D1, SVG to RCA PL). He had dyspnea on exertion preceding his bypass surgery but that has continued. He also has a dilated ascending aorta but this is not being followed due to him desiring not to have intervention. He also has aortic stenosis. I believe his last prior echocardiogram was December 03, 2022 (before bypass surgery) and his ejection fraction was 60 to 65% with normal wall motion, moderate MR and mild aortic stenosis. At catheterization his peak gradient across aortic valve was 5 to 10 mmHg. His electrocardiogram October 06, 2023 shows sinus rhythm at 91 bpm with a probable septal infarct and some nonspecific lateral ST-T abnormalities. An echocardiogram done on October 06, 2023 shows normal left systolic function with mild aortic stenosis. He was last seen in the office April 15, 2023 and appeared to be doing well with ongoing exertional shortness of breath but no exertional chest discomfort. He presented to the emergency room on October 06, 2023 with an infection of the right great toe. There is a question of osteomyelitis and I&D is anticipated. I reviewed symptoms with him, prior to his bypass surgery he could not climb steps due to significant shortness of breath, in fact he had to have a chair installed to ride up to the second floor. After bypass surgery and rehab he is able to walk up steps and has not chair. That has not changed recently and he continues to be relatively active and without recurrence of significant dyspnea on exertion. He has had no chest discomfort. Allergies Allergy/AdvReac Type Severity Reaction Status Date / Time clindamycin Allergy Intermediate Rash Verified 10/06/23 15:35 Sulfa (Sulfonamide Allergy Intermediate HIVES Verified 10/06/23 15:35 Antibiotics) lisinopril Allergy Unknown Unknown Verified 10/06/23 15:35 Penicillins Allergy Unknown Unknown Verified 10/06/23 15:35 Home Medications Medication Instructions Recorded Confirmed Type multivitamin 1 tab PO QDL ##0 11/28/08 10/06/23 History docusate sodium 100 mg capsule 300 mg PO HS #0 caps 01/19/17 10/06/23 History magnesium 250 mg tablet 250 mg PO QDL ##0 01/19/17 10/06/23 History fluticasone propionate 50 2 sprays intranasal DAILY PRN 01/10/19 10/06/23 History mcg/actuation nasal Nasal Congestion spray,suspension lutein 20 mg capsule 20 mg PO QDL 01/10/19 10/06/23 History thiamine HCl (vitamin B1) 100 mg 100 mg PO QDL 01/10/19 10/06/23 History tablet aspirin 81 mg tablet,delayed 81 mg PO QAM 11/10/19 10/06/23 History release cholecalciferol (vitamin D3) 50 50 mcg PO DAILY 07/31/20 10/06/23 History mcg (2,000 unit) capsule acetone (urine) test (Ketone Urine #50 ea 08/05/21 09/08/23 Rx Test strips) FreeStyle Anna 2 Sensor (flash #2 ea 11/27/21 09/08/23 Rx glucose sensor) polyethylene glycol 3350 17 17 g PO DAILY 12/01/21 10/06/23 History gram/dose oral powder (Miralax) atorvastatin 40 mg tablet 40 mg PO HS #90 tabs 05/18/22 10/06/23 Rx levothyroxine 25 mcg tablet 25 mcg PO QAM #90 tabs 05/18/22 10/06/23 Rx azelastine 137 mcg (0.1 %) nasal 1 spray intranasal BID #90 mL 08/20/22 10/06/23 Rx spray aerosol folic acid 1 mg tablet 1 mg PO DAILY 12/02/22 10/06/23 History insulin glargine U-300 conc 300 25 unit subcut DAILY 01/15/23 10/06/23 History unit/mL (1.5 mL) subcutaneous pen (Toumichaelo SoloStar U-300 Insulin) torsemide 20 mg tablet 20 mg PO QAM #90 tabs 02/04/23 10/06/23 Rx finasteride 5 mg tablet 5 mg PO DAILY #90 tabs 03/04/23 10/06/23 Rx warfarin 5 mg tablet See Rx Instructions PO .COMPLEX 04/02/23 10/06/23 Rx #90 tabs metoprolol tartrate 25 mg tablet 25 mg PO BID #180 tabs 06/21/23 10/06/23 Rx nitroglycerin 0.4 mg sublingual 0.4 mg sublingual UD PRN Chest 06/21/23 10/06/23 Rx tablet (Nitrostat) Pain #100 tabs glucagon HCl 1 mg solution for 1 mg subcut Q20M PRN hypoglycemia 06/28/23 10/06/23 Rx injection (Glucagon (HCl) #1 ea Emergency Kit) isosorbide mononitrate 30 mg 30 mg PO DAILY #90 tabs 07/16/23 10/06/23 Rx tablet,extended release 24 hr doxazosin 2 mg tablet 2 mg PO DAILY 09/08/23 10/06/23 History pen needle, diabetic 31 gauge x #200 ea 09/08/23 09/08/23 Rx 1/4" (Comfort EZ Pen [place]) insulin lispro 100 unit/mL See Rx Instructions subcut TID #95 09/28/23 10/06/23 Rx subcutaneous pen (Humalog KwikPen mL (U-100) Insulin) Patient History Medical History Aortic stenosis Urinary retention Paroxysmal atrial fibrillation History of CVA (cerebrovascular accident) Type 1 diabetes mellitus with complications Alcohol abuse Vitamin D deficiency Proteinuria Primary hypercoagulable state Organic hypersomnia Leukopenia Left inguinal hernia Kidney disease, chronic, stage II (mild, 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) Insomnia Hoarseness Factor V Leiden mutation Dysphagia, oropharyngeal phase Complex sleep apnea syndrome CAD (coronary artery disease) Ascending aorta dilation Anticoagulant long-term use Anti-cardiolipin antibody positive Surgical History S/P CABG x 3 History of surgical removal of ganglion cyst History of hydrocelectomy History of hand surgery S/P coronary artery stent placement H/O hernia repair Hx of appendectomy Family History Mother , in her 60s of heart disease COPD (chronic obstructive pulmonary disease) Coronary heart disease Heart disease CHF Diabetes Hypertension Father , age 62 of melanoma Melanoma Heart disease Hypertension Brother Coronary heart disease Hypertension Myocardial infarction Son Diabetes Denies family history of Ovarian cancer Prostate cancer Breast cancer Lung cancer Colorectal cancer Stroke Social History Smoking Status: Never smoker Second Hand Exposure: Yes (As a child, parents smoked); Do You Dip or Chew Tobacco: No; Tobacco Cessation Education Requested by Patient: No Hx Alcohol Use: No Hx Substance Use: No Preferred Language: Lithuanian Communication Ability: Effective Communication Ability Comment: expressive and receptive aphasia Visual Impairment: No Limitations Hearing Ability: Normal Algebra Tutor Required: No Beliefs That Will Affect Care: None marital status: Current Living Situation: Spouse and Family current occupational status: retired 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 HEENT: Unremarkable Neck: No jugular venous distention, carotid pulses are normal and equal bilaterally without bruits. Pulmonary: Monitor crackles at the bases on auscultation bilaterally. Cardiac: Regular rhythm with a grade 2/6 crescendo decrescendo murmur at the base, no gallop or rub. Abdomen: Soft, nontender with normal bowel sounds. Extremities: No edema. Neurologic: No focal findings. Skin: No rash, ecchymoses or petechiae. Results & Data Vital Signs (Past 12 Hours) Vital Signs Temp Pulse Pulse Resp BP Pulse Ox O2 Del Method 10/07/23 07:47 36.7 C 83 16 178/75 H 95 Room Air 10/07/23 03:19 75 19 94 10/06/23 23:18 22 96 FiO2 10/07/23 07:47 10/07/23 03:19 21 10/06/23 23:18 21 Laboratory Results Cardiac Enzymes 10/06/23 Range/Units 09:30 AST 18 (13-39) U/L Troponin I High Sens 13.9 (0-20) pg/ml Coagulation 10/06/23 10/07/23 Range/Units 09:30 05:55 PT 20.2 H 19.0 H (9.0-12.0) Seconds APTT 43 H (21-31) Seconds CBC 10/06/23 10/07/23 Range/Units 09:30 05:55 WBC 10.69 8.66 (4.8-10.8) K/ul RBC 4.18 L 3.62 L (4.70-6.10) M/uL Hgb 12.8 L 11.1 L (14.0-18.0) g/dl Hct 38.1 L 32.8 L (42.0-52.0) % Plt Count 183 179 (130-400) K/uL Neut # (Auto) 9.16 H 6.71 H (1.40-6.50) K/uL Lymph # (Auto) 0.64 L 0.87 L (1.20-3.40) K/uL [place] # (Auto) 0.74 H 0.69 H (0.11-0.59) K/uL Eos # (Auto) 0.07 0.30 (0.00-0.50) K/uL Baso # (Auto) 0.04 0.05 (0.00-0.20) K/uL Comprehensive Metabolic Panel 10/06/23 10/07/23 Range/Units 09:30 05:55 Sodium 133 L 137 (136-145) mmol/L Potassium 4.2 3.8 (3.5-5.1) mmol/L Chloride 99 106 (98-107) mmol/L Carbon Dioxide 26 24 (21-32) mmol/L BUN 21 19 (6-23) mg/dl Creatinine 1.35 1.33 (0.6-1.4) mg/dl Glucose 317 H* 76 (70-99(Fasting)) mg/dl Calcium 9.1 8.7 (8.6-10.3) mg/dl AST 18 (13-39) U/L ALT 21 (7-52) U/L Alkaline Phosphatase 91 (34-104) U/L Total Protein 7.2 (6.0-8.3) gm/dl Albumin 3.9 (3.4-5.0) gm/dl Intake and Output 10/06/23 10/07/23 10/07/23 22:59 06:59 14:59 Other: Weight 83.4 kg 83.4 kg Weight Measurement Method Standing Scale Patient Weight 10/08/23 06:59 Weight 83.4 kg PG Care Time/CCT Total # of Minutes Spent Total Time Spent with Patient: Total time spent is greater than 50% in coordination of care (as documented) at patient's floor/unit and/or counseling patient: Coding Level of Care Code 10392 INT INP/OBS CARE 3/75MIN Diagnoses Multi-vessel coronary artery stenosis I25.10 Aortic stenosis I35.0 Paroxysmal atrial fibrillation I48.0 SOB (shortness of breath) R06.02
--- NOTE | 2023-10-07 11:25 | XCELERA ---
[id number] \\[id number]
[2023-10-07] MEDS: THIAMINE HCL 100 MG TAB PO SCH (11:51)
[2023-10-07] MEDS: MULTIVITAMIN TAB PO SCH (11:51)
[2023-10-07] MEDS: MAGNESIUM OXIDE 400 MG TAB PO SCH (11:51)
[2023-10-07] MEDS: INSULIN ASPART PER UNIT CHARGE SC SCH ×2 (11:52→18:08)
--- NOTE | 2023-10-07 12:11 | Pharmacy Report ---
Pharmacy Glycemic Short Note 2 - Date of Service October 07, 2023 - Glycemic Short BSG Results (Last 24 hours): 10/06/23 10/06/23 10/07/23 16:53 20:56 05:55 Glucose 76 POC Glucose 189 H 131 H 10/07/23 10/07/23 07:43 11:38 Glucose POC Glucose 82 91 OUTPATIENT ANTIDIABETIC REGIMEN: * Toujeo 25 units SC HS * Humalog SC AC * Carb ratio of 1:3 * Max dose of 105 units/day * HbA1c: 7.8% (09/06/23) ASSESSMENT: 10/06: * Patient received 15 units of basal insulin and 12 units bolus insulin yesterday. * BSGs yesterday were 189-131 at dinner and HS respectively. Fasting BSG today = 76 mg/dl. * NPO today for I&D of R great toe due to infection. Pre-lunch BSG was low at 91 mg/dl. * Basal insulin for tonight ordered on a scale based on BSG. Will continue with Novolog parameters the same. 10/05: * 82 yo M admitted on 10/06/23 secondary to osteomyelitis. Pharmacy has been consulted to assist with inpatient glycemic management. Patient is a Type 1 diabetic as an outpatient. Please refer to outpatient regimen and most recent HbA1c above. * Possible need for patient to go to OR tomorrow so will be NPO after midnight. Ordered a T2DM diet for now. On cefepime and daptomycin. * BSG on AM lab was 317 mg/dL. Dinner accucheck was 189 mg/dL. Will base regimen on previous admission data. * Patient is on Toujeo at home, last dose last night per RN. Empirically required to reduce Toujeo by 20% when converting to Lantus. Will empirically reduce another 25% to account for patient being NPO after midnight. If no OR tomorrow, then can consider giving a small AM basal dose if BSG is elevated. PLAN FOR INPATIENT GLYCEMIC CONTROL: * Basal insulin * Lantus 5/10/15 units SC HS based on BSG * Bolus insulin * NovoLog per scale ACHS or Q6hrs while NPO * Goal Range: Low 110 mg/dL - High 140 mg/dL * Correction Factor: 50 mg/dL/unit * Nutritional / Prandial insulin per carb ratio of 1 unit per 4 grams CHO consumed
[2023-10-07] MEDS: DAPTOmycin 300 MG in SYRINGE 0 ML IV SCH (12:39)
[2023-10-07] MEDS ORDERED: fentaNYL citrate PF 100 MCG/2 ML VIAL ONE (13:01)
[2023-10-07] MEDS ORDERED: ONDANSETRON INJ 2 MG/ML 2 ML VIAL ONE (13:06)
[2023-10-07] MEDS ORDERED: PROPOFOL IV EMULSION 10 MG/ML 20 ML VIAL IV ONE (13:06)
[2023-10-07] MEDS ORDERED: LIDOCAINE 2% 2 ML VIAL/AMP(20MG/ML) INFIL ONE (13:06)
--- NOTE | 2023-10-07 13:08 | History & Physical Bridge Note ---
Date of Service October 07, 2023 History & Physical Bridge Note I have examined the patient, reviewed the History & Physical and in the interval since the performance of the History & Physical I have noted the following changes of clinical significance: no changes noted
[2023-10-07] MEDS ORDERED: PROMETHAZINE HCL 6.25 MG in SODIUM CHLORIDE 0.9% 50 ML IV PRN (13:27)
[2023-10-07] MEDS ORDERED: HYDROmorphone INJ 1 MG/ML SYRINGE IV PRN (13:27)
[2023-10-07] MEDS ORDERED: ePHEDrine sulfate 50 MG/ML AMP IV PRN (13:27)
[2023-10-07] MEDS ORDERED: ATROPINE SULFATE 0.1 MG/ML 10ML SYR IV PRN (13:27)
[2023-10-07] MEDS: BUPIVACAINE 0.5 % 5 MG/1 ML MPF 30ML VIAL ONE (13:52)
--- NOTE | 2023-10-07 13:55 | Post Operative Brief Note ---
Immediate Post Op Note v1 Date of Surgery October 07, 2023 Pre & Post Diagnosis preop diagnosis: Right hallux osteomyelitis Postop diagnosis: Same I identified the patient and participated in the time-out.: Yes Procedure Right hallux I&D with bone biopsy Surgeon CJ MoellerM Transport Manager None Estimated Blood Loss 3 Findings Consistent with Post-Op Diagnosis Anesthesia Type MAC Complications none Disposition Accompanied Patient To Recovery: Yes Disposition: Recovery Room
--- NOTE | 2023-10-07 14:38 | Hospitalist Progress Note ---
Date of Service October 07, 2023 Assessment & Plan (1) Osteomyelitis of toe of right foot: Plan: With associated cellulitis Cefepime + daptomycin Follow up blood cultures Podiatry will take the patient to the OR. Cardiology recommended to proceed with surgery without further cardiac evaluation Podiatry recommended ID and vascular consults. (2) Diabetic foot ulcer: Plan: Arterial US, poorly palpable peripheral pulses Consult vascular (3) Murmur: Plan: TTE reviewed (4) Paroxysmal atrial fibrillation: Plan: s/p left atrial appendage clip and partial Maze procedure during CABG in December 2022 Currently in NSR (5) S/P CABG x 3: Plan: December 2022 Continue aspirin, ISMN, metoprolol Atorvastatin on hold with daptomycin (6) Complex sleep apnea syndrome: Plan: BiPAP / HS, may use own BiPAP (7) Diabetes type 1, uncontrolled: Plan: Hemoglobin A1C 7.8 in September, no need to repeat Reduce Lantus dosing to 25 -> 15 units HS Novolog: --Goal BSG Range: Low 110 mg/dL, High 140 mg/dL --Correction Factor: 7 mg/dL/unit --Carbohydrate ratio = 25 g/unit --BSGs ACHS if eating, q6h if npo Consult pharmacy for ongoing management in setting of T1DM (8) Hypothyroidism: Plan: TSH 3.474 in 01/2023 Continue levothyroxine (9) Hypertension: Plan: Continue metoprolol, ISMN and torsemide (hold torsemide pre-operatively) (10) Anticoagulant long-term use: (11) Cellulitis: Plan VTE prophylaxis - INR 1.9 on admission, 1.3 today Diet - T2DM after OR Admission and Anticipated Discharge Date Admission Date: October 06, 2023 Subjective When I saw the patient earlier, he was still waiting for surgery. He tells me that his pain had improved with the IV antibiotics. Review of Systems Review of Systems: All systems reviewed & are unremarkable except as noted in Subjective Physical Exam Physical Exam: General: Awake, conversant Heart: S1, S2/regular rate and rhythm, no murmur rubs or gallops Lungs: Clear to auscultation bilaterally. Normal effort Abdomen: Soft/nontender/nondistended. No hepatosplenomegaly Extremities: No clubbing/cyanosis. No edema, right first toe has an unstageable ulcer on the tip. There is erythema, swelling and warmth surrounding the ulcer. Behavior: Appropriate, cooperative Results & Data Results & Data Vital Signs (Past 12 Hours) Vital Signs Temp Pulse Pulse Pulse Resp BP Pulse Ox 10/07/23 14:25 37.3 C 73 15 121/58 L 94 10/07/23 14:15 81 15 106/44 L 96 10/07/23 14:05 75 18 124/45 L 94 10/07/23 13:58 36.0 C L 72 13 102/38 L 100 10/07/23 12:57 37 C 65 20 118/54 L 94 10/07/23 07:47 36.7 C 83 16 178/75 H 95 10/07/23 03:19 75 19 94 O2 Del Method FiO2 10/07/23 14:25 Room Air 10/07/23 14:15 Room Air 10/07/23 14:05 Room Air 10/07/23 13:58 Room Air 10/07/23 12:57 Room Air 10/07/23 07:47 Room Air 10/07/23 03:19 21 Laboratory Results Abnormal lab results 10/06/23 10/06/23 10/06/23 Range/Units 11:51 16:53 20:56 RBC (4.70-6.10) M/uL Hgb (14.0-18.0) g/dl Hct (42.0-52.0) % Neut # (Auto) (1.40-6.50) K/uL Lymph # (Auto) (1.20-3.40) K/uL [place] # (Auto) (0.11-0.59) K/uL PT (9.0-12.0) Seconds INR (0.9-1.1) POC Glucose 189 H 131 H (70-99) mg/dl C-Reactive Protein 9.56 H (0-0.5) mg/dl 10/07/23 Range/Units 05:55 RBC 3.62 L (4.70-6.10) M/uL Hgb 11.1 L (14.0-18.0) g/dl Hct 32.8 L (42.0-52.0) % Neut # (Auto) 6.71 H (1.40-6.50) K/uL Lymph # (Auto) 0.87 L (1.20-3.40) K/uL [place] # (Auto) 0.69 H (0.11-0.59) K/uL PT 19.0 H (9.0-12.0) Seconds INR 1.8 H (0.9-1.1) POC Glucose (70-99) mg/dl C-Reactive Protein (0-0.5) mg/dl Diagnostic Findings Duplex Scan Lower Extremity Artery 10/06/23 12:51 US arterial duplex LE RT HISTORY: 82 years-old Male 1st toe diabetic OM ?PAD acute pain in the right lower leg with possible osteomyelitis COMPARISON: Right toe radiographs of same day TECHNIQUE: Multiple real-time sonographic images of the right lower extremity arterial structures were obtained assessing grayscale appearance, color and spectral flow FINDINGS: Diffuse atherosclerosis. Triphasic waveforms are noted from the common femoral to the anterior tibial arteries with monophasic waveforms in the posterior tibial, peroneal and dorsalis pedis arteries. Diminished peak systolic velocities in the dorsalis pedis artery, 13 cm/s. Nonspecific areas of increased echogenicity noted within the superficial femoral vein. No acute occlusive DVT identified. Likely benign inguinal chain lymph nodes. No brachial indices were unable to be obtained secondary to the patient's wound. IMPRESSION: 1. No arterial occlusion is identified. 2. Atherosclerosis with monophasic waveforms within the lower leg. ACT 112: Negative or not required by law. The above report was generated using voice recognition software. It may contain grammatical, syntax or spelling errors. Electronically signed by: Guille Morin M.D. 10/06/2023 3:32 PM PG Care Time/CCT Total # of Minutes Spent Total Time Spent with Patient: Total time spent is greater than 50% in coordination of care (as documented) at patient's floor/unit and/or counseling patient: Coding Level of Care Code 52173 SUB INP/OBS CARE 2/35MIN Diagnoses Osteomyelitis of toe of right foot M86.9 Diabetic foot ulcer E10.621; L97.419 Diabetes mellitus type: type 1 Diabetic foot ulcer location: midfoot Laterality: right Non-pressure ulcer stage: unspecified non-pressure ulcer stage Murmur R01.1 Paroxysmal atrial fibrillation I48.0 S/P CABG x 3 Z95.1 Complex sleep apnea syndrome G47.31 Diabetes type 1, uncontrolled E10.65 Hypothyroidism E03.9 Hypertension I10 Anticoagulant long-term use Z79.01 Cellulitis L03.90 (2) Diabetic foot ulcer Diabetes mellitus type: type 1 Diabetic foot ulcer location: midfoot Laterality: right Non-pressure ulcer stage: unspecified non-pressure ulcer stage Qualified Code(s): E10.621 - Type 1 diabetes mellitus with foot ulcer; L97.419 - Non-pressure chronic ulcer of right heel and midfoot with unspecified severity
--- NOTE | 2023-10-07 14:44 | Anesthesiology Progress Note ---
Date of Service October 07, 2023 Anesthesia Post Procedure Vital Signs Vital Signs: Temp Pulse Pulse Pulse Resp BP BP 10/07/23 14:25 37.3 C 73 15 121/58 L 10/07/23 14:15 81 15 106/44 L 10/07/23 14:05 75 18 124/45 L 10/07/23 13:58 36.0 C L 72 13 102/38 L 10/07/23 12:57 37 C 65 20 118/54 L 10/07/23 07:47 36.7 C 83 16 178/75 H 10/07/23 03:19 75 19 10/06/23 23:18 22 10/06/23 22:00 10/06/23 21:00 36.7 C 86 18 144/69 H 10/06/23 16:54 36.7 C 78 18 188/70 H 10/06/23 16:00 86 10/06/23 15:10 82 17 127/80 Pulse Ox O2 Del Method FiO2 10/07/23 14:25 94 Room Air 10/07/23 14:15 96 Room Air 10/07/23 14:05 94 Room Air 10/07/23 13:58 100 Room Air 10/07/23 12:57 94 Room Air 10/07/23 07:47 95 Room Air 10/07/23 03:19 94 21 10/06/23 23:18 96 21 10/06/23 22:00 Room Air, BiPAP 10/06/23 21:00 94 Room Air 10/06/23 16:54 96 Room Air 10/06/23 16:00 10/06/23 15:10 96 Room Air Pain Intensity Right Great Toe: Pain Intensity: 5 Transfer of Care Handoff Completed per policy Notes Mental Status: alert / awake / arousable and participated in evaluation Nausea / Vomiting: adequately controlled Pain: adequately controlled Airway Patency, RR, SpO2: stable & adequate BP & HR: stable & adequate Hydration State: stable & adequate Anesthetic Complications: no major complications apparent and Pt Satisfied with anesthetic care
[2023-10-07] MEDS: LANTUS PER UNIT CHARGE SQ SCH (21:32)
[2023-10-07] MEDS: ATORVASTATIN 40 MG TAB PO SCH (21:35)
--- NOTE | 2023-10-08 09:01 | Pharmacy Report ---
Pharmacy Glycemic Short Note 2 - Date of Service October 08, 2023 - Glycemic Short BSG Results (Last 24 hours): 10/07/23 10/07/23 10/07/23 11:38 12:56 14:22 POC Glucose 91 87 79 10/07/23 10/07/23 10/08/23 16:44 20:28 07:42 POC Glucose 157 H 152 H 93 OUTPATIENT ANTIDIABETIC REGIMEN: * Toujeo 25 units SC HS * Humalog SC AC * Carb ratio of 1:3 * Max dose of 105 units/day * HbA1c: 7.8% (09/06/23) ASSESSMENT: 10/07: * Sheng received 25 units of insulin yesterday, 10 basal + 15 bolus. BSGs were: 91-69-001-152 mg/dL. * Fasting BSG was 93 mg/dL this AM, trending up. Will adjust scaled basal dose at HS tonight to provide 10 or 15 units now that patient will be eating more. * No change to Novolog. 10/06: * Patient received 15 units of basal insulin and 12 units bolus insulin yesterday. * BSGs yesterday were 189-131 at dinner and HS respectively. Fasting BSG today = 76 mg/dl. * NPO today for I&D of R great toe due to infection. Pre-lunch BSG was low at 91 mg/dl. * Basal insulin for tonight ordered on a scale based on BSG. Will continue with Novolog parameters the same. 10/05: * 82 yo M admitted on 10/06/23 secondary to osteomyelitis. Pharmacy has been consulted to assist with inpatient glycemic management. Patient is a Type 1 diabetic as an outpatient. Please refer to outpatient regimen and most recent HbA1c above. * Possible need for patient to go to OR tomorrow so will be NPO after midnight. Ordered a T2DM diet for now. On cefepime and daptomycin. * BSG on AM lab was 317 mg/dL. Dinner accucheck was 189 mg/dL. Will base regimen on previous admission data. * Patient is on Toujeo at home, last dose last night per RN. Empirically required to reduce Toujeo by 20% when converting to Lantus. Will empirically reduce another 25% to account for patient being NPO after midnight. If no OR tomorrow, then can consider giving a small AM basal dose if BSG is elevated. PLAN FOR INPATIENT GLYCEMIC CONTROL: * Basal insulin * Lantus 10/15 units SC HS based on BSG * Bolus insulin * NovoLog per scale ACHS or Q6hrs while NPO * Goal Range: Low 110 mg/dL - High 140 mg/dL * Correction Factor: 50 mg/dL/unit * Nutritional / Prandial insulin per carb ratio of 1 unit per 4 grams CHO consumed
--- NOTE | 2023-10-08 09:32 | Consultation ---
Date of Consultation October 08, 2023 Assessment & Plan (1) Peripheral arterial disease: Pt wiht mild RLE PAD, 3 vessel runoff and biphasic waveforms. Should be adequate for healing, however, would be happy to reeval if pt's wound continues to deteriorate. No indications for vascular surgical intervention at this time. Pt aware. Please call if needed. History of Present Illness Reason for Consultation: PAD Attending Physician: Edith Isabel MD History of Present Illness 82 yo m with hx of a fib on coumadin, DMII, CAD s/p CABG, NSTEMI, HTN, sleep apnea, CKD, neuropathy, CVA, admitted with R foot osteomyelitis, seen in consultation today for PAD. Pt with R great toe wound developed after podiatry saw him about 1 month ago. Pt states no prior knowledge of PAD, no personal hx of smoking. Denies claudication, rest pain, previous nonhealing wounds or ulcers. States the area became red and painful over about 4 days prior to arrival. Pt denies CHACON, fever, chest pain, SOB, abd pain, N/V, other complaints. Arterial US demonstrates mild diffuse RLE PAD with 3 vessel runoff and biphasic waveforms. Allergies Allergy/AdvReac Type Severity Reaction Status Date / Time clindamycin Allergy Intermediate Rash Verified 10/07/23 12:57 lisinopril Allergy Intermediate falling Verified 10/07/23 12:57 down ? Penicillins Allergy Intermediate Hives Verified 10/07/23 12:57 Sulfa (Sulfonamide Allergy Intermediate HIVES Verified 10/07/23 12:57 Antibiotics) Home Medications Medication Instructions Recorded Confirmed Type multivitamin 1 tab PO QDL ##0 11/28/10/06/23 History docusate sodium 100 mg capsule 300 mg PO HS #0 caps 01/19/17 10/06/23 History magnesium 250 mg tablet 250 mg PO QDL ##0 01/19/17 10/06/23 History fluticasone propionate 50 2 sprays intranasal DAILY PRN 01/10/19 10/06/23 History mcg/actuation nasal Nasal Congestion spray,suspension lutein 20 mg capsule 20 mg PO QDL 01/10/19 10/06/23 History thiamine HCl (vitamin B1) 100 mg 100 mg PO QDL 01/10/19 10/06/23 History tablet aspirin 81 mg tablet,delayed 81 mg PO QAM 11/10/19 10/06/23 History release cholecalciferol (vitamin D3) 50 50 mcg PO DAILY 07/31/20 10/06/23 History mcg (2,000 unit) capsule acetone (urine) test (Ketone Urine #50 ea 08/05/21 09/08/23 Rx Test strips) FreeStyle Anna 2 Sensor (flash #2 ea 11/27/21 09/08/23 Rx glucose sensor) polyethylene glycol 3350 17 17 g PO DAILY 12/01/21 10/06/23 History gram/dose oral powder (Miralax) atorvastatin 40 mg tablet 40 mg PO HS #90 tabs 05/18/22 10/06/23 Rx levothyroxine 25 mcg tablet 25 mcg PO QAM #90 tabs 05/18/22 10/06/23 Rx azelastine 137 mcg (0.1 %) nasal 1 spray intranasal BID #90 mL 08/20/22 10/06/23 Rx spray aerosol folic acid 1 mg tablet 1 mg PO DAILY 12/02/22 10/06/23 History insulin glargine U-300 conc 300 25 unit subcut DAILY 01/15/23 10/06/23 History unit/mL (1.5 mL) subcutaneous pen (Toumichaelo SoloStar U-300 Insulin) torsemide 20 mg tablet 20 mg PO QAM #90 tabs 02/04/23 10/06/23 Rx finasteride 5 mg tablet 5 mg PO DAILY #90 tabs 03/04/23 10/06/23 Rx warfarin 5 mg tablet See Rx Instructions PO .COMPLEX 04/02/23 10/06/23 Rx #90 tabs metoprolol tartrate 25 mg tablet 25 mg PO BID #180 tabs 06/21/23 10/06/23 Rx nitroglycerin 0.4 mg sublingual 0.4 mg sublingual UD PRN Chest 06/21/23 10/06/23 Rx tablet (Nitrostat) Pain #100 tabs glucagon HCl 1 mg solution for 1 mg subcut Q20M PRN hypoglycemia 06/28/23 10/06/23 Rx injection (Glucagon (HCl) #1 ea Emergency Kit) isosorbide mononitrate 30 mg 30 mg PO DAILY #90 tabs 07/16/23 10/06/23 Rx tablet,extended release 24 hr doxazosin 2 mg tablet 2 mg PO DAILY 09/08/23 10/06/23 History pen needle, diabetic 31 gauge x #200 ea 09/08/23 09/08/23 Rx 06/10" (Comfort EZ Pen [place]) insulin lispro 100 unit/mL See Rx Instructions subcut TID #95 09/28/23 10/06/23 Rx subcutaneous pen (Humalog KwikPen mL (U-100) Insulin) Patient History Medical History Aortic stenosis Urinary retention Paroxysmal atrial fibrillation History of CVA (cerebrovascular accident) Type 1 diabetes mellitus with complications Alcohol abuse Vitamin D deficiency Proteinuria Primary hypercoagulable state Organic hypersomnia Leukopenia Left inguinal hernia Kidney disease, chronic, stage II (mild, 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) Insomnia Hoarseness Factor V Leiden mutation Dysphagia, oropharyngeal phase Complex sleep apnea syndrome CAD (coronary artery disease) Ascending aorta dilation Anticoagulant long-term use Anti-cardiolipin antibody positive Surgical History S/P CABG x 3 History of surgical removal of ganglion cyst History of hydrocelectomy History of hand surgery S/P coronary artery stent placement H/O hernia repair Hx of appendectomy Family History Mother , in her 60s of heart disease COPD (chronic obstructive pulmonary disease) Coronary heart disease Heart disease CHF Diabetes Hypertension Father , age 62 of melanoma Melanoma Heart disease Hypertension Brother Coronary heart disease Hypertension Myocardial infarction Son Diabetes Denies family history of Ovarian cancer Prostate cancer Breast cancer Lung cancer Colorectal cancer Stroke Social History Smoking Status: Never smoker Second Hand Exposure: Yes (As a child, parents smoked); Do You Dip or Chew Tobacco: No; Tobacco Cessation Education Requested by Patient: No Hx Alcohol Use: No Hx Substance Use: No Preferred Language: Citizen Of [place] Communication Ability: Effective Communication Ability Comment: expressive and receptive aphasia Visual Impairment: No Limitations Hearing Ability: Normal Bulk Clerk Required: No Beliefs That Will Affect Care: None marital status: Current Living Situation: Spouse and Family current occupational status: retired 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 How many Children do You have: 2 Other Information That Helps Us Care for You: No Feels Safe at Home: Yes Safety Concerns: Feels Safe At This Time Childhood Exposure to Second-Hand Smoke: Yes caffeine: Yes Dental Care, Regularly: Yes Physical Activity Frequency: Does not Exercise Seatbelt Use: always Sunscreen Use: Yes Assistive Devices: Cane and Walker Review of Systems Review of Systems: All systems reviewed & are unremarkable except as noted in HPI & below Physical Exam Constitutional: WD/WN, vitals as above cooperative and comfortable; not in distress Neck: trachea midline Respiratory: normal respiratory effort, lungs clear to auscultation Auscultation: + diminished lung sounds Cardiovascular: Rate/Rhythm: + irregularly irregular Vessels: femoral pulses present, posterior tibial pulses present (LLE +1, RLE unable to palpate d/t dressing, but excellent doppler signal) and dorsalis pedis pulses present (LLE +2, RLE unable to palpate dt dressing, but excellent dopppler signal. ); + abnormal peripheral pulses Extremities: normal capillary refill (LLE normal. RLE unable to eval d/t dressing.) RLE peroneal excellent doppler signal Gastrointestinal (Abdomen): Inspection/Auscultation: abdomen normal to inspection and normal bowel sounds Percussion/Palpation: abdomen soft; abdomen nontender Musculoskeletal: no cyanosis or clubbing, extremities motor strength 5/5 Skin: no rashes, warm and dry (RLE foot wound not eval d/t dressing) Neurologic: moves all extremities and awake; no focal motor deficits and not confused Psychiatric: A+Ox3, euthymic affect Results & Data Vital Signs (Past 12 Hours) Vital Signs Temp Pulse Pulse Resp BP BP Pulse Ox 10/08/23 07:24 36.6 C 81 15 149/82 H 97 10/08/23 03:52 37.2 C 82 16 136/53 L 97 10/08/23 03:38 85 20 95 10/08/23 00:00 90 22 93 10/07/23 23:59 36.9 C 92 H 16 161/58 H 94 10/07/23 21:33 161/77 H 10/07/23 21:30 O2 Del Method 10/08/23 07:24 Room Air 10/08/23 03:52 Room Air 10/08/23 03:38 10/08/23 00:00 10/07/23 23:59 Room Air 10/07/23 21:33 10/07/23 21:30 Room Air, Jennifer
[2023-10-08 10:16] LABS: INR 1.7 (0.9-1.1); Prothrombin Time 17.2 Seconds (9.0-12.0)
--- NOTE | 2023-10-08 10:26 | Infectious Disease Consult ---
Date of Consultation October 08, 2023 Assessment & Plan (1) Osteomyelitis of toe of right foot: (2) Diabetic infection of right foot: (3) Infection of great toe: Plan #Staph bacteremia #R toe osteomyelitis s/p I+D Or cx Staph #PCN, sulf, PCN allergy danilo cefepime 82 yo m with hx of a fib on coumadin, DMII, CAD s/p CABG, NSTEMI, HTN, sleep apnea, CKD, neuropathy, CVA, 2 hernia surgeries in past admitted with right foot infection, found to have right toe osteomyelitis, foot cellulitis and now staph bacteremia for which ID was consulted. Patient states he had a callus on his toe and was seen by his recreational counselor about 1 month ago which he shaved off but it began to drain. no prior knowledge of PAD, no personal hx of smoking, not previously on antibiotics. No pain or fevers prior to admission. In the ED, HD stable, CBC normal. Lactate is 1.1. LFTs unremarkable Procalcitonin is not elevated. ESR is mildly elevated 48. CRP 9.5. Plain film of the right great toe demonstrates soft tissue swelling and mild to moderate arthritis with subtle suspected osseous erosion involving the medial and plantar aspects of the distal first phalanx. C/F OM. 10/05 Bcx ordered now growing staph species (BCID result not available). He was started on daptomycin and Cefepime. Right hallux I&D with bone biopsy on 10/06 with Podiatry. OR cultures +Staph species 2DE w/o vegetation Evaluated by vascular no intervention recommended. RECOMMEND -Follow OR and blood speciation -Repeat blood cultures to ensure clearance, I did order for 10/07 but dont see done -C/W Daptomycin, he has on statin right now, order CPK for am - consider holding statin at this point but if he is high risk SC we can continue for now and watch CPKs closely while on Dapto Please page OTW w questions Dr. West to start service on Wednesday Alyse Nunn MD Infectious Diseases [facility] Consultation Information Consultation was provided via telemedicine using two-way real-time interactive telecommunication between the patient and the telemedicine provider. For the duration of the visit, the provider was performing the assessment from a different facility than the patient. This includesuse of bluetooth stethoscope forauscultationperformed by the telepresenter that the telemedicine provider can hear if described in the physical exam. Wet Process Assistant Head Miller contact information: Please call [facility] Call Center . (Phone Number For Physician Use Only) After establishing a telemedicine visit, patient was: Patient was verified with two unique identifiers, Patient/authorized rep acknowledged consent and understanding and Gave permission to continue telehealth session Time Spent with Patient: Initial => 55 min History of Present Illness Reason for Consultation: bacteremia and foot osteo Requesting Physician: Dr. Isabel Attending Physician: Edith Isabel MD History of Present Illness 82 yo m with hx of a fib on coumadin, DMII, CAD s/p CABG, NSTEMI, HTN, sleep apnea, CKD, neuropathy, CVA, 2 hernia surgeries in past admitted with right foot infection, found to have right toe osteomyelitis, foot cellulitis and now staph bacteremia for which ID was consulted. Patient states he had a callus on his toe and was seen by his recreational counselor about 1 month ago which he shaved off but it began to drain. no prior knowledge of PAD, no personal hx of smoking, not previously on antibiotics. No pain or fevers prior to admission. In the ED, HD stable, CBC normal. Lactate is 1.1. LFTs unremarkable Procalcitonin is not elevated. ESR is mildly elevated 48. CRP 9.5. Plain film of the right great toe demonstrates soft tissue swelling and mild to moderate arthritis with subtle suspected osseous erosion involving the medial and plantar aspects of the distal first phalanx. C/F OM. 10/05 Bcx ordered now growing staph species (BCID result not available). He was started on daptomycin and Cefepime. Right hallux I&D with bone biopsy on 10/06 with Podiatry. OR cultures +Staph species 2DE w/o vegetation Evaluated by vascular no intervention recommended. Allergies Allergy/AdvReac Type Severity Reaction Status Date / Time clindamycin Allergy Intermediate Rash Verified 10/07/23 12:57 lisinopril Allergy Intermediate falling Verified 10/07/23 12:57 down ? Penicillins Allergy Intermediate Hives Verified 10/07/23 12:57 Sulfa (Sulfonamide Allergy Intermediate HIVES Verified 10/07/23 12:57 Antibiotics) Home Medications Medication Instructions Recorded Confirmed Type multivitamin 1 tab PO QDL ##0 11/28/10/06/23 History docusate sodium 100 mg capsule 300 mg PO HS #0 caps 01/19/17 10/06/23 History magnesium 250 mg tablet 250 mg PO QDL ##0 01/19/17 10/06/23 History fluticasone propionate 50 2 sprays intranasal DAILY PRN 01/10/19 10/06/23 History mcg/actuation nasal Nasal Congestion spray,suspension lutein 20 mg capsule 20 mg PO QDL 01/10/19 10/06/23 History thiamine HCl (vitamin B1) 100 mg 100 mg PO QDL 01/10/19 10/06/23 History tablet aspirin 81 mg tablet,delayed 81 mg PO QAM 11/10/19 10/06/23 History release cholecalciferol (vitamin D3) 50 50 mcg PO DAILY 07/31/20 10/06/23 History mcg (2,000 unit) capsule acetone (urine) test (Ketone Urine #50 ea 08/05/21 09/08/23 Rx Test strips) FreeStyle Anna 2 Sensor (flash #2 ea 11/27/21 09/08/23 Rx glucose sensor) polyethylene glycol 3350 17 17 g PO DAILY 12/01/21 10/06/23 History gram/dose oral powder (Miralax) atorvastatin 40 mg tablet 40 mg PO HS #90 tabs 05/18/22 10/06/23 Rx levothyroxine 25 mcg tablet 25 mcg PO QAM #90 tabs 05/18/22 10/06/23 Rx azelastine 137 mcg (0.1 %) nasal 1 spray intranasal BID #90 mL 08/20/22 10/06/23 Rx spray aerosol folic acid 1 mg tablet 1 mg PO DAILY 12/02/22 10/06/23 History insulin glargine U-300 conc 300 25 unit subcut DAILY 01/15/23 10/06/23 History unit/mL (1.5 mL) subcutaneous pen (Toumichaelo SoloStar U-300 Insulin) torsemide 20 mg tablet 20 mg PO QAM #90 tabs 02/04/23 10/06/23 Rx finasteride 5 mg tablet 5 mg PO DAILY #90 tabs 03/04/23 10/06/23 Rx warfarin 5 mg tablet See Rx Instructions PO .COMPLEX 04/02/23 10/06/23 Rx #90 tabs metoprolol tartrate 25 mg tablet 25 mg PO BID #180 tabs 06/21/23 10/06/23 Rx nitroglycerin 0.4 mg sublingual 0.4 mg sublingual UD PRN Chest 06/21/23 10/06/23 Rx tablet (Nitrostat) Pain #100 tabs glucagon HCl 1 mg solution for 1 mg subcut Q20M PRN hypoglycemia 06/28/23 10/06/23 Rx injection (Glucagon (HCl) #1 ea Emergency Kit) isosorbide mononitrate 30 mg 30 mg PO DAILY #90 tabs 07/16/23 10/06/23 Rx tablet,extended release 24 hr doxazosin 2 mg tablet 2 mg PO DAILY 09/08/23 10/06/23 History pen needle, diabetic 31 gauge x #200 ea 09/08/23 09/08/23 Rx 1/4" (Comfort EZ Pen [place]) insulin lispro 100 unit/mL See Rx Instructions subcut TID #95 09/28/23 10/06/23 Rx subcutaneous pen (Humalog KwikPen mL (U-100) Insulin) Patient History Medical History Aortic stenosis Urinary retention Paroxysmal atrial fibrillation History of CVA (cerebrovascular accident) Type 1 diabetes mellitus with complications Alcohol abuse Vitamin D deficiency Proteinuria Primary hypercoagulable state Organic hypersomnia Leukopenia Left inguinal hernia Kidney disease, chronic, stage II (mild, 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) Insomnia Hoarseness Factor V Leiden mutation Dysphagia, oropharyngeal phase Complex sleep apnea syndrome CAD (coronary artery disease) Ascending aorta dilation Anticoagulant long-term use Anti-cardiolipin antibody positive Surgical History S/P CABG x 3 History of surgical removal of ganglion cyst History of hydrocelectomy History of hand surgery S/P coronary artery stent placement H/O hernia repair Hx of appendectomy Family History Mother , in her 60s of heart disease COPD (chronic obstructive pulmonary disease) Coronary heart disease Heart disease CHF Diabetes Hypertension Father , age 62 of melanoma Melanoma Heart disease Hypertension Brother Coronary heart disease Hypertension Myocardial infarction Son Diabetes Denies family history of Ovarian cancer Prostate cancer Breast cancer Lung cancer Colorectal cancer Stroke Social History Smoking Status: Never smoker Second Hand Exposure: Yes (As a child, parents smoked); Do You Dip or Chew Tobacco: No; Tobacco Cessation Education Requested by Patient: No Hx Alcohol Use: No Hx Substance Use: No Preferred Language: Occitan Communication Ability: Effective Communication Ability Comment: expressive and receptive aphasia Visual Impairment: No Limitations Hearing Ability: Normal Lumber Mover Required: No Beliefs That Will Affect Care: None marital status: Current Living Situation: Spouse and Family current occupational status: retired 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 How many Children do You have: 2 Other Information That Helps Us Care for You: No Feels Safe at Home: Yes Safety Concerns: Feels Safe At This Time Childhood Exposure to Second-Hand Smoke: Yes caffeine: Yes Dental Care, Regularly: Yes Physical Activity Frequency: Does not Exercise Seatbelt Use: always Sunscreen Use: Yes Assistive Devices: Cane and Walker Physical Exam Physical Exam: Foot wrapped NAD CTAB RRR S1 S2 Soft NG NTD Results & Data Vital Signs (Past 12 Hours) Vital Signs Temp Pulse Pulse Resp BP BP Pulse Ox 10/08/23 07:24 36.6 C 81 15 149/82 H 97 10/08/23 03:52 37.2 C 82 16 136/53 L 97 10/08/23 03:38 85 20 95 10/08/23 00:00 90 22 93 10/07/23 23:59 36.9 C 92 H 16 161/58 H 94 O2 Del Method 10/08/23 07:24 Room Air 10/08/23 03:52 Room Air 10/08/23 03:38 10/08/23 00:00 10/07/23 23:59 Room Air Medications Administered Current Inpatient Medications Acetaminophen (Acetaminophen 325 Mg Tab) 650 mg PO Q6H PRN PRN Reason: Pain & Pre PT Stop: 11/06/23 06:05 Aspirin (Aspirin 81 Mg Ectab) 81 mg PO QAM PENNY Stop: 11/06/23 08:59 Last Admin: 10/08/23 07:51 Dose: 81 mg Atorvastatin Calcium (Atorvastatin 40 Mg Tab) 40 mg PO HS PENNY Stop: 11/05/23 20:59 Last Admin: 10/07/23 21:35 Dose: 40 mg Azelastine HCl (Azelastine Hcl 0.1% Nasal 200 Sprays/27,400 Mcg Btl) 1 sprays CASSANDRA BID PENNY Stop: 11/05/23 20:59 Last Admin: 10/08/23 07:49 Dose: 1 sprays Dextrose (Dextrose 50% 50 Ml Syringe) 25 - 50 ml IV UD PRN; Protocol PRN Reason: Hypoglycemia Protocol Stop: 11/05/23 16:52 Docusate Sodium (Docusate Sodium 100 Mg Cap) 300 mg PO HS PENNY Stop: 11/05/23 20:59 Last Admin: 10/07/23 21:35 Dose: 300 mg Doxazosin Mesylate (Doxazosin Mesylate Tab 2 Mg Tab) 2 mg PO DAILY PENNY Stop: 11/06/23 08:59 Last Admin: 10/08/23 07:49 Dose: 2 mg Finasteride (Finasteride 5 Mg Tab) 5 mg PO DAILY PENNY Stop: 11/06/23 08:59 Last Admin: 10/08/23 07:50 Dose: 5 mg Folic Acid (Folic Acid 1 Mg Tab) 1 mg PO DAILY PENNY Stop: 11/06/23 08:59 Last Admin: 10/08/23 07:51 Dose: 1 mg Glucagon (Glucagon For Inj 1 Mg Vial) 1 mg SQ UD PRN; Protocol PRN Reason: Hypoglycemia Protocol Stop: 11/05/23 16:52 Glucose (Glucose 40% Gel 15 Gm Tube) 15 - 30 gm PO UD PRN; Protocol PRN Reason: Hypoglycemia Protocol Stop: 11/05/23 16:52 Glucose (Glucose 10 Tab/Tube) 4 - 8 tab PO UD PRN; Protocol PRN Reason: Hypoglycemia Treatment Stop: 11/05/23 16:52 Cefepime HCl 2,000 mg/ Syringe 20 mls @ 5 mls/min IV Q12H PENNY; Protocol Stop: 11/18/23 00:29 Last Admin: 10/07/23 23:49 Dose: 5 mls/min Daptomycin 300 mg/ Syringe 6 mls @ 3 mls/min IV Q24H PENNY; Protocol Stop: 11/18/23 12:59 Last Admin: 10/07/23 12:39 Dose: 3 mls/min Insulin Aspart (Insulin Aspart Per Unit Charge) 0 units SC ACHS PENNY; Protocol Stop: 11/06/23 11:59 Last Admin: 10/08/23 08:27 Dose: 5 units Insulin Glargine (Lantus Per Unit Charge) 0 units SQ HS [facility]; Protocol Stop: 11/06/23 20:59 Last Admin: 10/07/23 21:32 Dose: 10 units Isosorbide Mononitrate (Isosorbide Mercer Extended Rel 30 Mg Tabcr) 30 mg PO DAILY [facility] Stop: 11/06/23 08:59 Last Admin: 10/08/23 07:51 Dose: 30 mg Levothyroxine Sodium (Levothyroxine Sodium 25 Mcg Tablet) 25 mcg PO DAILYBB [facility] Stop: 11/06/23 06:29 Last Admin: 10/08/23 05:53 Dose: 25 mcg Magnesium Oxide (Magnesium Oxide 400 Mg Tab) 400 mg PO QDL [facility] Stop: 11/06/23 11:29 Last Admin: 10/07/23 11:51 Dose: 400 mg Metoprolol Tartrate (Metoprolol Tartrate 25 Mg Tab) 25 mg PO BID [facility] Stop: 11/05/23 20:59 Last Admin: 10/08/23 07:49 Dose: 25 mg Miscellaneous (Carbohydrates For Hypoglycemia ) 15 - 30 gm PO UD PRN PRN Reason: Hypoglycemia Protocol Stop: 11/05/23 16:52 Miscellaneous Information (Pharmacy Glycemic Mgmt Consult) 1 each N/A UD PRN PRN Reason: Consult Stop: 11/05/23 16:52 Multivitamins (Multivitamin Tab) 1 tab PO QDL [facility] Stop: 11/06/23 11:29 Last Admin: 10/07/23 11:51 Dose: 1 tab Oxycodone HCl (Oxycodone Hcl Ir 5 Mg Tab (Immediate Release)) 5 mg PO Q4H PRN PRN Reason: MODERATE Pain (4,5,6) & Pre PT Stop: 10/21/23 06:05 Oxycodone HCl (Oxycodone Hcl Ir 5 Mg Tab (Immediate Release)) 10 mg PO Q4H PRN PRN Reason: SEVERE Pain (7,8,9,10) Stop: 10/21/23 06:05 Polyethylene Glycol (Polyethylene (Miralax) 17 Gm Pack) 17 gm PO DAILY [facility] Stop: 11/06/23 08:59 Last Admin: 10/08/23 07:52 Dose: Not Given Thiamine HCl (Thiamine Hcl 100 Mg Tab) 100 mg PO QDL [facility] Stop: 11/06/23 11:29 Last Admin: 10/07/23 11:51 Dose: 100 mg Torsemide (Torsemide 20 Mg Tab) 20 mg PO QAM [facility] Stop: 11/06/23 08:59 Vitamin D (Cholecalciferol 25 Mcg (1000 Units) Tab) 50 mcg PO DAILY PENNY Stop: 11/06/23 08:59 Last Admin: 10/08/23 07:50 Dose: 50 mcg
--- NOTE | 2023-10-08 12:36 | Podiatry Progress Note ---
Date of Service October 08, 2023 Assessment & Plan (1) Diabetic infection of right foot: (2) Infection of great toe: (3) Osteomyelitis of toe of right foot: (4) Diabetic foot ulcer: Plan - Pt seen at bedside, doing well. - Has no current pain, only mild discomfort with walking/WB - Would benefit from wound care input since he would like to attempt limb salvage. - Will require 6-8 weeks IV abx most likely; cultures still pending. - Once IV abx plan established, can likely d/c home when stable per medicine and home abx are setup Admission and Anticipated Discharge Date Admission Date: October 06, 2023 Subjective Patient seen at bedside, one day status post right hallux I&D with bone biopsy. He is doing well with no new concerns at this time. He does state that he would like to attempt Limb salvage for this great toe ulceration. He does deny any new systemic signs of infection. He also denies any recent medical history change. Review of Systems Constitutional: no fever, no chills and no fatigue Eyes: no problem reported Ear, Nose, Mouth, Throat: no problem reported Respiratory: no problem reported Cardiovascular: + edema; no problem reported Gastrointestinal: no nausea, no vomiting and no problem reported Musculoskeletal: no problem reported Integumentary: + skin ulcer, + wounds and + erythema Neurologic: + loss of sensation, + numbness and + pa resthesia; no generalized weakness Psychiatric: no problem reported Physical Exam Physical Exam: Lower extremity exam: DP/PT pulses nonpalpable. CFT brisk to digits. Right hallux ulcerated with underlying abscess. Ascending cellulitis to the level of the ankle. Edema noted to b/l LE. Pain on palpation of toe wit otherwise insensate foot. Advanced atrophic changes to b/l LE. Ulceration unstageable at this time. Constitutional: WD/WN, vitals as above + ill appearing and + obese Eyes: PERRL, conjunctivae normal, anicteric sclerae ENMT: external ear and nose normal, oropharynx normal Neck: trachea midline, no thyromegaly normal visual inspection Respiratory: normal respiratory effort; no respiratory distress Cardiovascular: Rate/Rhythm: regular rate and regular rhythm Chest (Breasts): Chest: normal inspection of chest Gastrointestinal (Abdomen): Inspection/Auscultation: abdomen normal to inspection Percussion/Palpation: + abdomen tender and abdomen soft Musculoskeletal: no cyanosis or clubbing, extremities motor strength 5/5 Head/Neck/Chest: normocephalic and head atraumatic Extremities: extremities normal to inspection Skin: + ulcer, + wound, + dry skin, + erythema and + fluctulance Neurologic: awake; no focal motor deficits Psychiatric: A+Ox3, euthymic affect Results & Data Results & Data Vital Signs (Past 12 Hours) Vital Signs Temp Pulse Pulse Resp BP BP Pulse Ox 10/08/23 07:24 36.6 C 81 15 149/82 H 97 10/08/23 03:52 37.2 C 82 16 136/53 L 97 10/08/23 03:38 85 20 95 O2 Del Method 10/08/23 07:24 Room Air 10/08/23 03:52 Room Air 10/08/23 03:38 (4) Diabetic foot ulcer Diabetes mellitus type: type 1 Diabetic foot ulcer location: midfoot Laterality: right Non-pressure ulcer stage: unspecified non-pressure ulcer stage Qualified Code(s): E10.621 - Type 1 diabetes mellitus with foot ulcer; L97.419 - Non-pressure chronic ulcer of right heel and midfoot with unspecified severity
--- NOTE | 2023-10-08 16:07 | Hospitalist Progress Note ---
Date of Service October 08, 2023 Assessment & Plan (1) Osteomyelitis of toe of right foot: Plan: Right foot first toe ulcer with osteomyelitis With associated cellulitis Cefepime + daptomycin Follow up blood cultures Podiatry did an right hallux I&D and took bone biopsies on 10/06 Vascular surgery on board, recommended no intervention at this time Infectious disease on board Surgical wound cultures growing staph (2) Diabetic foot ulcer: Plan: Vascular did not recommend any intervention at this time (3) Murmur: Plan: TTE reviewed (4) Paroxysmal atrial fibrillation: Plan: s/p left atrial appendage clip and partial Maze procedure during CABG in December 2022 Currently in NSR (5) S/P CABG x 3: Plan: December 2022 Continue aspirin, ISMN, metoprolol Atorvastatin on hold with daptomycin (6) Complex sleep apnea syndrome: Plan: BiPAP 17/11 HS, may use own BiPAP (7) Diabetes type 1, uncontrolled: Plan: Hemoglobin A1C 7.8 in September, no need to repeat Reduce Lantus dosing to 25 -> 15 units HS Novolog: --Goal BSG Range: Low 110 mg/dL, High 140 mg/dL --Correction Factor: 7 mg/dL/unit --Carbohydrate ratio = 25 g/unit --BSGs ACHS if eating, q6h if npo Consult pharmacy for ongoing management in setting of T1DM (8) Hypothyroidism: Plan: TSH 3.474 in 01/2023 Continue levothyroxine (9) Hypertension: Plan: Continue metoprolol, ISMN and torsemide (hold torsemide pre-operatively) (10) Anticoagulant long-term use: Plan: 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 daily starting today (11) Cellulitis: Plan VTE prophylaxis - INR 1.9 on admission, 1.3 today Diet - T2DM after OR Admission and Anticipated Discharge Date Admission Date: October 06, 2023 Subjective Patient feels well. Denies chest pain or shortness of breath. Review of Systems Review of Systems: All systems reviewed & are unremarkable except as noted in Subjective Physical Exam Physical Exam: General: Awake, conversant Heart: S1, S2/regular rate and rhythm, no murmur rubs or gallops Lungs: Clear to auscultation bilaterally. Normal effort Abdomen: Soft/nontender/nondistended. No hepatosplenomegaly Extremities: No clubbing/cyanosis. No edema. Right foot dressing on. Behavior: Appropriate, cooperative Results & Data Results & Data Vital Signs (Past 12 Hours) Vital Signs Temp Pulse Resp BP Pulse Ox O2 Del Method 10/08/23 15:13 36.8 C 76 16 125/55 L 97 Room Air 10/08/23 07:24 36.6 C 81 15 149/82 H 97 Room Air Laboratory Results Abnormal lab results 10/07/23 10/07/23 10/08/23 Range/Units 16:44 20:28 09:56 PT 17.2 H (9.0-12.0) Seconds INR 1.7 H (0.9-1.1) POC Glucose 157 H 152 H (70-99) mg/dl 10/08/23 Range/Units 11:46 PT (9.0-12.0) Seconds INR (0.9-1.1) POC Glucose 126 H (70-99) mg/dl PG Care Time/CCT Total # of Minutes Spent Total Time Spent with Patient: Total time spent is greater than 50% in coordination of care (as documented) at patient's floor/unit and/or counseling patient: Coding Level of Care Code 93219 SUB INP/OBS CARE 2/35MIN Diagnoses Osteomyelitis of toe of right foot M86.9 Diabetic foot ulcer E10.621; L97.419 Diabetes mellitus type: type 1 Diabetic foot ulcer location: midfoot Laterality: right Non-pressure ulcer stage: unspecified non-pressure ulcer stage Murmur R01.1 Paroxysmal atrial fibrillation I48.0 S/P CABG x 3 Z95.1 Complex sleep apnea syndrome G47.31 Diabetes type 1, uncontrolled E10.65 Hypothyroidism E03.9 Hypertension I10 Anticoagulant long-term use Z79.01 Cellulitis L03.90 (2) Diabetic foot ulcer Diabetes mellitus type: type 1 Diabetic foot ulcer location: midfoot Laterality: right Non-pressure ulcer stage: unspecified non-pressure ulcer stage Qualified Code(s): E10.621 - Type 1 diabetes mellitus with foot ulcer; L97.419 - Non-pressure chronic ulcer of right heel and midfoot with unspecified severity
[2023-10-08] MEDS ORDERED: WARFARIN SOD 5 MG TAB PO ONE (16:30)
[2023-10-08] MEDS: WARFARIN SOD 5 MG TAB PO ONE (16:54)
[2023-10-08] MEDS: DAPTOmycin 325 MG in SYRINGE 0 ML IV ONE (16:54)
[2023-10-09 08:02] LABS: INR 1.6 (0.9-1.1); Prothrombin Time 16.6 Seconds (9.0-12.0)
[2023-10-09] MEDS: LANTUS PER UNIT CHARGE SQ ONE (08:53)
--- NOTE | 2023-10-09 12:32 | Hospitalist Progress Note ---
Date of Service October 09, 2023 Assessment & Plan (1) Osteomyelitis of toe of right foot: Plan: Right foot first toe ulcer with osteomyelitis Surgical wound culture growing MRSA Continue with daptomycin per ID recommendations Blood cultures negative Vascular surgery on board, recommended no intervention at this time (2) Diabetic foot ulcer: Plan: Vascular did not recommend any intervention at this time (3) Murmur: Plan: TTE reviewed (4) Paroxysmal atrial fibrillation: Plan: s/p left atrial appendage clip and partial Maze procedure during CABG in December 2022 Currently in NSR (5) S/P CABG x 3: Plan: December 2022 Continue aspirin, ISMN, metoprolol Atorvastatin on hold with daptomycin (6) Complex sleep apnea syndrome: Plan: BiPAP 13/ HS, may use own BiPAP (7) Diabetes type 1, uncontrolled: Plan: Hemoglobin A1C 7.8 in September, no need to repeat Reduce Lantus dosing to 25 -> 15 units HS Novolog: --Goal BSG Range: Low 110 mg/dL, High 140 mg/dL --Correction Factor: 7 mg/dL/unit --Carbohydrate ratio = 25 g/unit --BSGs ACHS if eating, q6h if npo Consult pharmacy for ongoing management in setting of T1DM (8) Hypothyroidism: Plan: TSH 3.474 in 01/2023 Continue levothyroxine (9) Hypertension: Plan: Continue metoprolol, ISMN and torsemide (hold torsemide pre-operatively) (10) Anticoagulant long-term use: Plan: 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 daily 10/07 INR 1.6 today 10/08 (11) Cellulitis: Plan VTE prophylaxis - INR 1.9 on admission, 1.3 today Diet - T2DM after OR Admission and Anticipated Discharge Date Admission Date: October 06, 2023 Subjective Patient feels well overall. Denies chest pain or shortness of breath. Review of Systems Review of Systems: All systems reviewed & are unremarkable except as noted in Subjective Physical Exam Physical Exam: General: Awake, conversant Heart: S1, S2/regular rate and rhythm, no murmur rubs or gallops Lungs: Clear to auscultation bilaterally. Normal effort Abdomen: Soft/nontender/nondistended. No hepatosplenomegaly Extremities: No clubbing/cyanosis. No edema. Right foot dressing on. Behavior: Appropriate, cooperative Results & Data Results & Data Vital Signs (Past 12 Hours) Vital Signs Temp Pulse Pulse Resp BP Pulse Ox O2 Del Method 10/09/23 07:22 36.9 C 74 18 162/79 H 97 Room Air 10/09/23 02:11 80 15 94 Laboratory Results Abnormal lab results 10/08/23 10/09/23 10/09/23 Range/Units 20:18 06:53 07:46 PT 16.6 H (9.0-12.0) Seconds INR 1.6 H (0.9-1.1) POC Glucose 228 H 191 H (70-99) mg/dl 10/09/23 Range/Units 11:36 PT (9.0-12.0) Seconds INR (0.9-1.1) POC Glucose 280 H (70-99) mg/dl PG Care Time/CCT Total # of Minutes Spent Total Time Spent with Patient: Total time spent is greater than 50% in coordination of care (as documented) at patient's floor/unit and/or counseling patient: Coding Level of Care Code 62758 SUB INP/OBS CARE 235MIN Diagnoses Osteomyelitis of toe of right foot M86.9 Diabetic foot ulcer E10.621; L97.419 Diabetes mellitus type: type 1 Diabetic foot ulcer location: midfoot Laterality: right Non-pressure ulcer stage: unspecified non-pressure ulcer stage Murmur R01.1 Paroxysmal atrial fibrillation I48.0 S/P CABG x 3 Z95.1 Complex sleep apnea syndrome G47.31 Diabetes type 1, uncontrolled E10.65 Hypothyroidism E03.9 Hypertension I10 Anticoagulant long-term use Z79.01 Cellulitis L03.90 (2) Diabetic foot ulcer Diabetes mellitus type: type 1 Diabetic foot ulcer location: midfoot Laterality: right Non-pressure ulcer stage: unspecified non-pressure ulcer stage Qualified Code(s): E10.621 - Type 1 diabetes mellitus with foot ulcer; L97.419 - Non-pressure chronic ulcer of right heel and midfoot with unspecified severity
[2023-10-09] MEDS: DAPTOmycin 625 MG in SYRINGE 0 ML IV SCH (13:02)
[2023-10-09] MEDS: WARFARIN SOD 5 MG TAB PO SCH (16:37)
[2023-10-09] MEDS: INSULIN ASPART PER UNIT CHARGE SC SCH (17:19)
[2023-10-09] MEDS: CARBOHYDRATES FOR HYPOGLYCEMIA PO PRN (20:16)
[2023-10-10 06:31] LABS: INR 1.7 (0.9-1.1); Prothrombin Time 17.8 Seconds (9.0-12.0)
[2023-10-10] MEDS: LANTUS PER UNIT CHARGE SQ ONE (08:56)
[2023-10-10] MEDS: INSULIN ASPART PER UNIT CHARGE SC SCH (08:56)
--- NOTE | 2023-10-10 14:59 | Hospitalist Progress Note ---
Date of Service October 10, 2023 Assessment & Plan (1) Osteomyelitis of toe of right foot: Plan: Right foot first toe ulcer with osteomyelitis Surgical wound culture growing MRSA Continue with daptomycin per ID recommendations Blood cultures negative Patient will most likely need weeks of IV antibiotics. Vascular surgery on board, recommended no intervention at this time (2) Diabetic foot ulcer: Plan: Vascular did not recommend any intervention at this time (3) Murmur: Plan: TTE reviewed (4) Paroxysmal atrial fibrillation: Plan: s/p left atrial appendage clip and partial Maze procedure during CABG in December 2022 Currently in NSR (5) S/P CABG x 3: Plan: December 2022 Continue aspirin, ISMN, metoprolol Atorvastatin on hold with daptomycin (6) Complex sleep apnea syndrome: Plan: BiPAP / HS, may use own BiPAP (7) Diabetes type 1, uncontrolled: Plan: Hemoglobin A1C 7.8 in September, no need to repeat Reduce Lantus dosing to 25 -> 15 units HS Novolog: --Goal BSG Range: Low 110 mg/dL, High 140 mg/dL --Correction Factor: 7 mg/dL/unit --Carbohydrate ratio = 25 g/unit --BSGs ACHS if eating, q6h if npo Consult pharmacy for ongoing management in setting of T1DM (8) Hypothyroidism: Plan: TSH 3.474 in 01/2023 Continue levothyroxine (9) Hypertension: Plan: Continue metoprolol, ISMN and torsemide (hold torsemide pre-operatively) (10) Anticoagulant long-term use: Plan: 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 daily 10/07 INR 1.7 today 10/09 Bridge with therapeutic Lovenox (11) Cellulitis: Plan VTE prophylaxis -on Coumadin, added Lovenox to bridge since INR subtherapeutic Diet - T2DM after OR Admission and Anticipated Discharge Date Admission Date: October 06, 2023 Subjective Patient feels well. Denies chest pain or shortness of breath Review of Systems Review of Systems: All systems reviewed & are unremarkable except as noted in Subjective Physical Exam Physical Exam: General: Awake, conversant Heart: S1, S2/regular rate and rhythm, no murmur rubs or gallops Lungs: Clear to auscultation bilaterally. Normal effort Abdomen: Soft/nontender/nondistended. No hepatosplenomegaly Extremities: No clubbing/cyanosis. No edema. Wound VAC on the right foot Behavior: Appropriate, cooperative Results & Data Results & Data Vital Signs (Past 12 Hours) Vital Signs Temp Pulse Pulse Resp BP Pulse Ox O2 Del Method 10/10/23 14:46 36.3 C L 72 17 167/73 H 97 Room Air 10/10/23 10:08 136/67 10/10/23 07:02 36.4 C L 83 16 180/82 H 97 Room Air 10/10/23 04:09 78 19 95 PG Care Time/CCT Total # of Minutes Spent Total Time Spent with Patient: Total time spent is greater than 50% in coordination of care (as documented) at patient's floor/unit and/or counseling patient: Coding Level of Care Code 92376 SUB INP/OBS CARE 2/35MIN Diagnoses Osteomyelitis of toe of right foot M86.9 Diabetic foot ulcer E10.621; L97.419 Diabetes mellitus type: type 1 Diabetic foot ulcer location: midfoot Laterality: right Non-pressure ulcer stage: unspecified non-pressure ulcer stage Murmur R01.1 Paroxysmal atrial fibrillation I48.0 S/P CABG x 3 Z95.1 Complex sleep apnea syndrome G47.31 Diabetes type 1, uncontrolled E10.65 Hypothyroidism E03.9 Hypertension I10 Anticoagulant long-term use Z79.01 Cellulitis L03.90 (2) Diabetic foot ulcer Diabetes mellitus type: type 1 Diabetic foot ulcer location: midfoot Laterality: right Non-pressure ulcer stage: unspecified non-pressure ulcer stage Qualified Code(s): E10.621 - Type 1 diabetes mellitus with foot ulcer; L97.419 - Non-pressure chronic ulcer of right heel and midfoot with unspecified severity
[2023-10-10] MEDS: ENOXAPARIN 80 MG/0.8 ML SYR SC SCH (15:51)
--- NOTE | 2023-10-10 18:55 | Electrocardiogram Report ---
Test Reason : Blood Pressure : / mmHG Vent. Rate : 091 BPM Atrial Rate : 091 BPM P-R Int : 222 ms QRS Dur : 088 ms QT Int : 344 ms P-R-T Axes : 051 002 121 degrees QTc Int : 423 ms Sinus rhythm with 1st degree A-V block Septal infarct , age undetermined Abnormal ECG When compared with ECG of 04-DEC-2022 12:18, Vent. rate has increased BY 30 BPM Septal infarct is now Present ST now depressed in Lateral leads T wave inversion now evident in Lateral leads Confirmed by David Rodriguez ([id number]) on 10/10/2023 6:55:33 PM Referred By: Confirmed By:David Rodriguez
[2023-10-11 07:30] LABS: INR 2.3 (0.9-1.1); Prothrombin Time 22.9 Seconds (9.0-12.0)
[2023-10-11 07:49] LABS: Est GFR (African American) 49.9 ml/min; Est GFR (Non-African American) 43.1 ml/min
--- NOTE | 2023-10-11 11:45 | Infectious Disease Progress Nt ---
Date of Service October 11, 2023 Assessment & Plan (1) Osteomyelitis of toe of right foot: (2) Diabetic infection of right foot: (3) Infection of great toe: Plan 82 yo m with hx of a fib on coumadin, DMII, CAD s/p CABG, NSTEMI, HTN, sleep apnea, CKD, neuropathy, CVA, 2 hernia surgeries in past admitted with right foot infection, found to have right toe osteomyelitis, foot cellulitis and now staph bacteremia for which ID was consulted. Patient states he had a callus on his toe and was seen by his food and nutrition teacher about 1 month ago which he shaved off but it began to drain. no prior knowledge of PAD, no personal hx of smoking, not previously on antibiotics. No pain or fevers mahin or to admission. In the ED, HD stable, CBC normal. Lactate is 1.1. LFTs unremarkable Procalcitonin is not elevated. ESR is mildly elevated 48. CRP 9.5. Plain film of the right great toe demonstrates soft tissue swelling and mild to moderate arthritis with subtle suspected osseous erosion involving the medial and plantar aspects of the distal first phalanx. C/F OM. He was started on daptomycin and Cefepime. Right hallux I&D with bone biopsy on 10/06 with Podiatry. OR cultures +MRSA and corynebacterium sp 2DE w/o vegetation Evaluated by vascular no intervention recommended. Micro: Blood cultures 10/06/2023 no growth to date Right hallux soft tissue wound culture 10/07/2023 MRSA and corynebacterium species Right hallux bone wound culture 10/07/2023 MRSA and corynebacterium species Abx: Cefepime 10/05 Daptomycin 10/05ongoing #MRSA and Corynebacterium R toe osteomyelitis s/p I&D with bone biopsy10/06 #PCN, sulf, PCN allergy danilo cefepime RECOMMEND He would like to attempt limb salvage. Will treat osteomyelitis with medical management with Iv abx. -C/W Daptomycin 8 mg /kg iv daily (660 mg iv daily cr cl > 30), He is on statin at this time. CPK is 74, consider holding statin at this point but if he is high risk [place] we can continue statin for now and watch CPKs closely while on Dapto Anticipate at least 6 weeks of IV abx as no surgical cure attempted with EOT of 11/18/2023 ( 6 weeks from bone biopsy/I and D) -Weekly cbc with dif, bmp, lft, CPK, es, crp on therapy -Follow up with podiatry outpatient. D/W team Jael West MD, MPH Infectious Disease [facility] Call [phone] with questions Admission and Anticipated Discharge Date Admission Date: October 06, 2023 Subjective This patient recommendation is based on a telemedicine consult request which was completed asynchronously through chart review and information provided by the primary physician. The patient was not seen or examined today. The evaluation is consultative in nature and all patient care and treatment decisions can either be accepted or rejected by the patient's primary hospital-based treating physician using their own independent medical judgment for their patient. Time Spent Reviewing Chart: 21 - 30 minutes Afebrile Cr 1.49 bone cx + MRSA , corynebacterium Results & Data Vital Signs (Past 12 Hours) Vital Signs Temp Pulse Pulse Resp BP Pulse Ox O2 Del Method 10/11/23 07:42 36.8 C 71 16 163/74 H 96 Room Air 10/11/23 03:02 79 17 94 10/10/23 23:50 75 18 96 Laboratory Results Laboratory Results - last 48 hr 10/09/23 10/09/23 10/09/23 16:34 20:13 20:15 PT INR Creatinine Est Cr Clr Drug Dosing Est GFR ( Amer) Est GFR (Non-Af Amer) POC Glucose 87 62 L* 60 L* 10/09/23 10/09/23 10/09/23 20:32 20:54 22:29 PT INR Creatinine Est Cr Clr Drug Dosing Est GFR ( Amer) Est GFR (Non-Af Amer) POC Glucose 68 L* 92 148 H 10/10/23 10/10/23 10/10/23 05:57 07:48 11:35 PT 17.8 H INR 1.7 H Creatinine Est Cr Clr Drug Dosing Est GFR ( Amer) Est GFR (Non-Af Amer) POC Glucose 256 H 266 H 10/10/23 10/10/23 10/11/23 16:49 19:50 06:46 PT 22.9 H INR 2.3 H Creatinine 1.49 H Est Cr Clr Drug Dosing 42.0 Est GFR ( Amer) 49.9 Est GFR (Non-Af Amer) 43.1 POC Glucose 98 112 H 10/11/23 08:06 PT INR Creatinine Est Cr Clr Drug Dosing Est GFR ( Amer) Est GFR (Non-Af Amer) POC Glucose 179 H Microbiology 10/07/23 13:47 Tissue,Undefined Gram Stain - Final 10/07/23 13:47 Tissue,Undefined Aerobic and Anaerobic Culture - Preliminary Staph aureus MRSA Corynebacterium species 10/07/23 13:47 Tissue,Undefined Gram Stain - Final 10/07/23 13:47 Tissue,Undefined Aerobic and Anaerobic Culture - Preliminary Staph aureus MRSA Corynebacterium species 10/06/23 11:51 Blood Aerobic Blood Culture - Preliminary No growth in Aerobic bottle after 48 hours. 10/06/23 11:51 Blood Anaerobic Blood Culture - Preliminary No growth in Anaerobic bottle after 48 hours. 10/06/23 09:30 Blood Aerobic Blood Culture - Preliminary No growth in Aerobic bottle after 48 hours. 10/06/23 09:30 Blood Anaerobic Blood Culture - Preliminary No growth in Anaerobic bottle after 48 hours. Medications Administered Home Medications Medication Instructions Recorded Confirmed Last Taken multivitamin 1 tab PO QDL ##0 11/28/08 10/06/23 11/27/19 docusate sodium 100 mg capsule 300 mg PO HS #0 caps 01/19/17 10/06/23 11/27/19 magnesium 250 mg tablet 250 mg PO QDL ##0 01/19/17 10/06/23 11/27/19 fluticasone propionate 50 2 sprays intranasal DAILY PRN 01/10/19 10/06/23 11/27/19 mcg/actuation nasal Nasal Congestion spray,suspension lutein 20 mg capsule 20 mg PO QDL 01/10/19 10/06/23 11/27/19 thiamine HCl (vitamin B1) 100 mg 100 mg PO QDL 01/10/19 10/06/23 11/27/19 tablet aspirin 81 mg tablet,delayed 81 mg PO QAM 11/10/19 10/06/23 11/28/19 release cholecalciferol (vitamin D3) 50 50 mcg PO DAILY 07/31/20 10/06/23 Unknown mcg (2,000 unit) capsule acetone (urine) test (Ketone Urine #50 ea 08/05/21 09/08/23 Unknown Test strips) FreeStyle Anna 2 Sensor (flash #2 ea 11/27/21 09/08/23 Unknown glucose sensor) polyethylene glycol 3350 17 17 g PO DAILY 12/01/21 10/06/23 Unknown gram/dose oral powder (Miralax) atorvastatin 40 mg tablet 40 mg PO HS #90 tabs 05/18/22 10/06/23 Unknown levothyroxine 25 mcg tablet 25 mcg PO QAM #90 tabs 05/18/22 10/06/23 Unknown azelastine 137 mcg (0.1 %) nasal 1 spray intranasal BID #90 mL 08/20/22 10/06/23 Unknown spray aerosol folic acid 1 mg tablet 1 mg PO DAILY 12/02/22 10/06/23 Unknown insulin glargine U-300 conc 300 25 unit subcut DAILY 01/15/23 10/06/23 Unknown unit/mL (1.5 mL) subcutaneous pen (TouHuddlero SoloStar U-300 Insulin) torsemide 20 mg tablet 20 mg PO QAM #90 tabs 02/04/23 10/06/23 Unknown finasteride 5 mg tablet 5 mg PO DAILY #90 tabs 03/04/23 10/06/23 Unknown warfarin 5 mg tablet See Rx Instructions PO .COMPLEX 04/02/23 10/06/23 Unknown #90 tabs metoprolol tartrate 25 mg tablet 25 mg PO BID #180 tabs 06/21/23 10/06/23 Unknown nitroglycerin 0.4 mg sublingual 0.4 mg sublingual UD PRN Chest 06/21/23 10/06/23 Unknown tablet (Nitrostat) Pain #100 tabs glucagon HCl 1 mg solution for 1 mg subcut Q20M PRN hypoglycemia 06/28/23 0 10/06/23 Unknown injection (Glucagon (HCl) #1 ea Emergency Kit) isosorbide mononitrate 30 mg 30 mg PO DAILY #90 tabs 07/16/23 10/06/23 Unknown tablet,extended release 24 hr doxazosin 2 mg tablet 2 mg PO DAILY 09/08/23 10/06/23 Unknown pen needle, diabetic 31 gauge x #200 ea 09/08/23 09/08/23 Unknown 1/4" (Comfort EZ Pen [place]) insulin lispro 100 unit/mL See Rx Instructions subcut TID #95 09/28/23 10/06/23 Unknown subcutaneous pen (Humalog KwikPen mL (U-100) Insulin) Active Medications Generic Name Dose Route Start Last Admin Trade Name Doris ESPINOZAN Reason Stop Dose Admin Aspirin 81 mg 10/07/23 09:00 10/11/23 08:57 Aspirin 81 Mg Ectab PO 11/06/23 08:59 81 mg QAM PENNY Administration Azelastine HCl 1 sprays 10/06/23 21:00 10/11/23 08:57 Azelastine Hcl 0.1% Nasal 200 Sprays/27,400 Mcg Btl CASSANDRA 11/05/23 20:59 1 sprays BID PENNY Administration Docusate Sodium 300 mg 10/06/23 21:00 10/10/23 20:04 Docusate Sodium 100 Mg Cap PO 11/05/23 20:59 300 mg HS PENNY Administration Doxazosin Mesylate 2 mg 10/07/23 09:00 10/11/23 08:57 Doxazosin Mesylate Tab 2 Mg Tab PO 11/06/23 08:59 2 mg DAILY PENNY Administration Finasteride 5 mg 10/07/23 09:00 10/11/23 08:57 Finasteride 5 Mg Tab PO 11/06/23 08:59 5 mg DAILY PENNY Administration Folic Acid 1 mg 10/07/23 09:00 10/11/23 08:57 Folic Acid 1 Mg Tab PO 11/06/23 08:59 1 mg DAILY PENNY Administration Daptomycin 625 mg/ Syringe 12.5 mls @ 6.25 mls/min 10/09/23 13:00 10/10/23 13:42 IV 11/18/23 12:59 6.25 mls/min Q24H PENNY Administration Protocol Insulin Aspart 0 units 10/10/23 07:30 10/11/23 09:01 Insulin Aspart Per Unit Charge SC 11/09/23 07:29 19 units DAILY@0730 [facility] Administration Protocol Insulin Aspart 0 units 10/09/23 16:30 10/10/23 21:05 Insulin Aspart Per Unit Charge SC 11/08/23 16:29 Not Given TID@1130,1630,2100 [facility] Protocol Insulin Glargine 0 units 10/07/23 21:00 10/10/23 21:05 Lantus Per Unit Charge SQ 06/01/24 20:59 Not Given HS PENNY Protocol Isosorbide Mononitrate 30 mg 10/07/23 09:00 10/11/23 08:58 Isosorbide [place] Extended Rel 30 Mg Tabcr PO 11/06/23 08:59 30 mg DAILY PENNY Administration Levothyroxine Sodium 25 mcg 10/07/23 06:30 10/11/23 05:13 Levothyroxine Sodium 25 Mcg Tablet PO 11/06/23 06:29 25 mcg DAILYBB PENNY Administration Magnesium Oxide 400 mg 10/07/23 11:30 10/10/23 12:14 Magnesium Oxide 400 Mg Tab PO 11/06/23 11:29 400 mg QDL PENNY Administration Metoprolol Tartrate 25 mg 10/06/23 21:00 10/11/23 08:57 Metoprolol Tartrate 25 Mg Tab PO 11/05/23 20:59 25 mg BID PENNY Administration Miscellaneous 15 - 30 gm 10/06/23 16:53 10/09/23 20:37 Carbohydrates For Hypoglycemia PO 11/05/23 16:52 15 gm UD PRN Administration Hypoglycemia Protocol Multivitamins 1 tab 10/07/23 11:30 10/10/23 12:14 Multivitamin Tab PO 11/06/23 11:29 1 tab QDL PENNY Administration Polyethylene Glycol 17 gm 10/07/23 09:00 10/11/23 08:57 Polyethylene (Miralax) 17 Gm Pack PO 11/06/23 08:59 17 gm DAILY PENNY Administration Thiamine HCl 100 mg 10/07/23 11:30 10/10/23 12:14 Thiamine Hcl 100 Mg Tab PO 11/06/23 11:29 100 mg QDL PENNY Administration Vitamin D 50 mcg 10/07/23 09:00 10/11/23 08:57 Cholecalciferol 25 Mcg (1000 Units) Tab PO 11/06/23 08:59 50 mcg DAILY PENNY Administration Warfarin Sodium 5 mg 10/09/23 16:00 10/10/23 15:52 Warfarin Sod 5 Mg Tab PO 11/08/23 15:59 5 mg [id number] PENNY Administration
--- NOTE | 2023-10-11 12:39 | Podiatry Progress Note ---
Date of Service October 11, 2023 Assessment & Plan (1) Diabetic infection of right foot: (2) Infection of great toe: (3) Osteomyelitis of toe of right foot: (4) Diabetic foot ulcer: Plan - Pt seen at bedside, doing well. Skin slough able to be removed uneventfully at bedside. - Has no current pain, only mild discomfort with walking/WB - Would benefit from wound care input since he would like to attempt limb salvage. - Will require 6-8 weeks IV abx most likely; cultures still pending. - Once IV abx plan established, can likely d/c home when stable per medicine and home abx are setup Admission and Anticipated Discharge Date Admission Date: October 06, 2023 Subjective Patient seen at bedside, status post right hallux I&D with bone biopsy. He is doing well with no new concerns at this time. He does state that he would like to attempt Limb salvage for this great toe ulceration. He has tolerated the wound VAC well. Wound care nursing has noticed a new area of skin sloughing today on wound VAC change, so requested we took a look at that today as well. He does deny any new systemic signs of infection. He also denies any recent medical history change. Review of Systems Constitutional: no fever, no chills and no fatigue Eyes: no problem reported Ear, Nose, Mouth, Throat: no problem reported Respiratory: no problem reported Cardiovascular: + edema; no problem reported Gastrointestinal: no nausea, no vomiting and no problem reported Musculoskeletal: no problem reported Integumentary: + skin ulcer, + wounds and + erythema Neurologic: + loss of sensation, + numbness and + pa resthesia; no generalized weakness Psychiatric: no problem reported Physical Exam Physical Exam: Lower extremity exam: DP/PT pulses nonpalpable. CFT brisk to digits. Right hallux ulcerated with underlying abscess. The ulcer did extend directly to the distal phalanx. No new purulent drainage is noted today on clinical exam. The edema is decreasing which has led to this loosening of skin, superficially, to the distal hallux. This was able to be removed without incident. Cellulitis is drastically improved. Constitutional: WD/WN, vitals as above + ill appearing and + obese Eyes: PERRL, conjunctivae normal, anicteric sclerae ENMT: external ear and nose normal, oropharynx normal Neck: trachea midline, no thyromegaly normal visual inspection Respiratory: normal respiratory effort; no respiratory distress Cardiovascular: Rate/Rhythm: regular rate and regular rhythm Chest (Breasts): Chest: normal inspection of chest Gastrointestinal (Abdomen): Inspection/Auscultation: abdomen normal to inspection Percussion/Palpation: + abdomen tender and abdomen soft Musculoskeletal: no cyanosis or clubbing, extremities motor strength 5/5 Head/Neck/Chest: normocephalic and head atraumatic Extremities: extremities normal to inspection Skin: + ulcer, + wound, + dry skin, + erythema and + fluctulance Neurologic: awake; no focal motor deficits Psychiatric: A+Ox3, euthymic affect Results & Data Results & Data Vital Signs (Past 12 Hours) Vital Signs Temp Pulse Pulse Resp BP Pulse Ox O2 Del Method 10/11/23 07:42 36.8 C 71 16 163/74 H 96 Room Air 10/11/23 03:02 79 17 94 (4) Diabetic foot ulcer Diabetes mellitus type: type 1 Diabetic foot ulcer location: midfoot Laterality: right Non-pressure ulcer stage: unspecified non-pressure ulcer stage Qualified Code(s): E10.621 - Type 1 diabetes mellitus with foot ulcer; L97.419 - Non-pressure chronic ulcer of right heel and midfoot with unspecified severity
[2023-10-11] MEDS ORDERED: WARFARIN SOD 5 MG TAB PO SCH (16:00)
--- NOTE | 2023-10-11 16:19 | Hospitalist Progress Note ---
Date of Service October 11, 2023 Assessment & Plan (1) Osteomyelitis of toe of right foot: Plan: Right foot first toe ulcer with osteomyelitis Surgical wound culture growing MRSA Continue with daptomycin per ID recommendations Blood cultures negative Patient will most likely need weeks of IV antibiotics. Awaiting final ID recommendations so bilingual patient support caseworker can arrange for IV antibiotics at home Vascular surgery on board, recommended no intervention at this time (2) Diabetic foot ulcer: Plan: Vascular did not recommend any intervention at this time (3) Murmur: Plan: TTE reviewed (4) Paroxysmal atrial fibrillation: Plan: s/p left atrial appendage clip and partial Maze procedure during CABG in December 2022 Currently in NSR (5) S/P CABG x 3: Plan: December 2022 Continue aspirin, ISMN, metoprolol Atorvastatin on hold with daptomycin (6) Complex sleep apnea syndrome: Plan: BiPAP 13/ HS, may use own BiPAP (7) Diabetes type 1, uncontrolled: Plan: Hemoglobin A1C 7.8 in September, no need to repeat Reduce Lantus dosing to 25 -> 15 units HS Novolog: --Goal BSG Range: Low 110 mg/dL, High 140 mg/dL --Correction Factor: 7 mg/dL/unit --Carbohydrate ratio = 25 g/unit --BSGs ACHS if eating, q6h if npo Consult pharmacy for ongoing management in setting of T1DM (8) Hypothyroidism: Plan: TSH 3.474 in 01/2023 Continue levothyroxine (9) Hypertension: Plan: Continue metoprolol, ISMN and torsemide (hold torsemide pre-operatively) (10) Anticoagulant long-term use: Plan: 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 daily 5/3 INR therapeutic at 2.3 today 5/6 Discontinue Lovenox (11) Cellulitis: Plan VTE prophylaxis -on Coumadin, therapeutic Diet - T2DM after OR Admission and Anticipated Discharge Date Admission Date: October 06, 2023 Subjective Patient feels well. Denies chest pain or shortness of breath. Review of Systems Review of Systems: All systems reviewed & are unremarkable except as noted in Subjective Physical Exam Physical Exam: General: Awake, conversant Heart: S1, S2/regular rate and rhythm, no murmur rubs or gallops Lungs: Clear to auscultation bilaterally. Normal effort Abdomen: Soft/nontender/nondistended. No hepatosplenomegaly Extremities: No clubbing/cyanosis. No edema. Dressing on the right foot Behavior: Appropriate, cooperative Results & Data Results & Data Vital Signs (Past 12 Hours) Vital Signs Temp Pulse Resp BP Pulse Ox O2 Del Method 10/11/23 15:21 36.5 C 71 16 126/70 97 Room Air 10/11/23 07:42 36.8 C 71 16 163/74 H 96 Room Air Laboratory Results Abnormal lab results 10/10/23 10/11/23 10/11/23 Range/Units 19:50 06:46 08:06 PT 22.9 H (9.0-12.0) Seconds INR 2.3 H (0.9-1.1) Creatinine 1.49 H (0.6-1.4) mg/dl POC Glucose 112 H 179 H (70-99) mg/dl 10/11/23 Range/Units 11:56 PT (9.0-12.0) Seconds INR (0.9-1.1) Creatinine (0.6-1.4) mg/dl POC Glucose 216 H (70-99) mg/dl PG Care Time/CCT Total # of Minutes Spent Total Time Spent with Patient: Total time spent is greater than 50% in coordination of care (as documented) at patient's floor/unit and/or counseling patient: Coding Level of Care Code 68337 SUB INP/OBS CARE 2/35MIN Diagnoses Osteomyelitis of toe of right foot M86.9 Diabetic foot ulcer E10.621; L97.419 Diabetes mellitus type: type 1 Diabetic foot ulcer location: midfoot Laterality: right Non-pressure ulcer stage: unspecified non-pressure ulcer stage Murmur R01.1 Paroxysmal atrial fibrillation I48.0 S/P CABG x 3 Z95.1 Complex sleep apnea syndrome G47.31 Diabetes type 1, uncontrolled E10.65 Hypothyroidism E03.9 Hypertension I10 Anticoagulant long-term use Z79.01 Cellulitis L03.90 (2) Diabetic foot ulcer Diabetes mellitus type: type 1 Diabetic foot ulcer location: midfoot Laterality: right Non-pressure ulcer stage: unspecified non-pressure ulcer stage Qualified Code(s): E10.621 - Type 1 diabetes mellitus with foot ulcer; L97.419 - Non-pressure chronic ulcer of right heel and midfoot with unspecified severity
[2023-10-11] MEDS: WARFARIN SOD 2.5 MG TAB PO SCH (17:15)
[2023-10-11] MEDS: LANTUS PER UNIT CHARGE SQ SCH (17:16)
[2023-10-11] MEDS ORDERED: SENNA 8.6 MG TAB PO PRN (20:23)
[2023-10-12 08:19] LABS: Hemoglobin 12.3 g/dl (14.0-18.0); Mean Corpuscular Hemoglobin 30.4 pg (25.0-34.0); Mean Corpuscular Hgb Conc 33.2 g/dL (32.0-36.0); Mean Corpuscular Volume 91.4 fL (80.0-100.0); Mean Platelet Volume 9.8 fL (9.4-12.4); Platelet Count 232 K/uL (130-400); RDW Coefficient of Variation 13.2 % (11.5-14.5); RDW Standard Deviation 44.3 fL (36.4-46.3); Red Blood Count 4.05 M/uL (4.70-6.10)
[2023-10-12 08:33] LABS: Calcium 8.7 mg/dl (8.6-10.3); Creatinine Clr Calc Pharmacy 42.5 ml/min; Est GFR (African American) 50.8 ml/min; Est GFR (Non-African American) 43.8 ml/min; Potassium 4.5 mmol/L (3.5-5.1)
--- NOTE | 2023-10-12 12:38 | Pharmacy Report ---
Pharmacy Glycemic Short Note 2 - Date of Service October 12, 2023 - Glycemic Short BSG Results (Last 24 hours): 10/11/23 10/11/23 10/12/23 16:54 20:12 07:03 Glucose 147 H POC Glucose 126 H 120 H 10/12/23 10/12/23 07:58 12:02 Glucose POC Glucose 150 H 141 H OUTPATIENT ANTIDIABETIC REGIMEN: * Toujeo 25 units SC HS * Humalog SC AC * Carb ratio of 1:3 * Max dose of 105 units/day * HbA1c: 7.8% (09/06/23) ASSESSMENT: 10/11: * BSGs have been relatively stable on current regimen. * Novolog adjusted slightly this morning d/t continued trend of pre-lunch hyperglycemia. * Lantus has been transitioned back to HS dosing for ease of discharge planning. * No further changes indicated at this time. 10/07: * Sheng received 25 units of insulin yesterday, 10 basal + 15 bolus. BSGs were: 83-09-899-152 mg/dL. * Fasting BSG was 93 mg/dL this AM, trending up. Will adjust scaled basal dose at HS tonight to provide 10 or 15 units now that patient will be eating more. * No change to Novolog. 10/06: * Patient received 15 units of basal insulin and 12 units bolus insulin yesterday. * BSGs yesterday were 189-131 at dinner and HS respectively. Fasting BSG today = 76 mg/dl. * NPO today for I&D of R great toe due to infection. Pre-lunch BSG was low at 91 mg/dl. * Basal insulin for tonight ordered on a scale based on BSG. Will continue with Novolog parameters the same. 10/05: * 82 yo M admitted on 10/06/23 secondary to osteomyelitis. Pharmacy has been consulted to assist with inpatient glycemic management. Patient is a Type 1 diabetic as an outpatient. Please refer to outpatient regimen and most recent HbA1c above. * Possible need for patient to go to OR tomorrow so will be NPO after midnight. Ordered a T2DM diet for now. On cefepime and daptomycin. * BSG on AM lab was 317 mg/dL. Dinner accucheck was 189 mg/dL. Will base regimen on previous admission data. * Patient is on Toujeo at home, last dose last night per RN. Empirically required to reduce Toujeo by 20% when converting to Lantus. Will empirically reduce another 25% to account for patient being NPO after midnight. If no OR tomorrow, then can consider giving a small AM basal dose if BSG is elevated. PLAN FOR INPATIENT GLYCEMIC CONTROL: * Basal insulin * Lantus 20 units SC HS * Bolus insulin * NovoLog per scale ACHS or Q6hrs while NPO * Goal Range: Low 110 mg/dL - High 140 mg/dL * Correction Factor: 50 mg/dL/unit at breakfast 65 mg/dL/unit for lunch, dinner, HS * Nutritional / Prandial insulin per carb ratio of 1 unit per 2.5 grams CHO consumed at breakfast 1 unit per 5 gm CHO consumed at lunch, dinner, HS
--- NOTE | 2023-10-12 16:10 | Hospitalist Progress Note ---
Date of Service October 12, 2023 Assessment & Plan (1) Osteomyelitis of toe of right foot: Plan: Right foot first toe ulcer with osteomyelitis Surgical wound culture growing MRSA Continue with daptomycin per ID recommendations Blood cultures negative ID recommends IV daptomycin for 6 weeks. PICC line order placed Case management working on arranging for home IV antibiotics Order for daptomycin given to nurse navigator Vascular surgery on board, recommended no intervention at this time (2) Diabetic foot ulcer: Plan: Vascular did not recommend any intervention at this time (3) Murmur: Plan: TTE reviewed (4) Paroxysmal atrial fibrillation: Plan: s/p left atrial appendage clip and partial Maze procedure during CABG in December 2022 Currently in NSR (5) S/P CABG x 3: Plan: December 2022 Continue aspirin, ISMN, metoprolol Atorvastatin on hold with daptomycin (6) Complex sleep apnea syndrome: Plan: BiPAP 13/ HS, may use own BiPAP (7) Diabetes type 1, uncontrolled: Plan: Hemoglobin A1C 7.8 in September, no need to repeat Reduce Lantus dosing to 25 -> 15 units HS Novolog: --Goal BSG Range: Low 110 mg/dL, High 140 mg/dL --Correction Factor: 7 mg/dL/unit --Carbohydrate ratio = 25 g/unit --BSGs ACHS if eating, q6h if npo Consult pharmacy for ongoing management in setting of T1DM (8) Hypothyroidism: Plan: TSH 3.474 in 01/2023 Continue levothyroxine (9) Hypertension: Plan: Continue metoprolol, ISMN and torsemide (hold torsemide pre-operatively) (10) Anticoagulant long-term use: Plan: 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 daily 5/3 INR therapeutic at 2.3 5/6 Discontinued Lovenox (11) Cellulitis: Plan VTE prophylaxis -on Coumadin, therapeutic Diet - T2DM after OR Likely discharge tomorrow Admission and Anticipated Discharge Date Admission Date: October 06, 2023 Subjective Patient feels well. No chest pain or shortness of breath. Review of Systems Review of Systems: All systems reviewed & are unremarkable except as noted in Subjective Physical Exam Physical Exam: General: Awake, conversant Heart: S1, S2/regular rate and rhythm, no murmur rubs or gallops Lungs: Clear to auscultation bilaterally. Normal effort Abdomen: Soft/nontender/nondistended. No hepatosplenomegaly Extremities: No clubbing/cyanosis. No edema. Dressing on the right foot Behavior: Appropriate, cooperative Results & Data Results & Data Vital Signs (Past 12 Hours) Vital Signs Temp Pulse Resp BP Pulse Ox O2 Del Method 10/12/23 15:34 36.4 C L 75 16 140/66 97 Room Air 10/12/23 09:52 Room Air 10/12/23 07:44 36.5 C 70 18 162/72 H 94 Room Air Laboratory Results Abnormal lab results 10/11/23 10/11/23 10/12/23 Range/Units 16:54 20:12 07:03 RBC 4.05 L (4.70-6.10) M/uL Hgb 12.3 L (14.0-18.0) g/dl Hct 37.0 L (42.0-52.0) % BUN 28 H (6-23) mg/dl Creatinine 1.47 H (0.6-1.4) mg/dl Glucose 147 H (70-99(Fasting)) mg/dl POC Glucose 126 H 120 H (70-99) mg/dl 10/12/23 10/12/23 Range/Units 07:58 12:02 RBC (4.70-6.10) M/uL Hgb (14.0-18.0) g/dl Hct (42.0-52.0) % BUN (6-23) mg/dl Creatinine (0.6-1.4) mg/dl Glucose (70-99(Fasting)) mg/dl POC Glucose 150 H 141 H (70-99) mg/dl PG Care Time/CCT Total # of Minutes Spent Total Time Spent with Patient: Total time spent is greater than 50% in coordination of care (as documented) at patient's floor/unit and/or counseling patient: Coding Level of Care Code 30742 SUB INP/OBS CARE 2/35MIN Diagnoses Osteomyelitis of toe of right foot M86.9 Diabetic foot ulcer E10.621; L97.419 Diabetes mellitus type: type 1 Diabetic foot ulcer location: midfoot Laterality: right Non-pressure ulcer stage: unspecified non-pressure ulcer stage Murmur R01.1 Paroxysmal atrial fibrillation I48.0 S/P CABG x 3 Z95.1 Complex sleep apnea syndrome G47.31 Diabetes type 1, uncontrolled E10.65 Hypothyroidism E03.9 Hypertension I10 Anticoagulant long-term use Z79.01 Cellulitis L03.90 (2) Diabetic foot ulcer Diabetes mellitus type: type 1 Diabetic foot ulcer location: midfoot Laterality: right Non-pressure ulcer stage: unspecified non-pressure ulcer stage Qualified Code(s): E10.621 - Type 1 diabetes mellitus with foot ulcer; L97.419 - Non-pressure chronic ulcer of right heel and midfoot with unspecified severity
[2023-10-13 06:18] LABS: Hematocrit (blood only) 37.1 % (42.0-52.0); Hemoglobin 12.5 g/dl (14.0-18.0); Mean Corpuscular Hemoglobin 30.6 pg (25.0-34.0); Mean Corpuscular Hgb Conc 33.7 g/dL (32.0-36.0); Mean Corpuscular Volume 90.9 fL (80.0-100.0); Mean Platelet Volume 9.7 fL (9.4-12.4); Platelet Count 229 K/uL (130-400); RDW Standard Deviation 42.5 fL (36.4-46.3); Red Blood Count 4.08 M/uL (4.70-6.10); White Blood Count 7.33 K/ul (4.8-10.8)
--- NOTE | 2023-10-13 13:52 | Pharmacy Report ---
Pharmacy Glycemic Short Note 2 - Date of Service October 13, 2023 - Glycemic Short BSG Results (Last 24 hours): 10/12/23 10/12/23 10/13/23 17:11 20:31 07:47 POC Glucose 108 H 162 H 196 H 10/13/23 11:32 POC Glucose 217 H OUTPATIENT ANTIDIABETIC REGIMEN: * Toujeo 25 units SC HS * Humalog SC AC * Carb ratio of 1:3 * Max dose of 105 units/day * HbA1c: 7.8% (09/06/23) ASSESSMENT: 10/12: * Fasting this AM 196 mg/dL- will increase basal ~15% for tonight * Continue current novolog parameters 10/11: * BSGs have been relatively stable on current regimen. * Novolog adjusted slightly this morning d/t continued trend of pre-lunch hyperglycemia. * Lantus has been transitioned back to HS dosing for ease of discharge planning. * No further changes indicated at this time. 10/07: * Sheng received 25 units of insulin yesterday, 10 basal + 15 bolus. BSGs were: 98-27-925-152 mg/dL. * Fasting BSG was 93 mg/dL this AM, trending up. Will adjust scaled basal dose at HS tonight to provide 10 or 15 units now that patient will be eating more. * No change to Novolog. 10/06: * Patient received 15 units of basal insulin and 12 units bolus insulin yesterday. * BSGs yesterday were 189-131 at dinner and HS respectively. Fasting BSG today = 76 mg/dl. * NPO today for I&D of R great toe due to infection. Pre-lunch BSG was low at 91 mg/dl. * Basal insulin for tonight ordered on a scale based on BSG. Will continue with Novolog parameters the same. 10/05: * 82 yo M admitted on 10/06/23 secondary to osteomyelitis. Pharmacy has been consulted to assist with inpatient glycemic management. Patient is a Type 1 diabetic as an outpatient. Please refer to outpatient regimen and most recent HbA1c above. * Possible need for patient to go to OR tomorrow so will be NPO after midnight. Ordered a T2DM diet for now. On cefepime and daptomycin. * BSG on AM lab was 317 mg/dL. Dinner accucheck was 189 mg/dL. Will base regimen on previous admission data. * Patient is on Toujeo at home, last dose last night per RN. Empirically required to reduce Toujeo by 20% when converting to Lantus. Will empirically reduce another 25% to account for patient being NPO after midnight. If no OR tomorrow, then can consider giving a small AM basal dose if BSG is elevated. PLAN FOR INPATIENT GLYCEMIC CONTROL: * Basal insulin * Lantus 23 units SC HS * Bolus insulin * NovoLog per scale ACHS or Q6hrs while NPO * Goal Range: Low 110 mg/dL - High 140 mg/dL * Correction Factor: 50 mg/dL/unit at breakfast 65 mg/dL/unit for lunch, dinner, HS * Nutritional / Prandial insulin per carb ratio of 1 unit per 2.5 grams CHO consumed at breakfast 1 unit per 5 gm CHO consumed at lunch, dinner, HS
--- NOTE | 2023-10-13 15:48 | Hospitalist Progress Note ---
Date of Service October 13, 2023 Assessment & Plan (1) Osteomyelitis of toe of right foot: Plan: Right foot first toe ulcer with osteomyelitis Surgical wound culture growing MRSA Continue with daptomycin per ID recommendations Blood cultures negative ID recommends IV daptomycin for 6 weeks. ID also recommends to follow-up on the sensitivities for Corynebacterium. This was sent out to [facility]. This may need to be pursued outpatient. Patient will need ID follow-up, PCP follow-up, podiatry follow-up. PICC line in place Case management working on arranging for home IV antibiotics Order for daptomycin given to nurse navigator Vascular surgery on board, recommended no intervention at this time (2) Diabetic foot ulcer: Plan: Vascular did not recommend any intervention at this time (3) Murmur: Plan: TTE reviewed (4) Paroxysmal atrial fibrillation: Plan: s/p left atrial appendage clip and partial Maze procedure during CABG in December 2022 Currently in NSR (5) S/P CABG x 3: Plan: December 2022 Continue aspirin, ISMN, metoprolol Atorvastatin on hold with daptomycin (6) Complex sleep apnea syndrome: Plan: BiPAP 13/6 HS, may use own BiPAP (7) Diabetes type 1, uncontrolled: Plan: Hemoglobin A1C 7.8 in September, no need to repeat Reduce Lantus dosing to 25 -> 15 units HS Novolog: --Goal BSG Range: Low 110 mg/dL, High 140 mg/dL --Correction Factor: 7 mg/dL/unit --Carbohydrate ratio = 25 g/unit --BSGs ACHS if eating, q6h if npo Consult pharmacy for ongoing management in setting of T1DM (8) Hypothyroidism: Plan: TSH 3.474 in 01/2023 Continue levothyroxine (9) Hypertension: Plan: Continue metoprolol, ISMN and torsemide (hold torsemide pre-operatively) (10) Anticoagulant long-term use: Plan: 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 daily 5/3 INR therapeutic at 2.3 5/6 Discontinued Lovenox (11) Cellulitis: Plan VTE prophylaxis -on Coumadin, therapeutic Diet - T2DM after OR Likely discharge tomorrow Admission and Anticipated Discharge Date Admission Date: October 06, 2023 Subjective Patient feels well overall. Denies chest pain or shortness of breath. He is waiting for everything (IV antibiotics, wound VAC) to be set up so he can go home Review of Systems Review of Systems: All systems reviewed & are unremarkable except as noted in Subjective Physical Exam Physical Exam: General: Awake, conversant Heart: S1, S2/regular rate and rhythm, no murmur rubs or gallops Lungs: Clear to auscultation bilaterally. Normal effort Abdomen: Soft/nontender/nondistended. No hepatosplenomegaly Extremities: No clubbing/cyanosis. No edema. Dressing on the right foot Behavior: Appropriate, cooperative Results & Data Results & Data Vital Signs (Past 12 Hours) Vital Signs Temp Pulse Resp BP Pulse Ox O2 Del Method 10/13/23 07:45 36.3 C L 69 16 161/74 H 97 Room Air 10/13/23 03:45 16 Laboratory Results Abnormal lab results 10/12/23 10/12/23 10/13/23 Range/Units 17:11 20:31 05:27 RBC 4.08 L (4.70-6.10) M/uL Hgb 12.5 L (14.0-18.0) g/dl Hct 37.1 L (42.0-52.0) % POC Glucose 108 H 162 H (70-99) mg/dl 10/13/23 10/13/23 Range/Units 07:47 11:32 RBC (4.70-6.10) M/uL Hgb (14.0-18.0) g/dl Hct (42.0-52.0) % POC Glucose 196 H 217 H (70-99) mg/dl PG Care Time/CCT Total # of Minutes Spent Total Time Spent with Patient: Total time spent is greater than 50% in coordination of care (as documented) at patient's floor/unit and/or counseling patient: Coding Level of Care Code 05316 SUB INP/OBS CARE 2/35MIN Diagnoses Osteomyelitis of toe of right foot M86.9 Diabetic foot ulcer E10.621; L97.419 Diabetes mellitus type: type 1 Diabetic foot ulcer location: midfoot Laterality: right Non-pressure ulcer stage: unspecified non-pressure ulcer stage Murmur R01.1 Paroxysmal atrial fibrillation I48.0 S/P CABG x 3 Z95.1 Complex sleep apnea syndrome G47.31 Diabetes type 1, uncontrolled E10.65 Hypothyroidism E03.9 Hypertension I10 Anticoagulant long-term use Z79.01 Cellulitis L03.90 (2) Diabetic foot ulcer Diabetes mellitus type: type 1 Diabetic foot ulcer location: midfoot Laterality: right Non-pressure ulcer stage: unspecified non-pressure ulcer stage Qualified Code(s): E10.621 - Type 1 diabetes mellitus with foot ulcer; L97.419 - Non-pressure chronic ulcer of right heel and midfoot with unspecified severity
[2023-10-13] MEDS: LANTUS PER UNIT CHARGE SQ SCH (20:06)
[2023-10-14 07:35] LABS: Hematocrit (blood only) 36.7 % (42.0-52.0); Hemoglobin 12.3 g/dl (14.0-18.0); Mean Corpuscular Hemoglobin 30.3 pg (25.0-34.0); Mean Corpuscular Hgb Conc 33.5 g/dL (32.0-36.0); Mean Corpuscular Volume 90.4 fL (80.0-100.0); Mean Platelet Volume 9.7 fL (9.4-12.4); Platelet Count 218 K/uL (130-400); RDW Coefficient of Variation 13.2 % (11.5-14.5); RDW Standard Deviation 43.5 fL (36.4-46.3); Red Blood Count 4.06 M/uL (4.70-6.10); White Blood Count 7.31 K/ul (4.8-10.8)
[2023-10-14 07:43] LABS: INR 2.6 (0.9-1.1); Prothrombin Time 25.5 Seconds (9.0-12.0)
[2023-10-14 07:51] LABS: Creatinine Clr Calc Pharmacy 50.4 ml/min; Est GFR (African American) 62.4 ml/min; Est GFR (Non-African American) 53.8 ml/min
--- NOTE | 2023-10-14 17:26 | Hospitalist Progress Note ---
Date of Service October 14, 2023 Assessment & Plan (1) Osteomyelitis of toe of right foot: Plan: Right foot first toe ulcer with osteomyelitis Surgical wound culture growing MRSA Continue with daptomycin per ID recommendations Blood cultures negative ID recommends IV daptomycin for 6 weeks. ID also recommends to follow-up on the sensitivities for Corynebacterium. This was sent out to [facility]. This may need to be pursued outpatient. Patient will need ID follow-up, PCP follow-up, podiatry follow-up. PICC line in place Case management working on arranging for home IV antibiotics Order for daptomycin given to nurse navigator Vascular surgery on board, recommended no intervention at this time (2) Diabetic foot ulcer: Plan: Vascular did not recommend any intervention at this time (3) Murmur: Plan: TTE reviewed (4) Paroxysmal atrial fibrillation: Plan: s/p left atrial appendage clip and partial Maze procedure during CABG in December 2022 Currently in NSR (5) S/P CABG x 3: Plan: December 2022 Continue aspirin, ISMN, metoprolol Atorvastatin on hold with daptomycin (6) Complex sleep apnea syndrome: Plan: BiPAP 13/ HS, may use own BiPAP (7) Diabetes type 1, uncontrolled: Plan: Hemoglobin A1C 7.8 in September, no need to repeat Reduce Lantus dosing to 25 -> 15 units HS Novolog: --Goal BSG Range: Low 110 mg/dL, High 140 mg/dL --Correction Factor: 7 mg/dL/unit --Carbohydrate ratio = 25 g/unit --BSGs ACHS if eating, q6h if npo Consult pharmacy for ongoing management in setting of T1DM (8) Hypothyroidism: Plan: TSH 3.474 in 01/2023 Continue levothyroxine (9) Hypertension: Plan: Continue metoprolol, ISMN and torsemide (hold torsemide pre-operatively) (10) Anticoagulant long-term use: Plan: 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 daily 5/3 INR therapeutic at 2.3 5/6 Discontinued Lovenox (11) Cellulitis: Plan VTE prophylaxis -on Coumadin, therapeutic Diet - T2DM after OR Likely discharge tomorrow per manager case management after practices administration of IV antibiotic here at the hospital tomorrow. Admission and Anticipated Discharge Date Admission Date: October 06, 2023 Subjective Patient feels well. Denies chest pain or shortness of breath. Review of Systems Review of Systems: All systems reviewed & are unremarkable except as noted in Subjective Physical Exam Physical Exam: General: Awake, conversant Heart: S1, S2/regular rate and rhythm, no murmur rubs or gallops Lungs: Clear to auscultation bilaterally. Normal effort Abdomen: Soft/nontender/nondistended. No hepatosplenomegaly Extremities: No clubbing/cyanosis. No edema. Dressing on the right foot Behavior: Appropriate, cooperative Results & Data Results & Data Vital Signs (Past 12 Hours) Vital Signs Temp Pulse Pulse Resp BP Pulse Ox O2 Del Method 10/14/23 15:17 36.4 C L 76 16 141/66 H 95 Room Air 10/14/23 10:57 143/65 H 10/14/23 07:51 36.4 C L 73 16 190/77 H 96 Room Air PG Care Time/CCT Total # of Minutes Spent Total Time Spent with Patient: Total time spent is greater than 50% in coordination of care (as documented) at patient's floor/unit and/or counseling patient: Coding Level of Care Code 51167 SUB INP/OBS CARE 2/35MIN Diagnoses Osteomyelitis of toe of right foot M86.9 Diabetic foot ulcer E10.621; L97.419 Diabetes mellitus type: type 1 Diabetic foot ulcer location: midfoot Laterality: right Non-pressure ulcer stage: unspecified non-pressure ulcer stage Murmur R01.1 Paroxysmal atrial fibrillation I48.0 S/P CABG x 3 Z95.1 Complex sleep apnea syndrome G47.31 Diabetes type 1, uncontrolled E10.65 Hypothyroidism E03.9 Hypertension I10 Anticoagulant long-term use Z79.01 Cellulitis L03.90 (2) Diabetic foot ulcer Diabetes mellitus type: type 1 Diabetic foot ulcer location: midfoot Laterality: right Non-pressure ulcer stage: unspecified non-pressure ulcer stage Qualified Code(s): E10.621 - Type 1 diabetes mellitus with foot ulcer; L97.419 - Non-pressure chronic ulcer of right heel and midfoot with unspecified severity
[2023-10-14] MEDS: LANTUS PER UNIT CHARGE SQ SCH (21:09)
[2023-10-15 06:35] LABS: Hematocrit (blood only) 36.7 % (42.0-52.0); Hemoglobin 12.2 g/dl (14.0-18.0); Mean Corpuscular Hgb Conc 33.2 g/dL (32.0-36.0); Mean Corpuscular Volume 90.4 fL (80.0-100.0); Mean Platelet Volume 9.8 fL (9.4-12.4); Platelet Count 233 K/uL (130-400); RDW Coefficient of Variation 13.1 % (11.5-14.5); Red Blood Count 4.06 M/uL (4.70-6.10); White Blood Count 7.42 K/ul (4.8-10.8)
--- NOTE | 2023-10-15 14:35 | Discharge Summary ---
Discharge Summary Date of Service October 15, 2023 Notes For Next Care Provider Pt to be discharged on 6 weeks of Daptomycin and will need close follow up with Dm Gilbert DPM, his diabetic management team and Primary Care Physician Medication Changes From Visit Lipitor on hold while on Daptomycin INR will need to be followed closely, on 10/13 was 2.6 Admission HPI Per Admitting Provider Sheng Cagle is an 82 year old male with T1DM who presents to the ER with right 1st toe infection. He reports the toe was cut by his art specialist too much 1 month ago. He has no prior foot infections or known peripheral artery disease but he does have peripheral neuropathy. He notes 3-4 days of worsening pain and redness. Not previously seen by his PCP or put on antibiotics for this infection. 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 He missed all his morning medications. He has a significant history of CABG in December 2022. No current chest pain or shortness of breath on exertion. Principal Dx & Hospital Course #1 = Principal Diagnosis (1) Osteomyelitis of toe of right foot: Right foot first toe ulcer with osteomyelitis Surgical wound culture growing MRSA Continue with daptomycin per ID recommendations Blood cultures negative ID recommends IV daptomycin for 6 weeks. ID also recommends to follow-up on the sensitivities for Corynebacterium. This was sent out to [facility]. This may need to be pursued outpatient. Patient will need ID follow-up, PCP follow-up, podiatry follow-up. 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 Continue aspirin, ISMN, metoprolol Atorvastatin on hold with daptomycin (6) Complex sleep apnea syndrome: BiPAP 13/6 HS, may use own BiPAP (7) Diabetes type 1, uncontrolled: Hemoglobin A1C 7.8 in September, no need to repeat Reduce Lantus dosing to 25 -> 15 units HS Novolog: --Goal BSG Range: Low 110 mg/dL, High 140 mg/dL --Correction Factor: 7 mg/dL/unit --Carbohydrate ratio = 25 g/unit --BSGs ACHS if eating, q6h if npo Consult pharmacy for ongoing management in setting of T1DM (8) Hypothyroidism: TSH 3.474 in 01/2023 Continue levothyroxine (9) Hypertension: Continue metoprolol, ISMN and torsemide (hold torsemide pre-operatively) (10) Anticoagulant long-term use: 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 daily 10/07 INR therapeutic at 2.3 56, on 10/13 was 2.6 Discontinued Lovenox will need recheck post dc (11) Cellulitis: Plan VTE prophylaxis -on Coumadin, therapeutic Diet - T2DM after OR discharge today per disease case manager rn after practices administration of IV antibiotic here at the hospital tomorrow. As per Referral Management Liaison, all arrangements and teaching completed Discharge Exam General: Awake, conversant Heart: S1, S2/regular rate and rhythm, no murmur rubs or gallops Lungs: Clear to auscultation bilaterally. Normal effort Abdomen: Soft/nontender/nondistended. No hepatosplenomegaly Extremities: No clubbing/cyanosis. No edema. Dressing on the right foot Behavior: Appropriate, cooperative Updated Medication List Medication Instructions Recorded Confirmed Type multivitamin 1 tab PO QDL ##0 11/28/10/06/23 History docusate sodium 100 mg capsule 300 mg PO HS #0 caps 01/19/17 10/06/23 History magnesium 250 mg tablet 250 mg PO QDL ##0 01/19/17 10/06/23 History fluticasone propionate 50 2 sprays intranasal DAILY PRN 01/10/19 10/06/23 History mcg/actuation nasal Nasal Congestion spray,suspension lutein 20 mg capsule 20 mg PO QDL 01/10/19 10/06/23 History thiamine HCl (vitamin B1) 100 mg 100 mg PO QDL 01/10/19 10/06/23 History tablet aspirin 81 mg tablet,delayed 81 mg PO QAM 11/10/19 10/06/23 History release cholecalciferol (vitamin D3) 50 50 mcg PO DAILY 07/31/20 10/06/23 History mcg (2,000 unit) capsule acetone (urine) test (Ketone Urine #50 ea 08/05/21 09/08/23 Rx Test strips) FreeStyle Anna 2 Sensor (flash #2 ea 11/27/21 09/08/23 Rx glucose sensor) polyethylene glycol 3350 17 17 g PO DAILY 12/01/21 10/06/23 History gram/dose oral powder (Miralax) atorvastatin 40 mg tablet 40 mg PO HS #90 tabs 05/18/22 10/06/23 Rx levothyroxine 25 mcg tablet 25 mcg PO QAM #90 tabs 05/18/22 10/06/23 Rx azelastine 137 mcg (0.1 %) nasal 1 spray intranasal BID #90 mL 08/20/22 10/06/23 Rx spray aerosol folic acid 1 mg tablet 1 mg PO DAILY 12/02/22 10/06/23 History insulin glargine U-300 conc 300 25 unit subcut DAILY 01/15/23 10/06/23 History unit/mL (1.5 mL) subcutaneous pen (T[place]anty SoloStar U-300 Insulin) torsemide 20 mg tablet 20 mg PO QAM #90 tabs 02/04/23 10/06/23 Rx finasteride 5 mg tablet 5 mg PO DAILY #90 tabs 03/04/23 10/06/23 Rx warfarin 5 mg tablet See Rx Instructions PO .COMPLEX 04/02/23 10/06/23 Rx #90 tabs metoprolol tartrate 25 mg tablet 25 mg PO BID #180 tabs 06/21/23 10/06/23 Rx nitroglycerin 0.4 mg sublingual 0.4 mg sublingual UD PRN Chest 06/21/23 10/06/23 Rx tablet (Nitrostat) Pain #100 tabs glucagon HCl 1 mg solution for 1 mg subcut Q20M PRN hypoglycemia 06/28/23 10/06/23 Rx injection (Glucagon (HCl) #1 ea Emergency Kit) isosorbide mononitrate 30 mg 30 mg PO DAILY #90 tabs 07/16/23 10/06/23 Rx tablet,extended release 24 hr doxazosin 2 mg tablet 2 mg PO DAILY 09/08/23 10/06/23 History pen needle, diabetic 31 gauge x #200 ea 09/08/23 09/08/23 Rx 06/10" (Comfort EZ Pen [place]) insulin lispro 100 unit/mL See Rx Instructions subcut TID #95 09/28/23 10/06/23 Rx subcutaneous pen (Humalog KwikPen mL (U-100) Insulin) daptomycin 500 mg/50 mL in 0.9 % 660 mg (66 mL) IV DAILY 10/12/23 Rx sodium chloride intravenous pigback Hospital Stay Data Consultations 10/06/23 12:29 ED Decision to Admit Stat 10/06/23 16:53 Consult Cardiology Routine Consult Podiatry Routine 10/07/23 14:39 Consult Infectious Diseases Routine Consult Vascular Surgery Routine Procedures Performed Operation Date: 10/07/23 07:00 Actual Procedures p Right Hallux Incision and Drainage with bone biopsy(Right) - Dm Gilbert DPM Diagnostic Imagining Performed 10/06/23 12:51 US arterial duplex LE RT Stat Pending Results Patient Have Any Pending Studies at Discharge: Yes Discharge Instructions Given to Patient (Per Discharging Provider) - Advised to follow-up with PCP in 1 week - Advised to follow-up with podiatry Advised to follow-up with infectious disease Advised to note that you are being discharged on IV daptomycin 660 mg once daily for 6 weeks. End date 11/18/2023 Advised that you will need weekly labs that include: CBC with differential, BMP, LFT, CPK, ESR, CRP Home Health Attestation I certify that this patient is under my care and that I, or a physicians assistant teacher primary working with me, had a face to-face encounter that meets the home health [id number] encounter requirements with this patient. The encounter with the patient was in whole, or in part, for the following medical condition, which is the primary reason for home health care (list medical condition): I certify that, based on my findings, the following services are medically necessary home health services: My clinical findings support the need for the above services because: Further, I certify that my clinical findings support that this patient is homebound (i.e. absences from home require considerable and taxing effort and are for medical reasons or caodaism services or infrequently or of short duration when for other reasons) because: Certification for Home Health Services: Based on the above findings, I certify that this patient is confined to the home and needs intermittent retirement care, physical therapy and/or speech therapy or continues to need occupational therapy. The patient is under my care, and I have initiated the establishment of the plan of care. This patient will be followed by a physician who will periodically review the plan of care. Total Time Total Time Spent Total Time Spent (In Minutes): 55 Coding Level of Care Code 51220 INP/OBS DISCH >30 MIN Diagnoses Osteomyelitis of toe of right foot M86.9 Diabetic foot ulcer E10.621; L97.419 Diabetes mellitus type: type 1 Diabetic foot ulcer location: midfoot Laterality: right Non-pressure ulcer stage: unspecified non-pressure ulcer stage Murmur R01.1 Paroxysmal atrial fibrillation I48.0 S/P CABG x 3 Z95.1 Complex sleep apnea syndrome G47.31 Diabetes type 1, uncontrolled E10.65 Hypothyroidism E03.9 Hypertension I10 Anticoagulant long-term use Z79.01 Cellulitis L03.90 Time Spent (min) 55
--- NOTE | 2023-10-28 17:38 | Operative Report ---
Post Operative Report Pre & Post Diagnosis Operation Date: 10/07/23 07:00 Pre-Op Diagnosis: Diabetic infection of right foot, Infection of great toe, Osteomyelitis of toe of right foot, Diabetic foot ulcer Post-Op Diagnosis: Diabetic infection of right foot, Infection of great toe, Osteomyelitis of toe of right foot, Diabetic foot ulcer I identified the patient and participated in the time-out.: Yes Procedure Operation Date: 10/07/23 07:00 Actual Procedures p Right Hallux Incision and Drainage with bone biopsy(Right) - Dm Gilbert DPM Surgeon Dm Gilbert DPM Conference Center Manager None Estimated Blood Loss 3 Findings Consistent with Post-Op Diagnosis Specimens Distal phalanx bone was sent for pathology, culture and sensitivity Anesthesia Type MAC Complications none Disposition Accompanied Patient To Recovery: Yes Indications This patient is a recent hospital consult of mine who presented with acute osteomyelitis of the distal phalanx. We discussed that the definitive treatment for this is a hallux amputation, but he would like to attempt limb salvage primarily. We discussed that for this, a wound debridement with bone biopsy is beneficial for helping focus treatment and remove infectious burden. Relative risks, outcomes, preoperative instructions, postoperative instructions were discussed and consent was obtained for this right hallux incision and drainage. All questions were answered. Description of Procedure Patient was brought to the operating room placed on the operating table in the supine position. Following administration of IV sedation, local anesthesia was obtained utilizing 20 cc of half percent Marcaine and a local block fashion. The right lower extremity was scrubbed, prepped, and draped in the usual aseptic manner. No tourniquet was utilized due to the patient's vasculopathic status. Attention was directed to the right hallux where The ulceration was noted to the distal phalanx. The ulceration was incised utilizing a 15 blade down to the level of the distal phalanx. The phalanx was immediately noted underneath the wound with no jennifer purulence though the bone was softened. All purulent drainage was expressed and all necrotic nonviable tissue was excised and passed off to the back table. Per Diem samples of the bone and soft tissue were obtained for both pathology and culture testing. The ulceration was flushed with copious amounts of sterile saline and packed open. The toe was dressed with Xeroform gauze, 4 x 4 gauze, Kerlix, and an Regan wrap. The patient tolerated the procedure well and was transferred to the recovery room with vital signs stable and vascular status intact to the feet. Following postoperative monitoring, the patient will be given prescriptions and instructions were discussed with him prior to surgery and transferred back to the floor for further evaluation while inpatient. He will likely benefit from continued wound care and a wound care consult to help salvage this toe. I the right are all good I attest to the content of the Intraoperative Record and any orders documented therein. Any exceptions are noted below.
== END 2023-10-15 15:47 | disposition home health service (06) | DRG 623 ==
LOC: ED 10:04 → 3N 13:01 → SUATTDRO 13:01 → 3N 16:38

== ENCOUNTER 2023-11-12 12:15 | Inpatient (IN) ==
[2023-11-12 13:11] LABS: Basophils # (auto) 0.05 K/uL (0.00-0.20); Basophils % (auto) 0.5 %; Eosinophils # (auto) 0.18 K/uL (0.00-0.50); Eosinophils % (auto) 1.7 %; Hemoglobin 10.8 g/dl (14.0-18.0); Immature Granulocytes # (auto) 0.05 K/uL (0.01-0.20); Immature Granulocytes % (auto) 0.5 %; Lymphocytes # (auto) 0.63 K/uL (1.20-3.40); Mean Corpuscular Hemoglobin 30.1 pg (25.0-34.0); Mean Corpuscular Hgb Conc 32.7 g/dL (32.0-36.0); Mean Corpuscular Volume 91.9 fL (80.0-100.0); Mean Platelet Volume 9.9 fL (9.4-12.4); Monocytes # (auto) 0.93 K/uL (0.11-0.59); Monocytes % (auto) 8.8 %; Neutrophils % (auto) 82.5 %; Platelet Count 274 K/uL (130-400); RDW Coefficient of Variation 13.7 % (11.5-14.5); RDW Standard Deviation 46.7 fL (36.4-46.3); Red Blood Count 3.59 M/uL (4.70-6.10); White Blood Count 10.54 K/ul (4.8-10.8)
[2023-11-12 13:25] LABS: Albumin Globulin Ratio 1.1 (0.9-2); Albumin Level 3.8 gm/dl (3.4-5.0); BUN Creatinine Ratio 18.2 (10-20); Bilirubin,Total 0.9 mg/dl (0.2-1.0); Calcium 9.2 mg/dl (8.6-10.3); Creatinine Clr Calc Pharmacy 40.6 ml/min; Est GFR (Non-African American) 41.4 ml/min; Globulin 3.6 gm/dl (2.5-4.0); Magnesium 2.2 mg/dl (1.7-2.4); Potassium 4.3 mmol/L (3.5-5.1); Total Protein 7.4 gm/dl (6.0-8.3)
[2023-11-12 13:31] LABS: Troponin I High Sensitivity 16.9 pg/ml (0-20)
[2023-11-12 13:38] LABS: INR 1.9 (0.9-1.1); Partial Thromboplastin Ratio 1.2; Partial Thromboplastin Time 33 Seconds (21-31); Prothrombin Time 19.2 Seconds (9.0-12.0)
--- NOTE | 2023-11-12 13:41 | XRay Report ---
SINGLE VIEW CHEST CLINICAL HISTORY: Sepsis. FINDINGS: A PA chest radiograph is compared to study dated 12/02/2022. Correlation is made with chest CT dated 10/12/2017. A right sided PICC line is in place. The tip projects over the SVC. The patient is status post midline sternotomy. The heart is enlarged and noting atherosclerotic calcification of th e thoracic aorta. There is pulmonary vascular congestion. Chronic interstitial thickening is similar to previous. There is a moderate at least partially loculated left pleural effusion. There is a trace pleural effusions on the right. Airspace consolidation is seen at both lung bases. There is also air space consolidation in the right midlung.. No pneumothorax is seen. The skeletal structures are osteo penic. The bony thorax is grossly intact. Degenerative change is noted in the shoulders and spine. IMPRESSION: 1. Cardiomegaly with pulmonary vascular congestion. 2. Left larger than right pleural effusions with bilateral airspace consolidation. Correlate clinical ly for evidence of pneumonia/aspiration pneumonitis. Radiographic follow-up to resolution is recommen ded. ACT 112: Negative or not required by law. Electronically signed by: Jalen Taylor M.D. 11/12/2023 1:40 PM
--- NOTE | 2023-11-12 14:02 | Emergency Department Note ---
Impression & Plan SOB (shortness of breath), Osteomyelitis of toe of right foot, Bilateral pneumonia, CHF (congestive heart failure) ED Provider Note NAME: RADHA NINA AGE: 82 SEX: M : 1940 ARRIVES VIA: Ambulance INFORMANT: Patient, ED PROVIDER(S): Percy Espinal MD CHIEF COMPLAINT: Shortness of breath, abnormal lung sounds, outpatient referral MEDICAL DECISION MAKING: Patient presents due to concern for shortness of breath and crackles. The patient does have crackles and diminished breath sounds. IV was established and blood work was obtained. Patient's blood work shows a normal white count hemoglobin of 10.8 with a normal platelet count. The patient's kidney function with a creatinine 1.5. CRP is elevated troponin negative. The patient's procalcitonin negative bio fire negative. BNP is elevated which is added as the patient does have bilateral pleural effusions and does have bibasilar consolidation. Patient is currently on daptomycin. I did speak with pharmacy who agreed with continuing Rocephin and azithromycin. I did speak with the on- call medicine service after discussing the recommendations to the patient and family member who are comfortable with plan of care. Patient was admitted to medicine service by Dr. Nielson. Discussion w/ other healthcare providers: Dr. Nielson inpatient medicine service as well as Tameka Mike PA-C Prior /Outside records reviewed: None Differential diagnosis: Reactive airway disease, pneumonia, pneumothorax, COPD, CHF, ACS, pulmonary embolism, musculoskeletal, GERD as well as other pathologies were considered. Diagnostics, as interpreted by me: ECG: Sinus with first-degree AV block, prolonged OR, rate of 82, normal QRS, normal axis no ST elevations. Cardiac monitoring: An order was placed for continuous cardiac monitoring. The monitor shows a rate of 85 with sinus rhythm. Patient was placed on pulse oximetry Medical decision rules: Curb 65 score Imaging studies: I informally interpreted the patient's chest x-ray with pleural effusions and pneumonia with formal report to follow. HPI: Patient presents with family bedside due to concern for shortness of breath and associated cough it has been ongoing approximate 3 to 4 days. The patient states that is primarily nonproductive but occasionally will be with clear sputum. Patient denies any falls or trauma. The patient denies any chest pains but has had some shortness of breath which is chronic but worse. He does notice this with exertion. Home health did listen to the patient today and thought he had some crackles and thus referred him here for further evaluation and treatment. The patient does have home health as he is receiving daptomycin for chronic right great toe infection. Patient states that he has not had any significant issues recently with the toe. Patient was told though that if he does not have improvement that might require amputation. Patient does have some chronic left greater than right lower extremity edema but the patient did have a vein graft taken from the left leg since he had a CABG but this has been relatively unchanged. Patient states that he does take a daily weight and that he has been fairly stable. PAST MEDICAL HISTORY: See Below PAST SURGICAL HISTORY: See Below SOCIAL HISTORY: See Below HOME MEDICATIONS: See Below ALLERGIES: See Below VITALS: See Below PHYSICAL EXAMINATION: GENERAL: NAD, non-toxic. Wearing glasses EYE EXAM: Normal conjunctiva. PERRL, no anisocoria and EOM's grossly intact w/o pain. OROPHARYNX: Moist mucus membranes, grossly normal dentition. NECK: Trachea midline, no stridor. Supple, no nuchal rigidity, no adenopathy, non-tender. No signs of meningismus. FROM of the neck with good chin to chest and neck extension. LUNGS: Bibasilar crackles and decreased breath sounds at the left base. Normal chest wall mechanics. HEART: NSR, no MRG. ABDOMEN: Abdomen soft, non-tender, no masses, no rebound or guarding. BACK: No CVA TTP. SKIN: No rashes and no bruising. UPPER EXTREMITIES: Upper extremities are grossly normal. LOWER EXTREMITIES: Grossly normal, 1+ symmetric lower extremity edema without any calf pain erythema NEURO EXAM: A&O x3, cranial nerves II-XII grossly intact, normal speech, moves all 4 extremities. Past Med/Surg History Problem List (Updated 11/13/23 @ 11:14 by Percy Espinal MD) CHF (congestive heart failure) (Acute) Bilateral pneumonia (Acute) Acute CHF (congestive heart failure) Hospital-acquired pneumonia Diabetic ulcer of right great toe (Acute) Peripheral arterial disease (Chronic) Murmur Hyperglycemia due to type 1 diabetes mellitus (Acute) Diabetic infection of right foot (Acute) Infection of great toe (Acute) Osteomyelitis of toe of right foot (Acute) Cellulitis Diabetic foot ulcer (Acute) Trigger finger, right ring finger Lump of left thigh Aortic stenosis Paroxysmal atrial fibrillation S/P CABG x 3 Leg swelling Urinary retention Non-ST elevation (NSTEMI) myocardial infarction Multi-vessel coronary artery stenosis V-tach NSVT (nonsustained ventricular tachycardia) SOB (shortness of breath) (Acute) Atrial fibrillation with rapid ventricular response (Acute) Acute electrocardiogram changes (Acute) Acute hyperglycemia (Acute) Elevated troponin (Acute) Visual field defect (Chronic) Anticoagulant long-term use (Chronic) 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) CAD (coronary artery disease) (Chronic) Complex sleep apnea syndrome (Chronic) Dysphagia, oropharyngeal phase (Chronic) Factor V Leiden mutation (Chronic) Fatigue (Chronic) GERD without esophagitis (Chronic) Glaucoma (Chronic) Gout (Chronic) Hoarseness (Chronic) Hypothyroidism (Chronic) Insomnia (Chronic) Kidney disease, chronic, stage II (mild, 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) Left inguinal hernia (Chronic) Leukopenia (Chronic) Microscopic hematuria (Chronic) Nocturia (Chronic) Organic hypersomnia (Chronic) Proteinuria (Chronic) Vertebral artery stenosis/occlusion (Chronic) Dyslipidemia (Chronic) Nocturnal hypoxemia (Chronic) Hypertension (Chronic) Carotid stenosis, left (Chronic) Right rotator cuff tear (Chronic) Strain of left rotator cuff capsule 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) History of diabetic ulcer of foot Background diabetic retinopathy associated with type 1 diabetes mellitus (Chronic) 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 (Chronic) 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) Diabetes type 1, uncontrolled (Chronic) Gait abnormality Falls frequently Chronic fatigue disorder Vitamin B 12 deficiency Orthostasis Positional vertigo Dysarthria Expressive aphasia (Acute) History of non-ST elevation myocardial infarction (NSTEMI) History of CVA (cerebrovascular accident) Vitamin D deficiency CKD (chronic kidney disease) Anti-cardiolipin antibody positive (Chronic) Medical History Alcohol abuse Vitamin D deficiency Primary hypercoagulable state Surgical History History of surgical removal of ganglion cyst History of hydrocelectomy History of hand surgery S/P coronary artery stent placement H/O hernia repair Hx of appendectomy Family History Mother , in her 60s of heart disease COPD (chronic obstructive pulmonary disease) Coronary heart disease Heart disease CHF Diabetes Hypertension Father , age 62 of melanoma Melanoma Heart disease Hypertension Brother Coronary heart disease Hypertension Myocardial infarction Son Diabetes Denies family history of Ovarian cancer Prostate cancer Breast cancer Lung cancer Colorectal cancer Stroke Social History Smoking Status: Never smoker Second Hand Exposure: Yes (As a child, parents smoked); Do You Dip or Chew Tobacco: No; Hx Alcohol Use: No Hx Substance Use: No Preferred Language: German Communication Ability: Effective Communication Ability Comment: expressive and receptive aphasia Visual Impairment: No Limitations Hearing Ability: Normal Hris Developer Required: No Beliefs That Will Affect Care: Pentecostal marital status: Current Living Situation: Spouse current occupational status: retired 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 Penicillins Allergy Intermediate Hives Verified 11/10/23 11:17 Sulfa (Sulfonamide Allergy Intermediate HIVES Verified 11/10/23 11:17 Antibiotics) cashew nut Allergy Unknown Unknown Verified 11/10/23 11:17 peanut Allergy Unknown Unknown Verified 11/10/23 11:17 Home Meds Home Medications Medication Instructions Recorded Confirmed multivitamin 1 tab PO QDL ##0 11/28/08 11/12/23 magnesium 250 mg tablet 250 mg PO QDL ##0 01/19/17 11/12/23 fluticasone propionate 50 2 sprays intranasal DAILY PRN 01/10/19 11/12/23 mcg/actuation nasal Nasal Congestion spray,suspension lutein 20 mg capsule 20 mg PO QDL 01/10/19 11/12/23 thiamine HCl (vitamin B1) 100 mg 100 mg PO QDL 01/10/19 11/12/23 tablet aspirin 81 mg tablet,delayed 81 mg PO QAM 11/10/19 11/12/23 release cholecalciferol (vitamin D3) 50 50 mcg PO DAILY 07/31/20 11/12/23 mcg (2,000 unit) capsule polyethylene glycol 3350 17 17 g PO DAILY 12/01/21 11/12/23 gram/dose oral powder (Miralax) folic acid 1 mg tablet 1 mg PO DAILY 12/02/22 11/12/23 doxazosin 2 mg tablet 2 mg PO DAILY 09/08/23 11/12/23 Previous Rx's Medication Instructions Recorded acetone (urine) test (Ketone Urine #50 ea 08/05/21 Test strips) FreeStyle Anna 2 Sensor (flash #2 ea 11/27/21 glucose sensor) levothyroxine 25 mcg tablet 25 mcg PO QAM #90 tabs 05/18/22 azelastine 137 mcg (0.1 %) nasal 1 spray intranasal BID #90 mL 08/20/22 spray aerosol torsemide 20 mg tablet 20 mg PO QAM #90 tabs 02/04/23 finasteride 5 mg tablet 5 mg PO DAILY #90 tabs 03/04/23 warfarin 5 mg tablet See Rx Instructions PO .COMPLEX 04/02/23 #90 tabs metoprolol tartrate 25 mg tablet 25 mg PO BID #180 tabs 06/21/23 nitroglycerin 0.4 mg sublingual 0.4 mg sublingual UD PRN Chest 06/21/23 tablet (Nitrostat) Pain #100 tabs glucagon HCl 1 mg solution for 1 mg subcut Q20M PRN hypoglycemia 06/28/23 injection (Glucagon (HCl) #1 ea Emergency Kit) isosorbide mononitrate 30 mg 30 mg PO DAILY #90 tabs 07/16/23 tablet,extended release 24 hr pen needle, diabetic 31 gauge x #200 ea 09/08/2306/10" (Comfort EZ Pen [place]) insulin lispro 100 unit/mL See Rx Instructions subcut TID #95 09/28/23 subcutaneous pen (Humalog KwikPen mL (U-100) Insulin) daptomycin 500 mg/50 mL in 0.9 % 660 mg (66 mL) IV DAILY 10/12/23 sodium chloride intravenous piggyback insulin glargine U-300 conc 300 25 unit (0.0833 mL) subcut DAILY 10/25/23 unit/mL (1.5 mL) subcutaneous pen #9 mL (Toujeo SoloStar U-300 Insulin) blood sugar diagnostic (OneTouch #180 ea 11/09/23 Verio test strips) blood-glucose meter (OneTouch #1 ea 11/09/23 Verio Flex Meter) Results & Data (ED) Vital Signs Vital Signs - 24 hr 11/12/23 12:25 11/12/23 15:07 11/12/23 16:54 Temperature 36.5 C Temperature Source Oral Pulse Rate 80 Pulse Rate [Apical] 86 82 Respiratory Rate 16 18 18 Respiratory Effort / Characteristics Non-Labored Respiratory Depth Normal Blood Pressure 142/53 H Blood Pressure [Left Arm] 102/71 134/98 Blood Pressure Mean 82 Blood Pressure Mean [Left Arm] 81 110 Pulse Oximetry 96 95 94 Oxygen Delivery Method Room Air Room Air Sepsis Recent Fever Within 48 Hours No Sepsis New/Unexplained Change in Mental Status N/A Sepsis Action Taken by Nursing No Action Required Home Medications Current Medication List: was personally reviewed by me Laboratory Data Attestation: I reviewed the patient's lab results. 11/13/23 07:16 11/13/23 07:16 Lab Results 11/12/23 11/12/23 11/12/23 Range/Units 12:50 15:07 15:47 WBC 10.54 (4.8-10.8) K/ul RBC 3.59 L (4.70-6.10) M/uL Hgb 10.8 L (14.0-18.0) g/dl Hct 33.0 L (42.0-52.0) % MCV 91.9 (80.0-100.0) fL MCH 30.1 (25.0-34.0) pg MCHC 32.7 (32.0-36.0) g/dL RDW Std Deviation 46.7 H (36.4-46.3) fL RDW Coeff of Mary 13.7 (11.5-14.5) % Plt Count 274 (130-400) K/uL MPV 9.9 (9.4-12.4) fL Immature Gran % (Auto) 0.5 % Neut % (Auto) 82.5 % Lymph % (Auto) 6.0 % Barnes % (Auto) 8.8 % Eos % (Auto) 1.7 % Baso % (Auto) 0.5 % Neut # (Auto) 8.70 H (1.40-6.50) K/uL Lymph # (Auto) 0.63 L (1.20-3.40) K/uL Barnes # (Auto) 0.93 H (0.11-0.59) K/uL Eos # (Auto) 0.18 (0.00-0.50) K/uL Baso # (Auto) 0.05 (0.00-0.20) K/uL Immature Gran # (Auto) 0.05 (0.01-0.20) K/uL PT 19.2 H (9.0-12.0) Seconds INR 1.9 H (0.9-1.1) APTT 33 H (21-31) Seconds PTT Ratio 1.2 Sodium 134 L (136-145) mmol/L Potassium 4.3 (3.5-5.1) mmol/L Chloride 101 (98-107) mmol/L Carbon Dioxide 26 (21-32) mmol/L Anion Gap 7 (3-11) BUN 28 H (6-23) mg/dl Creatinine 1.54 H (0.6-1.4) mg/dl Est Cr Clr Drug Dosing 40.6 ml/min Est GFR ( Amer) 48.0 ml/min Est GFR (Non-Af Amer) 41.4 ml/min BUN/Creatinine Ratio 18.2 (10-20) Glucose 177 H (70-99(Fasting)) mg/dl Lactate 1.5 (0.4-2.0) mmol/L Calcium 9.2 (8.6-10.3) mg/dl Magnesium 2.2 (1.7-2.4) mg/dl Total Bilirubin 0.9 (0.2-1.0) mg/dl AST 40 H (13-39) U/L ALT 42 (7-52) U/L Alkaline Phosphatase 71 (34-104) U/L Troponin I High Sens 16.9 (0-20) pg/ml C-Reactive Protein 17.19 H (0-0.5) mg/dl B-Natriuretic Peptide 517 H (0-100) pg/ml Total Protein 7.4 (6.0-8.3) gm/dl Albumin 3.8 (3.4-5.0) gm/dl Globulin 3.6 (2.5-4.0) gm/dl Albumin/Globulin Ratio 1.1 (0.9-2) Procalcitonin 0.23 (0-0.5) ng/ml Adenovirus (PCR) Not Detected (NotDetected) B. pertussis DNA (PCR) Not Detected (NotDetected) B.parapertussis DNA PCR Not Detected (NotDetected) C. pneumoniae DNA (PCR) Not Detected (NotDetected) Coronavirus OC43 (PCR) Not Detected (NotDetected) Coronavirus HKU1 (PCR) Not Detected (NotDetected) Coronavirus 229E (PCR) Not Detected (NotDetected) SARS-CoV-2 (PCR) Not Detected (NotDetected) Coronavirus NL63 (PCR) Not Detected (NotDetected) Human Metapneumovir PCR Not Detected (NotDetected) Influenza Type A (PCR) Not Detected (NotDetected) Influenza Type B (PCR) Not Detected (NotDetected) M. pneumoniae (PCR) Not Detected (NotDetected) Parainfluenza 1 (PCR) Not Detected (NotDetected) Parainfluenza 2 (PCR) Not Detected (NotDetected) Parainfluenza 3 (PCR) Not Detected (NotDetected) Parainfluenza 4 (PCR) Not Detected (NotDetected) RSV (PCR) Not Detected (NotDetected) Entero/Rhino (PCR) Not Detected (NotDetected) Administered Medications Albuterol (Albut/Ipratrop 3mg/0.5mg Neb 3 Ml Vial) [address] [facility]; Protocol Stop: 12/12/23 19:42 Last Admin: 11/13/23 10:51 Dose: 3 ml Documented By: Admin: 11/13/23 07:06 Dose: 3 ml Documented By: Admin: 11/12/23 20:45 Dose: 3 ml Documented By: KEERTHI Aspirin (Aspirin 81 Mg Ectab) 81 mg PO [facility] Stop: 12/13/23 08:59 Last Admin: 11/13/23 08:46 Dose: 81 mg Documented By: RAJENDRA Finasteride (Finasteride 5 Mg Tab) 5 mg PO DAILY [facility] Stop: 12/13/23 08:59 Last Admin: 11/13/23 08:46 Dose: 5 mg Documented By: RAJENDRA Fluticasone Propionate (Fluticasone Propionate Na Spr 16 Gm Btl) 2 sprays NA DAILY PENNY Stop: 12/13/23 08:59 Last Admin: 11/13/23 08:46 Dose: 2 sprays Documented By: RAJENDRA Folic Acid (Folic Acid 1 Mg Tab) 1 mg PO DAILY [facility]ENNY Stop: 12/13/23 08:59 Last Admin: 11/13/23 08:46 Dose: 1 mg Documented By: RAJENDRA Guaifenesin (Guaifenesin 600 Mg Tabcr) 600 mg PO Q12 [facility] Stop: 12/12/23 20:59 Last Admin: 11/13/23 08:46 Dose: 600 mg Documented By: Admin: 11/12/23 21:05 Dose: 600 mg Documented By: SOCORRO Cefepime HCl 2,000 mg/ Syringe 20 mls @ 5 mls/min IV Q12H [facility]EN[facility]; Protocol Stop: 11/20/23 00:00 Last Admin: 11/13/23 01:22 Dose: 5 mls/min Documented By: FLYNN Daptomycin 650 mg/ Syringe 13 mls @ 6.5 mls/min IV DAILY PENNY; Protocol Stop: 12/25/23 08:59 Last Admin: 11/13/23 08:45 Dose: 6.5 mls/min Documented By: RAJENDRA Insulin Aspart (Insulin Aspart Per Unit Charge) 0 units SC ACHS [facility] Stop: 12/12/23 20:59 Last Admin: 11/13/23 08:51 Dose: 6 units Documented By: RAJENDRA Co-signed By: DEONTE(2) Admin: 11/12/23 21:01 Dose: 8 units Documented By: SOCORRO Co-signed By: RANJITH Insulin Glargine (Lantus Per Unit Charge) 25 units SQ DAILY PENNY Stop: 12/13/23 08:59 Last Admin: 11/13/23 08:50 Dose: 25 units Documented By: RAJENDRA Co-signed By: DEONTE(2) Isosorbide Mononitrate (Isosorbide Barnes Extended Rel 30 Mg Tabcr) 30 mg PO DAILY [facility] Stop: 12/13/23 08:59 Last Admin: 11/13/23 08:46 Dose: 30 mg Documented By: RAJENDRA Levothyroxine Sodium (Levothyroxine Sodium 25 Mcg Tablet) 25 mcg PO DAILYBB [facility] Stop: 12/13/23 06:29 Last Admin: 11/13/23 06:10 Dose: 25 mcg Documented By: FLYNN Metoprolol Tartrate (Metoprolol Tartrate 25 Mg Tab) 25 mg PO BID [facility] Stop: 12/12/23 20:59 Last Admin: 11/13/23 08:45 Dose: 25 mg Documented By: Admin: 11/12/23 21:05 Dose: 25 mg Documented By: SOCORRO Polyethylene Glycol (Polyethylene (Miralax) 17 Gm Pack) 17 gm PO DAILY [facility] Stop: 12/13/23 08:59 Last Admin: 11/13/23 08:50 Dose: 17 gm Documented By: RAJENDRA Warfarin Sodium (Warfarin Sod 5 Mg Tab) 5 mg PO DAILY@1600 [facility] Stop: 12/12/23 19:42 Last Admin: 11/12/23 20:37 Dose: 5 mg Documented By: SOCORRO Discontinued Medications Azithromycin (Azithromycin 250 Mg Tab) 500 mg PO NOW ONE Stop: 11/12/23 15:07 Last Admin: 11/12/23 16:48 Dose: 500 mg Documented By: KAREEM Furosemide (Furosemide 40 Mg/4 Ml Vial) 40 mg IV ONE ONE Stop: 11/12/23 17:14 Last Admin: 11/12/23 17:27 Dose: 40 mg Documented By: KAREEM Ceftriaxone Sodium (Rocephin) 2,000 mg in 50 mls @ 100 mls/hr IV NOW ONE Stop: 11/12/23 16:14 Last Infusion: 11/12/23 16:38 Dose: Infused Documented By: Admin: 11/12/23 16:07 Dose: 100 mls/hr Documented By: KAREEM Imaging Data Radiologist's Impression: Chest X-Ray 11/12/23 12:30 SINGLE VIEW CHEST CLINICAL HISTORY: Sepsis. FINDINGS: A PA chest radiograph is compared to study dated 12/02/2022. Correlation is made with chest CT dated 10/12/2017. A right sided PICC line is in place. The tip projects over the SVC. The patient is status post midline sternotomy. The heart is enlarged and noting atherosclerotic calcification of the thoracic aorta. There is pulmonary vascular congestion. Chronic interstitial thickening is similar to previous. There is a moderate at least partially loculated left pleural effusion. There is a trace pleural effusions on the right. Airspace consolidation is seen at both lung bases. There is also airspace consolidation in the right midlung.. No pneumothorax is seen. The skeletal structures are osteopenic. The bony thorax is grossly intact. Degenerative change is noted in the shoulders and spine. IMPRESSION: 1. Cardiomegaly with pulmonary vascular congestion. 2. Left larger than right pleural effusions with bilateral airspace consolidation. Correlate clinically for evidence of pneumonia/aspiration pneumonitis. Radiographic follow-up to resolution is recommended. ACT 112: Negative or not required by law. Electronically signed by: Jalen Taylor M.D. 11/12/2023 1:40 PM Discharge Plan Visit Data Chief Complaint: Toe Injury/Pain Stated Complaint: Possible Toe Infection ED Provider: Percy Espinal Discharge Problem: SOB (shortness of breath), Osteomyelitis of toe of right foot, Bilateral pneumonia, CHF (congestive heart failure) Patient Disposition: Admitted As Inpatient Discharge Instructions Interventions: ED Discharge Assessment Last Done: 11/12/23 18:24 Discharge Problem: Bilateral pneumonia Qualifiers: Pneumonia type: due to unspecified organism Lung location: lower lobe of lung Q ualified Code(s): J18.9 - Pneumonia, unspecified organism CHF (congestive heart failure) Qualifiers: Heart failure type: unspecified Heart failure chronicity: unspecified Qualified Code(s): I50.9 - Heart failure, unspecified
[2023-11-12 14:27] LABS: C Reactive Protein 17.19 mg/dl (0-0.5)
[2023-11-12] MEDS: cefTRIAXone SODIUM 2,000 MG/50 ML BAG IV ONE (16:07)
[2023-11-12 16:09] LABS: Adenovirus PCR Not Detected (NotDetected); Bordetella parapertussis PCR Not Detected (NotDetected); Bordetella pertussis PCR Not Detected (NotDetected); Chlamydia pneumoniae PCR Not Detected (NotDetected); Coronavirus 229E PCR Not Detected (NotDetected); Coronavirus CoV-2 (COVID19)PCR Not Detected (NotDetected); Coronavirus HKU1 PCR Not Detected (NotDetected); Coronavirus NL63 PCR Not Detected (NotDetected); Coronavirus OC43PCR Not Detected (NotDetected); Human Metapneumovirus PCR Not Detected (NotDetected); Influenza A PCR Not Detected (NotDetected); Influenza B PCR Not Detected (NotDetected); Mycoplasma pneumoniae PCR Not Detected (NotDetected); Parainfluenza Virus 1 PCR Not Detected (NotDetected); Parainfluenza Virus 2 PCR Not Detected (NotDetected); Parainfluenza Virus 3 PCR Not Detected (NotDetected); Parainfluenza Virus 4 PCR Not Detected (NotDetected); Respiratory Syncytial VirusPCR Not Detected (NotDetected); Rhinovirus/Enterovirus PCR Not Detected (NotDetected)
[2023-11-12] MEDS: AZITHROMYCIN 250 MG TAB PO ONE (16:48)
[2023-11-12] MEDS ORDERED: POLYETHYLENE (MIRALAX) 17 GM PACK PO PRN (17:08)
[2023-11-12] MEDS ORDERED: MAGNESIUM HYDROXIDE SUSP 30 ML UDC PO PRN (17:08)
[2023-11-12] MEDS ORDERED: GLUCAGON FOR INJ 1 MG VIAL SQ PRN (17:08)
[2023-11-12] MEDS ORDERED: ONDANSETRON INJ 2 MG/ML 2 ML VIAL IV PRN (17:08)
[2023-11-12] MEDS ORDERED: DEXTROSE 50% 50 ML SYRINGE IV PRN (17:08)
[2023-11-12] MEDS ORDERED: ACETAMINOPHEN 325 MG TAB PO PRN (17:08)
[2023-11-12] MEDS ORDERED: CARBOHYDRATES FOR HYPOGLYCEMIA PO PRN (17:08)
[2023-11-12] MEDS ORDERED: GLUCOSE 10 TAB/TUBE PO PRN (17:08)
[2023-11-12] MEDS ORDERED: ALUMINUM/MAGNESIUM SUSP 30 ML UDC PO PRN (17:08)
[2023-11-12] MEDS ORDERED: MELATONIN 3 MG TAB PO PRN (17:08)
[2023-11-12] MEDS ORDERED: GLUCOSE 40% GEL 15 GM TUBE PO PRN (17:08)
[2023-11-12] MEDS: FUROSEMIDE 40 MG/4 ML VIAL IV ONE (17:27)
--- NOTE | 2023-11-12 17:29 | History & Physical Report ---
Date of Service November 12, 2023 Assessment & Plan (1) Hospital-acquired pneumonia: Plan: Acute/stable - Observation to med/surg - Cover for hospital acquired pneumonia with Cefepime (renally dosed) and continue Daptomycin - Blood cultures x2 sets - Labs reviewed, no leukocytosis. CBC w/ diff and CMP in AM - MRSA screen ordered/pending - Duonebs QID scheduled, q2 prn dyspnea/wheezing and Mucinex 600mg BID - O2 PRN to maintain pulse ox >90% (2) Acute CHF (congestive heart failure): Plan: Acute/unstable - Echocardiogram is UTD, last done in October 2023, preserved EF - Bilateral pleural effusions R>L and PVC noted on CXR - Dose of Lasix 40mg IV x1 and hold his Torsemide - BNP elevated at 517 - Daily weights and monitor I/O q shift (3) Osteomyelitis of toe of right foot: Plan: Acute/stable - Currently on treatment with daily Daptomycin 660mg IV, continue with next dose on 11/12 - CRP elevated at 17, likely combo of OM and pneumonia, will trend in AM - vice president for instruction consult, appreciate assistance (4) Paroxysmal atrial fibrillation: Plan: Chronic/stable - Rate controlled - Continue Lopressor 25mg BID - Continue Coumadin 5mg daily @ 1600, check PT/INR in AM (5) Factor V Leiden mutation: Plan: Chronic/stable - Continue Coumadin 5mg as noted above, PT/INR in AM (6) CAD (coronary artery disease): Plan: Chronic/stable - No chest pain - Check HS trop (7) Hypothyroidism: Plan: Chronic/stable - Check TSH - Continue Levothyroxine (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 Nielson who will also see and evaluate this patient. Further orders as warranted. PT/OT eval and treat. This encounter took 77 minutes including the face to face, thorough chart review including medication reconciliation, and documentation in EHR. History of Present Illness Chief Complaint: Dyspnea and cough Primary Care Provider: Guilherme Moe, DO Sheng Cagle is an 82 yo M with a pmhx of DMT1, PAF, , PAD, CAD, h/o dysphagia, CKD, Factor V Leiden on chronic Coumadin therapy, and most recently is currently being treated for a right great toe osteomyelitis with IV Daptomycin x6 weeks who presents to the ER c/o increased dyspnea and cough over the past 4-5 days. Yesterday, reported low grade fever. Dyspnea is not aggravated by exertion. 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 He denies chest pain, orthopnea, or PND. He denies feeling dizzy or lightheaded, or having palpitations. He has issues with chronic incontinence. He denies n/v/d. Family was concerned about possible spread of infection to his bloodstream but he has been on the Daptomycin now for about 4 weeks. He is currently afebrile in the ER. His last echocardiogram was in October of this year with preserved EF. His ER w/u demonstrates a normal wbc count, afebrile, normotensive and controlled HR. His renal function is at baseline, no electrolyte abnormalities. EKG nonacute. His CXR demonstrates cardiomegaly with PVC, L>R pleural effusions and bilateral airspace opacities. He was medicated with a dose of Rocephin and Azithromycin and has been referred for admission. Allergies Allergy/AdvReac Type Severity Reaction Status Date / Time clindamycin Allergy Intermediate Rash Verified 11/10/23 11:17 lisinopril Allergy Intermediate falling Verified 11/10/23 11:17 down ? Penicillins Allergy Intermediate Hives Verified 11/10/23 11:17 Sulfa (Sulfonamide Allergy Intermediate HIVES Verified 11/10/23 11:17 Antibiotics) cashew nut Allergy Unknown Unknown Verified 11/10/23 11:17 peanut Allergy Unknown Unknown Verified 11/10/23 11:17 Home Medications Medication Instructions Recorded Confirmed Type multivitamin 1 tab PO QDL ##0 11/28/11/12/23 History magnesium 250 mg tablet 250 mg PO QDL ##0 01/19/17 11/12/23 History fluticasone propionate 50 2 sprays intranasal DAILY PRN 01/10/19 11/12/23 History mcg/actuation nasal Nasal Congestion spray,suspension lutein 20 mg capsule 20 mg PO QDL 01/10/19 11/12/23 History thiamine HCl (vitamin B1) 100 mg 100 mg PO QDL 01/10/19 11/12/23 History tablet aspirin 81 mg tablet,delayed 81 mg PO QAM 11/10/19 11/12/23 History release cholecalciferol (vitamin D3) 50 50 mcg PO DAILY 07/31/20 11/12/23 History mcg (2,000 unit) capsule acetone (urine) test (Ketone Urine #50 ea 08/05/21 11/12/23 Rx Test strips) FreeStyle Anna 2 Sensor (flash #2 ea 11/27/21 11/12/23 Rx glucose sensor) polyethylene glycol 3350 17 17 g PO DAILY 12/01/21 11/12/23 History gram/dose oral powder (Miralax) levothyroxine 25 mcg tablet 25 mcg PO QAM #90 tabs 05/18/22 11/12/23 Rx azelastine 137 mcg (0.1 %) nasal 1 spray intranasal BID #90 mL 08/20/22 11/12/23 Rx spray aerosol folic acid 1 mg tablet 1 mg PO DAILY 12/02/22 11/12/23 History torsemide 20 mg tablet 20 mg PO QAM #90 tabs 02/04/23 11/12/23 Rx finasteride 5 mg tablet 5 mg PO DAILY #90 tabs 03/04/23 11/12/23 Rx warfarin 5 mg tablet See Rx Instructions PO .COMPLEX 04/02/23 11/12/23 Rx #90 tabs metoprolol tartrate 25 mg tablet 25 mg PO BID #180 tabs 06/21/23 11/12/23 Rx nitroglycerin 0.4 mg sublingual 0.4 mg sublingual UD PRN Chest 06/21/23 11/12/23 Rx tablet (Nitrostat) Pain #100 tabs glucagon HCl 1 mg solution for 1 mg subcut Q20M PRN hypoglycemia 06/28/23 11/12/23 Rx injection (Glucagon (HCl) #1 ea Emergency Kit) isosorbide mononitrate 30 mg 30 mg PO DAILY #90 tabs 07/16/23 11/12/23 Rx tablet,extended release 24 hr doxazosin 2 mg tablet 2 mg PO DAILY 09/08/23 11/12/23 History pen needle, diabetic 31 gauge x #200 ea 09/08/23 11/12/23 Rx 1/4" (Comfort EZ Pen [place]) insulin lispro 100 unit/mL See Rx Instructions subcut TID #95 04/23/24 06/07/24 Rx subcutaneous pen (Humalog KwikPen mL (U-100) Insulin) daptomycin 500 mg/50 mL in 0.9 % 660 mg (66 mL) IV DAILY 10/12/23 11/12/23 Rx sodium chloride intravenous piggyback insulin glargine U-300 conc 300 25 unit (0.0833 mL) subcut DAILY 10/25/23 11/12/23 Rx unit/mL (1.5 mL) subcutaneous pen #9 mL (Toujeo SoloStar U-300 Insulin) blood sugar diagnostic (OneTouch #180 ea 11/09/23 11/12/23 Rx Verio test strips) blood-glucose meter (OneTouch #1 ea 11/09/23 11/12/23 Rx Verio Flex Meter) Past Med/Surg History Problem List (Updated 11/12/23 @ 17:44 by Maria Mike PA-C) Acute CHF (congestive heart failure) Hospital-acquired pneumonia Diabetic ulcer of right great toe (Acute) Peripheral arterial disease (Chronic) Murmur Hyperglycemia due to type 1 diabetes mellitus (Acute) Diabetic infection of right foot (Acute) Infection of great toe (Acute) Osteomyelitis of toe of right foot (Acute) Cellulitis Diabetic foot ulcer (Acute) Trigger finger, right ring finger Lump of left thigh Aortic stenosis Paroxysmal atrial fibrillation S/P CABG x 3 Leg swelling Urinary retention Non-ST elevation (NSTEMI) myocardial infarction Multi-vessel coronary artery stenosis V-tach NSVT (nonsustained ventricular tachycardia) SOB (shortness of breath) (Acute) Atrial fibrillation with rapid ventricular response (Acute) Acute electrocardiogram changes (Acute) Acute hyperglycemia (Acute) Elevated troponin (Acute) Visual field defect (Chronic) Anticoagulant long-term use (Chronic) 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) CAD (coronary artery disease) (Chronic) Complex sleep apnea syndrome (Chronic) Dysphagia, oropharyngeal phase (Chronic) Factor V Leiden mutation (Chronic) Fatigue (Chronic) GERD without esophagitis (Chronic) Glaucoma (Chronic) Gout (Chronic) Hoarseness (Chronic) Hypothyroidism (Chronic) Insomnia (Chronic) Kidney disease, chronic, stage II (mild, 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) Left inguinal hernia (Chronic) Leukopenia (Chronic) Microscopic hematuria (Chronic) Nocturia (Chronic) Organic hypersomnia (Chronic) Proteinuria (Chronic) Vertebral artery stenosis/occlusion (Chronic) Dyslipidemia (Chronic) Nocturnal hypoxemia (Chronic) Hypertension (Chronic) Carotid stenosis, left (Chronic) Right rotator cuff tear (Chronic) Strain of left rotator cuff capsule 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) History of diabetic ulcer of foot Background diabetic retinopathy associated with type 1 diabetes mellitus (Chronic) 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 (Chronic) 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) Diabetes type 1, uncontrolled (Chronic) Gait abnormality Falls frequently Chronic fatigue disorder Vitamin B 12 deficiency Orthostasis Positional vertigo Dysarthria Expressive aphasia (Acute) History of non-ST elevation myocardial infarction (NSTEMI) History of CVA (cerebrovascular accident) Vitamin D deficiency CKD (chronic kidney disease) Anti-cardiolipin antibody positive (Chronic) Medical History Aortic stenosis Urinary retention Paroxysmal atrial fibrillation History of CVA (cerebrovascular accident) Type 1 diabetes mellitus with complications Alcohol abuse Vitamin D deficiency Proteinuria Primary hypercoagulable state Organic hypersomnia Leukopenia Left inguinal hernia Kidney disease, chronic, stage II (mild, 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) Insomnia Hoarseness Factor V Leiden mutation Dysphagia, oropharyngeal phase Complex sleep apnea syndrome CAD (coronary artery disease) Ascending aorta dilation Anticoagulant long-term use Anti-cardiolipin antibody positive Surgical History S/P CABG x 3 History of surgical removal of ganglion cyst History of hydrocelectomy History of hand surgery S/P coronary artery stent placement H/O hernia repair Hx of appendectomy Family History Mother , in her 60s of heart disease COPD (chronic obstructive pulmonary disease) Coronary heart disease Heart disease CHF Diabetes Hypertension Father , age 62 of melanoma Melanoma Heart disease Hypertension Brother Coronary heart disease Hypertension Myocardial infarction Son Diabetes Denies family history of Ovarian cancer Prostate cancer Breast cancer Lung cancer Colorectal cancer Stroke Social History Smoking Status: Never smoker Second Hand Exposure: Yes (As a child, parents smoked); Do You Dip or Chew Tobacco: No; Hx Alcohol Use: No Hx Substance Use: No Preferred Language: [place] Communication Ability: Effective Communication Ability Comment: expressive and receptive aphasia Visual Impairment: No Limitations Hearing Ability: Normal 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 Required: No Beliefs That Will Affect Care: Spiritism marital status: Current Living Situation: Spouse current occupational status: retired 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 Denies fever, chills, fatigue, headache, nasal congestion, sore throat, cough, chest pain, palpitations, orthopnea, PND, abdominal pain, n/v/d, constipation, dysuria, hematuria, frequency, back pain, joint pain or swelling, easy bruising or bleeding, skin lesions or rashes. Physical Exam 2 Physical Exam: GENERAL: 82 yo Well-developed, well-nourished elderly M. NAD. EYES: EOMI. PERRLA. Anicteric. HENT: Moist mucous membranes. No scleral icterus. No cervical lymphadenopathy. LUNGS: Nonlabored. Diminished in the bases bilaterally. No wheezes, rales, or rhonchi appreciated. CARDIOVASCULAR: S1, S2 irregular with 3/6 LEFTY. No g/r. ABDOMEN: Soft, non-tender and non-distended. No palpable masses. Bowel sounds normoactive x 4 quad. EXTREMITIES: +1 pitting edema in LLE. RLE w/o edema. Non-tender. Peripheral pulses +2/4. NEUROLOGIC: A&O x3. No focal neurological deficits. CN II-XII grossly intact. PSYCHIATRIC: Cooperative. Appropriate mood and affect. SKIN: Warm, dry, intact. No rashes or lesions. Results & Data Results & Data Vital Signs (Past 12 Hours) Vital Signs Temp Pulse Pulse Resp BP BP Pulse Ox 11/12/23 16:54 82 18 134/98 94 11/12/23 15:07 86 18 102/71 95 11/12/23 12:25 36.5 C 80 16 142/53 H 96 O2 Del Method 06/07/24 16:54 11/12/23 15:07 Room Air 11/12/23 12:25 Room Air Laboratory Results 11/12/23 12:50 11/12/23 12:50 Diagnostic Findings Chest X-Ray 11/12/23 12:30 SINGLE VIEW CHEST CLINICAL HISTORY: Sepsis. FINDINGS: A PA chest radiograph is compared to study dated 12/02/2022. Correlation is made with chest CT dated 10/12/2017. A right sided PICC line is in place. The tip projects over the SVC. The patient is status post midline sternotomy. The heart is enlarged and noting atherosclerotic calcification of the thoracic aorta. There is pulmonary vascular congestion. Chronic interstitial thickening is similar to previous. There is a moderate at least partially loculated left pleural effusion. There is a trace pleural effusions on the right. Airspace consolidation is seen at both lung bases. There is also airspace consolidation in the right midlung.. No pneumothorax is seen. The skeletal structures are osteopenic. The bony thorax is grossly intact. Degenerative change is noted in the shoulders and spine. IMPRESSION: 1. Cardiomegaly with pulmonary vascular congestion. 2. Left larger than right pleural effusions with bilateral airspace consolidation. Correlate clinically for evidence of pneumonia/aspiration pneumonitis. Radiographic follow-up to resolution is recommended. ACT 112: Negative or not required by law. Electronically signed by: Jalen Taylor M.D. 11/12/2023 1:40 PM Code Status & VTE Plan Code Status Discussed with patient and his at bedside, conditional code with limited interventions. Supervising Physician Co-Signing Physician Notes Patient seen and examined, chart reviewed, case discussed with Tameka Mike PA-C and I agree with the assessment and plan as above except as otherwise noted Labs and images reviewed 82-year-old male with history of diabetic foot infection who is currently to treat with osteomyelitis but who with presents with shortness of breath, bilateral pleural effusions, and suspected pneumonia. He has had recent hospital exposure and has been admitted for treatment of hospital associated pneumonia. Patient has been admitted on cefepime/daptomycin, blood cultures are pending. Sputum culture added. Hemodynamically stable at the bedside. Lungs are diminished but without rales/rhonchi on assessment. Agree with above. PG Care Time/CCT Total # of Minutes Spent Total Time Spent with Patient: Total time spent is greater than 50% in coordination of care (as documented) at patient's floor/unit and/or counseling patient: Coding Level of Care Code 33152 INT INP/OBS CARE 375MIN Diagnoses Hospital-acquired pneumonia J18.9; Y95 Acute CHF (congestive heart failure) I50.9 Osteomyelitis of toe of right foot M86.9 Paroxysmal atrial fibrillation I48.0 Factor V Leiden mutation D68.51 Coronary artery disease involving [place] coronary artery of [place] heart without angina pectoris I25.10 Associated angina: without angina Coronary Disease-Associated Artery/Lesion type: [place] artery [place] vs. transplanted heart: [place] heart Hypothyroidism E03.9 Type 1 diabetes mellitus with complications E10.8 (6) CAD (coronary artery disease) Associated angina: without angina Coronary Disease-Associated Artery/Lesion type: [place] artery [place] vs. transplanted heart: [place] heart Qualified Code(s): I25.10 - Atherosclerotic heart disease of [place] coronary artery without angina pectoris
[2023-11-12] MEDS: WARFARIN SOD 5 MG TAB PO SCH (20:37)
[2023-11-12] MEDS: ALBUT/IPRATROP 3MG/0.5MG NEB 3 ML VIAL NEB SCH (20:45)
[2023-11-12] MEDS: INSULIN ASPART PER UNIT CHARGE SC SCH (21:01)
[2023-11-12] MEDS: METOPROLOL TARTRATE 25 MG TAB PO SCH (21:05)
[2023-11-12] MEDS: guaiFENesin 600 MG TABCR PO SCH (21:05)
[2023-11-13] MEDS: CEFEPIME 2,000 MG in SYRINGE 0 ML IV SCH (01:22)
--- NOTE | 2023-11-13 06:02 | Electrocardiogram Report ---
Test Reason : Blood Pressure : / mmHG Vent. Rate : 082 BPM Atrial Rate : 082 BPM P-R Int : 204 ms QRS Dur : 088 ms QT Int : 392 ms P-R-T Axes : 050 000 096 degrees QTc Int : 457 ms Normal sinus rhythm Septal infarct (cited on or before 13-JUL-2021) Nonspecific T wave abnormality Abnormal ECG When compared with ECG of 06-OCT-2023 10:22, Nonspecific T wave abnormality has replaced inverted T waves in Lateral leads Confirmed by Alberto Castillo ([id number]) on 11/13/2023 6:02:15 AM Referred By: Confirmed By:Alberto Castillo
[2023-11-13] MEDS: LEVOTHYROXINE SODIUM 25 MCG TABLET PO SCH (06:10)
[2023-11-13 08:08] LABS: Basophils # (auto) 0.05 K/uL (0.00-0.20); Basophils % (auto) 0.5 %; Eosinophils # (auto) 0.44 K/uL (0.00-0.50); Eosinophils % (auto) 4.3 %; Hematocrit (blood only) 31.9 % (42.0-52.0); Hemoglobin 10.6 g/dl (14.0-18.0); Immature Granulocytes # (auto) 0.04 K/uL (0.01-0.20); Immature Granulocytes % (auto) 0.4 %; Lymphocytes # (auto) 0.87 K/uL (1.20-3.40); Lymphocytes % (auto) 8.5 %; Mean Corpuscular Hemoglobin 29.9 pg (25.0-34.0); Mean Corpuscular Hgb Conc 33.2 g/dL (32.0-36.0); Mean Corpuscular Volume 89.9 fL (80.0-100.0); Monocytes # (auto) 0.87 K/uL (0.11-0.59); Monocytes % (auto) 8.5 %; Neutrophils # (auto) 7.98 K/uL (1.40-6.50); Neutrophils % (auto) 77.8 %; Platelet Count 275 K/uL (130-400); RDW Standard Deviation 45.8 fL (36.4-46.3); Red Blood Count 3.55 M/uL (4.70-6.10); White Blood Count 10.25 K/ul (4.8-10.8)
[2023-11-13 08:30] LABS: INR 2.4 (0.9-1.1); Prothrombin Time 24.4 Seconds (9.0-12.0)
[2023-11-13 08:37] LABS: Albumin Level 3.5 gm/dl (3.4-5.0); BUN Creatinine Ratio 17.6 (10-20); Bilirubin,Total 0.8 mg/dl (0.2-1.0); C Reactive Protein 16.6 mg/dl (0-0.5); Calcium 9.1 mg/dl (8.6-10.3); Creatinine Clr Calc Pharmacy 40.9 ml/min; Est GFR (African American) 48.4 ml/min; Est GFR (Non-African American) 41.7 ml/min; Globulin 3.5 gm/dl (2.5-4.0); Magnesium 1.9 mg/dl (1.7-2.4); Potassium 4.6 mmol/L (3.5-5.1)
[2023-11-13] MEDS: DAPTOmycin 650 MG in SYRINGE 0 ML IV SCH (08:45)
[2023-11-13] MEDS: ASPIRIN 81 MG ECTAB PO SCH (08:46)
[2023-11-13] MEDS: FOLIC ACID 1 MG TAB PO SCH (08:46)
[2023-11-13] MEDS: FINASTERIDE 5 MG TAB PO SCH (08:46)
[2023-11-13] MEDS: FLUTICASONE PROPIONATE NA SPR 16 GM BTL SCH (08:46)
[2023-11-13] MEDS: ISOSORBIDE MONO EXTENDED REL 30 MG TABCR PO SCH (08:46)
[2023-11-13] MEDS: POLYETHYLENE (MIRALAX) 17 GM PACK PO SCH (08:50)
[2023-11-13] MEDS: LANTUS PER UNIT CHARGE SQ SCH (08:50)
[2023-11-13 08:51] LABS: Thyroid Stimulating Hormone 2.294 uIu/ml (0.300-4.500)
[2023-11-13 10:10] LABS: Appearance Urine Clear (Clear); Bacteria Urine Automated None Seen (None Seen); Bilirubin Urine Negative (Negative); Blood Urine Negative (Negative); Cast Urine Automated 0-2 /lpf (0-2); Color Urine Yellow; Epithelial Cell Urine Auto 0-2 /hpf (0-2); Glucose Urine UA 2+ (Negative); Ketones Urine 2+ (Negative); Leukocyte Esterase Urine Negative (Negative); Nitrite Urine Negative (Negative); Protein Urine 1+ (Negative); RBC Urine Automated 0-2 /hpf (0-2); Specific Gravity Urine 1.023 (1.000-1.030); Urobilinogen Urine Negative (Negative); WBC Urine Automated 0-5 /hpf (0-5)
--- NOTE | 2023-11-13 11:42 | Hospitalist Progress Note ---
Date of Service November 13, 2023 Assessment & Plan (1) Hospital-acquired pneumonia: Plan: Acute/stable - Observation to med/surg - Cover for hospital acquired pneumonia with Cefepime (renally dosed) and continue Daptomycin - Blood cultures x2 set, pending, sputum culture pending - CBC, CRP, and CMP reviewed this AM. CRP trending down. CBC stable, no leukocytosis or shift. Afebrile. Stable O2 sat on room air. - MRSA screen negative. - Duonebs QID scheduled, q2 prn dyspnea/wheezing and Mucinex 600mg BID - O2 PRN to maintain pulse ox >90% (2) Acute CHF (congestive heart failure): Plan: Acute/stable - Echocardiogram is UTD, last done in October 2023, HFpEF, mild , moderate mitral calcification - Bilateral pleural effusions R>L and PVC noted on CXR - Dose of Lasix 40mg IV x1 in ED, give another dose of IV Lasix 40mg x1 this AM - Resume Torsemide 20mg daily on 11/13 - Daily weights and monitor I/O q shift (3) Osteomyelitis of toe of right foot: Plan: Acute/stable - Currently on treatment with daily Daptomycin 660mg IV - CRP elevated at 17, likely combo of OM and pneumonia, trending down slowly - coater brake linings consult, appreciate assistance (4) Paroxysmal atrial fibrillation: Plan: Chronic/stable - Rate controlled - Continue Lopressor 25mg BID - Continue Coumadin 5mg daily @ 1600, check PT/INR daily in AM, reviewed this AM 2.6 (5) Factor V Leiden mutation: Plan: Chronic/stable - Continue Coumadin 5mg as noted above, PT/INR in AM (6) CAD (coronary artery disease): Plan: Chronic/stable - No chest pain - HS trop normal at 15.9 - Continue Aspirin, Imdur, and Lopressor (7) Hypothyroidism: Plan: Chronic/stable - TSH WNL at 2.294 - Continue Levothyroxine (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 Give another dose of IV Lasix. Continue IV abx for hospital acquired pna. PT/OT eval. AM labs ordered. Anticipate home tomorrow. Above plan of care to be d/w Dr. Castellanos. Admission and Anticipated Discharge Date Admission Date: November 12, 2023 Nelson Patricio is an 82 yo M with a recent history of right great toe OM currently on Daptomycin IV daily for total duration of 6 weeks. He was admitted yesterday with combination of PNA and mild exacerbation of CHF. He received a dose of IV Lasix 40mg x1 in the ER yesterday with good response. His weight is down and his renal function remains stable. He feels that his breathing is about the same but his oxygen saturations remains in the mid to upper 90s on room air. Denies chest pain. Continues to endorse cough, was able to produce a small specimen for sputum culture. Remains afebrile. Review of Systems 2 Review of Systems: All systems reviewed and are unremarkable except as noted in HPI and below. Denies fever, chills, fatigue, headache, nasal congestion, sore throat, cough, chest pain, palpitations, orthopnea, PND, abdominal pain, n/v/d, constipation, dysuria, hematuria, frequency, back pain, joint pain or swelling, easy bruising or bleeding, skin lesions or rashes. Physical Exam 2 Physical Exam: GENERAL: 82 yo Well-developed, well-nourished elderly M. A&O x3. NAD. LUNGS: Nonlabored. Bibasilar crackles. No wheezes/rhonchi. CARDIOVASCULAR: S1, S2 irregular with 3/6 LEFTY. No g/r. ABDOMEN: Soft, non-tender and non-distended. BS normoactive x 4 quad. : godfrey draining pale yellow urine EXTREMITIES: +1 pitting edema in LLE. RLE w/o edema. Non-tender. Peripheral pulses +2/4. SKIN: Warm, dry, intact. No rashes or lesions. Results & Data Results & Data Vital Signs (Past 12 Hours) Vital Signs Temp Pulse Pulse Resp BP Pulse Ox O2 Del Method 11/13/23 10:51 79 18 96 Room Air 11/13/23 08:38 37.2 C 107 H 20 176/91 H 93 Room Air 11/13/23 07:52 Room Air 11/13/23 07:12 78 11/13/23 07:08 80 18 94 Room Air 11/13/23 04:15 95 H 17 92 11/13/23 03:38 36.6 C 78 18 98/64 L 99 Room Air, CPAP Laboratory Results 11/13/23 07:16 11/13/23 07:16 PG Care Time/CCT Total # of Minutes Spent Total Time Spent with Patient: Total time spent is greater than 50% in coordination of care (as documented) at patient's floor/unit and/or counseling patient: Coding Level of Care Code 64798 SUB INP/OBS CARE 2/35MIN Diagnoses Hospital-acquired pneumonia J18.9; Y95 Acute congestive heart failure, unspecified heart failure type I50.9 Heart failure type: unspecified Osteomyelitis of toe of right foot M86.9 Paroxysmal atrial fibrillation I48.0 Factor V Leiden mutation D68.51 Coronary artery disease involving [place] coronary artery of [place] heart without angina pectoris I25.10 Associated angina: without angina Coronary Disease-Associated Artery/Lesion type: [place] artery [place] vs. transplanted heart: [place] heart Acquired hypothyroidism E03.9 Hypothyroidism type: acquired Type 1 diabetes mellitus with complications E10.8 (2) Acute CHF (congestive heart failure) Heart failure type: unspecified Qualified Code(s): I50.9 - Heart failure, unspecified (6) CAD (coronary artery disease) Associated angina: without angina Coronary Disease-Associated Artery/Lesion type: [place] artery [place] vs. transplanted heart: [place] heart Qualified Code(s): I25.10 - Atherosclerotic heart disease of [place] coronary artery without angina pectoris (7) Hypothyroidism Hypothyroidism type: acquired Qualified Code(s): E03.9 - Hypothyroidism, unspecified
[2023-11-13] MEDS: FUROSEMIDE 40 MG/4 ML VIAL IV ONE (11:55)
[2023-11-14 05:46] LABS: Basophils # (auto) 0.04 K/uL (0.00-0.20); Basophils % (auto) 0.3 %; Eosinophils # (auto) 0.35 K/uL (0.00-0.50); Hemoglobin 11.2 g/dl (14.0-18.0); Immature Granulocytes # (auto) 0.05 K/uL (0.01-0.20); Immature Granulocytes % (auto) 0.4 %; Lymphocytes % (auto) 4.3 %; Mean Corpuscular Hemoglobin 30.2 pg (25.0-34.0); Mean Corpuscular Hgb Conc 33.9 g/dL (32.0-36.0); Mean Corpuscular Volume 88.9 fL (80.0-100.0); Mean Platelet Volume 9.7 fL (9.4-12.4); Monocytes # (auto) 0.88 K/uL (0.11-0.59); Monocytes % (auto) 7.5 %; Neutrophils # (auto) 9.86 K/uL (1.40-6.50); Neutrophils % (auto) 84.5 %; Platelet Count 303 K/uL (130-400); RDW Coefficient of Variation 14.1 % (11.5-14.5); Red Blood Count 3.71 M/uL (4.70-6.10); White Blood Count 11.68 K/ul (4.8-10.8)
[2023-11-14 06:02] LABS: BUN Creatinine Ratio 21.4 (10-20); Creatinine Clr Calc Pharmacy 39.3 ml/min; Est GFR (African American) 46.2 ml/min; Est GFR (Non-African American) 39.8 ml/min; Potassium 4.1 mmol/L (3.5-5.1)
[2023-11-14 06:14] LABS: INR 3.4 (0.9-1.1); Prothrombin Time 33.5 Seconds (9.0-12.0)
[2023-11-14] MEDS: LANTUS PER UNIT CHARGE SQ SCH ×2 (08:42→20:53)
[2023-11-14] MEDS: FUROSEMIDE 40 MG/4 ML VIAL IV SCH (08:42)
[2023-11-14] MEDS: DOXAZosin MESYLATE TAB 2 MG TAB PO SCH (08:43)
[2023-11-14] MEDS ORDERED: LANTUS PER UNIT CHARGE SQ SCH (09:00)
[2023-11-14] MEDS: INSULIN ASPART PER UNIT CHARGE SC STA (12:39)
[2023-11-14] MEDS ORDERED: ALBUT/IPRATROP 3MG/0.5MG NEB 3 ML VIAL NEB PRN (15:07)
--- NOTE | 2023-11-14 16:47 | Hospitalist Progress Note ---
Date of Service November 14, 2023 Assessment & Plan (1) Hospital-acquired pneumonia: Plan: Ruled out (2) Acute CHF (congestive heart failure): Plan: Acute on chronic diastolic CHF. Most recent echo completed October 28 reveals normal ejection fraction with mild aortic stenosis. He is now on parenteral Lasix therapy every 12 hours. Monitor intake and output. Repeat portable chest x-ray tomorrow, November 14. (3) Osteomyelitis of toe of right foot: Plan: Currently on daptomycin at home which continues as an inpatient. MRSA was previously isolated. (4) Paroxysmal atrial fibrillation: Plan: Rate controlled. Coumadin is placed on hold due to INR 3.4. Telemetry. (5) Factor V Leiden mutation: Plan: Stable. Continue Coumadin therapy (6) CAD (coronary artery disease): Plan: Stable. Continue current medical management (7) Hypothyroidism: Plan: Stable. 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 ADA diet. Sliding scale coverage. Basal insulin therapy. Plan Hopeful discharge to home tomorrowNovember 14 Admission and Anticipated Discharge Date Admission Date: November 13, 2023 Subjective Alert and oriented. No distress. He is on room air. Parenteral Lasix 40 mg every 12 hours has been ordered. INR has risen to 3.4. Coumadin has been placed on hold. Hyperglycemia noted. Basal Lantus therapy increased and sliding scale insulin adjusted. Will repeat portable chest x-ray tomorrow, November 14. He is in no distress and is on room air. Hopefully he can go home tomorrow, November 14. He has not been taking his torsemide on a regular basis due to constipation. I told him he can treat the constipation with Colace and MiraLAX but he needs to take the Demadex as directed. Review of Systems 2 Review of Systems: Constitutional-no fever or chills ENT-no blurred vision, no double vision, no epistaxis, no sore throat Respiratory-no cough, no wheezing, no shortness of breath Cardiac-no palpitations, no chest pain, no syncope GI-no nausea, vomiting, diarrhea, melena, hematochezia. He does complain of constipation -no urinary retention, no urinary incontinence, no dysuria, no hematuria Musculoskeletal-no joint pain, no muscle tenderness Skin-no bruising, no rashes, no pruritus Neuro-no isolated weakness, no paresthesia, no weakness Psych-no depression, no anxiety Physical Exam 2 Physical Exam: General-alert and oriented x3, no fever, no chills HEENT-head atraumatic and normocephalic, pupils equal and reactive to light, extraocular muscles intact Neck-no lymphadenopathy or thyromegaly, trachea midline Chest-inspiratory right basilar rales. No wheezing. Dullness noted at both bases i Cardiac-regular rate and rhythm, normal S1 and S2 Abdomen-normal bowel sounds, no hepatosplenomegaly Extremities-no cyanosis, clubbing, or edema. He is being treated for osteomyelitis of the right great toe Neuro-cranial nerves II through XII intact, motor and sensory function within normal limits, strength symmetrical, no focal deficits Psych-normal affect, normal mood Results & Data Results & Data Vital Signs (Past 12 Hours) Vital Signs Temp Pulse Pulse Resp BP Pulse Ox O2 Del Method 11/14/23 15:31 36.8 C 87 20 105/61 96 Room Air 11/14/23 14:51 96 H 11/14/23 11:22 36.7 C 91 H 20 142/73 H 96 Room Air 11/14/23 11:06 94 H 18 95 Room Air 11/14/23 08:50 Room Air 11/14/23 07:25 37.4 C 95 H 20 130/69 96 Room Air 11/14/23 07:12 87 11/14/23 07:05 96 H 18 95 Room Air 11/14/23 05:38 144/73 H 11/14/23 04:44 37.6 C H 92 H 20 169/79 H 95 Room Air Laboratory Results 11/14/23 05:23 11/14/23 05:23 PG Care Time/CCT Total # of Minutes Spent Total Time Spent with Patient: Total time spent is greater than 50% in coordination of care (as documented) at patient's floor/unit and/or counseling patient: Coding Level of Care Code 66771 SUB INP/OBS CARE 350MIN Diagnoses Hospital-acquired pneumonia J18.9; Y95 Acute congestive heart failure, unspecified heart failure type I50.9 Heart failure type: unspecified Osteomyelitis of toe of right foot M86.9 Paroxysmal atrial fibrillation I48.0 Factor V Leiden mutation D68.51 Coronary artery disease involving [place] coronary artery of [place] heart without angina pectoris I25.10 Coronary Disease-Associated Artery/Lesion type: [place] artery [place] vs. transplanted heart: [place] heart Associated angina: without angina Acquired hypothyroidism E03.9 Hypothyroidism type: acquired Type 1 diabetes mellitus with complications E10.8 (2) Acute CHF (congestive heart failure) Heart failure type: unspecified Qualified Code(s): I50.9 - Heart failure, unspecified (6) CAD (coronary artery disease) Coronary Disease-Associated Artery/Lesion type: [place] artery [place] vs. transplanted heart: [place] heart Associated angina: without angina Qualified Code(s): I25.10 - Atherosclerotic heart disease of [place] coronary artery without angina pectoris (7) Hypothyroidism Hypothyroidism type: acquired Qualified Code(s): E03.9 - Hypothyroidism, unspecified
[2023-11-15 06:37] LABS: Basophils # (auto) 0.06 K/uL (0.00-0.20); Basophils % (auto) 0.6 %; Eosinophils # (auto) 0.52 K/uL (0.00-0.50); Eosinophils % (auto) 4.8 %; Hematocrit (blood only) 33.2 % (42.0-52.0); Immature Granulocytes # (auto) 0.09 K/uL (0.01-0.20); Immature Granulocytes % (auto) 0.8 %; Lymphocytes # (auto) 0.55 K/uL (1.20-3.40); Lymphocytes % (auto) 5.1 %; Mean Corpuscular Hemoglobin 29.7 pg (25.0-34.0); Mean Corpuscular Hgb Conc 33.1 g/dL (32.0-36.0); Mean Corpuscular Volume 89.7 fL (80.0-100.0); Mean Platelet Volume 9.8 fL (9.4-12.4); Monocytes # (auto) 0.87 K/uL (0.11-0.59); Monocytes % (auto) 8.1 %; Neutrophils % (auto) 80.6 %; Platelet Count 293 K/uL (130-400); RDW Coefficient of Variation 13.9 % (11.5-14.5); RDW Standard Deviation 45.4 fL (36.4-46.3); White Blood Count 10.79 K/ul (4.8-10.8)
[2023-11-15 06:46] LABS: BUN Creatinine Ratio 20.7 (10-20); Est GFR (African American) 38.7 ml/min; Est GFR (Non-African American) 33.4 ml/min; Potassium 4.5 mmol/L (3.5-5.1)
[2023-11-15 06:53] LABS: INR 3.5 (0.9-1.1); Prothrombin Time 34.1 Seconds (9.0-12.0)
--- NOTE | 2023-11-15 08:16 | XRay Report ---
XR chest 1V portable CLINICAL HISTORY: CHF TECHNIQUE: Single frontal radiograph of the chest was obtained. Comparison: Comparison is made to chest radiograph 11/12/2023 FINDINGS: Median sternotomy wires are unchanged. Right PICC is unchanged. Calcified aortic knob is seen. Faint airspace opacities are seen bilaterally. Small left pleural effusion. IMPRESSION: Previously noted vascular congestion has improved. Multifocal airspace opacities are stable compatibl e with pneumonia versus aspiration. Stable small left pleural effusion. ACT 112: Negative or not required by law. Electronically signed by: Nilo Chen M.D. 11/15/2023 8:14 AM
[2023-11-15] MEDS: LANTUS PER UNIT CHARGE SQ SCH (09:51)
--- NOTE | 2023-11-15 11:54 | Discharge Summary ---
Date of Service November 15, 2023 Admission HPI Per Admitting Provider Sheng Cagle is an 82 yo M with a pmhx of DMT1, PAF, , PAD, CAD, h/o dysphagia, CKD, Factor V Leiden on chronic Coumadin therapy, and most recently is currently being treated for a right great toe osteomyelitis with IV Daptomycin x6 weeks who presents to the ER c/o increased dyspnea and cough over the past 4-5 days. Yesterday, reported low grade fever. Dyspnea is not aggravated by exertion. 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 He denies chest pain, orthopnea, or PND. He denies feeling dizzy or lightheaded, or having palpitations. He has issues with chronic incontinence. He denies n/v/d. Family was concerned about possible spread of infection to his bloodstream but he has been on the Daptomycin now for about 4 weeks. He is currently afebrile in the ER. His last echocardiogram was in October of this year with preserved EF. His ER w/u demonstrates a normal wbc count, afebrile, normotensive and controlled HR. His renal function is at baseline, no electrolyte abnormalities. EKG nonacute. His CXR demonstrates cardiomegaly with PVC, L>R pleural effusions and bilateral airspace opacities. He was medicated with a dose of Rocephin and Azithromycin and has been referred for admission. Principal Diagnosis Acute on chronic diastolic CHF Discharge Exam General-alert and oriented x3, no fever, no chills HEENT-head atraumatic and normocephalic, pupils equal and reactive to light, extraocular muscles intact Neck-no lymphadenopathy or thyromegaly, trachea midline Chest-inspiratory right basilar rales. No wheezing. Dullness noted at both bases i Cardiac-regular rate and rhythm, normal S1 and S2 Abdomen-normal bowel sounds, no hepatosplenomegaly Extremities-no cyanosis, clubbing, or edema. He is being treated for osteomyelitis of the right great toe Neuro-cranial nerves II through XII intact, motor and sensory function within normal limits, strength symmetrical, no focal deficits Psych-normal affect, normal mood Discharge Data Allergies Allergy/AdvReac Type Severity Reaction Status Date / Time clindamycin Allergy Intermediate Rash Verified 11/10/23 11:17 lisinopril Allergy Intermediate falling Verified 11/10/23 11:17 down ? Penicillins Allergy Intermediate Hives Verified 11/10/23 11:17 Sulfa (Sulfonamide Allergy Intermediate HIVES Verified 11/10/23 11:17 Antibiotics) cashew nut Allergy Unknown Unknown Verified 11/10/23 11:17 peanut Allergy Unknown Unknown Verified 11/10/23 11:17 Consultations 11/12/23 15:26 ED Decision to Admit Stat Hospital Course (1) Hospital-acquired pneumonia: Ruled out (2) Acute CHF (congestive heart failure): Acute on chronic diastolic CHF. Most recent echo completed October 28 reveals normal ejection fraction with mild aortic stenosis. He was treated while hospitalized with parenteral Lasix therapy every 12 hours. Repeat chest x-ray done today, November 14, looks better. (3) Osteomyelitis of toe of right foot: Currently on daptomycin at home which continues as an inpatient. MRSA was previously isolated. (4) Paroxysmal atrial fibrillation: Rate controlled. Coumadin remains on hold due to INR of 3.5. This can be restarted in 3 days. Telemetry. (5) Factor V Leiden mutation: Stable. Continue Coumadin therapy when INR normalizes (6) CAD (coronary artery disease): Stable. Continue current medical management (7) Hypothyroidism: Stable. 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 ADA diet. Sliding scale coverage. Basal insulin therapy. Plan Home today, November 14. He was instructed to take his torsemide as directed and use stool softeners and MiraLAX as needed for any constipation that he may develop Total Time Total Time Spent Total Time Spent (In Minutes): 45 minutes Discharge Plan Discharge Items Patient Disposition: Home - Self-Care Reason For Visit: PNEUMONIA Discharge Diagnosis: Acute on chronic diastolic CHF Activity: Resume your previous activity Non-emergency contact: Primary Care Provider Call non-emergency contact if: your symptoms worsen Follow-up/Referrals: Guilherme Moe, [Primary Care Provider] - Diet: Carb Consistent or DM2 Addtl Attending Provider Instructions: Take all medications as directed including torsemide diuretic. Use a stool softener daily and MiraLAX daily to prevent constipation Pending Studies at Discharge: No Stand-Alone Forms: [employer] Smoking Cessation Medications and DC Order Prescriptions: Continued multivitamin Tablet 1 tab PO QDL Qty: 0 magnesium 250 mg Tablet 250 mg PO QDL Qty: 0 (DME) FreeStyle Anna 2 Sensor Kit See Rx Instructions .Route Qty: 2 5RF Rx Instructions: Change every 14 days levothyroxine 25 mcg tablet 25 mcg PO QAM Qty: 90 3RF azelastine 137 mcg (0.1 %) aerosol,spray 1 spray intranasal BID Qty: 90 3RF Rx Instructions: administer into each nostril torsemide 20 mg tablet 20 mg PO QAM Qty: 90 3RF finasteride 5 mg tablet 5 mg PO DAILY Qty: 90 3RF warfarin 5 mg tablet See Rx Instructions PO .COMPLEX Qty: 90 0RF Protocol: Dose Management Condition: Wednesday (Week One) Dose/Route: 2.5 mg Instruction: 0.5 x 5 mg tablets Condition: Wednesday Dose/Route: 2.5 mg Instruction: 0.5 x 5 mg tablets Condition: Wednesday Dose/Route: 5 mg Instruction: 1 x 5 mg tablet Condition: Wednesday Dose/Route: 5 mg Instruction: 1 x 5 mg tablet Condition: Dose/Route: 5 mg Instruction: 1 x 5 mg tablet Condition: Wednesday Dose/Route: 2.5 mg Instruction: 0.5 x 5 mg tablets Condition: Wednesday Dose/Route: 2.5 mg Instruction: 0.5 x 5 mg tablets Condition: Wednesday (Week Two) Dose/Route: 2.5 mg Instruction: 0.5 x 5 mg tablets Condition: Wednesday Dose/Route: 2.5 mg Instruction: 0.5 x 5 mg tablets Condition: Wednesday Dose/Route: 5 mg Instruction: 1 x 5 mg tablet Condition: Wednesday Dose/Route: 2.5 mg Instruction: 0.5 x 5 mg tablets Condition: Dose/Route: 5 mg Instruction: 1 x 5 mg tablet Condition: Wednesday Dose/Route: 2.5 mg Instruction: 0.5 x 5 mg tablets Condition: Wednesday Dose/Route: 2.5 mg Instruction: 0.5 x 5 mg tablets Protocol Text: Adjustment Start Date: Wednesday11/09/23 INR Value: 1.5 INR Date: 11/09/23 Recheck Date: 11/16/23 Rx Instructions: Spouse unsure how pt takes this medication. There looks to be an updated protocol below in dose management that has a start date of 10/04/23. metoprolol tartrate 25 mg tablet 25 mg PO BID Qty: 180 3RF nitroglycerin [Nitrostat] 0.4 mg tablet, sublingual 0.4 mg sublingual UD PRN (Reason: Chest Pain) Qty: 100 3RF Rx Instructions: q 5min for chest pain up to 3 doses. glucagon HCl [Glucagon (HCl) Emergency Kit] 1 mg recon soln 1 mg subcut Q20M PRN (Reason: hypoglycemia) Qty: 1 1RF Rx Instructions: until target blood sugar attained isosorbide mononitrate 30 mg tablet extended release 24 hr 30 mg PO DAILY Qty: 90 3RF insulin lispro [Humalog KwikPen Insulin] 100 unit/mL insulin pen See Rx Instructions subcut TID Qty: 95 3RF Rx Instructions: subcutaneously three times a day; use insulin to carbohydrate ratio of 1:3; up to TDD 105 units insulin glargine U-300 conc [[place] SoloStar U-300 Insulin] 300 unit/mL (1.5 mL) insulin pen 25 unit subcut DAILY Qty: 9 3RF aspirin 81 mg tablet,delayed release (DR/EC) 81 mg PO QAM (DME) Ketone Urine Test Strip See Rx Instructions .MEDSUPPLY Qty: 50 2RF Rx Instructions: As directed to check ketones in urine if blood sugar is higher than 300 cholecalciferol (vitamin D3) 50 mcg (2,000 unit) capsule 50 mcg PO DAILY doxazosin 2 mg tablet 2 mg PO DAILY (DME) pen needle, diabetic [Comfort EZ Pen [place]] 31 gauge x 1/4" needle See Rx Instructions .Route Qty: 200 11RF Rx Instructions: use with insulin pen 4-6 times daily lutein 20 mg capsule 20 mg PO QDL thiamine HCl (vitamin B1) 100 mg tablet 100 mg PO QDL fluticasone propionate 50 mcg/actuation spray,suspension 2 sprays INTNAS DAILY PRN (Reason: Nasal Congestion) polyethylene glycol 3350 [Miralax] 17 gram/dose powder 17 g PO DAILY (DME) OneTouch Verio test strips Strip See Rx Instructions .MEDSUPPLY Qty: 180 3RF Rx Instructions: check blood sugars twice a day (DME) blood-glucose meter [OneTouch Verio Flex meter] Misc See Rx Instructions miscellaneous .MEDSUPPLY Qty: 1 0RF Rx Instructions: As directed folic acid 1 mg tablet 1 mg PO DAILY daptomycin in 0.9 % sod chlor 500 mg/50 mL piggyback 660 mg IV DAILY Rx Instructions: administer over 30 mins Discharge Orders: Discharge Order- CHF (Routine); Ordered 11/15/23 Ordered By: Joseluis Blair Admission Data Admit Date/Time: 11/13/23 10:34 Attending Provider: Joseluis Blair Admit Provider: Sheng Nielson Primary Care Provider: Guilherme Moe Other Providers: Sheng Nielson Coding Level of Care Code 44452 INP/OBS DISCH >30 MIN Diagnoses Hospital-acquired pneumonia J18.9; Y95 Acute congestive heart failure, unspecified heart failure type I50.9 Heart failure type: unspecified Osteomyelitis of toe of right foot M86.9 Paroxysmal atrial fibrillation I48.0 Factor V Leiden mutation D68.51 Coronary artery disease involving [place] coronary artery of [place] heart without angina pectoris I25.10 Coronary Disease-Associated Artery/Lesion type: [place] artery [place] vs. transplanted heart: [place] heart Associated angina: without angina Acquired hypothyroidism E03.9 Hypothyroidism type: acquired Type 1 diabetes mellitus with complications E10.8
[2023-11-16 07:26] LABS: Basophils # (auto) 0.06 K/uL (0.00-0.20); Basophils % (auto) 0.6 %; Eosinophils # (auto) 0.55 K/uL (0.00-0.50); Eosinophils % (auto) 5.3 %; Hematocrit (blood only) 34.6 % (42.0-52.0); Hemoglobin 11.5 g/dl (14.0-18.0); Immature Granulocytes # (auto) 0.08 K/uL (0.01-0.20); Immature Granulocytes % (auto) 0.8 %; Lymphocytes # (auto) 0.57 K/uL (1.20-3.40); Lymphocytes % (auto) 5.5 %; Mean Corpuscular Hemoglobin 29.9 pg (25.0-34.0); Mean Corpuscular Hgb Conc 33.2 g/dL (32.0-36.0); Mean Corpuscular Volume 89.9 fL (80.0-100.0); Mean Platelet Volume 9.5 fL (9.4-12.4); Monocytes # (auto) 0.77 K/uL (0.11-0.59); Monocytes % (auto) 7.5 %; Neutrophils # (auto) 8.27 K/uL (1.40-6.50); Neutrophils % (auto) 80.3 %; Platelet Count 320 K/uL (130-400); RDW Standard Deviation 45.7 fL (36.4-46.3); Red Blood Count 3.85 M/uL (4.70-6.10)
[2023-11-16 07:38] LABS: BUN Creatinine Ratio 24.6 (10-20); Creatinine Clr Calc Pharmacy 37.2 ml/min; Est GFR (African American) 43.5 ml/min; Est GFR (Non-African American) 37.5 ml/min; Potassium 4.3 mmol/L (3.5-5.1)
[2023-11-16 07:44] LABS: INR 3.3 (0.9-1.1); Prothrombin Time 32.4 Seconds (9.0-12.0)
[2023-11-16] MEDS: METOPROLOL TARTRATE 50 MG TAB PO SCH (09:52)
--- NOTE | 2023-11-16 12:38 | Discharge Summary ---
Date of Service November 16, 2023 Admission HPI Per Admitting Provider Sheng Cagle is an 82 yo M with a pmhx of DMT1, PAF, , PAD, CAD, h/o dysphagia, CKD, Factor V Leiden on chronic Coumadin therapy, and most recently is currently being treated for a right great toe osteomyelitis with IV Daptomycin x6 weeks who presents to the ER c/o increased dyspnea and cough over the past 4-5 days. Yesterday, reported low grade fever. Dyspnea is not aggravated by exertion. 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 He denies chest pain, orthopnea, or PND. He denies feeling dizzy or lightheaded, or having palpitations. He has issues with chronic incontinence. He denies n/v/d. Family was concerned about possible spread of infection to his bloodstream but he has been on the Daptomycin now for about 4 weeks. He is currently afebrile in the ER. His last echocardiogram was in October of this year with preserved EF. His ER w/u demonstrates a normal wbc count, afebrile, normotensive and controlled HR. His renal function is at baseline, no electrolyte abnormalities. EKG nonacute. His CXR demonstrates cardiomegaly with PVC, L>R pleural effusions and bilateral airspace opacities. He was medicated with a dose of Rocephin and Azithromycin and has been referred for admission. Principal Diagnosis Acute on chronic diastolic CHF Discharge Exam General-alert and oriented x3, no fever, no chills HEENT-head atraumatic and normocephalic, pupils equal and reactive to light, extraocular muscles intact Neck-no lymphadenopathy or thyromegaly, trachea midline Chest-inspiratory right basilar rales. No wheezing. Dullness noted at both bases i Cardiac-regular rate and rhythm, normal S1 and S2 Abdomen-normal bowel sounds, no hepatosplenomegaly Extremities-no cyanosis, clubbing, or edema. He is being treated for osteomyelitis of the right great toe Neuro-cranial nerves II through XII intact, motor and sensory function within normal limits, strength symmetrical, no focal deficits Psych-normal affect, normal mood Discharge Data Allergies Allergy/AdvReac Type Severity Reaction Status Date / Time clindamycin Allergy Intermediate Rash Verified 11/10/23 11:17 lisinopril Allergy Intermediate falling Verified 11/10/23 11:17 down ? Penicillins Allergy Intermediate Hives Verified 11/10/23 11:17 Sulfa (Sulfonamide Allergy Intermediate HIVES Verified 11/10/23 11:17 Antibiotics) cashew nut Allergy Unknown Unknown Verified 11/10/23 11:17 peanut Allergy Unknown Unknown Verified 11/10/23 11:17 Consultations 11/12/23 15:26 ED Decision to Admit Stat Hospital Course (1) Hospital-acquired pneumonia: Ruled out (2) Acute CHF (congestive heart failure): Acute on chronic diastolic CHF. Most recent echo completed October 28 reveals normal ejection fraction with mild aortic stenosis. He was treated while hospitalized with parenteral Lasix therapy every 12 hours. Repeat chest x-ray done on November 14 looked better. He is on room air. (3) Osteomyelitis of toe of right foot: Currently on daptomycin at home which continues as an inpatient. MRSA was previously isolated. (4) Paroxysmal atrial fibrillation: Rate controlled. Coumadin remains on hold due to elevated INR. INR is now downtrending to 3.3. Will hold Coumadin for 2 more days. (5) Factor V Leiden mutation: Stable. Continue Coumadin therapy when INR normalizes (6) CAD (coronary artery disease): Stable. Continue current medical management (7) Hypothyroidism: Stable. 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 ADA diet. Sliding scale coverage. Basal insulin therapy uptitrated today, November 15. Plan Stable for discharge to [facility] today, November 15 Total Time Total Time Spent Total Time Spent (In Minutes): 45 minutes Discharge Plan Discharge Items Patient Disposition: Home - Home Health Services Reason For Visit: PNEUMONIA Discharge Diagnosis: Acute on chronic diastolic CHF Activity: Resume your previous activity Non-emergency contact: Primary Care Provider Call non-emergency contact if: your symptoms worsen Follow-up/Referrals: Guilherme Moe DO [Primary Care Provider] - 11/25/23 11:00 am Diet: Carb Consistent or DM2 Addtl Attending Provider Instructions: Take all medications as directed including torsemide diuretic. Use a stool softener daily and MiraLAX daily to prevent constipation. Intravenous daptomycin will continue as before. Coumadin will remain on hold for 2 more days then restart as before Pending Studies at Discharge: No Stand-Alone Forms: My [facility], Smoking Cessation Medications and DC Order Prescriptions: New insulin glargine [Lantus U-100 Insulin] 100 unit/mL Solution 30 unit subcut QAM Qty: 0 0RF insulin glargine [Lantus U-100 Insulin] 100 unit/mL Solution 30 unit subcut QPM Qty: 0 0RF metoprolol tartrate 50 mg Tablet 50 mg PO BID Qty: 0 0RF Continued multivitamin Tablet 1 tab PO QDL Qty: 0 magnesium 250 mg Tablet 250 mg PO QDL Qty: 0 (DME) FreeStyle Anna 2 Sensor Kit See Rx Instructions .Route Qty: 2 5RF Rx Instructions: Change every 14 days levothyroxine 25 mcg tablet 25 mcg PO QAM Qty: 90 3RF azelastine 137 mcg (0.1 %) aerosol,spray 1 spray intranasal BID Qty: 90 3RF Rx Instructions: administer into each nostril torsemide 20 mg tablet 20 mg PO QAM Qty: 90 3RF finasteride 5 mg tablet 5 mg PO DAILY Qty: 90 3RF warfarin 5 mg tablet See Rx Instructions PO .COMPLEX Qty: 90 0RF Protocol: Dose Management Condition: Wednesday (Week One) Dose/Route: 2.5 mg Instruction: 0.5 x 5 mg tablets Condition: Wednesday Dose/Route: 2.5 mg Instruction: 0.5 x 5 mg tablets Condition: Wednesday Dose/Route: 5 mg Instruction: 1 x 5 mg tablet Condition: Wednesday Dose/Route: 5 mg Instruction: 1 x 5 mg tablet Condition: Dose/Route: 5 mg Instruction: 1 x 5 mg tablet Condition: Wednesday Dose/Route: 2.5 mg Instruction: 0.5 x 5 mg tablets Condition: Wednesday Dose/Route: 2.5 mg Instruction: 0.5 x 5 mg tablets Condition: Wednesday (Week Two) Dose/Route: 2.5 mg Instruction: 0.5 x 5 mg tablets Condition: Wednesday Dose/Route: 2.5 mg Instruction: 0.5 x 5 mg tablets Condition: Wednesday Dose/Route: 5 mg Instruction: 1 x 5 mg tablet Condition: Wednesday Dose/Route: 2.5 mg Instruction: 0.5 x 5 mg tablets Condition: Dose/Route: 5 mg Instruction: 1 x 5 mg tablet Condition: Wednesday Dose/Route: 2.5 mg Instruction: 0.5 x 5 mg tablets Condition: Wednesday Dose/Route: 2.5 mg Instruction: 0.5 x 5 mg tablets Protocol Text: Adjustment Start Date: Wednesday11/09/23 INR Value: 1.5 INR Date: 11/09/23 Recheck Date: 11/16/23 Rx Instructions: Spouse unsure how pt takes this medication. There looks to be an updated protocol below in dose management that has a start date of 10/04/23. nitroglycerin [Nitrostat] 0.4 mg tablet, sublingual 0.4 mg sublingual UD PRN (Reason: Chest Pain) Qty: 100 3RF Rx Instructions: q 5min for chest pain up to 3 doses. glucagon HCl [Glucagon (HCl) Emergency Kit] 1 mg recon soln 1 mg subcut Q20M PRN (Reason: hypoglycemia) Qty: 1 1RF Rx Instructions: until target blood sugar attained isosorbide mononitrate 30 mg tablet extended release 24 hr 30 mg PO DAILY Qty: 90 3RF insulin lispro [Humalog KwikPen Insulin] 100 unit/mL insulin pen See Rx Instructions subcut TID Qty: 95 3RF Rx Instructions: subcutaneously three times a day; use insulin to carbohydrate ratio of 1:3; up to TDD 105 units aspirin 81 mg tablet,delayed release (DR/EC) 81 mg PO QAM (DME) Ketone Urine Test Strip See Rx Instructions .MEDSUPPLY Qty: 50 2RF Rx Instructions: As directed to check ketones in urine if blood sugar is higher than 300 cholecalciferol (vitamin D3) 50 mcg (2,000 unit) capsule 50 mcg PO DAILY doxazosin 2 mg tablet 2 mg PO DAILY (DME) pen needle, diabetic [Comfort EZ Pen [place]] 31 gauge x 1/4" needle See Rx Instructions .Route Qty: 200 11RF Rx Instructions: use with insulin pen 4-6 times daily lutein 20 mg capsule 20 mg PO QDL thiamine HCl (vitamin B1) 100 mg tablet 100 mg PO QDL fluticasone propionate 50 mcg/actuation spray,suspension 2 sprays INTNAS DAILY PRN (Reason: Nasal Congestion) polyethylene glycol 3350 [Miralax] 17 gram/dose powder 17 g PO DAILY (DME) OneTouch Verio test strips Strip See Rx Instructions .MEDSUPPLY Qty: 180 3RF Rx Instructions: check blood sugars twice a day (DME) blood-glucose meter [OneTouch Verio Flex meter] Misc See Rx Instructions miscellaneous .MEDSUPPLY Qty: 1 0RF Rx Instructions: As directed folic acid 1 mg tablet 1 mg PO DAILY daptomycin in 0.9 % sod chlor 500 mg/50 mL piggyback 660 mg IV DAILY Rx Instructions: administer over 30 mins Discontinued metoprolol tartrate 25 mg tablet 25 mg PO BID Qty: 180 3RF insulin glargine U-300 conc [Toujeo SoloStar U-300 Insulin] 300 unit/mL (1.5 mL) insulin pen 25 unit subcut DAILY Qty: 9 3RF Discharge Orders: Discharge Order (Routine); Ordered 11/16/23 Ordered By: Joseluis Blair Discharge Order- CHF (Routine); Ordered 11/16/23 Ordered By: Joseluis Blair Admission Data Admit Date/Time: 11/13/23 10:34 Attending Provider: Joseluis Blair Admit Provider: Sheng Nielson Primary Care Provider: Guilherme Moe Other Providers: Sheng Nielson; [facility] Other Interventions: Discharge Summary Assessment (RN) Last Done: 11/15/23 13:02 Coding Level of Care Code 85259 INP/OBS DISCH >30 MIN Diagnoses Hospital-acquired pneumonia J18.9; Y95 Acute congestive heart failure, unspecified heart failure type I50.9 Heart failure type: unspecified Osteomyelitis of toe of right foot M86.9 Paroxysmal atrial fibrillation I48.0 Factor V Leiden mutation D68.51 Coronary artery disease involving [place] coronary artery of [place] heart without angina pectoris I25.10 Coronary Disease-Associated Artery/Lesion type: [place] artery [place] vs. transplanted heart: [place] heart Associated angina: without angina Acquired hypothyroidism E03.9 Hypothyroidism type: acquired Type 1 diabetes mellitus with complications E10.8
[2023-11-16 15:55] VITALS: BP 146/66; RESP 15; TEMP 98.2; O2SAT 93
[2023-11-16 16:27] VITALS: PULSE 92
[2023-11-16] MEDS ORDERED: LANTUS PER UNIT CHARGE SQ SCH (21:00)
== END 2023-11-16 17:45 | DRG 291 ==
LOC: ED 12:15 → 3W 12:15 → SUATTDRO 17:09 → 3W 18:24 → 2W 22:17 → SUATTDRO 11-13 10:34

== ENCOUNTER 2024-07-26 13:23 | Inpatient (IN) ==
[2024-07-26] MEDS ORDERED: VANCOMYCIN CONSULT ACTIVE PRN (18:07)
[2024-07-26] MEDS ORDERED: Patient's HEIGHT &/or WEIGHT Needed STA (18:12)
[2024-07-26] MEDS ORDERED: PHARMACY GLYCEMIC MGMT CONSULT PRN (18:37)
[2024-07-26] MEDS ORDERED: GLUCOSE 10 TAB/TUBE PO PRN (18:37)
[2024-07-26] MEDS ORDERED: GLUCOSE 40% GEL 15 GM TUBE PO PRN (18:37)
[2024-07-26] MEDS ORDERED: GLUCAGON FOR INJ 1 MG VIAL SQ PRN (18:37)
[2024-07-26] MEDS ORDERED: DEXTROSE 50% 50 ML SYRINGE IV PRN (18:37)
[2024-07-26] MEDS ORDERED: CARBOHYDRATES FOR HYPOGLYCEMIA PO PRN (18:37)
[2024-07-26 18:47] LABS: Basophils # (auto) 0.03 K/uL (0.00-0.20); Basophils % (auto) 0.4 %; Eosinophils # (auto) 0.26 K/uL (0.00-0.50); Eosinophils % (auto) 3.7 %; Hemoglobin 11.2 g/dl (14.0-18.0); Immature Granulocytes # (auto) 0.04 K/uL (0.01-0.20); Immature Granulocytes % (auto) 0.6 %; Lymphocytes # (auto) 0.93 K/uL (1.20-3.40); Lymphocytes % (auto) 13.3 %; Mean Corpuscular Hemoglobin 32.1 pg (25.0-34.0); Mean Corpuscular Hgb Conc 33.9 g/dL (32.0-36.0); Mean Corpuscular Volume 94.6 fL (80.0-100.0); Monocytes # (auto) 0.66 K/uL (0.11-0.59); Monocytes % (auto) 9.5 %; Neutrophils # (auto) 5.05 K/uL (1.40-6.50); Neutrophils % (auto) 72.5 %; Platelet Count 195 K/uL (130-400); RDW Coefficient of Variation 12.6 % (11.5-14.5); RDW Standard Deviation 43.5 fL (36.4-46.3); Red Blood Count 3.49 M/uL (4.70-6.10); White Blood Count 6.97 K/ul (4.8-10.8)
[2024-07-26 19:06] LABS: Alanine Aminotransferase 50 U/L (7-52); Albumin Globulin Ratio 1.4 (0.9-2); Albumin Level 3.6 gm/dl (3.4-5.0); Alkaline Phosphatase 62 U/L (34-104); Anion Gap 5 (3-11); Aspartate Aminotransferase 71 U/L (13-39); BUN Creatinine Ratio 17.9 (10-20); Bilirubin,Total 0.6 mg/dl (0.2-1.0); Blood Urea Nitrogen 33 mg/dl (6-23); Calcium 8.5 mg/dl (8.6-10.3); Carbon Dioxide 26 mmol/L (21-32); Chloride 105 mmol/L (98-107); Globulin 2.5 gm/dl (2.5-4.0); Glucose 186 mg/dl (70-99(Fasting)); Magnesium 1.9 mg/dl (1.7-2.4); Potassium 4.7 mmol/L (3.5-5.1); Sodium 136 mmol/L (136-145); Total Protein 6.1 gm/dl (6.0-8.3)
[2024-07-26 19:15] LABS: INR 1.3 (0.9-1.1); Prothrombin Time 13.4 Seconds (9.0-12.0)
[2024-07-26] MEDS ORDERED: Patient's HEIGHT &/or WEIGHT Needed SCH (19:15)
--- NOTE | 2024-07-26 20:21 | History & Physical Report ---
Date of Service July 26, 2024 Assessment & Plan (1) Osteomyelitis of toe of right foot: Plan: Based on CT scan At [facility] - images uploaded to [facility] Will continue vancomycin, Levaquin + metronidazole Follow up wound culture at [facility] Consult podiatry (discussed with Dr Gilbert on admission), NPO after midnight for possible surgical intervention (2) Diabetes type 1, uncontrolled: Plan: Hemoglobin A1c 7.6 in June, no need to repeat Will split his basal dosing to 30 units SQ BID holding his morning dose prior to any potential surgical treatment NovoLog: --Goal BSG Range: Low 110 mg/dL, High 140 mg/dL --Correction Factor: 15 mg/dL/unit --Carbohydrate ratio = 5 g/unit --BSGs ACHS if eating, q6h if npo Consult pharmacy for ongoing glycemic control (3) Paroxysmal atrial fibrillation: Plan: Currently present regular rhythm Prior maze procedure Continue metoprolol titrate 25 mg p.o. BID Plan ROSENDO - CPAP HS CAD -continue aspirin, metoprolol, atorvastatin, isosorbide mononitrate Hypothyroidism - TSH WNL in June, continue levothyroxine BPH - continue doxazosin and finasteride VTE prophylaxis - with reduced renal function will give 40 mg Lovenox subcu now and defer additional dosing pending decision regarding surgical treatment, patient is on warfarin as outpatient for hypercoagulable state Diet - T1DM, NPO after midnight Disposition - admit to med/surg Admission and Anticipated Discharge Date Admission Date: July 26, 2024 History of Present Illness Chief Complaint: Right fourth toe infection Primary Care Provider: DO Sheng Yeh Gurjit is an 83-year-old male who presents as a direct admission from [facility] due to right fourth toe osteomyelitis. He initially went to [facility] ER on July 21 with 2 days of erythema from his right fourth toe spreading up his foot to his ankle. Minimal pain although he has neuropathy at baseline. Draining sanguinous purulent discharge. CT in the emergency room showed suspected mild erosion of the proximal phalanx of the fourth toe likely representing soft tissue infection with possible involvement of underlying bone. Wound culture grew staph although unknown if this was MRSA or MSSA. Blood cultures negative to date. Initial plan was for transfer to [place] or have local orthopedic evaluation at [facility] pending transfer. Reportedly after several days awaiting for a bed; the orthopedic surgeon at [facility] reported he does not operate on feet therefore we were contacted for transfer. His warfarin has been held and switched to Lovenox 120 mg subcu daily with last dose July 25. He has been treated with vancomycin, Levaquin, metronidazole for osteomyelitis. He is under Dr Gilbert as an outpatient. Patient currently reports no pain, fever or chills. Reports erythema has been improving. Allergies Allergy/AdvReac Type Severity Reaction Status Date / Time clindamycin Allergy Intermediate Rash Verified 07/13/24 14:13 lisinopril Allergy Intermediate falling Verified 07/13/24 14:13 down ? Penicillins Allergy Intermediate Hives Verified 07/13/24 14:13 Sulfa (Sulfonamide Allergy Intermediate HIVES Verified 07/13/24 14:13 Antibiotics) cashew nut Allergy Unknown Unknown Verified 07/13/24 14:13 peanut Allergy Unknown Unknown Verified 07/13/24 14:13 Home Medications Medication Instructions Recorded Confirmed Type multivitamin 1 tab PO QDL ##0 11/28/08 07/26/24 History fluticasone propionate 50 2 sprays intranasal DAILY PRN 01/10/19 07/26/24 History mcg/actuation nasal Nasal Congestion spray,suspension thiamine HCl (vitamin B1) 100 mg 100 mg PO QDL 01/10/19 07/26/24 History tablet aspirin 81 mg tablet,delayed 81 mg PO QAM 11/10/19 07/26/24 History release cholecalciferol (vitamin D3) 50 50 mcg PO DAILY 07/31/20 07/26/24 History mcg (2,000 unit) capsule acetone (urine) test (Ketone Urine #50 ea 08/05/21 07/10/24 Rx Test strips) FreeStyle Anna 2 Sensor (flash #2 ea 11/27/21 07/10/24 Rx glucose sensor) polyethylene glycol 3350 17 17 g PO DAILY 12/01/21 07/26/24 History gram/dose oral powder (Miralax) nitroglycerin 0.4 mg sublingual 0.4 mg sublingual UD PRN Chest 06/21/23 07/26/24 Rx tablet (Nitrostat) Pain #100 tabs isosorbide mononitrate 30 mg 30 mg PO DAILY #90 tabs 07/16/23 07/26/24 Rx tablet,extended release 24 hr doxazosin 2 mg tablet 2 mg PO DAILY 09/08/23 07/26/24 History pen needle, diabetic 31 gauge x #200 ea 09/08/23 07/10/24 Rx 1/4" (Comfort EZ Pen [place]) blood sugar diagnostic (OneTouch #180 ea 11/09/23 07/10/24 Rx Verio test strips) blood-glucose meter (OneTouch #1 ea 11/09/23 07/10/24 Rx Verio Flex Meter) insulin glargine 100 unit/mL 26 unit (0.26 mL) subcut QPM #0 mL 11/23/23 07/26/24 Rx subcutaneous solution (Lantus U-100 Insulin) azelastine 137 mcg (0.1 %) nasal See Rx Instructions .Route 11/26/23 07/26/24 Rx spray .COMPLEX #60 mL levothyroxine 25 mcg tablet 25 mcg PO QAM #90 tabs 11/30/23 07/26/24 Rx potassium chloride 10 mEq 10 meq PO DAILY 90 days #90 tabs 12/27/23 07/26/24 Rx tablet,extended release atorvastatin 40 mg tablet 40 mg PO DAILY #90 tabs 01/11/24 07/26/24 Rx finasteride 5 mg tablet 5 mg PO DAILY #90 tabs 02/22/24 07/26/24 Rx ipratropium 20 mcg-albuterol 100 1 puff inhalation Q6H PRN 03/17/24 07/26/24 Rx mcg/actuation mist for inhalation shortness of breath or wheezing #4 (Combivent Respimat) grams lutein 10 mg tablet 10 mg PO DAILY 06/16/24 07/26/24 History torsemide 10 mg tablet 10 mg PO DAILY #90 tabs 06/16/24 07/26/24 Rx insulin lispro 100 unit/mL See Rx Instructions subcut TID 06/20/24 07/26/24 Rx subcutaneous pen (Humalog KwikPen #105 mL (U-100) Insulin) warfarin 5 mg tablet See Rx Instructions PO .COMPLEX 07/03/24 07/26/24 Rx #90 tabs glucagon HCl 1 mg solution for 1 mg subcut Q20M PRN hypoglycemia 07/06/24 07/26/24 Rx injection (Glucagon (HCl) #1 ea Emergency Kit) metoprolol tartrate 25 mg tablet 25 mg PO BID #180 tabs 07/06/24 07/26/24 Rx folic acid 1 mg tablet 1 mg PO DAILY #90 tabs 07/13/24 07/26/24 Rx Past Med/Surg History Problem List (Updated 07/27/24 @ 01:08 by Sylvain Walker MD) Paroxysmal atrial fibrillation Osteomyelitis of toe of right foot Diabetic foot ulcers Hypothyroidism Heart failure with preserved ejection fraction Abnormal PFTs Dyspnea on exertion Acute CHF (congestive heart failure) Aortic stenosis S/P CABG x 3 Multi-vessel coronary artery stenosis Atrial fibrillation with rapid ventricular response (Acute) Anticoagulant long-term use (Chronic) 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) Complex sleep apnea syndrome (Chronic) GERD without esophagitis (Chronic) Kidney disease, chronic, stage II (mild, 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) Proteinuria (Chronic) Vertebral artery stenosis/occlusion (Chronic) Dyslipidemia (Chronic) Nocturnal hypoxemia (Chronic) Hypertension (Chronic) Carotid stenosis, left (Chronic) Right rotator cuff tear (Chronic) 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) History of diabetic ulcer of foot Background diabetic retinopathy associated with type 1 diabetes mellitus (Chronic) 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 (Chronic) Diabetes type 1, uncontrolled (Chronic) Falls frequently History of non-ST elevation myocardial infarction (NSTEMI) History of CVA (cerebrovascular accident) Anti-cardiolipin antibody positive (Chronic) Medical History Peripheral arterial disease Murmur Trigger finger, right ring finger Lump of left thigh Urinary retention Vitamin D deficiency Positional vertigo Vitamin B 12 deficiency Chronic fatigue disorder Strain of left rotator cuff capsule Nocturia Microscopic hematuria Gout Glaucoma Visual field defect Factor V Leiden mutation Alcohol abuse Vitamin D deficiency Primary hypercoagulable state Surgical History History of surgical removal of ganglion cyst History of hydrocelectomy History of hand surgery S/P coronary artery stent placement H/O hernia repair Hx of appendectomy Family History Mother COPD (chronic obstructive pulmonary disease) Coronary heart disease Heart disease Diabetes Hypertension Father Melanoma Heart disease Hypertension Brother Coronary heart disease Hypertension Myocardial infarction Son Diabetes Denies family history of Ovarian cancer Prostate cancer Breast cancer Lung cancer Colorectal cancer Stroke Social History Smoking Status: Never smoker Second Hand Exposure: Yes (As a child, parents smoked); Do You Dip or Chew Tobacco: No; Hx Alcohol Use: No Hx Substance Use: No Preferred Language: Persian Communication Ability: Effective Communication Ability Comment: expressive and receptive aphasia Visual Impairment: No Limitations Hearing Ability: Normal Nurse Advocate Required: No Beliefs That Will Affect Care: None marital status: Current Living Situation: Spouse current occupational status: retired 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 How many Children do You have: 2 Other Information That Helps Us Care for You: No Feels Safe at Home: Yes Safety Concerns: Feels Safe At This Time Childhood Exposure to Second-Hand Smoke: Yes Diet: regular caffeine: Yes Dental Care, Regularly: Yes Physical Activity Frequency: Does not Exercise Seatbelt Use: always Sunscreen Use: Yes Assistive Devices: Cane Review of Systems 2 Review of Systems: All systems reviewed & are unremarkable except as noted in HPI & below Physical Exam 2 Constitutional: WD/WN, vitals as above Respiratory: normal respiratory effort, lungs clear to auscultation Cardiovascular: RRR, no murmur, no edema Gastrointestinal (Abdomen): normal bowel sounds, soft, nontender, no hepatosplenomegaly Skin: Ulcer on dorsal aspect of fourth toe with surrounding erythema and swelling to the midfoot. Normal capillary refill in distal toes with reduced sensation. Psychiatric: A+Ox3, euthymic affect Results & Data Results & Data Vital Signs (Past 12 Hours) Vital Signs Temp Resp BP Pulse Ox O2 Del Method 07/26/24 18:25 36.7 C 20 136/60 98 Room Air Laboratory Results Abnormal lab results 07/26/24 07/26/24 07/26/24 Range/Units 17:17 18:19 21:02 RBC 3.49 L (4.70-6.10) M/uL Hgb 11.2 L (14.0-18.0) g/dl Hct 33.0 L (42.0-52.0) % Lymph # (Auto) 0.93 L (1.20-3.40) K/uL O'Brien # (Auto) 0.66 H (0.11-0.59) K/uL ESR 28 H (0-20) mm/hr PT 13.4 H (9.0-12.0) Seconds INR 1.3 H (0.9-1.1) BUN 33 H (6-23) mg/dl Creatinine 1.84 H (0.6-1.4) mg/dl Glucose 186 H (70-99(Fasting)) mg/dl POC Glucose 141 H 217 H (70-99) mg/dl Calcium 8.5 L (8.6-10.3) mg/dl AST 71 H (13-39) U/L C-Reactive Protein 2.05 H (0-0.5) mg/dl Code Status & VTE Plan Code Status Full VTE Prophylaxis Plan VTE Prophylaxis will be ordered: Yes PG Care Time/CCT Total # of Minutes Spent Total Time Spent with Patient: Total time spent is greater than 50% in coordination of care (as documented) at patient's floor/unit and/or counseling patient: Coding Level of Care Code 10991 INT INP/OBS CARE 3/75MIN Diagnoses Osteomyelitis of toe of right foot M86.9 Diabetes type 1, uncontrolled E10.65 Paroxysmal atrial fibrillation I48.0
[2024-07-26] MEDS ORDERED: levoFLOXacin/D5W 750 MG/150 ML BAG IV ONE (20:30)
[2024-07-26] MEDS: metroNIDAZOLE 500 MG/100 ML BAG IV SCH (21:01)
[2024-07-26] MEDS: LANTUS PER UNIT CHARGE SQ SCH (21:14)
[2024-07-26] MEDS: INSULIN ASPART PER UNIT CHARGE SC SCH (21:14)
[2024-07-26] MEDS: VANCOMYCIN HCL 1,000 MG/270 ML BAG IV ONE (21:21)
[2024-07-26 21:41] LABS: C Reactive Protein 2.05 mg/dl (0-0.5)
[2024-07-26] MEDS: ENOXAPARIN INJ 40 MG/0.4 ML SYR SQ ONE (22:36)
[2024-07-26] MEDS: ACETAMINOPHEN 325 MG TAB PO STA (23:44)
[2024-07-26] MEDS: SODIUM CHLORIDE 0.9% 1,000 ML IV SCH (23:46)
[2024-07-27] MEDS: levoFLOXacin/D5W 750 MG/150 ML BAG IV SCH (00:57)
[2024-07-27] MEDS: LEVOTHYROXINE SODIUM 25 MCG TABLET PO SCH (05:13)
[2024-07-27 06:33] LABS: Basophils # (auto) 0.04 K/uL (0.00-0.20); Basophils % (auto) 0.7 %; Eosinophils # (auto) 0.25 K/uL (0.00-0.50); Eosinophils % (auto) 4.4 %; Hematocrit (blood only) 33.7 % (42.0-52.0); Hemoglobin 11.7 g/dl (14.0-18.0); Immature Granulocytes # (auto) 0.05 K/uL (0.01-0.20); Immature Granulocytes % (auto) 0.9 %; Lymphocytes # (auto) 0.95 K/uL (1.20-3.40); Lymphocytes % (auto) 16.6 %; Mean Corpuscular Hemoglobin 32.2 pg (25.0-34.0); Mean Corpuscular Hgb Conc 34.7 g/dL (32.0-36.0); Mean Corpuscular Volume 92.8 fL (80.0-100.0); Mean Platelet Volume 9.8 fL (9.4-12.4); Monocytes # (auto) 0.52 K/uL (0.11-0.59); Monocytes % (auto) 9.1 %; Neutrophils % (auto) 68.3 %; Platelet Count 191 K/uL (130-400); RDW Coefficient of Variation 12.3 % (11.5-14.5); RDW Standard Deviation 42.5 fL (36.4-46.3); Red Blood Count 3.63 M/uL (4.70-6.10); White Blood Count 5.71 K/ul (4.8-10.8)
[2024-07-27 06:40] LABS: Albumin Globulin Ratio 1.3 (0.9-2); Albumin Level 3.4 gm/dl (3.4-5.0); BUN Creatinine Ratio 19.7 (10-20); Bilirubin,Total 0.7 mg/dl (0.2-1.0); Calcium 8.5 mg/dl (8.6-10.3); Creatinine Clr Calc Pharmacy 46.5 ml/min; Globulin 2.6 gm/dl (2.5-4.0); Potassium 4.1 mmol/L (3.5-5.1)
[2024-07-27] MEDS: ASPIRIN 81 MG ECTAB PO SCH (09:18)
[2024-07-27] MEDS: ISOSORBIDE MONO EXTENDED REL 30 MG TABCR PO SCH (09:18)
[2024-07-27] MEDS: ATORVASTATIN 40 MG TAB PO SCH (09:18)
[2024-07-27] MEDS: METOPROLOL TARTRATE 25 MG TAB PO SCH (09:18)
[2024-07-27] MEDS: DOXAZosin MESYLATE TAB 2 MG TAB PO SCH (09:18)
[2024-07-27] MEDS: POLYETHYLENE (MIRALAX) 17 GM PACK PO SCH (09:19)
[2024-07-27] MEDS: FINASTERIDE 5 MG TAB PO SCH (09:19)
[2024-07-27] MEDS: VANCOMYCIN HCL 1,250 MG in SODIUM CHLORIDE 0.9% 250 ML IV SCH (09:23)
[2024-07-27] MEDS: LANTUS PER UNIT CHARGE SQ SCH (09:30)
--- NOTE | 2024-07-27 10:04 | Pharmacy Report ---
Pharmacy PK ABX Note - Date of Service July 27, 2024 - Assessment and Plan Assessment 83 year old M receiving vancomycin for treatment of osteomyelitis of right toe. Pertinent microbiologic data includes: outside hospital wound cx growing Staph Day # 2 of antimicrobial therapy. Plan Vancomycin * Loading dose: no loading dose, patient got 1 gm BIZTALK CONSULTANT in previous hospital, and 1 gm last evening * Maintenance dose: 1250 mg IV every 24 hours based on vanco levels listed below * Vanco levels drawn yesterday evening and today morning resulted at 12.8 mcg/mL and 13.6 mcg/mL respectively. * Regimen is predicted to achieve target AUC/JORDAN of 400-600 mg/L.hr * Try to see if outside hospital cultures are updated. Pt with possible surgical intervention today which may yield new cultures in that case. Pharmacy will continue to follow and will adjust dose/frequency as necessary. Thank you. Pharmacy has transitioned to AUC monitoring for vancomycin. AUC/JORDAN is the preferred PK/PD target and is associated with decreased risk of nephrotoxicity compared to traditional trough targets.
--- NOTE | 2024-07-27 10:15 | Pharmacy Report ---
Pharmacy Glycemic Short Note 2 - Date of Service July 27, 2024 - Glycemic Short BSG Results (Last 24 hours): 07/26/24 07/26/24 07/26/24 17:17 18:19 21:02 Glucose 186 H POC Glucose 141 H 217 H 07/27/24 07/27/24 05:55 08:51 Glucose 135 H POC Glucose 141 H OUTPATIENT ANTIDIABETIC REGIMEN: * Lantus 26 u HS, Humalog CR 1u/4-7 gm of carbs throughout the day * Last A1c was 7.6 on 06.22.24 ASSESSMENT: * BSGs relatively well controlled since admission in goal range with just one high reading at 217 last night. * Pt NPO for possible surgical intervention related to his infected right toe. * Pt got 13 units of Lantus yesterday (takes 26 u at home) so will give another 10 units this morning * For NovoLog will utilize carb ratio close to patients home regimen. PLAN FOR INPATIENT GLYCEMIC CONTROL: * Basal insulin * Lantus 10 units this morning * Bolus insulin * NovoLog per scale ACHS or Q6hrs while NPO * Goal Range: Low 110 mg/dL - High 140 mg/dL * Correction Factor: 45 mg/dL/unit * Nutritional / Prandial insulin per carb ratio of 1 unit per 5 grams CHO consumed
--- NOTE | 2024-07-27 14:06 | Podiatry Consultation ---
Date of Consultation July 27, 2024 Assessment & Plan (1) Osteomyelitis of toe of right foot: (2) Diabetic foot ulcers: Diabetes mellitus type: type 1 Diabetic foot ulcer location: toe Laterality: right Non-pressure ulcer stage: limited to breakdown of skin Qualified Code(s): E10.621 - Type 1 diabetes mellitus with foot ulcer; L97.511 - Non-pressure chronic ulcer of other part of right foot limited to breakdown of skin Plan Patient examined and evaluated. Has been NPO today, but no time on the OR side or my schedule to have it done. Will plan for right fourth toe amputation on 07/28/23. Case will be added on and likely after 4:00PM. Can likely d/c home as early as Wednesday on 1-2 weeks oral antibiotics with clinical clean margins expected. Amputation will be a disarticulation of the toe at MTPJ, which will excise all nonviable tissue. Will obtain consent for the procedure preoperatively. Patient understands and is amenable to this plan of care. Thank you for the consult. We are happy to help whenever possible. History of Present Illness Reason for Consultation: Right fourth toe osteomyelitis Attending Physician: Phani Devlin History of Present Illness Patient seen at bedside. States he presented to [facility] here in town late last week and was admitted for treatment of right fourth toe osteomyelitis. He has dealt with foot ulcers and infection for over a year now, though initially to the the right hallux. Now, the fourth toe has failed to improve with IV antibiotics and fdc wound care. He had planned to be transferred to [facility] but no beds became available, so was transferred here. He denies any current systemic signs of infection and believes he has improved over the last two to three days on IV antibiotics. Still, he understands that the fourth toe is infected and has come to terms with the need for an amputation. Allergies Allergy/AdvReac Type Severity Reaction Status Date / Time clindamycin Allergy Intermediate Rash Verified 07/13/24 14:13 lisinopril Allergy Intermediate falling Verified 07/13/24 14:13 down ? Penicillins Allergy Intermediate Hives Verified 07/13/24 14:13 Sulfa (Sulfonamide Allergy Intermediate HIVES Verified 07/13/24 14:13 Antibiotics) cashew nut Allergy Unknown Unknown Verified 07/13/24 14:13 peanut Allergy Unknown Unknown Verified 07/13/24 14:13 Home Medications Medication Instructions Recorded Confirmed Type multivitamin 1 tab PO QDL ##0 11/28/08 07/26/24 History fluticasone propionate 50 2 sprays intranasal DAILY PRN 01/10/19 07/26/24 History mcg/actuation nasal Nasal Congestion spray,suspension thiamine HCl (vitamin B1) 100 mg 100 mg PO QDL 01/10/19 07/26/24 History tablet aspirin 81 mg tablet,delayed 81 mg PO QAM 11/10/19 07/26/24 History release cholecalciferol (vitamin D3) 50 50 mcg PO DAILY 07/31/20 07/26/24 History mcg (2,000 unit) capsule acetone (urine) test (Ketone Urine #50 ea 08/05/21 07/10/24 Rx Test strips) FreeStyle Anna 2 Sensor (flash #2 ea 11/27/21 07/10/24 Rx glucose sensor) polyethylene glycol 3350 17 17 g PO DAILY 12/01/21 07/26/24 History gram/dose oral powder (Miralax) nitroglycerin 0.4 mg sublingual 0.4 mg sublingual UD PRN Chest 06/21/23 07/26/24 Rx tablet (Nitrostat) Pain #100 tabs isosorbide mononitrate 30 mg 30 mg PO DAILY #90 tabs 07/16/23 07/26/24 Rx tablet,extended release 24 hr doxazosin 2 mg tablet 2 mg PO DAILY 09/08/23 07/26/24 History pen needle, diabetic 31 gauge x #200 ea 09/08/23 07/10/24 Rx 1/4" (Comfort EZ Pen [place]) blood sugar diagnostic (OneTouch #180 ea 11/09/23 07/10/24 Rx Verio test strips) blood-glucose meter (OneTouch #1 ea 11/09/23 07/10/24 Rx Verio Flex Meter) insulin glargine 100 unit/mL 26 unit (0.26 mL) subcut QPM #0 mL 11/23/23 07/26/24 Rx subcutaneous solution (Lantus U-100 Insulin) azelastine 137 mcg (0.1 %) nasal See Rx Instructions .Route 11/26/23 07/26/24 Rx spray .COMPLEX #60 mL levothyroxine 25 mcg tablet 25 mcg PO QAM #90 tabs 11/30/23 07/26/24 Rx potassium chloride 10 mEq 10 meq PO DAILY 90 days #90 tabs 12/27/23 07/26/24 Rx tablet,extended release atorvastatin 40 mg tablet 40 mg PO DAILY #90 tabs 01/11/24 07/26/24 Rx finasteride 5 mg tablet 5 mg PO DAILY #90 tabs 02/22/24 07/26/24 Rx ipratropium 20 mcg-albuterol 100 1 puff inhalation Q6H PRN 03/17/24 07/26/24 Rx mcg/actuation mist for inhalation shortness of breath or wheezing #4 (Combivent Respimat) grams lutein 10 mg tablet 10 mg PO DAILY 06/16/24 07/26/24 History torsemide 10 mg tablet 10 mg PO DAILY #90 tabs 06/16/24 07/26/24 Rx insulin lispro 100 unit/mL See Rx Instructions subcut TID 06/20/24 07/26/24 Rx subcutaneous pen (Humalog KwikPen #105 mL (U-100) Insulin) warfarin 5 mg tablet See Rx Instructions PO .COMPLEX 07/03/24 07/26/24 Rx #90 tabs glucagon HCl 1 mg solution for 1 mg subcut Q20M PRN hypoglycemia 07/06/24 07/26/24 Rx injection (Glucagon (HCl) #1 ea Emergency Kit) metoprolol tartrate 25 mg tablet 25 mg PO BID #180 tabs 07/06/24 07/26/24 Rx folic acid 1 mg tablet 1 mg PO DAILY #90 tabs 07/13/24 07/26/24 Rx Patient History Medical History Peripheral arterial disease Murmur Trigger finger, right ring finger Lump of left thigh Urinary retention Vitamin D deficiency Positional vertigo Vitamin B 12 deficiency Chronic fatigue disorder Strain of left rotator cuff capsule Nocturia Microscopic hematuria Gout Glaucoma Visual field defect Factor V Leiden mutation Alcohol abuse Vitamin D deficiency Primary hypercoagulable state Surgical History History of surgical removal of ganglion cyst History of hydrocelectomy History of hand surgery S/P coronary artery stent placement H/O hernia repair Hx of appendectomy Family History Mother , in her 60s of heart disease COPD (chronic obstructive pulmonary disease) Coronary heart disease Heart disease CHF Diabetes Hypertension Father , age 62 of melanoma Melanoma Heart disease Hypertension Brother Coronary heart disease Hypertension Myocardial infarction Son Diabetes Denies family history of Ovarian cancer Prostate cancer Breast cancer Lung cancer Colorectal cancer Stroke Social History Smoking Status: Never smoker Second Hand Exposure: Yes (As a child, parents smoked); Do You Dip or Chew Tobacco: No; Hx Alcohol Use: No Hx Substance Use: No Preferred Language: Singaporean Communication Ability: Effective Communication Ability Comment: expressive and receptive aphasia Visual Impairment: No Limitations Hearing Ability: Normal Paver Operator Required: No Beliefs That Will Affect Care: None marital status: Current Living Situation: Spouse current occupational status: retired 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 How many Children do You have: 2 Feels Safe at Home: Yes Childhood Exposure to Second-Hand Smoke: Yes Diet: regular caffeine: Yes Dental Care, Regularly: Yes Physical Activity Frequency: Does not Exercise Seatbelt Use: always Sunscreen Use: Yes Assistive Devices: BiPap, Cane, Glasses and Stair Lift Review of Systems Review of Systems: All systems reviewed & are unremarkable except as noted in HPI & below Constitutional: no fever, no chills and no fatigue Eyes: no problem reported Ear, Nose, Mouth, Throat: no problem reported Respiratory: no problem reported Cardiovascular: + edema; no problem reported Gastrointestinal: no nausea, no vomiting and no problem reported Musculoskeletal: no problem reported Integumentary: + skin ulcer, + wounds and + erythema Neurologic: + loss of sensation, + numbness and + pa resthesia; no generalized weakness Psychiatric: no problem reported Physical Exam Physical Exam: Lower extremity exam: DP/PT pulses nonpalpable. CFT brisk to digits. Right fourth toe ulcerated with underlying abscess. The ulcer does extend directly to the head of the proximal phalanx. No new purulent drainage is noted today on clinical exam. The prior hallux ulceration is well healed at this time. Cellulitis/localized erythema noted to forefoot, confined to prior marked off area of the forefoot. Constitutional: WD/WN, vitals as above + ill appearing and + obese Eyes: PERRL, conjunctivae normal, anicteric sclerae ENMT: external ear and nose normal, oropharynx normal Neck: trachea midline, no thyromegaly normal visual inspection Respiratory: normal respiratory effort; no respiratory distress Cardiovascular: Rate/Rhythm: regular rate and regular rhythm Chest (Breasts): Chest: normal inspection of chest Gastrointestinal (Abdomen): Inspection/Auscultation: abdomen normal to inspection Percussion/Palpation: + abdomen tender and abdomen soft Musculoskeletal: no cyanosis or clubbing, extremities motor strength 5/5 Head/Neck/Chest: normocephalic and head atraumatic Extremities: extremities normal to inspection Skin: + ulcer, + wound, + dry skin, + erythema and + fluctulance Neurologic: awake; no focal motor deficits Psychiatric: A+Ox3, euthymic affect Results & Data Vital Signs (Past 12 Hours) Vital Signs Temp Pulse Resp BP BP Pulse Ox O2 Del Method 07/27/24 11:47 36.8 C 63 20 133/78 99 Room Air 07/27/24 08:03 36.8 C 69 18 127/47 L 99 Room Air 07/27/24 04:57 36.7 C 75 20 147/76 H 97 Room Air Diagnostic Findings Radiographs and CT scan suggest erosions to proximal phalanx of fourth toe, which is consistent with clinical exam, where head of proximal phalanx is immediately palpable. This is based on review of the report, with no images available from prior hospital.
[2024-07-27] MEDS: LANTUS PER UNIT CHARGE SC SCH (20:49)
[2024-07-27] MEDS ORDERED: LANTUS PER UNIT CHARGE SQ ONE (21:00)
--- NOTE | 2024-07-27 22:53 | Hospitalist Progress Note ---
Date of Service July 27, 2024 Assessment & Plan (1) Osteomyelitis of toe of right foot: Plan: Based on CT scan At [facility] - images uploaded to [employer] web Will continue vancomycin, Levaquin + metronidazole Follow up wound culture at [facility] Consult podiatry (discussed with Dr Gilbert on admission), NPO after midnight for possible surgical intervention for 07/28 Started diet. continue antibiotics (2) Diabetes type 1, uncontrolled: Plan: Hemoglobin A1c 7.6 in June, no need to repeat Will split his basal dosing to 30 units SQ BID holding his morning dose prior to any potential surgical treatment NovoLog: --Goal BSG Range: Low 110 mg/dL, High 140 mg/dL --Correction Factor: 15 mg/dL/unit --Carbohydrate ratio = 5 g/unit --BSGs ACHS if eating, q6h if npo Consult pharmacy for ongoing glycemic control (3) Paroxysmal atrial fibrillation: Plan: Currently present regular rhythm Prior maze procedure Continue metoprolol titrate 25 mg p.o. BID Plan ROSENDO - CPAP HS CAD -continue aspirin, metoprolol, atorvastatin, isosorbide mononitrate Hypothyroidism - TSH WNL in June, continue levothyroxine BPH - continue doxazosin and finasteride VTE prophylaxis - with reduced renal function will give 40 mg Lovenox subcu now and defer additional dosing pending decision regarding surgical treatment, patient is on warfarin as outpatient for hypercoagulable state Diet - T1DM, NPO after midnight Disposition - admit to med/surg Admission and Anticipated Discharge Date Admission Date: July 26, 2024 Subjective Patient reports no new symptoms. Physical Exam Constitutional: WD/WN, vitals as above Respiratory: normal respiratory effort, lungs clear to auscultation Cardiovascular: RRR, no murmur, no edema Gastrointestinal (Abdomen): normal bowel sounds, soft, nontender, no hepatosplenomegaly Psychiatric: A+Ox3, euthymic affect Results & Data Results & Data Vital Signs (Past 12 Hours) Vital Signs Temp Pulse Resp BP BP Pulse Ox O2 Del Method 07/27/24 20:27 36.8 C 70 16 135/70 97 Room Air 07/27/24 15:55 36.5 C 69 18 109/45 L 96 Nasal Cannula 07/27/24 11:47 36.8 C 63 20 133/78 99 Room Air PG Care Time/CCT Total # of Minutes Spent Total Time Spent with Patient: Total time spent is greater than 50% in coordination of care (as documented) at patient's floor/unit and/or counseling patient: Coding Level of Care Code 46790 SUB INP/OBS CARE 2/35MIN Diagnoses Osteomyelitis of toe of right foot M86.9 Diabetes type 1, uncontrolled E10.65 Paroxysmal atrial fibrillation I48.0
[2024-07-28 06:30] LABS: Hematocrit (blood only) 32.5 % (42.0-52.0); Hemoglobin 11.2 g/dl (14.0-18.0); Mean Corpuscular Hgb Conc 34.5 g/dL (32.0-36.0); Mean Corpuscular Volume 92.9 fL (80.0-100.0); Mean Platelet Volume 9.9 fL (9.4-12.4); Platelet Count 184 K/uL (130-400); RDW Coefficient of Variation 12.6 % (11.5-14.5); RDW Standard Deviation 42.6 fL (36.4-46.3); White Blood Count 6.68 K/ul (4.8-10.8)
[2024-07-28 06:37] LABS: C Reactive Protein 1.23 mg/dl (0-0.5); Calcium 8.6 mg/dl (8.6-10.3); Potassium 4.1 mmol/L (3.5-5.1)
[2024-07-28] MEDS ORDERED: LANTUS PER UNIT CHARGE SQ SCH (09:00)
[2024-07-28] MEDS: VANCOMYCIN LEVEL ONE (10:31)
--- NOTE | 2024-07-28 10:47 | Pharmacy Report ---
Pharmacy PK ABX Note - Date of Service July 28, 2024 - Assessment and Plan Assessment 07/28 * Vancomycin random level this AM ~11 mcg/ml - current vancomycin dosing estimated to achieve goal AUC/JORDAN therefore will continue current regimen. 07/27: * 83 year old M receiving vancomycin for treatment of osteomyelitis of right toe. Pertinent microbiologic data includes: outside hospital wound cx growing Staph * Day # 2 of antimicrobial therapy. Plan Vancomycin * Continue vancomycin 1250 mg iv q 24 hours * Patient with toe amputation scheduled for today * Still awaiting updated culture information from wound cultures at [facility]SH Pharmacy will continue to follow and will adjust dose/frequency as necessary. Thank you. Pharmacy has transitioned to AUC monitoring for vancomycin. AUC/JORDAN is the preferred PK/PD target and is associated with decreased risk of nephrotoxicity compared to traditional trough targets.
--- NOTE | 2024-07-28 14:34 | Pharmacy Report ---
Pharmacy Glycemic Short Note 2 - Date of Service July 28, 2024 - Glycemic Short BSG Results (Last 24 hours): 07/27/24 07/27/24 07/28/24 17:29 20:26 05:29 Glucose 136 H POC Glucose 236 H 196 H 07/28/24 07/28/24 07:50 12:30 Glucose POC Glucose 144 H 167 H OUTPATIENT ANTIDIABETIC REGIMEN: * Lantus 26 u HS, Humalog CR 1u/4-7 gm of carbs throughout the day * Last A1c was 7.6 on 06.22.24 ASSESSMENT: 07/28 * Patient received total of 35 units of insulin yesterday, of which 20 units were basal insulin * Fasting BSG 136 mg/dL - continues with NPO status today, plan is for OR for toe amputation. However, has not yet been sent to OR. Due to prolonged NPO status again today, will provide slight reduction in tonight's basal insulin dose * Will need to reassess basal tomorrow AM 07/27 * BSGs relatively well controlled since admission in goal range with just one high reading at 217 last night. * Pt NPO for possible surgical intervention related to his infected right toe. * Pt got 13 units of Lantus yesterday (takes 26 u at home) so will give another 10 units this morning * For NovoLog will utilize carb ratio close to patients home regimen. PLAN FOR INPATIENT GLYCEMIC CONTROL: * Basal insulin * Lantus 8 units bid * Bolus insulin * NovoLog per scale ACHS or Q6hrs while NPO * Goal Range: Low 110 mg/dL - High 140 mg/dL * Correction Factor: 45 mg/dL/unit * Nutritional / Prandial insulin per carb ratio of 1 unit per 5 grams CHO consumed
[2024-07-28] MEDS ORDERED: LIDOCAINE 2% 2 ML VIAL/AMP(20MG/ML) INFIL ONE (15:40)
[2024-07-28] MEDS ORDERED: PROPOFOL IV EMULSION 10 MG/ML 20 ML VIAL IV ONE ×4 (15:41→17:30)
--- NOTE | 2024-07-28 15:56 | Anesthesiology Consultation ---
Date of Service July 28, 2024 Assessment & Plan (1) Encounter for pre-operative examination: Chart Review Chart Review: Acceptable Risk for Surgery History Surgery Operation Date: 07/28/24 07:00 Proposed Procedures p Right Fourth Toe Amputation - Lulu Gilbert DPM Height/Weight Height: 6 ft Weight: 83.1 kg Allergies Allergy/AdvReac Type Severity Reaction Status Date / Time clindamycin Allergy Intermediate Rash Verified 07/13/24 14:13 lisinopril Allergy Intermediate falling Verified 07/13/24 14:13 down ? Penicillins Allergy Intermediate Hives Verified 07/13/24 14:13 Sulfa (Sulfonamide Allergy Intermediate HIVES Verified 07/13/24 14:13 Antibiotics) cashew nut Allergy Unknown Unknown Verified 07/13/24 14:13 peanut Allergy Unknown Unknown Verified 07/13/24 14:13 Medications Home Medications Medication Instructions Recorded Confirmed Last Taken multivitamin 1 tab PO QDL ##0 11/28/08 07/26/24 11/27/19 fluticasone propionate 50 2 sprays intranasal DAILY PRN 01/10/19 07/26/24 11/27/19 mcg/actuation nasal Nasal Congestion spray,suspension thiamine HCl (vitamin B1) 100 mg 100 mg PO QDL 01/10/19 07/26/24 11/27/19 tablet aspirin 81 mg tablet,delayed 81 mg PO QAM 11/10/19 07/26/24 11/28/19 release cholecalciferol (vitamin D3) 50 50 mcg PO DAILY 07/31/20 07/26/24 Unknown mcg (2,000 unit) capsule acetone (urine) test (Ketone Urine #50 ea 08/05/21 07/10/24 Unknown Test strips) FreeStyle Anna 2 Sensor (flash #2 ea 11/27/21 07/10/24 Unknown glucose sensor) polyethylene glycol 3350 17 17 g PO DAILY 12/01/21 07/26/24 Unknown gram/dose oral powder (Miralax) nitroglycerin 0.4 mg sublingual 0.4 mg sublingual UD PRN Chest 06/21/23 07/26/24 Unknown tablet (Nitrostat) Pain #100 tabs isosorbide mononitrate 30 mg 30 mg PO DAILY #90 tabs 07/16/23 07/26/24 Unknown tablet,extended release 24 hr doxazosin 2 mg tablet 2 mg PO DAILY 09/08/23 07/26/24 Unknown pen needle, diabetic 31 gauge x #200 ea 09/08/23 07/10/24 Unknown 1/4" (Comfort EZ Pen [place]) blood sugar diagnostic (OneTouch #180 ea 11/09/23 07/10/24 Unknown Verio test strips) blood-glucose meter (OneTouch #1 ea 11/09/23 07/10/24 Unknown Verio Flex Meter) insulin glargine 100 unit/mL 26 unit (0.26 mL) subcut QPM #0 mL 11/23/23 07/26/24 Unknown subcutaneous solution (Lantus U-100 Insulin) azelastine 137 mcg (0.1 %) nasal See Rx Instructions .Route 11/26/23 07/26/24 Unknown spray .COMPLEX #60 mL levothyroxine 25 mcg tablet 25 mcg PO QAM #90 tabs 11/30/23 07/26/24 Unknown potassium chloride 10 mEq 10 meq PO DAILY 90 days #90 tabs 12/27/23 07/26/24 Unknown tablet,extended release atorvastatin 40 mg tablet 40 mg PO DAILY #90 tabs 01/11/24 07/26/24 Unknown finasteride 5 mg tablet 5 mg PO DAILY #90 tabs 02/22/24 07/26/24 Unknown ipratropium 20 mcg-albuterol 100 1 puff inhalation Q6H PRN 03/17/24 07/26/24 Unknown mcg/actuation mist for inhalation shortness of breath or wheezing #4 (Combivent Respimat) grams lutein 10 mg tablet 10 mg PO DAILY 06/16/24 07/26/24 Unknown torsemide 10 mg tablet 10 mg PO DAILY #90 tabs 06/16/24 07/26/24 Unknown insulin lispro 100 unit/mL See Rx Instructions subcut TID 06/20/24 07/26/24 Unknown subcutaneous pen (Humalog KwikPen #105 mL (U-100) Insulin) warfarin 5 mg tablet See Rx Instructions PO .COMPLEX 07/03/24 07/26/24 Unknown #90 tabs glucagon HCl 1 mg solution for 1 mg subcut Q20M PRN hypoglycemia 07/06/24 07/26/24 Unknown injection (Glucagon (HCl) #1 ea Emergency Kit) metoprolol tartrate 25 mg tablet 25 mg PO BID #180 tabs 07/06/24 07/26/24 Unknown folic acid 1 mg tablet 1 mg PO DAILY #90 tabs 07/13/24 07/26/24 Unknown Active Medications Generic Name Dose Route Start Last Admin Trade Name Doris PRN Reason Stop Dose Admin Aspirin 81 mg 07/27/24 09:00 07/28/24 10:23 Aspirin 81 Mg Ectab PO 08/26/24 08:59 81 mg QAM PENNY Administration Atorvastatin Calcium 40 mg 07/27/24 09:00 07/28/24 10:24 Atorvastatin 40 Mg Tab PO 08/26/24 08:59 40 mg DAILY PENNY Administration Doxazosin Mesylate 2 mg 07/27/24 09:00 07/28/24 10:24 Doxazosin Mesylate Tab 2 Mg Tab PO 08/26/24 08:59 2 mg DAILY PENNY Administration Finasteride 5 mg 07/27/24 09:00 07/28/24 10:24 Finasteride 5 Mg Tab PO 08/26/24 08:59 5 mg DAILY PENNY Administration Metronidazole 500 mg in 100 mls @ 100 mls/hr 07/26/24 20:00 07/28/24 14:06 Flagyl IV 09/06/24 19:59 Infused Q8H PENNY Infusion Protocol Levofloxacin/Dextrose 750 mg in 150 mls @ 100 mls/hr 07/27/24 01:00 07/27/24 02:30 Levaquin/D5w IV 09/07/24 00:59 Infused Q48H PENNY Infusion Vancomycin HCl 1,250 mg/ 275 mls @ 200 mls/hr 07/27/24 09:00 07/28/24 11:47 Sodium Chloride IV 09/07/24 08:59 Infused DAILY@0900 PENNY Infusion Insulin Aspart 0 units 07/26/24 21:00 07/28/24 13:06 Insulin Aspart Per Unit Charge SC 08/25/24 20:59 Not Given ACHS PENNY Isosorbide Mononitrate 30 mg 07/27/24 09:00 07/28/24 10:23 Isosorbide [place] Extended Rel 30 Mg Tabcr PO 08/26/24 08:59 30 mg DAILY PENNY Administration Levothyroxine Sodium 25 mcg 07/27/24 06:30 07/28/24 05:20 Levothyroxine Sodium 25 Mcg Tablet PO 08/26/24 06:29 25 mcg DAILYBB PENNY Administration Metoprolol Tartrate 25 mg 07/27/24 09:00 07/28/24 10:23 Metoprolol Tartrate 25 Mg Tab PO 08/26/24 08:59 25 mg BID PENNY Administration Polyethylene Glycol 17 gm 07/27/24 09:00 07/28/24 10:25 Polyethylene (Miralax) 17 Gm Pack PO 08/26/24 08:59 Not Given DAILY PENNY Past Medical History Medical History (Updated 07/28/24 @ 15:56 by Guilherme Diaz MD) Heart failure with preserved ejection fraction Anemia Diabetic foot ulcers Aortic stenosis mild Atrial fibrillation with rapid ventricular response History of CVA (cerebrovascular accident) Carotid stenosis, left Hypertension Dyslipidemia Vertebral artery stenosis/occlusion Kidney disease, chronic, stage II (mild, 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) Peripheral arterial disease Urinary retention Vitamin D deficiency Positional vertigo Vitamin B 12 deficiency Chronic fatigue disorder Nocturia Microscopic hematuria Gout Glaucoma Visual field defect Factor V Leiden mutation Alcohol abuse Primary hypercoagulable state Past Family History Family History Mother , in her 60s of heart disease COPD (chronic obstructive pulmonary disease) Coronary heart disease Heart disease CHF Diabetes Hypertension Father , age 62 of melanoma Melanoma Heart disease Hypertension Brother Coronary heart disease Hypertension Myocardial infarction Son Diabetes Denies family history of Ovarian cancer Prostate cancer Breast cancer Lung cancer Colorectal cancer Stroke Past Surgical History Surgical History (Updated 07/28/24 @ 15:54 by Guilherme Diaz MD) S/P CABG x 3 History of surgical removal of ganglion cyst History of hydrocelectomy History of hand surgery S/P coronary artery stent placement H/O hernia repair Hx of appendectomy Social History Smoking Status: Never smoker Do You Dip or Chew Tobacco: No Hx Alcohol Use: No Alcohol type: wine alcohol intake frequency: a few times a month Hx Substance Use: No substance use type: does not use Physical Exam Vital Signs Last Vital Signs Temp 36.4 C L 07/28/24 15:14 Pulse 61 07/28/24 15:14 Resp 18 07/28/24 15:14 BP 113/46 L 07/28/24 15:14 Pulse Ox 100 07/28/24 15:14 O2 Del Method Room Air 07/28/24 15:14 FiO2 21 07/27/24 01:49 Testing Laboratory Results 07/28/24 05:29 07/28/24 05:29 PT 13.4 Seconds (9.0-12.0) H 07/26/24 18: INR 1.3 (0.9-1.1) H 07/26/24 18:19 07/28/24 07/28/24 12:30 07:50 POC Glucose 167 H 144 H Electrocardiogram Date: 11/12/23 Findings: + NSR @ (82) Echocardiogram Date: 10/07/23 LV Function: normal Valvular Disease: + (mild)
[2024-07-28] MEDS ORDERED: fentaNYL citrate PF 100 MCG/2 ML VIAL IV PRN (16:07)
[2024-07-28] MEDS ORDERED: ATROPINE SULFATE 0.1 MG/ML 10ML SYR IV PRN (16:07)
[2024-07-28] MEDS ORDERED: ONDANSETRON INJ 2 MG/ML 2 ML VIAL IV PRN (16:07)
--- NOTE | 2024-07-28 16:44 | History & Physical Bridge Note ---
Date of Service July 28, 2024 History & Physical Bridge Note I have examined the patient, reviewed the History & Physical and in the interval since the performance of the History & Physical I have noted the following changes of clinical significance: no changes noted
[2024-07-28] MEDS: BUPIVACAINE 0.25% PF 30 ML VIAL ONE (16:58)
--- NOTE | 2024-07-28 17:40 | Post Operative Brief Note ---
Immediate Post Op Note Date of Surgery July 28, 2024 Pre & Post Diagnosis Operation Date: 07/28/24 07:00 Pre-Op Diagnosis: Osteomyelitis Right Fourth Toe Post-Op Diagnosis: Osteomyelitis Right Fourth Toe I identified the patient and participated in the time-out.: Yes Procedure Operation Date: 07/28/24 07:00 Actual Procedures p Right Fourth Toe Amputation(Right) - Lulu Gilbert DPM Surgeon Lulu Gilbert DPM Mill Manager none Estimated Blood Loss 10 Findings Consistent with Post-Op Diagnosis Specimens right 4th toe pathology right 4th toe sent for cultures aerobic, anaerobic, with gram stain Anesthesia Type MAC Complications none Disposition Accompanied Patient To Recovery: Yes
--- NOTE | 2024-07-28 17:54 | Operative Report ---
Post Operative Report Pre & Post Diagnosis Operation Date: 07/28/24 07:00 Pre-Op Diagnosis: Osteomyelitis Right Fourth Toe Post-Op Diagnosis: Osteomyelitis Right Fourth Toe I identified the patient and participated in the time-out.: Yes Procedure Operation Date: 07/28/24 07:00 Actual Procedures p Right Fourth Toe Amputation(Right) - Lulu Gilbert DPM Surgeon Lulu Gilbert DPM Charter Boat Operator none Estimated Blood Loss 10 Findings Consistent with Post-Op Diagnosis Specimens 1. Right 4th toe sent to pathology 2. right 4th toe sent for aerobic and anaerobic cultures with gram stain. Anesthesia Type MAC Complications none Disposition Accompanied Patient To Recovery: Yes Indications This patient is a 83 year old type 1 DM with a right 4th toe diabetic toe ulcer. He presented to [facility] here in town late last week and was admitted for treatment of right fourth toe osteomyelitis. He has dealt with foot ulcers and infection for over a year now, though initially to the the right hallux. 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 He had planned to be transferred to [facility] but no beds became available, so was transferred to [facility]. He denies any current systemic signs of infection and believes he has improved over the last two to three days on IV antibiotics. Still, he understands that the fourth toe is infected with the bone exposed and has come to terms with the need for an amputation. Discussed the possible risks including but not limited to infection, swelling, transfer lesions, wound dehiscence, blood clots, deep venous thrombos is, pulmonary embolism, chronic pain, phantom pain, nerve injury, loss of limb, loss of life, failure of procedure, and need for additional procedures. Discussed the risks, benefits, and alternative to surgery. Patient states he understands and wants to proceed. A consent was signed in the preoperative setting. Description of Procedure The patient was brought back to the operating room and stayed in his bed in the supine position. A time-out was performed in order to correctly identify the patient, planned procedure, and correct toe. MAC was performed per the anesthesiologist. 10cc of 0.5% Marcaine plain was administered as a right 4th toe digital block under aseptic technique. No tourniquet was utilized. The right lower extremity was scrubbed, prepped, and draped in the usual aseptic manner. Attention was then directed to the right fourth toe at the level of the metatarsophalangeal joint where two semi elliptical incisions were made with the 15 blade. The incision was deepened and the fourth toe was disarticulated at the level of the metatarsophalangeal joint. The fourth toe was passed from the operative field to the sterile back table. A portion of the right 4th toe at the level of the proximal interphalangeal joint and part of the head of the proximal phalanx was obtained and sent for aerobic and anaerobic cultures with gram stain. The remainder of the right fourth toe was sent to pathology. Copious amount of saline was utilized to irrigate the surgical wound. Small bleeders were coagulated with cautery and pressure. Upon inspection of the fourth metatarsal head and cartilage appeared healthy and intact. Clinical clean margins are noted. No further purulent drainage could be identified proximally. Deep closure was performed with 4-0 monocryl. The skin was coapted with 4-0 nylon in a simple stitch fashion. The incision was dressed with betadine soaked adaptic, 4x4, gauze, kerlix, and Regan bandage. The patient tolerated the procedure and anesthesia well with all vital signs stable and vascular status intact to the right foot. The patient was transferred to recovery for brief post operative monitoring and will be transferred to the floor to resume the same level of care for continued medical management. Recommendations for the patient to be discharged on 2 weeks of oral antibiotics and to follow up at our office in 1 week. The patient should keep the bandage dry, clean, and intact. The patient may ambulate as tolerated in post op shoe. The patient is cleared for discharge per podiatry and to be dis charged when stable per the hospitalist. I attest to the content of the Intraoperative Record and any orders documented therein. Any exceptions are noted below.
--- NOTE | 2024-07-28 17:54 | Anesthesiology Progress Note ---
Date of Service July 28, 2024 Anesthesia Post Procedure Vital Signs Vital Signs: Temp Pulse Pulse Resp BP BP Pulse Ox 07/28/24 17:45 64 12 119/52 L 98 07/28/24 17:35 36 C L 74 16 115/42 L 99 07/28/24 16:00 36.6 C 66 20 138/55 L 99 07/28/24 15:14 36.4 C L 61 18 113/46 L 100 07/28/24 08:00 07/28/24 07:17 36.3 C L 64 18 119/54 L 100 07/27/24 20:50 07/27/24 20:27 36.8 C 70 16 135/70 97 O2 Del Method 07/28/24 17:45 Room Air 07/28/24 17:35 Room Air 07/28/24 16:00 Room Air 07/28/24 15:14 Room Air 07/28/24 08:00 Room Air 07/28/24 07:17 CPAP 07/27/24 20:50 Room Air 07/27/24 20:27 Room Air Transfer of Care Handoff Completed per policy Notes Mental Status: alert / awake / arousable and participated in evaluation Patient Amnestic to Procedure: Yes Nausea / Vomiting: adequately controlled Pain: adequately controlled Airway Patency, RR, SpO2: stable & adequate BP & HR: stable & adequate Hydration State: stable & adequate Anesthetic Complications: no major complications apparent and Pt Satisfied with anesthetic care
[2024-07-28] MEDS ORDERED: levoFLOXacin/D5W 500 MG/100 ML BAG IV SCH (21:00)
[2024-07-28] MEDS: LANTUS PER UNIT CHARGE SC SCH (21:24)
--- NOTE | 2024-07-28 23:50 | Hospitalist Progress Note ---
Date of Service July 28, 2024 Assessment & Plan (1) Osteomyelitis of toe of right foot: Plan: Based on CT scan At [facility] - images uploaded to [employer] web Will continue vancomycin, Levaquin + metronidazole Follow up wound culture at [facility] Consult podiatry (discussed with Dr Gilbert on admission): tolerated procedure. Patient had right toe amputation. Started diet. continue antibiotics (2) Diabetes type 1, uncontrolled: Plan: Hemoglobin A1c 7.6 in June, no need to repeat Will split his basal dosing to 30 units SQ BID holding his morning dose prior to any potential surgical treatment NovoLog: --Goal BSG Range: Low 110 mg/dL, High 140 mg/dL --Correction Factor: 15 mg/dL/unit --Carbohydrate ratio = 5 g/unit --BSGs ACHS if eating, q6h if npo Consult pharmacy for ongoing glycemic control fasting blood sugar at goal (3) Paroxysmal atrial fibrillation: Plan: Currently present regular rhythm Prior maze procedure Continue metoprolol titrate 25 mg p.o. BID heart rate stable Plan ROSENDO - CPAP HS CAD -continue aspirin, metoprolol, atorvastatin, isosorbide mononitrate Hypothyroidism - TSH WNL in June, continue levothyroxine BPH - continue doxazosin and finasteride VTE prophylaxis - with reduced renal function will give 40 mg Lovenox subcu now and defer additional dosing pending decision regarding surgical treatment, patient is on warfarin as outpatient for hypercoagulable state Diet - T1DM Disposition - admit to med/surg Admission and Anticipated Discharge Date Admission Date: July 26, 2024 Subjective Patient reports no new symptoms. Physical Exam Constitutional: WD/WN, vitals as above Respiratory: normal respiratory effort, lungs clear to auscultation Cardiovascular: RRR, no murmur, no edema Gastrointestinal (Abdomen): normal bowel sounds, soft, nontender, no hepatosplenomegaly Psychiatric: A+Ox3, euthymic affect Results & Data Results & Data Vital Signs (Past 12 Hours) Vital Signs Temp Pulse Pulse Resp BP BP Pulse Ox 07/28/24 19:30 36.9 C 79 18 136/82 99 07/28/24 18:27 36.8 C 68 18 111/47 L 94 07/28/24 17:55 36.5 C 62 20 116/47 L 100 07/28/24 17:45 64 12 119/52 L 98 02/21/25 17:35 36 C L 74 16 115/42 L 99 07/28/24 16:00 36.6 C 66 20 138/55 L 99 07/28/24 15:14 36.4 C L 61 18 113/46 L 100 O2 Del Method 07/28/24 19:30 Room Air 07/28/24 18:27 Room Air 07/28/24 17:55 Room Air 07/28/24 17:45 Room Air 07/28/24 17:35 Room Air 07/28/24 16:00 Room Air 07/28/24 15:14 Room Air PG Care Time/CCT Total # of Minutes Spent Total Time Spent with Patient: Total time spent is greater than 50% in coordination of care (as documented) at patient's floor/unit and/or counseling patient: Coding Level of Care Code 40893 SUB INP/OBS CARE 3/50MIN Diagnoses Osteomyelitis of toe of right foot M86.9 Diabetes type 1, uncontrolled E10.65 Paroxysmal atrial fibrillation I48.0
[2024-07-29] MEDS: ACETAMINOPHEN 325 MG TAB PO STA (03:46)
[2024-07-29 09:41] LABS: Hematocrit (blood only) 34.4 % (42.0-52.0); Hemoglobin 11.5 g/dl (14.0-18.0); Mean Corpuscular Hemoglobin 31.2 pg (25.0-34.0); Mean Corpuscular Hgb Conc 33.4 g/dL (32.0-36.0); Mean Corpuscular Volume 93.2 fL (80.0-100.0); Platelet Count 187 K/uL (130-400); RDW Coefficient of Variation 12.4 % (11.5-14.5); RDW Standard Deviation 42.5 fL (36.4-46.3); Red Blood Count 3.69 M/uL (4.70-6.10); White Blood Count 6.95 K/ul (4.8-10.8)
[2024-07-29 09:55] LABS: BUN Creatinine Ratio 16.4 (10-20); Calcium 8.7 mg/dl (8.6-10.3); Creatinine Clr Calc Pharmacy 45.8 ml/min; Potassium 4.3 mmol/L (3.5-5.1)
[2024-07-29] MEDS: LANTUS PER UNIT CHARGE SC SCH (20:48)
--- NOTE | 2024-07-29 23:41 | Hospitalist Progress Note ---
Date of Service July 29, 2024 Assessment & Plan (1) Osteomyelitis of toe of right foot: Plan: Based on CT scan At [facility] - images uploaded to [employer] web Will continue vancomycin, Levaquin + metronidazole Follow up wound culture at [facility] Consult podiatry (discussed with Dr Gilbert on admission): tolerated procedure. Patient had right 4th toe amputation. Started diet. continue antibiotics culture growing staph aureus. awaiting culture sensitivities. (2) Diabetes type 1, uncontrolled: Plan: Hemoglobin A1c 7.6 in June, no need to repeat Will split his basal dosing to 30 units SQ BID holding his morning dose prior to any potential surgical treatment NovoLog: --Goal BSG Range: Low 110 mg/dL, High 140 mg/dL --Correction Factor: 15 mg/dL/unit --Carbohydrate ratio = 5 g/unit --BSGs ACHS if eating, q6h if npo Consult pharmacy for ongoing glycemic control fasting blood sugar at goal on 07/29 (3) Paroxysmal atrial fibrillation: Plan: Currently present regular rhythm Prior maze procedure Continue metoprolol titrate 25 mg p.o. BID HR at goal heart rate stable Plan ROSENDO - CPAP HS CAD -continue aspirin, metoprolol, atorvastatin, isosorbide mononitrate Hypothyroidism - TSH WNL in June, continue levothyroxine BPH - continue doxazosin and finasteride VTE prophylaxis - with reduced renal function will give 40 mg Lovenox subcu now and defer additional dosing pending decision regarding surgical treatment, patient is on warfarin as outpatient for hypercoagulable state Diet - T1DM Disposition - admit to med/surg Admission and Anticipated Discharge Date Admission Date: July 26, 2024 Subjective 83 yo male reports no new symptoms. Physical Exam Constitutional: WD/WN, vitals as above Respiratory: normal respiratory effort, lungs clear to auscultation Cardiovascular: RRR, no murmur, no edema Gastrointestinal (Abdomen): normal bowel sounds, soft, nontender, no hepatosplenomegaly Psychiatric: A+Ox3, euthymic affect Results & Data Results & Data Vital Signs (Past 12 Hours) Vital Signs Temp Pulse Pulse Resp BP BP Pulse Ox 07/29/24 20:24 36.9 C 71 18 135/68 98 07/29/24 18:00 36.9 C 75 16 131/66 99 07/29/24 15:41 37.3 C 67 18 112/66 97 07/29/24 11:42 36.7 C 66 18 137/65 99 O2 Del Method 07/29/24 20:24 Room Air 07/29/24 18:00 Room Air 07/29/24 15:41 Room Air 07/29/24 11:42 Room Air PG Care Time/CCT Total # of Minutes Spent Total Time Spent with Patient: Total time spent is greater than 50% in coordination of care (as documented) at patient's floor/unit and/or counseling patient: Coding Level of Care Code 03199 SUB INP/OBS CARE 3/50MIN Diagnoses Osteomyelitis of toe of right foot M86.9 Diabetes type 1, uncontrolled E10.65 Paroxysmal atrial fibrillation I48.0
[2024-07-30 06:29] LABS: Hematocrit (blood only) 35.1 % (42.0-52.0); Hemoglobin 11.5 g/dl (14.0-18.0); Mean Corpuscular Hemoglobin 31.8 pg (25.0-34.0); Mean Corpuscular Hgb Conc 32.8 g/dL (32.0-36.0); Mean Platelet Volume 9.9 fL (9.4-12.4); Platelet Count 194 K/uL (130-400); RDW Coefficient of Variation 12.6 % (11.5-14.5); RDW Standard Deviation 44.6 fL (36.4-46.3); Red Blood Count 3.62 M/uL (4.70-6.10); White Blood Count 7.36 K/ul (4.8-10.8)
[2024-07-30 06:38] LABS: BUN Creatinine Ratio 19.6 (10-20); C Reactive Protein 1.01 mg/dl (0-0.5); Calcium 8.7 mg/dl (8.6-10.3); Potassium 4.7 mmol/L (3.5-5.1)
[2024-07-30] MEDS: LANTUS PER UNIT CHARGE SQ SCH (09:45)
[2024-07-30] MEDS: SODIUM CHLORIDE 0.9% 1,000 ML IV SCH (13:14)
[2024-07-30] MEDS: INSULIN ASPART PER UNIT CHARGE SC SCH (17:26)
--- NOTE | 2024-07-30 22:34 | Hospitalist Progress Note ---
Date of Service July 30, 2024 Assessment & Plan (1) Osteomyelitis of toe of right foot: Plan: Based on CT scan At [facility] - images uploaded to [employer] web Will continue vancomycin, Levaquin + metronidazole Follow up wound culture at [facility] Consult podiatry (discussed with Dr Gilbert on admission): tolerated procedure. Patient had right 4th toe amputation. Started diet. continue antibiotics culture growing: MRSA Plan to discharge on oral antibiotics, bactrim, doxycycline complete 2 weeks post surgery. However, patient unsteady on ortho shoe. discharge held, will await PT input. reviewed labs (2) Diabetes type 1, uncontrolled: Plan: Hemoglobin A1c 7.6 in June, no need to repeat Will split his basal dosing to 30 units SQ BID holding his morning dose prior to any potential surgical treatment NovoLog: --Goal BSG Range: Low 110 mg/dL, High 140 mg/dL --Correction Factor: 15 mg/dL/unit --Carbohydrate ratio = 5 g/unit --BSGs ACHS if eating, q6h if npo Consult pharmacy for ongoing glycemic control fasting blood sugar at goal on 07/30 (3) Paroxysmal atrial fibrillation: Plan: Currently present regular rhythm Prior maze procedure Continue metoprolol titrate 25 mg p.o. BID HR at goal heart rate stable Plan ROSENDO - CPAP HS CAD -continue aspirin, metoprolol, atorvastatin, isosorbide mononitrate Hypothyroidism - TSH WNL in June, continue levothyroxine BPH - continue doxazosin and finasteride VTE prophylaxis - with reduced renal function will give 40 mg Lovenox subcu now and defer additional dosing pending decision regarding surgical treatment, patient is on warfarin as outpatient for hypercoagulable state Diet - T1DM Disposition - admit to med/surg Admission and Anticipated Discharge Date Admission Date: July 26, 2024 Subjective Patient reports no new symptoms. Physical Exam Constitutional: WD/WN, vitals as above Respiratory: normal respiratory effort, lungs clear to auscultation Cardiovascular: RRR, no murmur, no edema Gastrointestinal (Abdomen): normal bowel sounds, soft, nontender, no hepatosplenomegaly Psychiatric: A+Ox3, euthymic affect Results & Data Results & Data Vital Signs (Past 12 Hours) Vital Signs Temp Pulse Pulse Resp BP BP Pulse Ox 07/30/24 20:38 36.8 C 64 16 116/45 L 97 02/23/25 16:02 36.6 C 68 16 105/53 L 98 O2 Del Method 07/30/24 20:38 Room Air 07/30/24 16:02 Room Air PG Care Time/CCT Total # of Minutes Spent Total Time Spent with Patient: Total time spent is greater than 50% in coordination of care (as documented) at patient's floor/unit and/or counseling patient: Coding Level of Care Code 55445 SUB INP/OBS CARE 3/50MIN Diagnoses Osteomyelitis of toe of right foot M86.9 Diabetes type 1, uncontrolled E10.65 Paroxysmal atrial fibrillation I48.0
[2024-07-31] MEDS: ACETAMINOPHEN 500 MG TAB PO PRN (01:49)
[2024-07-31 07:27] LABS: Hematocrit (blood only) 33.9 % (42.0-52.0); Hemoglobin 11.5 g/dl (14.0-18.0); Mean Corpuscular Hgb Conc 33.9 g/dL (32.0-36.0); Mean Corpuscular Volume 94.4 fL (80.0-100.0); Mean Platelet Volume 10.3 fL (9.4-12.4); Platelet Count 200 K/uL (130-400); RDW Coefficient of Variation 12.7 % (11.5-14.5); RDW Standard Deviation 43.3 fL (36.4-46.3); Red Blood Count 3.59 M/uL (4.70-6.10); White Blood Count 6.18 K/ul (4.8-10.8)
[2024-07-31] MEDS: INSULIN ASPART PER UNIT CHARGE SC SCH (08:40)
[2024-07-31 08:45] LABS: BUN Creatinine Ratio 16.9 (10-20); Calcium 8.7 mg/dl (8.6-10.3); Creatinine Clr Calc Pharmacy 43.3 ml/min; Potassium 4.2 mmol/L (3.5-5.1)
[2024-07-31] MEDS: VANCOMYCIN LEVEL ONE (08:47)
[2024-07-31] MEDS: VANCOMYCIN HCL 1,500 MG in SODIUM CHLORIDE 0.9% 500 ML IV SCH (09:00)
--- NOTE | 2024-07-31 09:09 | Hospitalist Progress Note ---
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 Gilbert performed fourth toe amputation on July 28 tolerated procedure. culture growing: MRSA However, patient unsteady on ortho shoe. discharge held, will await PT input. #Type 1 diabetes Hemoglobin A1c 7.6 in June, no need to repeat Will split his basal dosing to 30 units SQ BID holding his morning dose prior to any potential surgical treatment NovoLog: --Goal BSG Range: Low 110 mg/dL, High 140 mg/dL --Correction Factor: 15 mg/dL/unit --Carbohydrate ratio = 5 g/unit --BSGs ACHS if eating, q6h if npo Consult pharmacy for ongoing glycemic control fasting blood sugar at goal on 07/30 #Paroxysmal atrial fibrillation Currently present regular rhythm Prior maze procedure Continue metoprolol titrate 25 mg p.o. BID HR at goal heart rate stable ROSENDO - CPAP HS CAD -continue aspirin (resume postop), metoprolol, atorvastatin, isosorbide mononitrate Hypothyroidism - TSH WNL in June, continue levothyroxine BPH - continue doxazosin and finasteride VTE prophylaxis - with reduced renal function will give 40 mg Lovenox subcu now and defer additional dosing pending decision regarding surgical treatment, patient is on warfarin as outpatient for factor V Leiden hypercoagulable state Diet - T1DM Disposition - admit to med/surg Admission and Anticipated Discharge Date Admission Date: July 26, 2024 Subjective Patient is recovering from fourth toe amputation. He is an orthopedic shoe on a dressing in place. Surgery does not replace the dressing yet at this point in time. Patient self admits that he did poorly with ambulation and is encouraged to go to rehab. Pain control is good but he does have bilateral neuropathy Physical Exam Physical Exam: Awake alert no distress. As mentioned he has Betadine soaked dressing in place on his right foot this is dry the toes that can be visualized which are 1 2 and 3 are intact without evidence of skin breakdown and with acceptable capillary refill Results & Data Results & Data Vital Signs (Past 12 Hours) Vital Signs Temp Pulse Resp BP Pulse Ox O2 Del Method 07/31/24 08:52 72 07/31/24 07:05 97.7 F 59 L 16 139/57 L 98 Room Air Laboratory Results Reviewed CBC Reviewed chemistry CKD 3 PG Care Time/CCT Total # of Minutes Spent Total Time Spent with Patient: Total time spent is greater than 50% in coordination of care (as documented) at patient's floor/unit and/or counseling patient: Coding Level of Care Code 91369 SUB INP/OBS CARE 3/50MIN Diagnoses Osteomyelitis of toe of right foot M86.9 Diabetes type 1, uncontrolled E10.65 Paroxysmal atrial fibrillation I48.0
--- NOTE | 2024-07-31 09:11 | Pharmacy Report ---
Pharmacy PK ABX Note - Date of Service July 31, 2024 - Assessment and Plan Assessment 07/31: * Vancomycin level this morning was 10.1 which extrapolates to a subtherapeutic AUC (< 400). The vancomycin has been increased to 1500mg iv q 24 hours. * Patient with right 4th toe amputation 07/28 * Toe culture from 07/28 finalized: MRSA, vanco JORDAN=1 * SCr has been slightly elevated from baseline, but has been stable. 07/28 * Vancomycin random level this AM ~11 mcg/ml - current vancomycin dosing estimated to achieve goal AUC/JORDAN therefore will continue current regimen. 07/27: * 83 year old M receiving vancomycin for treatment of osteomyelitis of right toe. Pertinent microbiologic data includes: outside hospital wound cx growing Staph * Day # 2 of antimicrobial therapy. Plan Vancomycin * Vancomycin level this morning was 10.1 which extrapolates to AUC of 393. * Maintenance dose of vancomycin increased to 1500mg iv q 24 hours starting at 0900 today. * Another vancomycin level has been scheduled for 08/03 with AM labs Pharmacy will continue to follow and will adjust dose/frequency as necessary. Thank you. Pharmacy has transitioned to AUC monitoring for vancomycin. AUC/JODRAN is the preferred PK/PD target and is associated with decreased risk of nephrotoxicity compared to traditional trough targets.
--- NOTE | 2024-07-31 11:54 | Pharmacy Report ---
Pharmacy Glycemic Short Note 2 - Date of Service July 31, 2024 - Glycemic Short BSG Results (Last 24 hours): 07/30/24 07/30/24 07/31/24 16:46 20:30 06:44 Glucose 135 H POC Glucose 184 H 155 H 07/31/24 07/31/24 07:42 11:41 Glucose POC Glucose 147 H 231 H OUTPATIENT ANTIDIABETIC REGIMEN: * Lantus 26 u HS, Humalog CR 1u/4-7 gm of carbs throughout the day * Last A1c was 7.6 on 06.22.24 ASSESSMENT: 07/31 * Patient received a total of 71 units of insulin yesterday (25 units were basal, 46 units were bolus) * Patient was transitioned to once daily dosing of Lantus yesterday. * Fasting BSG was 147mg/dL today, so Lantus 25units SQ daily will be continued for now. * Lunch BSGs have been elevated so the bolus insulin parameters were tightened with breakfast only starting today and then loosened the rest of the day. 07/28 * Patient received total of 35 units of insulin yesterday, of which 20 units were basal insulin * Fasting BSG 136 mg/dL - continues with NPO status today, plan is for OR for toe amputation. However, has not yet been sent to OR. Due to prolonged NPO status again today, will provide slight reduction in tonight's basal insulin dose * Will need to reassess basal tomorrow AM 07/27 * BSGs relatively well controlled since admission in goal range with just one high reading at 217 last night. * Pt NPO for possible surgical intervention related to his infected right toe. * Pt got 13 units of Lantus yesterday (takes 26 u at home) so will give another 10 units this morning * For NovoLog will utilize carb ratio close to patients home regimen. PLAN FOR INPATIENT GLYCEMIC CONTROL: * Basal insulin * Lantus 25 units SQ daily * Bolus insulin * NovoLog per scale ACHS or Q6hrs while NPO * Goal Range: Low 110 mg/dL - High 140 mg/dL * Breakfast: -Correction Factor: 40 mg/dL/unit -Nutritional / Prandial insulin per carb ratio of 1 unit per 3 grams CHO consumed * Lunch, supper, HS -Correction Factor: 45 mg/dL/unit -Nutritional / Prandial insulin per carb ratio of 1 unit per 4 grams CHO consumed
[2024-08-01 07:21] VITALS: PULSE 65; RESP 18; TEMP 97.5; O2SAT 99
[2024-08-01] MEDS: ENOXAPARIN INJ 40 MG/0.4 ML SYR SQ SCH (07:40)
[2024-08-01 08:24] LABS: Creatinine Clr Calc Pharmacy 39.1 ml/min
--- NOTE | 2024-08-01 09:04 | Discharge Summary ---
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 Gilbert performed fourth toe amputation on July 28 tolerated procedure. However, patient unsteady on ortho shoe. discharge held, PT supports rehab, anticipate [facility] trnsfer 08/01 #Type 1 diabetes Hemoglobin A1c 7.6 in June, no need to repeat resume home dosing glargine 26 and ssi #Paroxysmal atrial fibrillation Currently present regular rhythm Prior maze procedure Continue metoprolol titrate 25 mg p.o. BID HR at goal heart rate stable ROSENDO - CPAP HS CAD -continue aspirin (resume postop), metoprolol, atorvastatin, isosorbide mononitrate Hypothyroidism - TSH WNL in June, continue levothyroxine BPH - continue doxazosin and finasteride VTE prophylaxis - with reduced renal function will give 40 mg Lovenox subcu now and defer additional dosing pending decision regarding surgical treatment, petty mendoza is on warfarin as outpatient for factor V Leiden hypercoagulable state Notes For Next Care Provider certain watch for INR and warfarin restart Linezolid is new on dc follow up Dr Smart office in one week Admission HPI Per Admitting Provider Sheng Cagle is an 83-year-old male who presents as a direct admission from [facility] due to right fourth toe osteomyelitis. He initially went to [facility] ER on July 21 with 2 days of erythema from his right fourth toe spreading up his foot to his ankle. Minimal pain although he has neuropathy at baseline. Draining sanguinous purulent discharge. CT in the emergency room showed suspected mild erosion of the proximal phalanx of the fourth toe likely representing soft tissue infection with possible involvement of underlying bone. Wound culture grew staph although unknown if this was MRSA or MSSA. Blood cultures negative to date. Initial plan was for transfer to [place] or have local orthopedic evaluation at [facility] pending transfer. Reportedly after several days awaiting for a bed; the orthopedic surgeon at [facility] reported he does not operate on feet therefore we were contacted for transfer. His warfarin has been held and switched to Lovenox 120 mg subcu daily with last dose July 25. He has been treated with vancomycin, Levaquin, metronidazole for osteomyelitis. He is under Dr Gilbert as an outpatient. Patient currently reports no pain, fever or chills. Reports erythema has been improving. Discharge Exam doing well except for ambulation Discharge Plan Discharge Items Patient Disposition: Transfer Acute Care Hospital Reason For Visit: OSTEOMYELITIS; NEEDS R 4TH TOE AMPUTATED Discharge Diagnosis: diabetic foot infection right 4th toe osteomyelitis s/p amputation 07/28 Activity: Per Instructions section Activity Comment: PT /OT Non-emergency contact: Primary Care Provider and Surgeon Call non-emergency contact if: your symptoms worsen Follow-up/Referrals: Guilherme Moe, [Primary Care Provider] - Dm Gilbert DPM [Physician] - Diet: Carb Consistent or DM2 Addtl Attending Provider Instructions: keep dressing clean and dry, change as needed follow up in one week with Podiatry Dr Gilbert 2 weeks of antibiotics Pending Studies at Discharge: No Stand-Alone Forms: My [facility] Skilled Items Patient informed of condition?: Yes DNR: No Discharge Level of Care: Acute rehab Communicable Disease: No Discharge Prognosis: Stable Lines: None Urinary Catheter: No Medications and DC Order Prescriptions: New linezolid 600 mg tablet 600 mg PO BID 14 Days Qty: 28 0RF Continued multivitamin Tablet 1 tab PO QDL Qty: 0 (DME) FreeStyle Anna 2 Sensor Kit See Rx Instructions .Route Qty: 2 5RF Rx Instructions: Change every 14 days nitroglycerin [Nitrostat] 0.4 mg tablet, sublingual 0.4 mg sublingual UD PRN (Reason: Chest Pain) Qty: 100 3RF Rx Instructions: q 5min for chest pain up to 3 doses. isosorbide mononitrate 30 mg tablet extended release 24 hr 30 mg PO DAILY Qty: 90 3RF insulin glargine [Lantus U-100 Insulin] 100 unit/mL solution 26 unit subcut QPM Qty: 0 0RF Rx Instructions: PER PT HE IS TAKING 26 UNITS QP.M.-CONFIRMED ON 11/22 azelastine 137 mcg (0.1 %) aerosol,spray See Rx Instructions .ROUTE .COMPLEX Qty: 60 3RF Dose Instruction: USE 1 SPRAY IN BOTH NOSTRILS TWICE DAILY Rx Instructions: USE 1 SPRAY IN BOTH NOSTRILS TWICE DAILY levothyroxine 25 mcg tablet 25 mcg PO QAM Qty: 90 3RF potassium chloride 10 mEq tablet extended release 10 meq PO DAILY 90 Days Qty: 90 3RF atorvastatin 40 mg tablet 40 mg PO DAILY Qty: 90 3RF finasteride 5 mg tablet 5 mg PO DAILY Qty: 90 3RF insulin lispro [Humalog KwikPen Insulin] 100 unit/mL insulin pen See Rx Instructions subcut TID Qty: 105 3RF Rx Instructions: subcutaneously three times a day; use insulin to carbohydrate ratio of 1:3; up to TDD 105 units warfarin 5 mg tablet See Rx Instructions PO .COMPLEX Qty: 90 1RF Protocol: Dose Management Condition: Wednesday Dose/Route: 5 mg Instruction: 1 x 5 mg tablet Condition: Wednesday Dose/Route: 2.5 mg Instruction: 0.5 x 5 mg tablets Condition: Wednesday Dose/Route: 5 mg Instruction: 1 x 5 mg tablet Condition: Wednesday Dose/Route: 2.5 mg Instruction: 0.5 x 5 mg tablets Condition: Dose/Route: 5 mg Instruction: 1 x 5 mg tablet Condition: Wednesday Dose/Route: 2.5 mg Instruction: 0.5 x 5 mg tablets Condition: Wednesday Dose/Route: 5 mg Instruction: 1 x 5 mg tablet Protocol Text: Adjustment Start Date: 07/20/24 INR Value: 2.9 INR Date: 07/20/24 Recheck Date: 08/03/24 Rx Instructions: 5mg on Wednesday, Wednesday, , Wednesday. 2.5mg on Wednesday, Wednesday, Wednesday glucagon HCl [Glucagon (HCl) Emergency Kit] 1 mg recon soln 1 mg subcut Q20M PRN (Reason: hypoglycemia) Qty: 1 1RF Rx Instructions: as needed for hypoglygemia. inject into thigh, upper arm, or buttock as needed for severe hypoglycemia. seek medical help after use. metoprolol tartrate 25 mg tablet 25 mg PO BID Qty: 180 3RF folic acid 1 mg tablet 1 mg PO DAILY Qty: 90 3RF aspirin 81 mg tablet,delayed release (DR/EC) 81 mg PO QAM (DME) Ketone Urine Test Strip See Rx Instructions .MEDSUPPLY Qty: 50 2RF Rx Instructions: As directed to check ketones in urine if blood sugar is higher than 300 cholecalciferol (vitamin D3) 50 mcg (2,000 unit) capsule 50 mcg PO DAILY doxazosin 2 mg tablet 2 mg PO DAILY (DME) pen needle, diabetic [Comfort EZ Pen [place]] 31 gauge x 1/4" needle See Rx Instructions .Route Qty: 200 11RF Rx Instructions: use with insulin pen 4-6 times daily thiamine HCl (vitamin B1) 100 mg tablet 100 mg PO QDL fluticasone propionate 50 mcg/actuation spray,suspension 2 sprays INTNAS DAILY PRN (Reason: Nasal Congestion) polyethylene glycol 3350 [Miralax] 17 gram/dose powder 17 g PO DAILY lutein 10 mg tablet 10 mg PO DAILY Rx Instructions: give with meal/snack torsemide 10 mg tablet 10 mg PO DAILY Qty: 90 3RF (DME) OneTouch Verio test strips Strip See Rx Instructions .MEDSUPPLY Qty: 180 3RF Rx Instructions: check blood sugars twice a day (DME) blood-glucose meter [OneTouch Verio Flex meter] Misc See Rx Instructions miscellaneous .MEDSUPPLY Qty: 1 0RF Rx Instructions: As directed Combivent Respimat 20-100 mcg/actuation mist 1 puff inhalation Q6H PRN (Reason: shortness of breath or wheezing) Qty: 4 2RF Discharge Orders: Discharge Order (Routine); Ordered 08/01/24 Ordered By: Andrew Castellanos Admission Data Admit Date/Time: 07/26/24 16:25 Attending Provider: Andrew Castellanos Admit Provider: Sylvain Walker Primary Care Provider: Guilherme Moe [facility]; Dm Gilbert Other Interventions: Discharge Summary Assessment (RN) Last Done: 08/01/24 12:20 Hospital Stay Data Consultations 07/26/24 18:10 Consult Podiatry Routine Procedures Performed Operation Date: 07/28/24 07:00 Actual Procedures p Right Fourth Toe Amputation(Right) - Lulu Gilbert DPM Pending Results Patient Have Any Pending Studies at Discharge: No Discharge Instructions Given to Patient (Per Discharging Provider) keep dressing clean and dry, change as needed follow up in one week with Podiatry Dr Gilbert 2 weeks of antibiotics Total Time Total Time Spent Total Time Spent (In Minutes): It required greater than 30 minutes to prepare this patient for discharge. Coding Level of Care Code 11815 INP/OBS DISCH >30 MIN Diagnoses Osteomyelitis of toe of right foot M86.9 Diabetes type 1, uncontrolled E10.65 Paroxysmal atrial fibrillation I48.0
--- NOTE | 2024-08-01 11:29 | Podiatry Progress Note ---
Date of Service August 01, 2024 Assessment & Plan (1) Osteomyelitis of toe of right foot: (2) Diabetic foot ulcers: Plan Patient examined and evaluated. Patient is 4 days s/p right 4th toe amputation at the level of MTPJ. Bandage changed performed with adaptic, 4x4 gauze, abd pad, and CONSTANTIN bandage. Right 4th toe Amputation is healing well without clinical signs of infection. Advised to keep bandage dry, clean, and intact. Advised to use post op shoe for ambulation. Patient will be discharged to rehab and advised patient to follow up with our office in 1 week for continued post op care. Admission and Anticipated Discharge Date Admission Date: July 26, 2024 Subjective Patient seen bedside for a bandage change. Reports no pain to his right foot. States he is ambulating better in the smaller size post op shoe. Denies any nausea, vomiting, fever, chills within the past 24 hours. States he will be going to rehab following discharge later today. Review of Systems Review of Systems: All systems reviewed & are unremarkable except as noted in Subjective Physical Exam Physical Exam: Surgical site is well coapted with sutures intact. No drainage noted. No skin necrosis. Amputation site skin is pink and healthy appearing. No forefoot erythema or edema. CFT within normal limits. No pain to palpation amputation site. Negative Kristine's sign bilateral. Constitutional: WD/WN, vitals as above Respiratory: normal respiratory effort Cardiovascular: Extremities: normal capillary refill Results & Data Results & Data Vital Signs (Past 12 Hours) Vital Signs Temp Pulse Resp BP Pulse Ox O2 Del Method 08/01/24 09:06 CPAP 08/01/24 07:19 36.4 C L 65 18 128/50 L 99 CPAP (2) Diabetic foot ulcers Diabetes mellitus type: type 1 Diabetic foot ulcer location: toe Laterality: right Non-pressure ulcer stage: limited to breakdown of skin Qualified Code(s): E10.621 - Type 1 diabetes mellitus with foot ulcer; L97.511 - Non- pressure chronic ulcer of other part of right foot limited to breakdown of skin
[2024-08-01 11:32] VITALS: BP 105/53
[2024-08-01] MEDS: LANTUS PER UNIT CHARGE SQ SCH (12:08)
--- NOTE | 2024-08-02 08:05 | Coding Query ---
CODING QUERY FOR UNCONTROLLED DIABETES To promote full compliance with coding requirements relating to patient care, provider participation is requested in all cases of data coder operator uncertainty. Please assist us with the question(s) below: Coding Question: The term uncontrolled Diabetes was used throughout the record. To be able to code this diagnosis properly, could you please clarify the diagnosis below: ( ) Uncontrolled Diabetes meaning hypoglycemia ( xxx) Uncontrolled Diabetes meaning hyperglycemia ( ) Other (please specify) Principal Diagnosis: "that condition established after study, to be chiefly responsible for occasioning the admission of the patient to the hospital for care." Co-Existing Principal Diagnosis: "when two or more diagnoses equally meet the criteria for principal diagnosis as determined by the circumstances of admission, diagnostic work up, and/or therapy provided, and the Alphabetic Index, Tabular List, or another coding guideline does not provide sequencing direction, any one of the diagnoses may be sequenced first." "When the physician has documented what appears to be a current diagnosis in the body of the record, but has not included the diagnosis in the final diagnostic statement, the physician should be asked whether the diagnosis should be added." (Source Coding [facility] 2 QTR90. p3-4) PHILLIP
== END 2024-08-01 12:42 | DRG 617 ==
LOC: SUATTDRO 16:25 → 2W 17:01 → 3W 07-29 17:10